=== PATIENT | male | born 1945 | race Caucasian/White ===

== ENCOUNTER 2024-06-14 09:14 | Emergency (ER) | payer MEDICARE, OTHER, SELFPAY ==
--- NOTE | ~2024-06-14 | XR_ITS ---
EXAMINATION: XR knee LT 3V DATE: 06/14/2024 10:04 INDICATION: Left knee pain. Fall. TECHNIQUE: 3 views of left knee were obtained. COMPARISON: None. FINDINGS: Alignment is normal. No fracture. There is moderate osteoarthritis of patellofemoral compar tment and mild osteoarthritis of medial and lateral compartments. There is a moderate-sized knee join t effusion. There are dystrophic calcifications in the area of the joint capsule. There are surgical clips in the medial thigh and lower leg. IMPRESSION: 1. Moderate left knee osteoarthritis. 2. Moderate-sized left knee joint effusion. Reviewed, dictated and finalized at location A. TATISTICS DIRECTOR
--- NOTE | ~2024-06-14 | CT_ITS ---
EXAMINATION: CT BRAIN W/O DATE: 06/14/2024 11:19 INDICATION: Head injury TECHNIQUE: Computed tomography (CT) of the head was performed without intravenous contrast. The dose- length product was 605.33 mGy-cm. Automated exposure control and iterative reconstruction technique w ere employed. COMPARISON: No prior studies for comparison. FINDINGS: Normal brain parenchymal volume for age. Normal campbell-white differentiation. No acute intrac ranial hemorrhage, infarction, mass or mass effect. There are scattered mild periventricular and subc ortical white matter changes, most likely related to small vessel ischemic disease (microangiopathy). No ventriculomegaly or midline shift. Midline sagittal images demonstrate a normal corpus callosum, c raniovertebral junction and sella turcica. Basilar cisterns are pa there is mild mucosal thickening o f the maxillary sinuses. Mastoids are pneumatized. No depressed skull fractures. Tent. Paranasal sinuses and mastoids are pneumatized. No depressed skull fractures. IMPRESSION: 1. No acute intracranial abnormality. Reviewed, dictated and finalized at location B. T EDUCATOR
[2024-06-14 09:21] VITALS: BP 156/105; PULSE 71; RESP 20; TEMP 36.9; O2SAT 97
[2024-06-14 10:52] VITALS: BP 179/71; PULSE 80; RESP 22; O2SAT 96
[2024-06-14] MEDS: ONDANSETRON HCL ODT 4 MG TABLET PO (11:04)
[2024-06-14] MEDS: HYDROcodone/acetaminophen (*CRX) 5-325 MG TABLET 1 TAB PO (11:04)
[2024-06-14 12:47] VITALS: BP 169/69; PULSE 64; RESP 17; TEMP 36.6; O2SAT 98
--- NOTE | 2024-06-14 12:51 | ED_ITS ---
HPI - Extremity Injury (Lower) General Chief Complaint: Extremity Injury, Lower Stated Complaint: fall, L knee pain Time Seen by Provider: 06/14/24 10:51 History of Present Illness HPI Narrative: Patient is a 78-year-old male who presents to the ER with left-sided knee pain. He tripped and fell in his shed yesterday. He hit his head with no LOC. Abrasions to the upper lip. Knee is swollen. Has pain laterally. Has discomfort with bearing weight but can stand. Related Data Allergies Allergy/AdvReac Type Severity Reaction Status Date / Time Horse Serum Proteins Allergy Mild Unknown Uncoded 06/14/24 10:54 Review of Systems Constitutional: Constitutional: Reports no additional constitutional complaints Cardiovascular: Cardiovascular: Reports no additional cardiovascular complaints Respiratory: Respiratory: Reports no additional respiratory complaints Musculoskeletal: Musculoskeletal: Reports arthralgias and Reports joint swelling PMFSH Past Medical History Medical History (Updated 06/14/24 @ 20:12 by Sachin Umana MD) Insulin dependent diabetes mellitus Social History Social History Smoking status: Former smoker Smoking end date: 06/05/10 Alcohol intake: never Exam Narrative: GENERAL: Well-appearing, well-nourished, and in no acute distress. HEAD: Normocephalic, atraumatic. ENT: Abrasions to the right upper lip. Mild swelling of the right upper lip. CHEST: Clear to auscultation. No respiratory distress. HEART: Regular rate and rhythm. Normal peripheral pulses.. EXTREMITIES: Left knee effusion with lateral joint line tenderness. Mild bruising. 1+ edema bilateral lower extremities. Limited range of motion due to pain in left knee. SKIN: Warm, dry, no rash. NEURO: Alert and oriented x3. PSYCH: Normal mood and affect. Course Course Emergency Course: No fracture on imaging. Head imaging without bleeding. Discharge home with supportive care. Vital Signs Vital signs: Vital Signs Temperature 98.4 F 06/14/24 09:21 Pulse Rate 71 06/14/24 09:21 Respiratory Rate 20 06/14/24 09:21 Blood Pressure 156/105 H 06/14/24 09:21 Pulse Oximetry 97 06/14/24 09:21 Oxygen Delivery Room Air 06/14/24 09:21 Temperature 97.8 F 06/14/24 12:47 Pulse Rate 64 06/14/24 12:47 Respiratory Rate 17 06/14/24 12:47 Blood Pressure 169/69 H 06/14/24 12:47 Pulse Oximetry 98 06/14/24 12:47 Oxygen Delivery Room Air 06/14/24 09:21 Discharge Plan Discharge Clinical Impression: Effusion of knee joint, left Patient Disposition: Home, Self-Care Condition: Stable Instructions: Swollen Knee Joint (ED), P.R.I.C.E. Treatment (ED) Additional Instructions: You may have irritated the arthritis in her knee or injury your meniscus. Wear the Joey wrap or supportive knee sleeve. Follow up with Orthopedic surgery or your primary care doctor for further treatment and evaluation. Take Tylenol with hydrocodone as needed for pain. Patient Language: Tamazight Prescriptions: New hydrocodone-acetaminophen 5-325 mg tablet 1 tablet PO Q6H PRN (Reason: pain) Qty: 12 0RF docusate sodium [Colace] 100 mg capsule 100 mg PO BID Qty: 14 0RF Follow-up/Referrals: Gerard Mo MD [Primary Care Provider] - 1 Week
== END 2024-06-14 13:55 | disposition home or self-care (01) ==
PROVIDERS: Emergency Provider Emergency Medicine; PCP Emergency Medicine
DX: S80.02XA Contusion of left knee, initial encounter (principal); M25.462 Effusion, left knee; S00.511A Abrasion of lip, initial encounter; E11.9 Type 2 diabetes mellitus without complications; M17.12 Unilateral primary osteoarthritis, left knee; Z87.891 Personal history of nicotine dependence; W01.0XXA Fall on same level from slipping, tripping and stumbling without subsequent striking against object, initial encounter
CPT/HCPCS: 70450; 73562; 99284; A9270

== ENCOUNTER 2024-09-05 13:32 | Emergency (ER) | payer MEDICARE, OTHER, SELFPAY ==
--- NOTE | ~2024-09-05 | XR_ITS ---
CHEST RADIOGRAPH, PA AND LATERAL CLINICAL HISTORY: chest pain, weakness . COMPARISON: 06/29/2016 TECHNIQUE: PA and lateral views of the chest. FINDINGS Sternal wires and mediastinal clips are identified, the wires are midline and intact. Tunneled right internal jugular central venous hemodialysis catheter identified with its tip projecti ng over the cavoatrial junction. The remainder of the cardiomediastinal silhouette is otherwise unremarkable. The lungs are clear. IMPRESSION: No focal infiltrate or effusion. Reviewed, dictated and finalized at location A.
--- NOTE | 2024-09-05 13:41 | ECG_ITS ---
Test Date: 2024-09-05 13:51:57 Measurements Intervals [place] Rate: 61 P: 58 WV: 165 QRS: 33 QRSD: 105 T: 56 QT: 476 QTc: 481 Interpretive Statements SINUS RHYTHM INCOMPLETE RIGHT BUNDLE BRANCH BLOCK BASELINE ARTIFACT- I, II, III, AVR, V3-V5 BORDERLINE ECG No previous ECG available for comparison Electronically Signed On 09-05-2024 16:00:58 CDT by Home Preciado D.O.
[2024-09-05 13:42] VITALS: BP 158/90; PULSE 63; RESP 19; TEMP 36.7; O2SAT 100
[2024-09-05 13:44] VITALS: O2SAT 100
[2024-09-05 13:55] VITALS: PULSE 63
[2024-09-05 14:03] LABS: Basophils Absolute Auto 0.1 K/mm3 (0.0-0.1); Basophils Percent Auto 0.7 % (0.2-1.2); Eosinophils Absolute Auto 0.3 K/mm3 (0-0.3); Eosinophils Percent Auto 3.3 % (0-4.4); Hematocrit 32.9 % (42.0-52.0); Hemoglobin 10.5 g/dL (14.0-18.0); Immature Granulocyte Absolute 0.02 K/mm3 (0.00-0.031); Immature Granulocyte Percent A 0.2 % (0-0.5); Lymphocytes Absolute Auto 1.44 K/mm3 (0.9-3.2); Lymphocytes Percent Auto 17.1 % (18.3-44.2); Mean Corpuscular HGB Conc 31.9 g/dl (32-36); Mean Corpuscular Hemoglobin 27.8 pg (26-34); Mean Platelet Volume 9.7 fl (7.4-10.4); Monocytes Absolute Auto 0.9 K/mm3 (0.1-0.6); Monocytes Percent Auto 11.2 % (2.6-8.5); Neutrophils Absolute Auto 5.7 K/mm3 (1.3-6.7); Neutrophils Percent Auto 67.5 % (45.5-73.1); Platelet Count Result 179 k/mm3 (150-375); Red Blood Count 3.78 M/mm3 (4.6-6.20); Red Cell Distribution Width 17.7 % (11.5-14.5); White Blood Count 8.4 K/mm3 (4.5-10.0)
[2024-09-05 14:16] LABS: Alanine Aminotransferase 16 U/L (6-50); Albumin Level 3.5 g/dL (3.5-5.1); Alkaline Phosphatase 91 U/L (38-126); Anion Gap 9 mmol/L (4-12); Aspartate Amino Transferase 21 U/L (17-59); Bilirubin,Total 0.6 mg/dL (0.2-1.3); Blood Urea Nitrogen 27 mg/dL (9-20); Calcium 7.5 mg/dL (8.4-10.2); Carbon Dioxide 26 mmol/L (22-30); Chloride 101 mmol/L (98-107); Estimated CRCL calculation 17 ml/min; Estimated Glomerular Filt Rate 17; Glucose 172 mg/dL (65-110); Lipase 65 U/L (23-300); Potassium 3.3 mmol/L (3.4-5.0); Prothrombin Time 13.4 Seconds (11.1-14.7); Sodium 136 mmol/L (137-145)
[2024-09-05 14:17] LABS: Partial Thromboplastin Time 30.6 Seconds (22.3-36.8)
[2024-09-05 14:28] LABS: Troponin I 0.013 ng/mL (0.000-0.034)
--- OUTSIDE RECORDS SUMMARY | 2024-09-05 14:40 | XMS_ITS ---
Author Organization [facility] al Address [address] [place] [address] Care Team Providers Care Digital Sales Executive Name Role Phone Marcella Taylor MD Unavailable Anselmo Sampson MD Primary Care Provider [phone] Active Problems Problem Noted Date Diagnosed Date ESRD (end stage renal disease) on dialysis 08/27 ESRD (end stage renal disease) 07/11/2024 Assessment & Plan (07/14/2024 9:38 AM POWER ORIGINATOR): Patient has had progression of CKD to now ESRD needing dialysis initiation given c/f uremia symptoms. Directly admitted per renal. Underwent tunneled dialysis catheter by IR on 07/12 and received HD on 07/12 and 07/13 -Hemodialysis as per Nephrology -Continue home bicarb URI (upper respiratory infection) 07/11/2024 Assessment & Plan (07/12/2024 12:59 PM POWER ORIGINATOR): Suspected viral. COVID/flu/RSV neg 07/09. CXR neg 07/10. Was prescribed azithromycin on 07/09 which he took for 3 days. Will not continued further -Supportive care Hypomagnesemia 01/02/2024 CKD (chronic kidney disease) stage 4, GFR 15-29 ml/min 04/16/2023 Assessment & Plan (07/25/2023 10:06 AM POWER ORIGINATOR): Chronic problem. Managed by Dr Flores. Has f/u appt at end of the month. Assessment & Plan (04/16/2023 8:48 PM POWER ORIGINATOR): Chronic, stable Following with Online Advertising Analyst Acute kidney injury 02/24/2023 (HFpEF) heart failure with preserved ejection fr action 02/24/2023 Assessment & Plan (02/24/2023 3:38 PM CDT): TTE with EF 77% and at least grade 1 diastolic dysfunction (indeterminate on last TTE). Not in exacerbation -Cont home lasix 40mg -strict I&Os, daily weights -F/u with OSH Orchid Grower Dr. Payton CAD (coronary artery disease) 02/24/2023 Assessment & Plan (02/24/2023 3:38 PM CDT): S/p prior 5v CABG in 2012 -Cont statin and coreg -Intolerant of PATI-I/ARB due to worsening renal function -ASA held due to procedure -F/u with Cardiology outpatient Hyperlipidemia associated with type 2 diabetes aimee ulloa 02/24/2023 Assessment & Plan (07/11/2024 9:32 PM POWER ORIGINATOR): -Continue home welchol -Atorvastatin for home pitavastatin (non-formulary) Assessment & Plan (05/13/2024 9:10 AM POWER ORIGINATOR): Continue statin therapy Assessment & Plan (11/16/2023 11:18 AM CDT): Chronic problem. Currently taking Pitavatatin 4mg daily. Last lipid panel: 02/24/23 LDL=76, DX=646. Assessment & Plan (07/25/2023 10:22 AM POWER ORIGINATOR): Chronic problem. Currently taking Pitavatatin 4mg daily. Last lipid panel: 02/24/23 LDL=76, HF=290. Assessment & Plan (04/16/2023 8:46 PM POWER ORIGINATOR): On Pitavastatin therapy Tolerating well Assessment & Plan (02/24/2023 3:39 PM CDT): Cont statin and colesevelam Type 2 diabetes mellitus wit h stage 4 chronic kidney disease, with long-term current use of insulin 02/24/2023 Assessment & Plan (07/11/2024 9:31 PM POWER ORIGINATOR): F/b endo. Home regimen: tresiba 5U QHS, aspart 6-8U TID with meals Pt/ report issues with hypoglycemia lately at home. -Will start with SSI for now; titrate/add scheduled insulin pending glucose trends Assessment & Plan (05/13/2024 9:10 AM POWER ORIGINATOR): Chronic, uncontrolled, worsening Hemoglobin A1c 6.8 A1c is at goal but blood sugars are worsening in the last 2 weeks due to holidays Reviewed Dexcom G6 download Average blood sugar 195 Target blood sugar range 47% High 36% Very high 17% Low 0% Significant postprandial hyperglycemia noted Counseled on diet Advised patient to cut back his diet once the holidays are done Decrease Tresiba to 4-6 units daily at bedtime Advise to have a small bedtime snack every day Work on diet back after holidays Make your eye exam appointment soon Daily foot care Advise to call [employer] and get the dexcom G 6 sensor to switch to G7 Check labs today Follow-up in 6 months Assessment & Plan (11/16/2023 11:17 AM CDT): Chronic problem. A1c stable at 6.1% but having overnight lows & occasionally lows after LN. Call your [employer] to switch from Dexcom G6 to Dexcom G7. Lower tresiba to 6 units nightly. If you notice that your over night readings are too high--start to increase by 1 unit weekly until they return to normal. If you're eating a phlebotomist associate lunch--drop the Fiasp to 6 units. Current medications: Tresiba 6 units at bedtime Fiasp 4 units with breakfast & dinner, 8 units with lunch (6 units if phlebotomist associate lunch) If blood sugar is between 151-200, add 1 units. If blood sugar is between 201-250, add 2 units. If blood sugar is between 251-300, add 3 units. If blood sugar is between 301-350, add 4 units. UTD on DM eye exam (06/15/23 at [facility] UTD on labs. Discussed with Navdeep Payton: Strive for regular exercise (30min most days) and diet (get at least 4-5 servings of fruit and veggies daily, avoid processed foods, increase lean protein intake and decrease carb portions as well as fruit juices, regular soda & desserts). Watch carbs and simple sugars. Check the blood sugar: dexcom G6. Check the feet daily for skin breakdown and infection. Assessment & Plan (07/25/2023 10:02 AM POWER ORIGINATOR): Chronic problem. A1c stable at 6.1% but having overnight lows & occasionally lows after LN. Call your supply company to switch from Dexcom G6 to Dexcom G7. Lower tresiba to 6 units nightly. If you notice that your over night readings are too high--start to increase by 1 unit weekly until they return to normal. If you're eating a phlebotomist associate lunch--drop the Fiasp to 6 units. Current medications: Tresiba 6 units at bedtime Fiasp 4 units with breakfast & dinner, 8 units with lunch (6 units if phlebotomist associate lunch) If blood sugar is between 151-200, add 1 units. If blood sugar is between 201-250, add 2 units. If blood sugar is between 251-300, add 3 units. If blood sugar is between 301-350, add 4 units. DM eye exam 06/2023 at [facility]. Letter sent to get copy of report. UTD on labs. Discussed with Navdeep Payton: Strive for regular exercise (30min most days) and diet (get at least 4-5 servings of fruit and veggies daily, avoid processed foods, increase lean protein intake and decrease carb portions as well as fruit juices, regular soda & desserts). Watch carbs and simple sugars. Check the blood sugar: dexcom G6. Check the feet daily for skin breakdown and infection. Assessment & Plan (04/16/2023 8:47 PM POWER ORIGINATOR): Chronic , improving overall hyperglycemia but now complicated by hypoglycemia A1c - 6.1 % Reviewed Dexcom download Keep taking tresiba 8-10 units Sq daily at bedtime Fiasp insulin 4 units with breakfast and dinner and 8 units with lunch + below correctional scale 151 - 200 + 1 units 201 - 250 + 2 units 251 - 300 + 3 units Over 301 + 4 units Assessment & Plan (02/24/2023 3:40 PM CDT): A1C 6.5%, on Tresiba 6U QHS, lispro 5-6U TID with meals -Dose reduce to lantus 6U QHS and lispro 4U TID +SSI; adjust PRN -F/u with OSH spark plug assembler Proteinuria 02/24/2023 Assessment & Plan (02/25/2023 7:46 AM CDT): P/w notably worsened renal function over the past year (Cr 2s at the beginning of the year to now 4.82 on 02/08). Protein:Cr ratio was 2,632 mg/g on 01/05/2023 (previously 3,473). Initially presumed 2/2 to Sutent, but renal function has continued to worsen despite holding this for over 2 months. Unclear etiology of worsening as this seems rapid for hypertensive/diabetic nephropathy. Now s/p renal biopsy 02/24 -F/u with Nephrology Dr. Flores outpatient next week 03/02 Antineoplastic chemotherapy induced anemia 02/03 Proteinuria 02/03/2022 Renal osteodystrophy 02/03/2022 CKD stage G3b/A1, GFR 30-44 and albumin creatinine ratio <30 mg/g 11/04/2021 Anemia 11/04/2021 Assessment & Plan (07/12/2024 12:57 PM POWER ORIGINATOR): Getting aranesp outpatient -Trend CBC -Transfuse PRN HGB<7 Assessment & Plan (02/25/2023 7:45 AM CDT): Baseline Hgb 9-10s, related to AOCD and prior B12 deficiency s/p B12 injections; he has also received Aranesp in the past. No signs of bleeding currently -Admission CBC timed for 6 hours post procedure was stable Renal insufficiency 11/04/2021 Hypertension associated with diabetes 11/04/2021 Assessment & Plan (07/11/2024 9:30 PM POWER ORIGINATOR): -Continue home amlodipine, hydralazine, coreg Assessment & Plan (05/13/2024 9:11 AM POWER ORIGINATOR): Chronic, fairly controlled for pt age Continue amlodipine Managed by nephrology Assessment & Plan (11/16/2023 11:18 AM CDT): Chronic problem. Controlled on current Carvedilol 25mg bid, amlodipine 10mg daily, lasix 20mg daily. not taking hydralazine currently Assessment & Plan (07/25/2023 10:05 AM POWER ORIGINATOR): Chronic problem. Controlled on current Carvedilol 25mg bid, amlodipine 10mg daily, lasix 20mg daily. 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 Resume on discharge. Nephrology made aware that it is vascular endothelial growth factor inhibitor and will need to be held 2 weeks before graft/fistula formation so they will need to coordinate with Oncology. Assessment & Plan (02/24/2023 3:35 PM CDT): F/b Dr. Taylor, with peritoneal mets. Ernst has been on hold since 12/08/2022 for possible contribution to worsening renal function -F/u with Oncology outpatient Dehydration 01/24/2019 Current Treatment and Therapy Plans Electrolyte Replacement* Plan Start Date:01/05/2024 Plan Provider:Marcella Taylor MD Linked Problems GIST (gastrointestinal aracely a tumor), malignant, colon (HCC)Hypomagnesemia Treatment Medications No medications scheduled. Hydration Therapy Plan* Plan Start Date:10/13/2023 Plan Provider:Marcella Taylor MD Linked Problems GIST (gastrointestinal aracely a tumor), malignant, colon (HCC)Dehydration Treatment Medications No medications scheduled. ONC Adult Blood Administration for Inpatient* Plan Start Date:07/11/2024 Plan Provider:Marcella Taylor MD Linked Problems GIST (gastrointestinal aracely a tumor), malignant, colon (HCC)Anemia due to chronic kidney disease, on chronic dialysis (HCC) Treatment Medications No medications scheduled. 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 Past Treatment and Therapy Plans Oncology Chemotherapy Treatment Plan Name Start Date Discontinue Date Treatment Medications Discontinue Reason Plan Provider Cycles Sunitinib 50 mg PO 42 Day Cycles 12/09/2020 09/21/2023 SUNItinib malate (SUTENT) Provider Discretion Marcella Taylor MD 9 of 12 cycles started Imatinib PO Daily 28 Days 09/10/2020 12/08/2020 No medications scheduled. Progressive Disease Marcella Taylor MD Treatment not started Imatinib Daily Started 08/06/16 prior to [place] [employer] 8 07/31/2020 imatinib (GLEEVEC) Therapy Complete Marcella Taylor MD Treatment not started Oncology Treatment (2) Plan Name Start Date Discontinue Date Treatment Medications Discontinue Reason Plan Provider Cycles Regorafenib 80 mg Titrated to 160 mg PO 28 Day Cycles - GI 4 10/26/2023 regorafenib (STIVARGA) Provider Discretion Marcella Taylor MD 1 of 6 cycles started Lifetime Dose Tracking * Chemical Lifetime Dose Automatic Entry Manual Entr y Fluoro Time 0.4 minutes 0.4 minutes 0 minutes Air kerma at the reference point (Ka,r) 3 mGy 3 mGy 0 mGy DLP 7,305 mGycm 7,305 mGycm 0 mGycm Resolved Problems Problem Noted Date Diagnosed Date Resolved Date LÓPEZ (acute kidney injury) 02/24/2023 Viral infection 01/24/2019 11/15/2023
--- OUTSIDE RECORDS SUMMARY | 2024-09-05 14:40 | XMS_ITS | Clinical Summary ---
Author Organization [facility] Address [address], [facility] [address] [place] [address] Phone Care Team Providers Care Motion Picture Set Up Worker Name Role Phone Gerard Mo Primary Care Provider [phone] Allergies No known active allergies Medications citalopram (CELEXA) 20 MG Tablet 07/04/2016 Active WELCHOL 625 MG Tablet 04/21/2016 Active glimepiride (AMARYL) 4 MG Tablet 06/09/2016 Active ONE TOUCH ULTRA TEST Strip USE TO TEST BLOOD SUGAR 3 TIMES A DAY 10 05/05/2016 Active hydrALAZINE 50 MG Tablet 06/08/2016 Active LANTUS SOLOSTAR 100 UNIT/ML Solution Pen-injector 07/06/2016 Active metFORMIN (GLUCOPHAGE) 500 MG Tablet 04/21/2016 Active metoprolol tartrate (LOPRESSOR) 50 MG Tablet 04/20/2016 Active LIVALO 4 MG Tablet 04/21/2016 Active JANUVIA 100 MG Tablet 06/08/2016 Active ALPRAZolam (XANAX) 0.5 MG Tablet Take 0.5 mg by mouth 3 times daily as needed. Active [place]-3 Fatty Acids (FISH OIL PO) Take by mouth. Active codeine 30 MG Tablet Take 30 mg by mouth every 4 hours as needed. Active Aspirin 81 MG Tablet Take 81 mg by mouth daily. 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, malignant 07/07/2016 Family History Medical History Relation Name Comments Cancer Father Relation Name Status Comments Father Mother Social History Tobacco Use Types Packs/Day Years Used Date Smoking Tobacco: Former Alcohol Use Standard Drinks/Week Comments No 0 (1 standard drink = 0.6 oz pur e alcohol) Sex and Gender Information Value Date Recorded Sex Assigned at Not on file Legal Sex Male 2:48 PM CLIN NURSE Gender Identity Not on file Sexual Orientation Not on file Last Filed Vital Signs Vital Sign Reading Time Taken Comments Blood Pressure 132/82 07/07/2016 2:43 PM CLIN NURSE Pulse 73 07/07/2016 2:43 PM CLIN NURSE Temperature 37 C (98.6 F) 07/07/2016 2:43 PM CLIN NURSE Respiratory Rate - - Oxygen Saturation 97% 07/07/2016 2:43 PM CLIN NURSE Inhaled Oxygen Concentration - - Weight 101.6 kg (224 lb) 07/07/2016 2:43 PM CLIN NURSE Height 175.3 cm (5' 9 ) 07/07/2016 2:43 PM CLIN NURSE Body Mass Index 33.08 07/07/2016 2:43 PM CLIN NURSE Plan of Treatment Health Maintenance Due Date Last Done Comments Hepatitis C Virus (HCV) Screening 1945 TdaP Immunization 1945 SARS-COV-2 Immunization (#1) 1950 Pneumococcal Immunization (5 0+ years) (1 of 2 - PCV) 1964 Zoster Immunization (1 of 2) 1964 Respiratory Syncytial Virus (RSV) Immunization (Adult) (1 - 1-dose 75+ series) 2020 Influenza Immunization (#1) 2024 Hepatitis B Immunization Aged Out No longer eligible based on patient's age to complete this topic Meningococcal Immunization (ACWY) Aged Out No longer eligible based on patient's age to complete this topic Rotavirus Immunization Aged Out No lo nger eligible based on patient's age to complete this topic Insurance MEDICARE COMMERCIAL GENERIC Care Teams Motion Picture Set Up Worker Relationship Specialty Start Date End Date Gerard Mo [address] [place] [address] PCP - General Family Medicine 07/04/16
--- OUTSIDE RECORDS SUMMARY | 2024-09-05 14:40 | XMS_ITS | Encounter Summary ---
Author Organization [facility] Address [address] [facility] [address] [place] [address] Phone Care Team Providers Care Assembly Line Supervisor Name Role Phone Gerard Mo MD Primary Care Provider [phone] Marcella Taylro MD Unavailable Anselmo Sampson MD Primary Care Provider [phone] Encounter Details Date Type Department Care Team (Latest Contact Info) Description 07/20/2021 Orders Only [facility] Scanning, Provider Social History Tobacco Use Types Packs/Day Years Used Date Smoking Tobacco: Former Cigarettes 1.5 14 1 967 - 1981 Smokeless Tobacco: Never AUDIT-C Answer Date Recorded Q1: How often do you have a drink containing alc ohol? Never 05/19/2021 Average Number of Drinks Not on file 021 Frequency of Binge Drinking Not on file 05/05 Sex and Gender Information Value Date Recorded Sex Assigned at Not on file Legal Sex Male 6:14 AM GEOLOGICAL SCOUT Gender Identity Not on file Sexual Orientation Not on file documented as of this encounter Plan of Treatment Upcoming Encounters Date Type Department Care Team (Latest Contact Info) Description 09/20/2024 7:30 AM CDT Hospital Encounter [facility] Operating [address] [place] [address] Godfrey Villarreal MD [address] [facility] [id number] [place] [address] 09/20/2024 7:30 AM CDT - 09/20/2024 10:40 AM CDT Surgery [facility] Operating [address] [place] [address] Godfrey Villarreal MD [address] [facility] [id number] [place] [address] CREATION ARTERIOVENOUS FISTULA - ARM Scheduled Procedures Name Priority Associated Diagnoses Date/Ti me CREATION ARTERIOVENOUS FISTULA - ARM ESRD (end stage renal disease) on dialysis (HCC) 09/20/2024 7:30 AM CDT documented as of this encounter Procedures Procedure Name Priority Date/Time Associated Diagnosis Comments SCAN - LABS 07/20/2021 documented in this encounter Results * SCAN - LABS (07/20/2021) us Provider Scanning Final Result documented in this encounter Visit Diagnoses Not on filedocumented in this encounter Additional Health Concerns Infection Onset Date Last Indicated Resolved Time COVID: Suspected 10/09/2023 10/09/2023 10/09/2023 2:41 PM CDT COVID: Suspected 07/09/2024 07/09/2024 07/09/2024 11:36 AM GEOLOGICAL SCOUT COVID: Suspected 07/09/2024 07/09/2024 07/09/2024 4:05 PM GEOLOGICAL SCOUT documented as of this encounter Care Teams Assembly Line Supervisor Relationship Specialty Start Date End Date Gerard Mo MD PCP - General 11/01/17 04/25/22 [place] [address] [address] PCP - General Family Practice 04/26/22 Marcella Taylor MD [address] [place] [address] [address] [place] [address] Medical Oncologist/Medical Geneticist Medical Oncology 08/08/20 documented as of this encounter
--- OUTSIDE RECORDS SUMMARY | 2024-09-05 14:40 | XMS_ITS | Referral Summary ---
Author Organization [facility] al Address [address] [place] [address] Care Team Providers Care Baker Apprentice Name Role Phone Marcella Taylor MD Unavailable Anselmo Sampson MD Primary Care Provider [phone] Encounters Date Type Department Care Team Description 08/27/2024 Telephone [facility] Surgery [address] [facility] Floor 1 [place] [address] Godfrey Villarreal MD 08/26/2024 Telephone [facility] Surgery [address] [facility] Floor 1 [place] [address] Godfrey Villarreal MD 08/14/2024 11:30 AM CDT Lab [facility] [address] [place] [id number] GIST (gastrointestinal stroma tumor), malignant, colon (HCC); 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 08/12/2024 9:45 AM CDT Office Visit [facility] Vascular Surgery [address] [facility] Medical Office Building 3 [address] [place] [address] Godfrey Villarreal MD ESRD (end stage renal disease) (HCC) (Primary Dx) 08/12/2024 8:45 AM CDT Ancillary Procedure [facility] Vascular Lab Vascular Surgery [address] [place] [address] [address], [place] [place] [address] ESRD (end stage renal disease) (HCC) 07/31/2024 Orders Only [facility] Oncology [address] [place] [phone] Gamble Thera A. 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 07/15/2024 Orders Only [facility] Surgery [address] [facility] Advanced Medicine 8th [place] [address] [place] [address] Godfrey Villarreal MD ESRD (end stage renal disease) (HCC) (Primary Dx) 07/14/2024 Orders Only Nephrology Do Flores MD ESRD (end stage renal disease) (HCC) (Primary Dx) 07/11/2024 6:19 PM INSIDE SALES REPRESENTATIVE - 07/14/2024 1:13 PM INSIDE SALES REPRESENTATIVE Hospital Encounter [address] [address] Marcella Taylor MD Kumar, Amrat, MD Type 2 diabetes mellitus with hypoglycemia without coma, with long-term current use of insulin (HCC) Discharge Disposition: Discharge to home or self care 07/11/2024 Orders Only [facility] Scanning, Provider 07/11/2024 Documentation Nephrology Do Flores MD 07/10/2024 Documentation [facility] Division of Nephrology [address] [facility] [address] [place] [address] Sachin Rousseau RN 07/09/2024 11:52 AM INSIDE SALES REPRESENTATIVE - 07/09/2024 11:59 PM INSIDE SALES REPRESENTATIVE Hospital Encounter [address] [address] Acute viral syndrome Discharge Disposition: Discharge to home or self care 07/09/2024 10:45 AM INSIDE SALES REPRESENTATIVE Office Visit [facility] at [address] [address] Manjula Gonzalez NP Acute viral syndrome (Primary Dx) 07/05/2024 Telephone [facility] Nephrology [address] [place] [address] for Advanced Medicine 5th [place] [address] Do Flores MD cortisone shot 07/04/2024 Telephone [facility] Nephrology [facility] Dialysis [address] [place] [address] Do Flores MD Dialysis Planning 07/03/2024 Orders Only [facility] Nephrology [address] [place] [address] Advanced Medicine 5th [place] [address] Do Flores MD CKD stage 5 due to type 2 diabetes mellitus (HCC) (Primary Dx) 07/03/2024 1:30 PM INSIDE SALES REPRESENTATIVE Infusion [address] [address] Anemia due to stage 3 chronic kidney disease, unspecified whether stage 3a or 3b CKD (HCC) (Primary Dx); GIST (gastrointestinal stroma tumor), malignant, colon (HCC); 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) 07/03/2024 12:15 PM INSIDE SALES REPRESENTATIVE Lab [address] [address] GIST (gastrointestinal stroma tumor), malignant, colon (HCC); 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) 07/03/2024 12:45 PM INSIDE SALES REPRESENTATIVE Office Visit [facility] Oncology [address] [place] [phone] Marcella Taylor MD 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) (Primary Dx); GIST (gastrointestinal stroma tumor), malignant, colon (HCC) 07/01/2024 Orders Only [address] [address] Renetta Mccall RPh 06/27/2024 7:32 AM INSIDE SALES REPRESENTATIVE - 06/27/2024 11:59 PM INSIDE SALES REPRESENTATIVE Hospital Encounter [facility] Imaging [address] [facility] Medical Office Building [address] [place] [address] GIST (gastrointestinal stroma tumor), malignant, colon (HCC); 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) Discharge Disposition: Discharge to home or self care 06/18/2024 Orders Only [facility] Oncology [address] [place] [phone] Jose Antonio Gamble GIST (gastrointestinal stroma tumor), malignant, colon (HCC) (Primary Dx); 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) 06/17/2024 Telephone [facility] Oncology [address] [place] [phone] Adali Haji RN from Last 3 Months Allergies No known active allergies Medications cholecalciferol (VITAMIN D-3) 2,000 unit tabletIndications:Vi tamin D Deficiency Take 1 tablet (2,000 Units total) by mouth every morning Active coenzyme Q10 200 mg capsuleIndications:H elps cholesterol med work better Take 1 capsule (200 mg total) by mouth every morning Active carvediloL (COREG) 25 mg tabletIndications:hy pertension Take 1 tablet (25 mg total) by mouth 2 (two) times a day 020 Active cetirizine (ZyrTEC) 10 mg tabletIndications:Pe rennial Allergic Rhinitis Take 1 tablet (10 mg total) by mouth daily as needed for allergies Active colesevelam (WELCHOL) 625 mg tablet Take 1 tablet (625 mg total) by mouth 2 (two) times a day with meals Active uxrukrh-tdisvtxhi-re nc 333-133-5 mg tabletIndications:Vi tamin Deficiency Prevention Take 1 tablet by mouth every morning Active amLODIPine (NORVASC) 10 mg tablet Take 1 tablet (10 mg total) by mouth daily 90 tablet 2 Active Additional Information Patient taking differently:10 mg oralEvery morning, Indications: hypertension, Informant: Self, Reported on 09/02/2024 blood-glucose meter kitIndications:Type 2 diabetes mellitus with hypoglycemia without coma, with long-term current use of insulin ([facility]) Use daily or as directed for monitoring of diabetes 1 kit Active Additional Information Patient taking differently: 1 each miscellaneous 5 times daily PRN, Use daily or as directed for monitoring of diabetes / Back up to Dexcom 7 , Indications: type 2 diabetes mellitus, Informant: Self, Reported on 09/02/2024 onetouch ultrasoft lancetsIndications:T ype 2 diabetes mellitus with hypoglycemia without coma, with long-term current use of insulin ([facility]) Check blood sugar 3 times daily 200 each 3 Active Additional Information Patient taking differently: 1 each other As needed, Only used as backup to Dexcom 7, Check blood sugar 4-5 times daily- only uses as backup to Dexcom 7, Indications: type 2 diabetes mellitus, Informant: Self, Reported on 09/02/2024 TRESIBA 100 unit/mL (3 mL) pen for injectionIndications :Type 2 diabetes mellitus with hypoglycemia without coma, with long-term current use of insulin ([facility]) Inject 0.06 mL (6 Units total) under the skin nightly 15 mL 2 024 Active Additional Information Patient taking differently:6 Units subcutaneous Nightly,Indications: type 2 diabetes mellitus, Informant: Self, Reported on 09/02/2024 BD Ultra-Fine Mini Pen Needle 31 gauge x 3/16 needle 1 each 4 (four) times a day before meals and nightly 400 each 3 024 Active hydrALAZINE (APRESOLINE) 25 mg tabletIndications:hy pertension Take 1 tablet (25 mg total) by mouth nightly Active ergocalciferol (VITAMIN D) 50,000 unit capsuleIndications:V itamin D deficiency Take 1 capsule (50,000 Units total) by mouth every 2 (two) weeks 8 capsule 3 Active Additional Information Patient taking differently:50,000 Units oral Every 2 weeks,Every other week on a Monday - is next due 09/04/2024 , Indications: Vitamin D Deficiency, Informant: Self, Reported on 09/02/2024 FIASP 100 unit/mL (3 mL) pen for injection Inject 4-12 Units under the skin 3 (three) times a day before meals Dx e11.65 max daily dose 24 units 15 mL 3 024 Active Additional Information Patient taking differently:4-12 Units subcutaneous 3 times daily before meals,Dx e11.65 max daily dose 24 units / Depends on how many carbs he's going to eat and what blood sugar is at the time, Indications: type 2 diabetes mellitus, Informant: Self, Reported on 09/02/2024 tamsulosin (FLOMAX) 0.4 mg extended release capsuleIndications:B PH associated with nocturia Take 1 capsule (0.4 mg total) by mouth daily 30 capsule 3 024 Active Additional Information Patient taking differently:0.4 mg oralEvery morning, Indications: benign prostatic hyperplasia with lower urinary tract sx, Informant: Self, Reported on 09/02/2024 pitavastatin calcium (LIVALO) 4 mg tablet 024 Active cyanocobalamin (Vitamin B-12) 1,000 mcg/mL injectionIndications :Vitamin B12 deficiency INJECT 1 ML (1,000 MCG TOTAL) INTO THE MUSCLE INSTRUCTED EVERY 30 DAYS 3 mL 3 025 Active Additional Information Patient taking differently: 1,000 mcg intramuscular Every 30 days, About 20th of every month , Indications: Prevention of Vitamin B12 Deficiency, Informant: Self, Reported on 09/02/2024 ripretinib (QINLOCK) 50 mg tabletIndications:GI ST (gastrointestinal stroma tumor), malignant, colon (HCC),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 Swallow tablets whole, not crush or chew. Pharmacy to dispense in original container. 30 tablet 2 025 Active Additional Information Patient taking differently:50 mg oralNightly, Take at approximately the same time each day, with or without food. Swallow tablets whole, not crush or chew. Pharmacy to dispense in original container.,Indications: Gastrointestinal Stromal Tumor, Informant: Self, Reported on 09/02/2024 furosemide (LASIX) 20 mg tabletIndications:hy pertension Take 2 tablets (40 mg total) by mouth every morning 025 Active docusate sodium (COLACE) 100 mg capsuleIndications:c onstipation Take 1 capsule (100 mg total) by mouth 2 (two) times a day 025 Active blood-glucose sensor (Dexcom G7 Sensor) deviceIndications:ty pe 2 diabetes mellitus every 10 days Right arm as of 09/02/2024 Active acetaminophen (TYLENOL) 500 mg tabletIndications:Pa in Take 1 tablet (500 mg total) by mouth every 6 (six) hours as needed for pain or headaches Active sevelamer (RENVELA) 800 mg tabletIndications:Re nal Osteodystrophy with Hyperphosphatemia Take 2 tablets (1,600 mg total) by mouth 3 (three) times a day with meals Hasn't started yet/ just got it in the mail today Active HYDROcodone-acetamin ophen (NORCO) 5-325 mg per tablet Take by mouth every 6 (six) hours as needed 025 2024 Disconti nued(Err or) Active Problems Problem Noted Date Diagnosed Date ESRD (end stage renal disease) on dialysis 08/27 ESRD (end stage renal disease) 07/11/2024 Assessment & Plan (07/14/2024 9:38 AM INSIDE SALES REPRESENTATIVE): Patient has had progression of CKD to now ESRD needing dialysis initiation given c/f uremia symptoms. Directly admitted per renal. Underwent tunneled dialysis catheter by IR on 07/12 and received HD on 07/12 and 07/13 -Hemodialysis as per Nephrology -Continue home bicarb URI (upper respiratory infection) 07/11/2024 Assessment & Plan (07/12/2024 12:59 PM INSIDE SALES REPRESENTATIVE): Suspected viral. COVID/flu/RSV neg 07/09. CXR neg 07/10. Was prescribed azithromycin on 07/09 which he took for 3 days. Will not continued further -Supportive care Hypomagnesemia 01/02/2024 CKD (chronic kidney disease) stage 4, GFR 15-29 ml/min 04/16/2023 Assessment & Plan (07/25/2023 10:06 AM INSIDE SALES REPRESENTATIVE): Chronic problem. Managed by Dr Flores. Has f/u appt at end of the month. Assessment & Plan (04/16/2023 8:48 PM INSIDE SALES REPRESENTATIVE): Chronic, stable Following with [employer] Acute kidney injury 02/24/2023 (HFpEF) heart failure with preserved ejection fr action 02/24/2023 Assessment & Plan (02/24/2023 3:38 PM CDT): TTE with EF 77% and at least grade 1 diastolic dysfunction (indeterminate on last TTE). Not in exacerbation -Cont home lasix 40mg -strict I&Os, daily weights -F/u with OSH Chemical Maker Dr. Payton CAD (coronary artery disease) 02/24/2023 Assessment & Plan (02/24/2023 3:38 PM CDT): S/p prior 5v CABG in 2012 -Cont statin and coreg -Intolerant of PATI-I/ARB due to worsening renal function -ASA held due to procedure -F/u with Cardiology outpatient Hyperlipidemia associated with type 2 diabetes aimee ulloa 02/24/2023 Assessment & Plan (07/11/2024 9:32 PM INSIDE SALES REPRESENTATIVE): -Continue home welchol -Atorvastatin for home pitavastatin (non-formulary) Assessment & Plan (05/13/2024 9:10 AM INSIDE SALES REPRESENTATIVE): Continue statin therapy Assessment & Plan (11/16/2023 11:18 AM CDT): Chronic problem. Currently taking Pitavatatin 4mg daily. Last lipid panel: 02/24/23 LDL=76, NN=173. Assessment & Plan (07/25/2023 10:22 AM INSIDE SALES REPRESENTATIVE): Chronic problem. Currently taking Pitavatatin 4mg daily. Last lipid panel: 02/24/23 LDL=76, RI=973. Assessment & Plan (04/16/2023 8:46 PM INSIDE SALES REPRESENTATIVE): On Pitavastatin therapy Tolerating well Assessment & Plan (02/24/2023 3:39 PM CDT): Cont statin and colesevelam Type 2 diabetes mellitus wit h stage 4 chronic kidney disease, with long-term current use of insulin 02/24/2023 Assessment & Plan (07/11/2024 9:31 PM INSIDE SALES REPRESENTATIVE): F/b endo. Home regimen: tresiba 5U QHS, aspart 6-8U TID with meals Pt/ report issues with hypoglycemia lately at home. -Will start with SSI for now; titrate/add scheduled insulin pending glucose trends Assessment & Plan (05/13/2024 9:10 AM INSIDE SALES REPRESENTATIVE): Chronic, uncontrolled, worsening Hemoglobin A1c 6.8 A1c [...] soon Daily foot care Advise to call [employer] and get the dexcom G 6 sensor to switch to G7 Check labs today Follow-up in 6 months Assessment & Plan (11/16/2023 11:17 AM CDT): Chronic problem. A1c stable at 6.1% but having overnight lows & occasionally lows after LN. Call your [employer] to switch from Dexcom G6 to Dexcom G7. Lower tresiba to 6 units nightly. If you notice that your over night readings are too high--start to increase by 1 unit weekly until they return to normal. If you're eating a coremaker bench lunch--drop the Fiasp to 6 units. Current medications: Tresiba 6 units at bedtime Fiasp 4 units with breakfast & dinner, 8 units with lunch (6 units if coremaker bench lunch) If blood sugar is between 151-200, add 1 units. If blood sugar is between 201-250, add 2 units. If blood sugar is between 251-300, add 3 units. If blood sugar is between 301-350, add 4 units. UTD on DM eye exam (06/15/23 at [facility]). UTD on labs. Discussed with José Luis Gamble: Strive for regular exercise (30min most days) [...] infection. Assessment & Plan (07/25/2023 10:02 AM INSIDE SALES REPRESENTATIVE): Chronic problem. A1c stable at 6.1% but having overnight lows & occasionally lows after LN. Call your supply company to switch from Dexcom G6 to Dexcom G7. Lower tresiba to 6 units nightly. If you notice that your over night readings are too high--start to increase by 1 unit weekly until they return to normal. If you're eating a coremaker bench lunch--drop the Fiasp to 6 units. Current medications: Tresiba 6 units at bedtime Fiasp 4 units with breakfast & dinner, 8 units with lunch (6 units if coremaker bench lunch) If blood sugar is between 151-200, add 1 units. If blood sugar is between 201-250, add 2 units. If blood sugar is between 251-300, add 3 units. If blood sugar is between 301-350, add 4 units. DM eye exam 06/2023 at [facility]. Letter sent to get copy of report. UTD on labs. Discussed with José Luis Gamble: Strive for regular exercise (30min most days) [...] infection. Assessment & Plan (04/16/2023 8:47 PM INSIDE SALES REPRESENTATIVE): Chronic , improving overall hyperglycemia but now [...] TID +SSI; adjust PRN -F/u with OSH customer service operator Proteinuria 02/24/2023 Assessment & Plan (02/25/2023 7:46 [...] 11/04/2021 Assessment & Plan (07/12/2024 12:57 PM INSIDE SALES REPRESENTATIVE): Getting aranesp outpatient -Trend CBC -Transfuse PRN [...] 11/04/2021 Assessment & Plan (07/11/2024 9:30 PM INSIDE SALES REPRESENTATIVE): -Continue home amlodipine, hydralazine, coreg Assessment & Plan (05/13/2024 9:11 AM INSIDE SALES REPRESENTATIVE): Chronic, fairly controlled for pt age Continue amlodipine Managed by nephrology Assessment & Plan (11/16/2023 11:18 AM CDT): Chronic problem. Controlled on current Carvedilol 25mg bid, amlodipine 10mg daily, lasix 20mg daily. not taking hydralazine currently Assessment & Plan (07/25/2023 10:05 AM INSIDE SALES REPRESENTATIVE): Chronic problem. Controlled on current Carvedilol 25mg bid, amlodipine 10mg daily, lasix 20mg daily. 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 Resume on discharge. Nephrology made aware that it is vascular endothelial growth factor inhibitor and will need to be held 2 weeks before graft/fistula formation so they will need to coordinate with Oncology. Assessment & Plan (02/24/2023 3:35 PM CDT): F/b Dr. Taylor, with peritoneal mets. Sutent has been on hold since 12/08/2022 for possible contribution to worsening renal function -F/u with Oncology outpatient Dehydration 01/24/2019 Resolved Problems Problem Noted Date Diagnosed Date Resolved Date LÓPEZ (acute kidney injury) 02/24/2023 Viral infection 01/24/2019 11/15/2023 Immunizations Immunization Administration Dates Next Due Influenza, Trivalent, High D ose, Split, Preservative Free, Intramuscular 03/03/2022,03/09/2020,03/01/2019 Pfizer SARS-CoV-2 Monovalent Vaccination (12+ Yrs) PURPLE 07/15/2020,06/24/2020 Pfizer Sars-Cov-2 Bivalent V accination (12+ YRS) 02/17/2022 Pneumococcal Conjugate PCV 13 08/09/2018 Pneumococcal Polysaccharide PPV23 03/09/2020 Social History Tobacco Use Types Packs/Day Years Used Date Smoking Tobacco: Former Cigarettes 1.5 14 1 967 - 1980 Passive Smoke Exposure: Never Smokeless Tobacco: Never Tobacco Cessation:Counseling Given: Not Answered AUDIT-C Answer Date Recorded Q1: How often do you have a drink containing alcohol? Never 09/02/2024 Q2: How many drinks containi ng alcohol do you have on a typical day when you are drinking? Patient does not drink Q3: How often do you have si x or more drinks on one occasion? Never 09/02/2024 Personal Safety Answer Date Recorded Have you ever been in or are you currently in a harmful physical or emotional relationship or is someone making you feel afraid or unsafe? Denies 07/12/2024 Sex and Gender Information Value Date Recorded Sex Assigned at Not on file Legal Sex Male 6:14 AM INSIDE SALES REPRESENTATIVE Gender Identity Not on file Sexual Orientation Not on file Last Filed Vital Signs Vital Sign Reading Time Taken Comments Blood Pressure 159/71 08/14/2024 11:53 AM CDT Pulse 62 08/14/2024 11:53 AM CDT Temperature 36.8 C (98.2 F) 08/14/2024 11:53 AM CDT Respiratory Rate 16 08/14/2024 11:53 AM CDT Oxygen Saturation 96% 08/14/2024 11:53 AM CDT Inhaled Oxygen Concentration - - Weight 90.7 kg (200 lb) 09/02/2024 4:45 PM CDT Height 177.8 cm (5' 10 ) 09/02/2024 4:45 PM CDT Body Mass Index 28.7 09/02/2024 4:45 PM CDT Plan of Treatment Upcoming Encounters Date Type Department Care Team (Latest Contact Info) Description 09/20/2024 7:30 AM CDT Hospital Encounter [facility] Operating Room 1 [place] [address] Godfrey Villarreal MD [address] [facility] [address] [place] [address] 09/20/2024 7:30 AM CDT - 09/20/2024 10:40 AM CDT Surgery [facility] Operating Room [address] [place] [address] Godfrey Villarreal MD [address] [facility] [address] [place] [address] CREATION ARTERIOVENOUS FISTULA - ARM Scheduled Procedures Name Priority Associated Diagnoses Date/Ti me CREATION ARTERIOVENOUS FISTULA - ARM ESRD (end stage renal disease) on dialysis (HCC) 09/20/2024 7:30 AM CDT Medical Devices Implanted Type Area Sign Erector Device Identifier Shelf Expiration Date Model / Serial / Lot Stent- 8 Implanted:04/19 by [facility], Carol Esquivel MD (Quantity not on file) Stent Heart Description:1.5 or 3 Nazia N ormal Mode Scan 15 rest 5 In[employer] Duraflow Embosafe 15.5fr 28cm Basic 2 Lumen Kit Catheter [id number] - [id number] Implanted:Qty: 1 on 07/12/2024 at [facility] 08/02/2026 [id number] / / [id number] Procedures Procedure Name Priority Date/Time Associated Diagnosis Comments EGFR STAT 08/14/2024 11:18 AM CDT GIST (gastrointestinal stroma tumor), malignant, 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) DIFFERENTIAL AUTO STAT 08/14/2024 11: 18 AM CDT GIST (gastrointestinal stroma tumor), malignant, 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) CBC WITH AUTO DIFFERENTIAL STAT 08/14/2024 11:18 AM CDT GIST (gastrointestinal stroma tumor), malignant, 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) COMPREHENSIVE METABOLIC PANEL STAT 08/14/2024 11:18 AM CDT GIST (gastrointestinal stroma tumor), malignant, 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) LACTATE DEHYDROGENASE STAT 08/14/2024 11:18 AM CDT GIST (gastrointestinal stroma tumor), malignant, 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) US VEIN MAPPING FISTULA ACCESS, BILATERAL Schedule Routine, Read Routine (OP Routine) 08/12/2024 9:16 AM CDT ESRD (end stage renal disease) (HCC) SCAN - LABS 08/08/2024 POCT GLUCOSE DEVICE Routine 07/14/2024 1 1:06 AM INSIDE SALES REPRESENTATIVE POCT GLUCOSE DEVICE Routine 07/14/2024 7 :08 AM INSIDE SALES REPRESENTATIVE EGFR Routine 07/14/2024 2:11 AM INSIDE SALES REPRESENTATIVE DIFFERENTIAL AUTO Routine 07/14/2024 2:1 1 AM INSIDE SALES REPRESENTATIVE CBC WITH AUTO DIFFERENTIAL Routine 07/14/2024 2:11 AM INSIDE SALES REPRESENTATIVE COMPREHENSIVE METABOLIC PANEL Routine 07/14/2024 2:11 AM INSIDE SALES REPRESENTATIVE POCT GLUCOSE DEVICE Routine 07/13/2024 9 :08 PM INSIDE SALES REPRESENTATIVE POCT GLUCOSE DEVICE Routine 07/13/2024 5 :34 PM INSIDE SALES REPRESENTATIVE POCT GLUCOSE DEVICE Routine 07/13/2024 1 1:53 AM INSIDE SALES REPRESENTATIVE POCT GLUCOSE DEVICE Routine 07/13/2024 7 :10 AM INSIDE SALES REPRESENTATIVE EGFR Routine 07/13/2024 1:56 AM INSIDE SALES REPRESENTATIVE DIFFERENTIAL AUTO Routine 07/13/2024 1:5 6 AM INSIDE SALES REPRESENTATIVE CBC WITH AUTO DIFFERENTIAL Routine 07/13/2024 1:56 AM INSIDE SALES REPRESENTATIVE COMPREHENSIVE METABOLIC PANEL Routine 07/13/2024 1:56 AM INSIDE SALES REPRESENTATIVE HEMODIALYSIS Routine 07/12/2024 9:17 PM INSIDE SALES REPRESENTATIVE POCT GLUCOSE DEVICE Routine 07/12/2024 7 :26 PM INSIDE SALES REPRESENTATIVE POCT GLUCOSE DEVICE Routine 07/12/2024 5 :11 PM INSIDE SALES REPRESENTATIVE HEPATITIS B SURFACE ANTIGEN STAT 07/12/2024 4:33 PM INSIDE SALES REPRESENTATIVE POCT GLUCOSE DEVICE Routine 07/12/2024 1 2:23 PM INSIDE SALES REPRESENTATIVE TUNNELED LINE PLACEMENT > 5 YEARS IP Routine 07/12/2024 9:17 AM INSIDE SALES REPRESENTATIVE POCT GLUCOSE DEVICE Routine 07/12/2024 7 :15 AM INSIDE SALES REPRESENTATIVE POCT GLUCOSE DEVICE Routine 07/12/2024 4 :37 AM INSIDE SALES REPRESENTATIVE HEMODIALYSIS Routine 07/11/2024 9:26 PM INSIDE SALES REPRESENTATIVE HEMOGLOBIN A1C Timed 07/11/2024 9:14 PM INSIDE SALES REPRESENTATIVE IRON PROFILE W/ IBC Timed 07/11/2024 9 :14 PM INSIDE SALES REPRESENTATIVE EGFR Timed 07/11/2024 9:14 PM INSIDE SALES REPRESENTATIVE FERRITIN Timed 07/11/2024 9:14 PM INSIDE SALES REPRESENTATIVE DIFFERENTIAL AUTO Timed 07/11/2024 9:1 4 PM INSIDE SALES REPRESENTATIVE TYPE AND SCREEN STAT 07/11/2024 9:14 PM INSIDE SALES REPRESENTATIVE PHOSPHORUS Timed 07/11/2024 9:14 PM INSIDE SALES REPRESENTATIVE MAGNESIUM Timed 07/11/2024 9:14 PM INSIDE SALES REPRESENTATIVE COMPREHENSIVE METABOLIC PANEL Timed 07/11/2024 9:14 PM INSIDE SALES REPRESENTATIVE CBC WITH AUTO DIFFERENTIAL Timed 07/11/2024 9:14 PM INSIDE SALES REPRESENTATIVE POCT GLUCOSE DEVICE Routine 07/11/2024 7 :32 PM INSIDE SALES REPRESENTATIVE SCAN - LABS 07/11/2024 INFLUENZA A/B, RSV, AND COVID-19 PCR Routine 07/09/2024 11:52 AM INSIDE SALES REPRESENTATIVE Acute viral syndrome POC INFLUENZA A/B, COVID-19 ANTIGEN Routine 07/09/2024 11:34 AM INSIDE SALES REPRESENTATIVE Acute viral syndrome EGFR STAT 07/03/2024 12:19 PM INSIDE SALES REPRESENTATIVE GIST (gastrointestinal stroma tumor), malignant, 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) DIFFERENTIAL AUTO STAT 07/03/2024 12: 19 PM INSIDE SALES REPRESENTATIVE GIST (gastrointestinal stroma tumor), malignant, 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) CBC WITH AUTO DIFFERENTIAL STAT 07/03/2024 12:19 PM INSIDE SALES REPRESENTATIVE GIST (gastrointestinal stroma tumor), malignant, 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) COMPREHENSIVE METABOLIC PANEL STAT 07/03/2024 12:19 PM INSIDE SALES REPRESENTATIVE GIST (gastrointestinal stroma tumor), malignant, 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) LACTATE DEHYDROGENASE STAT 07/03/2024 12:19 PM INSIDE SALES REPRESENTATIVE GIST (gastrointestinal stroma tumor), malignant, 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) PET/CT FDG SKULL TO THIGH Schedule Routine, Read Routine (OP Routine) 06/27/2024 9:08 AM INSIDE SALES REPRESENTATIVE GIST (gastrointestinal stroma tumor), malignant, 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) LIPID PANEL Routine 05/13/2024 9:16 AM INSIDE SALES REPRESENTATIVE Type 2 diabetes mellitus with stage 4 chronic kidney disease, with long-term current use of insulin (HCC) Hyperlipidemia associated with type 2 diabetes mellitus (HCC) ALBUMIN CREATININE RATIO, URINE Routine 05/13/2024 9:16 AM INSIDE SALES REPRESENTATIVE Type 2 diabetes mellitus with stage 4 chronic kidney disease, with long-term current use of insulin (HCC) Hypertension associated with diabetes (HCC) CT ABDOMEN PELVIS WO CONTRAST Schedule CAROLYN, Read CAROLYN (Appt Today, Awaiting Results) 12/14/2023 12:26 PM CDT GIST (gastrointestinal stroma tumor), malignant, 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 73 m2 Comment: Interpretive Data Reference Interval Normal >/= 90 mL/min/1.73m2 Mildly decreased* 60 - 89 mL/min/1.73m2 Mildly to moderately decreased 45 - 59 mL/min/1.73m2 Moderately to severely decreased 30 - 44 mL/min/1.73m2 Severely decreased 15 - 29 mL/min/1.73m2 Kidney Failure < 15 mL/min/1.73m2 *Relative to young adult level Estimated glomerular filtration rate is determined by the 2020 CKD-EPI equation recommended by the National Kidney Foundation (A Unifying Approach to GFR Estimation: Recommendations of the NKF-ASK Task Force on Reassessing the Inclusion of Race in Diagnosing Kidney Disease, JASN 2020). The CKD-EPI equation should not be used for patients with unstable renal function and has not been validated in children and those over 70. Current interpretive data was last reviewed 2021. Blood 08/14/2024 11:1 8 AM CDT 08/14/2024 11:18 AM CDT us Marcella Taylor MD LAB BLOOD ORDERABLES Final Resul t [facility] [place] [address] * (ABNORMAL) Differential, auto (08/14/2024 11:18 AM CDT) Neutrophil abs 7.7(H) 1.5 - 6.5 K/cumm Comment:Testing performed by : [facility], [address] [place] [id number] Imm gran abs 0.1 0.0 - 0.1 K/cumm [facility] Lymphocyte abs 2.0 0.8 - 3.3 K/cumm [facility] Monocyte abs 0.8 0.2 - 0.8 K/cumm [facility] Eosinophil abs 0.4 0.0 - 0.5 K/cumm [facility] Basophil abs 0.1 0.0 - 0.1 K/cumm [facility] Neutrophil pct 69.7 % [facility] Comment: Interpretive Data Percent cell count reference ranges are not reported, since discordance with absolute values may lead to misinterpretation of CBC data. Current Interpretive Data was last revised on 2017. Imm gran pct 0.5 % [facility] Comment: Interpretive Data Percent cell count reference ranges are not reported, since discordance with absolute values may lead to misinterpretation of CBC data. Current Interpretive Data was last revised on 2017. Lymphocyte pct 17.9 % [facility] Comment: Interpretive Data Percent cell count reference ranges are not reported, since discordance with absolute values may lead to misinterpretation of CBC data. Current Interpretive Data was last revised on 2017. Monocyte pct 7.6 % [facility] Comment: Interpretive Data Percent cell count reference ranges are not reported, since discordance with absolute values may lead to misinterpretation of CBC data. Current Interpretive Data was last revised on 2017. Eosinophil pct 3.6 % [facility] Comment: Interpretive Data Percent cell count reference ranges are not reported, since discordance with absolute values may lead to misinterpretation of CBC data. Current Interpretive Data was last revised on 2017. Basophil pct 0.7 % [facility] Comment: Interpretive Data Percent cell count reference ranges are not reported, since discordance with absolute values may lead to misinterpretation of CBC data. Current Interpretive Data was last revised on 2017. Blood 08/14/2024 11:1 8 AM CDT 08/14/2024 11:18 AM CDT us Marcella Taylor MD LAB BLOOD ORDERABLES Final Resul t [facility] [place] [address] * (ABNORMAL) CBC with auto differential (08/14/2024 11:18 AM CDT) WBC 11.0(H) 3.8 - 9.9 K/cumm Comment:Testing performed by : [address] [address] Hgb 10.3(L) 13.0 - 17.5 g/dL [facility] Comment:Testing performed by : [address] [address] Hct 32.1(L) 38.9 - 50.3 % [facility] Comment:Testing performed by : [address] [address] Plt 187 150 - 400 K/cumm [facility] Comment:Testing performed by : [facility], [address] [place] [id number] MPV 9.6 9.1 - 12.3 fL [facility] RBC 3.88(L) 4.30 - 5.80 M/cumm [facility] MCV 82.7 81.3 - 96.4 fL [facility] MCH 26.5(L) 27.1 - 33.3 pg [facility] MCHC 32.1(L) 32.3 - 35.7 g/dL [facility] RDW CV 17.1(H) 11.1 - 14.9 % [facility] RDW SD 51.6(H) 35.7 - 48.1 fL [facility] NRBC abs 0.00 0.00 - 0.01 K/cumm [facility] Blood 08/14/2024 11:1 8 AM CDT 08/14/2024 11:18 AM CDT Marcella Taylor MD LAB BLOOD ORDERABLES Final Resul t Performing Organization Address City/[facility] Co de Phone Number [facility] [place] [address] * (ABNORMAL) Lactate dehydrogenase (LD) (08/14/2024 11:18 AM CDT) Pathologist [facility] Lactate dehydrogenase (LDH) 343(H) 100 - 250 Units/L Comment:Testing performed by : [facility], [address] [place] [id number] Blood 08/14/2024 11:1 8 AM CDT 08/14/2024 11:18 AM CDT us Marcella Taylor MD LAB BLOOD ORDERABLES Final Resul t Performing Organization Address City/State/[facility] Co de Phone Number [facility] Department [place] [address] * (ABNORMAL) Comprehensive metabolic panel (08/14/2024 11:18 AM CDT) Sodium 142 135 - 145 mmol/L Comment:Testing performed by : [facility], [address] [facility] [address] Potassium, pl 4.7 3.3 - 4.9 mmol/L [facility] Chloride 107 97 - 110 mmol/L [facility] CO2 27 22 - 32 mmol/L [facility] Anion gap 8 2 - 15 mmol/L [facility] BUN 41(H) 6 - 25 mg/dL [facility] Creatinine 5.63(H) 0.80 - 1.30 mg/dL [facility] Glucose 170 70 - 199 mg/dL [facility] Comment: Interpretive Data Fasting glucose >/= 126 mg/dl is diagnostic for diabetes. Fasting is defined as no caloric intake for at least 8 hours. Fasting glucose between 100 mg/dl to 125 mg/dl is diagnostic of prediabetes. In a patient with classic symptoms of hyperglycemia or hyperglycemic crisis, a random glucose >/= 200 mg/dl is diagnostic for diabetes. In the absence of unequivocal hyperglycemia, results should be confirmed by repeat testing. The classification and Diagnosis of Diabetes Diabetes Care 202; 46: S19-S40. Current interpretive data was last revised 2022. Calcium 8.0(L) 8.5 - 10.3 mg/dL [facility] Bilirubin, total 0.5 0.1 - 1.2 mg/dL [facility] Protein, pl 6.5 6.5 - 8.5 g/dL [facility] Albumin 3.6 3.5 - 5.0 g/dL [facility] Alk phos 83 40 - 130 Units/L [facility] ALT 11 7 - 55 Units/L [facility] AST 22 10 - 50 Units/L [facility] Blood 08/14/2024 11:1 8 AM CDT 08/14/2024 11:18 AM CDT us Marcella Taylor MD LAB BLOOD ORDERABLES Final Resul t [facility] [place] [address] * US Vein Mapping Fistula Access, Bilateral (08/12/2024 9:16 AM CDT) Anatomical Region Laterality Modality Vascular Bilateral Ultrasound 08/12/2024 7:00 AM CDT Narrative 08/12/2024 12:47 PM CDT [facility] - Department of Vascular Surgery, Vascular Laboratory [address] [place] [id number] Upper Extremity Vein Mapping Report Patient Name: JOSÉ LUIS GAMBLE : 1945 (78y 10m) Study Date: 08/12/2024 7:00:58 AM Gender: M Staffing Executive: GONZALO Location: [facility] Provider: GODFREY VILLARREAL Quality: Adequate Order Provider: GODFREY VILLARREAL PROCEDURES: Mapping Report: Bilateral Upper Extremity Vein Mapping. INDICATIONS: N18.6 End stage renal disease. MEASUREMENTS: Right Value Units Left Value Units Rt Axillary Vein Diameter 0.90 cm Lt Axillary Vein Diameter 1.07 cm Rt Prox Brachial Vein D. 1 0.65/0.17 cm Lt Prox Brachial Vein D. 1 0.58/0.37 cm Rt Prox Brachial Vein D. 2 0.40/0.10 cm Lt Prox Brachial Vein D. 2 0.47/0.20 cm Rt Mid Brachial Vein D. 1 0.28/0.21 cm Lt Mid Brachial Vein D. 1 0.33/0.23 cm Rt Mid Brachial Vein D. 2 0.18/0.12 cm Lt Mid Brachial Vein D. 2 0.27/0.13 cm Rt Dist Brachial Vein D. 1 0.22/0.23 cm Lt Dist Brachial Vein D. 1 00.19/0.30 cm Rt Dist Brachial Vein D. 2 0.10/0.14 cm Lt Dist Brachial Vein D. 2 0.12/0.41 cm Rt Cephalic Vein Zone 1 0.31 cm Lt Cephalic Vein Zone 1 0.31 cm Rt Cephalic Vein Zone 2 0.27 cm Lt Cephalic Vein Zone 2 0.32 cm Rt Cephalic Vein Zone 3 0.26 cm Lt Cephalic Vein Zone 3 0.23 cm Rt Cephalic Vein Zone 4 0.29 cm Lt Cephalic Vein Zone 4 0.42 cm Rt Cephalic Vein Zone 5 0.24 cm Lt Cephalic Vein Zone 5 0.27 cm Rt Cephalic Vein Zone 6 0.25 cm Lt Cephalic Vein Zone 6 0.21 cm Rt Cephalic Vein Zone 7 0.26 cm Lt Cephalic Vein Zone 7 0.29 cm Rt Basilic Vein Zone 1 0.37 cm Lt Basilic Vein Zone 1 low cm Rt Basilic Vein Zone 2 0.37 cm Lt Basilic Vein Zone 2 bifurcation cm Rt Basilic Vein Zone 3 0.41 cm Lt Basilic Vein Zone 3 0.17 cm Rt Basilic Vein Zone 4 0.37 cm Lt Basilic Vein Zone 4 0.23 cm Rt Basilic Vein Zone 5 0.15 cm Lt Basilic Vein Zone 5 0.20 cm Rt Basilic Vein Zone 6 0.15 cm Lt Basilic Vein Zone 6 0.17 cm Rt Basilic Vein Zone 7 0.15 cm Lt Basilic Vein Zone 7 0.15 cm Right Value Units Left Value Units FINDINGS: Performing Staffing Executive: Jayda Dunn RVT. Bilateral: Venous Doppler signals in the bilateral upper extremities are within normal limits for spontaneity and phasicity; normal response to compression maneuvers. Duplex imaging of bilateral cephalic and basilic veins reveals the cross-sectional measurements noted above. No evidence of superficial vein thrombus. CONCLUSIONS: 1. Duplex imaging of bilateral cephalic and basilic veins reveals the cross- sectional measurements noted above. No evidence of superficial vein thrombus. 2. No evidence of acute deep vein thrombosis bilaterally in the upper extremities. HISTORY: Chronic kidney disease. PREVIOUS STUDIES: No previous studies for comparison. DISCLAIMER: Zone 1 = proximal arm; Zone 2 = mid arm; Zone 3 = distal arm; Zone 4 = ante- cubital; Zone 5 = proximal forearm; Zone 6 = mid forearm; Zone 7 = distal forearm. All measurements are obtained with a tourniquet placed on the upper arm unless it is contraindicated and noted in the report. The study images and the final report will be retained in the patient chart by the Vascular Laboratory for the legally required time period. This chart constitutes the legal record of any testing performed. ATTESTATION: I have reviewed and interpreted the pertinent images and measurements of this study. I attest to the conclusions in the final report that is provided above. Electronically Signed By: Josias Cox MD [facility] [phone] 08/12/2024 12:46:53 PM CDT Procedure Note Josias Cox MD - 08/12/2024 [facility] - Department of Vascular Surgery,Vascular Laboratory [address] [place] [address] Upper Extremity Vein Mapping Report Patient Name: JOSÉ LUIS GAMBLE : 1945 (78y 10m) Study Date: 08/12/2024 7:00:58 AM Gender: M Staffing Executive: GONZALO Location: [facility] Provider: GODFREY VILLARREAL Quality: Adequate Order Provider: GODFREY VILLARREAL PROCEDURES: Mapping Report: Bilateral Upper Extremity Vein Mapping. INDICATIONS: N18.6 End stage renal disease. MEASUREMENTS: Right Value Units Left Value Units Rt Axillary Vein Diameter 0.90 cm Lt Axillary Vein Diameter 1.07 cm Rt Prox Brachial Vein D. 1 0.65/0.17 cm Lt Prox Brachial Vein D. 10.58/0.37 cm Rt Prox Brachial Vein D. 2 0.40/0.10 cm Lt Prox Brachial Vein D. 20.47/0.20 cm Rt Mid Brachial Vein D. 1 0.28/0.21 cm Lt Mid Brachial Vein D. 1 0.33/0.23cm Rt Mid Brachial Vein D. 2 0.18/0.12 cm Lt Mid Brachial Vein D. 2 0.27/0.13cm Rt Dist Brachial Vein D. 1 0.22/0.23 cm Lt Dist Brachial Vein D. 100.19/0.30 cm Rt Dist Brachial Vein D. 2 0.10/0.14 cm Lt Dist Brachial Vein D. 20.12/0.41 cm Rt Cephalic Vein Zone 1 0.31 cm Lt Cephalic Vein Zone 1 0.31 cm Rt Cephalic Vein Zone 2 0.27 cm Lt Cephalic Vein Zone 2 0.32 cm Rt Cephalic Vein Zone 3 0.26 cm Lt Cephalic Vein Zone 3 0.23 cm Rt Cephalic Vein Zone 4 0.29 cm Lt Cephalic Vein Zone 4 0.42 cm Rt Cephalic Vein Zone 5 0.24 cm Lt Cephalic Vein Zone 5 0.27 cm Rt Cephalic Vein Zone 6 0.25 cm Lt Cephalic Vein Zone 6 0.21 cm Rt Cephalic Vein Zone 7 0.26 cm Lt Cephalic Vein Zone 7 0.29 cm Rt Basilic Vein Zone 1 0.37 cm Lt Basilic Vein Zone 1 low cm Rt Basilic Vein Zone 2 0.37 cm Lt Basilic Vein Zone 2 bifurcation cm Rt Basilic Vein Zone 3 0.41 cm Lt Basilic Vein Zone 3 0.17 cm Rt Basilic Vein Zone 4 0.37 cm Lt Basilic Vein Zone 4 0.23 cm Rt Basilic Vein Zone 5 0.15 cm Lt Basilic Vein Zone 5 0.20 cm Rt Basilic Vein Zone 6 0.15 cm Lt Basilic Vein Zone 6 0.17 cm Rt Basilic Vein Zone 7 0.15 cm Lt Basilic Vein Zone 7 0.15 cm Right Value Units Left Value Units FINDINGS: Performing Staffing Executive: Jayda Dunn, RVT. Bilateral: Venous Doppler signals in the bilateral upper extremities arewithin normal limits for spontaneity and phasicity; normal response to compressionmaneuvers. Duplex imaging of bilateral cephalic and basilic veins reveals thecross-sectional measurements noted above. No evidence of superficial vein thrombus. CONCLUSIONS: 1. Duplex imaging of bilateral cephalic and basilic veins reveals thecross- sectional measurements noted above. No evidence of superficial vein thrombus. 2. No evidence of acute deep vein thrombosis bilaterally in the upperextremities. HISTORY: Chronic kidney disease. PREVIOUS STUDIES: No previous studies for comparison. DISCLAIMER: Zone 1 = proximal arm; Zone 2 = mid arm; Zone 3 = distal arm; Zone 4 =ante- cubital; Zone 5 = proximal forearm; Zone 6 = mid forearm; Zone 7 = distal forearm. All measurements are obtained with a tourniquet placed on the upper armunless it is contraindicated and noted in the report. The study images and the final report will be retained in the patientchart by the Vascular Laboratory for the legally required time period. This chartconstitutes the legal record of any testing performed. ATTESTATION: I have reviewed and interpreted the pertinent images and measurements ofthis study. I attest to the conclusions in the final report that is provided above. Electronically Signed By: Josias Cox MD [facility] [phone] 08/12/2024 12:46:53 PM CDT us Godfrey Villarreal MD IMG US PROCEDURES Final R esult * SCAN - LABS (08/08/2024) us Provider Scanning Final Result * (ABNORMAL) POCT glucose (07/14/2024 11:06 AM INSIDE SALES REPRESENTATIVE) Glucose, POC 215(H) 70 - 199 mg/dL Blood 07/14/2024 11:0 6 AM INSIDE SALES REPRESENTATIVE 07/14/2024 11:06 AM INSIDE SALES REPRESENTATIVE us Rex Reid MD LAB POCT ORDERABLES - DEVICE Fin al Result Performing Organization Address City/[facility] Co de Phone Number [facility] [place] [address] * POCT glucose (07/14/2024 7:08 AM INSIDE SALES REPRESENTATIVE) Glucose, POC 151 70 - 199 mg/dL Blood 07/14/2024 7:08 AM INSIDE SALES REPRESENTATIVE 07/14/2024 7:08 AM INSIDE SALES REPRESENTATIVE us Rex Reid MD LAB POCT ORDERABLES - DEVICE Fin al Result Performing Organization Address [facility] de Phone Number [facility] [place] [address] * (ABNORMAL) eGFR (07/14/2024 2:11 AM INSIDE SALES REPRESENTATIVE) [facility] eGFR 11(L) >=60 mL/min/1. 73 m2 Comment: Interpretive Data Reference Interval Normal >/= 90 mL/min/1.73m2 Mildly decreased* 60 - 89 mL/min/1.73m2 Mildly to moderately decreased 45 - 59 mL/min/1.73m2 Moderately to severely decreased 30 - 44 mL/min/1.73m2 Severely decreased 15 - 29 mL/min/1.73m2 Kidney Failure < 15 mL/min/1.73m2 *Relative to young adult level Estimated glomerular filtration rate is determined by the 2020 CKD-EPI equation recommended by the National Kidney Foundation (A Unifying Approach to GFR Estimation: Recommendations of the NKF-ASK Task Force on Reassessing the Inclusion of Race in Diagnosing Kidney Disease, JASN 2020). The CKD-EPI equation should not be used for patients with unstable renal function and has not been validated in children and those over 70. Current interpretive data was last reviewed 2021. Blood 07/14/2024 2:11 AM INSIDE SALES REPRESENTATIVE 07/14/2024 4:35 AM INSIDE SALES REPRESENTATIVE us Coco Batres MD LAB BLOOD ORDERABLES Final Re sult [facility] [place] [address] * Differential, auto (07/14/2024 2:11 AM INSIDE SALES REPRESENTATIVE) Neutrophil abs 5.3 1.5 - 6.5 K/cumm Imm gran abs 0.1 0.0 - 0.1 K/cumm [facility] Lymphocyte abs 2.0 0.8 - 3.3 K/cumm [facility] Monocyte abs 0.8 0.2 - 0.8 K/cumm [facility] Eosinophil abs 0.4 0.0 - 0.5 K/cumm [facility] Basophil abs 0.1 0.0 - 0.1 K/cumm [facility] Neutrophil pct 61.0 % [facility] Comment: Interpretive Data Percent cell count reference ranges are not reported, since discordance with absolute values may lead to misinterpretation of CBC data. Current Interpretive Data was last revised on 2017. Imm gran pct 0.9 % [facility] Comment: Interpretive Data Percent cell count reference ranges are not reported, since discordance with absolute values may lead to misinterpretation of CBC data. Current Interpretive Data was last revised on 2017. Lymphocyte pct 22.8 % [facility] Comment: Interpretive Data Percent cell count reference ranges are not reported, since discordance with absolute values may lead to misinterpretation of CBC data. Current Interpretive Data was last revised on 2017. Monocyte pct 9.6 % [facility] Comment: Interpretive Data Percent cell count reference ranges are not reported, since discordance with absolute values may lead to misinterpretation of CBC data. Current Interpretive Data was last revised on 2017. Eosinophil pct 5.0 % [facility] Comment: Interpretive Data Percent cell count reference ranges are not reported, since discordance with absolute values may lead to misinterpretation of CBC data. Current Interpretive Data was last revised on 2017. Basophil pct 0.7 % [facility] Comment: Interpretive Data Percent cell count reference ranges are not reported, since discordance with absolute values may lead to misinterpretation of CBC data. Current Interpretive Data was last revised on 2017. Blood 07/14/2024 2:11 AM INSIDE SALES REPRESENTATIVE 07/14/2024 4:35 AM INSIDE SALES REPRESENTATIVE Coco Batres MD LAB BLOOD ORDERABLES Final Re sult [facility] [place] [address] * (ABNORMAL) CBC with auto differential (07/14/2024 2:11 AM INSIDE SALES REPRESENTATIVE) WBC 8.7 3.8 - 9.9 K/cumm Hgb 9.3(L) 13.0 - 17.5 g/dL [facility] Hct 30.1(L) 38.9 - 50.3 % [facility] Plt 184 150 - 400 K/cumm [facility] MPV 10.6 9.1 - 12.3 fL [facility] RBC 3.66(L) 4.30 - 5.80 M/cumm [facility] MCV 82.2 81.3 - 96.4 fL [facility] MCH 25.4(L) 27.1 - 33.3 pg [facility] MCHC 30.9(L) 32.3 - 35.7 g/dL [facility] RDW CV 16.7(H) 11.1 - 14.9 % [facility] RDW SD 49.9(H) 35.7 - 48.1 fL [facility] NRBC abs 0.00 0.00 - 0.01 K/cumm [facility] Blood 07/14/2024 2:11 AM INSIDE SALES REPRESENTATIVE 07/14/2024 4:35 AM INSIDE SALES REPRESENTATIVE Coco Batres MD LAB BLOOD ORDERABLES Final Re sult [facility] [place] [address] * (ABNORMAL) Comprehensive metabolic panel (07/14/2024 2:11 AM INSIDE SALES REPRESENTATIVE) Sodium 139 135 - 145 mmol/L Potassium, pl 3.9 3.3 - 4.9 mmol/L [facility] Chloride 104 97 - 110 mmol/L [facility] CO2 24 22 - 32 mmol/L [facility] Anion gap 11 2 - 15 mmol/L [facility] BUN 36(H) 6 - 25 mg/dL [facility] Creatinine 4.95(H) 0.80 - 1.30 mg/dL [facility] Glucose 150 70 - 199 mg/dL [facility] Comment: Interpretive Data Fasting glucose >/= 126 mg/dl is diagnostic for diabetes. Fasting is defined as no caloric intake for at least 8 hours. Fasting glucose between 100 mg/dl to 125 mg/dl is diagnostic of prediabetes. In a patient with classic symptoms of hyperglycemia or hyperglycemic crisis, a random glucose >/= 200 mg/dl is diagnostic for diabetes. In the absence of unequivocal hyperglycemia, results should be confirmed by repeat testing. The classification and Diagnosis of Diabetes Diabetes Care 202; 46: S19-S40. Current interpretive data was last revised 2022. Calcium 7.3(L) 8.5 - 10.3 mg/dL [facility] Bilirubin, total 0.7 0.1 - 1.2 mg/dL [facility] Protein, pl 5.6(L) 6.5 - 8.5 g/dL [facility] Albumin 2.9(L) 3.5 - 5.0 g/dL [facility] Alk phos 76 40 - 130 Units/L [facility] ALT 9 7 - 55 Units/L [facility] AST 24 10 - 50 Units/L [facility] Blood 07/14/2024 2:11 AM INSIDE SALES REPRESENTATIVE 07/14/2024 4:35 AM INSIDE SALES REPRESENTATIVE Coco Batres MD LAB BLOOD ORDERABLES Final Re sult Performing Organization Address [facility] Co de Phone Number [facility] [place] [address] * (ABNORMAL) POCT glucose (07/13/2024 9:08 PM INSIDE SALES REPRESENTATIVE) Glucose, POC 256(H) 70 - 199 mg/dL Blood 07/13/2024 9:08 PM INSIDE SALES REPRESENTATIVE 07/13/2024 9:08 PM INSIDE SALES REPRESENTATIVE us Rex Reid MD LAB POCT ORDERABLES - DEVICE Fin al Result Performing Organization Address [facility] Co de Phone Number [facility] [place] [address] * POCT glucose (07/13/2024 5:34 PM INSIDE SALES REPRESENTATIVE) Glucose, POC 119 70 - 199 mg/dL Blood 07/13/2024 5:34 PM INSIDE SALES REPRESENTATIVE 07/13/2024 5:34 PM INSIDE SALES REPRESENTATIVE us Rex Reid MD LAB POCT ORDERABLES - DEVICE Fin al Result Performing Organization Address [facility] Co de Phone Number [facility] [place] [address] * (ABNORMAL) POCT glucose (07/13/2024 11:53 AM INSIDE SALES REPRESENTATIVE) Glucose, POC 242(H) 70 - 199 mg/dL Blood 07/13/2024 11:5 3 AM INSIDE SALES REPRESENTATIVE 07/13/2024 11:53 AM INSIDE SALES REPRESENTATIVE us Rex Reid MD LAB POCT ORDERABLES - DEVICE Fin al Result Performing Organization Address [facility] Co de Phone Number [facility] [place] [address] * POCT glucose (07/13/2024 7:10 AM INSIDE SALES REPRESENTATIVE) [facility] Glucose, POC 163 70 - 199 mg/dL Blood 07/13/2024 7:10 AM INSIDE SALES REPRESENTATIVE 07/13/2024 7:10 AM INSIDE SALES REPRESENTATIVE us Rex Reid MD LAB POCT ORDERABLES - DEVICE Fin al Result Performing Organization Address [facility]/ZIP Co de Phone Number [facility] [place] [address] * (ABNORMAL) eGFR (07/13/2024 1:56 AM INSIDE SALES REPRESENTATIVE) [facility] eGFR 8(L) >=60 mL/min/1. 73 m2 Comment: Interpretive Data Reference Interval Normal >/= 90 mL/min/1.73m2 Mildly decreased* 60 - 89 mL/min/1.73m2 Mildly to moderately decreased 45 - 59 mL/min/1.73m2 Moderately to severely decreased 30 - 44 mL/min/1.73m2 Severely decreased 15 - 29 mL/min/1.73m2 Kidney Failure < 15 mL/min/1.73m2 *Relative to young adult level Estimated glomerular filtration rate is determined by the 2020 CKD-EPI equation recommended by the National Kidney Foundation (A Unifying Approach to GFR Estimation: Recommendations of the NKF-ASK Task Force on Reassessing the Inclusion of Race in Diagnosing Kidney Disease, JASN 2020). The CKD-EPI equation should not be used for patients with unstable renal function and has not been validated in children and those over 70. Current interpretive data was last reviewed 2021. Blood 07/13/2024 1:56 AM INSIDE SALES REPRESENTATIVE 07/13/2024 2:12 AM INSIDE SALES REPRESENTATIVE us Coco Batres MD LAB BLOOD ORDERABLES Final Re sult Performing Organization Address [facility]/ZIP Co de Phone Number [facility] [place] [address] * Differential, auto (07/13/2024 1:56 AM INSIDE SALES REPRESENTATIVE) Neutrophil abs 6.2 1.5 - 6.5 K/cumm Imm gran abs 0.1 0.0 - 0.1 K/cumm [facility] Lymphocyte abs 2.0 0.8 - 3.3 K/cumm [facility] Monocyte abs 0.8 0.2 - 0.8 K/cumm [facility] Eosinophil abs 0.4 0.0 - 0.5 K/[facility]umm [facility] Basophil abs 0.1 0.0 - 0.1 K/cumm [facility] Neutrophil pct 65.9 % [facility] Comment: Interpretive Data Percent cell count reference ranges are not reported, since discordance with absolute values may lead to misinterpretation of CBC data. Current Interpretive Data was last revised on 2017. Imm gran pct 0.5 % [facility] Comment: Interpretive Data Percent cell count reference ranges are not reported, since discordance with absolute values may lead to misinterpretation of CBC data. Current Interpretive Data was last revised on 2017. Lymphocyte pct 20.6 % [facility] Comment: Interpretive Data Percent cell count reference ranges are not reported, since discordance with absolute values may lead to misinterpretation of CBC data. Current Interpretive Data was last revised on 2017. Monocyte pct 8.4 % [facility] Comment: Interpretive Data Percent cell count reference ranges are not reported, since discordance with absolute values may lead to misinterpretation of CBC data. Current Interpretive Data was last revised on 2017. Eosinophil pct 4.0 % [facility] Comment: Interpretive Data Percent cell count reference ranges are not reported, since discordance with absolute values may lead to misinterpretation of CBC data. Current Interpretive Data was last revised on 2017. Basophil pct 0.6 % [facility] Comment: Interpretive Data Percent cell count reference ranges are not reported, since discordance with absolute values may lead to misinterpretation of CBC data. Current Interpretive Data was last revised on 2017. Blood 07/13/2024 1:56 AM INSIDE SALES REPRESENTATIVE 07/13/2024 2:12 AM INSIDE SALES REPRESENTATIVE Coco Batres MD LAB BLOOD ORDERABLES Final Re sult [facility] [place] [address] * (ABNORMAL) CBC with auto differential (07/13/2024 1:56 AM INSIDE SALES REPRESENTATIVE) [facility] WBC 9.5 3.8 - 9.9 K/cumm Hgb 9.1(L) 13.0 - 17.5 g/dL [facility] Hct 28.6(L) 38.9 - 50.3 % [facility] Plt 197 150 - 400 K/cumm [facility] MPV 9.9 9.1 - 12.3 fL [facility] RBC 3.48(L) 4.30 - 5.80 M/cumm [facility] MCV 82.2 81.3 - 96.4 fL [facility] MCH 26.1(L) 27.1 - 33.3 pg [facility] MCHC 31.8(L) 32.3 - 35.7 g/dL [facility] RDW CV 16.8(H) 11.1 - 14.9 % [facility] RDW SD 49.9(H) 35.7 - 48.1 fL [facility] NRBC abs 0.00 0.00 - 0.01 K/cumm [facility] Blood 07/13/2024 1:56 AM INSIDE SALES REPRESENTATIVE 07/13/2024 2:12 AM INSIDE SALES REPRESENTATIVE Coco Batres MD LAB BLOOD ORDERABLES Final Re sult Performing Organization Address [facility] Co de Phone Number [facility] [place] [address] * (ABNORMAL) Comprehensive metabolic panel (07/13/2024 1:56 AM INSIDE SALES REPRESENTATIVE) [facility] Sodium 141 135 - 145 mmol/L Potassium, pl 4.2 3.3 - 4.9 mmol/L [facility] Chloride 105 97 - 110 mmol/L [facility] CO2 25 22 - 32 mmol/L [facility] Anion gap 11 2 - 15 mmol/L [facility] BUN 54(H) 6 - 25 mg/dL [facility] Creatinine 6.35(H) 0.80 - 1.30 mg/dL [facility] Glucose 128 70 - 199 mg/dL [facility] Comment: Interpretive Data Fasting glucose >/= 126 mg/dl is diagnostic for diabetes. Fasting is defined as no caloric intake for at least 8 hours. Fasting glucose between 100 mg/dl to 125 mg/dl is diagnostic of prediabetes. In a patient with classic symptoms of hyperglycemia or hyperglycemic crisis, a random glucose >/= 200 mg/dl is diagnostic for diabetes. In the absence of unequivocal hyperglycemia, results should be confirmed by repeat testing. The classification and Diagnosis of Diabetes Diabetes Care 2021; 46: S19-S40. Current interpretive data was last revised 2022. Calcium 7.2(L) 8.5 - 10.3 mg/dL [facility] Bilirubin, total 0.7 0.1 - 1.2 mg/dL [facility] Protein, pl 5.7(L) 6.5 - 8.5 g/dL [facility] Albumin 3.0(L) 3.5 - 5.0 g/dL [facility] Alk phos 72 40 - 130 Units/L [facility] ALT 11 7 - 55 Units/L [facility] AST 37 10 - 50 Units/L [facility] Blood 07/13/2024 1:56 AM INSIDE SALES REPRESENTATIVE 07/13/2024 2:12 AM INSIDE SALES REPRESENTATIVE us Coco Batres MD LAB BLOOD ORDERABLES Final Re sult [facility] [place] [address] * (ABNORMAL) POCT glucose (07/12/2024 7:26 PM INSIDE SALES REPRESENTATIVE) [facility] Glucose, POC 203(H) 70 - 199 mg/dL Blood 07/12/2024 7:26 PM INSIDE SALES REPRESENTATIVE 07/12/2024 7:26 PM INSIDE SALES REPRESENTATIVE us Rex Reid MD LAB POCT ORDERABLES - DEVICE Fin al Result Performing Organization Address [facility] Co de Phone Number [facility] [place] [address] * POCT glucose (07/12/2024 5:11 PM INSIDE SALES REPRESENTATIVE) Glucose, POC 163 70 - 199 mg/dL Blood 07/12/2024 5:11 PM INSIDE SALES REPRESENTATIVE 07/12/2024 5:11 PM INSIDE SALES REPRESENTATIVE us Rex Reid MD LAB POCT ORDERABLES - DEVICE Fin al Result Performing Organization Address [facility] Co de Phone Number [facility] [place] [address] * Hepatitis B Surface Antigen Blood (07/12/2024 4:33 PM INSIDE SALES REPRESENTATIVE) [facility] HepBsAg Nonreactive Nonreactive Blood 07/12/2024 4:33 PM INSIDE SALES REPRESENTATIVE 07/12/2024 5:34 PM INSIDE SALES REPRESENTATIVE us Kavitha Logan MD LAB MICROBIOLOGY - GENERAL ORDERABLES Final Result Performing Organization Address [facility] Co de Phone Number [facility] [place] [address] * (ABNORMAL) POCT glucose (07/12/2024 12:23 PM INSIDE SALES REPRESENTATIVE) Glucose, POC 286(H) 70 - 199 mg/dL Blood 07/12/2024 12:2 3 PM INSIDE SALES REPRESENTATIVE 07/12/2024 12:23 PM INSIDE SALES REPRESENTATIVE us Rex Reid MD LAB POCT ORDERABLES - DEVICE Fin al Result Performing Organization Address [facility] Co de Phone Number [facility] [place] [address] * IR Tunneled Line Placement > 5 Years (07/12/2024 9:17 AM INSIDE SALES REPRESENTATIVE) Anatomical Region Laterality Modality Body N/A Radio Fluoroscop y 07/12/2024 9:45 AM INSIDE SALES REPRESENTATIVE Impressions 07/12/2024 9:45 AM INSIDE SALES REPRESENTATIVE Successful tunneled 19 cm tip to cuff Duraflow catheter catheter placement via the right internal jugular vein. PLAN: The catheter is ready for immediate use. When treatment is completed, removal can be scheduled by calling [facility] - [phone] [facility] - [phone] Electronically signed by: Shamika Chambers PA-C Narrative 07/12/2024 9:45 AM INSIDE SALES REPRESENTATIVE EXAMINATION: TUNNELED CENTRAL VENOUS CATHETER PLACEMENT USING ULTRASOUND GUIDANCE HISTORY/INDICATION: 78-year-old male with history of chronic kidney disease stage V who was directly admitted by nephrology for initiation of dialysis. Interventional radiology has been consulted for placement of a tunneled hemodialysis catheter placement. 07/11 creatinine was 8.69; Potassium was 4.6; Hemoglobin was 8.6. He is on DVT prophylactic heparin subcutaneous. PROVIDER PRESENCE: Shamika Chambers PA-C was present from the beginning to the end of the procedure. SEDATION: Conscious sedation was used for the procedure. TECHNIQUE: The risks, benefits and alternatives were discussed and informed consent was obtained. Prior to beginning the procedure, [place] Protocol was used to confirm the patient's identity and planned procedure. Fluoroscopy time has been recorded in the electronic medical record. Prior to the procedure, the central veins were evaluated by ultrasound, an image recorded and placed in the patient's chart. Maximum sterile barriers including cap, mask, hand hygiene, sterile gloves, sterile gown, large sterile drape and 2% chlorhexidine for cutaneous antisepsis were used. The skin over the right internal jugular vein was sterilely prepped, draped and infiltrated with 1% lidocaine. The vein was accessed with a 21 gauge needle using realtime ultrasound guidance. A guidewire and catheter were then passed centrally using fluoroscopic guidance. The intravascular length from the access site to the right atrium was then measured. After infiltrating the skin in the subclavicular region with 1% buffered lidocaine, a short transverse incision was made and the 19 cm tip to cuff Duraflow catheter was tunneled to the internal jugular access site, and inserted through a peel-away sheath. The dialysis catheter was flushed with 1000 U/ml heparin. The incision in the lower neck was closed using 4-0 Monocryl. A sterile dressing was applied. ESTIMATED BLOOD LOSS: Minimal. CONDITION: Stable DISCHARGED TO: Recovery and then to inpatient unit. FINDINGS: Ultrasound image shows a patent vein in the lower neck. The final fluoroscopic image demonstrates the catheter with its tip at the cavoatrial junction . No complications are seen. Procedure Note Shamika Chambers PA - 07/12/2024 EXAMINATION: TUNNELED CENTRAL VENOUS CATHETER PLACEMENT USING ULTRASOUND GUIDANCE HISTORY/INDICATION: 78-year-old male with history of chronic kidney disease stage V who was directly admitted by nephrology for initiation of dialysis. Interventional radiology has been consulted for placement of a tunneled hemodialysis catheter placement. 07/11 creatinine was 8.69; Potassium was 4.6; Hemoglobin was 8.6. He is on DVT prophylactic heparin subcutaneous. PROVIDER PRESENCE: Shamika Chambers PA-C was present from the beginning to the end of the procedure. SEDATION: Conscious sedation was used for the procedure. TECHNIQUE: The risks, benefits and alternatives were discussed and informed consent was obtained. Prior to beginning the procedure, [place] Protocol was used to confirm the patient's identity and planned procedure. Fluoroscopy time has been recorded in the electronic medical record. Prior to the procedure, the central veins were evaluated by ultrasound, an image recorded and placed in the patient's chart. Maximum sterile barriers including cap, mask, hand hygiene, sterile gloves, sterile gown, large sterile drape and 2% chlorhexidine for cutaneous antisepsis were used. The skin over the right internal jugular vein was sterilely prepped, draped and infiltrated with 1% lidocaine. The vein was accessed with a 21 gauge needle using realtime ultrasound guidance. A guidewire and catheter were then passed centrally using fluoroscopic guidance. The intravascular length from the access site to the right atrium was then measured. After infiltrating the skin in the subclavicular region with 1% buffered lidocaine, a short transverse incision was made and the 19 cm tip to cuff Duraflow catheter was tunneled to the internal jugular access site, and inserted through a peel-away sheath. The dialysis catheter was flushed with 1000 U/ml heparin. The incision in the lower neck was closed using 4-0 Monocryl. A sterile dressing was applied. ESTIMATED BLOOD LOSS: Minimal. CONDITION: Stable DISCHARGED TO: Recovery and then to inpatient unit. FINDINGS: Ultrasound image shows a patent vein in the lower neck. The final fluoroscopic image demonstrates the catheter with its tip at the cavoatrial junction . No complications are seen. IMPRESSION: Successful tunneled 19 cm tip to cuff Duraflow catheter catheter placement via the right internal jugular vein. PLAN: The catheter is ready for immediate use. When treatment is completed, removal can be scheduled by calling [facility] - [phone] [facility] - [phone] Electronically signed by: Shamika Chambers PA-C us Coco Batres MD IMG IR PROCEDURES Final Resul t * POCT glucose (07/12/2024 7:15 AM INSIDE SALES REPRESENTATIVE) Glucose, POC 158 70 - 199 mg/dL Blood 07/12/2024 7:15 AM INSIDE SALES REPRESENTATIVE 07/12/2024 7:15 AM INSIDE SALES REPRESENTATIVE us Rex Reid MD LAB POCT ORDERABLES - DEVICE Fin al Result Performing Organization Address [facility] de Phone Number [facility] Department [place] [address] * POCT glucose (07/12/2024 4:37 AM INSIDE SALES REPRESENTATIVE) Glucose, POC 175 70 - 199 mg/dL Blood 07/12/2024 4:37 AM INSIDE SALES REPRESENTATIVE 07/12/2024 4:37 AM INSIDE SALES REPRESENTATIVE us Rex Reid MD LAB POCT ORDERABLES - DEVICE Fin al Result Performing Organization Address [facility] de Phone Number [facility] [place] [address] * (ABNORMAL) eGFR (07/11/2024 9:14 PM INSIDE SALES REPRESENTATIVE) eGFR 6(L) >=60 mL/min/1. 73 m2 Comment: Interpretive Data Reference Interval Normal >/= 90 mL/min/1.73m2 Mildly decreased* 60 - 89 mL/min/1.73m2 Mildly to moderately decreased 45 - 59 mL/min/1.73m2 Moderately to severely decreased 30 - 44 mL/min/1.73m2 Severely decreased 15 - 29 mL/min/1.73m2 Kidney Failure < 15 mL/min/1.73m2 *Relative to young adult level Estimated glomerular filtration rate is determined by the 2020 CKD-EPI equation recommended by the National Kidney Foundation (A Unifying Approach to GFR Estimation: Recommendations of the NKF-ASK Task Force on Reassessing the Inclusion of Race in Diagnosing Kidney Disease, JASN 2020). The CKD-EPI equation should not be used for patients with unstable renal function and has not been validated in children and those over 70. Current interpretive data was last reviewed 2021. Blood 07/11/2024 9:14 PM INSIDE SALES REPRESENTATIVE 07/11/2024 9:25 PM INSIDE SALES REPRESENTATIVE us Coco Batres MD LAB BLOOD ORDERABLES Final Re sult [facility] [place] [address] * Differential, auto (07/11/2024 9:14 PM INSIDE SALES REPRESENTATIVE) Pathologist [facility] Neutrophil abs 4.3 1.5 - 6.5 K/cumm Imm gran abs 0.0 0.0 - 0.1 K/cumm [facility] Lymphocyte abs 1.4 0.8 - 3.3 K/cumm [facility] Monocyte abs 0.8 0.2 - 0.8 K/cumm [facility] Eosinophil abs 0.3 0.0 - 0.5 K/cumm [facility] Basophil abs 0.1 0.0 - 0.1 K/cumm [facility] Neutrophil pct 62.2 % [facility] Comment: Interpretive Data Percent cell count reference ranges are not reported, since discordance with absolute values may lead to misinterpretation of CBC data. Current Interpretive Data was last revised on 2017. Imm gran pct 0.6 % [facility] Comment: Interpretive Data Percent cell count reference ranges are not reported, since discordance with absolute values may lead to misinterpretation of CBC data. Current Interpretive Data was last revised on 2017. Lymphocyte pct 20.4 % [facility] Comment: Interpretive Data Percent cell count reference ranges are not reported, since discordance with absolute values may lead to misinterpretation of CBC data. Current Interpretive Data was last revised on 2017. Monocyte pct 11.1 % [facility] Comment: Interpretive Data Percent cell count reference ranges are not reported, since discordance with absolute values may lead to misinterpretation of CBC data. Current Interpretive Data was last revised on 2017. Eosinophil pct 5.0 % [facility] Comment: Interpretive Data Percent cell count reference ranges are not reported, since discordance with absolute values may lead to misinterpretation of CBC data. Current Interpretive Data was last revised on 2017. Basophil pct 0.7 % [facility] Comment: Interpretive Data Percent cell count reference ranges are not reported, since discordance with absolute values may lead to misinterpretation of CBC data. Current Interpretive Data was last revised on 2017. Blood 07/11/2024 9:14 PM INSIDE SALES REPRESENTATIVE 07/11/2024 9:26 PM INSIDE SALES REPRESENTATIVE Coco Batres MD LAB BLOOD ORDERABLES Final Re sult [facility] [place] [address] * (ABNORMAL) Iron profile w/ IBC (07/11/2024 9:14 PM INSIDE SALES REPRESENTATIVE) Iron 28(L) 50 - 150 mcg/dL TIBC 133(L) 250 - 400 mcg/dL [facility] Transferrin saturation 21 20 - 50 % [facility] Blood 07/11/2024 9:14 PM INSIDE SALES REPRESENTATIVE 07/11/2024 9:25 PM INSIDE SALES REPRESENTATIVE us Marcella Taylor MD LAB BLOOD ORDERABLES Final Resul t Performing Organization Address [facility] Co de Phone Number [facility] [place] [address] * (ABNORMAL) CBC with auto differential (07/11/2024 9:14 PM INSIDE SALES REPRESENTATIVE) WBC 6.9 3.8 - 9.9 K/cumm Hgb 8.6(L) 13.0 - 17.5 g/dL [facility] Hct 28.3(L) 38.9 - 50.3 % [facility] Plt 199 150 - 400 K/cumm [facility] MPV 10.5 9.1 - 12.3 fL [facility] RBC 3.39(L) 4.30 - 5.80 M/cumm [facility] MCV 83.5 81.3 - 96.4 fL [facility] MCH 25.4(L) 27.1 - 33.3 pg [facility] MCHC 30.4(L) 32.3 - 35.7 g/dL [facility] RDW CV 17.1(H) 11.1 - 14.9 % [facility] RDW SD 51.2(H) 35.7 - 48.1 fL [facility] NRBC abs 0.00 0.00 - 0.01 K/cumm [facility] Blood 07/11/2024 9:14 PM INSIDE SALES REPRESENTATIVE 07/11/2024 9:26 PM INSIDE SALES REPRESENTATIVE us Coco Batres MD LAB BLOOD ORDERABLES Final Re sult [facility] [place] [address] * Type and screen (07/11/2024 9:14 PM INSIDE SALES REPRESENTATIVE) Aide, indirect Negative ABO Rh O Positive [facility] Blood 07/11/2024 9:14 PM INSIDE SALES REPRESENTATIVE 07/11/2024 9:51 PM INSIDE SALES REPRESENTATIVE Narrative [facility] - 07/11/2024 10:40 PM INSIDE SALES REPRESENTATIVE Has the patient had Daratumumab or Isatuximab in the past 6 months?->Unknown Coco Batres MD LAB BLOOD BANK TEST ORDERABLE S Final Result Performing Organization Address [facility] de Phone Number [facility] [place] [address] * (ABNORMAL) Phosphorus (07/11/2024 9:14 PM INSIDE SALES REPRESENTATIVE) Phosphorus, pl 7.0(H) 2.3 - 4.5 mg/dL Blood 07/11/2024 9:14 PM INSIDE SALES REPRESENTATIVE 07/11/2024 9:25 PM INSIDE SALES REPRESENTATIVE Coco Batres MD LAB BLOOD ORDERABLES Final Re sult Performing Organization Address [facility] de Phone Number [facility] [place] [address] * Magnesium (07/11/2024 9:14 PM INSIDE SALES REPRESENTATIVE) [facility] Magnesium 2.5 1.4 - 2.5 mg/dL Blood 07/11/2024 9:14 PM INSIDE SALES REPRESENTATIVE 07/11/2024 9:25 PM INSIDE SALES REPRESENTATIVE Result [facility] Coco Batres MD LAB BLOOD ORDERABLES Final Re sult Performing Organization Address [facility] [place] [address] * (ABNORMAL) Hemoglobin A1c (07/11/2024 9:14 PM INSIDE SALES REPRESENTATIVE) Hgb A1C 6.3(H) 4.0 - 5.6 % Estimated Average Glucose 134 mg/dL [facility] Comment: The ADA recommends reporting an estimated Average Glucose (eAG) with all Hemoglobin A1c results using the equation derived from a study of 507 normal and diabetic adults. Minority populations were underrepresented and children were not included. (Diabetes Care 2020; 43(S1): S66-S76). The eAG is not equivalent to a fasting glucose. Blood 07/11/2024 9:14 PM INSIDE SALES REPRESENTATIVE 07/11/2024 9:39 PM INSIDE SALES REPRESENTATIVE Narrative [facility] - 07/12/2024 8:23 AM INSIDE SALES REPRESENTATIVE Reflex Rex Reid MD LAB BLOOD ORDERABLES Final Resul t Performing Organization Address [facility] de Phone Number [facility] [place] [address] * Ferritin (07/11/2024 9:14 PM INSIDE SALES REPRESENTATIVE) [facility] Ferritin 77 30 - 400 ng/mL Blood 07/11/2024 9:14 PM INSIDE SALES REPRESENTATIVE 07/11/2024 9:25 PM INSIDE SALES REPRESENTATIVE us Marcella Taylor MD LAB BLOOD ORDERABLES Final Resul t Performing Organization Address [facility] de Phone Number [facility] [place] [address] * (ABNORMAL) Comprehensive metabolic panel (07/11/2024 9:14 PM INSIDE SALES REPRESENTATIVE) [facility] Sodium 137 135 - 145 mmol/L Potassium, pl 4.6 3.3 - 4.9 mmol/L [facility] Chloride 104 97 - 110 mmol/L [facility] CO2 21(L) 22 - 32 mmol/L [facility] Anion gap 12 2 - 15 mmol/L [facility] BUN 72(H) 6 - 25 mg/dL [facility] Creatinine 8.69(H) 0.80 - 1.30 mg/dL [facility] Glucose 214(H) 70 - 199 mg/dL [facility] Comment: Interpretive Data Fasting glucose >/= 126 mg/dl is diagnostic for diabetes. Fasting is defined as no caloric intake for at least 8 hours. Fasting glucose between 100 mg/dl to 125 mg/dl is diagnostic of prediabetes. In a patient with classic symptoms of hyperglycemia or hyperglycemic crisis, a random glucose >/= 200 mg/dl is diagnostic for diabetes. In the absence of unequivocal hyperglycemia, results should be confirmed by repeat testing. The classification and Diagnosis of Diabetes Diabetes Care 2021; 46: S19-S40. Current interpretive data was last revised 2022. Calcium 7.6(L) 8.5 - 10.3 mg/dL [facility] Bilirubin, total 0.7 0.1 - 1.2 mg/dL [facility] Protein, pl 6.0(L) 6.5 - 8.5 g/dL [facility] Albumin 3.1(L) 3.5 - 5.0 g/dL [facility] Alk phos 68 40 - 130 Units/L [facility] ALT 11 7 - 55 Units/L [facility] AST 22 10 - 50 Units/L [facility] Blood 07/11/2024 9:14 PM INSIDE SALES REPRESENTATIVE 07/11/2024 9:25 PM INSIDE SALES REPRESENTATIVE Coco Batres MD LAB BLOOD ORDERABLES Final Re sult Performing Organization Address City/[facility]/ZIP Co de Phone Number [facility] [place] [address] * POCT glucose (07/11/2024 7:32 PM INSIDE SALES REPRESENTATIVE) [facility] Glucose, POC 180 70 - 199 mg/dL Blood 07/11/2024 7:32 PM INSIDE SALES REPRESENTATIVE 07/11/2024 7:32 PM INSIDE SALES REPRESENTATIVE Marcella Taylor MD LAB POCT ORDERABLES - DEVICE Fin al Result [facility] Department [place] [address] * SCAN - LABS (07/11/2024) us Provider Scanning Edited Result - Final * Influenza A/B, RSV, and COVID-19 PCR Nasopharyngeal (07/09/2024 11:52 AM INSIDE SALES REPRESENTATIVE) [facility] COVID-19 RNA Negative Negative Influenza A RNA Negative Negative [facility] Influenza B RNA Negative Negative [facility] RSV RNA Negative Negative [facility] Comment: Interpretive data: Testing performed by [facility]. This test is performed using the Bio[employer] Xpert Xpress CoV-2/Flu/RSV plus assay. This is a multiplex, real-time reverse transcriptase PCR assay intended for the qualitative detection of nucleic acid from SARS-CoV-2, influenza A, influenza B, and respiratory syncytial virus. This assay has been cleared by the [place] Food and Drug administration. The performance characteristics have been verified by the [facility]. Results must be considered in the clinical context, and a negative result does not rule out infection. Interpretive Data last revised 2023 Nasopharyngeal 07/09/2024 11 :52 AM INSIDE SALES REPRESENTATIVE 07/09/2024 2:52 PM INSIDE SALES REPRESENTATIVE Narrative [facility] - 07/09/2024 4:04 PM INSIDE SALES REPRESENTATIVE Is the Patient experiencing symptoms consistent with COVID?->Yes Manjula Gonzalez NP LAB MICROBIOLOGY - GENERAL ORD ERABLES Final Result [facility] [address] [place] [address] * POC Influenza A/B, COVID-19 antigen (07/09/2024 11:34 AM INSIDE SALES REPRESENTATIVE) [facility] Influenza A Ag, POC Negative Negative [facility] Influenza B Ag, POC Negative Negative [facility] COVID-19 Ag POC Presumptive Negative Presumptive Negative, Invalid [facility] Nasal 07/09/2024 11:3 4 AM INSIDE SALES REPRESENTATIVE us Manjula Gonzalez [employer]ITY SPECIALIST POINT OF CARE TEST ORDERABLES Final Result [facility] [address] * (ABNORMAL) eGFR (07/03/2024 12:19 PM INSIDE SALES REPRESENTATIVE) [facility] eGFR 6(L) >=60 mL/min/1. 73 m2 Comment: Interpretive Data Reference Interval Normal >/= 90 mL/min/1.73m2 Mildly decreased* 60 - 89 mL/min/1.73m2 Mildly to moderately decreased 45 - 59 mL/min/1.73m2 Moderately to severely decreased 30 - 44 mL/min/1.73m2 Severely decreased 15 - 29 mL/min/1.73m2 Kidney Failure < 15 mL/min/1.73m2 *Relative to young adult level Estimated glomerular filtration rate is determined by the 2020 CKD-EPI equation recommended by the National Kidney Foundation (A Unifying Approach to GFR Estimation: Recommendations of the NKF-ASK Task Force on Reassessing the Inclusion of Race in Diagnosing Kidney Disease, JASN 2020). The CKD-EPI equation should not be used for patients with unstable renal function and has not been validated in children and those over 70. Current interpretive data was last reviewed 2021. Blood 07/03/2024 12:1 9 PM INSIDE SALES REPRESENTATIVE 07/03/2024 12:19 PM INSIDE SALES REPRESENTATIVE us Marcella Taylor MD LAB BLOOD ORDERABLES Final Resul t [facility] [place] [address] * (ABNORMAL) Differential, auto (07/03/2024 12:19 PM INSIDE SALES REPRESENTATIVE) Pathologist [facility] Neutrophil abs 9.6(H) 1.5 - 6.5 K/cumm Comment:Testing performed by : [facility], [address] [place] [id number] Imm gran abs 0.1 0.0 - 0.1 K/cumm [facility] Lymphocyte abs 1.1 0.8 - 3.3 K/cumm [facility] Monocyte abs 0.7 0.2 - 0.8 K/cumm [facility] Eosinophil abs 0.4 0.0 - 0.5 K/cumm [facility] Basophil abs 0.1 0.0 - 0.1 K/cumm [facility] Neutrophil pct 79.8 % [facility] Comment: Interpretive Data Percent cell count reference ranges are not reported, since discordance with absolute values may lead to misinterpretation of CBC data. Current Interpretive Data was last revised on 2017. Imm gran pct 0.5 % [facility] Comment: Interpretive Data Percent cell count reference ranges are not reported, since discordance with absolute values may lead to misinterpretation of CBC data. Current Interpretive Data was last revised on 2017. Lymphocyte pct 9.4 % [facility] Comment: Interpretive Data Percent cell count reference ranges are not reported, since discordance with absolute values may lead to misinterpretation of CBC data. Current Interpretive Data was last revised on 2017. Monocyte pct 5.9 % [facility] Comment: Interpretive Data Percent cell count reference ranges are not reported, since discordance with absolute values may lead to misinterpretation of CBC data. Current Interpretive Data was last revised on 2017. Eosinophil pct 3.7 % [facility] Comment: Interpretive Data Percent cell count reference ranges are not reported, since discordance with absolute values may lead to misinterpretation of CBC data. Current Interpretive Data was last revised on 2017. Basophil pct 0.7 % [facility] Comment: Interpretive Data Percent cell count reference ranges are not reported, since discordance with absolute values may lead to misinterpretation of CBC data. Current Interpretive Data was last revised on 2017. Blood 07/03/2024 12:1 9 PM INSIDE SALES REPRESENTATIVE 07/03/2024 12:19 PM INSIDE SALES REPRESENTATIVE us Marcella Taylor MD LAB BLOOD ORDERABLES Final Resul t [facility] Department of Laboratories [place], [place] [id number] * (ABNORMAL) CBC with auto differential (07/03/2024 12:19 PM INSIDE SALES REPRESENTATIVE) WBC 12.0(H) 3.8 - 9.9 K/cumm Comment:Testing performed by : [facility], [address] [place] [phone] Hgb 9.1(L) 13.0 - 17.5 g/dL [facility] Comment:Testing performed by : [facility], [address] [place] [phone] Hct 28.8(L) 38.9 - 50.3 % [facility] Comment:Testing performed by : [facility], [address] [place] [id number] Plt 230 150 - 400 K/cumm [facility] Comment:Testing performed by : [address] [id number] MPV 10.0 9.1 - 12.3 fL [facility] RBC 3.49(L) 4.30 - 5.80 M/cumm [facility] MCV 82.5 81.3 - 96.4 fL [facility] MCH 26.1(L) 27.1 - 33.3 pg [facility] MCHC 31.6(L) 32.3 - 35.7 g/dL [facility] RDW CV 16.6(H) 11.1 - 14.9 % [facility] RDW SD 50.1(H) 35.7 - 48.1 fL [facility] NRBC abs 0.00 0.00 - 0.01 K/cumm [facility] Blood 07/03/2024 12:1 9 PM INSIDE SALES REPRESENTATIVE 07/03/2024 12:19 PM INSIDE SALES REPRESENTATIVE us Marcella Taylor MD LAB BLOOD ORDERABLES Final Resul t [facility] [place] [address] * Lactate dehydrogenase (LD) (07/03/2024 12:19 PM INSIDE SALES REPRESENTATIVE) Lactate dehydrogenase (LDH) 239 100 - 250 Units/L Comment:Testing performed by : [address] [id number] Blood 07/03/2024 12:1 9 PM INSIDE SALES REPRESENTATIVE 07/03/2024 12:19 PM INSIDE SALES REPRESENTATIVE us Marcella Taylor MD LAB BLOOD ORDERABLES Final Resul t [facility] [place] [address] * (ABNORMAL) Comprehensive metabolic panel (07/03/2024 12:19 PM INSIDE SALES REPRESENTATIVE) Sodium 144 135 - 145 mmol/L Comment:Testing performed by : [facility], [address] [place] [id number] Potassium, pl 4.4 3.3 - 4.9 mmol/L [facility] Chloride 109 97 - 110 mmol/L [facility] CO2 22 22 - 32 mmol/L [facility] Anion gap 13 2 - 15 mmol/L [facility] BUN 75(H) 6 - 25 mg/dL [facility] Creatinine 7.93(H) 0.80 - 1.30 mg/dL [facility] Glucose 145 70 - 199 mg/dL [facility] Comment: Interpretive Data Fasting glucose >/= 126 mg/dl is diagnostic for diabetes. Fasting is defined as no caloric intake for at least 8 hours. Fasting glucose between 100 mg/dl to 125 mg/dl is diagnostic of prediabetes. In a patient with classic symptoms of hyperglycemia or hyperglycemic crisis, a random glucose >/= 200 mg/dl is diagnostic for diabetes. In the absence of unequivocal hyperglycemia, results should be confirmed by repeat testing. The classification and Diagnosis of Diabetes Diabetes Care 202; 46: S19-S40. Current interpretive data was last revised 2022. Calcium 7.9(L) 8.5 - 10.3 mg/dL [facility] Bilirubin, total 0.6 0.1 - 1.2 mg/dL [facility] Protein, pl 6.3(L) 6.5 - 8.5 g/dL [facility] Albumin 3.4(L) 3.5 - 5.0 g/dL [facility] Alk phos 74 40 - 130 Units/L [facility] ALT 9 7 - 55 Units/L [facility] AST 15 10 - 50 Units/L [facility] Blood 07/03/2024 12:1 9 PM INSIDE SALES REPRESENTATIVE 07/03/2024 12:19 PM INSIDE SALES REPRESENTATIVE us Marcella Taylor MD LAB BLOOD ORDERABLES Final Resul t [facility] [place] [address] * PET/CT FDG Skull to Thigh (06/27/2024 9:08 AM INSIDE SALES REPRESENTATIVE) Anatomical Region Laterality Modality N/A Positron Emissio n Tomography (PET) 06/27/2024 9:48 AM INSIDE SALES REPRESENTATIVE Impressions 06/27/2024 1:52 PM INSIDE SALES REPRESENTATIVE 1. Continued treatment response with decrease in FDG avidity and side of several peritoneal and mesenteric deposits. 2. Multiple mediastinal and bilateral level 5 lymph nodes none of activity similar to blood pool and likely reactive. 3. Volume overload with bilateral right greater than left pleural effusions, trace ascites and body wall edema. Dictated by: Mildred Liang MD The radiology attending physician has personally reviewed this study, and had reviewed and/or edited this written report and agrees with it. Electronically signed by: Daniel Herr MD Narrative 06/27/2024 1:52 PM INSIDE SALES REPRESENTATIVE EXAMINATION: TUMOR FDG-PET/CT IMAGING DATE OF STUDY: 06/27/2024 SCANNER: RADIOPHARMACEUTICAL: 15.42 mCi F-18 Fluorodeoxyglucose (FDG) i.v. 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 Status post recurrence in 2020 informative peritoneal carcinomatosis, status post repeat resection. Started on Ripretinib. The study is requested for treatment monitoring during therapy. Subsequent treatment strategy. TECHNIQUE: The patient's fasting blood glucose level, measured by glucometer before injection of FDG, was 108 mg/dL. After intravenous administration of FDG, noncontrast CT images were obtained for attenuation correction and for fusion with emission PET images to allow for anatomical localization of PET findings. Emission PET images were then obtained. The study was interpreted on the [employer] workstation. The mean liver SUV (reported for quality assurance calibrator purposes) is 1.9. The total scanned area was skull base to proximal thighs. Images of the body were obtained starting 61 minutes after injection of tracer. All reported SUVs are maximum SUVs, unless otherwise specified. COMPARISON: Prior FDG PET on 03/13/2024 and 09/20/2023 DESCRIPTORS OF LESION FDG AVIDITY: Minimal: <= blood pool Mild: > blood pool and <= liver Moderate: > liver and <= 2x SUVmax liver Moderate to marked: >2x SUVmax liver and <= 3x SUVmax liver Marked: > 3x SUVmax liver FINDINGS: Several previously moderately FDG avid mediastinal lymph nodes currently have mild activity, for reference a partially calcified right paratracheal lymph node (87/323, currently has activity similar to blood pool). Previously seen prevascular lymph node in table position 94/323 also has activity similar to blood pool. Decrease in size and FDG avidity of multiple peritoneal and mesenteric deposits. For reference a 1.4 cm deposit in the left paracolic gutter deposited in 171/323 has activity similar to blood pool. A partially calcified moderately FDG avid focus adjacent to the small bowel in the left anterior abdomen (200/323) also has decreased uptake, now with SUV 4.7, whereas previously it was 5.7 on 03/13/2024. There is a 1.8 x 1.6 cm lesion in the right abdomen (image 160) without any significant FDG uptake. This lesion has decreased in size, measured 2.5 x 2.2 cm on prior PET/CT. Additional CT findings: New moderate right and small left pleural effusions. Calcified gallstones. Dense atherosclerotic calcifications of the infrarenal abdominal aorta. Severe coronary calcifications. A right extrarenal pelvis. Trace volume ascites. Mild body wall anasarca. Procedure Note Daniel Herr MD - 06/27/2024 EXAMINATION: TUMOR FDG-PET/CT IMAGING DATE OF STUDY: 06/27/2024 SCANNER: RADIOPHARMACEUTICAL: 15.42 mCi F-18 Fluorodeoxyglucose (FDG) i.v. 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 Status post recurrence in 2020 informative peritoneal carcinomatosis, status post repeat resection. Started on Ripretinib. The study is requested for treatment monitoring during therapy. Subsequent treatment strategy. TECHNIQUE: The patient's fasting blood glucose level, measured by glucometer before injection of FDG, was 108 mg/dL. After intravenous administration of FDG, noncontrast CT images were obtained for attenuation correction and for fusion with emission PET images to allow for anatomical localization of PET findings. Emission PET images were then obtained. The study was interpreted on the [employer] workstation. The mean liver SUV (reported for quality assurance calibrator purposes) is 1.9. The total scanned area was skull base to proximal thighs. Images of the body were obtained starting 61 minutes after injection of tracer. All reported SUVs are maximum SUVs, unless otherwise specified. COMPARISON: Prior FDG PET on 03/13/2024 and 09/20/2023 DESCRIPTORS OF LESION FDG AVIDITY: Minimal: <= blood pool Mild: > blood pool and <= liver Moderate: > liver and <= 2x SUVmax liver Moderate to marked: >2x SUVmax liver and <= 3x SUVmax liver Marked: > 3x SUVmax liver FINDINGS: Several previously moderately FDG avid mediastinal lymph nodes currently have mild activity, for reference a partially calcified right paratracheal lymph node (87/323, currently has activity similar to blood pool). Previously seen prevascular lymph node in table position 94/323 also has activity similar to blood pool. Decrease in size and FDG avidity of multiple peritoneal and mesenteric deposits. For reference a 1.4 cm deposit in the left paracolic gutter deposited in 171/323 has activity similar to blood pool. A partially calcified moderately FDG avid focus adjacent to the small bowel in the left anterior abdomen (200/323) also has decreased uptake, now with SUV 4.7, whereas previously it was 5.7 on 03/13/2024. There is a 1.8 x 1.6 cm lesion in the right abdomen (image 160) without any significant FDG uptake. This lesion has decreased in size, measured 2.5 x 2.2 cm on prior PET/CT. Additional CT findings: New moderate right and small left pleural effusions. Calcified gallstones. Dense atherosclerotic calcifications of the infrarenal abdominal aorta. Severe coronary calcifications. A right extrarenal pelvis. Trace volume ascites. Mild body wall anasarca. IMPRESSION: 1. Continued treatment response with decrease in FDG avidity and side of several peritoneal and mesenteric deposits. 2. Multiple mediastinal and bilateral level 5 lymph nodes none of activity similar to blood pool and likely reactive. 3. Volume overload with bilateral right greater than left pleural effusions, trace ascites and body wall edema. Dictated by: Mildred Liang MD The radiology attending physician has personally reviewed this study, and had reviewed and/or edited this written report and agrees with it. Electronically signed by: Daniel Herr MD us Marcella Taylor MD IMG PET PROCEDURES Final Result * (ABNORMAL) Albumin Creatinine Ratio, Urine (05/13/2024 9:16 AM INSIDE SALES REPRESENTATIVE) Albumin Ur 3,688.8 mg/L Comment: Interpretive Data No reference range established. Current interpretive data was last revised 2018. Creatinine Ur 59.2 mg/dL [facility] Comment: Interpretive Data No reference range established. Current interpretive data was last revised 2018. Albumin Creatinine Ratio, Ur 6,231(H) 1 - 29 mg/g [facility] Urine 05/13/2024 9:16 AM INSIDE SALES REPRESENTATIVE 05/13/2024 2:55 PM INSIDE SALES REPRESENTATIVE us Matt Kendrick MD LAB URINE ORDERABLE S Final Result [facility] [address] [place] [address] * (ABNORMAL) Lipid panel (05/13/2024 9:16 AM INSIDE SALES REPRESENTATIVE) Cholesterol 128 30 - 199 mg/dL Comment: Interpretive Data Ages < or = 19 years Acceptable: <170 mg/dL Borderline high: 170-199 mg/dL High: >or= 200 mg/dL Ages > or = 20 years Desirable: <200 mg/dL Borderline high: 200-239 mg/dL High: >or= 240 mg/dL Literature References: 1. Expert Panel on Integrated Guidelines for Cardiovascular Health and Risk Reduction in Children and Adolescents. Pediatrics 2011;128:S213 2. NCEP Expert Panel. Circulation 2004;110:227 Current Interpretive Data was last revised on 2018. Triglycerides 67 <=149 mg/dL [facility] Comment: Interpretive Data Ages < or = 9 years Acceptable: <75 mg/dL Borderline high: 75-99 mg/dL High: >or= 100 mg/dL Ages 10 to 20 years Acceptable: <90 mg/dL Borderline high: 90-129 mg/dL High: >or= 130 mg/dL Ages > or = 20 years Desirable: <150 mg/dL Borderline high: 150-199 mg/dL High: 200-499 mg/dL Very high: >or= 499 mg/dL Literature References: 1. Expert Panel on Integrated Guidelines for Cardiovascular Health and Risk Reduction in Children and Adolescents. Pediatrics 2011;128:S213 2. NCEP Expert Panel. Circulation 2004;110:227 Current Interpretive Data was last revised on 2018. HDL 37(L) >=40 mg/dL [facility] Comment: Interpretive Data Ages < or = 19 years Acceptable: >45 mg/dL Borderline low: 40-45 mg/dL Low: <40 mg/dL Ages > or = 20 years Desirable: >or= 60 mg/dL Low: <40 mg/dL Literature References: 1. Expert Panel on Integrated Guidelines for Cardiovascular Health and Risk Reduction in Children and Adolescents. Pediatrics 2011;128:S213 2. NCEP Expert Panel. Circulation 2004;110:227 Current Interpretive Data was last revised on 2018. LDL, calculated 77 <=129 mg/dL [facility] Comment: Interpretive Data Ages < or = 19 years Acceptable: <110 mg/dL Borderline high: 110-129 mg/dL High: >or= 130 mg/dL Ages > or = 20 years Optimal: <100 mg/dL Near optimal: 100-129 mg/dL Borderline high: 130-159 mg/dL High: >160 mg/dL Calculated using the Ovidio LDL-C estimating equation. This equation was implemented on 2024. Prior to this date LDL-C was estimated using the Friedewald equation. Literature References: 1. Expert Panel on Integrated Guidelines for Cardiovascular Health and Risk Reduction in Children and Adolescents. Pediatrics 2011;128:S213 2. NCEP Expert Panel. Circulation 2004;110:227 3. Ovidio Kerns. JOVI Cardiol. 2020 October 03;5(5):540-548. doi: 10.1001/jamacardio.2020.0013 Current Interpretive Data was last revised on 2024. Non-HDL Cholesterol 91 mg/dL [facility] Comment: Interpretive Data Ages < or = 19 years Acceptable: <120 mg/dL Borderline high: 120-144 mg/dL High: >145 mg/dL Ages > or = 20 years When triglycerides are >200 mg/dL, Non-HDL cholesterol is a secondary target of therapy with treatment goals that are 30 mg/dL greater than the LDL cholesterol target. Literature References: 1. Expert Panel on Integrated Guidelines for Cardiovascular Health and Risk Reduction in Children and Adolescents. Pediatrics 2011;128:S213 2. NCEP Expert Panel. Circulation 2004;110:227 Current Interpretive Data was last revised on 2018. Chol/HDL ratio 3 PITA Blood 05/13/2024 9:16 AM INSIDE SALES REPRESENTATIVE 05/13/2024 2:55 PM INSIDE SALES REPRESENTATIVE us Allieja Aroldo Kendrick MD LAB BLOOD ORDERABLE S Final Result PITA [address] [place] [address] * CT abdomen pelvis without contrast (12/14/2023 12:26 PM CDT) Anatomical Region Laterality Modality Body N/A Computed Tomogra phy 12/14/2023 12:5 0 PM CDT Impressions 12/14/2023 12:50 PM CDT 1. Nonspecific perinephric stranding bilaterally which is similar to the prior examination. Consider correlation with urinalysis. Otherwise, no acute findings. No definite explanation for the patient's reported pain. 2. Stable metastatic omental and peritoneal nodules. Electronically signed by: Lenny Redd M.D., Ph.D Narrative 12/14/2023 12:50 PM CDT EXAMINATION: Computed tomography of the abdomen and pelvis without intravenous contrast HISTORY: Gastrointestinal stromal tumor. New onset of abdominal pain. TECHNIQUE: Transaxial computed tomographic images of the abdomen and pelvis were obtained without intravenous contrast according to the standard protocol. COMPARISON: PET/CT dated 11/08/2023. FINDINGS: Limited views of the thorax are provided. There is atelectasis seen in the dependent portions of the lungs. No suspicious pulmonary nodules or masses. No pneumonic consolidation. No pulmonary edema. No pneumothorax or pleural effusion. Heart size is within normal limits. There is trace pericardial fluid. Scattered vascular calcifications are seen. There is widening of the periportal space which can be seen in the setting of fibrosis. Hypoattenuating lesion within hepatic segment 7 at series 2, image 54 which is favored represent a cyst. Cholelithiasis without cholecystitis. Pancreas normal. Splenic calcifications are seen. No suspicious splenic or pancreatic lesion. There is nonspecific stranding seen adjacent the kidneys which is unchanged. The adrenal glands appear normal without suspicious lesion. No hydronephrosis. No obstructing renal stones. There are prominent extrarenal pelvis sees seen bilaterally. The urinary bladder is decompressed. There is colonic diverticulosis without diverticulitis. No appendiceal inflammation. No suspicious bowel wall thickening. No evidence of bowel obstruction. Limited evaluation of the vasculature given noncontrast technique. Scattered vascular calcifications are present. The aorta is normal in caliber. Redemonstrated is extensive omental and peritoneal nodularity which appears similar when compared to the prior PET/CT on 11/08/2023 there is an example nodule seen to the right of midline at series 2, image 157 that measures approximately 1.3 cm, unchanged. There is an unchanged right inguinal canal nodule that measures approximately 1.5 cm. No definite evidence of further progression of disease. No free intraperitoneal fluid or gas. No suspicious abdominal wall lesions. Degenerative changes are seen in the spine. No suspicious lytic or blastic osseous lesions are present. Procedure Note Lenny Redd MD PhD - 12/14/2023 EXAMINATION: Computed tomography of the abdomen and pelvis without intravenous contrast HISTORY: Gastrointestinal stromal tumor. New onset of abdominal pain. TECHNIQUE: Transaxial computed tomographic images of the abdomen and pelvis were obtained without intravenous contrast according to the standard protocol. COMPARISON: PET/CT dated 11/08/2023. FINDINGS: Limited views of the thorax are provided. There is atelectasis seen in the dependent portions of the lungs. No suspicious pulmonary nodules or masses. No pneumonic consolidation. No pulmonary edema. No pneumothorax or pleural effusion. Heart size is within normal limits. There is trace pericardial fluid. Scattered vascular calcifications are seen. There is widening of the periportal space which can be seen in the setting of fibrosis. Hypoattenuating lesion within hepatic segment 7 at series 2, image 54 which is favored represent a cyst. Cholelithiasis without cholecystitis. Pancreas normal. Splenic calcifications are seen. No suspicious splenic or pancreatic lesion. There is nonspecific stranding seen adjacent the kidneys which is unchanged. The adrenal glands appear normal without suspicious lesion. No hydronephrosis. No obstructing renal stones. There are prominent extrarenal pelvis sees seen bilaterally. The urinary bladder is decompressed. There is colonic diverticulosis without diverticulitis. No appendiceal inflammation. No suspicious bowel wall thickening. No evidence of bowel obstruction. Limited evaluation of the vasculature given noncontrast technique. Scattered vascular calcifications are present. The aorta is normal in caliber. Redemonstrated is extensive omental and peritoneal nodularity which appears similar when compared to the prior PET/CT on 11/08/2023 there is an example nodule seen to the right of midline at series 2, image 157 that measures approximately 1.3 cm, unchanged. There is an unchanged right inguinal canal nodule that measures approximately 1.5 cm. No definite evidence of further progression of disease. No free intraperitoneal fluid or gas. No suspicious abdominal wall lesions. Degenerative changes are seen in the spine. No suspicious lytic or blastic osseous lesions are present. IMPRESSION: 1. Nonspecific perinephric stranding bilaterally which is similar to the prior examination. Consider correlation with urinalysis. Otherwise, no acute findings. No definite explanation for the patient's reported pain. 2. Stable metastatic omental and peritoneal nodules. Electronically signed by: Lenny Redd M.D., Ph.D Marcella Taylor MD IM CT PROCEDURES Final Result * DIABETES EYE EXAM (06/15/2023) 06/15/2023 Historical Provider HEALTH MAINTENANCE Edited Result - Final from Last 3 Months or Most Recently Relevant to Health Maintenance Insurance [place]IC[place] [id number] [employer] SUPPLEMENT MEDIC[place] [id number] H [employer] W [employer] SUPPLEMENT MEDICARE COMMERCIAL GENERIC Formerly [facility] [employer] [address] [place] [id number] Advance Directives For more information, please contact: [phone] * Full Code (Latest Code Status on File) Date Activated Date Inactivated Comments 07/11/2024 7:07 PM 07/14/2024 6:15 PM * Full Code Date Activated Date Inactivated Comments 02/24/2023 3:22 PM 02/25/2023 3:19 PM * Full Code Date Activated Date Inactivated Comments 02/24/2023 11:59 AM 02/24/2023 2:06 PM * Full Code Date Activated Date Inactivated Comments 08/18/2020 1:40 PM 08/20/2020 6:08 PM * Full Code Date Activated Date Inactivated Comments 07/29/2020 1:19 PM 07/30/2020 4:54 AM Care Teams Baker Apprentice Relationship Specialty [place] [id number] [address] PCP - General Family Practice 04/26/22 Marcella Taylor MD [address] [place] [address] Medical Oncologist/Straddle Truck Driver Medical Oncology 08/08/20
--- OUTSIDE RECORDS SUMMARY | 2024-09-05 14:40 | XMS_ITS | Continuity of Care Document ---
Author Organization [facility] Address [address] [place] [address] Phone Care Team Providers Care Delivery Clerk Name Role Phone Gerard Mo MD Unavailable Unavailable Allergies, Adverse Reactions, Alerts Substance Reaction Status Criticality No Known Allergies Active No Inform ation Medications Medication Instructions Dosage Effective Dates (start - stop) Status Comments losartan 50 mg tablet take 1 tablet by o ral route every day 50 MG - Active Flomax 0.4 mg capsule take 1 capsule by oral route every day 1/2 hour following the same meal each day 0.4 MG - Active metformin 500 mg tablet take 1 tablet by oral route 2 times every day with morning and evening meals 500 MG - Active metoprolol tartrate 50 mg tablet take 1 tablet by oral route 2 times every day with meals 50 MG - Active Livalo 4 mg tablet take 1 tablet by ora l route every day 4 MG - Active Amaryl 4 mg tablet take 1 tablet by ora l route every day 4 MG - Active hydralazine 50 mg tablet take 1 tablet by oral route 2 times every day with food 50 MG - Active Procedures Procedure Date OFFICE/OUTPATIENT VISIT, EST PPPS, initial visit OFFICE/OUTPATIENT VISIT, EST OFFICE/OUTPATIENT VISIT, EST OFFICE/OUTPATIENT VISIT, NEW Advance Directives Directive Yes / No Effective Date File Name No Information Encounters Encounter Description Practice Location Reason(s) For Visit Diagnoses Date Provider Providers Copied on Encounter [facility] [place], [address], [place], [place], [id number], [place] tel:[phone] [facility] [place] No Information [address], [place], [place], [id number] , [place]. tel:[phone] OFFICE/OUTPA TIENT VISIT, EST [facility] [place], [address], [place], [place], [id number], [place] tel:[phone] [facility] [place] suture1 (chief complaint) Pain in left hand [address], [place], [place], [id number] , [place]. tel:[phone] Referring Provider: Jada [address] [facility] [address], [place], [place], [id number]. tel:[phone] OFFICE/OUTPA TIENT VISIT, [facility], [address], [place], [place], [id number], [place] tel:[phone] [facility] [place] diarrhea (chief complaint) diarrhea1 (chief complaint) DiarrheaEssential (primary) hypertensionBPH w/ lower urinary tract symptomsEncounter for general adult medical exam w abnormal findingsAnemiaMalig nant neoplasm of small intestine, unspecifiedType 2 diabetes mellitus without complications [address], [place], [place], [address] , [place]. [phone] Referring Provider: J[address], [place], [place], [address]. tel:[phone] OFFICE/OUTPA TIENT VISIT, [facility], [address], [place], [place], [address], [place] tel:[phone] [facility] [place] Anemia1 (chief complaint) DM (chief complaint) anxiety1 (chief complaint) insomnia1 (chief complaint) AnemiaType 2 diabetes mellitus without complicationsSleep disorder [address], [place], [place], [address] , [place]. tel:[phone] Referring Provider: Gerard Mo, [address], [place], [place], [address]. tel:[phone] OFFICE/OUTPA TIENT VISIT, [facility], [address], [place], [place], [address], [place] tel:[phone] [facility] Medicine colon CA (chief complaint) HTN (chief complaint) DM (chief complaint) Malignant neoplasm of ascending colonType 2 diabetes mellitus without complicationsEssent ial (primary) hypertensionAnemia 0-201 [address], [place], [place], [address] , [place]. tel:[phone] Referring Provider: Gerard Mo, [address] [facility] [address], [place], [place], [id number]. tel:[phone] Family History Family Member Type Diagnosis Age At Onset Father Problem (finding) Brother Problem (finding) Alive and well Father Problem (finding) of unknown age 93 Mother Problem (finding) of 93 natural cuas e Mother Problem (finding) Payers Payer name Insurance type Covered green party ID Authoriza tion(s) No Information Social History Type Description Quantity Date Captured Comments Sex Male Smoking Status No Information Chief Complaint And Reason For Visit No Information Plan Of Treatment Date Type Action Status Goal Special diet education compl eted Goal Special diet education compl eted Referral Ordered: COLONOSCOPY AND BIOPSY ordered History Of Present Illness Encounter Date Complaint History Of Prese nt Illness suture1 Pt accidently cu t volar surface left thumb with wet pour supervisor blade 10 days ago requiring suture placement x 5. Pt did have x ray which did not show any bony injury. Pt denies any wound dehiscence, pus drainage, redness or warmth, pain or any paresthesia. diarrhea1 Pt has intermitt ent diarrhea daily for the past 2 weeks Pt has 3 diarrhea per day pt denies any blood. Pt denies any recent travel or any sick contact. pt denies any abdominal pain Pt denies any nausea, vomiting. Pt is able to tolerating oral intake ok as well as liquid,. Pt denies eating any new type of food or new medication. Pt is on gleevec for small intestine stroma tumor. Pt is seeing oncologist and he is getting regular CT and MRI scan to ensure remission of GI tumor. Pt also has HTN and CAD s/p CABG. 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 Pt is on metformin and amaryl. He states that his BG is around 120s. Pt denies any hypoglycemia. Pt denies any polyuria, polyuria. Pt also has urinary dribbling and some urinary difficulty but he never tried flomax. his prostate appeared ok on exam. Pt denies any dysuria. UTI symptoms diarrhea insomnia1 Pt has insomnia. Pt states that he wakes up frequently at night. Pt wakes up to go to bathroom to urinate. Pt states that he has some slow stream sometimes. Pt denies any urinary difficulty. Pt denies any difficulty falling asleep. Pt denies any urinary symptoms during the day. Pt does not snore but he breath heavily. He gets up at least twice at night to urinate anxiety1 Pt has not been taking celexa and xanax since his anxiety attack resolved Pt denies any depression or any suicidal thought. Pt denies any crying spells DM Pt has DM Pt brittany e lantus, januvia. metofrmin and amaryl. His A1c is 8.5. Pt sees endo Anemia1 Pt is mildly ane yaz. Pt hs low iron. Pt denies any GI blood loss. 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 Pt decides to go to see oncologist at [facility] Pt will start chemo soon. Pt already seen the physician at [facility] DM Pt has DM. Pt ta kes amaryl and also metfomrin and januvia. Pt takes lantus 40 units at night. Pt states that he sees endrinology 4 months ago. Pt denies any polyuria, polydipsia HTN Pt has HTN. 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 Pt takes livalo, metoprolol and hydralazine. Pt sees cardiology. Pt denies any chest pain colon CA Pt recently suff ered acute bowel perforation due to colon tumor. Pt just had colectomy two weeks ago at [facility]. Pt is seeing surgeon now. Pt has been feel very anxious and panic attacks since the diagnosis of colon CA. Pt states that he feels sometimes anxouis and unable to breath due to his anxiety Pt denies any chest pain. Pt deneis any leg pain. Pt feels slighlty depressed also. Pt denies any suicidal or homicdial thought. Instructions Date Instruction Additional Infor mation Increase physical activity Relat ed to Pain in left hand Special diet education Related t o Body mass index (BMI) 33.0-33.9, adult Special diet education Related t o Body mass index (BMI) 33.0-33.9, adult Increase physical activity Relat ed to Encounter for general adult medical exam w abnormal findings Prescribed Diet Educ ation/Lifestyle Education Regarding Diet Related to Dietary Surveillance and Counseling Prescribed Activity and Exercise Education Related to Dietary Surveillance and Counseling Assessments Type Assessment Date No Information
--- OUTSIDE RECORDS SUMMARY | 2024-09-05 14:40 | XMS_ITS | Encounter Summary ---
Author Organization [facility] Address [address] [place] [address] Phone Care Team Providers Care Molasses And Caramel Operator Name Role Phone Marcella Taylor MD Unavailable Anselmo Sampson MD Primary Care Provider [phone] Encounter Details Date Type Department Care Team (Latest Contact Info) Description 04/03/2024 Orders Only [facility] Scanning, Provider Social History Tobacco Use Types Packs/Day Years Used Date Smoking Tobacco: Former Cigarettes 1.5 14 1 967 - 1980 Smokeless Tobacco: Never AUDIT-C Answer Date Recorded Q1: How often do you have a drink containing alcohol? Never 03/02/2023 Q2: How many drinks containi ng alcohol do you have on a typical day when you are drinking? Patient does not drink Frequency of Binge Drinking Not on file 02/04 Personal Safety Answer Date Recorded Have you ever been in or are you currently in a harmful physical or emotional relationship or is someone making you feel afraid or unsafe? 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 Operating Room [address] [place] [address] Godfrey Villarreal MD [address] [facility] [address] [place] [address] 09/20/2024 7:30 AM CDT - 09/20/2024 10:40 AM CDT Surgery [facility] Operating Room [address] [place] [address] Godfrey Villarreal MD [address] [facility] [address] [place] [address] CREATION ARTERIOVENOUS FISTULA - ARM Scheduled Procedures Name Priority Associated Diagnoses Date/Ti me CREATION ARTERIOVENOUS FISTULA - ARM ESRD (end stage renal disease) on dialysis (HCC) 09/20/2024 7:30 AM CDT documented as of this encounter Procedures Procedure Name Priority Date/Time Associated Diagnosis Comments SCAN - LABS 04/03/2024 documented in this encounter Results * SCAN - LABS (04/03/2024) us Provider Scanning Final Result documented in this encounter Visit Diagnoses Not on filedocumented in this encounter Additional Health Concerns Infection Onset Date Last Indicated Resolved Time COVID: Suspected 07/09/2024 07/09/2024 07/09/2024 11:36 AM TANNERY WORKER COVID: Suspected 07/09/2024 07/09/2024 07/09/2024 4:05 PM TANNERY WORKER documented as of this encounter Care Teams Molasses And Caramel Operator Relationship Specialty [place] [address] [address] PCP - General Family Practice 04/26/22 Marcella Taylor MD [address] [place] [address] [address] [place] [address] Medical Oncologist/Layer Up Medical Oncology 08/08/20 documented as of this encounter
--- OUTSIDE RECORDS SUMMARY | 2024-09-05 14:40 | XMS_ITS | Encounter Summary ---
Author Organization [facility] Address [address] [facility] [address] [place] [address] Phone Care Team Providers Care Senior Education Specialist Name Role Phone Gerard Mo MD Primary Care Provider [phone] Marcella Taylor MD Unavailable Anselmo Sampson MD Primary Care Provider [phone] Encounter Details Date Type Department Care Team (Latest Contact Info) Description 08/09/2018 Orders Only [facility] Scanning, Provider Social History Tobacco Use Types Packs/Day Years Used Date Smoking Tobacco: Former Smokeless Tobacco: Never Sex and Gender Information Value Date Recorded Sex Assigned at Not on file 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 Gender Identity Not on file Sexual Orientation Not on file documented as of this encounter Plan of Treatment Upcoming Encounters Date Type Department Care Team (Latest Contact Info) Description 09/20/2024 7:30 AM CDT Hospital Encounter [facility] Operating Room [address] [place] [id number] Godfrey Villarreal MD [address] [facility] [address] [place] [address] 09/20/2024 7:30 AM CDT - 09/20/2024 10:40 AM CDT Surgery [facility] Operating Room [address] [place] [address] Godfrey Villarreal MD [address] [facility] [address] [place] [address] CREATION ARTERIOVENOUS FISTULA - ARM Scheduled Procedures Name Priority Associated Diagnoses Date/Ti me CREATION ARTERIOVENOUS FISTULA - ARM ESRD (end stage renal disease) on dialysis (HCC) 09/20/2024 7:30 AM CDT documented as of this encounter Procedures Procedure Name Priority Date/Time Associated Diagnosis Comments SCAN - LABS 08/09/2018 documented in this encounter Results * SCAN - LABS (08/09/2018) us Provider Scanning Final Result documented in this encounter Visit Diagnoses Not on filedocumented in this encounter Additional Health Concerns Infection Onset Date Last Indicated Resolved Time COVID: Suspected 10/09/2023 10/09/2023 10/09/2023 2:41 PM CDT COVID: Suspected 07/09/2024 07/09/2024 07/09/2024 11:36 AM FERRYBOAT OPERATOR COVID: Suspected 07/09/2024 07/09/2024 07/09/2024 4:05 PM FERRYBOAT OPERATOR documented as of this encounter Care Teams Senior Education Specialist Relationship Specialty Start Date End Date Gerard Mo MD PCP - General 11/01/17 04/25/22 [place] [address] [address] PCP - General Family Practice 04/26/22 Marcella Taylor MD [address] [place] [address] [address] [place] [address] Medical Oncologist/Executive Coordinator Medical Oncology 08/08/20 documented as of this encounter
--- OUTSIDE RECORDS SUMMARY | 2024-09-05 14:40 | XMS_ITS | Clinical Summary ---
Author Organization [facility] Address [address] [place] [address] Care Team Providers Care Director Home Health Name Role Phone Leonidas Banks MD, Robert Unavailable [phone] Justa Bueno [facility]- Unavailable Anselmo Sampson MD Primary Care Provider [phone] Allergies No known active allergies Medications aspirin 81 MG tablet Take 1 tablet (81 mg total) by mouth daily. Active Coenzyme Q-10 100 MG Cap Take 2 capsules (200 mg total) by mouth daily. Active Cholecalciferol (VITAMIN D3) 2000 units Tab Take 3 tablets (150 mcg total) by mouth daily. Active calcium-magnesi um-zinc 333-133-5 MG Tab Take by mouth 2 (two) times daily. 2 by mouth in morning and 1 by mouth in the evening Active ONE TOUCH ULTRA TEST STRIPS test strip 3 (three) times daily. 0 Active B-D ULTRAFINE III SHORT PEN 31G X 8 MM Misc 9 Active Lancets (ONETOUCH ULTRASOFT) lancets 2 (two) times daily. 9 Active cyanocobalamin (B-12) 1000 MCG/ML injection every 30 (thirty) days. 2 Active furosemide (LASIX) 40 MG tablet Take 1 tablet (40 mg total) by mouth daily. 3 Active cetirizine (ZYRTEC) 10 MG tablet Take 1 tablet (10 mg total) by mouth daily as needed. Active FIASP FLEXTOUCH 100 UNIT/ML injection (PEN) INJECT 4 UNITS 3 TIMES A DAY BY SUBCUTANEOUS ROUTE BEFORE MEALS FOR 90 DAYS. Active TRESIBA FLEXTOUCH 100 UNIT/ML Solution Pen-injector injection Inject 8 Units into the skin nightly at bedtime. Active Pitavastatin Calcium (LIVALO) 4 MG Tab Take 1 tablet by mouth daily. 90 tablet 3 4 Active losartan (COZAAR) 50 MG tablet Take 1 tablet (50 mg total) by mouth daily. Active carvedilol (COREG) 25 MG tablet TAKE 1 TABLET TWICE DAILY 180 tablet 2 4 Active vitamin D2, ergocalciferol, (DRISDOL) 1.25 mg capsule Take 1 capsule (1.25 mg total) by mouth every 7 days. 4 Active Ripretinib 50 MG Tab Take 50 mg by mouth daily. 4 Active colesevelam (WELCHOL) 625 MG tablet Take 1 tablet (625 mg total) by mouth 2 (two) times daily with meals. 180 tablet 1 4 Active Active Problems Problem Noted Date Diagnosed Date Chronic heart failure with p reserved ejection fraction (HFpEF) ([facility]) 01/16/2023 Assessment & Plan (01/16/2023 9:55 AM CDT): Likely require some daily dosing of the loop diuretic. Due to his low GFR he will not likely tolerate an aldosterone antagonist or an SGLT2 inhibitor. Contact his lumber bearer for the dosing schedule as this has been somewhat tenuous lately but I would suspect a dose of furosemide of around 40 mg daily would be suspected. 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), malignant, 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 Overview (03/10/2022): Added automatically from request for surgery [id number] Dehydration 01/24/2019 Viral infection 01/24/2019 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, malignant ([facility]) 07/07/2016 Acute upper respiratory infection 06/23/2015 Overview (03/10/2022): Date Onset: 06/23/2015 Chronic obstructive pulmonary disease ([facility]) 07/15/2011 Diabetes mellitus, type II ([facility]) 03/2012 Hyperlipidemia 07/15/2011 CAD (coronary artery disease) Assessment & Plan (01/16/2023 9:55 AM CDT): The patient remains asymptomatic from any symptoms of angina or heart failure. He will continue with aggressive secondary risk factor modification. HTN (hypertension) CRI (chronic renal insufficiency) Dyslipidemia PVD (peripheral vascular disease) Encounters Date Type Department Care Team Description 07/24/2024 Telephone [facility] [address] [place] [address] Justa Bueno, ANP-BC Called To Cancel Office Appt. 07/14/2024 Scan Skulpt INFO SRVCS Scanned, Doc [facility] 07/11/2024 11:21 AM DISH MAKER - 07/11/2024 11:59 PM DISH MAKER Hospital Encounter [facility] [address] [place] [address] Laura Orozco MD Discharge Disposition: Home or Self Care (Routine Discharge) 07/11/2024 11:20 AM DISH MAKER Hospital Encounter [facility] Diagnostic Imaging [address] [facility] [place] [address] Laura Orozco MD Discharge Disposition: Home or Self Care (Routine Discharge) 07/11/2024 Orders Only [facility] [address] [place] [address] Laura Orozco MD 07/11/2024 Travel from Last 3 Months Immunizations Name Administration Dates Next Due Fluzone High Dose - >Age 65 (Prefilled Syringe) 03/01/2019 Influenza Adult (Generic) 03/03/2022,03/09/2020, 03/01/2019 PFIZER COVID-19 (ORIGINAL FO RMULATION, PURPLE CAP) mRNA, LNP-S, PF, 30 MCG/0.3 ML DOSE 07/17/2020,07/15/2020,06/24/2020 Pneumococcal (Pneumovax 23) 03/09/2020 Pneumococcal (Prevnar 13) 08/09/2018 Family History Relation Status Comments Father Mother Social History Tobacco Use Types Packs/Day Years Used Date Smoking Tobacco: Former Cigarettes Q uit: 1970 Passive Smoke Exposure: Past Smokeless Tobacco: Never Tobacco Cessation:Counseling Given: No Alcohol Use Standard Drinks/Week Comments No 0 (1 standard drink = 0.6 oz pur e alcohol) PHQ-2 Answer Date Recorded Patient Health Questionnaire-2 Score 0 10/17/2022 Sex and Gender Information Value Date Recorded Sex Assigned at Male 07/11/2024 11:20 AM DISH MAKER Legal Sex Male 5:54 PM CDT Gender Identity Male 04/25/2022 6:03 AM DISH MAKER Sexual Orientation Not on file Occupation Industry Job Start Date Job End Date Retired Not on file Not on file Not on file Last Filed Vital Signs Vital Sign Reading Time Taken Comments Blood Pressure 162/71 04/05/2024 10:07 AM CDT Pulse 51 04/05/2024 10:07 AM CDT Temperature 36.2 C (97.2 F) 04/05/2024 10:07 AM CDT Respiratory Rate 18 04/05/2024 10:07 AM CDT Oxygen Saturation 98% 04/05/2024 10:07 AM CDT Inhaled Oxygen Concentration - - Weight 90.8 kg (200 lb 3.2 oz) 04/05/2024 10:07 AM CDT Height 174.6 cm (5' 8.75 ) 04/05/2024 10:07 AM C DT Body Mass Index 29.78 04/05/2024 10:07 AM CDT Plan of Treatment Upcoming Encounters Date Type Department Care Team (Late st Contact Info) Description 09/30/2024 2:15 PM CDT Office Visit [facility] [place] [address] Andrea Palomares MD [facility] [address] [place] [address] Health Maintenance Due Date Last Done Comments DTaP, Tdap and Td Vaccines (1 - Tdap) 1964 Zoster Vaccines (1 of 2) 10/03/1995 Annual Medicare Wellness Visit 2010 PHQ-2 (Physician Downey) 06/05/2024 10/17/2022 COVID-19 Vaccine ( season) 2024 04/03/2024, 02/23/2023, 02/17/2022, Additional history exists Hemoglobin A1C 01/08/2025 07/11/2024, 10/2023, 03/18/2023, Additional history exists Lipid Panel 03/09/2025 03/09/2024, 03/05, 11/16/2022, Additional history exists Diabetes: Retinopathy Eye Exam 06/14/2025 06/14/2023 Pneumococcal Vaccine: 65+ Years Completed 03/09/2020, 08/09/2018 RSV Immunization or 60+ Years Completed 03/16/2023 Hepatitis C Completed 07/12/2024 Meningococcal B Vaccine Aged Out No l onger eligible based on patient's age to complete this topic Meningococcal Vaccine Aged Out No mindy carol eligible based on patient's age to complete this topic RSV Immunizations Under 20 Months Aged Out No longer eligible based on patient's age to complete this topic Procedures Procedure Name Priority Date/Time Associated Diagnosis Comments XR CHEST PA+LAT Routine 07/11/2024 11:50 AM DISH MAKER Chronic kidney disease, stage 5 (CMS/HCC HHS/HCC) PROTHROMBIN TIME, VENOUS Routine 07/11/2024 11:28 AM DISH MAKER CKD stage 5 secondary to hypertension (CMS/HCC HHS/HCC) HEPATITIS B SURFACE AG, EIA Routine 07/11/2024 11:28 AM DISH MAKER CKD stage 5 secondary to hypertension (CMS/HCC HHS/HCC) HEPATITIS B SURFACE ANTIBODY Routine 07/11/2024 11:28 AM DISH MAKER CKD stage 5 secondary to hypertension (CMS/HCC HHS/HCC) HEPATITIS B CORE ANTIBODY Routine 07/11/2024 11:28 AM DISH MAKER CKD stage 5 secondary to hypertension (CMS/HCC HHS/HCC) HEALTH FAIR WITH LIPID Routine 03/09/2024 12:30 AM CDT HEMOGLOBIN, GLYCOSYLATED Routine 03/09/2024 12:30 AM CDT DIABETIC RETINOPATHY EXAM (NEGATIVE)(SCAN ORDER) Routine 06/14/2023 from Last 3 Months or Most Recently Relevant to Health Maintenance Results * XR CHEST PA+LAT (07/11/2024 11:50 AM DISH MAKER) Anatomical Region Laterality Modality Chest Computed Tomogra phy 07/11/2024 11:5 5 AM DISH MAKER Impressions 07/11/2024 11:56 AM DISH MAKER IMPRESSION: No acute findings Ordered By: LAURA OROZCO Interpreted By: Toni Forbes MD, 07/11/2024 11:55 AM Narrative 07/11/2024 11:56 AM DISH MAKER [address] [place] [address] 2 VIEWS OF THE CHEST Clinical history: Chronic kidney disease Comparison: March 12, 2016 2 views of the chest demonstrate borderline cardiomegaly which is stable. Sternotomy changes are again noted. The pulmonary vessels appear normal. The Lungs are clear. No consolidations or effusions are seen. Procedure Note Toni Forbes MD - 07/11/[address] [place] [address] 2 VIEWS OF THE CHEST Clinical history: Chronic kidney disease Comparison: March 12, 2016 2 views of the chest demonstrate borderline cardiomegaly which is stable.Sternotomy changes are again noted. The pulmonary vessels appear normal.The Lungs are clear. No consolidations or effusions are seen. IMPRESSION: No acute findings Ordered By: LAURA OROZCO Interpreted By: Toni Forbes MD, 07/11/2024 11:55 AM Laura Orozco MD GENERAL IMAGING Final Result * PROTIME/INR, VENOUS (07/11/2024 11:28 AM DISH MAKER) Pathologist [facility] PROTIME 12.5 9.4 - 12.5 SEC 07/11/2024 11:48 AM DISH MAKER [facility] INR 1.1 0.9 - 1.1 07/11/2024 11:48 AM DISH MAKER [facility] Comment: Recommended INR Therapeutic Goals: 2.0-3.0 Routine Therapy 2.5-3.5 Mechanical Prosthetic Valves (High Risk) 07/11/2024 11:2 8 AM DISH MAKER Laura Orozco MD LABORATORY Final Result [facility] [address] [place] [address], [place] * HEPATITIS B SURFACE AG, EIA (07/11/2024 11:28 AM DISH MAKER) Pathologist [facility] HEPATITIS B SURFACE AG NON-REACTI VE NON-REACTI VE 07/11/2024 7:45 PM DISH MAKER [facility] 07/11/2024 11:2 8 AM DISH MAKER Laura Orozco MD LABORATORY Final Result [facility] [address] [place] [address], * HEPATITIS B SURFACE ANTIBODY (07/11/2024 11:28 AM DISH MAKER) Pathologist [facility] HEP B SURFACE AB NON-REACTI VE 07/11/2024 10:27 PM DISH MAKER [facility] 07/11/2024 11:2 8 AM DISH MAKER us Laura Orozco MD LABORATORY Final Result [facility] [address] [place] [address], [place] [phone] * HEPATITIS B CORE ANTIBODY (07/11/2024 11:28 AM DISH MAKER) Pathologist [facility] HEP B CORE TOTAL AB NON-REACTI VE NON-REACTI VE 07/11/2024 8:13 PM DISH MAKER [facility] 07/11/2024 11:2 8 AM DISH MAKER us Laura Orozco MD LABORATORY Final Result Performing Organization Address [facility] Co de Phone Number [facility] [address] [place] [address], [place] [phone] * (ABNORMAL) HEALTH FAIR WITH LIPID (03/09/2024 12:30 AM CDT) Pathologist [facility] WBC 9.48 4.4 - 11.0 x10'3/uL 03/09/2024 11:07 AM CDT [facility] RBC 4.28(L) 4.50 - 5.90 x10'6/uL 03/09/2024 11:07 AM CDT [facility] HGB 11.1(L) 14.0 - 17.5 G/DL 03/09/2024 11:07 AM CDT [facility] HCT 37.1(L) 41.5 - 50.4 % 03/09/2024 11:07 AM CDT [facility] MCV 86.7 80.0 - 96.0 FL 03/09/2024 11:07 AM [facility] MCH 25.9(L) 26.5 - 31.4 PG 03/09/2024 11:07 AM T [facility] MCHC 29.9(L) 31.9 - 34.8 G/DL 03/09/2024 11:07 AM T [facility] RDW 16.5(H) 12.3 - 14.3 % 03/09/2024 11:07 AM T [facility] PLT 218 151 - 353 x10'3/uL 03/09/2024 11:07 AM [facility] MPV 12.5(H) 9.7 - 11.9 FL 03/09/2024 11:07 AM [facility] RBC MORPHOLOGY NORMAL 03/09/2024 11:07 AM [facility] PLT MORPH. NORMAL 03/09/2024 11:07 AM [facility] WBC MORPHOLOGY NORMAL 03/09/2024 11:07 AM [facility] LYMPHOCYTES % 10.1(L) 15.8 - 45.0 % 03/09/2024 11:07 AM [facility] NEUTROPHILS % 77.4(H) 42.1 - 71.9 % 03/09/2024 11:07 AM [facility] MONOCYTES % 6.6 5.7 - 12.5 % 03/09/2024 11:07 AM [facility] EOSINOPHILS 4.4 0.0 - 5.6 % 03/09/2024 11:07 AM [facility] BASOPHILS 1.1 0.0 - 1.3 % 03/09/2024 11:07 AM [facility] ABS. NEUTROPHILS 7.33(H) 1.40 - 6.00 x10'3/uL 03/09/2024 11:07 AM [facility] IMMATURE GRANS % 0.4 0.0 - 0.5 % 03/09/2024 11:07 AM [facility] ABS. LYMPHOCYTES 0.96 0.80 - 4.70 x10'3/uL 03/09/2024 11:07 AM [facility] GLUCOSE 170(H) 70 - 99 MG/DL 03/09/2024 1:29 PM [facility] BUN 64(H) 7 - 18 MG/DL 03/09/2024 1:29 PM [facility] CREATININE S/P/B 4.92(H) 0.7 - 1.3 MG/DL 03/09/2024 1:29 PM [facility] SODIUM S/P/B 140 136 - 145 MMOL/L 03/09/2024 1:29 PM [facility] POTASSIUM S/P/B 5.3(H) 3.5 - 5.1 MMOL/L 03/09/2024 1:29 PM [facility] CHLORIDE S/P/B 108 100 - 108 MMOL/L 03/09/2024 1:29 PM [facility] CO2 20.4(L) 21 - 32 MMOL/L 03/09/2024 1:29 PM [facility] CALCIUM S/P/B 8.1(L) 8.5 - 10.1 MG/DL 03/09/2024 1:29 PM [facility] BILIRUBIN TOTAL S/P/B 1.1 0.2 - 1.2 MG/DL 03/09/2024 1:29 PM [facility] TOTAL PROTEIN S/P/B 6.0(L) 6.4 - 8.2 G/DL 03/09/2024 1:29 PM [facility] ALBUMIN S/P/B 2.8(L) 3.4 - 5.0 G/DL 03/09/2024 1:29 PM [facility] AST 21 15 - 37 U/L 03/09/2024 1:29 PM [facility] ALT 16 16 - 60 U/L 03/09/2024 1:29 PM [facility] ALKALINE PHOSPHATASE S/P/B 84 50 - 136 U/L 03/09/2024 1:29 PM [facility] ANION GAP 11.6 5 - 15 MMOL/L 03/09/2024 1:29 PM [facility] BUN CREATININE RATIO 13.0 6 - 26 03/09/2024 1:29 PM [facility] A/G RATIO 0.9(L) 1.0 - 2.0 RATIO 03/09/2024 1:29 PM [facility] GFR ESTIMATE 11(L) >90 ML/MIN/1. 73 M2 03/09/2024 1:29 PM [facility] Comment: NOTE: eGFR is not calculated for patients <18 years of age. This is an estimated GFR calculation using the new CKD EPI creatinine equation without race and so does not require a correction factor for race. This estimated GFR should not be used for calculating drug doses. TSH 2.951 0.358 - 3.74 uIU/ML 03/09/2024 1:29 PM [facility] Comment: HIGH DOSES OF BIOTIN MAY INTERFERE WITH THIS TEST RESULT. CORRELATION TO CLINICAL HISTORY AND PRESENTATION RECOMMENDED. CHOLESTEROL 105 <200.0 MG/DL 03/09/2024 1:29 PM [facility] TRIGLYCERIDES 67 <150 MG/DL 03/09/2024 1:29 PM [facility] HDL 37(L) >40.0 MG/DL 03/09/2024 1:29 PM CDT [facility] LDL (CALCULATED) 55 <100 MG/DL 03/09/2024 1:29 PM CDT [facility] NON HDL CHOLESTEROL 68 <130 MG/DL 03/09/2024 1:29 PM T [facility] CHOL/HDL RATIO 2.8 0.0 - 4.5 03/09/2024 1:29 PM T [facility] VLDL CALCULATION 13 5 - 55 MG/DL 03/09/2024 1:29 PM T [facility] LIPID INTERPRETATION 03/09/2024 1:29 PM T [facility] Comment: [facility] REPORT RECOMMENDATIONS: ADULT CHILD LOW RISK: CHOLESTEROL <200 <170 TRIGLYCERIDE <150 --- HDL >=60 --- LDL <100 <110 BORDERLINE: CHOLESTEROL 200-239 170-199 TRIGLYCERIDE 150-199 --- HDL 40-59 --- LDL 100-159 110-129 HIGH RISK: CHOLESTEROL >=240 >=200 TRIGLYCERIDE >=200 --- HDL <40 --- LDL >=160 >=130 03/09/2024 12:3 0 AM CDT Douglas Rosario MD LABORATORY Final Result Performing Organization Address [facility] [[email or web address]] de Phone Number [facility] [address] [place] [address], * DIABETIC RETINOPATHY EXAM (NEGATIVE) (06/14/2023) us [facility] Scanned SCANNING Final Resu lt Performing Organization Address City/[facility] Co de Phone Number [facility] from Last 3 Months or Most Recently Relevant to Health Maintenance Insurance MEDICARE MEDICARE Advance Directives Documents on File Type Date Recorded Patient Director Of Sports Performance Expl anation Advance Directives and Living Will 04/17/2017 10:06 AM [facility] - Justa Payton - 09/27/2006 Care Teams Director Home Health Relationship Specialty Start [place] [address] [place] [address] PCP - General FAMILY PRACTICE 03/08/22 Anselmo Lauren MD CARDIOVASCULAR DISEASE 01/18/17 Justa Bueno, [facility]- [address] [facility] [address] [address] NURSE PRACTITIONER 01/18/17
--- OUTSIDE RECORDS SUMMARY | 2024-09-05 14:40 | XMS_ITS | Clinical Summary ---
Author Organization [facility] Address [address] [place] [address] Care Team Providers Care Javascript Application Developer Name Role Phone Marcella Taylor MD Unavailable Anselmo Sampson MD Primary Care Provider [phone] Allergies No known active allergies Medications cholecalciferol [...] (two) times a day with meals Active fekoceo-guwxjmpnf-ag nc 333-133-5 mg tabletIndications:Vi tamin Deficiency Prevention Take 1 tablet by mouth every morning Active amLODIPine (NORVASC) 10 mg tablet Take 1 tablet (10 mg total) by mouth daily 90 tablet 2 023 Active Additional Information Patient taking differently:10 mg oralEvery morning, Indications: hypertension, Informant: Self, Reported on 09/02/2024 blood-glucose meter kitIndications:Type 2 diabetes mellitus with hypoglycemia without coma, with long-term current use of insulin (HCC) Use daily or as directed for monitoring [...] with long-term current use of insulin (HCC) Check blood sugar 3 times daily 200 [...] with long-term current use of insulin (HCC) Inject 0.06 mL (6 Units total) under the skin nightly 15 mL 2 Active Additional Information Patient taking differently:6 Units subcutaneous Nightly,Indications: type 2 diabetes mellitus, Informant: Self, Reported on 09/02/2024 BD Ultra-Fine Mini Pen Needle 31 gauge x 3/16 needle 1 each 4 (four) times a day before meals and nightly 400 each 3 Active hydrALAZINE (APRESOLINE) 25 mg tabletIndications:hy pertension [...] 07/11/2024 Assessment & Plan (07/14/2024 9:38 AM MACHINE GRAINER): Patient has had progression of CKD to now ESRD needing dialysis initiation given c/f uremia symptoms. Directly admitted per renal. Underwent tunneled dialysis catheter by IR on 07/12 and received HD on 07/12 and 07/13 -Hemodialysis as per Nephrology -Continue home bicarb URI (upper respiratory infection) 07/11/2024 Assessment & Plan (07/12/2024 12:59 PM MACHINE GRAINER): Suspected viral. COVID/flu/RSV neg 07/09. CXR neg 07/10. Was prescribed azithromycin on 07/09 which he took for 3 days. Will not continued further -Supportive care Hypomagnesemia 01/02/2024 CKD (chronic kidney disease) stage 4, GFR 15-29 ml/min 04/16/2023 Assessment & Plan (07/25/2023 10:06 AM MACHINE GRAINER): Chronic problem. Managed by Dr Flores. Has f/u appt at end of the month. Assessment & Plan (04/16/2023 8:48 PM MACHINE GRAINER): Chronic, stable Following with Biology Faculty Member Acute kidney injury 02/24/2023 (HFpEF) heart failure with preserved ejection fr action 02/24/2023 Assessment & Plan (02/24/2023 3:38 PM CDT): TTE with EF 77% and at least grade 1 diastolic dysfunction (indeterminate on last TTE). Not in exacerbation -Cont home lasix 40mg -strict I&Os, daily weights -F/u with [facility] [employer] Department Chair Dr. Payton CAD (coronary artery disease) 02/24/2023 Assessment & Plan (02/24/2023 3:38 PM CDT): S/p prior 5v CABG in 2012 -Cont statin and coreg -Intolerant of PATI-I/ARB due to worsening renal function -ASA held due to procedure -F/u with Cardiology outpatient Hyperlipidemia associated with type 2 diabetes aimee ulloa 02/24/2023 Assessment & Plan (07/11/2024 9:32 PM MACHINE GRAINER): -Continue home welchol -Atorvastatin for home pitavastatin (non-formulary) Assessment & Plan (05/13/2024 9:10 AM MACHINE GRAINER): Continue statin therapy Assessment & Plan (11/16/2023 11:18 AM CDT): Chronic problem. Currently taking Pitavatatin 4mg daily. Last lipid panel: 02/24/23 LDL=76, AN=663. Assessment & Plan (07/25/2023 10:22 AM MACHINE GRAINER): Chronic problem. Currently taking Pitavatatin 4mg daily. Last lipid panel: 02/24/23 LDL=76, VU=305. Assessment & Plan (04/16/2023 8:46 PM MACHINE GRAINER): On Pitavastatin therapy Tolerating well Assessment & Plan (02/24/2023 3:39 PM CDT): Cont statin and colesevelam Type 2 diabetes mellitus wit h stage 4 chronic kidney disease, with long-term current use of insulin 02/24/2023 Assessment & Plan (07/11/2024 9:31 PM MACHINE GRAINER): F/b endo. Home regimen: tresiba 5U QHS, aspart 6-8U TID with meals Pt/ report issues with hypoglycemia lately at home. -Will start with SSI for now; titrate/add scheduled insulin pending glucose trends Assessment & Plan (05/13/2024 9:10 AM MACHINE GRAINER): Chronic, uncontrolled, worsening Hemoglobin A1c 6.8 A1c [...] soon Daily foot care Advise to call [employer] and get the dexcom G 6 sensor to switch to G7 Check labs today Follow-up in 6 months Assessment & Plan (11/16/2023 11:17 AM CDT): Chronic problem. A1c stable at 6.1% but having overnight lows & occasionally lows after LN. Call your supply [employer] to switch from Dexcom G6 to Dexcom G7. Lower tresiba to 6 units nightly. If you notice that your over night readings are too high--start to increase by 1 unit weekly until they return to normal. If you're eating a enamel dipper lunch--drop the Fiasp to 6 units. Current medications: Tresiba 6 units at bedtime Fiasp 4 units with breakfast & dinner, 8 units with lunch (6 units if enamel dipper lunch) If blood sugar is between 151-200, add 1 units. If blood sugar is between 201-250, add 2 units. If blood sugar is between 251-300, add 3 units. If blood sugar is between 301-350, add 4 units. UTD on DM eye exam (06/15/23 at [facility]). UTD on labs. Discussed with José Luis [...] infection. Assessment & Plan (07/25/2023 10:02 AM MACHINE GRAINER): Chronic problem. A1c stable at 6.1% but having overnight lows & occasionally lows after LN. Call your supply company to switch from Dexcom G6 to Dexcom G7. Lower tresiba to 6 units nightly. If you notice that your over night readings are too high--start to increase by 1 unit weekly until they return to normal. If you're eating a enamel dipper lunch--drop the Fiasp to 6 units. Current medications: Tresiba 6 units at bedtime Fiasp 4 units with breakfast & dinner, 8 units with lunch (6 units if enamel dipper lunch) If blood sugar is between 151-200, add 1 units. If blood sugar is between 201-250, add 2 units. If blood sugar is between 251-300, add 3 units. If blood sugar is between 301-350, add 4 units. DM eye exam 06/2023 at [facility]. Letter sent to get copy of report. [...] infection. 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 Controlled on current Carvedilol 25mg bid, amlodipine 10mg daily, lasix 20mg daily. not taking hydralazine currently Assessment & Plan (07/25/2023 10:05 AM MACHINE GRAINER): Chronic problem. Controlled on current Carvedilol 25mg bid, amlodipine 10mg daily, lasix 20mg daily. 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 Overview (08/14/2020): Added automatically from request for surgery [id number] Assessment & Plan (07/14/2024 9:38 AM MACHINE GRAINER): Pt of Dr Taylor -Holding home ripretinib [...] kidney injury) 02/24/2023 Viral infection 01/24/2019 11/15/2023 Encounters Date Type Department Care Team Description 08/27/2024 Telephone [facility] Surgery [address] Floor [address] [place] [address] Godfrey Villarreal MD 08/26/2024 Telephone [facility] Surgery [address] [place] [address] Godfrey Villarreal MD 08/14/2024 12:00 PM CDT Office Visit [facility] Oncology [address] [place] [phone] Marcella Taylor MD GIST (gastrointestinal stroma tumor), malignant, colon (HCC) (Primary Dx); 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) 08/14/2024 11:30 AM CDT Lab [address] [address] GIST (gastrointestinal stroma tumor), malignant, colon (HCC); 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) 08/12/2024 9:45 AM CDT Office Visit [facility] Vascular Surgery [address] [place] [address] Medical Office Building [address] [place] [phone] Godfrey Villarreal MD ESRD (end stage renal disease) (HCC) (Primary Dx) 08/12/2024 8:45 AM CDT Ancillary Procedure [facility]ascular Lab Vascular Surgery [address] [place] [address] [address], [address] [place] [address] ESRD (end stage renal disease) (HCC) 08/12/2024 Orders Only [facility] Oncology [address] [place] [phone] Gamble, Thera A. 08/12/2024 Telephone [facility] Oncology [address] [place] [phone] Gamble, Thera A. 07/31/2024 Orders Only [facility] Oncology [address] [place] [address] Jose Antonio Gamble. 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 07/15/2024 Orders Only [facility] Surgery [address] [facility] 8th [place] [address] [place] [address] Godfrey Villarreal MD ESRD (end stage renal disease) (HCC) (Primary Dx) 07/14/2024 Orders Only Nephrology Do Flores MD ESRD (end stage renal disease) (HCC) (Primary Dx) 07/11/2024 6:19 PM MACHINE GRAINER - 07/14/2024 1:13 PM MACHINE GRAINER Hospital Encounter [address] [address] Marcella Taylor MD Kumar, Amrat, MD Type 2 diabetes mellitus with hypoglycemia without coma, with long-term current use of insulin (HCC) Discharge Disposition: Discharge to home or self care 07/11/2024 Orders Only [facility] Scanning, Provider 07/11/2024 Documentation Nephrology Do Flores MD 07/10/2024 Documentation [facility] Division of Nephrology [address] [place] [address] [address] [place] [address] Sachin Rousseau RN 07/09/2024 11:52 AM MACHINE GRAINER - 07/09/2024 11:59 PM MACHINE GRAINER Hospital Encounter [address] [address] Acute viral syndrome Discharge Disposition: Discharge to home or self care 07/09/2024 10:45 AM MACHINE GRAINER Office Visit [facility] Medical Group [facility] Care at [address] [address] Manjula Gonzalez NP Acute viral syndrome (Primary Dx) 07/05/2024 Telephone [facility] Nephrology [address] [facility] 5th [place] [address] [place] [phone] Do Flores MD cortisone shot 07/04/2024 Telephone [facility] Nephrology [facility] [address] [facility] [address] [place] [phone] Do Flores MD Dialysis Planning 07/03/2024 1:30 PM MACHINE GRAINER Infusion [address] [phone] Anemia due to stage 3 chronic kidney disease, unspecified whether stage 3a or 3b CKD (HCC) (Primary Dx); GIST (gastrointestinal stroma tumor), malignant, colon (HCC); 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) 07/03/2024 12:45 PM MACHINE GRAINER Office Visit [facility] Oncology [address] [place] [phone] Marcella Taylor MD 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) (Primary Dx); GIST (gastrointestinal stroma tumor), malignant, colon (HCC) 07/03/2024 12:15 PM MACHINE GRAINER Lab [address] [address] GIST (gastrointestinal stroma tumor), malignant, colon (HCC); 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) 06/17/2024 Telephone [facility] Oncology [address] [place] [address] Adali Haji RN from Last 3 Months Immunizations Immunization Administration Dates Next Due Influenza, Trivalent, High D ose, Split, Preservative Free, Intramuscular 03/03/2022,03/09/2020,03/01/2019 Pfizer SARS-CoV-2 Monovalent Vaccination (12+ Yrs) PURPLE 07/15/2020,06/24/2020 Pfizer Sars-Cov-2 Bivalent V accination (12+ YRS) 02/17/2022 Pneumococcal Conjugate PCV 13 08/09/2018 Pneumococcal Polysaccharide PPV23 03/09/2020 Surgical History Surgery Date Site/Laterality Comments US GUIDED BIOPSY ABDOMEN RETROPERITONEAL 07/29/2020 N/A SMALL BOWEL RESECTION 08/18/2020 Ruptured stromal tumor CORONARY ARTERY BYPASS GRAFT 10/09/2012 5 vessel US GUIDED BIOPSY RENAL 02/24/2023 N/A TUNNELED LINE PLACEMENT > 5 YEARS 07/12/2024 N/A CARDIAC STENT PLACEMENT Sometime before bypass surgery CARDIAC CATHETERIZATION 10/08/2012 Medical History Medical History Date Comments Type 2 diabetes mellitus (HCC) Hypertension Hyperlipidemia Coronary artery disease Peripheral vascular disease Renal insufficiency Dialysis Tue / Thur/ Sat in [place], [place] [facility] (HCC) Anemia Heart failure (HCC) Family History Medical History Relation Name Comments Colon cancer Father Colon cancer - (Added by TW Conv) Coronary artery disease Father Diabetes Father Hypertension Father Stroke Father Coronary artery disease Mother CAD (coronary artery disease) - (Added by TW Conv) Relation Name Status Comments Father Mother Social [...] on file Legal Sex Male 6:14 AM MACHINE GRAINER Gender Identity Not on file Sexual Orientation Not on file Obstetrics History Last Filed Vital Signs Vital Sign Reading [...] 09/20/2024 7:30 AM CDT Hospital Encounter [facility] Operating Room 1 [place] [phone] Godfrey Villarreal MD [address] [place] [address] 09/20/2024 7:30 AM CDT - 09/20/2024 10:40 AM CDT Surgery [facility] Operating Room [address] [place] [phone] Godfrey Villarreal MD [address] [place] [address] CREATION ARTERIOVENOUS FISTULA - ARM Scheduled Procedures Name Priority Associated Diagnoses Date/Ti me CREATION ARTERIOVENOUS FISTULA - ARM ESRD (end stage renal disease) on dialysis (HCC) 09/20/2024 7:30 AM CDT Health Maintenance Due Date Last Done Comments Depression Screening 1945 Hepatitis C Screening 1945 DTaP/Tdap/Td Vaccine (1 - Tdap) 1956 Hepatitis B Screening 10/03/1963 Zoster Vaccine (1 of 2) 1964 Well Visit 65+ 2010 Dilated Eye Exam 06/15/2024 06/15/2023, 06/2018, 09/03/2018 Covid-19 Vaccine (8 - Pfizer risk season) 2024 04/03/2024, 02/23/2023, 02/17/2022, Additional history exists Hemoglobin A1C 01/08/2025 07/11/2024, 02/2024, 11/16/2023, Additional history exists Albumin Creatinine Ratio, Urine 05/13/2025 Foot Exam 05/13/2025 05/13/2024, 04/12/2023 Lipid Panel 05/13/2025 05/13/2024, 02/04, 11/16/2022, Additional history exists Fall Risk Assessment 07/14/2025 07/14/2024 eGFR 08/14/2025 08/14/2024, 02/2025, 07/13/2024, Additional history exists Pneumococcal vaccine 65+ Completed 03/09/2020, 12/2018 Abdominal Aortic Aneurysm (A AA) Screen Completed 12/14/2023, 01/18/2017, 01/18/2017, Additional history exists Influenza Vaccine Completed 04/03/2024, , 03/03/2022, Additional history exists Medical Devices Implanted Type Area [employer] Device Identifier Shelf Expiration Date Model / Serial / Lot Stent- 8 [facility]:04[facility] (Quantity not on file) Stent Heart Description:1.5 or 3 Nazia N ormal Mode Scan 15 rest 5 [employer] Duraflow Embosafe 15.5fr 28cm Basic 2 Lumen Kit Catheter [id number] - [id number] Implanted:Qty: 1 on 07/12/2024 at [facility] [employer] 08/02/2026 [id number] / / [id number] Procedures Procedure Name Priority Date/Time Associated Diagnosis [...] GLUCOSE DEVICE Routine 07/14/2024 1 1:06 AM MACHINE GRAINER POCT GLUCOSE DEVICE Routine 07/14/2024 7 :08 AM MACHINE GRAINER EGFR Routine 07/14/2024 2:11 AM MACHINE GRAINER DIFFERENTIAL AUTO Routine 07/14/2024 2:1 1 AM MACHINE GRAINER CBC WITH AUTO DIFFERENTIAL Routine 07/14/2024 2:11 AM MACHINE GRAINER COMPREHENSIVE METABOLIC PANEL Routine 07/14/2024 2:11 AM MACHINE GRAINER POCT GLUCOSE DEVICE Routine 07/13/2024 9 :08 PM MACHINE GRAINER POCT GLUCOSE DEVICE Routine 07/13/2024 5 :34 PM MACHINE GRAINER POCT GLUCOSE DEVICE Routine 07/13/2024 1 1:53 AM MACHINE GRAINER POCT GLUCOSE DEVICE Routine 07/13/2024 7 :10 AM MACHINE GRAINER EGFR Routine 07/13/2024 1:56 AM MACHINE GRAINER DIFFERENTIAL AUTO Routine 07/13/2024 1:5 6 AM MACHINE GRAINER CBC WITH AUTO DIFFERENTIAL Routine 07/13/2024 1:56 AM MACHINE GRAINER COMPREHENSIVE METABOLIC PANEL Routine 07/13/2024 1:56 AM MACHINE GRAINER HEMODIALYSIS Routine 07/12/2024 9:17 PM MACHINE GRAINER POCT GLUCOSE DEVICE Routine 07/12/2024 7 :26 PM MACHINE GRAINER POCT GLUCOSE DEVICE Routine 07/12/2024 5 :11 PM MACHINE GRAINER HEPATITIS B SURFACE ANTIGEN STAT 07/12/2024 4:33 PM MACHINE GRAINER POCT GLUCOSE DEVICE Routine 07/12/2024 1 2:23 PM MACHINE GRAINER TUNNELED LINE PLACEMENT > 5 YEARS IP Routine 07/12/2024 9:17 AM MACHINE GRAINER POCT GLUCOSE DEVICE Routine 07/12/2024 7 :15 AM MACHINE GRAINER POCT GLUCOSE DEVICE Routine 07/12/2024 4 :37 AM MACHINE GRAINER HEMODIALYSIS Routine 07/11/2024 9:26 PM MACHINE GRAINER HEMOGLOBIN A1C Timed 07/11/2024 9:14 PM MACHINE GRAINER IRON PROFILE W/ IBC Timed 07/11/2024 9 :14 PM MACHINE GRAINER EGFR Timed 07/11/2024 9:14 PM MACHINE GRAINER FERRITIN Timed 07/11/2024 9:14 PM MACHINE GRAINER DIFFERENTIAL AUTO Timed 07/11/2024 9:1 4 PM MACHINE GRAINER TYPE AND SCREEN STAT 07/11/2024 9:14 PM MACHINE GRAINER PHOSPHORUS Timed 07/11/2024 9:14 PM MACHINE GRAINER MAGNESIUM Timed 07/11/2024 9:14 PM MACHINE GRAINER COMPREHENSIVE METABOLIC PANEL Timed 07/11/2024 9:14 PM MACHINE GRAINER CBC WITH AUTO DIFFERENTIAL Timed 07/11/2024 9:14 PM MACHINE GRAINER POCT GLUCOSE DEVICE Routine 07/11/2024 7 :32 PM MACHINE GRAINER SCAN - LABS 07/11/2024 INFLUENZA A/B, RSV, AND COVID-19 PCR Routine 07/09/2024 11:52 AM MACHINE GRAINER Acute viral syndrome POC INFLUENZA A/B, COVID-19 ANTIGEN Routine 07/09/2024 11:34 AM MACHINE GRAINER Acute viral syndrome EGFR STAT 07/03/2024 12:19 PM MACHINE GRAINER GIST (gastrointestinal stroma tumor), malignant, 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) DIFFERENTIAL AUTO STAT 07/03/2024 12: 19 PM MACHINE GRAINER GIST (gastrointestinal stroma tumor), malignant, 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) CBC WITH AUTO DIFFERENTIAL STAT 07/03/2024 12:19 PM MACHINE GRAINER GIST (gastrointestinal stroma tumor), malignant, 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) COMPREHENSIVE METABOLIC PANEL STAT 07/03/2024 12:19 PM MACHINE GRAINER GIST (gastrointestinal stroma tumor), malignant, 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) LACTATE DEHYDROGENASE STAT 07/03/2024 12:19 PM MACHINE GRAINER GIST (gastrointestinal stroma tumor), malignant, 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) PET/CT FDG SKULL TO THIGH Schedule Routine, Read Routine (OP Routine) 06/27/2024 9:08 AM MACHINE GRAINER GIST (gastrointestinal stroma tumor), malignant, 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) LIPID PANEL Routine 05/13/2024 9:16 AM MACHINE GRAINER Type 2 diabetes mellitus with stage 4 chronic kidney disease, with long-term current use of insulin (HCC) Hyperlipidemia associated with type 2 diabetes mellitus (HCC) ALBUMIN CREATININE RATIO, URINE Routine 05/13/2024 9:16 AM MACHINE GRAINER Type 2 diabetes mellitus with stage 4 [...] CDT 08/14/2024 11:18 AM CDT us Marcella Tayolr MD LAB BLOOD ORDERABLES Final Resul t [facility] Department [place] [address] * (ABNORMAL) Differential, auto (08/14/2024 11:18 AM CDT) Pathologist [facility] Neutrophil abs 7.7(H) 1.5 - 6.5 K/cumm Comment:Testing performed by : [facility], [address] [place] [id number] Imm gran abs 0.1 0.0 - 0.1 K/cumm [facility] Lymphocyte abs 2.0 0.8 - 3.3 K/cumm [facility] Monocyte abs 0.8 0.2 - 0.8 K/cumm [facility] Eosinophil abs 0.4 0.0 - 0.5 K/cumm [facility] Basophil abs 0.1 0.0 - 0.1 K/cumm [facility] Neutrophil pct 69.7 % [facility] Comment: Interpretive Data Percent cell count reference ranges are not reported, since discordance with absolute values may lead to misinterpretation of CBC data. Current Interpretive Data was last revised on 2017. Imm gran pct 0.5 % [facility] Comment: Interpretive Data Percent cell count reference [...] on 2017. Monocyte pct 7.6 % [facility] Comment: Interpretive Data Percent cell count reference ranges are not reported, since discordance with absolute values may lead to misinterpretation of CBC data. Current Interpretive Data was last revised on 2017. Eosinophil pct 3.6 % [facility] Comment: Interpretive Data Percent cell count reference ranges are not reported, since discordance with absolute values may lead to misinterpretation of CBC data. Current Interpretive Data was last revised on 2017. Basophil pct 0.7 % [facility] Comment: Interpretive Data Percent cell count reference ranges are not reported, since discordance with absolute values may lead to misinterpretation of CBC data. Current Interpretive Data was last revised on 2017. Blood 08/14/2024 11:1 8 AM CDT 08/14/2024 11:18 AM CDT us Marcella Taylor MD LAB BLOOD ORDERABLES Final Resul t [facility] [address] [facility] Department [place] [address] * (ABNORMAL) CBC with auto differential (08/14/2024 11:18 AM CDT) WBC 11.0(H) 3.8 - 9.9 K/cumm Comment:Testing performed by : [facility], [address] [place] [id number] Hgb 10.3(L) 13.0 - 17.5 g/dL PITA BARGER Comment:Testing performed by : [facility], [address] [place] [id number] Hct 32.1(L) 38.9 - 50.3 % [facility] Comment:Testing performed by : [facility], [address] [place] [id number] Plt 187 150 - 400 K/cumm [facility] Comment:Testing performed by : [facility], [address] [place] [id number] MPV 9.6 9.1 - 12.3 fL [facility] RBC 3.88(L) 4.30 - 5.80 M/cumm [facility] MCV 82.7 81.3 - 96.4 fL [facility] MCH 26.5(L) 27.1 - 33.3 pg [facility] MCHC 32.1(L) 32.3 - 35.7 g/dL [facility] RDW CV 17.1(H) 11.1 - 14.9 % [facility] RDW SD 51.6(H) 35.7 - 48.1 fL [facility] NRBC abs 0.00 0.00 - 0.01 K/cumm [facility] Blood 08/14/2024 11:1 8 AM CDT 08/14/2024 11:18 AM CDT Marcella Taylor MD LAB BLOOD ORDERABLES Final Resul t Performing Organization Address [facility] de Phone Number [facility] Department [place] [address] * (ABNORMAL) Lactate dehydrogenase (LD) (08/14/2024 11:18 AM CDT) Lactate dehydrogenase (LDH) 343(H) 100 - 250 Units/L Comment:Testing performed by : [facility], [address] [place] [id number] Blood 08/14/2024 11:1 8 AM CDT 08/14/2024 11:18 AM CDT us Marcella Taylor MD LAB BLOOD ORDERABLES Final Resul t Performing Organization Address City/[facility] Co de Phone Number [facility] Department [place] [address] * (ABNORMAL) Comprehensive metabolic panel (08/14/2024 11:18 AM CDT) Sodium 142 135 - 145 mmol/L Comment:Testing performed by : [facility], [address] [place] [id number] Potassium, pl 4.7 3.3 - 4.9 mmol/L [facility] Chloride 107 97 - 110 mmol/L [facility] CO2 27 22 - 32 mmol/L [facility] Anion gap 8 2 - 15 mmol/L [facility] BUN 41(H) 6 - 25 mg/dL [facility] Creatinine 5.63(H) 0.80 - 1.30 mg/dL [facility] Glucose 170 70 - 199 mg/dL [facility] Comment: Interpretive Data Fasting glucose >/= 126 [...] 2022. Calcium 8.0(L) 8.5 - 10.3 mg/dL [facility] Bilirubin, total 0.5 0.1 - 1.2 mg/dL [facility] Protein, pl 6.5 6.5 - 8.5 g/dL [facility] Albumin 3.6 3.5 - 5.0 g/dL [facility] Alk phos 83 40 - 130 Units/L [facility] ALT 11 7 - 55 Units/L [facility] AST 22 10 - 50 Units/L [facility] Blood 08/14/2024 11:1 8 AM CDT 08/14/2024 11:18 AM CDT us Marcella Taylor MD LAB BLOOD ORDERABLES Final Resul t PITA [facility] Department [place] [address] * US Vein Mapping Fistula Access, Bilateral (08/12/2024 9:16 AM CDT) Anatomical Region Laterality Modality Vascular Bilateral Ultrasound 08/12/2024 7:00 AM CDT Narrative 08/12/2024 12:47 PM CDT [facility] - Department of Vascular Surgery, Vascular Laboratory [address] [place] [id number] Upper Extremity Vein Mapping Report Patient Name: JOSÉ LUIS GAMBLE : 1945 (78y 10m) Study Date: 08/12/2024 7:00:58 AM Gender: M Industrial Education Teacher: GONZALO Location: [facility] Provider: GODFREY VILLARREAL Quality: Adequate Order Provider: [...] Value Units Left Value Units FINDINGS: Performing Industrial Education Teacher: Jayda Dunn RVT. Bilateral: Venous Doppler signals [...] above. Electronically Signed By: Josias Cox MD [facility] [phone] 08/12/2024 12:46:53 PM CDT Procedure Note Josias Cox MD - 08/12/2024 [facility] - Department of Vascular Surgery,Vascular Laboratory [address] [place] [address] Upper Extremity Vein Mapping Report Patient Name: JOSÉ LUIS GAMBLE : 1945 (78y 10m) Study Date: 08/12/2024 7:00:58 AM Gender: M Industrial Education Teacher: GONZALO Location: [facility] Provider: GODFREY VILLARREAL Quality: Adequate Order Provider: [...] Value Units Left Value Units FINDINGS: Performing Industrial Education Teacher: Jayda Dunn RVT. Bilateral: Venous Doppler signals [...] above. Electronically Signed By: Josias Cox MD [facility] [phone] 08/12/2024 12:46:53 PM CDT us Godfrey Villarreal MD IMG US PROCEDURES Final R esult * SCAN - LABS (08/08/2024) us Provider Scanning Final Result * (ABNORMAL) POCT glucose (07/14/2024 11:06 AM MACHINE GRAINER) Glucose, POC 215(H) 70 - 199 mg/dL Blood 07/14/2024 11:0 6 AM MACHINE GRAINER 07/14/2024 11:06 AM MACHINE GRAINER us Rex Reid MD LAB POCT ORDERABLES - DEVICE Fin al Result Performing Organization Address City/[facility]/ZIP Co de Phone Number [facility] Department [place] [address] * POCT glucose (07/14/2024 7:08 AM MACHINE GRAINER) Pathologist [facility] Glucose, POC 151 70 - 199 mg/dL Blood 07/14/2024 7:08 AM MACHINE GRAINER 07/14/2024 7:08 AM MACHINE GRAINER us Rex Reid MD LAB POCT ORDERABLES - DEVICE Fin al Result Performing Organization Address City/[facility]/ZIP Co de Phone Number [facility] Department [place] [address] * (ABNORMAL) eGFR (07/14/2024 2:11 AM MACHINE GRAINER) Pathologist [facility] eGFR 11(L) >=60 mL/min/1. 73 m2 Comment: [...] of Race in Diagnosing Kidney Disease, JASN 202). The CKD-EPI equation should not be used for patients with unstable renal function and has not been validated in children and those over 70. Current interpretive data was last reviewed 2021. Blood 07/14/2024 2:11 AM MACHINE GRAINER 07/14/2024 4:35 AM MACHINE GRAINER us Coco Batres MD LAB BLOOD ORDERABLES Final Re sult [facility] Department [place] [address] * Differential, auto (07/14/2024 2:11 AM MACHINE GRAINER) Neutrophil abs 5.3 1.5 - 6.5 K/cumm Imm gran abs 0.1 0.0 - 0.1 K/cumm [facility] Lymphocyte abs 2.0 0.8 - 3.3 K/cumm [facility] Monocyte abs 0.8 0.2 - 0.8 K/cumm [facility] Eosinophil abs 0.4 0.0 - 0.5 K/cumm [facility] Basophil abs 0.1 0.0 - 0.1 K/cumm [facility] Neutrophil pct 61.0 % [facility] Comment: Interpretive Data Percent cell count reference ranges are not reported, since discordance with absolute values may lead to misinterpretation of CBC data. Current Interpretive Data was last revised on 2017. Imm gran pct 0.9 % [facility] Comment: Interpretive Data Percent cell count reference ranges are not reported, since discordance with absolute values may lead to misinterpretation of CBC data. Current Interpretive Data was last revised on 2017. Lymphocyte pct 22.8 % [facility] Comment: Interpretive Data Percent cell count reference ranges are not reported, since discordance with absolute values may lead to misinterpretation of CBC data. Current Interpretive Data was last revised on 2017. Monocyte pct 9.6 % [facility] Comment: Interpretive Data Percent cell count reference ranges are not reported, since discordance with absolute values may lead to misinterpretation of CBC data. Current Interpretive Data was last revised on 2017. Eosinophil pct 5.0 % [facility] Comment: Interpretive Data Percent cell count reference ranges are not reported, since discordance with absolute values may lead to misinterpretation of CBC data. Current Interpretive Data was last revised on 2017. Basophil pct 0.7 % [facility] Comment: Interpretive Data Percent cell count reference ranges are not reported, since discordance with absolute values may lead to misinterpretation of CBC data. Current Interpretive Data was last revised on 2017. Blood 07/14/2024 2:11 AM MACHINE GRAINER 07/14/2024 4:35 AM MACHINE GRAINER us Coco Batres MD LAB BLOOD ORDERABLES Final Re sult [facility] Department [place] [address] * (ABNORMAL) CBC with auto differential (07/14/2024 2:11 AM MACHINE GRAINER) WBC 8.7 3.8 - 9.9 K/cumm Hgb 9.3(L) 13.0 - 17.5 g/dL [facility] Hct 30.1(L) 38.9 - 50.3 % [facility] Plt 184 150 - 400 K/cumm [facility] MPV 10.6 9.1 - 12.3 fL [facility] RBC 3.66(L) 4.30 - 5.80 M/cumm [facility] MCV 82.2 81.3 - 96.4 fL [facility] MCH 25.4(L) 27.1 - 33.3 pg [facility] MCHC 30.9(L) 32.3 - 35.7 g/dL [facility] RDW CV 16.7(H) 11.1 - 14.9 % [facility] RDW SD 49.9(H) 35.7 - 48.1 fL [facility] NRBC abs 0.00 0.00 - 0.01 K/cumm [facility] Blood 07/14/2024 2:11 AM MACHINE GRAINER 07/14/2024 4:35 AM MACHINE GRAINER us Coco Batres MD LAB BLOOD ORDERABLES Final Re sult [facility] Department [place] [address] * (ABNORMAL) Comprehensive metabolic panel (07/14/2024 2:11 AM MACHINE GRAINER) Sodium 139 135 - 145 mmol/L Potassium, pl 3.9 3.3 - 4.9 mmol/L [facility] Chloride 104 97 - 110 mmol/L [facility] CO2 24 22 - 32 mmol/L [facility] Anion gap 11 2 - 15 mmol/L [facility] BUN 36(H) 6 - 25 mg/dL [facility] Creatinine 4.95(H) 0.80 - 1.30 mg/dL [facility] Glucose 150 70 - 199 mg/dL [facility] Comment: Interpretive Data Fasting glucose >/= 126 [...] 2022. Calcium 7.3(L) 8.5 - 10.3 mg/dL [facility] Bilirubin, total 0.7 0.1 - 1.2 mg/dL [facility] Protein, pl 5.6(L) 6.5 - 8.5 g/dL [facility] Albumin 2.9(L) 3.5 - 5.0 g/dL [facility] Alk phos 76 40 - 130 Units/L [facility] ALT 9 7 - 55 Units/L [facility] AST 24 10 - 50 Units/L [facility] Blood 07/14/2024 2:11 AM MACHINE GRAINER 07/14/2024 4:35 AM MACHINE GRAINER us Coco Batres MD LAB BLOOD ORDERABLES Final Re sult Performing Organization Address [facility] de Phone Number [facility] [place] [address] * (ABNORMAL) POCT glucose (07/13/2024 9:08 PM MACHINE GRAINER) Glucose, POC 256(H) 70 - 199 mg/dL Blood 07/13/2024 9:08 PM MACHINE GRAINER 07/13/2024 9:08 PM MACHINE GRAINER us Rex Reid MD LAB POCT ORDERABLES - DEVICE Fin al Result Performing Organization Address [facility] de Phone Number [facility] Department [place] [address] * POCT glucose (07/13/2024 5:34 PM MACHINE GRAINER) Glucose, POC 119 70 - 199 mg/dL Blood 07/13/2024 5:34 PM MACHINE GRAINER 07/13/2024 5:34 PM MACHINE GRAINER us Rex Reid MD LAB POCT ORDERABLES - DEVICE Fin al Result Performing Organization Address [facility] de Phone Number [facility] [place] [address] * (ABNORMAL) POCT glucose (07/13/2024 11:53 AM MACHINE GRAINER) Glucose, POC 242(H) 70 - 199 mg/dL Blood 07/13/2024 11:5 3 AM MACHINE GRAINER 07/13/2024 11:53 AM MACHINE GRAINER us Rex Reid MD LAB POCT ORDERABLES - DEVICE Fin al Result Performing Organization Address [facility] de Phone Number [facility] [place] [address] * POCT glucose (07/13/2024 7:10 AM MACHINE GRAINER) Glucose, POC 163 70 - 199 mg/dL Blood 07/13/2024 7:10 AM MACHINE GRAINER 07/13/2024 7:10 AM MACHINE GRAINER us Rex Reid MD LAB POCT ORDERABLES - DEVICE Fin al Result Performing Organization Address [facility] de Phone Number PITA [facility] [place] [address] * (ABNORMAL) eGFR (07/13/2024 1:56 AM MACHINE GRAINER) eGFR 8(L) >=60 mL/min/1. 73 m2 Comment: [...] last reviewed 2021. Blood 07/13/2024 1:56 AM MACHINE GRAINER 07/13/2024 2:12 AM MACHINE GRAINER us Coco Batres MD LAB BLOOD ORDERABLES Final Re sult Performing Organization Address [facility] Co de Phone Number PITA [facility] Department [place] [address] * Differential, auto (07/13/2024 1:56 AM MACHINE GRAINER) Neutrophil abs 6.2 1.5 - 6.5 K/cumm Imm gran abs 0.1 0.0 - 0.1 K/cumm [facility] Lymphocyte abs 2.0 0.8 - 3.3 K/cumm [facility] Monocyte abs 0.8 0.2 - 0.8 K/cumm [facility] Eosinophil abs 0.4 0.0 - 0.5 K/cumm [facility] Basophil abs 0.1 0.0 - 0.1 K/cumm [facility] Neutrophil pct 65.9 % [facility] Comment: Interpretive Data Percent cell count reference ranges are not reported, since discordance with absolute values may lead to misinterpretation of CBC data. Current Interpretive Data was last revised on 2017. Imm gran pct 0.5 % [facility] Comment: Interpretive Data Percent cell count reference ranges are not reported, since discordance with absolute values may lead to misinterpretation of CBC data. Current Interpretive Data was last revised on 2017. Lymphocyte pct 20.6 % [facility] Comment: Interpretive Data Percent cell count reference ranges are not reported, since discordance with absolute values may lead to misinterpretation of CBC data. Current Interpretive Data was last revised on 2017. Monocyte pct 8.4 % [facility] Comment: Interpretive Data Percent cell count reference ranges are not reported, since discordance with absolute values may lead to misinterpretation of CBC data. Current Interpretive Data was last revised on 2017. Eosinophil pct 4.0 % [facility] Comment: Interpretive Data Percent cell count reference ranges are not reported, since discordance with absolute values may lead to misinterpretation of CBC data. Current Interpretive Data was last revised on 2017. Basophil pct 0.6 % [facility] Comment: Interpretive Data Percent cell count reference ranges are not reported, since discordance with absolute values may lead to misinterpretation of CBC data. Current Interpretive Data was last revised on 2017. Blood 07/13/2024 1:56 AM MACHINE GRAINER 07/13/2024 2:12 AM MACHINE GRAINER Coco Batres MD LAB BLOOD ORDERABLES Final Re sult Performing Organization Address [facility] Co de Phone Number [facility] Department [place] [address] * (ABNORMAL) CBC with auto differential (07/13/2024 1:56 AM MACHINE GRAINER) [facility] WBC 9.5 3.8 - 9.9 K/cumm Hgb 9.1(L) 13.0 - 17.5 g/dL [facility] Hct 28.6(L) 38.9 - 50.3 % [facility] Plt 197 150 - 400 K/cumm [facility] MPV 9.9 9.1 - 12.3 fL [facility] RBC 3.48(L) 4.30 - 5.80 M/cumm [facility] MCV 82.2 81.3 - 96.4 fL [facility] MCH 26.1(L) 27.1 - 33.3 pg [facility] MCHC 31.8(L) 32.3 - 35.7 g/dL [facility] RDW CV 16.8(H) 11.1 - 14.9 % [facility] RDW SD 49.9(H) 35.7 - 48.1 fL [facility] NRBC abs 0.00 0.00 - 0.01 K/cumm [facility] Blood 07/13/2024 1:56 AM MACHINE GRAINER 07/13/2024 2:12 AM MACHINE GRAINER Coco Batres MD LAB BLOOD ORDERABLES Final Re sult Performing Organization Address City/[facility]/ZIP Co de Phone Number [facility] [place] [address] * (ABNORMAL) Comprehensive metabolic panel (07/13/2024 1:56 AM MACHINE GRAINER) [facility] Sodium 141 135 - 145 mmol/L Potassium, pl 4.2 3.3 - 4.9 mmol/L [facility] Chloride 105 97 - 110 mmol/L [facility] CO2 25 22 - 32 mmol/L [facility] Anion gap 11 2 - 15 mmol/L [facility] BUN 54(H) 6 - 25 mg/dL [facility] Creatinine 6.35(H) 0.80 - 1.30 mg/dL [facility] Glucose 128 70 - 199 mg/dL [facility] Comment: Interpretive Data Fasting glucose >/= 126 [...] 2022. Calcium 7.2(L) 8.5 - 10.3 mg/dL [facility] Bilirubin, total 0.7 0.1 - 1.2 mg/dL [facility] Protein, pl 5.7(L) 6.5 - 8.5 g/dL [facility] Albumin 3.0(L) 3.5 - 5.0 g/dL [facility] Alk phos 72 40 - 130 Units/L [facility] ALT 11 7 - 55 Units/L [facility] AST 37 10 - 50 Units/L [facility] Blood 07/13/2024 1:56 AM MACHINE GRAINER 07/13/2024 2:12 AM MACHINE GRAINER us Coco Batres MD LAB BLOOD ORDERABLES Final Re sult [facility] [place] [address] * (ABNORMAL) POCT glucose (07/12/2024 7:26 PM MACHINE GRAINER) Glucose, POC 203(H) 70 - 199 mg/dL Blood 07/12/2024 7:26 PM MACHINE GRAINER 07/12/2024 7:26 PM MACHINE GRAINER us Rex Reid MD LAB POCT ORDERABLES - DEVICE Fin al Result Performing Organization Address [facility] Phone Number [facility] [place] [address] * POCT glucose (07/12/2024 5:11 PM MACHINE GRAINER) Pathologist [facility] Glucose, POC 163 70 - 199 mg/dL Blood 07/12/2024 5:11 PM MACHINE GRAINER 07/12/2024 5:11 PM MACHINE GRAINER us Rex Reid MD LAB POCT ORDERABLES - DEVICE Fin al Result Performing Organization Address [facility] Phone Number [facility] Department [place] [address] * Hepatitis B Surface Antigen Blood (07/12/2024 4:33 PM MACHINE GRAINER) [facility] HepBsAg Nonreactive Nonreactive Blood 07/12/2024 4:33 PM MACHINE GRAINER 07/12/2024 5:34 PM MACHINE GRAINER us Kavitha Logan MD LAB MICROBIOLOGY - GENERAL ORDERABLES Final Result Performing Organization Address [facility] de Phone Number [facility] [place] [address] * (ABNORMAL) POCT glucose (07/12/2024 12:23 PM MACHINE GRAINER) Glucose, POC 286(H) 70 - 199 mg/dL Blood 07/12/2024 12:2 3 PM MACHINE GRAINER 07/12/2024 12:23 PM MACHINE GRAINER us Rex Reid MD LAB POCT ORDERABLES - DEVICE Fin al Result [facility] Department [place] [address] * IR Tunneled Line Placement > 5 Years (07/12/2024 9:17 AM MACHINE GRAINER) Anatomical Region Laterality Modality Body N/A Radio Fluoroscop y 07/12/2024 9:45 AM MACHINE GRAINER Impressions 07/12/2024 9:45 AM MACHINE GRAINER Successful tunneled 19 cm tip to cuff Duraflow catheter catheter placement via the right internal jugular vein. PLAN: The catheter is ready for immediate use. When treatment is completed, removal can be scheduled by calling [facility] - [phone] [facility] - [phone] Electronically signed by: Shamika Chambers PA-C Narrative 07/12/2024 9:45 AM MACHINE GRAINER EXAMINATION: TUNNELED CENTRAL VENOUS CATHETER PLACEMENT USING ULTRASOUND GUIDANCE HISTORY/INDICATION: 78-year-old male with history of chronic kidney disease stage V who was directly admitted by nephrology for initiation of dialysis. Interventional radiology has been consulted for placement of a tunneled hemodialysis catheter placement. 2/6 creatinine was 8.69; Potassium was 4.6; Hemoglobin was 8.6. He is on DVT prophylactic heparin subcutaneous. PROVIDER PRESENCE: Shamika Chambers PA-C was present from the beginning to the end of the procedure. SEDATION: Conscious sedation was used for the procedure. TECHNIQUE: The risks, benefits and alternatives were discussed and informed consent was obtained. Prior to beginning the procedure, [place] Protocol was used to confirm the patient's [...] placement of a tunneled hemodialysis catheter placement. 2/6 creatinine was 8.69; Potassium was 4.6; Hemoglobin was 8.6. He is on DVT prophylactic heparin subcutaneous. PROVIDER PRESENCE: Shamika Chambers PA-C was present from the beginning to the end of the procedure. SEDATION: Conscious sedation was used for the procedure. TECHNIQUE: The risks, benefits and alternatives were discussed and informed consent was obtained. Prior to beginning the procedure, [place] Protocol was used to confirm the patient's [...] completed, removal can be scheduled by calling [facility] - [phone] [facility] - [phone] Electronically signed by: Shamika Chambers PA-C us Coco Batres MD IMG IR PROCEDURES Final Resul t * POCT glucose (07/12/2024 7:15 AM MACHINE GRAINER) Glucose, POC 158 70 - 199 mg/dL Blood 07/12/2024 7:15 AM MACHINE GRAINER 07/12/2024 7:15 AM MACHINE GRAINER us Rex Reid MD LAB POCT ORDERABLES - DEVICE Fin al Result Performing Organization Address [facility] Co de Phone Number PITA [facility] [place] [address] * POCT glucose (07/12/2024 4:37 AM MACHINE GRAINER) Glucose, POC 175 70 - 199 mg/dL Blood 07/12/2024 4:37 AM MACHINE GRAINER 07/12/2024 4:37 AM MACHINE GRAINER us Rex Reid MD LAB POCT ORDERABLES - DEVICE Fin al Result Performing Organization Address City/[facility]/ZIP Co de Phone Number [facility] [place] [address] * (ABNORMAL) eGFR (07/11/2024 9:14 PM MACHINE GRAINER) Pathologist [facility] eGFR 6(L) >=60 mL/min/1. 73 m2 Comment: [...] last reviewed 2021. Blood 07/11/2024 9:14 PM MACHINE GRAINER 07/11/2024 9:25 PM MACHINE GRAINER us Coco Batres MD LAB BLOOD ORDERABLES Final Re sult Performing Organization Address [facility] de Phone Number [facility] [place] [address] * Differential, auto (07/11/2024 9:14 PM MACHINE GRAINER) Pathologist [facility] Neutrophil abs 4.3 1.5 - 6.5 K/cumm Imm gran abs 0.0 0.0 - 0.1 K/cumm [facility] Lymphocyte abs 1.4 0.8 - 3.3 K/cumm [facility] Monocyte abs 0.8 0.2 - 0.8 K/cumm [facility] Eosinophil abs 0.3 0.0 - 0.5 K/cumm [facility] Basophil abs 0.1 0.0 - 0.1 K/cumm [facility] Neutrophil pct 62.2 % [facility] Comment: Interpretive Data Percent cell count reference ranges are not reported, since discordance with absolute values may lead to misinterpretation of CBC data. Current Interpretive Data was last revised on 2017. Imm gran pct 0.6 % [facility] Comment: Interpretive Data Percent cell count reference ranges are not reported, since discordance with absolute values may lead to misinterpretation of CBC data. Current Interpretive Data was last revised on 2017. Lymphocyte pct 20.4 % [facility] Comment: Interpretive Data Percent cell count reference ranges are not reported, since discordance with absolute values may lead to misinterpretation of CBC data. Current Interpretive Data was last revised on 2017. Monocyte pct 11.1 % [facility] Comment: Interpretive Data Percent cell count reference ranges are not reported, since discordance with absolute values may lead to misinterpretation of CBC data. Current Interpretive Data was last revised on 2017. Eosinophil pct 5.0 % [facility] Comment: Interpretive Data Percent cell count reference ranges are not reported, since discordance with absolute values may lead to misinterpretation of CBC data. Current Interpretive Data was last revised on 2017. Basophil pct 0.7 % [facility] Comment: Interpretive Data Percent cell count reference ranges are not reported, since discordance with absolute values may lead to misinterpretation of CBC data. Current Interpretive Data was last revised on 2017. Blood 07/11/2024 9:14 PM MACHINE GRAINER 07/11/2024 9:26 PM MACHINE GRAINER us Coco Batres MD LAB BLOOD ORDERABLES Final Re sult PITA [facility]GER [facility] [place] [address] * (ABNORMAL) Iron profile w/ IBC (07/11/2024 9:14 PM MACHINE GRAINER) Iron 28(L) 50 - 150 mcg/dL TIBC 133(L) 250 - 400 mcg/dL [facility] Transferrin saturation 21 20 - 50 % [facility] Blood 07/11/2024 9:14 PM MACHINE GRAINER 07/11/2024 9:25 PM MACHINE GRAINER us Marcella Taylor MD LAB BLOOD ORDERABLES Final Resul t Performing Organization Address [facility]/ZIP Co de Phone Number [facility] [place] [place] [address] * (ABNORMAL) CBC with auto differential (07/11/2024 9:14 PM MACHINE GRAINER) [facility] WBC 6.9 3.8 - 9.9 K/cumm Hgb 8.6(L) 13.0 - 17.5 g/dL [facility] Hct 28.3(L) 38.9 - 50.3 % [facility] Plt 199 150 - 400 K/cumm [facility] MPV 10.5 9.1 - 12.3 fL [facility] RBC 3.39(L) 4.30 - 5.80 M/cumm [facility] MCV 83.5 81.3 - 96.4 fL [facility] MCH 25.4(L) 27.1 - 33.3 pg [facility] MCHC 30.4(L) 32.3 - 35.7 g/dL [facility] RDW CV 17.1(H) 11.1 - 14.9 % [facility] RDW SD 51.2(H) 35.7 - 48.1 fL [facility] NRBC abs 0.00 0.00 - 0.01 K/cumm [facility] Blood 07/11/2024 9:14 PM MACHINE GRAINER 07/11/2024 9:26 PM MACHINE GRAINER us Coco Batres MD LAB BLOOD ORDERABLES Final Re sult Performing Organization Address City/[facility]/ZIP Co de Phone Number [facility] [place] [address] * Type and screen (07/11/2024 9:14 PM MACHINE GRAINER) [facility] Aide, indirect Negative ABO Rh O Positive [facility] Blood 07/11/2024 9:14 PM MACHINE GRAINER 07/11/2024 9:51 PM MACHINE GRAINER Narrative [facility] - 07/11/2024 10:40 PM MACHINE GRAINER Has the patient had Daratumumab or Isatuximab in the past 6 months?->Unknown Coco Batres MD LAB BLOOD BANK TEST ORDERABLE S Final Result Performing Organization Address [facility] Co de Phone Number [facility] Department [place] [address] * (ABNORMAL) Phosphorus (07/11/2024 9:14 PM MACHINE GRAINER) [facility] Phosphorus, pl 7.0(H) 2.3 - 4.5 mg/dL Blood 07/11/2024 9:14 PM MACHINE GRAINER 07/11/2024 9:25 PM MACHINE GRAINER Coco Batres MD LAB BLOOD ORDERABLES Final Re sult Performing Organization Address [facility] Co de Phone Number [facility] Department [place] [address] * Magnesium (07/11/2024 9:14 PM MACHINE GRAINER) [facility] Magnesium 2.5 1.4 - 2.5 mg/dL Blood 07/11/2024 9:14 PM MACHINE GRAINER 07/11/2024 9:25 PM MACHINE GRAINER Coco Batres MD LAB BLOOD ORDERABLES Final Re sult Performing Organization Address [facility] Co de Phone Number [facility] Department [place] [address] * (ABNORMAL) Hemoglobin A1c (07/11/2024 9:14 PM MACHINE GRAINER) [facility] Hgb A1C 6.3(H) 4.0 - 5.6 % Estimated Average Glucose 134 mg/dL [facility] Comment: The ADA recommends reporting an estimated Average Glucose (eAG) with all Hemoglobin A1c results using the equation derived from a study of 507 normal and diabetic adults. Minority populations were underrepresented and children were not included. (Diabetes Care 2020; 43(S1): S66-S76). The eAG is not equivalent to a fasting glucose. Blood 07/11/2024 9:14 PM MACHINE GRAINER 07/11/2024 9:39 PM MACHINE GRAINER Narrative [facility] - 07/12/2024 8:23 AM MACHINE GRAINER Reflex Rex Reid MD LAB BLOOD ORDERABLES Final Resul t Performing Organization Address [facility] Co de Phone Number [facility] Department [place] [address] * Ferritin (07/11/2024 9:14 PM MACHINE GRAINER) [facility] Ferritin 77 30 - 400 ng/mL Blood 07/11/2024 9:14 PM MACHINE GRAINER 07/11/2024 9:25 PM MACHINE GRAINER us Marcella Taylor MD LAB BLOOD ORDERABLES Final Resul t Performing Organization Address [facility] de Phone Number [facility] Department [place] [address] * (ABNORMAL) Comprehensive metabolic panel (07/11/2024 9:14 PM MACHINE GRAINER) [facility] Sodium 137 135 - 145 mmol/L Potassium, pl 4.6 3.3 - 4.9 mmol/L [facility] Chloride 104 97 - 110 mmol/L [facility] CO2 21(L) 22 - 32 mmol/L [facility] Anion gap 12 2 - 15 mmol/L [facility] BUN 72(H) 6 - 25 mg/dL [facility] Creatinine 8.69(H) 0.80 - 1.30 mg/dL [facility] Glucose 214(H) 70 - 199 mg/dL [facility] Comment: Interpretive Data Fasting glucose >/= 126 [...] 2022. Calcium 7.6(L) 8.5 - 10.3 mg/dL [facility] Bilirubin, total 0.7 0.1 - 1.2 mg/dL [facility] Protein, pl 6.0(L) 6.5 - 8.5 g/dL [facility] Albumin 3.1(L) 3.5 - 5.0 g/dL [facility] Alk phos 68 40 - 130 Units/L [facility] ALT 11 7 - 55 Units/L [facility] AST 22 10 - 50 Units/L [facility] Blood 07/11/2024 9:14 PM MACHINE GRAINER 07/11/2024 9:25 PM MACHINE GRAINER us Coco Batres MD LAB BLOOD ORDERABLES Final Re sult Performing Organization Address City/[facility]/ZIP Co de Phone Number [facility] Department [place] [address] * POCT glucose (07/11/2024 7:32 PM MACHINE GRAINER) [facility] Signature Glucose, POC 180 70 - 199 mg/dL Blood 07/11/2024 7:32 PM MACHINE GRAINER 07/11/2024 7:32 PM MACHINE GRAINER Marcella Taylor MD LAB POCT ORDERABLES - DEVICE Fin al Result Performing Organization Address [facility]/ZIP Co de Phone Number [facility] Department [place] [address] * SCAN - LABS (07/11/2024) Provider Scanning Edited Result - Final * Influenza A/B, RSV, and COVID-19 PCR Nasopharyngeal (07/09/2024 11:52 AM MACHINE GRAINER) COVID-19 RNA Negative Negative Influenza A RNA Negative Negative [facility] Influenza B RNA Negative Negative [facility] RSV RNA Negative Negative [facility] Comment: Interpretive data: Testing performed by [facility]. This test is performed using the The [employer] Xpert Xpress CoV-2/Flu/RSV plus assay. This is a multiplex, real-time reverse transcriptase PCR assay intended for the qualitative detection of nucleic acid from SARS-CoV-2, influenza A, influenza B, and respiratory syncytial virus. This assay has been cleared by the [place] Food and Drug administration. The performance characteristics have been verified by the [facility]. Results must be considered in the clinical context, and a negative result does not rule out infection. Interpretive Data last revised 2023 Nasopharyngeal 07/09/2024 11 :52 AM MACHINE GRAINER 07/09/2024 2:52 PM MACHINE GRAINER Narrative [facility] - 07/09/2024 4:04 PM MACHINE GRAINER Is the Patient experiencing symptoms consistent with COVID?->Yes Manjula Gonzalez NP LAB MICROBIOLOGY - GENERAL ORD ERABLES Final Result [facility] [address] Department [place] [address] * POC Influenza A/B, COVID-19 antigen (07/09/2024 11:34 AM MACHINE GRAINER) Influenza A Ag, POC Negative Negative [facility] Influenza B Ag, POC Negative Negative [facility] COVID-19 Ag POC Presumptive Negative Presumptive Negative, Invalid [facility] Nasal 07/09/2024 11:3 4 AM MACHINE GRAINER Manjula M. Trower TRAFFIC CONTROL SUPERVISOR POINT OF CARE TEST ORDERABLES Final Result [facility] [place] [address], [facility] * (ABNORMAL) eGFR (07/03/2024 12:19 PM MACHINE GRAINER) eGFR 6(L) >=60 mL/min/1. 73 m2 Comment: [...] reviewed 2021. Blood 07/03/2024 12:1 9 PM MACHINE GRAINER 07/03/2024 12:19 PM MACHINE GRAINER us Marcella Taylor MD LAB BLOOD ORDERABLES Final Resul t Performing Organization Address City/[facility]/ZIP Co de Phone Number PITA BARGER [facility] Department [place] [address] * (ABNORMAL) Differential, auto (07/03/2024 12:19 PM MACHINE GRAINER) Neutrophil abs 9.6(H) 1.5 - 6.5 K/cumm Comment:Testing performed by : [facility], [address] [place] [id number] Imm gran abs 0.1 0.0 - 0.1 K/cumm [facility] Lymphocyte abs 1.1 0.8 - 3.3 K/cumm [facility] Monocyte abs 0.7 0.2 - 0.8 K/cumm [facility] Eosinophil abs 0.4 0.0 - 0.5 K/cumm [facility] Basophil abs 0.1 0.0 - 0.1 K/cumm [facility] Neutrophil pct 79.8 % [facility] Comment: Interpretive Data Percent cell count reference ranges are not reported, since discordance with absolute values may lead to misinterpretation of CBC data. Current Interpretive Data was last revised on 2017. Imm gran pct 0.5 % [facility] Comment: Interpretive Data Percent cell count reference ranges are not reported, since discordance with absolute values may lead to misinterpretation of CBC data. Current Interpretive Data was last revised on 2017. Lymphocyte pct 9.4 % [facility] Comment: Interpretive Data Percent cell count reference ranges are not reported, since discordance with absolute values may lead to misinterpretation of CBC data. Current Interpretive Data was last revised on 2017. Monocyte pct 5.9 % [facility] Comment: Interpretive Data Percent cell count reference ranges are not reported, since discordance with absolute values may lead to misinterpretation of CBC data. Current Interpretive Data was last revised on 2017. Eosinophil pct 3.7 % [facility] Comment: Interpretive Data Percent cell count reference ranges are not reported, since discordance with absolute values may lead to misinterpretation of CBC data. Current Interpretive Data was last revised on 2017. Basophil pct 0.7 % [facility] Comment: Interpretive Data Percent cell count reference ranges are not reported, since discordance with absolute values may lead to misinterpretation of CBC data. Current Interpretive Data was last revised on 2017. Blood 07/03/2024 12:1 9 PM MACHINE GRAINER 07/03/2024 12:19 PM MACHINE GRAINER us Marcella Taylor MD LAB BLOOD ORDERABLES Final Resul t [facility] Department [place] [address] * (ABNORMAL) CBC with auto differential (07/03/2024 12:19 PM MACHINE GRAINER) [facility] WBC 12.0(H) 3.8 - 9.9 K/cumm Comment:Testing performed by : [address] [address] Hgb 9.1(L) 13.0 - 17.5 g/dL [facility] Comment:Testing performed by : [address] [address] Hct 28.8(L) 38.9 - 50.3 % [facility] Comment:Testing performed by : [address] [address] Plt 230 150 - 400 K/cumm [facility] Comment:Testing performed by : [address] [address] MPV 10.0 9.1 - 12.3 fL [facility] RBC 3.49(L) 4.30 - 5.80 M/cumm [facility] MCV 82.5 81.3 - 96.4 fL [facility] MCH 26.1(L) 27.1 - 33.3 pg [facility] MCHC 31.6(L) 32.3 - 35.7 g/dL [facility] RDW CV 16.6(H) 11.1 - 14.9 % [facility] RDW SD 50.1(H) 35.7 - 48.1 fL [facility] NRBC abs 0.00 0.00 - 0.01 K/cumm [facility] Blood 07/03/2024 12:1 9 PM MACHINE GRAINER 07/03/2024 12:19 PM MACHINE GRAINER us Marcella Taylor MD LAB BLOOD ORDERABLES Final Resul t [facility] Department [place] [address] * Lactate dehydrogenase (LD) (07/03/2024 12:19 PM MACHINE GRAINER) [facility] Lactate dehydrogenase (LDH) 239 100 - 250 Units/L Comment:Testing performed by : [address] [place] [address] Blood 07/03/2024 12:1 9 PM MACHINE GRAINER 07/03/2024 12:19 PM MACHINE GRAINER us Marcella Taylor MD LAB BLOOD ORDERABLES Final Resul t [facility] Department [place] [address] * (ABNORMAL) Comprehensive metabolic panel (07/03/2024 12:19 PM MACHINE GRAINER) Sodium 144 135 - 145 mmol/L Comment:Testing performed by : [facility], [address] [place] [address] Potassium, pl 4.4 3.3 - 4.9 mmol/L [facility] Chloride 109 97 - 110 mmol/L [facility] CO2 22 22 - 32 mmol/L [facility] Anion gap 13 2 - 15 mmol/L [facility] BUN 75(H) 6 - 25 mg/dL [facility] Creatinine 7.93(H) 0.80 - 1.30 mg/dL [facility] Glucose 145 70 - 199 mg/dL [facility] Comment: Interpretive Data Fasting glucose >/= 126 [...] 2022. Calcium 7.9(L) 8.5 - 10.3 mg/dL [facility] Bilirubin, total 0.6 0.1 - 1.2 mg/dL [facility] Protein, pl 6.3(L) 6.5 - 8.5 g/dL [facility] Albumin 3.4(L) 3.5 - 5.0 g/dL [facility] Alk phos 74 40 - 130 Units/L [facility] ALT 9 7 - 55 Units/L [facility] AST 15 10 - 50 Units/L [facility] Blood 07/03/2024 12:1 9 PM MACHINE GRAINER 07/03/2024 12:19 PM MACHINE GRAINER us Marcella Taylor MD LAB BLOOD ORDERABLES Final Resul t [facility] Department [place] [address] * PET/CT FDG Skull to Thigh (06/27/2024 9:08 AM MACHINE GRAINER) Anatomical Region Laterality Modality N/A Positron Emissio n Tomography (PET) 06/27/2024 9:48 AM MACHINE GRAINER Impressions 06/27/2024 1:52 PM MACHINE GRAINER 1. Continued treatment response with decrease in [...] Daniel Herr MD Narrative 06/27/2024 1:52 PM MACHINE GRAINER EXAMINATION: TUMOR FDG-PET/CT IMAGING DATE OF STUDY: [...] obtained. The study was interpreted on the [employer] workstation. The mean liver SUV (reported for quality management coordinator purposes) is 1.9. The total scanned area [...] obtained. The study was interpreted on the [employer] workstation. The mean liver SUV (reported for quality management coordinator purposes) is 1.9. The total scanned area [...] Albumin Creatinine Ratio, Urine (05/13/2024 9:16 AM MACHINE GRAINER) Albumin Ur 3,688.8 mg/L Comment: Interpretive Data No reference range established. Current interpretive data was last revised 2018. Creatinine Ur 59.2 mg/dL [facility] Comment: Interpretive Data No reference range established. Current interpretive data was last revised 2018. Albumin Creatinine Ratio, Ur 6,231(H) 1 - 29 mg/g [facility] Urine 05/13/2024 9:16 AM MACHINE GRAINER 05/13/2024 2:55 PM MACHINE GRAINER Matt Kendrick MD LAB URINE ORDERABLE S Final Result [facility] [address] Department [place] [address] * (ABNORMAL) Lipid panel (05/13/2024 9:16 AM MACHINE GRAINER) Cholesterol 128 30 - 199 mg/dL Comment: [...] on 2018. Triglycerides 67 <=149 mg/dL [facility] Comment: Interpretive Data Ages [...] 2. NCEP Expert Panel. Circulation 2004;110:227 3. Nolan M et al. JOVI Cardiol. 2020 October 03;5(5):540-548. doi: 10.1001/jamacardio.2020.0013 [...] ratio 3 [facility] Blood 05/13/2024 9:16 AM MACHINE GRAINER 05/13/2024 2:55 PM MACHINE GRAINER us Matt Kendrick MD LAB BLOOD ORDERABLE S Final Result [facility] [address] Department [place] [address] * CT abdomen pelvis without contrast (12/14/2023 [...] Electronically signed by: Lenny Redd M.D., Ph.D us Marcella Taylor MD IM CT PROCEDURES Final Result * DIABETES EYE EXAM (06/15/2023) 06/15/2023 Historical Provider [facility] MAINTENANCE Edited Result - Final from Last 3 Months or Most Recently Relevant to Health Maintenance Insurance [place]IC[place] [id number] [facility] SUPPLEMENT MEDICARE [place] [address] [facility] SUPPLEMENT MEDICARE COMMERCIAL GENERIC Advance Directives For more information, please contact: [phone] * Full Code (Latest Code Status on [...] 1:19 PM 07/30/2020 4:54 AM Care Teams Javascript Application Developer Relationship Specialty Start [place] [address] [place] [place] [id number] PCP - General Family Practice 04/26/22 Marcella Taylor MD [address] [place] [address] Medical Oncologist/Care Technician Medical Oncology 08/08/20
--- OUTSIDE RECORDS SUMMARY | 2024-09-05 14:40 | XMS_ITS | Encounter Summary ---
Author Name [facility] [facility] [place] Organization [facility] [place] [facility] [place] Address [address] [place] [address] Support Name Relationship Address Phone TYECARMEN Next of Kin [address] [place] [address] CARMEN GAMBLE Emergency Contact [address] [place] [address] Insurance Providers: All historical and current Section Date Range: From patient's date of to the date document was created. This section includes the names of all active insurance providers for the patient. Insurance Provider Type of Coverage Plan Name Start of Policy Coverage End of Policy Coverage Group Number Member ID Insurance Provider's Telephone Number Policy Menezes's Name Patient's Relationship to Policy Menezes MEDICARE (WNR) MEDICARE (M) PART A Sep 03, 2010 PART A [id number] TYEALEX LAWS PATIENT MEDICARE (WNR) MEDICARE (M) PART B Sep 03, 2010 PART B [id number] ALEX GAMBLE PATIENT Selected Encounter This section includes the information on record at [place] for the Encounter. Date/Time Encounter Type Encounter Description Reason Provider Source Dec 04, 2023 02:24 PM HEARING AID REPAIR/MODIFYIN G AUDIOLOGY ICD-10-CM H90.3 Sensorineural hearing loss, bilateral KATE DAVIS Encounter Template Text not used by [place] Assessments - Encounter Diagnoses This section includes the primary and secondary diagnoses documented for the Encounter. Date/Time Primary/Secondary Diagnosis Diagnosis Name Provider Source Dec 04, 2023 02:44 PM PRIMARY Sensorineural hearing loss, bilateral CARLOS ZAMUDIO [facility] Encounter Notes: All associated encounter notes This section contains the clinical notes associated to the Encounter. Date/Time Encounter Note(s) Provider Source Dec 04, 2023 02:24 PM AUDIOLOGY CAN WASHER NOTE: LOCAL TITLE: HEARING AIDS STL STANDARD TITLE: AUDIOLOGY CAN WASHER NOTE DATE OF NOTE: DEC 04, 2023@14:24 ENTRY DATE: DEC 04, 2023@14:24:12 AUTHOR: CARLOS ZAMUDIO COSIGNER: KATE DAVIS URGENCY: STATUS: COMPLETED SUBJECT: audio HEARING AIDS STL Has ADDENDA HAC: Pt dropped off both 2019 Phonak Audeo M90-RT RICs with c/o Right won't charge. Placed aids in clinic supervisor in circuit testing; both charged to full battery without issue. Listening check revealed weak sound quality in left and WNL sound quality in right. Cleaned and checked aids; brushed yaz ports, changed wax guards, and replaced 3ML volcanologist. Listening check revealed WNL sound quality AU. Called pt at [phone] and spoke with female family member. Notified her of repair actions. Advised the supervisor in circuit testing be unplugged and replugged as a hard reset. Will mail aids back to pt address. If charging issue persists, pt will call to have new supervisor in circuit testing ordered through [facility] and mailed to pt address. Verified address: [address] [place], [place] [id number] Ordered 3ML volcanologist to replenish clinic stock. /es/ CARLOS ZAMUDIO Supervisor Transcribing Operators Signed: 12/04/2023 14:46 /jeff/ KATE Tripathi Discharging Machine Operator, Surgery Service Cosigned: 12/05/2023 15:43 12/05/2023 ADDENDUM STATUS: COMPLETED The information above has been reviewed by this provider. I am in agreement with the action plan as outlined. /jeff/ KATE Tripathi Discharging Machine Operator, Surgery Service Signed: 12/05/2023 15:43 12/08/2023 ADDENDUM STATUS: COMPLETED [id number] /jeff/ KATE DAVIS Staff Discharging Machine Operator, Surgery Service Signed: 12/08/2023 15:32 12/12/2023 ADDENDUM STATUS: COMPLETED Received volcanologist and placed in clinic stock, 3M-left. /es/ Balwinder CASTILLO Staff Discharging Machine OperatorShady, Surgery Service Signed: 12/12/2023 11:03 CARLOS ZAMUDIO [facility]
--- OUTSIDE RECORDS SUMMARY | 2024-09-05 14:40 | XMS_ITS ---
Author Organization [facility] Address [address] [place] [address] Care Team Providers Care Camera Technician Name Role Phone Leonidas Banks MD, Robert Unavailable Justa Bueno- Unavailable [phone] Anselmo Sampson MD Primary Care Provider [phone] Active Problems Problem Noted Date Diagnosed Date Chronic heart failure with p reserved ejection fraction (HFpEF) ([facility]) 01/16/2023 Assessment & Plan (01/16/2023 9:55 AM CDT): Likely require some daily dosing of the loop diuretic. Due to his low GFR he will not likely tolerate an aldosterone antagonist or an SGLT2 inhibitor. Contact his education professional for the dosing schedule as this has been somewhat tenuous lately but I would suspect a dose of furosemide of around 40 mg daily would be suspected. 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 Overview (03/10/2022): Added automatically from request for surgery [id number] Dehydration 01/24/2019 Viral infection 01/24/2019 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 He will continue with aggressive secondary risk factor modification. 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 Past Plans No past plan information found. Radiation Treatments * No radiation treatments are documented for this patient in [facility]. Treatments may have been administered in another system.
--- OUTSIDE RECORDS SUMMARY | 2024-09-05 14:41 | XMS_ITS | Encounter Summary ---
Author Organization [facility] Address [address] [facility] [address] [place] [address] Phone Care Team Providers Care Stabber Name Role Phone Marcella Taylor MD Unavailable Anselmo Sampson MD Primary Care Provider [phone] Encounter Details Date Type Department Care Team (Latest Contact Info) Description 02/10/2023 Orders Only [facility] Scanning, Provider Social History Tobacco Use Types Packs/Day Years Used Date Smoking Tobacco: Former Cigarettes 1.5 14 1 967 - 1980 Smokeless Tobacco: Never AUDIT-C Answer Date Recorded Q1: How often do you have a drink containing alc ohol? Never 12/29/2022 Average Number of Drinks Not on file 023 Frequency of Binge Drinking Not on file 12/04 Sex and Gender Information Value Date Recorded Sex Assigned at Not on file Legal Sex Male 6:14 AM PARIMUTUEL CASHIER Gender Identity Not on file Sexual Orientation Not on file documented as of this encounter Plan of Treatment Upcoming Encounters Date Type Department Care Team (Latest Contact Info) Description 09/20/2024 7:30 AM CDT Hospital Encounter [facility] Operating [address] [place] [address] Godfrey Villarreal MD [address] [facility] [id number] [place] [address] 09/20/2024 7:30 AM CDT - 09/20/2024 10:40 AM CDT Surgery [facility] [address] [place] [address] Godfrey Villarreal MD [address] [facility] [id number] [place] [address] CREATION ARTERIOVENOUS FISTULA - ARM Scheduled Procedures Name Priority Associated Diagnoses Date/Ti me CREATION ARTERIOVENOUS FISTULA - ARM ESRD (end stage renal disease) on dialysis (HCC) 09/20/2024 7:30 AM CDT documented as of this encounter Procedures Procedure Name Priority Date/Time Associated Diagnosis Comments SCAN - LABS 02/10/2023 documented in this encounter Results * SCAN - LABS (02/10/2023) us Provider Scanning Final Result documented in this encounter Visit Diagnoses Not on filedocumented in this encounter Additional Health Concerns Infection Onset Date Last Indicated Resolved Time COVID: Suspected 10/09/2023 10/09/2023 10/09/2023 2:41 PM CDT COVID: Suspected 07/09/2024 07/09/2024 07/09/2024 11:36 AM PARIMUTUEL CASHIER COVID: Suspected 07/09/2024 07/09/2024 07/09/2024 4:05 PM PARIMUTUEL CASHIER documented as of this encounter Care Teams Stabber Relationship Specialty [place] [address] [address] PCP - General Family Practice 04/26/22 Marcella Taylor MD [address] [place] [address] [address] [place] [address] Medical Oncologist/Engraving Supervisor Medical Oncology 08/08/20 documented as of this encounter
--- OUTSIDE RECORDS SUMMARY | 2024-09-05 14:41 | XMS_ITS | Encounter Summary ---
Author Organization [facility] Address [address] [facility] [address] [place] [address] Phone Care Team Providers Care Laminator Hand Name Role Phone Marcella Taylor MD Unavailable Anselmo Sampson MD Primary Care Provider [phone] Encounter Details Date Type Department Care Team (Latest Contact Info) Description 11/28/2022 Orders Only [facility] Scanning, Provider Social History Tobacco Use Types Packs/Day Years Used Date Smoking Tobacco: Former Cigarettes 1.5 14 1 967 - 1980 Smokeless Tobacco: Never AUDIT-C Answer Date Recorded Q1: How often do you have a drink containing alc ohol? Never 05/05/2022 Average Number of Drinks Not on file 022 Frequency of Binge Drinking Not on file 06/2021 Sex and Gender Information Value Date Recorded Sex Assigned at Not on file Legal Sex Male 6:14 AM DEVELOPMENT COORDINATOR Gender Identity Not on file Sexual Orientation Not on file documented as of this encounter Plan of Treatment Upcoming Encounters Date Type Department Care Team (Latest Contact Info) Description 09/20/2024 7:30 AM CDT Hospital Encounter [facility] Operating Room [address] [place] [address] Godfrey Villarreal MD [address] [facility] [id number] [place] [address] 09/20/2024 7:30 AM CDT - 09/20/2024 10:40 AM CDT Surgery [facility] Operating Room [address] [place] [address] Godfrey Villarreal MD [address] [facility] [id number] [place] [address] CREATION ARTERIOVENOUS FISTULA - ARM Scheduled Procedures Name Priority Associated Diagnoses Date/Ti me CREATION ARTERIOVENOUS FISTULA - ARM ESRD (end stage renal disease) on dialysis (HCC) 09/20/2024 7:30 AM CDT documented as of this encounter Procedures Procedure Name Priority Date/Time Associated Diagnosis Comments SCAN - LABS 11/28/2022 documented in this encounter Results * SCAN - LABS (11/28/2022) us Provider Scanning Final Result documented in this encounter Visit Diagnoses Not on filedocumented in this encounter Additional Health Concerns Infection Onset Date Last Indicated Resolved Time COVID: Suspected 10/09/2023 10/09/2023 10/09/2023 2:41 PM CDT COVID: Suspected 07/09/2024 07/09/2024 07/09/2024 11:36 AM DEVELOPMENT COORDINATOR COVID: Suspected 07/09/2024 07/09/2024 07/09/2024 4:05 PM DEVELOPMENT COORDINATOR documented as of this encounter Care Teams Laminator Hand Relationship Specialty Start [place] [address] [address] PCP - General Family Practice 04/26/22 Marcella Taylor MD [address] [place] [address] [address] [place] [address] Medical Oncologist/Bush And Vine Farmer [employer] Medical Oncology 08/08/20 documented as of this encounter
--- OUTSIDE RECORDS SUMMARY | 2024-09-05 14:41 | XMS_ITS | Encounter Summary ---
Author Organization [facility] Address [address] [facility] [address] [place] [address] Phone Care Team Providers Care Residency Director Name Role Phone Marcella Taylor MD Primary Care Provider [phone] Gerard Mo MD Primary Care Provider [phone] Marcella Taylor MD Unavailable Anselmo Sampson MD Primary Care Provider [phone] Encounter Details Date Type Department Care Team (Late st Contact Info) Description 10/26/2017 Orders Only [facility] ProviderQuinten MD [address] [place] [address] Social History Tobacco Use Types Packs/Day Years Used Date Smoking Tobacco: Former Sex and Gender Information Value Date Recorded Sex Assigned at Not on file Legal Sex Male 6:14 AM ICE CREAM DISPENSER Gender Identity Not on file Sexual Orientation Not on file documented as of this encounter Plan of Treatment Upcoming Encounters Date Type Department Care Team (Latest Contact Info) Description 09/20/2024 7:30 AM CDT Hospital Encounter [facility] Operating Room [address] [place] [id number] Godfrey Villarreal MD [address] [facility] [id number] [place] [address] 09/20/2024 7:30 AM CDT - 09/20/2024 10:40 AM CDT Surgery [facility] Operating [address] [place] [address] Godfrey Villarreal MD [address] [facility] [id number] [place] [address] CREATION ARTERIOVENOUS FISTULA - ARM Scheduled Procedures Name Priority Associated Diagnoses Date/Ti me CREATION ARTERIOVENOUS FISTULA - ARM ESRD (end stage renal disease) on dialysis (HCC) 09/20/2024 7:30 AM CDT documented as of this encounter Procedures Procedure Name Priority Date/Time Associated Diagnosis Comments DISCHARGE LABORATORY CUMULATIVE REPORT 10/26/2017 12:00 AM CDT documented in this encounter Results * DISCHARGE LABORATORY CUMULATIVE REPORT (10/26/2017 12:00 AM CDT) Narrative 10/26/2017 12:00 AM CDT Ordered by an unspecified provider. us Historical Provider LAB BLOOD ORDERABLES Jocelyn l Result documented in this encounter Visit Diagnoses Not on filedocumented in this encounter Additional Health Concerns Infection Onset Date Last Indicated Resolved Time COVID: Suspected 10/09/2023 10/09/2023 10/09/2023 2:41 PM CDT COVID: Suspected 07/09/2024 07/09/2024 07/09/2024 11:36 AM ICE CREAM DISPENSER COVID: Suspected 07/09/2024 07/09/2024 07/09/2024 4:05 PM ICE CREAM DISPENSER documented as of this encounter Care Teams Residency Director Relationship Specialty Start Date End Date Marcella Taylor MD [address] [facility] [address] [place] [address] PCP - General 10/26/17 10/31/17 Gerard Mo MD [address] [facility] [place] [address] PCP - General 11/01/17 04/25/22 [place] [address] [address] PCP - General Family Practice 04/26/22 Marcella Taylor MD [address] [facility] [address] [place] [address] Medical Oncologist/Brass Chaser Medical Oncology 08/08/20 documented as of this encounter
--- OUTSIDE RECORDS SUMMARY | 2024-09-05 14:41 | XMS_ITS ---
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 Ordering Clinician Indication Dosage Frequency Signature (SIG) Comments Components Venofer 08-30 05:00: 00 Yes [id number] Number of Repeats Allowed: Frequency: One time a weekDosesO rdered: Maintenanc e Dose 50 Milligram Route: Intravenou s Calcium Magnesium Zinc 08-24 15:36: 32 Yes Number of Repeats Allowed: Frequency: Three times a day Co Q 10 08-24 15:35: 44 Yes Number of Repeats Allowed: Frequency: One time a day amLODIPine Benzoate 08-24 15:28: 37 Yes Number of Repeats Allowed: Frequency: One time a day hydrALAZINE HCl 08-24 15:27: 35 Yes Number of Repeats Allowed: Frequency: One time a day Mircera 08-17 20:18: 16 Yes [id number] Number of Repeats Allowed: Frequency: LINNEA dosing, every two weeks ONS [facility] 07-29 16:11: 59 Yes [id number] Number of Repeats Allowed: Frequency: Every Dialysis Treatment Venofer 07-28 16:03: 06 Yes [id number] Number of Repeats Allowed: 10Frequenc y: Every Dialysis TreatmentD osesOrdere d: Loading Dose 100 Milligram Route: Intravenou s heparin sodium, porcine 07-27 19:41: 31 Yes [id number] Number of Repeats Allowed: Frequency: Every Dialysis TreatmentD osesOrdere d: Hourly Dose 1000 Units/Hr 1:1000 Units/mLRo [place]: Intravenou s heparin sodium, porcine 07-27 19:40: 54 Yes [id number] Number of Repeats Allowed: Frequency: Every Dialysis TreatmentD osesOrdere d: Loading Dose 2000 Units 1:1000 Units/mLRo [place]: Intravenou s Tamsulosin HCl 07-25 18:23: 38 Yes Number of Repeats Allowed: Frequency: One time a day Cyanocobala min 07-25 17:32: 17 Yes Number of Repeats Allowed: Frequency: Every month Qinlock 07-20 17:52: 21 Yes Number of Repeats Allowed: Frequency: One time a day Carvedilol 07-20 17:51: 24 Yes Number of Repeats Allowed: Frequency: Two times a day Colesevelam HCl 07-20 17:49: 48 Yes Number of Repeats Allowed: Frequency: Two times a day Livalo 07-20 17:49: 03 Yes Number of Repeats Allowed: Frequency: One time a day hydrALAZINE HCl 07-20 17:48: 26 Yes Number of Repeats Allowed: Frequency: Two times a day Aspirin 81 07-20 17:47: 38 Yes Number of Repeats Allowed: Frequency: One time a day Cetirizine HCl 07-20 17:47: 06 Yes Number of Repeats Allowed: Frequency: One time a day Oxygen 07-15 16:05: 16 Yes [id number] Number of Repeats Allowed: Frequency: As needed ondansetron hydrochlori de 07-15 16:05: 08 Yes [id number] Number of Repeats Allowed: Frequency: Every 4 hours as needed diphenhydra mine hydrochlori de 07-15 16:04: 53 Yes [id number] Number of Repeats Allowed: Frequency: Every 4 hours as needed diphenhydra mine hydrochlori de 07-15 16:04: 26 Yes [id number] Number of Repeats Allowed: Frequency: Every 4 hours as needed clonidine 07-15 16:03: 00 Yes [id number] Number of Repeats Allowed: Frequency: Every 4 hours as needed acetaminoph en 07-15 16:02: 53 Yes [id number] Number of Repeats Allowed: Frequency: Every 4 hours as needed Problems This patient has no known problems. Procedures Procedure Date / Time Performed Performing Clinician Christiana rey Details Central Venous Catheter (CVC) 2024-07-11 06:00:00 Access Site Chest (Right) Access Use Start Date 2024-07-16 00:00:0 0 DIALYSIS TREATMENT INFORMATION Conventional Hemodialysis Date Type Treatment Start Date Treatment End Date Pre-Treatment Vitals Post-Treatment Vitals Weight Gain BFR DFR Actual UF Dialysis Access September 05, 2024 In-Ce nter Hemod ialys is Treat ment 2024-09-05 T15:19:52. 000Z 2024-09-05 T18:11:07. 000Z BP Sitting (Pre-Dialysis) 176/78 mmHg BP Sitting (Post-D ialysis ) 126/ 60 mmHg BP Standing (Pre-Dialysis) 155/63 mmHg Sitti ng Heart Rate Post-Dialysis 58 BPM Sitting Heart Rate Pre-Dialysis 61 BPM Temperatu re Post-Dialysis 97.7 degF Standing Heart Rate Pre-Dialysis 66 BPM Temperature Pre-Dialysis 98.3 degF September 03, 2024 In-Center Hemodialysis Treatment [id number]:50:32.000Z 3658-58-57W73:21:47.000Z BP Sitting (Pre-Dialysis) 190/76 mmHg BP Sitting (Post-Dialysis) 163/72 mmHg Concurrent Access: falseCentral Venous Catheter (CVC) Chest (Right) Arterial BP Standing (Pre-Dialysis) 162/72 mmHg BP Standing (P ost-Dialysis) 143/70 mmHg Sitting Heart Rate Pre-Dialysis 54 BPM Sitting Heart Rate Post-Dialysis 56 BPM Standing Heart Rate Pre-Dialysis 55 BPM Standing Heart Rate Post-Dialysis 57 BPM Temperature Pre-Dialysis 98.1 degF Temperature Post -Dialysis 98.2 degF August 31, 2024 In-Center Hemodialysis Treatment [id number]:29:55.000Z 5794-28-11O87:58:40.000Z BP Sitting (Pre-Dialysis) 198/93 mmHg BP Sitting (Post-Dialysis) 180/86 mmHg Concurrent Access: falseCentral Venous Catheter (CVC) Chest (Right) Arterial BP Standing (Pre-Dialysis) 168/77 mmHg BP Standing (P ost-Dialysis) 154/81 mmHg Sitting Heart Rate Pre-Dialysis 82 BPM Sitting Heart Rate Post-Dialysis 92 BPM Standing Heart Rate Pre-Dialysis 87 BPM Standing Heart Rate Post-Dialysis 97 BPM Temperature Pre-Dialysis 98.3 degF Temperature Post -Dialysis 97.7 degF August 29, 2024 In-Center Hemodialysis Treatment [id number]:37:00.000Z 5283-73-74L71:10:32.000Z BP Sitting (Pre-Dialysis) 178/83 mmHg BP Sitting (Post-Dialysis) 158/98 mmHg Concurrent Access: falseCentral Venous Catheter (CVC) Chest (Right) Arterial BP Standing (Pre-Dialysis) 178/82 mmHg BP Standing (P ost-Dialysis) 142/75 mmHg Sitting Heart Rate Pre-Dialysis 77 BPM Sitting Heart Rate Post-Dialysis 84 BPM Standing Heart Rate Pre-Dialysis 84 BPM Standing Heart Rate Post-Dialysis 82 BPM Temperature Pre-Dialysis 98.3 degF Temperature Post -Dialysis 98.1 degF August 27, 2024 In-Center Hemodialysis Treatment [id number]:28:00.000Z 6255-42-85Q66:54:06.000Z BP Sitting (Pre-Dialysis) 188/79 mmHg BP Sitting (Post-Dialysis) 155/74 mmHg Concurrent Access: falseCentral Venous Catheter (CVC) Chest (Right) Arterial BP Standing (Pre-Dialysis) 189/71 mmHg BP Standing (P ost-Dialysis) 122/67 mmHg Sitting Heart Rate Pre-Dialysis 72 BPM Sitting Heart Rate Post-Dialysis 69 BPM Standing Heart Rate Pre-Dialysis 76 BPM Standing Heart Rate Post-Dialysis 77 BPM Temperature Pre-Dialysis 98 degF Temperature Post -Dialysis 98 degF August 24, 2024 In-Center Hemodialysis Treatment [id number]:51:08.000Z 7861-64-45B81:21:33.000Z BP Sitting (Pre-Dialysis) 197/80 mmHg BP Sitting (Post-Dialysis) 164/64 mmHg Concurrent Access: falseCentral Venous Catheter (CVC) Chest (Right) Arterial BP Standing (Pre-Dialysis) 185/76 mmHg BP Standing (P ost-Dialysis) 150/69 mmHg Sitting Heart Rate Pre-Dialysis 61 BPM Sitting Heart Rate Post-Dialysis 65 BPM Standing Heart Rate Pre-Dialysis 65 BPM Standing Heart Rate Post-Dialysis 70 BPM Temperature Pre-Dialysis 98.2 degF Temperature Post -Dialysis 98.1 degF August 22, 2024 In-Center Hemodialysis Treatment [id number]:20:04.000Z [id number]:50:04.000Z BP Sitting (Pre-Dialysis) 191/86 mmHg BP Sitting (Post-Dialysis) 146/61 mmHg Concurrent Access: falseCentral Venous Catheter (CVC) Chest (Right) Arterial Sitting Heart Rate Pre-Dialysis 67 BPM BP Standing (Post-Dialysis) 154/62 mmHg Temperature Pre-Dialysis 98.4 degF Sitting Heart Ra te Post-Dialysis 64 BPM Standing Heart Rate Post-Eva lysis 67 BPM Temperature Post-Dialysis 98 degF August 20, 2024 In-Center Hemodialysis Treatment [id number]:40:00.000Z [id number]:41:15.000Z BP Sitting (Pre-Dialysis) 184/73 mmHg BP Sitting (Post-Dialysis) 143/65 mmHg Concurrent Access: falseCentral Venous Catheter (CVC) Chest (Right) Arterial BP Standing (Pre-Dialysis) 149/65 mmHg BP Standing (P ost-Dialysis) 124/57 mmHg Sitting Heart Rate Pre-Dialysis 59 BPM Sitting Heart Rate Post-Dialysis 59 BPM Standing Heart Rate Pre-Dialysis 65 BPM Standing Heart Rate Post-Dialysis 64 BPM Temperature Pre-Dialysis 98.3 degF August 17, 2024 In-Center Hemodialysis Treatment [id number]:15:00.000Z 8222-99-12W86:46:53.000Z BP Sitting (Pre-Dialysis) 155/64 mmHg BP Sitting (Post-Dialysis) 167/68 mmHg Concurrent Access: falseCentral Venous Catheter (CVC) Chest (Right) Arterial Sitting Heart Rate Pre-Dialysis 53 BPM BP Standing (Post-Dialysis) 155/73 mmHg Temperature Pre-Dialysis 98.1 degF Sitting Heart Ra te Post-Dialysis 62 BPM Standing Heart Rate Post-Eva lysis 63 BPM August 15, 2024 In-Center Hemodialysis Treatment [id number]:47:00.000Z 3007-17-80Z08:17:48.000Z BP Sitting (Pre-Dialysis) 127/58 mmHg BP Sitting (Post-Dialysis) 142/67 mmHg Concurrent Access: falseCentral Venous Catheter (CVC) Chest (Right) Arterial BP Standing (Pre-Dialysis) 112/51 mmHg BP Standing (P ost-Dialysis) 104/55 mmHg Sitting Heart Rate Pre-Dialysis 63 BPM Sitting Heart Rate Post-Dialysis 66 BPM Standing Heart Rate Pre-Dialysis 67 BPM Standing Heart Rate Post-Dialysis 70 BPM Temperature Pre-Dialysis 98.4 degF Temperature Post -Dialysis 97.9 degF August 13, 2024 In-Center Hemodialysis Treatment [id number]:43:34.000Z [id number]:13:34.000Z BP Sitting (Pre-Dialysis) 157/66 mmHg BP Sitting (Post-Dialysis) 154/65 mmHg Concurrent Access: falseCentral Venous Catheter (CVC) Chest (Right) Arterial BP Standing (Pre-Dialysis) 138/59 mmHg BP Standing (P ost-Dialysis) 103/47 mmHg Sitting Heart Rate Pre-Dialysis 60 BPM Sitting Heart Rate Post-Dialysis 63 BPM Standing Heart Rate Pre-Dialysis 65 BPM Standing Heart Rate Post-Dialysis 68 BPM Temperature Pre-Dialysis 97.8 degF Temperature Post -Dialysis 98.4 degF August 10, 2024 In-Center Hemodialysis Treatment [id number]:46:00.000Z 7999-94-30T69:18:51.000Z BP Sitting (Pre-Dialysis) 181/92 mmHg BP Sitting (Post-Dialysis) 138/75 mmHg Concurrent Access: falseCentral Venous Catheter (CVC) Chest (Right) Arterial BP Standing (Pre-Dialysis) 160/68 mmHg BP Standing (P ost-Dialysis) 132/61 mmHg Sitting Heart Rate Pre-Dialysis 66 BPM Sitting Heart Rate Post-Dialysis 59 BPM Standing Heart Rate Pre-Dialysis 71 BPM Standing Heart Rate Post-Dialysis 66 BPM Temperature Pre-Dialysis 97.9 degF Temperature Post -Dialysis 97.6 degF August 08, 2024 In-Center Hemodialysis Treatment [id number]:31:00.000Z 8937-20-14J51:07:36.000Z BP Sitting (Pre-Dialysis) 141/56 mmHg BP Sitting (Post-Dialysis) 123/63 mmHg Concurrent Access: falseCentral Venous Catheter (CVC) Chest (Right) Arterial BP Standing (Pre-Dialysis) 118/50 mmHg BP Standing (P ost-Dialysis) 119/52 mmHg Sitting Heart Rate Pre-Dialysis 57 BPM Sitting Heart Rate Post-Dialysis 60 BPM Standing Heart Rate Pre-Dialysis 60 BPM Standing Heart Rate Post-Dialysis 62 BPM Temperature Pre-Dialysis 98.3 degF Temperature Post -Dialysis 98.7 degF August 06, 2024 In-Center Hemodialysis Treatment [id number]:24:00.000Z 2042-83-46P05:58:13.000Z BP Sitting (Pre-Dialysis) 154/66 mmHg BP Sitting (Post-Dialysis) 150/71 mmHg Concurrent Access: falseCentral Venous Catheter (CVC) Chest (Right) Arterial BP Standing (Pre-Dialysis) 138/61 mmHg BP Standing (P ost-Dialysis) 133/58 mmHg Sitting Heart Rate Pre-Dialysis 54 BPM Sitting Heart Rate Post-Dialysis 63 BPM Standing Heart Rate Pre-Dialysis 54 BPM Standing Heart Rate Post-Dialysis 66 BPM Temperature Pre-Dialysis 98.1 degF Temperature Post -Dialysis 98.7 degF August 03, 2024 In-Center Hemodialysis Treatment [id number]:08:00.000Z [id number]:59:18.000Z BP Sitting (Pre-Dialysis) 165/75 mmHg BP Sitting (Post-Dialysis) 139/70 mmHg Concurrent Access: falseCentral Venous Catheter (CVC) Chest (Right) Arterial BP Standing (Pre-Dialysis) 163/70 mmHg BP Standing (P ost-Dialysis) 124/56 mmHg Sitting Heart Rate Pre-Dialysis 58 BPM Sitting Heart Rate Post-Dialysis 60 BPM Standing Heart Rate Pre-Dialysis 61 BPM Standing Heart Rate Post-Dialysis 65 BPM Temperature Pre-Dialysis 97.7 degF Temperature Post -Dialysis 98.8 degF August 01, 2024 In-Center Hemodialysis Treatment [id number]:58:00.000Z [id number]:36:11.000Z BP Sitting (Pre-Dialysis) 155/72 mmHg BP Sitting (Post-Dialysis) 156/76 mmHg Concurrent Access: falseCentral Venous Catheter (CVC) Chest (Right) Arterial BP Standing (Pre-Dialysis) 145/58 mmHg BP Standing (P ost-Dialysis) 133/67 mmHg Sitting Heart Rate Pre-Dialysis 60 BPM Sitting Heart Rate Post-Dialysis 72 BPM Standing Heart Rate Pre-Dialysis 58 BPM Standing Heart Rate Post-Dialysis 74 BPM Temperature Pre-Dialysis 98.4 degF Temperature Post -Dialysis 98.7 degF July 30, 2024 In-Center Hemodialysis Treatment [id number]:20:37.000Z [id number]:50:37.000Z BP Sitting (Pre-Dialysis) 157/66 mmHg BP Sitting (Post-Dialysis) 167/76 mmHg Concurrent Access: falseCentral Venous Catheter (CVC) Chest (Right) Arterial BP Standing (Pre-Dialysis) 125/56 mmHg BP Standing (P ost-Dialysis) 131/64 mmHg Sitting Heart Rate Pre-Dialysis 53 BPM Sitting Heart Rate Post-Dialysis 62 BPM Standing Heart Rate Pre-Dialysis 56 BPM Standing Heart Rate Post-Dialysis 64 BPM Temperature Pre-Dialysis 98.2 degF Temperature Post -Dialysis 98 degF July 27, 2024 In-Center Hemodialysis Treatment [id number]:11:55.000Z [id number]:22:20.000Z BP Sitting (Pre-Dialysis) 172/80 mmHg BP Sitting (Post-Dialysis) 168/67 mmHg Concurrent Access: falseCentral Venous Catheter (CVC) Chest (Right) Arterial BP Standing (Pre-Dialysis) 161/80 mmHg BP Standing (P ost-Dialysis) 151/65 mmHg Sitting Heart Rate Pre-Dialysis 58 BPM Sitting Heart Rate Post-Dialysis 64 BPM Standing Heart Rate Pre-Dialysis 62 BPM Standing Heart Rate Post-Dialysis 64 BPM Temperature Pre-Dialysis 97.5 degF Temperature Post -Dialysis 98 degF July 25, 2024 In-Center Hemodialysis Treatment [id number]:35:00.000Z [id number]:05:54.000Z BP Sitting (Pre-Dialysis) 165/79 mmHg BP Sitting (Post-Dialysis) 163/69 mmHg Concurrent Access: falseCentral Venous Catheter (CVC) Chest (Right) Arterial BP Standing (Pre-Dialysis) 140/70 mmHg BP Standing (P ost-Dialysis) 141/62 mmHg Sitting Heart Rate Pre-Dialysis 65 BPM Sitting Heart Rate Post-Dialysis 61 BPM Standing Heart Rate Pre-Dialysis 70 BPM Standing Heart Rate Post-Dialysis 63 BPM Temperature Pre-Dialysis 98 degF Temperature Post -Dialysis 98.2 degF July 23, 2024 In-Center Hemodialysis Treatment [id number]:32:00.000Z [id number]:02:56.000Z BP Sitting (Pre-Dialysis) 160/60 mmHg BP Sitting (Post-Dialysis) 168/79 mmHg Concurrent Access: falseCentral Venous Catheter (CVC) Chest (Right) Arterial BP Standing (Pre-Dialysis) 133/62 mmHg Sitti ng Heart Rate Post-Dialysis 62 BPM Sitting Heart Rate Pre-Dialysis 55 BPM Temperatu re Post-Dialysis 98.4 degF Standing Heart Rate Pre-Dialysis 57 BPM Temperature Pre-Dialysis 97.9 degF July 20, 2024 In-Center Hemodialysis Treatment [id number]:34:59.000Z [id number]:02:29.000Z BP Sitting (Pre-Dialysis) 169/74 mmHg BP Sitting (Post-Dialysis) 169/78 mmHg Concurrent Access: falseCentral Venous Catheter (CVC) Chest (Right) Arterial BP Standing (Pre-Dialysis) 142/65 mmHg Sitti ng Heart Rate Post-Dialysis 66 BPM Sitting Heart Rate Pre-Dialysis 58 BPM Temperatu re Post-Dialysis 98.3 degF Standing Heart Rate Pre-Dialysis 60 BPM Temperature Pre-Dialysis 97.8 degF July 18, 2024 In-Center Hemodialysis Treatment [id number]:05:11.000Z [id number]:36:26.000Z BP Sitting (Pre-Dialysis) 174/81 mmHg BP Sitting (Post-Dialysis) 160/76 mmHg Concurrent Access: falseCentral Venous Catheter (CVC) Chest (Right) Arterial Sitting Heart Rate Pre-Dialysis 60 BPM BP Standi ng (Post-Dialysis) 174/78 mmHg Temperature Pre-Dialysis 98 degF Sitting Heart Ra te Post-Dialysis 66 BPM Standing Heart Rate Post-Eva lysis 69 BPM Temperature Post-Dialysis 98 .4 degF July 16, 2024 In-Center Hemodialysis Treatment [id number]:06:57.000Z [id number]:06:57.000Z BP Sitting (Pre-Dialysis) 167/73 mmHg BP Sitting (Post-Dialysis) 184/80 mmHg Concurrent Access: falseCentral Venous Catheter (CVC) Chest (Right) Arterial BP Standing (Pre-Dialysis) 152/77 mmHg BP Standing (P ost-Dialysis) 150/82 mmHg Sitting Heart Rate Pre-Dialysis 77 BPM Sitting Heart Rate Post-Dialysis 70 BPM Standing Heart Rate Pre-Dialysis 80 BPM Standing Heart Rate Post-Dialysis 78 BPM Temperature Pre-Dialysis 98.4 degF Temperature Post -Dialysis 98.7 degF DIALYSIS ORDER Dialysis Procedure Orders Type of Dialysis Procedure Order Order Date/Time Observations In-Center Hemodialysis Treatment August 032024 Target Weight 93 kg Dialysate Flow Rate 800 mL/min Blood Flow Rate 400 mL/min Treatment Time 210 min(total) Max UF Rate 13 mL/kg/hr Base Sodium Dialysate Base Sodium 138 mE q/L dialysate_temp 37 C BiCarb Dialysate BiCarbonate 38 meq/L Access Concurrent No Arterial Access Central Venous [facility] (CVC) (Chest (Right)) Venous Access Central Venous [facility] (CVC) (Chest (Right)) Dialyzer Nipro Elisio 15H 126 4 [email or web address] Dialysate Bath Potassium Potassium 2 mEq /L Dialysate Bath Calcium Calcium 2.5 mEq/L In-Center Hemodialysis TreatmentAugust 13, 2024 Observation Value Target Weight 92 kg Dialysate Flow Rate 800 mL/min Blood Flow Rate 400 mL/min Treatment Time 210 min(total) Max UF Rate 13 mL/kg/hr Base Sodium Dialysate Base Sodium 138 mE q/L dialysate_temp 37 C BiCarb Dialysate BiCarbonate 38 meq/L Access Concurrent No Arterial Access Central Venous [facility] (CVC) (Chest (Right)) Venous Access Central Venous [facility] ter (CVC) (Chest (Right)) Dialyzer Nipro Elisio 15H 126 4 [email or web address] Dialysate Bath Potassium Potassium 2 mEq /L Dialysate Bath Calcium Calcium 2.5 mEq/L Results Adequacy Description Draw Date Result/Unit Status Ref Range Result Comments Creatinine [Mass/volume] in Serum or Plasma 2024-08-23 14:29:23 6 mg/dL F 0.7-1.3 Total Kt/V 2024-08-09 15:47:17 1.46 F TOTAL HOURS/WEEK DIALYSIS 2024-08-09 15:47:17 10 hrs F VM (KT/V MEAN VOL) 2024-08-09 15:47:17 42.6 F Std Renal KT/V 2024-08-09 15:47:17 N/A F PRESCRIBED DAYS/WEEK 2024-08-09 15:47:17 3 Day/Wk F TBW ([place]) 2024-08-09 15:47:17 44.71 Liters F nPCR 2024-08-09 15:47:17 1.01 G/KG/D F VT (KT/V TX VOL) 2024-08-09 15:47:17 41.2 L F PATIENT AGE 2024-08-09 15:47:17 78 Years F Residual kt/v 2024-08-09 15:47:17 F DIALYZER FLOW-QD 2024-08-09 15:47:17 800 mL/min F HEIGHT IN INCHES 2024-08-09 15:47:17 69 Inches F BLOOD FLOW-QWB 2024-08-09 15:47:17 377 F CURRENT KRU 2024-08-09 15:47:17 F LENGTH OF DIALYSIS 2024-08-09 15:47:17 211 min F spKt/V 2024-08-09 15:47:17 1.46 F WEIGHT - POST DAY 1 2024-08-09 15:47:17 91.8 kg F stdKT/V Total 2024-08-09 15:47:17 N/A F AMPUTATE FACTOR 2024-08-09 15:47:17 0 F URR% 2024-08-09 15:47:17 74 % F WEIGHT - PRE DAY 1 2024-08-09 15:47:17 91.9 kg F BSA ALLEN 2024-08-09 15:47:17 2.07 sq m F KT/V PRESCRIBED 2024-08-09 15:47:17 1.67 F eKt/V 2024-08-09 15:47:17 1.24 F WEIGHT (KG) 2024-08-09 15:47:17 91 kg F stdKt/V (DIAL) 2024-08-09 15:47:17 N/A F Dialyzer JUVENTINO 2024-08-09 15:47:17 1264 Calc F Urea nitrogen [Mass/volume] in Serum or Plasma --post dialysis 2024-08-09 15:45:29 14 mg/dL F 9.0-23.0 Urea nitrogen [Mass/volume] in Serum or Plasma 2024-08-09 15:17:21 53 mg/dL F 9.0-23.0 KT/V PRESCRIBED 2024-07-19 16:44:44 1.61 F eKt/V 2024-07-19 16:44:44 1.09 F TBW ([place]) 2024-07-19 16:44:44 45.01 Liters F Dialyzer JUVENTINO 2024-07-19 16:44:44 1264 Calc F WEIGHT - POST DAY 1 2024-07-19 16:44:44 92.7 kg F TOTAL HOURS/WEEK DIALYSIS 2024-07-19 16:44:44 6 hrs F Total Kt/V 2024-07-19 16:44:44 1.27 F WEIGHT (KG) 2024-07-19 16:44:44 93 kg F AMPUTATE FACTOR 2024-07-19 16:44:44 0 F spKt/V 2024-07-19 16:44:44 1.27 F PRESCRIBED DAYS/WEEK 2024-07-19 16:44:44 3 Day/Wk F PATIENT AGE 2024-07-19 16:44:44 78 Years F stdKT/V Total 2024-07-19 16:44:44 N/A F nPCR 2024-07-19 16:44:44 0.48 G/KG/D F stdKt/V (DIAL) 2024-07-19 16:44:44 N/A F URR% 2024-07-19 16:44:44 70 % F Std Renal KT/V 2024-07-19 16:44:44 N/A F BSA ALLEN 2024-07-19 16:44:44 2.09 sq m F WEIGHT - PRE DAY 1 2024-07-19 16:44:44 92.8 kg F VM (KT/V MEAN VOL) 2024-07-19 16:44:44 43 F LENGTH OF DIALYSIS 2024-07-19 16:44:44 207 min F DIALYZER FLOW-QD 2024-07-19 16:44:44 800 mL/min F CURRENT KRU 2024-07-19 16:44:44 F Residual kt/v 2024-07-19 16:44:44 F BLOOD FLOW-QWB 2024-07-19 16:44:44 380 F HEIGHT IN INCHES 2024-07-19 16:44:44 69 Inches F VT (KT/V TX VOL) 2024-07-19 16:44:44 46.5 L F Urea nitrogen [Mass/volume] in Serum or Plasma --post dialysis 2024-07-19 16:43:15 13 mg/dL F 9.0-23.0 Urea nitrogen [Mass/volume] in Serum or Plasma 2024-07-19 16:16:18 44 mg/dL F 9.0-23.0 nPCR 2024-07-17 15:25:22 0.35 G/KG/D F KT/V PRESCRIBED 2024-07-17 15:25:22 1.19 F PRESCRIBED DAYS/WEEK 2024-07-17 15:25:22 3 Day/Wk F LENGTH OF DIALYSIS 2024-07-17 15:25:22 170 min F URR% 2024-07-17 15:25:22 63 % F DIALYZER FLOW-QD 2024-07-17 15:25:22 500 mL/min F AMPUTATE FACTOR 2024-07-17 15:25:22 0 F TOTAL HOURS/WEEK DIALYSIS 2024-07-17 15:25:22 2 hrs F VT (KT/V TX VOL) 2024-07-17 15:25:22 41.8 L F Residual kt/v 2024-07-17 15:25:22 F Total Kt/V 2024-07-17 15:25:22 1.04 F Std Renal KT/V 2024-07-17 15:25:22 N/A F HEIGHT IN INCHES 2024-07-17 15:25:22 69 Inches F WEIGHT (KG) 2024-07-17 15:25:22 96 kg F Dialyzer JUVENTINO 2024-07-17 15:25:22 1264 Calc F BSA ALLEN 2024-07-17 15:25:22 2.12 sq m F eKt/V 2024-07-17 15:25:22 0.87 F spKt/V 2024-07-17 15:25:22 1.04 F WEIGHT - PRE DAY 1 2024-07-17 15:25:22 93.5 kg F CURRENT KRU 2024-07-17 15:25:22 F BLOOD FLOW-QWB 2024-07-17 15:25:22 354 F stdKt/V (DIAL) 2024-07-17 15:25:22 N/A F WEIGHT - POST DAY 1 2024-07-17 15:25:22 92.9 kg F PATIENT AGE 2024-07-17 15:25:22 78 Years F TBW ([place]) 2024-07-17 15:25:22 45.08 Liters F stdKT/V Total 2024-07-17 15:25:22 N/A F VM (KT/V MEAN VOL) 2024-07-17 15:25:22 41.8 F Urea nitrogen [Mass/volume] in Serum or Plasma 2024-07-17 15:23:29 46 mg/dL F 9.0-23.0 Creatinine [Mass/volume] in Serum or Plasma 2024-07-17 15:23:29 6.57 mg/dL F 0.7-1.3 Urea nitrogen [Mass/volume] in Serum or Plasma --post dialysis 2024-07-17 14:25:17 17 mg/dL F 9.0-23.0 Anemia Description Draw Date Result/Unit Status Ref Range Result Comments IRON SATURATION 2024-08-28 23:35:26 27 % F 21.0-49.0 TIBC 2024-08-28 23:35:26 219 ug/dL F 250.0-425.0 Iron [Mass/volume] in Serum or Plasma 2024-08-28 23:26:11 60 ug/dL F 65.0-175.0 Iron binding capacity.unsaturated [Mass/volume] in Serum or Plasma 2024-08-28 23:26:11 159 ug/dL F 75.0-360.0 Ferritin [Mass/volume] in Serum or Plasma 2024-08-28 19:24:50 311 ng/mL F 22.0-322.0 HCT CALC HGBX3 2024-08-23 15:00:22 30.9 % F 42.0-52.0 Hemoglobin [Mass/volume] in Blood 2024-08-23 14:59:20 10.3 g/dL F 14.0-18.0 MCH [Entitic mass] by Automated count 2024-08-23 14:59:20 27.8 pg F 25.9-34.2 MCHC [Mass/volume] by Automated count 2024-08-23 14:59:20 31.8 g/dL F 29.6-35.3 Erythrocytes [#/volume] in Blood by Automated count 2024-08-23 14:59:20 3.72 x 10^6 cells/uL F 4.6-6.2 Hematocrit [Volume Fraction] of Blood by Automated count 2024-08-23 14:59:20 32.5 % F 41.0-53.0 Erythrocyte distribution width [Ratio] by Automated count 2024-08-23 14:59:18 17.5 % F 11.0-15.0 Platelets [#/volume] in Blood by Automated count 2024-08-23 14:59:18 180 x 10^3 cells/uL F 140.0-450.0 MCV [Entitic volume] by Automated count 2024-08-23 14:59:18 87.3 fL F 80.0-100.0 HCT CALC HGBX3 2024-08-16 14:37:20 29.7 % F 42.0-52.0 Hemoglobin [Mass/volume] in Blood 2024-08-16 14:36:11 9.9 g/dL F 14.0-18.0 HCT CALC HGBX3 2024-08-09 15:35:49 31.2 % F 42.0-52.0 Hemoglobin [Mass/volume] in Blood 2024-08-09 15:35:16 10.4 g/dL F 14.0-18.0 HCT CALC HGBX3 2024-08-02 14:42:49 31.8 % F 42.0-52.0 Hemoglobin [Mass/volume] in Blood 2024-08-02 14:42:11 10.6 g/dL F 14.0-18.0 IRON SATURATION 2024-07-27 08:06:24 15 % F 21.0-49.0 TIBC 2024-07-27 08:06:24 236 ug/dL F 250.0-425.0 Iron [Mass/volume] in Serum or Plasma 2024-07-27 07:10:03 35 ug/dL F 65.0-175.0 Iron binding capacity.unsaturated [Mass/volume] in Serum or Plasma 2024-07-27 07:10:03 201 ug/dL F 75.0-360.0 Ferritin [Mass/volume] in Serum or Plasma 2024-07-27 06:35:36 62 ng/mL F 22.0-322.0 HCT CALC HGBX3 2024-07-26 20:05:11 31.2 % F 42.0-52.0 Hemoglobin [Mass/volume] in Blood 2024-07-26 20:04:16 10.4 g/dL F 14.0-18.0 IRON SATURATION 2024-07-25 00:14:08 26 % F 21.0-49.0 TIBC 2024-07-25 00:14:08 262 ug/dL F 250.0-425.0 Iron [Mass/volume] in Serum or Plasma 2024-07-24 22:39:17 67 ug/dL F 65.0-175.0 Iron binding capacity.unsaturated [Mass/volume] in Serum or Plasma 2024-07-24 22:39:17 195 ug/dL F 75.0-360.0 Ferritin [Mass/volume] in Serum or Plasma 2024-07-24 22:18:20 67 ng/mL F 22.0-322.0 HCT CALC HGBX3 2024-07-24 08:33:22 see comments F 42.0-52.0 Unable to Calculate. Hemoglobin [Mass/volume] in Blood 2024-07-24 08:24:25 F Canceled - Specimen not received 5 days past draw date HCT CALC HGBX3 2024-07-17 16:51:10 32.1 % F 42.0-52.0 MCH [Entitic mass] by Automated count 2024-07-17 16:50:15 26 pg F 25.9-34.2 MCHC [Mass/volume] by Automated count 2024-07-17 16:50:15 30.1 g/dL F 29.6-35.3 Erythrocytes [#/volume] in Blood by Automated count 2024-07-17 16:50:15 4.12 x 10^6 cells/uL F 4.6-6.2 Hematocrit [Volume Fraction] of Blood by Automated count 2024-07-17 16:50:15 35.5 % F 41.0-53.0 MCV [Entitic volume] by Automated count 2024-07-17 16:50:15 86.3 fL F 80.0-100.0 Reticulocytes/100 erythrocytes in Blood by Automated count 2024-07-17 16:50:15 4.79 % F 0.7-2.5 Erythrocyte distribution width [Ratio] by Automated count 2024-07-17 16:50:15 17.8 % F 11.0-15.0 Hemoglobin [Mass/volume] in Blood 2024-07-17 16:50:15 10.7 g/dL F 14.0-18.0 Platelets [#/volume] in Blood by Automated count 2024-07-17 16:50:15 211 x 10^3 cells/uL F 140.0-450.0 IRON SATURATION Iron binding capacity.unsaturated [Mass/volume] in Serum or Plasma TIBC Iron [Mass/volume] in Serum or Plasma FluidBP Description Draw Date Result/Unit Status Ref Range Result Comments Sodium [Moles/volume] in Serum or Plasma 2024-08-24 00:03:06 142 mEq/L F 132.0-146.0 Sodium [Moles/volume] in Serum or Plasma 2024-07-18 07:02:30 142 mEq/L F 132.0-146.0 General Description Draw Date Result/Unit Status Ref Range Result Comments Chloride [Moles/volume] in Serum or Plasma 2024-08-24 00:03:06 108 mEq/L F 99.0-109.0 Aspartate aminotransferase [Enzymatic activity/volume] in Serum or Plasma 2024-08-23 14:29:23 22 U/L F 0.0-33.0 Alanine aminotransferase [Enzymatic activity/volume] in Serum or Plasma 2024-08-23 14:29:23 15 U/L F 10.0-49.0 Alanine aminotransferase [Enzymatic activity/volume] in Serum or Plasma 2024-07-26 18:25:30 15 U/L F 10.0-49.0 Chloride [Moles/volume] in Serum or Plasma 2024-07-18 07:02:30 109 mEq/L F 99.0-109.0 Aluminum [Mass/volume] in Serum or Plasma 2024-07-17 17:37:32 10 ug/L F 0.0-9.0 Aspartate aminotransferase [Enzymatic activity/volume] in Serum or Plasma 2024-07-17 15:23:29 23 U/L F 0.0-33.0 Alanine aminotransferase [Enzymatic activity/volume] in Serum or Plasma InfectionVaccination Description Draw Date Result/Unit Status Ref Range Result Comments Lymphocytes/100 leukocytes in Blood by Automated count 2024-08-23 14:59:20 19.3 % F Eosinophils/100 leukocytes in Blood by Automated count 2024-08-23 14:59:20 6.4 % F Neutrophils/100 leukocytes in Blood by Automated count 2024-08-23 14:59:20 68.4 % F Basophils/100 leukocytes in Blood by Automated count 2024-08-23 14:59:20 0.6 % F Monocytes/100 leukocytes in Blood by Automated count 2024-08-23 14:59:20 5.3 % F Basophils [#/volume] in Blood by Automated count 2024-08-23 14:59:20 45 Cells/uL F 0.0-400.0 Eosinophils [#/volume] in Blood by Automated count 2024-08-23 14:59:20 479 Cells/uL F 0.0-700.0 Leukocytes [#/volume] in Blood by Automated count 2024-08-23 14:59:20 7.5 x 10^3 cells/uL F 4.0-11.0 Lymphocytes [#/volume] in Blood by Automated count 2024-08-23 14:59:20 1444 Cells/uL F 620.0-3660.0 Monocytes [#/volume] in Blood by Automated count 2024-08-23 14:59:18 396 Cells/uL F 0.0-1100.0 Neutrophils [#/volume] in Blood by Automated count 2024-08-23 14:59:18 5116 Cells/uL F 2000.0-8800.0 Leukocytes [#/volume] in Blood by Automated count 2024-07-17 16:50:15 9.4 x 10^3 cells/uL F 4.0-11.0 Lymphocytes [#/volume] in Blood by Automated count 2024-07-17 16:50:15 1716 Cells/uL F 620.0-3660.0 Monocytes/100 leukocytes in Blood by Automated count 2024-07-17 16:50:15 6 % F Neutrophils/100 leukocytes in Blood by Automated count 2024-07-17 16:50:15 69.5 % F Eosinophils/100 leukocytes in Blood by Automated count 2024-07-17 16:50:15 5.8 % F Basophils/100 leukocytes in Blood by Automated count 2024-07-17 16:50:15 0.5 % F Lymphocytes/100 leukocytes in Blood by Automated count 2024-07-17 16:50:15 18.2 % F Monocytes [#/volume] in Blood by Automated count 2024-07-17 16:50:15 566 Cells/uL F 0.0-1100.0 Basophils [#/volume] in Blood by Automated count 2024-07-17 16:50:15 47 Cells/uL F 0.0-400.0 Eosinophils [#/volume] in Blood by Automated count 2024-07-17 16:50:15 547 Cells/uL F 0.0-700.0 Neutrophils [#/volume] in Blood by Automated count 2024-07-17 16:50:15 6554 Cells/uL F 2000.0-8800.0 MineralBone Disorder Description Draw Date Result/Unit Status Ref Range Result Comments Alkaline phosphatase [Enzymatic activity/volume] in Serum or Plasma 2024-08-23 14:29:23 121 U/L F 46.0-116.0 CA CORRECTED 2024-08-09 21:00:02 8.6 mg/dL F CA/PHOS PRODUCT 2024-08-09 20:58:15 51 Calc F 21.0-53.0 CA*PO4 CORRCTD 2024-08-09 20:58:15 54.1 Calc F 21.0-53.0 Calcium [Mass/volume] in Serum or Plasma 2024-08-09 19:41:50 8.1 mg/dL F 8.7-10.4 Phosphate [Mass/volume] in Serum or Plasma 2024-08-09 19:41:50 6.3 mg/dL F 2.4-5.1 Parathyrin.intact [Mass/volume] in Serum or Plasma 2024-08-09 16:43:30 308 pg/mL F 18.0-80.0 CA CORRECTED 2024-07-27 08:09:14 8 mg/dL F Calcium [Mass/volume] in Serum or Plasma 2024-07-27 07:10:03 7.5 mg/dL F 8.7-10.4 CA CORRECTED 2024-07-19 21:14:51 8.3 mg/dL F CA*PO4 CORRCTD 2024-07-19 21:13:02 48.9 Calc F 21.0-53.0 CA/PHOS PRODUCT 2024-07-19 21:13:02 46 Calc F 21.0-53.0 Phosphate [Mass/volume] in Serum or Plasma 2024-07-19 19:51:38 5.9 mg/dL F 2.4-5.1 Calcium [Mass/volume] in Serum or Plasma 2024-07-19 19:51:38 7.8 mg/dL F 8.7-10.4 Parathyrin.intact [Mass/volume] in Serum or Plasma 2024-07-19 16:51:19 525 pg/mL F 18.0-80.0 CA CORRECTED 2024-07-18 09:32:06 7.7 mg/dL F CA*PO4 CORRCTD 2024-07-18 09:29:53 61.4 Calc F 21.0-53.0 CA/PHOS PRODUCT 2024-07-18 09:29:53 57.6 Calc F 21.0-53.0 Calcium [Mass/volume] in Serum or Plasma 2024-07-18 07:02:30 7.2 mg/dL F 8.7-10.4 Phosphate [Mass/volume] in Serum or Plasma 2024-07-18 07:02:30 8 mg/dL F 2.4-5.1 Parathyrin.intact [Mass/volume] in Serum or Plasma 2024-07-17 23:40:26 525 pg/mL F 18.0-80.0 Alkaline phosphatase [Enzymatic activity/volume] in Serum or Plasma 2024-07-17 15:23:29 79 U/L F 46.0-116.0 Nutrition Description Draw Date Result/Unit Status Ref Range Result Comments Potassium [Moles/volume] in Serum or Plasma 2024-08-24 00:03:06 4.8 mEq/L F 3.5-5.5 GLOBULIN 2024-08-23 14:30:09 2 g/dL F 0.9-5.0 A/G RATIO 2024-08-23 14:30:09 1.8 Calc F 1.0-2.5 Lactate dehydrogenase [Enzymatic activity/volume] in Serum or Plasma 2024-08-23 14:29:23 217 U/L F 120.0-246.0 Bicarbonate [Moles/volume] in Serum or Plasma 2024-08-23 14:29:23 24 mEq/L F 20.0-31.0 Albumin [Mass/volume] in Serum or Plasma by Bromocresol green (BCG) dye binding method 2024-08-23 14:29:23 3.5 g/dL F 3.4-4.8 Protein [Mass/volume] in Serum or Plasma 2024-08-23 14:29:23 5.5 g/dL F 5.7-8.2 Glucose [Mass/volume] in Serum or Plasma 2024-08-23 14:29:23 334 mg/dL F 70.0-99.0 Potassium [Moles/volume] in Serum or Plasma 2024-07-18 07:02:30 4.1 mEq/L F 3.5-5.5 GLOBULIN 2024-07-17 15:24:32 2.2 g/dL F 0.9-5.0 A/G RATIO 2024-07-17 15:24:32 1.5 Calc F 1.0-2.5 Albumin [Mass/volume] in Serum or Plasma by Bromocresol green (BCG) dye binding method 2024-07-17 15:23:29 3.4 g/dL F 3.4-4.8 Protein [Mass/volume] in Serum or Plasma 2024-07-17 15:23:29 5.6 g/dL F 5.7-8.2 Glucose [Mass/volume] in Serum or Plasma 2024-07-17 15:23:29 243 mg/dL F 70.0-99.0 Lactate dehydrogenase [Enzymatic activity/volume] in Serum or Plasma 2024-07-17 15:23:29 281 U/L F 120.0-246.0 Bicarbonate [Moles/volume] in Serum or Plasma 2024-07-17 15:23:29 25 mEq/L F 20.0-31.0 Encounters No encounter information to report Immunizations Ordered Immunization Name Filled Immunization Name Date Status Comments Refusal Reason Influenza Vaccination 2024-07-31 06:00:00 TST-PPD intradermal 2024-07-30 17:00:00 TST-PPD intradermal 2024-07-16 19:38:38 Hepatitis B Vaccination 2024-07-16 06:00:00 pneumococcal polysaccharide PPV23 2020-03-09 05:00:00 Pneumococcal conjugate PCV 13 2018-08-09 06:00:00 Plan of Treatment Planned Activity Provider Planned Date Details Commen ts Future Scheduled Test Onofre Aguilar 2024-10-03 05:00:00 Ferritin [Mass/volume] in Serum or Plasma [code = 2276-4] Diagnostic Test Pending Onofre Aguilar 2024-07-18 07:34:24 Hemoglobin [Mass/volume] in Blood [code = 718-7] Diagnostic Test Pending Onofre Aguilar 2024-07-16 07:29:47 Parathyrin.intact [Mass/volume] in Serum or Plasma [code = 2731-8] Diagnostic Test Pending Onofre Aguilar 2024-07-16 07:28:53 Alanine aminotransferase [Enzymatic activity/volume] in Serum or Plasma [code = 1742-6] Diagnostic Test Pending Onofre Aguilar 2024-07-15 16:08:37 Sodium [Moles/volume] in Serum or Plasma [code = 2951-2] Diagnostic Test Pending Onofre Aguilar 2024-07-15 16:06:12 Glucose [Mass/volume] in Serum or Plasma [code = 2345-7] Diagnostic Test Pending Onofre Aguilar 2024-07-15 16:05:35 Aluminum [Mass/volume] in Serum or Plasma [code = 5574-9] Diagnostic Test Pending Onofre Aguilar 2024-07-15 16:05:27 Albumin [Mass/volume] in Serum or Plasma by Bromocresol green (BCG) dye binding method [code = 26174-5] Diagnostic Test Pending Onofre Aguilar 2024-07-15 16:05:51 Creatinine [Mass/volume] in Serum or Plasma [code = 2160-0] Diagnostic Test Pending Onofre Aguilar 2024-08-19 06:16:22 Hemoglobin [Mass/volume] in Blood [code = 718-7] Future Scheduled Test Onofre Aguilar 2024-10-03 05:00:00 Ferritin [Mass/volume] in Serum or Plasma [code = 2276-4] Diagnostic Test Pending Onofre Aguilar [facility] 2024-08-18 05:00:00 In-Center Hemodialysis Treatment [code = IWG353] Diagnostic Test Pending Onofre Byrne [facility] 2024-08-13 19:50:24 In-Center Hemodialysis Treatment [code = AIM217] Diet Order [facility] July 25, 2024 Diet Calorie 25 kcal/kg Fluid Value 2000 mL/d Phosphorus Value 950 mg/d Potassium Value 2000 mg/d Protein Value 1.2 gm/kg Sodium Value 2000 mg/d Calculated Weight 78 kg
--- OUTSIDE RECORDS SUMMARY | 2024-09-05 14:41 | XMS_ITS | Encounter Summary ---
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 [id number] [place] [address] 09/20/2024 7:30 AM CDT - 09/20/2024 10:40 AM CDT Surgery [facility] [address] [place] [address] Godfrey Villarreal MD [address] [facility] [id number] [place] [address] CREATION ARTERIOVENOUS FISTULA - ARM Scheduled Procedures Name Priority Associated Diagnoses Date/Ti me CREATION ARTERIOVENOUS FISTULA - ARM ESRD (end stage renal disease) on dialysis (HCC) 09/20/2024 7:30 AM CDT documented as of this encounter Procedures Procedure Name Priority Date/Time Associated Diagnosis Comments SCAN - LABS 11/08/2022 documented in this encounter Results * SCAN - LABS (11/08/2022) us Provider Scanning Final Result documented in this encounter Visit Diagnoses Not on filedocumented in this encounter Additional Health Concerns Infection Onset Date Last Indicated Resolved Time COVID: Suspected 10/09/2023 10/09/2023 10/09/2023 2:41 PM CDT COVID: Suspected 07/09/2024 07/09/2024 07/09/2024 11:36 AM DONATION SPECIALIST COVID: Suspected 07/09/2024 07/09/2024 07/09/2024 4:05 PM DONATION SPECIALIST documented as of this encounter Care Teams Day Care Provider Relationship Specialty Start [place] [address] [address] PCP - General Family Practice 04/26/22 Marcella Taylor MD [address] [place] [address] [address] [place] [address] Medical Oncologist/Equine Vet Medical Oncology 08/08/20 documented as of this encounter
--- OUTSIDE RECORDS SUMMARY | 2024-09-05 14:41 | XMS_ITS | Encounter Summary ---
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 Gender Identity Not on file Sexual Orientation Not on file documented as of this encounter Plan of Treatment Upcoming Encounters Date Type Department Care Team (Latest Contact Info) Description 09/20/2024 7:30 AM CDT Hospital Encounter [facility] Operating Room [address] [place] [address] Godfrey Villarreal MD [address] [facility] [id number] [place] [address] 09/20/2024 7:30 AM CDT - 09/20/2024 10:40 AM CDT Surgery [facility] Operating Room [address] [place] [address] Godfrey Villarreal MD [address] [facility] [address] [place] [address] CREATION ARTERIOVENOUS FISTULA - ARM Scheduled Procedures Name Priority Associated Diagnoses Date/Ti me CREATION ARTERIOVENOUS FISTULA - ARM ESRD (end stage renal disease) on dialysis (HCC) 09/20/2024 7:30 AM CDT documented as of this encounter Procedures Procedure Name Priority Date/Time Associated Diagnosis Comments SCAN - LABS 02/14/2023 documented in this encounter Results * SCAN - LABS (02/14/2023) us Provider Scanning Final Result documented in this encounter Visit Diagnoses Not on filedocumented in this encounter Additional Health Concerns Infection Onset Date Last Indicated Resolved Time COVID: Suspected 10/09/2023 10/09/2023 10/09/2023 2:41 PM CDT COVID: Suspected 07/09/2024 07/09/2024 07/09/2024 11:36 AM COSMETOLOGY PROFESSOR COVID: Suspected 07/09/2024 07/09/2024 07/09/2024 4:05 PM COSMETOLOGY PROFESSOR documented as of this encounter Care Teams Ranch Cook Relationship Specialty [place] [address] [address] PCP - General Family Practice 04/26/22 Marcella Taylor MD [address] [place] [address] [address] [place] [address] Medical Oncologist/Fraud Manager Medical Oncology 08/08/20 documented as of this encounter
--- OUTSIDE RECORDS SUMMARY | 2024-09-05 14:41 | XMS_ITS | Encounter Summary ---
Author Organization [facility] Address [facility]ly [facility] [place] [address] Care Team Providers Care Doorkeeper Name Role Phone Leonidas Banks MD, Anselmo Unavailable [phone] Justa Bueno- Unavailable [phone] Anselmo Sampson MD Primary Care Provider [phone] Encounter Details Date Type Department Care Team (Late Contact Info) Description 02/16/2023 [employer] Message Enc [facility] [address] [place] [id number] [facility] Provider diuretic med/water pill Social History Tobacco Use Types Packs/Day Years Used Date Smoking Tobacco: Former Cigarettes Q uit: 1970 Passive Smoke Exposure: Past Smokeless Tobacco: Never Alcohol Use Standard Drinks/Week Comments No 0 (1 standard drink = 0.6 oz pur e alcohol) PHQ-2 Answer Date Recorded Patient Health Questionnaire-2 Score 0 10/17/2022 Sex and Gender Information Value Date Recorded Sex Assigned at Male 07/11/2024 11:20 AM GARMENT 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 SUPERVISOR Legal Sex Male 5:54 PM CDT Gender Identity Male 04/25/2022 6:03 AM GARMENT 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 SUPERVISOR Sexual Orientation Not on file Occupation Industry Job Start Date Job End Date Retired Not on file Not on file Not on file documented as of this encounter Plan of Treatment Upcoming Encounters Date Type Department Care Team (Late Contact Info) Description 09/30/2024 2:15 PM CDT Office Visit [facility] [place] [address] [facility] [address] [place] [address] Andrea Palomares MD [facility], [address] [place] [address] documented as of this encounter Visit Diagnoses Not on filedocumented in this encounter Care Teams Doorkeeper Relationship Specialty Start [place] [address] [place] [address] PCP - General FAMILY PRACTICE 03/08/22 Anselmo Lauren MD CARDIOVASCULAR DISEASE 01/18/17 Justa Bueno, [facility]- [address] [facility] [address] [place] [address] NURSE PRACTITIONER 01/18/17 documented as of this encounter
--- OUTSIDE RECORDS SUMMARY | 2024-09-05 14:41 | XMS_ITS | Continuity of Care Document ---
Author Name [facility] Organization [facility] Care Team Providers Care Production Counter Name Role Phone [facility] Unavailable Unavailable Problems Combined list of problems from Department of [facility] and [facility] facilities. It does not include entries that were removed or entered in error. Problem Status Onset Date Problem Type Date of Resolution Comments Source Diagnosis: ICD-10-CM H90.3 Sensorineural hearing loss, bilateral Active Diagnosis [facility] Immunizations Combined list of available immunizations from the Department of [facility] and [facility] facilities. Immunization Series Date Given Administered By Site Reaction Lot Number CVX Code Drug Thin Film Technician Status Comments Source COVID-19 (PFIZER), MRNA, LNP-S, PF, 30 MCG/0.3 ML DOSE 2 2020 208 complet ed PFR; [id number]; 1 [facility] COVID-19 (PFIZER), MRNA, LNP-S, PF, 30 MCG/0.3 ML DOSE 1 2020 208 complet ed PFR; [id number]; 1 [facility] Encounters Combined list of: 1) Encounters from Department of Veterans Affairs facilities going backup to the last 18 months, not all VA inpatient encounters are included; 2) Encounters from the Department of [facility] facilities going backup to 280 months. Location Location Details Encounter Type Encounter Number Reason For Visit Attending Provider ADM Date DC Date Status Disposition Source [facility] HEARING AID REPAIR/MOD IFYING [id number] Diagnos is: ICD-10- CM H90.3 Sensori neural hearing loss, MICAELA Saba 12/03 [facility] Outpatient Encounter [id number] 06/20 [facility]
--- OUTSIDE RECORDS SUMMARY | 2024-09-05 14:41 | XMS_ITS | Encounter Summary ---
Author Organization [facility] Address [address] [place] [address] Care Team Providers Care Oil Change Technician Name Role Phone Leonidas Banks MD, Anselmo Unavailable [phone] [facility] [phone] Anselmo Sampson MD Primary Care Provider [phone] Encounter Details Date Type Department Care Team (Late st Contact Info) Description 11/30/2022 MyChart Message Enc [facility] [address] [place] [address] [employer], [facility] Provider Air Quality Message Social History Tobacco Use Types Packs/Day Years Used Date Smoking Tobacco: Former Cigarettes Q uit: 1970 Passive Smoke Exposure: Past Smokeless Tobacco: Never Alcohol Use Standard Drinks/Week Comments No 0 (1 standard drink = 0.6 oz pur e alcohol) PHQ-2 Answer Date Recorded Patient Health Questionnaire-2 Score 0 10/17/2022 Sex and Gender Information Value Date Recorded Sex Assigned at Male 07/11/2024 11:20 AM VOCATIONAL COUNSELOR Legal Sex Male 5:54 PM CDT Gender Identity Male 04/25/2022 6:03 AM VOCATIONAL COUNSELOR Sexual Orientation Not on file Occupation Industry Job Start Date Job End Date Retired Not on file Not on file Not on file COVID-19 Exposure Response Date Recorded In the last 10 days, have yo u been in contact with someone who was confirmed or suspected to have Coronavirus/COVID-19? No / Unsure 11/16/2022 7:32 AM CDT documented as of this encounter Plan of Treatment Upcoming Encounters Date Type Department Care Team (Late st Contact Info) Description 09/30/2024 2:15 PM CDT Office Visit [facility] [address] [place] [address] Andrea Palomares MD [facility], [address] [place] [address] documented as of this encounter Visit Diagnoses Not on filedocumented in this encounter Care Teams Oil Change Technician Relationship Specialty Start [place] [address] [place] [address] PCP - General FAMILY PRACTICE 03/08/22 Anslemo Lauren MD CARDIOVASCULAR DISEASE 01/18/17 Justa Bueno, ANP- [address] [facility] [address] [place] [address] NURSE PRACTITIONER 01/18/17 documented as of this encounter
--- OUTSIDE RECORDS SUMMARY | 2024-09-05 14:41 | XMS_ITS | Data Portability ---
Author Organization [facility], Main Office Address [address] [place] [address] Care Team Providers Care Scheduling Analyst Name Role Phone AIMEE VILLAVICENCIO Primary Care Provider Assessment No assessment recorded. Plan of Treatment Reminders Order Date Submit Date Provider Last Modified By Organization Details Last Modified Time Details Appointments None recorded. Lab CMP, serum or plasma 2022 023 [facility] (Lab), [address] [place], [address], 3 11:24:43 HbA1c (hemoglobin A1c), blood 2022 023 [facility] (Lab), [address] [facility] [place], [address], 3 10:08:31 microalbumi n/creatinin e, mass ratio, urine 2022 023 [facility] (Lab), [address] [facility] [place], [address], 3 10:07:27 TSH + free T4, serum 2022 023 [facility] (Lab), [address] [facility] [place], [address], 3 11:32:36 Referral None recorded. Procedures None recorded. Surgeries None recorded. Imaging None recorded. Medication Orders Tresiba FlexTouch U-100 insulin 100 unit/mL (3 mL) subcutaneou s pen [address] [facility]/Pharmacy #[id number], [address] [place], [address], 3 11:22:41 Fiasp FlexTouch U-100 Insulin 100 unit/mL (3 mL) subcutaneou s pen [address] [facility]/Pharmacy #[id number], [address] [place], [address], 3 11:38:50 Patient TargetsNo targets recorded. Patient InstructionsNo instructions recorded. Reason for Referral None Reported. Results Created Date Observation Date Name Description Value Unit Range Abnormal Flag Note LastModifiedBy Organization Detail LastModifiedTime Result Notes None recorded. Problems Name Problem SNOMED Code Status Onset Date Resolution Date Notes Provider Name and Address Organization Details Recorded Time Uncontrolled type 2 diabetes mellitus 081338024 Active 2022 Not Available [facility] 3 17:39:17 Well controlled type 2 diabetes mellitus 965610209 Active 2022 Not Available [facility] 3 17:39:18 Problem Notes None recorded. Medical Equipment None Reported. Allergies No known drug allergies Medications Name Sig Start Date Stop Date Status Note LastModified by Organization Details LastModified Time losartan 50 mg tablet Take 1 tablet every day by oral route. 01/09 completed Not Available Not Available Not Available furosemide 40 mg tablet TAKE 1 TABLET BY MOUTH EVERY DAY active Not Available Not Available No t Available carvedilol 25 mg tablet Take 2 tablets every day by oral route for 90 days. active Not Available Not Available No t Available doxycycline hyclate 100 mg capsule TAKE 1 CAPSULE BY MOUTH TWICE A DAY FOR 10 DAYS active Not Available Not Available No t Available clobetasol 0.05 % topical cream APPLY TOPICALLY TWICE A DAY active Not Available Not Available No t Available amlodipine 5 mg tablet active Not Available Not Available Not Available OneTouch Ultra Test strips USE 3 TIMES A DAY 01/09 completed Not Available Not Available Not Available colesevelam 625 mg tablet active Not Available Not Available Not Available cyanocobala min (vit B-12) 1,000 mcg/mL injection solution active Not Available Not Available Not Available glimepiride 4 mg tablet 01/09 completed Not Available Not Available Not Available hydralazine 50 mg tablet active Not Available Not Available Not Available sodium polystyrene sulfonate oral powder TAKE BY MOUTH ONCE FOR 1 DOSE active Not Available Not Available No t Available Asprin Ec Low Dose 81 mg tablet,jose carlos yed release Take 1 tablet every day by oral route. active Not Available Not Available No t Available OneTouch UltraSoft Lancets USE DIRECTED 3 TIMES A DAY active Not Available Not Available No t Available BD Ultra-Fine Mini Pen Needle 31 gauge x 3/16 INJECT INSULIN UP TO 4 TIMES DAILY BEFORE MEALS AND BEDTIME X 90 DAYS active Not Available Not Available No t Available sunitinib malate 25 mg capsule active Not Available Not Available N ot Available BD Ultra-Fine Short Pen Needle 31 gauge x 5/16 USE ONCE DAILY active Not Available Not Available No t Available Januvia 100 mg tablet 11/25 completed Not Available Not Available Not Available Lantus Solostar U-100 Insulin 100 unit/mL (3 mL) subcutaneou s pen SUBCUTANE OUS INJECT 45-50 UNITS EVERY DAY 01/09 completed Not Available Not Available Not Available Livalo 4 mg tablet active Not Available Not Available Not Available Tresiba FlexTouch U-100 insulin 100 unit/mL (3 mL) subcutaneou s pen INJECT 10 UNITS EVERY DAY BY SUBCUTANE OUS ROUTE AT BEDTIME FOR 90 DAYS. active Not Available Not Available No t Available Fiasp FlexTouch U-100 Insulin 100 unit/mL (3 mL) subcutaneou s pen INJECT 4 UNITS 3 TIMES A DAY BY SUBCUTANE OUS ROUTE BEFORE MEALS FOR 90 DAYS. active Not Available Not Available No t Available Vitals Date Recorded Body weight Body temperature Heart rate Systolic blood pressure Diastolic blood pressure Provider Name and Address Organization Details Last Updated DateTime 11/25/2022 17141.4 6 g 97.5 [degF] 59 /min 167 mm[Hg] 72 mm[Hg] MATTHIAS Graves [place] [facility] [place] [employer] [facility] 3 10:49:15 Date Recorded Body weight Body mass index (BMI) Body height Respiratory rate Body temperature Heart rate Systolic blood pressure Diastolic blood pressure Provider Name and Address Organization Details Last Updated DateTime 3 96085.6 1 g 30.6 kg/m2 177.8 cm 14 /min 97.8 [degF] 55 /min 145 mm[Hg] 71 mm[Hg] Joann Servin RN [employer] 12:43:00 Social History Question Answer Notes LastModified by [email or web address] Details LastModified Time Tobacco Smoking Status Former Smoker Letha Ramsey, RMA null, [employer] 11/25/2022 10:51:36 What Is Your Level Of Alcohol Consumption? None Information not available 11/25/2022 Are You Blind Or Do You Have Difficulty Seeing? No Information not available 11/25/2022 In The 14 Days Before Symptom Onset, Have You Had Close Contact With A Laboratory-confir med COVID-19 While That Case Was Ill? No Information not available 11/25/2022 In The 14 Days Before Symptom Onset, Have You Had Close Contact With A Person Who Is Under Investigation For COVID-19 While That Person Was Ill? No Information not available 11/25/2022 Are You Deaf Or Do You Have Serious Difficulty Hearing? Yes Information not available 11/25/2022 What Type Of Diet Are You Following? REGULAR Try To Limit Salt And Sugar Information not available 11/25/2022 When Did You Quit Smoking? 16+yearssin celastcigar ette Information not available 11/25/2022 Do You Use Any Illicit Or Recreational Drugs? No Information not available 11/25/2022 Have You Recently Traveled Abroad? No Information not available 11/25/2022 Do You Have Any Dietary Restrictions? No Information not available 11/25/2022 Sex: Unknown Functional Status Question Answer Note LastModified by [email or web address] Details LastModified Time Do you have difficulty walking or climbing stairs? No Information not available 11/25/2022 Do you have transportation difficulties? No Information not available 11/25/2022 Are you able to walk? YESWOREST Information not available 11/25/2022 Do you have difficulty doing errands alone? No Information not available 11/25/2022 Are you able to care for yourself? Yes Information n ot available 11/25/2022 Do you have difficulty dressing or bathing? No Information not available 11/25/2022 What is your exercise level? Occasional Information not available 11/25/2022 Mental Status Question Answer Note LastModified by Organization D etails LastModified Time Do you have difficulty concentrating, remembering or making decisions? No Information no t available 11/25/2022 Family History Relationship Description Onset Age of this Age Resolved Age Notes LastModified by Organization Details LastModified Time Maternal Uncle Diabetes mellitus 3 uncles had diabet ies Not available 11/25/2022 10:51:14 Medical History Condition Response RADIATION / CHEMOTHERAPY Y HIGH CHOLESTEROL / HYPERLIPIDEMIA Y SURGERY Y DIABETES, TYPE Y HEART DISEASE/HEART PROBLEMS Y KIDNEY DISEASE Y HYPERTENSION Y CANCER: SPECIFY Y BLOOD TRANSFUSION ANEMIA/BLOOD DISORDER Y Past Encounters Encounter ID Performer Location Encounter Start Date Encounter Closed Date Diagnosis/Indication Diagnosis SNOMED-CT Code Diagnosis ICD10 Code Diagnosis Note [id number] Montse Navarro MD [facility] [address] [place] [address] 11/25/2022 10:38:03 11/25/2022 11:47:40 Uncontrolled type 2 diabetes mellitus 841575463 E11.65 A1C of 6.3%- Will transition off lantus to tresiba due to long acting duration of effect and decreased frequency of hypoglycem ia associated with it. Start at 10 units once daily at bedtime and patient advised to titrate up by 2 units every 4 days until fasting glucose is running 90-120 mg/dL consistent ly. Will stop glimepirid e due to high risk of hypoglycem ia due to CKD stage 3. Will transition to fiasp insulin for rapid postprandi al control-he was advised to follow a 1: 20 carb ratio for his meals if he is eating a starchy carb diet in addition to correction of 2U:50>150 mg/dl on premeal FS prior to meals. She may be able to avoid humalog depending on residual insulin function if eating more nonstarchy carbohydra elijah such as vegetables and low glycemic index fruits. Will reach out to dexcom to request CGM therapy as patient compliant and wishing to start on therapy. He would benefit from minute to minute knowledge of control in order to moderate and titrate insulin to goal range. Continue statin therapy. Spent up to 45 minutes preparing to see the patient (eg, review of tests), obtaining and/or reviewing separately obtained history, performing a medically appropriat e examinatio n and evaluation , counseling and educating the patient, ordering medication s, tests, along with documentin g clinical informatio n in the electronic health record, independen tly interpreti ng results and communicat ing results to the patient. RTC in 2-3 months. Patient was provided a handwritte n lab order which contains our fax number. If he chooses to go outside of the [facility] system to obtain labwork he was advised to provide our fax number and my informatio n to the lab he will be obtaining labwork from in order to have his labs properly forwarded over for me to review so there is no loss of follow up due to use of outside network. He was also advised to contact our clinic informing us that he has completed his labwork so we are aware we will need to reach out to the appropriat e laboratory to request his results be forwarded to us so I might have the ability to review and make further medical decision making in his case. He voiced understand ing. Thank you for this consultati on. [id number] Montse Navarro MD [facility] [place] [place] [facility] [address] [place] [address] 12/08/2022 10:07:08 12/08/2022 11:11:16 Uncontrolled type 2 diabetes mellitus [id number] E11.65 Patient tolerated placement of dexcom sensor without pain or site reaction; patient is aware to change sensor every 10 days. [id number] Montse Navarro MD [facility] [place] [place] [facility] [address] [place] [address] 01/09/2023 12:17:38 01/09/2023 13:54:08 Well controlled type 2 diabetes mellitus 092065545 E11.9 A1C of 6.5% in range- continue on tresiba 8 units once daily at bedtime and patient advised to titrate up by 2 units every 4 days until fasting glucose is running 90-120 mg/dL consistent ly. He is no longer on glimepirid e and significan t hypoglycem i resolved. Continue on fiasp insulin for rapid postprandi al control-he was advised to follow a 1: 20 carb ratio for his meals if he is eating a starchy carb diet in addition to correction of 1U:50>150 mg/dl on premeal FS prior to meals. refill dexcom sensor and transmitte r as he is compliant with use and a1c in goal range due to use. Spent up to 25 minutes preparing to see the patient (eg, review of tests), obtaining and/or reviewing separately obtained history, performing a medically appropriat e examinatio n and evaluation , counseling and educating the patient, ordering medication s, tests, along with documentin g clinical informatio n in the electronic health record, independen tly interpreti ng results and communicat ing results to the patient. Patient can be followed by PCP - she/he is aware of my resignatio n and last day of March 17. If needed his/her PCP can refer patient to another endocrinol ogist in the area. All questions /concerns answered and refills necessary at visit today. Health Concerns Section Related Observation LastModified by Organization Detai ls LastModified Time None Recorded Concern Status LastModified by Organization Details LastModified Time None Recorded Advance Directives Directive None Recorded Payers Encounter Date Sequence Insurance Name Policy Number Policy Menezes Covered Member ID Menezes Member ID Guarantor Name 11/25/2022 2 [employer] - LOCAL 520 Navdeep Ganzer [id number] Navdeep Ganzer 11/25/2022 1 [place] Navdeep M Ganzer [id number] Navdeep Ganzer 12/08/2022 2 [employer] - LOCAL 520 Navdeep Ganzer [id number] Navdeep Ganzer 12/08/2022 1 [place] Navdeep M Ganzer [id number] Navdeep Ganzer 01/09/2023 2 [employer] - LOCAL 520 Navdeep Ganzer [id number] Navdeep Ganzer 01/09/2023 1 [place] Navdeep M Ganzer [id number] Navdeep Ganzer Notes Date Note Type Note Provider Name and Address Organization Details Recorded Time 11/25/2022 text/html 77 yo male comes in as referral by courtesy of Dr. 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 He is now taking insulin due to his renal disease. He does test sugars three times daily before mealsAM fasting over 200 mg/dLpremeals over 150 mg/dL. He is only taking lantus 10-12 units at bedtime. labs from 07/28:Cr 2.65 mg/dlGFR 24 [id number] 6.3%H/H low Montse Navarro MD [address], [place], [address], [facility] 11/25/2022 22:30:36 12/08/2022 text/html 77 yo male comes in for dexcom sensor placement in management of type 2 DM. Montse Navarro MD [address], [place], [address], [facility] 12/23/2022 21:45:41 01/09/2023 text/html 77 yo male comes in for follow up in management of well controlled type 2 DM (A1C of 6.5%) with CKD and dyslipidemia. last seen /initial visit in November at that time we transitioned off lantus to tresiba 10 units once daily at bedtime and patient advised to titrate up by 2 units every 4 days until fasting glucose is running 90-120 mg/dL consistently. We stopped glimepiride due to high risk of hypoglycemia due to CKD stage 3. We did transition to fiasp insulin for rapid postprandial control-he was advised to follow a 1: 20 carb ratio for his meals if he is eating a starchy carb diet in addition to correction of 2U:50>150 mg/dl on premeal FS prior to meals. we provided dexcom. Had training on 12/08/22 He is off lantus to tresiba 8 units at bedtime along with fiasp 4-6 units before meals. sugars ranging over 140 mg/dL fastingover 150 mg/dL up to 203 mg/dL on occasion drops down to 93 mg/dl around midnight if taking too much fiasp with meals. using his dexcom regularly labs from 12/28/22:TSH of 3.701 uIU/mlA1C of 6.5%glucose 162 mg/dLCr 3.99 mg/dL with GFR of 15 ml/min Montse Navarro MD [address], [facility] [address], [place], [address], [place] [facility] [place] [facility] 01/09/2023 13:46:23
--- OUTSIDE RECORDS SUMMARY | 2024-09-05 14:41 | XMS_ITS | Continuity of Care Document ---
Author Organization [facility] Address [address] [place] [address] [address] [place] [address] Phone Care Team Providers Care Area Field Person Name Role Phone Bianca Moran Unavailable Advance Directives Directive Yes / No Effective Date File Name No Information Encounters Encounter Description Practice Location Reason(s) For Visit Diagnoses Date Provider Providers Copied on Encounter [facility], [address], [place], [place], [id number], [place] tel:[phone] [facility] No Information Jul-0 [address]. [address] , [address], [place], [address], [place]. tel:[phone] Family History Family Member Type Diagnosis Age At Onset No Information Payers Payer name Insurance type Covered republican ID Authoriza tion(s) [employer] CI [id number] Social History Type Description Quantity Date Captured Comments Sex Male Smoking Status No Information Chief Complaint And Reason For Visit No Information Reason For Referral Reason For Referral No Information History Of Present Illness Encounter Date Complaint History Of Prese nt Illness No Information Functional Status Date Functional Assessmen t No Information Instructions Date Instruction Additional Infor mation No Information Assessments Type Assessment Date No Information Patient Care Teams Name Effective Dates (start - stop) Status Members No Information
--- OUTSIDE RECORDS SUMMARY | 2024-09-05 14:41 | XMS_ITS ---
Author Organization [facility] al Address [address] [place] [address] Care Team Providers Care Psychology Tech Name Role Phone Marcella Taylor MD Unavailable Anselmo Sampson MD Primary Care Provider [phone] Dialysis Access Sites Type Status Location Placement Date Removal Da te Hemodialysis Cath Double 07/12/24 Tunneled catheter Right Internal Jugular Active Right Neck (side) - Anterior 07/12/2024 Procedures Procedure Name Priority Date/Time Associated Diagnosis [...] GLUCOSE DEVICE Routine 07/14/2024 1 1:06 AM HELPDESK ADMINISTRATOR POCT GLUCOSE DEVICE Routine 07/14/2024 7 :08 AM HELPDESK ADMINISTRATOR EGFR Routine 07/14/2024 2:11 AM HELPDESK ADMINISTRATOR DIFFERENTIAL AUTO Routine 07/14/2024 2:1 1 AM HELPDESK ADMINISTRATOR CBC WITH AUTO DIFFERENTIAL Routine 07/14/2024 2:11 AM HELPDESK ADMINISTRATOR COMPREHENSIVE METABOLIC PANEL Routine 07/14/2024 2:11 AM HELPDESK ADMINISTRATOR POCT GLUCOSE DEVICE Routine 07/13/2024 9 :08 PM HELPDESK ADMINISTRATOR POCT GLUCOSE DEVICE Routine 07/13/2024 5 :34 PM HELPDESK ADMINISTRATOR POCT GLUCOSE DEVICE Routine 07/13/2024 1 1:53 AM HELPDESK ADMINISTRATOR POCT GLUCOSE DEVICE Routine 07/13/2024 7 :10 AM HELPDESK ADMINISTRATOR EGFR Routine 07/13/2024 1:56 AM HELPDESK ADMINISTRATOR DIFFERENTIAL AUTO Routine 07/13/2024 1:5 6 AM HELPDESK ADMINISTRATOR CBC WITH AUTO DIFFERENTIAL Routine 07/13/2024 1:56 AM HELPDESK ADMINISTRATOR COMPREHENSIVE METABOLIC PANEL Routine 07/13/2024 1:56 AM HELPDESK ADMINISTRATOR HEMODIALYSIS Routine 07/12/2024 9:17 PM HELPDESK ADMINISTRATOR POCT GLUCOSE DEVICE Routine 07/12/2024 7 :26 PM HELPDESK ADMINISTRATOR POCT GLUCOSE DEVICE Routine 07/12/2024 5 :11 PM HELPDESK ADMINISTRATOR HEPATITIS B SURFACE ANTIGEN STAT 07/12/2024 4:33 PM HELPDESK ADMINISTRATOR POCT GLUCOSE DEVICE Routine 07/12/2024 1 2:23 PM HELPDESK ADMINISTRATOR TUNNELED LINE PLACEMENT > 5 YEARS IP Routine 07/12/2024 9:17 AM HELPDESK ADMINISTRATOR POCT GLUCOSE DEVICE Routine 07/12/2024 7 :15 AM HELPDESK ADMINISTRATOR POCT GLUCOSE DEVICE Routine 07/12/2024 4 :37 AM HELPDESK ADMINISTRATOR HEMODIALYSIS Routine 07/11/2024 9:26 PM HELPDESK ADMINISTRATOR HEMOGLOBIN A1C Timed 07/11/2024 9:14 PM HELPDESK ADMINISTRATOR IRON PROFILE W/ IBC Timed 07/11/2024 9 :14 PM HELPDESK ADMINISTRATOR EGFR Timed 07/11/2024 9:14 PM HELPDESK ADMINISTRATOR FERRITIN Timed 07/11/2024 9:14 PM HELPDESK ADMINISTRATOR DIFFERENTIAL AUTO Timed 07/11/2024 9:1 4 PM HELPDESK ADMINISTRATOR TYPE AND SCREEN STAT 07/11/2024 9:14 PM HELPDESK ADMINISTRATOR PHOSPHORUS Timed 07/11/2024 9:14 PM HELPDESK ADMINISTRATOR MAGNESIUM Timed 07/11/2024 9:14 PM HELPDESK ADMINISTRATOR COMPREHENSIVE METABOLIC PANEL Timed 07/11/2024 9:14 PM HELPDESK ADMINISTRATOR CBC WITH AUTO DIFFERENTIAL Timed 07/11/2024 9:14 PM HELPDESK ADMINISTRATOR POCT GLUCOSE DEVICE Routine 07/11/2024 7 :32 PM HELPDESK ADMINISTRATOR SCAN - LABS 07/11/2024 INFLUENZA A/B, RSV, AND COVID-19 PCR Routine 07/09/2024 11:52 AM HELPDESK ADMINISTRATOR Acute viral syndrome POC INFLUENZA A/B, COVID-19 ANTIGEN Routine 07/09/2024 11:34 AM HELPDESK ADMINISTRATOR Acute viral syndrome EGFR STAT 07/03/2024 12:19 PM HELPDESK ADMINISTRATOR GIST (gastrointestinal stroma tumor), malignant, 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) DIFFERENTIAL AUTO STAT 07/03/2024 12: 19 PM HELPDESK ADMINISTRATOR GIST (gastrointestinal stroma tumor), malignant, 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) CBC WITH AUTO DIFFERENTIAL STAT 07/03/2024 12:19 PM HELPDESK ADMINISTRATOR GIST (gastrointestinal stroma tumor), malignant, 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) COMPREHENSIVE METABOLIC PANEL STAT 07/03/2024 12:19 PM HELPDESK ADMINISTRATOR GIST (gastrointestinal stroma tumor), malignant, 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) LACTATE DEHYDROGENASE STAT 07/03/2024 12:19 PM HELPDESK ADMINISTRATOR GIST (gastrointestinal stroma tumor), malignant, 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) PET/CT FDG SKULL TO THIGH Schedule Routine, Read Routine (OP Routine) 06/27/2024 9:08 AM HELPDESK ADMINISTRATOR GIST (gastrointestinal stroma tumor), malignant, 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..] directed for monitoring of diabetes 1 kit 024 Active Additional Information Patient taking differently: 1 [...] sugar 3 times daily 200 each 3 024 Active Additional Information Patient taking differently: 1 each other As needed, Only used as backup to Dexcom 7, Check blood sugar 4-5 times daily- only uses as backup to Dexcom 7, Indications: type 2 diabetes mellitus, Informant: Self, Reported on 09/02/2024 TRESIBA 100 unit/mL (3 mL) pen for injectionIndications :Type 2 diabetes mellitus with hypoglycemia without coma, with long-term current use of insulin ([facility]) Inject 0.06 mL (6 Units total) under [...] every 2 (two) weeks 8 capsule 3 024 Active Additional Information Patient taking differently:50,000 Units [...] total) by mouth daily 30 capsule 3 Active Additional Information Patient taking differently:0.4 mg [...] (40 mg total) by mouth every morning Active docusate sodium (COLACE) 100 mg capsuleIndications:c onstipation Take 1 capsule (100 mg total) by mouth 2 (two) times a day 025 Active blood-glucose sensor ([employer]naPais[employer] G7 Sensor) deviceIndications:ty pe 2 diabetes mellitus [...] 07/11/2024 Assessment & Plan (07/14/2024 9:38 AM HELPDESK ADMINISTRATOR): Patient has had progression of CKD to now ESRD needing dialysis initiation given c/f uremia symptoms. Directly admitted per renal. Underwent tunneled dialysis catheter by IR on 07/12 and received HD on 07/12 and 07/13 -Hemodialysis as per Nephrology -Continue home bicarb URI (upper respiratory infection) 07/11/2024 Assessment & Plan (07/12/2024 12:59 PM HELPDESK ADMINISTRATOR): Suspected viral. COVID/flu/RSV neg 07/09. CXR neg 07/10. Was prescribed azithromycin on 07/09 which he took for 3 days. Will not continued further -Supportive care Hypomagnesemia 01/02/2024 CKD (chronic kidney disease) stage 4, GFR 15-29 ml/min 04/16/2023 Assessment & Plan (07/25/2023 10:06 AM HELPDESK ADMINISTRATOR): Chronic problem. Managed by Dr Flores. Has f/u appt at end of the month. 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 Payton CAD (coronary artery disease) 02/24/2023 Assessment & Plan (02/24/2023 3:38 PM CDT): S/p prior 5v CABG in 2012 -Cont statin and coreg -Intolerant of PATI-I/ARB due to worsening renal function -ASA held due to procedure -F/u with Cardiology outpatient Hyperlipidemia associated with type 2 diabetes m laila 02/24/2023 Assessment & Plan (07/11/2024 9:32 PM HELPDESK ADMINISTRATOR): -Continue home welchol -Atorvastatin for home pitavastatin (non-formulary) Assessment & Plan (05/13/2024 9:10 AM HELPDESK ADMINISTRATOR): Continue statin therapy Assessment & Plan (11/16/2023 11:18 AM CDT): Chronic problem. Currently taking Pitavatatin 4mg daily. Last lipid panel: 02/24/23 LDL=76, IX=922. Assessment & Plan (07/25/2023 10:22 AM HELPDESK ADMINISTRATOR): Chronic problem. Currently taking Pitavatatin 4mg daily. Last lipid panel: 02/24/23 LDL=76, FB=333. Assessment & Plan (04/16/2023 8:46 PM HELPDESK ADMINISTRATOR): On Pitavastatin therapy Tolerating well Assessment & Plan (02/24/2023 3:39 PM CDT): Cont statin and colesevelam Type 2 diabetes mellitus wit h stage 4 chronic kidney disease, with long-term current use of insulin 02/24/2023 Assessment & Plan (07/11/2024 9:31 PM HELPDESK ADMINISTRATOR): F/b endo. Home regimen: tresiba 5U QHS, aspart 6-8U TID with meals Pt/ report issues with hypoglycemia lately at home. -Will start with SSI for now; titrate/add scheduled insulin pending glucose trends Assessment & Plan (05/13/2024 9:10 AM HELPDESK ADMINISTRATOR): Chronic, uncontrolled, worsening Hemoglobin A1c 6.8 A1c [...] soon Daily foot care Advise to call [employer] and get the dexcom G 6 sensor to switch to G7 Check labs today Follow-up in 6 months Assessment & Plan (11/16/2023 11:17 AM CDT): Chronic problem. A1c stable at 6.1% but having overnight lows & occasionally lows after LN. Call your supply [employer] to switch from Dexcom G6 to Dexcom G7. Lower tresiba to 6 units nightly. If you notice that your over night readings are too high--start to increase by 1 unit weekly until they return to normal. If you're eating a dynamic balancer lunch--drop the Fiasp to 6 units. Current medications: Tresiba 6 units at bedtime Fiasp 4 units with breakfast & dinner, 8 units with lunch (6 units if dynamic balancer lunch) If blood sugar is between 151-200, add 1 units. If blood sugar is between 201-250, add 2 units. If blood sugar is between 251-300, add 3 units. If blood sugar is between 301-350, add 4 units. UTD on DM eye exam (06/15/23 at [facility]). UTD on labs. Discussed with José Luis [...] infection. Assessment & Plan (07/25/2023 10:02 AM HELPDESK ADMINISTRATOR): Chronic problem. A1c stable at 6.1% but having overnight lows & occasionally lows after LN. Call your supply company to switch from Dexcom G6 to Dexcom G7. Lower tresiba to 6 units nightly. If you notice that your over night readings are too high--start to increase by 1 unit weekly until they return to normal. If you're eating a dynamic balancer lunch--drop the Fiasp to 6 units. Current medications: Tresiba 6 units at bedtime Fiasp 4 units with breakfast & dinner, 8 units with lunch (6 units if dynamic balancer lunch) If blood sugar is between 151-200, add 1 units. If blood sugar is between 201-250, add 2 units. If blood sugar is between 251-300, add 3 units. If blood sugar is between 301-350, add 4 units. DM eye exam 06/2023 at [facility]. Letter sent to get copy of [...] infection. 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 Controlled on current Carvedilol 25mg bid, amlodipine 10mg daily, lasix 20mg daily. not taking hydralazine currently Assessment & Plan (07/25/2023 10:05 AM HELPDESK ADMINISTRATOR): Chronic problem. Controlled on current Carvedilol 25mg bid, amlodipine 10mg daily, lasix 20mg daily. 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 73 m2 Comment: [...] MD LAB BLOOD ORDERABLES Final Resul t [facility] [place] [address] * (ABNORMAL) Differential, auto (08/14/2024 11:18 AM CDT) Neutrophil abs 7.7(H) 1.5 - 6.5 K/cumm Comment:Testing performed by : [facility], [address] [place] [id number] Imm gran abs 0.1 0.0 - 0.1 K/cumm [facility] Lymphocyte abs 2.0 0.8 - 3.3 K/cumm [facility] Monocyte abs 0.8 0.2 - 0.8 K/cumm [facility] Eosinophil abs 0.4 0.0 - 0.5 K/cumm [facility] Basophil abs 0.1 0.0 - 0.1 K/cumm [facility] Neutrophil pct 69.7 % [facility] Comment: Interpretive Data Percent cell count reference ranges are not reported, since discordance with absolute values may lead to misinterpretation of CBC data. Current Interpretive Data was last revised on 2017. Imm gran pct 0.5 % [facility] Comment: Interpretive Data Percent cell count reference ranges are not reported, since discordance with absolute values may lead to misinterpretation of CBC data. Current Interpretive Data was last revised on 2017. Lymphocyte pct 17.9 % [facility] Comment: Interpretive Data Percent cell count reference ranges are not reported, since discordance with absolute values may lead to misinterpretation of CBC data. Current Interpretive Data was last revised on 2017. Monocyte pct 7.6 % [facility] Comment: Interpretive Data Percent cell count reference ranges are not reported, since discordance with absolute values may lead to misinterpretation of CBC data. Current Interpretive Data was last revised on 2017. Eosinophil pct 3.6 % [facility] Comment: Interpretive Data Percent cell count reference ranges are not reported, since discordance with absolute values may lead to misinterpretation of CBC data. Current Interpretive Data was last revised on 2017. Basophil pct 0.7 % [facility] Comment: Interpretive Data Percent cell count reference ranges are not reported, since discordance with absolute values may lead to misinterpretation of CBC data. Current Interpretive Data was last revised on 2017. Blood 08/14/2024 11:1 8 AM CDT 08/14/2024 11:18 AM CDT us Marcella Taylor MD LAB BLOOD ORDERABLES Final Resul t [facility] [place] [address] * (ABNORMAL) CBC with auto differential (08/14/2024 11:18 AM CDT) WBC 11.0(H) 3.8 - 9.9 K/cumm Comment:Testing performed by : [address] [address] Hgb 10.3(L) 13.0 - 17.5 g/dL [facility] Comment:Testing performed by : [address] [address] Hct 32.1(L) 38.9 - 50.3 % [facility] Comment:Testing performed by : [address] [address] Plt 187 150 - 400 K/cumm [facility] Comment:Testing performed by : [address] [address] MPV 9.6 9.1 - 12.3 fL [facility] RBC 3.88(L) 4.30 - 5.80 M/cumm [facility] MCV 82.7 81.3 - 96.4 fL [facility] MCH 26.5(L) 27.1 - 33.3 pg [facility] MCHC 32.1(L) 32.3 - 35.7 g/dL [facility] RDW CV 17.1(H) 11.1 - 14.9 % [facility] RDW SD 51.6(H) 35.7 - 48.1 fL [facility] NRBC abs 0.00 0.00 - 0.01 K/cumm [facility] Blood 08/14/2024 11:1 8 AM CDT 08/14/2024 11:18 AM CDT Marcella Taylor MD LAB BLOOD ORDERABLES Final Resul t Performing Organization Address City/[facility] Co de Phone Number [facility] Department [place] [address] * (ABNORMAL) Lactate dehydrogenase (LD) (08/14/2024 11:18 AM CDT) Pathologist [facility] Lactate dehydrogenase (LDH) 343(H) 100 - 250 Units/L Comment:Testing performed by : [address] [address] Blood 08/14/2024 11:1 8 AM CDT 08/14/2024 11:18 AM CDT us Marcella Taylor MD LAB BLOOD ORDERABLES Final Resul t Performing Organization Address City/[facility]/ZIP Co de Phone Number [facility] [place] [address] * (ABNORMAL) Comprehensive metabolic panel (08/14/2024 11:18 AM CDT) Pathologist [facility] Sodium 142 135 - 145 mmol/L Comment:Testing performed by : [address] [place] [address] Potassium, pl 4.7 3.3 - 4.9 mmol/L [facility] Chloride 107 97 - 110 mmol/L [facility] CO2 27 22 - 32 mmol/L [facility] Anion gap 8 2 - 15 mmol/L [facility] BUN 41(H) 6 - 25 mg/dL [facility] Creatinine 5.63(H) 0.80 - 1.30 mg/dL [facility] Glucose 170 70 - 199 mg/dL [facility] Comment: Interpretive Data Fasting glucose >/= [...] 2022. Calcium 8.0(L) 8.5 - 10.3 mg/dL [facility] Bilirubin, total 0.5 0.1 - 1.2 mg/dL [facility] Protein, pl 6.5 6.5 - 8.5 g/dL [facility] Albumin 3.6 3.5 - 5.0 g/dL [facility] Alk phos 83 40 - 130 Units/L [facility] ALT 11 7 - 55 Units/L [facility] AST 22 10 - 50 Units/L [facility] Blood 08/14/2024 11:1 8 AM CDT 08/14/2024 11:18 AM CDT us Marcella Taylor MD LAB BLOOD ORDERABLES Final Resul t [facility] [place] [address] * US Vein Mapping Fistula Access, Bilateral (08/12/2024 9:16 AM CDT) Anatomical Region Laterality Modality Vascular Bilateral Ultrasound 08/12/2024 7:00 AM CDT Narrative 08/12/2024 12:47 PM CDT [facility] - Department of Vascular Surgery, Vascular Laboratory [address] [place] [id number] Upper Extremity Vein Mapping Report Patient Name: JOSÉ LUIS GAMBLE : 1945 (78y 10m) Study Date: 08/12/2024 7:00:58 AM Gender: M Shot Bagger: GONZALO Location: [facility] Provider: GODFREY VILLARREAL Quality: Adequate Order [...] Value Units Left Value Units FINDINGS: Performing Shot Bagger: Jayda Dunn RVT. Bilateral: Venous Doppler signals [...] above. Electronically Signed By: Josias Cox MD [facility] [phone] 08/12/2024 12:46:53 PM CDT Procedure Note Josias Cox MD - 08/12/2024 [facility] - Department of Vascular Surgery,Vascular Laboratory [address] [place] [address] Upper Extremity Vein Mapping Report Patient Name: JOSÉ LUIS GAMBLE : 1945 (78y 10m) Study Date: 08/12/2024 7:00:58 AM Gender: M Shot Bagger: GONZALO Location: [facility] Provider: GODFREY VILLARREAL Quality: Adequate Order [...] Value Units Left Value Units FINDINGS: Performing Shot Bagger: Jayda Dunn RVT. Bilateral: Venous Doppler signals [...] above. Electronically Signed By: Josias Cox MD [facility] [phone] 08/12/2024 12:46:53 PM CDT Godfrey Villarreal MD IMG US PROCEDURES Final R esult * SCAN - LABS (08/08/2024) us Provider Scanning Final Result * (ABNORMAL) POCT glucose (07/14/2024 11:06 AM HELPDESK ADMINISTRATOR) Glucose, POC 215(H) 70 - 199 mg/dL Blood 07/14/2024 11:0 6 AM HELPDESK ADMINISTRATOR 07/14/2024 11:06 AM HELPDESK ADMINISTRATOR Rex Reid MD LAB POCT ORDERABLES - DEVICE Fin al Result Performing Organization Address City/[facility] Co de Phone Number [facility] [place] [address] * POCT glucose (07/14/2024 7:08 AM HELPDESK ADMINISTRATOR) Glucose, POC 151 70 - 199 mg/dL Blood 07/14/2024 7:08 AM HELPDESK ADMINISTRATOR 07/14/2024 7:08 AM HELPDESK ADMINISTRATOR Rex Reid MD LAB POCT ORDERABLES - DEVICE Fin al Result Performing Organization Address [facility] Phone Number [facility] [place] [address] * (ABNORMAL) eGFR (07/14/2024 2:11 AM HELPDESK ADMINISTRATOR) eGFR 11(L) >=60 mL/min/1. 73 m2 Comment: [...] last reviewed 2021. Blood 07/14/2024 2:11 AM HELPDESK ADMINISTRATOR 07/14/2024 4:35 AM HELPDESK ADMINISTRATOR us Coco Batres MD LAB BLOOD ORDERABLES Final Re sult [facility] [place] [address] * Differential, auto (07/14/2024 2:11 AM HELPDESK ADMINISTRATOR) Neutrophil abs 5.3 1.5 - 6.5 K/cumm Imm gran abs 0.1 0.0 - 0.1 K/cumm [facility] Lymphocyte abs 2.0 0.8 - 3.3 K/cumm [facility] Monocyte abs 0.8 0.2 - 0.8 K/cumm [facility] Eosinophil abs 0.4 0.0 - 0.5 K/cumm [facility] Basophil abs 0.1 0.0 - 0.1 K/cumm [facility] Neutrophil pct 61.0 % [facility] Comment: Interpretive Data Percent cell count reference ranges are not reported, since discordance with absolute values may lead to misinterpretation of CBC data. Current Interpretive Data was last revised on 2017. Imm gran pct 0.9 % [facility] Comment: Interpretive Data Percent cell count reference ranges are not reported, since discordance with absolute values may lead to misinterpretation of CBC data. Current Interpretive Data was last revised on 2017. Lymphocyte pct 22.8 % [facility] Comment: Interpretive Data Percent cell count reference ranges are not reported, since discordance with absolute values may lead to misinterpretation of CBC data. Current Interpretive Data was last revised on 2017. Monocyte pct 9.6 % [facility] Comment: Interpretive Data Percent cell count reference ranges are not reported, since discordance with absolute values may lead to misinterpretation of CBC data. Current Interpretive Data was last revised on 2017. Eosinophil pct 5.0 % [facility] Comment: Interpretive Data Percent cell count reference ranges are not reported, since discordance with absolute values may lead to misinterpretation of CBC data. Current Interpretive Data was last revised on 2017. Basophil pct 0.7 % [facility] Comment: Interpretive Data Percent cell count reference ranges are not reported, since discordance with absolute values may lead to misinterpretation of CBC data. Current Interpretive Data was last revised on 2017. Blood 07/14/2024 2:11 AM HELPDESK ADMINISTRATOR 07/14/2024 4:35 AM HELPDESK ADMINISTRATOR Coco Batres MD LAB BLOOD ORDERABLES Final Re sult Performing Organization Address [facility] Co de Phone Number [facility] [place] [address] * (ABNORMAL) CBC with auto differential (07/14/2024 2:11 AM HELPDESK ADMINISTRATOR) WBC 8.7 3.8 - 9.9 K/cumm Hgb 9.3(L) 13.0 - 17.5 g/dL [facility] Hct 30.1(L) 38.9 - 50.3 % [facility] Plt 184 150 - 400 K/cumm [facility] MPV 10.6 9.1 - 12.3 fL [facility] RBC 3.66(L) 4.30 - 5.80 M/cumm [facility] MCV 82.2 81.3 - 96.4 fL [facility] MCH 25.4(L) 27.1 - 33.3 pg [facility] MCHC 30.9(L) 32.3 - 35.7 g/dL [facility] RDW CV 16.7(H) 11.1 - 14.9 % [facility] RDW SD 49.9(H) 35.7 - 48.1 fL [facility] NRBC abs 0.00 0.00 - 0.01 K/cumm [facility] Blood 07/14/2024 2:11 AM HELPDESK ADMINISTRATOR 07/14/2024 4:35 AM HELPDESK ADMINISTRATOR Coco Batres MD LAB BLOOD ORDERABLES Final Re sult Performing Organization Address [facility] Co de Phone Number [facility] [place] [address] * (ABNORMAL) Comprehensive metabolic panel (07/14/2024 2:11 AM HELPDESK ADMINISTRATOR) Sodium 139 135 - 145 mmol/L Potassium, pl 3.9 3.3 - 4.9 mmol/L [facility] Chloride 104 97 - 110 mmol/L [facility] CO2 24 22 - 32 mmol/L [facility] Anion gap 11 2 - 15 mmol/L [facility] BUN 36(H) 6 - 25 mg/dL [facility] Creatinine 4.95(H) 0.80 - 1.30 mg/dL [facility] Glucose 150 70 - 199 mg/dL [facility] Comment: Interpretive Data Fasting glucose >/= [...] 2022. Calcium 7.3(L) 8.5 - 10.3 mg/dL [facility] Bilirubin, total 0.7 0.1 - 1.2 mg/dL [facility] Protein, pl 5.6(L) 6.5 - 8.5 g/dL [facility] Albumin 2.9(L) 3.5 - 5.0 g/dL [facility] Alk phos 76 40 - 130 Units/L [facility] ALT 9 7 - 55 Units/L [facility] AST 24 10 - 50 Units/L [facility] Blood 07/14/2024 2:11 AM HELPDESK ADMINISTRATOR 07/14/2024 4:35 AM HELPDESK ADMINISTRATOR us Coco Batres MD LAB BLOOD ORDERABLES Final [place] [address] * (ABNORMAL) POCT glucose (07/13/2024 9:08 PM HELPDESK ADMINISTRATOR) Glucose, POC 256(H) 70 - 199 mg/dL Blood 07/13/2024 9:08 PM HELPDESK ADMINISTRATOR 07/13/2024 9:08 PM HELPDESK ADMINISTRATOR us Rex Reid MD LAB POCT ORDERABLES - DEVICE Fin al Result Performing Organization Address [facility]/[place] [address] * POCT glucose (07/13/2024 5:34 PM HELPDESK ADMINISTRATOR) Glucose, POC 119 70 - 199 mg/dL Blood 07/13/2024 5:34 PM HELPDESK ADMINISTRATOR 07/13/2024 5:34 PM HELPDESK ADMINISTRATOR us Rex Reid MD LAB POCT ORDERABLES - DEVICE Fin al Result Performing Organization Address [facility]/[place] [address] * (ABNORMAL) POCT glucose (07/13/2024 11:53 AM HELPDESK ADMINISTRATOR) Glucose, POC 242(H) 70 - 199 mg/dL Blood 07/13/2024 11:5 3 AM HELPDESK ADMINISTRATOR 07/13/2024 11:53 AM HELPDESK ADMINISTRATOR us Rex Reid MD LAB POCT ORDERABLES - DEVICE Fin al Result Performing Organization Address City/[facility] [place] [address] * POCT glucose (07/13/2024 7:10 AM HELPDESK ADMINISTRATOR) Glucose, POC 163 70 - 199 mg/dL Blood 07/13/2024 7:10 AM HELPDESK ADMINISTRATOR 07/13/2024 7:10 AM HELPDESK ADMINISTRATOR us Rex Reid MD LAB POCT ORDERABLES - DEVICE Fin al Result Performing Organization Address [facility] Co de Phone Number [facility] [place] [address] * (ABNORMAL) eGFR (07/13/2024 1:56 AM HELPDESK ADMINISTRATOR) eGFR 8(L) >=60 mL/min/1. 73 m2 Comment: [...] last reviewed 2021. Blood 07/13/2024 1:56 AM HELPDESK ADMINISTRATOR 07/13/2024 2:12 AM HELPDESK ADMINISTRATOR us Coco Batres MD LAB BLOOD ORDERABLES Final Re sult Performing Organization Address [facility]/ZIP Co de Phone Number [facility] [place] [address] * Differential, auto (07/13/2024 1:56 AM HELPDESK ADMINISTRATOR) Neutrophil abs 6.2 1.5 - 6.5 K/cumm Imm gran abs 0.1 0.0 - 0.1 K/cumm [facility] Lymphocyte abs 2.0 0.8 - 3.3 K/cumm [facility] Monocyte abs 0.8 0.2 - 0.8 K/cumm [facility] Eosinophil abs 0.4 0.0 - 0.5 K/cumm [facility] Basophil abs 0.1 0.0 - 0.1 K/cumm [facility] Neutrophil pct 65.9 % [facility] Comment: Interpretive Data Percent cell count reference ranges are not reported, since discordance with absolute values may lead to misinterpretation of CBC data. Current Interpretive Data was last revised on 2017. Imm gran pct 0.5 % [facility] Comment: Interpretive Data Percent cell count reference ranges are not reported, since discordance with absolute values may lead to misinterpretation of CBC data. Current Interpretive Data was last revised on 2017. Lymphocyte pct 20.6 % [facility] Comment: Interpretive Data Percent cell count reference ranges are not reported, since discordance with absolute values may lead to misinterpretation of CBC data. Current Interpretive Data was last revised on 2017. Monocyte pct 8.4 % [facility] Comment: Interpretive Data Percent cell count reference ranges are not reported, since discordance with absolute values may lead to misinterpretation of CBC data. Current Interpretive Data was last revised on 2017. Eosinophil pct 4.0 % [facility] Comment: Interpretive Data Percent cell count reference ranges are not reported, since discordance with absolute values may lead to misinterpretation of CBC data. Current Interpretive Data was last revised on 2017. Basophil pct 0.6 % [facility] Comment: Interpretive Data Percent cell count reference ranges are not reported, since discordance with absolute values may lead to misinterpretation of CBC data. Current Interpretive Data was last revised on 2017. Blood 07/13/2024 1:56 AM HELPDESK ADMINISTRATOR 07/13/2024 2:12 AM HELPDESK ADMINISTRATOR us Coco Batres MD LAB BLOOD ORDERABLES Final Re sult [facility] [place] [address] * (ABNORMAL) CBC with auto differential (07/13/2024 1:56 AM HELPDESK ADMINISTRATOR) [facility] WBC 9.5 3.8 - 9.9 K/cumm Hgb 9.1(L) 13.0 - 17.5 g/dL [facility] Hct 28.6(L) 38.9 - 50.3 % [facility] Plt 197 150 - 400 K/cumm [facility] MPV 9.9 9.1 - 12.3 fL [facility] RBC 3.48(L) 4.30 - 5.80 M/cumm [facility] MCV 82.2 81.3 - 96.4 fL [facility] MCH 26.1(L) 27.1 - 33.3 pg [facility] MCHC 31.8(L) 32.3 - 35.7 g/dL [facility] RDW CV 16.8(H) 11.1 - 14.9 % [facility] RDW SD 49.9(H) 35.7 - 48.1 fL [facility] NRBC abs 0.00 0.00 - 0.01 K/cumm [facility] Blood 07/13/2024 1:56 AM HELPDESK ADMINISTRATOR 07/13/2024 2:12 AM HELPDESK ADMINISTRATOR us Coco Batres MD LAB BLOOD ORDERABLES Final Re sult [facility] [place] [address] * (ABNORMAL) Comprehensive metabolic panel (07/13/2024 1:56 AM HELPDESK ADMINISTRATOR) [facility] Sodium 141 135 - 145 mmol/L Potassium, pl 4.2 3.3 - 4.9 mmol/L [facility] Chloride 105 97 - 110 mmol/L [facility] CO2 25 22 - 32 mmol/L [facility] Anion gap 11 2 - 15 mmol/L [facility] BUN 54(H) 6 - 25 mg/dL [facility] Creatinine 6.35(H) 0.80 - 1.30 mg/dL [facility] Glucose 128 70 - 199 mg/dL [facility] Comment: Interpretive Data Fasting glucose >/= [...] 2022. Calcium 7.2(L) 8.5 - 10.3 mg/dL [facility] Bilirubin, total 0.7 0.1 - 1.2 mg/dL [facility] Protein, pl 5.7(L) 6.5 - 8.5 g/dL [facility] Albumin 3.0(L) 3.5 - 5.0 g/dL [facility] Alk phos 72 40 - 130 Units/L [facility] ALT 11 7 - 55 Units/L [facility] AST 37 10 - 50 Units/L [facility] Blood 07/13/2024 1:56 AM HELPDESK ADMINISTRATOR 07/13/2024 2:12 AM HELPDESK ADMINISTRATOR us Coco Batres MD LAB BLOOD ORDERABLES Final Re sult Performing Organization Address [facility]/ZIP Co de Phone Number [facility] [place] [address] * (ABNORMAL) POCT glucose (07/12/2024 7:26 PM HELPDESK ADMINISTRATOR) [facility] Glucose, POC 203(H) 70 - 199 mg/dL Blood 07/12/2024 7:26 PM HELPDESK ADMINISTRATOR 07/12/2024 7:26 PM HELPDESK ADMINISTRATOR us Rex Reid MD LAB POCT ORDERABLES - DEVICE Fin al Result Performing Organization Address [facility] Co de Phone Number [facility] [place] [address] * POCT glucose (07/12/2024 5:11 PM HELPDESK ADMINISTRATOR) Glucose, POC 163 70 - 199 mg/dL Blood 07/12/2024 5:11 PM HELPDESK ADMINISTRATOR 07/12/2024 5:11 PM HELPDESK ADMINISTRATOR us Rex Reid MD LAB POCT ORDERABLES - DEVICE Fin al Result Performing Organization Address [facility] [place] [address] * Hepatitis B Surface Antigen Blood (07/12/2024 4:33 PM HELPDESK ADMINISTRATOR) [facility] HepBsAg Nonreactive Nonreactive Blood 07/12/2024 4:33 PM HELPDESK ADMINISTRATOR 07/12/2024 5:34 PM HELPDESK ADMINISTRATOR us Kavitha Logan MD LAB MICROBIOLOGY - GENERAL ORDERABLES Final Result Performing Organization Address [facility] [place] [address] * (ABNORMAL) POCT glucose (07/12/2024 12:23 PM HELPDESK ADMINISTRATOR) Glucose, POC 286(H) 70 - 199 mg/dL Blood 07/12/2024 12:2 3 PM HELPDESK ADMINISTRATOR 07/12/2024 12:23 PM HELPDESK ADMINISTRATOR us Rex Reid MD LAB POCT ORDERABLES - DEVICE Fin al Result Performing Organization Address [facility] [place] [address] * IR Tunneled Line Placement > 5 Years (07/12/2024 9:17 AM HELPDESK ADMINISTRATOR) Anatomical Region Laterality Modality Body N/A Radio Fluoroscop y 07/12/2024 9:45 AM HELPDESK ADMINISTRATOR Impressions 07/12/2024 9:45 AM HELPDESK ADMINISTRATOR Successful tunneled 19 cm tip to cuff Duraflow catheter catheter placement via the right internal jugular vein. PLAN: The catheter is ready for immediate use. When treatment is completed, removal can be scheduled by calling [facility] - [phone] [facility] - [phone] Electronically signed by: Shamika Chambers PA-C Narrative 07/12/2024 9:45 AM HELPDESK ADMINISTRATOR EXAMINATION: TUNNELED CENTRAL VENOUS CATHETER PLACEMENT USING [...] was obtained. Prior to beginning the procedure, [place] Protocol was used to confirm the patient's [...] was obtained. Prior to beginning the procedure, [place] Protocol was used to confirm the patient's [...] completed, removal can be scheduled by calling [facility] - [phone] [facility] - [phone] Electronically signed by: Shamika Chambers PA-C us Coco Batres MD IMG IR PROCEDURES Final Resul t * POCT glucose (07/12/2024 7:15 AM HELPDESK ADMINISTRATOR) Glucose, POC 158 70 - 199 mg/dL Blood 07/12/2024 7:15 AM HELPDESK ADMINISTRATOR 07/12/2024 7:15 AM HELPDESK ADMINISTRATOR us Rex Reid MD LAB POCT ORDERABLES - DEVICE Fin al Result Performing Organization Address [facility] Co de Phone Number [facility] [place] [employer] [place] [address] * POCT glucose (07/12/2024 4:37 AM HELPDESK ADMINISTRATOR) Glucose, POC 175 70 - 199 mg/dL Blood 07/12/2024 4:37 AM HELPDESK ADMINISTRATOR 07/12/2024 4:37 AM HELPDESK ADMINISTRATOR us Rex Reid MD LAB POCT ORDERABLES - DEVICE Fin al Result Performing Organization Address [facility] Co de Phone Number [facility] [place] [place] [address] * (ABNORMAL) eGFR (07/11/2024 9:14 PM HELPDESK ADMINISTRATOR) [facility] eGFR 6(L) >=60 mL/min/1. 73 m2 [...] last reviewed 2021. Blood 07/11/2024 9:14 PM HELPDESK ADMINISTRATOR 07/11/2024 9:25 PM HELPDESK ADMINISTRATOR us Coco Batres MD LAB BLOOD ORDERABLES Final Re sult [facility] [place] [address] * Differential, auto (07/11/2024 9:14 PM HELPDESK ADMINISTRATOR) Pathologist [facility] Neutrophil abs 4.3 1.5 - 6.5 K/cumm Imm gran abs 0.0 0.0 - 0.1 K/cumm [facility] Lymphocyte abs 1.4 0.8 - 3.3 K/cumm [facility] Monocyte abs 0.8 0.2 - 0.8 K/cumm [facility] Eosinophil abs 0.3 0.0 - 0.5 K/cumm [facility] Basophil abs 0.1 0.0 - 0.1 K/cumm [facility] Neutrophil pct 62.2 % [facility] Comment: Interpretive Data Percent cell count reference ranges are not reported, since discordance with absolute values may lead to misinterpretation of CBC data. Current Interpretive Data was last revised on 2017. Imm gran pct 0.6 % [facility] Comment: Interpretive Data Percent cell count reference ranges are not reported, since discordance with absolute values may lead to misinterpretation of CBC data. Current Interpretive Data was last revised on 2017. Lymphocyte pct 20.4 % [facility] Comment: Interpretive Data Percent cell count reference ranges are not reported, since discordance with absolute values may lead to misinterpretation of CBC data. Current Interpretive Data was last revised on 2017. Monocyte pct 11.1 % [facility] Comment: Interpretive Data Percent cell count reference ranges are not reported, since discordance with absolute values may lead to misinterpretation of CBC data. Current Interpretive Data was last revised on 2017. Eosinophil pct 5.0 % [facility] Comment: Interpretive Data Percent cell count reference ranges are not reported, since discordance with absolute values may lead to misinterpretation of CBC data. Current Interpretive Data was last revised on 2017. Basophil pct 0.7 % [facility] Comment: Interpretive Data Percent cell count reference ranges are not reported, since discordance with absolute values may lead to misinterpretation of CBC data. Current Interpretive Data was last revised on 2017. Blood 07/11/2024 9:14 PM HELPDESK ADMINISTRATOR 07/11/2024 9:26 PM HELPDESK ADMINISTRATOR us Coco Batres MD LAB BLOOD ORDERABLES Final Re sult [facility] [place] [address] * (ABNORMAL) Iron profile w/ IBC (07/11/2024 9:14 PM HELPDESK ADMINISTRATOR) Iron 28(L) 50 - 150 mcg/dL TIBC 133(L) 250 - 400 mcg/dL [facility] Transferrin saturation 21 20 - 50 % [facility] Blood 07/11/2024 9:14 PM HELPDESK ADMINISTRATOR 07/11/2024 9:25 PM HELPDESK ADMINISTRATOR us Marcella Taylor MD LAB BLOOD ORDERABLES Final Resul t [facility] [place] [address] * (ABNORMAL) CBC with auto differential (07/11/2024 9:14 PM HELPDESK ADMINISTRATOR) Pathologist [facility] WBC 6.9 3.8 - 9.9 K/cumm Hgb 8.6(L) 13.0 - 17.5 g/dL [facility] Hct 28.3(L) 38.9 - 50.3 % [facility] Plt 199 150 - 400 K/cumm [facility] MPV 10.5 9.1 - 12.3 fL [facility] RBC 3.39(L) 4.30 - 5.80 M/cumm [facility] MCV 83.5 81.3 - 96.4 fL [facility] MCH 25.4(L) 27.1 - 33.3 pg [facility] MCHC 30.4(L) 32.3 - 35.7 g/dL [facility] RDW CV 17.1(H) 11.1 - 14.9 % [facility] RDW SD 51.2(H) 35.7 - 48.1 fL [facility] NRBC abs 0.00 0.00 - 0.01 K/cumm [facility] Blood 07/11/2024 9:14 PM HELPDESK ADMINISTRATOR 07/11/2024 9:26 PM HELPDESK ADMINISTRATOR Coco Batres MD LAB BLOOD ORDERABLES Final Re sult Performing Organization Address City/[facility]/ZIP Co de Phone Number [facility] [place] [address] * Type and screen (07/11/2024 9:14 PM HELPDESK ADMINISTRATOR) Pathologist [facility] Aide, indirect Negative ABO Rh O Positive [facility] Blood 07/11/2024 9:14 PM HELPDESK ADMINISTRATOR 07/11/2024 9:51 PM HELPDESK ADMINISTRATOR Narrative [facility] - 07/11/2024 10:40 PM HELPDESK ADMINISTRATOR Has the patient had Daratumumab or Isatuximab in the past 6 months?->Unknown Coco Batres MD LAB BLOOD BANK TEST ORDERABLE S Final Result Performing Organization Address [facility] de Phone Number [facility] [place] [employer] [place] [address] * (ABNORMAL) Phosphorus (07/11/2024 9:14 PM HELPDESK ADMINISTRATOR) Phosphorus, pl 7.0(H) 2.3 - 4.5 mg/dL Blood 07/11/2024 9:14 PM HELPDESK ADMINISTRATOR 07/11/2024 9:25 PM HELPDESK ADMINISTRATOR Coco Batres MD LAB BLOOD ORDERABLES Final Re sult Performing Organization Address [facility] [place] [place] [address] * Magnesium (07/11/2024 9:14 PM HELPDESK ADMINISTRATOR) Magnesium 2.5 1.4 - 2.5 mg/dL Blood 07/11/2024 9:14 PM HELPDESK ADMINISTRATOR 07/11/2024 9:25 PM HELPDESK ADMINISTRATOR Coco Batres MD LAB BLOOD ORDERABLES Final Re sult Performing Organization Address [facility] Phone Number [facility] [place] [place] [address] * (ABNORMAL) Hemoglobin A1c (07/11/2024 9:14 PM HELPDESK ADMINISTRATOR) Hgb A1C 6.3(H) 4.0 - 5.6 % Estimated Average Glucose 134 mg/dL [facility] Comment: The ADA recommends reporting an estimated Average Glucose (eAG) with all Hemoglobin A1c results using the equation derived from a study of 507 normal and diabetic adults. Minority populations were underrepresented and children were not included. (Diabetes Care 2020; 43(S1): S66-S76). The eAG is not equivalent to a fasting glucose. Blood 07/11/2024 9:14 PM HELPDESK ADMINISTRATOR 07/11/2024 9:39 PM HELPDESK ADMINISTRATOR Narrative [facility] - 07/12/2024 8:23 AM HELPDESK ADMINISTRATOR Reflex us Rex Reid MD LAB BLOOD ORDERABLES Final Resul t Performing Organization Address [facility] Co de Phone Number [facility] [place] [address] * Ferritin (07/11/2024 9:14 PM HELPDESK ADMINISTRATOR) Pathologist [facility] Ferritin 77 30 - 400 ng/mL Blood 07/11/2024 9:14 PM HELPDESK ADMINISTRATOR 07/11/2024 9:25 PM HELPDESK ADMINISTRATOR us Marcella Taylor MD LAB BLOOD ORDERABLES Final Resul t Performing Organization Address [facility] de Phone Number [facility] [place] [address] * (ABNORMAL) Comprehensive metabolic panel (07/11/2024 9:14 PM HELPDESK ADMINISTRATOR) [facility] Sodium 137 135 - 145 mmol/L Potassium, pl 4.6 3.3 - 4.9 mmol/L [facility] Chloride 104 97 - 110 mmol/L [facility] CO2 21(L) 22 - 32 mmol/L [facility] Anion gap 12 2 - 15 mmol/L [facility] BUN 72(H) 6 - 25 mg/dL [facility] Creatinine 8.69(H) 0.80 - 1.30 mg/dL [facility] Glucose 214(H) 70 - 199 mg/dL [facility] Comment: Interpretive Data Fasting glucose >/= [...] 2022. Calcium 7.6(L) 8.5 - 10.3 mg/dL [facility] Bilirubin, total 0.7 0.1 - 1.2 mg/dL [facility] Protein, pl 6.0(L) 6.5 - 8.5 g/dL [facility] Albumin 3.1(L) 3.5 - 5.0 g/dL [facility] Alk phos 68 40 - 130 Units/L [facility] ALT 11 7 - 55 Units/L [facility] AST 22 10 - 50 Units/L [facility] Blood 07/11/2024 9:14 PM HELPDESK ADMINISTRATOR 07/11/2024 9:25 PM HELPDESK ADMINISTRATOR Result [facility] Coco Batres MD LAB BLOOD ORDERABLES Final Re sult Performing Organization Address [facility]/ZIP Co de Phone Number [facility] [place] [address] * POCT glucose (07/11/2024 7:32 PM HELPDESK ADMINISTRATOR) [facility] Glucose, POC 180 70 - 199 mg/dL Blood 07/11/2024 7:32 PM HELPDESK ADMINISTRATOR 07/11/2024 7:32 PM HELPDESK ADMINISTRATOR Result [facility] Marcella Taylor MD LAB POCT ORDERABLES - DEVICE Fin al Result Performing Organization Address [facility]/ZIP Co de Phone Number [facility] [place] [address] * SCAN - LABS (07/11/2024) Provider Scanning Edited Result - Final * Influenza A/B, RSV, and COVID-19 PCR Nasopharyngeal (07/09/2024 11:52 AM HELPDESK ADMINISTRATOR) [facility] COVID-19 RNA Negative Negative [facility] Influenza A RNA Negative Negative [facility] Influenza B RNA Negative Negative [facility] RSV RNA Negative Negative [facility] Comment: Interpretive data: Testing performed by [facility]. This test is performed using the [employer] Xpert Xpress CoV-2/Flu/RSV plus assay. This is a multiplex, real-time reverse transcriptase PCR assay intended for the qualitative detection of nucleic acid from SARS-CoV-2, influenza A, influenza B, and respiratory syncytial virus. This assay has been cleared by the [place] Food and Drug administration. The performance characteristics have been verified by the [facility]. Results must be considered in the clinical context, and a negative result does not rule out infection. Interpretive Data last revised 2023 Nasopharyngeal 07/09/2024 11 :52 AM HELPDESK ADMINISTRATOR 07/09/2024 2:52 PM HELPDESK ADMINISTRATOR Narrative [facility] - 07/09/2024 4:04 PM HELPDESK ADMINISTRATOR Is the Patient experiencing symptoms consistent with COVID?->Yes us Manjula Gonzalez NP LAB MICROBIOLOGY - GENERAL ORD ERABLES Final Result [facility] [address] [place] [address] * POC Influenza A/B, COVID-19 antigen (07/09/2024 11:34 AM HELPDESK ADMINISTRATOR) Pathologist [facility] Influenza A Ag, POC Negative Negative [facility] Influenza B Ag, POC Negative Negative [facility] COVID-19 Ag POC Presumptive Negative Presumptive Negative, Invalid [facility] Nasal 07/09/2024 11:3 4 AM HELPDESK ADMINISTRATOR us Manjula Gonzalez NP POINT OF CARE TEST ORDERABLES Final Result [facility] [address] [place] [address] * (ABNORMAL) eGFR (07/03/2024 12:19 PM HELPDESK ADMINISTRATOR) Pathologist [facility] eGFR 6(L) >=60 mL/min/1. 73 m2 Comment: [...] reviewed 2021. Blood 07/03/2024 12:1 9 PM HELPDESK ADMINISTRATOR 07/03/2024 12:19 PM HELPDESK ADMINISTRATOR us Marcella Taylor MD LAB BLOOD ORDERABLES Final Resul t [facility] Department of Laboratories [place], [place] [id number] * (ABNORMAL) Differential, auto (07/03/2024 12:19 PM HELPDESK ADMINISTRATOR) Pathologist [facility] Neutrophil abs 9.6(H) 1.5 - 6.5 K/cumm Comment:Testing performed by : [facility], [address] [place] [id number] Imm gran abs 0.1 0.0 - 0.1 K/cumm [facility] Lymphocyte abs 1.1 0.8 - 3.3 K/cumm [facility] Monocyte abs 0.7 0.2 - 0.8 K/cumm [facility] Eosinophil abs 0.4 0.0 - 0.5 K/cumm [facility] Basophil abs 0.1 0.0 - 0.1 K/cumm [facility] Neutrophil pct 79.8 % [facility] Comment: Interpretive Data Percent cell count reference ranges are not reported, since discordance with absolute values may lead to misinterpretation of CBC data. Current Interpretive Data was last revised on 2017. Imm gran pct 0.5 % [facility] Comment: Interpretive Data Percent cell count reference ranges are not reported, since discordance with absolute values may lead to misinterpretation of CBC data. Current Interpretive Data was last revised on 2017. Lymphocyte pct 9.4 % PITA [facility] Comment: Interpretive Data Percent cell count reference ranges are not reported, since discordance with absolute values may lead to misinterpretation of CBC data. Current Interpretive Data was last revised on 2017. Monocyte pct 5.9 % PITA [facility] Comment: Interpretive Data Percent cell count reference ranges are not reported, since discordance with absolute values may lead to misinterpretation of CBC data. Current Interpretive Data was last revised on 2017. Eosinophil pct 3.7 % PITA [facility] Comment: Interpretive Data Percent cell count reference ranges are not reported, since discordance with absolute values may lead to misinterpretation of CBC data. Current Interpretive Data was last revised on 2017. Basophil pct 0.7 % PITA [facility] Comment: Interpretive Data Percent cell count reference ranges are not reported, since discordance with absolute values may lead to misinterpretation of CBC data. Current Interpretive Data was last revised on 2017. Blood 07/03/2024 12:1 9 PM HELPDESK ADMINISTRATOR 07/03/2024 12:19 PM HELPDESK ADMINISTRATOR us Marcella Taylor MD LAB BLOOD ORDERABLES Final Resul t PITA [facility] [place] [address] * (ABNORMAL) CBC with auto differential (07/03/2024 12:19 PM HELPDESK ADMINISTRATOR) WBC 12.0(H) 3.8 - 9.9 K/cumm Comment:Testing performed by : [facility], [address] [place] [address] Hgb 9.1(L) 13.0 - 17.5 g/dL PITA [facility]GER Comment:Testing performed by : [facility] [address] [address] Hct 28.8(L) 38.9 - 50.3 % [facility] Comment:Testing performed by : [address] [address] Plt 230 150 - 400 K/cumm [facility] Comment:Testing performed by : [address] [address] MPV 10.0 9.1 - 12.3 fL [facility] RBC 3.49(L) 4.30 - 5.80 M/cumm [facility] MCV 82.5 81.3 - 96.4 fL [facility] MCH 26.1(L) 27.1 - 33.3 pg [facility] MCHC 31.6(L) 32.3 - 35.7 g/dL [facility] RDW CV 16.6(H) 11.1 - 14.9 % [facility] RDW SD 50.1(H) 35.7 - 48.1 fL [facility] NRBC abs 0.00 0.00 - 0.01 K/cumm [facility] Blood 07/03/2024 12:1 9 PM HELPDESK ADMINISTRATOR 07/03/2024 12:19 PM HELPDESK ADMINISTRATOR us Marcella Taylor MD LAB BLOOD ORDERABLES Final Resul t Performing Organization Address City/[facility] Co de Phone Number [facility] [place] [address] * Lactate dehydrogenase (LD) (07/03/2024 12:19 PM HELPDESK ADMINISTRATOR) Lactate dehydrogenase (LDH) 239 100 - 250 Units/L Comment:Testing performed by : [address] [address] Blood 07/03/2024 12:1 9 PM HELPDESK ADMINISTRATOR 07/03/2024 12:19 PM HELPDESK ADMINISTRATOR us Marcella Taylor MD LAB BLOOD ORDERABLES Final Resul t Performing Organization Address City/State/[facility] Co de Phone Number [facility] Department [place] [address] * (ABNORMAL) Comprehensive metabolic panel (07/03/2024 12:19 PM HELPDESK ADMINISTRATOR) Sodium 144 135 - 145 mmol/L Comment:Testing performed by : [facility], [address] [facility] [address] Potassium, pl 4.4 3.3 - 4.9 mmol/L [facility] Chloride 109 97 - 110 mmol/L [facility] CO2 22 22 - 32 mmol/L [facility] Anion gap 13 2 - 15 mmol/L [facility] BUN 75(H) 6 - 25 mg/dL [facility] Creatinine 7.93(H) 0.80 - 1.30 mg/dL [facility] Glucose 145 70 - 199 mg/dL [facility] Comment: Interpretive Data Fasting glucose >/= [...] 2022. Calcium 7.9(L) 8.5 - 10.3 mg/dL [facility] Bilirubin, total 0.6 0.1 - 1.2 mg/dL [facility] Protein, pl 6.3(L) 6.5 - 8.5 g/dL [facility] Albumin 3.4(L) 3.5 - 5.0 g/dL [facility] Alk phos 74 40 - 130 Units/L [facility] ALT 9 7 - 55 Units/L [facility] AST 15 10 - 50 Units/L [facility] Blood 07/03/2024 12:1 9 PM HELPDESK ADMINISTRATOR 07/03/2024 12:19 PM HELPDESK ADMINISTRATOR us Marcella Taylor MD LAB BLOOD ORDERABLES Final Resul t [facility] [place] [address] * PET/CT FDG Skull to Thigh (06/27/2024 9:08 AM HELPDESK ADMINISTRATOR) Anatomical Region Laterality Modality N/A Positron Emissio n Tomography (PET) 06/27/2024 9:48 AM HELPDESK ADMINISTRATOR Impressions 06/27/2024 1:52 PM HELPDESK ADMINISTRATOR 1. Continued treatment response with decrease in [...] and agrees with it. Electronically signed by: MD Francisco Javier Weiss 06/27/2024 1:52 PM HELPDESK ADMINISTRATOR EXAMINATION: TUMOR FDG-PET/CT IMAGING DATE OF STUDY: [...] obtained. The study was interpreted on the [employer] Arc workstation. The mean liver SUV (reported for quality control assessor purposes) is 1.9. The total scanned area [...] obtained. The study was interpreted on the [employer] Arc workstation. The mean liver SUV (reported for quality control assessor purposes) is 1.9. The total scanned area [...] Albumin Creatinine Ratio, Urine (05/13/2024 9:16 AM HELPDESK ADMINISTRATOR) Albumin Ur 3,688.8 mg/L Comment: Interpretive Data No reference range established. Current interpretive data was last revised 2018. Creatinine Ur 59.2 mg/dL [facility] Comment: Interpretive Data No reference range established. Current interpretive data was last revised 2018. Albumin Creatinine Ratio, Ur 6,231(H) 1 - 29 mg/g [facility] Urine 05/13/2024 9:16 AM HELPDESK ADMINISTRATOR 05/13/2024 2:55 PM HELPDESK ADMINISTRATOR Matt Kendrick MD LAB URINE ORDERABLE S Final Result [facility] [address] Department [place] [address] * (ABNORMAL) Lipid panel (05/13/2024 9:16 AM HELPDESK ADMINISTRATOR) Cholesterol 128 30 - 199 mg/dL Comment: [...] revised on 2018. Triglycerides 67 <=149 mg/dL [facility] Comment: Interpretive Data Ages < or = [...] on 2018. HDL 37(L) >=40 mg/dL [facility] Comment: Interpretive Data Ages < [...] 2018. LDL, calculated 77 <=129 mg/dL [facility] Comment: Interpretive Data Ages < [...] NCEP Expert Panel. Circulation 2004;110:227 3. Ovidio Khoruy al. JOVI Cardiol. 2020 October 03;5(5):540-548. doi: 10.1001/jamacardio.2020.0013 Current Interpretive Data was last revised on 2024. Non-HDL Cholesterol 91 mg/dL [facility] Comment: Interpretive Data Ages < [...] revised on 2018. Chol/HDL ratio 3 [facility] Blood 05/13/2024 9:16 AM HELPDESK ADMINISTRATOR 05/13/2024 2:55 PM HELPDESK ADMINISTRATOR us Matt Kendrick MD LAB BLOOD ORDERABLE S Final Result [facility] [address] Department [place] [address] * CT abdomen pelvis without contrast (12/14/2023 [...]
[2024-09-05 14:57] VITALS: BP 158/65; PULSE 65; RESP 20; O2SAT 98
--- NOTE | 2024-09-05 15:22 | ED_ITS ---
HPI - General Adult General Chief complaint: Chest Pain Stated complaint: CP Time Seen by Provider: 09/05/24 14:13 History of Present Illness HPI narrative: 78-year-old male presents to the emergency department for evaluation after having near syncopal episode at dialysis. Patient reports he has been on severlamer carbonate and has been causing him to have some increased nausea. While at dialysis patient had 800 mL of fluid drained and did have some associated lightheadedness. Patient was also complaining of some left shoulder pain that he attributes to a chronic bursitis. At time of evaluation patient states he feels improved is requesting to be discharged to home Related Data Allergies Allergy/AdvReac Type Severity Reaction Status Date / Time No Known Allergies Allergy Verified 09/05/24 13:45 Review of Systems 2 Review of Systems: All systems reviewed & are unremarkable except as noted in HPI and below PMFSH Past Medical History Medical History Insulin dependent diabetes mellitus Social History Social History Smoking status: Former smoker Smoking end date: 06/05/10 Alcohol intake: never Do You Feel Safe in your Home?: Yes Lack of Transportation: No Lack of Food: Never True Current Housing: I Have Housing Concerned About Future Housing: No Difficulty Paying Gas/Electric Bills: No Difficulty Paying for Meds: No Currently Unemployed: No Education: High School Diploma/GED Exam 2 Narrative: APPEARANCE: No distress HEAD: normocephalic, atraumatic. EYES: PERRLA/EOMI, conjunctivae clear. NOSE: Normal no drainage EARS:TMS clear with good light reflex. THROAT: Pharynx clear, no exudate. NECK: Supple. No adenopathy, no masses. RESPIRATORY: Airway patent, respirations nonlabored. Clear to auscultation bilaterally, no rales, rhonchi, wheezing. CARDIOVASCULAR: Regular rate and rhythm without murmurs rubs or gallops. ABDOMINAL: Soft, nontender, nondistended, normal bowel sounds MUSCULOSKELETAL: Moves all extremities. Strength/ROM intact, No edema, No calf tenderness. NEURO: Alert. Cranial nerves II through XII intact. Grossly intact SKIN: Warm, dry. Normal Color Course Vital Signs Vital signs: Vital Signs Temperature 98.1 F 09/05/24 13:42 Pulse Rate 63 09/05/24 13:42 Respiratory Rate 19 09/05/24 13:42 Blood Pressure 158/90 H 09/05/24 13:42 Pulse Oximetry 100 09/05/24 13:42 Oxygen Delivery Room Air 09/05/24 13:42 Temperature 98.1 F 09/05/24 13:42 Pulse Rate 67 09/05/24 15:41 Respiratory Rate 18 09/05/24 15:41 Blood Pressure 163/77 H 09/05/24 15:41 Pulse Oximetry 97 09/05/24 15:41 Oxygen Delivery Room Air 09/05/24 13:44 Medical Decision Making MDM Narrative Medical decision making narrative: 70-year-old male present to the emergency department for evaluation for an episode of near syncope during dialysis. Patient is currently afebrile with no leukocytosis and hemoglobin of 10.5. Patient has a potassium of 3.3 a creatinine of 3.49 and a BUN of 27. Patient's troponin was negative. Chest x- ray shows no focal infiltrate or effusion. Patient family are updated on the results of the workup they are comfortable the plan for discharge home. All questions concerns were addressed. Differential Diagnosis Differential Diagnosis: Dehydration, syncope, cardiac arrhythmia, COVID, RSV, influenza, UTI Vital Signs Vital Signs: Vital Signs Temperature 98.1 F 09/05/24 13:42 Pulse Rate 63 09/05/24 13:42 Respiratory Rate 19 09/05/24 13:42 Blood Pressure 158/90 H 09/05/24 13:42 Pulse Oximetry 100 09/05/24 13:42 Oxygen Delivery Room Air 09/05/24 13:42 Temperature 98.1 F 09/05/24 13:42 Pulse Rate 67 09/05/24 15:41 Respiratory Rate 18 09/05/24 15:41 Blood Pressure 163/77 H 09/05/24 15:41 Pulse Oximetry 97 09/05/24 15:41 Oxygen Delivery Room Air 09/05/24 13:44 Lab Data Lab results reviewed: Yes I reviewed the patient's lab results. 09/05/24 13:56 09/05/24 13:56 Labs: Lab Results 09/05/24 Range/Units 13:56 WBC 8.4 (4.5-10.0) K/mm3 RBC 3.78 L (4.6-6.20) M/mm3 Hgb 10.5 L (14.0-18.0) g/dL Hct 32.9 L (42.0-52.0) % MCV 87.0 (80-100) fl MCH 27.8 (26-34) pg MCHC 31.9 L (32-36) g/dl RDW 17.7 H (11.5-14.5) % Plt Count 179 (150-375) k/mm3 MPV 9.7 (7.4-10.4) fl Immature Gran % (Auto) 0.2 (0-0.5) % Neut % (Auto) 67.5 (45.5-73.1) % Lymph % (Auto) 17.1 L (18.3-44.2) % [place] % (Auto) 11.2 H (2.6-8.5) % Eos % (Auto) 3.3 (0-4.4) % Baso % (Auto) 0.7 (0.2-1.2) % Lymph # (Auto) 1.44 (0.9-3.2) K/mm3 [place] # (Auto) 0.9 H (0.1-0.6) K/mm3 Eos # (Auto) 0.3 (0-0.3) K/mm3 Baso # (Auto) 0.1 (0.0-0.1) K/mm3 Abs Immat Gran (auto) 0.02 (0.00-0.031) K/mm3 Absolute Neuts (auto) 5.7 (1.3-6.7) K/mm3 Absolute Nucleated RBC 0.000 (0.0-0.012) K/mm3 Nucleated RBC % 0.0 (0.0-0.2) % PT 13.4 (11.1-14.7) Seconds INR 1.0 APTT 30.6 (22.3-36.8) Seconds Sodium 136 L (137-145) mmol/L Potassium 3.3 L (3.4-5.0) mmol/L Chloride 101 (98-107) mmol/L Carbon Dioxide 26 (22-30) mmol/L Anion Gap 9 (4-12) mmol/L BUN 27 H (9-20) mg/dL Creatinine 3.49 H (0.7-1.3) mg/dL Estim Creat Clear Calc 17 ml/min Estimated GFR 17 L (59 - ) Glucose 172 H (65-110) mg/dL Calcium 7.5 L (8.4-10.2) mg/dL Total Bilirubin 0.6 (0.2-1.3) mg/dL AST 21 (17-59) U/L ALT 16 (6-50) U/L Alkaline Phosphatase 91 (38-126) U/L Troponin I 0.013 (0.000-0.034) ng/mL Total Protein 6.0 L (6.3-8.2) g/dL Albumin 3.5 (3.5-5.1) g/dL Lipase 65 (23-300) U/L Discharge Plan Discharge Clinical Impression: Near syncope, Acute chest wall pain Patient Disposition: Home, Self-Care Condition: Stable Instructions: Antibiotic Form Additional Instructions: Have close follow-up with your physicians. If you have any worsening symptoms and please call or return to the emergency department. Patient Language: Portuguese Prescriptions: No Action hydrocodone-acetaminophen 5-325 mg tablet 1 tablet PO Q6H PRN (Reason: pain) Qty: 12 0RF docusate sodium [Colace] 100 mg capsule 100 mg PO BID Qty: 14 0RF Follow-up/Referrals: Gerard Mo MD [Primary Care Provider] -
[2024-09-05 15:41] VITALS: BP 163/77; PULSE 67; RESP 18; O2SAT 97
== END 2024-09-05 15:35 | disposition home or self-care (01) ==
PROVIDERS: Emergency Provider Emergency Medicine; PCP Emergency Medicine
DX: R55 Syncope and collapse (principal); R07.89 Other chest pain; E11.9 Type 2 diabetes mellitus without complications; Z87.891 Personal history of nicotine dependence
CPT/HCPCS: 36415; 71046; 80053; 83690; 84484; 85025; 85610; 85730; 93005; 99284

== ENCOUNTER 2024-10-29 15:56 | Emergency (ER) | payer MEDICARE, OTHER, SELFPAY ==
[2024-10-29] VITALS (17 sets, daily range): BP systolic 161–173; BP diastolic 37–82; PULSE 63–78; RESP 12–23; TEMP 36.8–36.9; O2SAT 96–100
--- NOTE | ~2024-10-29 | XR_ITS ---
CHEST RADIOGRAPH, PA AND LATERAL CLINICAL HISTORY: CP/tightness MIDSTERNAL X SEVERAL DAYS . COMPARISON: 09/05/2024 TECHNIQUE: PA and lateral views of the chest. FINDINGS Sternal wires and mediastinal clips are identified, the wires are midline and intact. Right internal jugular tunneled central venous hemodialysis catheter identified with its tip projecti ng over the cavoatrial junction. The remainder of the cardiomediastinal silhouette is otherwise unremarkable. The lungs are clear. IMPRESSION: No focal infiltrate or effusion. Reviewed, dictated and finalized at location A.
--- NOTE | ~2024-10-29 | CT_ITS ---
CT Scan of the Chest without Contrast: Clinical Indication: Shortness of breath Technique: Contiguous sections were acquired throughout the chest without intravenous contrast. Dose reduction technique was used on this scan by utilizing automated exposure control and iterative recon struction technique. The dose-length product (DLP) was 332.32 mGy-cm. Findings: Mildly enlarged lymph nodes are present along the right paratracheal stripe in the precarinal and sub carinal regions. There are extensive atherosclerotic calcifications of the aorta and coronary arterie s. No aortic aneurysm. No pericardial effusion. Minimal right pleural fluid present. No left pleural effusion. The lungs are clear. No pulmonary nodules or infiltrates are noted. Images through the upper abdomen reveal multiple calcified gallstones and probable mild bilateral hyd ronephrosis. Impression: Minimal right pleural fluid, otherwise clear lungs. Mild mediastinal lymphadenopathy, nonspecific. Correlate for reactive/inflammatory lymph nodes versus any possibility of lymphoma or other metastatic disease. Cholelithiasis. Probable mild bilateral hydronephrosis. Reviewed, dictated and finalized at [facility]. Impression: Minimal right pleural fluid, otherwise clear lungs. Mild mediastinal lymphadenopathy, nonspecific. Correlate for reactive/inflammat ory lymph nodes versus any possibility of lymphoma or other metastatic disease. Cholelithiasis. Probable mild bilateral hydronephrosis.
--- NOTE | 2024-10-29 15:58 | ECG_ITS ---
Test Date: 2024-10-29 20:06:26 Measurements Intervals Nash Rate: 68 P: 50 ND: 169 QRS: 52 QRSD: 94 T: 40 QT: 422 QTc: 450 Interpretive Statements SINUS RHYTHM WITH FREQUENT VENTRICULAR PREMATURE COMPLEXES POSSIBLE LEFT ATRIAL ENLARGEMENT [-0.1mV P WAVE IN V1/V2] MODERATE T-WAVE ABNORMALITY, CONSIDER LATERAL ISCHEMIA [-0.1+ mV T WAVE IN I/aVL/V5/V6] Compared to ECG 10/29/2024 16:05:15 No significant changes Electronically Signed On 10-30-2024 16:35:18 CDT by Horacio Schumacher M.D.
--- OUTSIDE RECORDS SUMMARY | 2024-10-29 15:59 | XMS_ITS ---
Author Name [facility] Organization [facility] Address [address] [place] [address] Support Name Relationship Address Phone TYECARMEN Next of Kin [address] [place] [address] CARMEN GAMBLE Emergency Contact [address] [place] [address] Insurance Providers: All historical and [...] PART A Sep 03, 2010 PART A [id number] JULEEJUSTYNALEX LAWS PATIENT MEDICARE (WNR) MEDICARE (M) PART B Sep 03, 2010 PART B [id number] [phone] ALEX GAMBLE PATIENT Selected Encounter This section includes the information on record at [place] for the Encounter. Date/Time Encounter Type Encounter Description Reason Provider Source Dec 04, 2023 02:24 PM HEARING AID REPAIR/MODIFYIN G AUDIOLOGY ICD-10-CM H90.3 Sensorineural hearing loss, bilateral KATE DAVIS Encounter Template Text not used by [place] Assessments - Encounter Diagnoses This section includes the primary and secondary diagnoses documented for the Encounter. Date/Time Primary/Secondary Diagnosis Diagnosis Name Provider Source Dec 04, 2023 02:44 PM PRIMARY Sensorineural hearing loss, bilateral CARLOS ZAMUDIO [facility] Encounter Notes: All associated encounter notes This section contains the clinical notes associated to the Encounter. Date/Time Encounter Note(s) Provider Source Dec 04, 2023 02:24 PM AUDIOLOGY DEHYDRATOR OPERATOR NOTE: LOCAL TITLE: HEARING AIDS STL STANDARD TITLE: AUDIOLOGY DEHYDRATOR OPERATOR NOTE DATE OF NOTE: DEC 04, 2023@14:24 ENTRY DATE: DEC 04, 2023@14:24:12 AUTHOR: CARLOS ZAMUDIO COSIGNER: KATE DAVIS URGENCY: STATUS: COMPLETED SUBJECT: audio HEARING AIDS STL Has ADDENDA HAC: Pt dropped off both 2019 Phonak Audeo M90-RT RICs with c/o Right won't charge. Placed aids in clinic fire extinguisher charger; both charged to full battery without issue. Listening check revealed weak sound quality in left and WNL sound quality in right. Cleaned and checked aids; brushed yaz ports, changed wax guards, and replaced 3ML esl tutor. Listening check revealed WNL sound quality AU. Called pt at [phone] and spoke with female family member. Notified her of repair actions. Advised the fire extinguisher charger be unplugged and replugged as a hard reset. Will mail aids back to pt address. If charging issue persists, pt will call to have new fire extinguisher charger ordered through [facility] and mailed to pt address. Verified address: [address] [place], [place] [id number] Ordered 3ML esl tutor to replenish clinic stock. /es/ CARLOS ZAMUDIO Dinkey Press Operator Signed: 12/04/2023 14:46 /jeff/ KATE Tripathi Storage Wharfage Clerk, Surgery Service Cosigned: 12/05/2023 15:43 12/05/2023 ADDENDUM STATUS: COMPLETED The information above has been reviewed by this provider. I am in agreement with the action plan as outlined. /jeff/ KATE Tripathi Storage Wharfage Clerk, Surgery Service Signed: 12/05/2023 15:43 12/08/2023 ADDENDUM STATUS: COMPLETED [id number] /jeff/ KATE DAVIS Staff Storage Wharfage Clerk, Surgery Service Signed: 12/08/2023 15:32 12/12/2023 ADDENDUM STATUS: COMPLETED Received esl tutor and placed in clinic stock, 3M-left. /es/ Balwinder CASTILLO Staff Storage Wharfage ClerkShady, Surgery Service Signed: 12/12/2023 11:03 CARLOS ZAMUDIO [facility]
--- OUTSIDE RECORDS SUMMARY | 2024-10-29 15:59 | XMS_ITS | Continuity of Care Document ---
Author Organization [facility] Address [address] [place] [address] [address] [place] [address] Phone Care Team Providers Care Creasing Machine Operator Name Role Phone Bianca Moran Unavailable Advance Directives Directive Yes / No Effective Date File Name No Information Encounters Encounter Description Practice Location Reason(s) For Visit Diagnoses Date Provider Providers Copied on Encounter [facility], [address], [place], [place], [id number], [place] tel:[phone] [facility] No Information Jul-0 [address]a. [address] , [address], [place], [address], [place]. tel:[phone] Family History Family Member Type Diagnosis Age At Onset No Information Payers Payer name Insurance type Covered democrat ID Authoriza tion(s) [employer] SOI CI [id number] Social History Type Description Quantity Date Captured [...]
--- OUTSIDE RECORDS SUMMARY | 2024-10-29 15:59 | XMS_ITS ---
Author Organization [facility] Address [address] [place] [address] Care Team Providers Care Furniture Repairer Name Role Phone Marcella Taylor MD Unavailable Anselmo Sampson MD Primary Care Provider [phone] Godfrey Villarreal MD Unavailable Active Problems Problem Noted Date Diagnosed Date End stage renal disease on dialysis 10/14/2024 ESRD (end stage renal disease) on dialysis 08/27 ESRD (end stage renal disease) 07/11/2024 Assessment & Plan (07/14/2024 9:38 AM GAME ROOM ATTENDANT): Patient has had progression of CKD to now ESRD needing dialysis initiation given c/f uremia symptoms. Directly admitted per renal. Underwent tunneled dialysis catheter by IR on 07/12 and received HD on 07/12 and 07/13 -Hemodialysis as per Nephrology -Continue home bicarb URI (upper respiratory infection) 07/11/2024 Assessment & Plan (07/12/2024 12:59 PM GAME ROOM ATTENDANT): Suspected viral. COVID/flu/RSV neg 07/09. CXR neg 07/10. Was prescribed azithromycin on 07/09 which he took for 3 days. Will not continued further -Supportive care Hypomagnesemia 01/02/2024 CKD (chronic kidney disease) stage 4, GFR 15-29 ml/min 04/16/2023 Assessment & Plan (07/25/2023 10:06 AM GAME ROOM ATTENDANT): Chronic problem. Managed by Dr Flores. Has f/u appt at end of the month. Assessment & Plan (04/16/2023 8:48 PM GAME ROOM ATTENDANT): Chronic, stable Following with [facility] Associate Acute kidney injury 02/24/2023 (HFpEF) heart failure with preserved ejection fr action 02/24/2023 Assessment & Plan (02/24/2023 3:38 PM CDT): TTE with EF 77% and at least grade 1 diastolic dysfunction (indeterminate on last TTE). Not in exacerbation -Cont home lasix 40mg -strict I&Os, daily weights -F/u with OSH Sales Review Clerk Dr. Payton CAD (coronary artery disease) 02/24/2023 Assessment & Plan (02/24/2023 3:38 PM CDT): S/p prior 5v CABG in 2012 -Cont statin and coreg -Intolerant of PATI-I/ARB due to worsening renal function -ASA held due to procedure -F/u with Cardiology outpatient Hyperlipidemia associated with type 2 diabetes aimee ulloa 02/24/2023 Assessment & Plan (07/11/2024 9:32 PM GAME ROOM ATTENDANT): -Continue home welchol -Atorvastatin for home pitavastatin (non-formulary) Assessment & Plan (05/13/2024 9:10 AM GAME ROOM ATTENDANT): Continue statin therapy Assessment & Plan (11/16/2023 11:18 AM CDT): Chronic problem. Currently taking Pitavatatin 4mg daily. Last lipid panel: 02/24/23 LDL=76, BP=052. Assessment & Plan (07/25/2023 10:22 AM GAME ROOM ATTENDANT): Chronic problem. Currently taking Pitavatatin 4mg daily. Last lipid panel: 02/24/23 LDL=76, DB=478. Assessment & Plan (04/16/2023 8:46 PM GAME ROOM ATTENDANT): On Pitavastatin therapy Tolerating well Assessment & Plan (02/24/2023 3:39 PM CDT): Cont statin and colesevelam Type 2 diabetes mellitus wit h stage 4 chronic kidney disease, with long-term current use of insulin 02/24/2023 Assessment & Plan (07/11/2024 9:31 PM GAME ROOM ATTENDANT): F/b endo. Home regimen: tresiba 5U QHS, aspart 6-8U TID with meals Pt/ report issues with hypoglycemia lately at home. -Will start with SSI for now; titrate/add scheduled insulin pending glucose trends Assessment & Plan (05/13/2024 9:10 AM GAME ROOM ATTENDANT): Chronic, uncontrolled, worsening Hemoglobin A1c 6.8 A1c [...] soon Daily foot care Advise to call [employer] and get the dexcom G 6 sensor to switch to G7 Check labs today Follow-up in 6 months Assessment & Plan (11/16/2023 11:17 AM CDT): Chronic problem. A1c stable at 6.1% but having overnight lows & occasionally lows after LN. Call your supply [employer] to switch from Dexcom G6 to Dexcom G7. Lower tresiba to 6 units nightly. If you notice that your over night readings are too high--start to increase by 1 unit weekly until they return to normal. If you're eating a linter saw sharpener lunch--drop the Fiasp to 6 units. Current medications: Tresiba 6 units at bedtime Fiasp 4 units with breakfast & dinner, 8 units with lunch (6 units if linter saw sharpener lunch) If blood sugar is between 151-200, add 1 units. If blood sugar is between 201-250, add 2 units. If blood sugar is between 251-300, add 3 units. If blood sugar is between 301-350, add 4 units. UTD on DM eye exam (06/15/23 at [facility]). UTD on labs. Discussed with Navdeep Payton: [...] infection. Assessment & Plan (07/25/2023 10:02 AM GAME ROOM ATTENDANT): Chronic problem. A1c stable at 6.1% but having overnight lows & occasionally lows after LN. Call your supply company to switch from Dexcom G6 to Dexcom G7. Lower tresiba to 6 units nightly. If you notice that your over night readings are too high--start to increase by 1 unit weekly until they return to normal. If you're eating a linter saw sharpener lunch--drop the Fiasp to 6 units. Current medications: Tresiba 6 units at bedtime Fiasp 4 units with breakfast & dinner, 8 units with lunch (6 units if linter saw sharpener lunch) If blood sugar is between 151-200, add 1 units. If blood sugar is between 201-250, add 2 units. If blood sugar is between 251-300, add 3 units. If blood sugar is between 301-350, add 4 units. DM eye exam 06/2023 at [facility]. Letter sent to get copy of [...] infection. Assessment & Plan (04/16/2023 8:47 PM GAME ROOM ATTENDANT): Chronic , improving overall hyperglycemia but now [...] TID +SSI; adjust PRN -F/u with OSH vrt mechanic Proteinuria 02/24/2023 Assessment & Plan (02/25/2023 7:46 [...] 11/04/2021 Assessment & Plan (07/12/2024 12:57 PM GAME ROOM ATTENDANT): Getting aranesp outpatient -Trend CBC -Transfuse PRN [...] 11/04/2021 Assessment & Plan (07/11/2024 9:30 PM GAME ROOM ATTENDANT): -Continue home amlodipine, hydralazine, coreg Assessment & Plan (05/13/2024 9:11 AM GAME ROOM ATTENDANT): Chronic, fairly controlled for pt age Continue amlodipine Managed by nephrology Assessment & Plan (11/16/2023 11:18 AM CDT): Chronic problem. Controlled on current Carvedilol 25mg bid, amlodipine 10mg daily, lasix 20mg daily. not taking hydralazine currently Assessment & Plan (07/25/2023 10:05 AM GAME ROOM ATTENDANT): Chronic problem. Controlled on current Carvedilol 25mg bid, amlodipine 10mg daily, lasix 20mg daily. 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
--- OUTSIDE RECORDS SUMMARY | 2024-10-29 15:59 | XMS_ITS | Encounter Summary ---
Author Organization [facility] Address [address] [facility] [address] [place] [address] Phone Care Team Providers Care Curriculum Advisory Teacher Name Role Phone Marcella Taylor MD Unavailable Anselmo Sampson MD Primary Care Provider [phone] Godfrey Villarreal MD Unavailable [phone] Encounter Details Date Type Department Care Team [...] on file Legal Sex Male 6:14 AM RIVET TESTER Gender Identity Not on file Sexual Orientation Not on file documented as of this encounter Plan of Treatment Upcoming Encounters Date Type Department Care Team (Latest Contact Info) Description 11/04/2024 12:00 PM CDT Hospital Encounter [facility] Operating Room [address] [place] [address] Godfrey Villarreal MD [address] [facility] [address] [place] [address] 11/04/2024 12:00 PM CDT Anesthesia Event [facility] Operating Room [address] [place] [address] Maryjo Galicia, INVESTMENT ASSOCIATE [address] [place] [address] 11/04/2024 12:00 PM CDT - 11/04/2024 3:05 PM CDT Surgery [facility] Operating [address] [place] [address] Godfrey Villarreal MD [address] [facility] [address] [place] [address] CREATION ARTERIOVENOUS FISTULA - ARM-brachialcephalic Scheduled Procedures Name Priority Associated Diagnoses Date/Ti me CREATION ARTERIOVENOUS FISTULA - ARM 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) 11/04/2024 12:00 PM CDT REVISION ARTERIOVENOUS FISTULA - ARM End stage renal disease on dialysis ([facility]) 11/04/2024 12:00 PM CDT documented as of this encounter Procedures Procedure Name Priority Date/Time Associated Diagnosis Comments SCAN - LABS 02/14/2023 documented in this encounter Results * SCAN - LABS (02/14/2023) Provider Scanning Final Result documented in this encounter Visit Diagnoses Not on filedocumented in this encounter Additional Health Concerns Infection Onset Date Last Indicated Resolved Time COVID: Suspected 10/09/2023 10/09/2023 10/09/2023 2:41 PM CDT COVID: Suspected 07/09/2024 07/09/2024 07/09/2024 11:36 AM RIVET TESTER COVID: Suspected 07/09/2024 07/09/2024 07/09/2024 4:05 PM RIVET TESTER documented as of this encounter Care Teams Curriculum Advisory Teacher Relationship Specialty [place] [address] [place] [id number] PCP - General Family Practice 04/26/22 Marcella Taylor MD [address] [place] [address] [address] [place] [address] Medical Oncologist/Clay Products Machine Operator Medical Oncology 08/08/20 Godfrey Villarreal MD [address] [facility] [address] [place] [address] Surgeon Vascular Surgery 09/20/24 documented as of this encounter
--- OUTSIDE RECORDS SUMMARY | 2024-10-29 15:59 | XMS_ITS | Encounter Summary ---
Author Organization [facility] Address [address] [facility] [address] [place] [address] Phone Care Team Providers Care Title One Kindergarten Teacher Name Role Phone Marcella Taylor MD Unavailable Anselmo Sampson MD Primary Care Provider [phone] Godfrey Villarreal MD Unavailable [phone] Encounter Details Date Type Department Care Team [...] on file Legal Sex Male 6:14 AM STUD DRIVER Gender Identity Not on file Sexual Orientation Not on file documented as of this encounter Plan of Treatment Upcoming Encounters Date Type Department Care Team (Latest Contact Info) Description 11/04/2024 12:00 PM CDT Hospital Encounter [facility] Operating [address] [place] [address] Godfrey Villarreal MD [address] [facility] [address] [place] [address] 11/04/2024 12:00 PM CDT Anesthesia Event [facility] Operating [address] [place] [address] Maryjo Galicia, BIOMEDICAL SERVICE ENGINEER [address] [place] [address] 11/04/2024 12:00 PM CDT - 11/04/2024 3:05 PM CDT Surgery [facility] Operating [address] [place] [phone] Godfrey Villarreal MD [address] [facility] [address] [place] [address] CREATION ARTERIOVENOUS FISTULA - ARM-brachialcephalic Scheduled Procedures Name Priority Associated Diagnoses Date/Ti me CREATION ARTERIOVENOUS FISTULA - ARM 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) 11/04/2024 12:00 PM CDT REVISION ARTERIOVENOUS FISTULA - ARM End stage renal disease on dialysis ([facility]) 11/04/2024 12:00 PM CDT documented as of this encounter Procedures Procedure Name Priority Date/Time Associated Diagnosis Comments SCAN - LABS 02/10/2023 documented in this encounter Results * SCAN - LABS (02/10/2023) Provider Scanning Final Result documented in this encounter Visit Diagnoses Not on filedocumented in this encounter Additional Health Concerns Infection Onset Date Last Indicated Resolved Time COVID: Suspected 10/09/2023 10/09/2023 10/09/2023 2:41 PM CDT COVID: Suspected 07/09/2024 07/09/2024 07/09/2024 11:36 AM STUD DRIVER COVID: Suspected 07/09/2024 07/09/2024 07/09/2024 4:05 PM STUD DRIVER documented as of this encounter Care Teams Title One Kindergarten Teacher Relationship Specialty Start [place] [address] [place] [id number] PCP - General Family Practice 04/26/22 Marcella Taylor MD [address] [place] [address] [address] [place] [address] Medical Oncologist/Lead Generation Specialist Medical Oncology 08/08/20 Godfrey Villarreal MD [address] [facility] [address] [place] [address] Surgeon Vascular Surgery 09/20/24 documented as of this encounter
--- OUTSIDE RECORDS SUMMARY | 2024-10-29 15:59 | XMS_ITS | Encounter Summary ---
Author Organization [facility] Address [address] [place] [address] Phone Care Team Providers Care Horse Race Timer Name Role Phone Marcella Taylor MD Unavailable Anselmo Sampson MD Primary Care Provider [phone] Godfrey Villarreal MD Unavailable [phone] Encounter Details Date Type Department Care Team (Latest Contact Info) Description 10/16/2024 Results Follow-Up [facility] Oncology [address] [place] [address] Jose Antonio Gamble Lactate dehydrogenase (LD), Comprehensive metabolic panel, CBC with auto differential, Additional followed-up results: 3 Social History Tobacco Use Types Packs/Day Years Used Date Smoking Tobacco: Former Cigarettes 1.5 14 1 967 - 1980 Passive Smoke Exposure: Never Smokeless Tobacco: Never AUDIT-C Answer Date Recorded Q1: How often do you have a drink containing alcohol? Never 10/18/2024 Q2: How many drinks containi ng alcohol do you have on a typical day when you are drinking? Patient does not drink Q3: How often do you have si x or more drinks on one occasion? Never 10/18/2024 Personal Safety Answer Date Recorded Have you ever been in or are you currently in a harmful physical or emotional relationship or is someone making you feel afraid or unsafe? 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 Never 10/18/2024 8:25 AM CDT Nola Gambino RN Q2: How many drinks containing alcohol do you have on a typical day when you are drinking? Patient does not drink 10/18/2024 8:25 AM CDT Nola Gambino RN Q3: How often do you have six or more drinks on one occasion? Never 10/18/2024 8:25 AM CDT Nola Gambino RN documented as of this encounter Miscellaneous Notes * Result Encounter Note - Jose Antonio Gamble - 10/16/2024 2:46 PM CDT Please review and advise documented in this encounter Plan of Treatment Upcoming Encounters Date Type Department Care Team (Latest Contact Info) Description 11/04/2024 12:00 PM CDT Hospital Encounter [facility] Operating Room [address] [place] [address] Godfrey Villarreal MD [address] [facility] [address] [place] [address] 11/04/2024 12:00 PM CDT Anesthesia Event [facility] Operating Room [address] [place] [address] Maryoj Galicia NP [address] [place] [address] 11/04/2024 12:00 PM CDT - 11/04/2024 3:05 PM CDT Surgery [facility] Operating Room 1 [facility] [place] [address] Godfrey Villarreal MD [address] [facility] [address] [place] [address] CREATION ARTERIOVENOUS FISTULA - ARM-brachialcephalic Scheduled Procedures Name Priority Associated Diagnoses Date/Ti me CREATION ARTERIOVENOUS FISTULA - ARM 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) 11/04/2024 12:00 PM CDT REVISION ARTERIOVENOUS FISTULA - ARM 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) 11/04/2024 12:00 PM CDT documented as of this encounter Visit Diagnoses Not on filedocumented in this encounter Care Teams Horse Race Timer Relationship Specialty [place] [address] [address] PCP - General Family Practice 04/26/22 Marcella Taylor MD [address] [place] [address] [address] [place] [address] Medical Oncologist/Sales Counselor Medical Oncology 08/08/20 Godfrey Villarreal MD [address] [facility] [address] [place] [address] Surgeon Vascular Surgery 09/20/24 documented as of this encounter
--- OUTSIDE RECORDS SUMMARY | 2024-10-29 16:00 | XMS_ITS | Encounter Summary ---
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 Gender Identity Not on file Sexual Orientation Not on file documented as of this encounter Plan of Treatment Upcoming Encounters Date Type Department Care Team (Latest Contact Info) Description 11/04/2024 12:00 PM CDT Hospital Encounter [facility] Operating Room [address] [place] [address] Godfrey Villarreal MD [address] [facility] [address] [place] [address] 11/04/2024 12:00 PM CDT Anesthesia Event [facility] Operating [address] [place] [address] Maryjo Galicia, PICKER TENDER HELPER [address] [place] [address] 11/04/2024 12:00 PM CDT - 11/04/2024 3:05 PM CDT Surgery [facility] Operating [address] [place] [address] Godfrey Villarreal MD [address] [facility] [address] [place] [address] CREATION ARTERIOVENOUS FISTULA - ARM-brachialcephalic Scheduled Procedures [...] COVID: Suspected 07/09/2024 07/09/2024 07/09/2024 11:36 AM COOK CHIEF COVID: Suspected 07/09/2024 07/09/2024 07/09/2024 4:05 PM COOK CHIEF documented as of this encounter Care Teams Pediatric Physical Therapist Relationship Specialty Start Date End Date Sampson, [place] [address] [address] PCP - General Family Practice 04/26/22 Marcella Taylor MD [address] [facility] [address] [place] [address] Medical Oncologist/Beverage Manager Medical Oncology 08/08/20 Godfrey Villarreal MD [address] [facility] [address] [place] [address] Surgeon Vascular Surgery 09/20/24 documented as of this encounter
--- OUTSIDE RECORDS SUMMARY | 2024-10-29 16:00 | XMS_ITS | Encounter Summary ---
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 Gender Identity Not on file Sexual Orientation Not on file documented as of this encounter Plan of Treatment Upcoming Encounters Date Type Department Care Team (Latest Contact Info) Description 11/04/2024 12:00 PM CDT Hospital Encounter [facility] Operating Room [address] [place] [address] Godfrey Villarreal MD [address] [facility] [address] [place] [address] 11/04/2024 12:00 PM CDT Anesthesia Event [facility] Operating [address] [place] [address] Maryjo Galicia, MARY [address] [place] [address] 11/04/2024 12:00 PM CDT - 11/04/2024 3:05 PM CDT Surgery [facility] Operating [address] [place] [address] Godfrey Villarreal MD [address] [facility] [address] [place] [address] CREATION ARTERIOVENOUS FISTULA - ARM-brachialcephalic Scheduled Procedures [...] COVID: Suspected 07/09/2024 07/09/2024 07/09/2024 11:36 AM SENIOR PATROL AGENT COVID: Suspected 07/09/2024 07/09/2024 07/09/2024 4:05 PM SENIOR PATROL AGENT documented as of this encounter Care Teams Delinquent Tax Collection Assistant Relationship Specialty Start Date End Date Gerard Mo MD PCP - General 11/01/17 04/25/22 [place] [address] [address] PCP - General Family Practice 04/26/22 Marcella Taylor MD [address] [place] [address] [address] [place] [address] Medical Oncologist/Vocational Teacher Medical Oncology 08/08/20 Godfrey Villarreal MD [address] [facility] [address] [place] [address] Surgeon Vascular Surgery 09/20/24 documented as of this encounter
--- OUTSIDE RECORDS SUMMARY | 2024-10-29 16:00 | XMS_ITS | Clinical Summary ---
Author Organization [facility] Address [address] [place] [address] Care Team Providers Care Page Designer Name Role Phone Marcella Taylor MD Unavailable Anselmo Sampson MD Primary Care Provider [phone] Godfrey Villarreal MD Unavailable Allergies No known active allergies Medications cholecalciferol (VITAMIN D-3) 2,000 unit tabletIndications:V itamin D Deficiency Take 1 tablet (2,000 Units total) by mouth every morning Active coenzyme Q10 200 mg capsuleIndications: Helps cholesterol med work better Take 1 capsule (200 mg total) by mouth every morning Active carvediloL (COREG) 25 mg tabletIndications:h ypertension Take 1 tablet (25 mg total) by mouth 2 (two) times a day 2019 Active cetirizine (ZyrTEC) 10 mg tabletIndications:P erennial Allergic Rhinitis Take 1 tablet (10 mg total) by mouth daily as needed for allergies Pt currently taking every other day Active colesevelam (WELCHOL) 625 mg tabletIndications:T ype 2 Diabetes Mellitus Treatment Adjunct,hyperlipide chino Take 1 tablet (625 mg total) by mouth 2 (two) times a day with meals Active rzmmuae-dpiydkymp-l inc 333-133-5 mg tabletIndications:V itamin Deficiency Prevention Take 1 tablet by mouth every morning Active amLODIPine (NORVASC) 10 mg tablet Take 1 tablet (10 mg total) by mouth daily 90 tablet 2 2022 Active Additional Information Patient taking differently:10 mg oralDaily (early AM), Indications: hypertension, Informant: Self, Reported on 10/18/2024 blood-glucose meter kitIndications:Type 2 diabetes mellitus with hypoglycemia without coma, with long-term current use of insulin (HCC) Use daily or as directed for monitoring of diabetes 1 kit 2023 Active Additional Information Patient taking differently: 1 each miscellaneous 5 times daily PRN, Use daily or as directed for monitoring of diabetes / Back up to Dexcom 7 , Indications: type 2 diabetes mellitus, Informant: Self, Reported on 10/16/2024 onetouch ultrasoft lancetsIndications: Type 2 diabetes mellitus with hypoglycemia without coma, with long-term current use of insulin ([facility]) Check blood sugar 3 times daily 200 each 3 2023 Active Additional Information Patient taking differently: 1 each other As needed, Only used as backup to Dexcom 7, Check blood sugar 4-5 times daily- only uses as backup to Dexcom 7, Indications: type 2 diabetes mellitus, Informant: Self, Reported on 10/16/2024 TRESIBA 100 unit/mL (3 mL) pen for injectionIndication s:Type 2 diabetes mellitus with hypoglycemia without coma, with long-term current use of insulin ([facility]) Inject 0.06 mL (6 Units total) under the skin nightly 15 mL 2 2023 Active Additional Information Patient taking differently:6 Units subcutaneous Nightly,Indications: type 2 diabetes mellitus, Informant: Self, Reported on 10/18/2024 hydrALAZINE (APRESOLINE) 25 mg tabletIndications:h ypertension Take 1 tablet (25 mg total) by mouth 2 (two) times a day 2023 Active ergocalciferol (VITAMIN D) 50,000 unit capsuleIndications: Vitamin D deficiency Take 1 capsule (50,000 Units total) by mouth every 2 (two) weeks 8 capsule 3 2023 Active Additional Information Patient taking differently:50,000 Units oral Every 2 weeks,Indications: Vitamin D Deficiency, Informant: Self, Reported on 10/18/2024 tamsulosin (FLOMAX) 0.4 mg extended release capsuleIndications: BPH associated with nocturia Take 1 capsule (0.4 mg total) by mouth daily 30 capsule 3 2023 Active Additional Information Patient taking differently:0.4 mg oralNightly, Indications: benign prostatic hyperplasia with lower urinary tract sx, Informant: Self, Reported on 10/18/2024 pitavastatin calcium (LIVALO) 4 mg tabletIndications:h yperlipidemia Take 1 tablet (4 mg total) by mouth bariatric surgeon before breakfast 2023 Active cyanocobalamin (Vitamin B-12) 1,000 mcg/mL injectionIndication s:Vitamin B12 deficiency INJECT 1 ML (1,000 MCG TOTAL) INTO THE MUSCLE INSTRUCTED EVERY 30 DAYS 3 mL 3 2024 Active Additional Information Patient taking differently: 1 mL subcutaneous Every 30 days, Pt did not need injection october , Indications: Vitamin B12 Deficiency, Informant: Self, Reported on 10/18/2024 ripretinib (QINLOCK) 50 mg tabletIndications:G IST (gastrointestinal stroma tumor), malignant, colon (HCC),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 Swallow tablets whole, not crush or chew. Pharmacy to dispense in original container. 30 tablet 2 2024 Active Additional Information Patient taking differently:50 mg oralDaily (early AM), Take at approximately the same time each day, with or without food. Swallow tablets whole, not crush or chew. Pharmacy to dispense in original conPer pt will stop taking Monday prior to surgery and hold for 2 weeks after 11/04 surgery, Indications: Gastrointestinal Stromal Tumor, Informant: Self, Reported on 10/18/2024 furosemide (LASIX) 20 mg tabletIndications:h ypertension Take 2 tablets (40 mg total) by mouth every morning 2024 Active docusate sodium (COLACE) 100 mg capsuleIndications: constipation Take 1 capsule (100 mg total) by mouth 2 (two) times a day 2024 Active blood-glucose sensor (Touch of Classiccom G7 Sensor) deviceIndications:t ype 2 diabetes mellitus every 10 days Right arm as of 09/02/2024 Active acetaminophen (TYLENOL) 500 mg tabletIndications:P ain Take 1 tablet (500 mg total) by mouth every 6 (six) hours as needed for pain or headaches Active sevelamer (RENVELA) 800 mg tabletIndications:R enal Osteodystrophy with Hyperphosphatemia Take 2 tablets (1,600 mg total) by mouth 3 (three) times a day with meals Active BD Ultra-Fine Mini Pen Needle 31 gauge x 3/16 needle USE 1 EACH 4 (FOUR) TIMES A DAY BEFORE MEALS AND NIGHTLY 100 each 1 2024 Active sodium bicarbonate 650 mg tabletIndications:m etabolic acidosis Take 1 tablet (650 mg total) by mouth 2 (two) times a day 2024 Active FIASP 100 unit/mL (3 mL) pen for injection Inject 4-12 Units under the skin 3 (three) times a day before meals Dx: E11.65 Max Daily Dose 24 units 15 mL 3 2024 Active Additional Information Patient taking differently:4-12 Units subcutaneous 3 times daily before meals, Dx: E11.65 Max Daily Dose 24 units,Indications: type 2 diabetes mellitus, Informant: Self, Reported on 10/18/2024 BD Ultra-Fine Mini Pen Needle 31 gauge x 3/16 needle 1 each 4 (four) times a day before meals and nightly 400 each 3 10/10 Discontinued FIASP 100 unit/mL (3 mL) pen for injection Inject 4-12 Units under the skin 3 (three) times a day before meals Dx e11.65 max daily dose 24 units 15 mL 3 10/16 Discontinued oxyCODONE (ROXICODONE) 5 mg immediate release tabletIndications:P ain Take 0.5 tablets (2.5 mg total) by mouth every 6 (six) hours as needed for pain 10 tablet 10/18 Discontinued( Therapy completed) Active Problems Problem Noted Date Diagnosed Date End stage renal disease on dialysis 10/14/2024 ESRD (end stage renal disease) on dialysis 08/27 ESRD (end stage renal disease) 07/11/2024 Assessment & Plan (07/14/2024 9:38 AM PIT INSPECTOR): Patient has had progression of CKD to now ESRD needing dialysis initiation given c/f uremia symptoms. Directly admitted per renal. Underwent tunneled dialysis catheter by IR on 07/12 and received HD on 07/12 and 07/13 -Hemodialysis as per Nephrology -Continue home bicarb URI (upper respiratory infection) 07/11/2024 Assessment & Plan (07/12/2024 12:59 PM PIT INSPECTOR): Suspected viral. COVID/flu/RSV neg 07/09. CXR neg 07/10. Was prescribed azithromycin on 07/09 which he took for 3 days. Will not continued further -Supportive care Hypomagnesemia 01/02/2024 CKD (chronic kidney disease) stage 4, GFR 15-29 ml/min 04/16/2023 Assessment & Plan (07/25/2023 10:06 AM PIT INSPECTOR): Chronic problem. Managed by Dr Flores. Has f/u appt at end of the month. Assessment & Plan (04/16/2023 8:48 PM PIT INSPECTOR): Chronic, stable Following with [facility] Acute kidney injury 02/24/2023 (HFpEF) heart failure with preserved ejection fr action 02/24/2023 Assessment & Plan (02/24/2023 3:38 PM CDT): TTE with EF 77% and at least grade 1 diastolic dysfunction (indeterminate on last TTE). Not in exacerbation -Cont home lasix 40mg -strict I&Os, daily weights -F/u with OSH Electromechanical Equipment Assembler Dr. Payotn CAD (coronary artery disease) 02/24/2023 Assessment & Plan (02/24/2023 3:38 PM CDT): S/p prior 5v CABG in 2012 -Cont statin and coreg -Intolerant of PATI-I/ARB due to worsening renal function -ASA held due to procedure -F/u with Cardiology outpatient Hyperlipidemia associated with type 2 diabetes aimee ulloa 02/24/2023 Assessment & Plan (07/11/2024 9:32 PM PIT INSPECTOR): -Continue home welchol -Atorvastatin for home pitavastatin (non-formulary) Assessment & Plan (05/13/2024 9:10 AM PIT INSPECTOR): Continue statin therapy Assessment & Plan (11/16/2023 11:18 AM CDT): Chronic problem. Currently taking Pitavatatin 4mg daily. Last lipid panel: 02/24/23 LDL=76, XI=809. Assessment & Plan (07/25/2023 10:22 AM PIT INSPECTOR): Chronic problem. Currently taking Pitavatatin 4mg daily. Last lipid panel: 02/24/23 LDL=76, NH=230. Assessment & Plan (04/16/2023 8:46 PM PIT INSPECTOR): On Pitavastatin therapy Tolerating well Assessment & Plan (02/24/2023 3:39 PM CDT): Cont statin and colesevelam Type 2 diabetes mellitus wit h stage 4 chronic kidney disease, with long-term current use of insulin 02/24/2023 Assessment & Plan (07/11/2024 9:31 PM PIT INSPECTOR): F/b endo. Home regimen: tresiba 5U QHS, aspart 6-8U TID with meals Pt/ report issues with hypoglycemia lately at home. -Will start with SSI for now; titrate/add scheduled insulin pending glucose trends Assessment & Plan (05/13/2024 9:10 AM PIT INSPECTOR): Chronic, uncontrolled, worsening Hemoglobin A1c 6.8 A1c [...] soon Daily foot care Advise to call [employer] and get the dexcom G 6 sensor [...] return to normal. If you're eating a rabbit fancier lunch--drop the Fiasp to 6 units. Current medications: Tresiba 6 units at bedtime Fiasp 4 units with breakfast & dinner, 8 units with lunch (6 units if rabbit fancier lunch) If blood sugar is between 151-200, add 1 units. If blood sugar is between 201-250, add 2 units. If blood sugar is between 251-300, add 3 units. If blood sugar is between 301-350, add 4 units. UTD on DM eye exam (06/15/23 at [facility]). UTD on labs. Discussed with José Luis [...] infection. Assessment & Plan (07/25/2023 10:02 AM PIT INSPECTOR): Chronic problem. A1c stable at 6.1% but having overnight lows & occasionally lows after LN. Call your supply company to switch from Dexcom G6 to Dexcom G7. Lower tresiba to 6 units nightly. If you notice that your over night readings are too high--start to increase by 1 unit weekly until they return to normal. If you're eating a rabbit fancier lunch--drop the Fiasp to 6 units. Current medications: Tresiba 6 units at bedtime Fiasp 4 units with breakfast & dinner, 8 units with lunch (6 units if rabbit fancier lunch) If blood sugar is between 151-200, add 1 units. If blood sugar is between 201-250, add 2 units. If blood sugar is between 251-300, add 3 units. If blood sugar is between 301-350, add 4 units. DM eye exam 06/2023 at [facility]. Letter sent to get copy of report. [...] infection. Assessment & Plan (04/16/2023 8:47 PM PIT INSPECTOR): Chronic , improving overall hyperglycemia but now [...] 4U TID +SSI; adjust PRN -F/u with OS cae engineer Proteinuria 02/24/2023 Assessment & Plan (02/25/2023 7:46 [...] 11/04/2021 Assessment & Plan (07/12/2024 12:57 PM PIT INSPECTOR): Getting aranesp outpatient -Trend CBC -Transfuse PRN [...] 11/04/2021 Assessment & Plan (07/11/2024 9:30 PM PIT INSPECTOR): -Continue home amlodipine, hydralazine, coreg Assessment & Plan (05/13/2024 9:11 AM PIT INSPECTOR): Chronic, fairly controlled for pt age Continue amlodipine Managed by nephrology Assessment & Plan (11/16/2023 11:18 AM CDT): Chronic problem. Controlled on current Carvedilol 25mg bid, amlodipine 10mg daily, lasix 20mg daily. not taking hydralazine currently Assessment & Plan (07/25/2023 10:05 AM PIT INSPECTOR): Chronic problem. Controlled on current Carvedilol 25mg bid, amlodipine 10mg daily, lasix 20mg daily. 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 Overview (08/14/2020): Added automatically from request for surgery [id number] Assessment & Plan (07/14/2024 9:38 AM PIT INSPECTOR): Pt of Dr Taylor -Holding home ripretinib [...] Encounters Date Type Department Care Team Description 10/16/2024 11:00 AM CDT Office Visit [facility] Oncology [address] [place] [address] Ekaterina Chanel NP Low vitamin B12 level (Primary Dx); GIST (gastrointestinal stroma tumor), malignant, colon (HCC); 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) 10/16/2024 10:30 AM CDT Lab [facility] Cancer [facility] [address] [place] [address] GIST (gastrointestinal stroma tumor), malignant, colon (HCC); 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); Low vitamin B12 level 10/16/2024 8:39 AM CDT - 10/16/2024 11:59 PM CDT Hospital Encounter [facility] [address] [place] [address] Discharge Disposition: Discharge to home or self care 10/16/2024 7:18 AM CDT - 10/16/2024 11:59 PM CDT Hospital Encounter [facility] [address] [place] [address] GIST (gastrointestinal stroma tumor), malignant, colon (HCC); 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) Discharge Disposition: Discharge to home or self care 10/16/2024 Results Follow-Up [facility] [address] [place] [address] Jose Antonio Gamble Lactate dehydrogenase (LD), Comprehensive metabolic panel, CBC with auto differential, Additional followed-up results: 3 10/14/2024 10:30 AM CDT Office Visit [facility] Vascular Surgery [facility] Medical Office Building [address] [place] [phone] Godfrey Villarreal MD ESRD (end stage renal disease) (HCC) (Primary Dx); Encounter for surgical aftercare following surgery on the circulatory system 10/11/2024 11:00 AM CDT Ancillary Procedure [facility] Vascular Lab Vascular Surgery [address] [place] [address] [address] [place], [place] [id number] End stage renal disease (HCC) 10/09/2024 Orders Only [facility] [address] [place] [phone] Jose Antonio Gamble 10/09/2024 Telephone [facility] [address] [place] [address] Matt Nicholson MD 09/20/2024 7:30 AM CDT - 09/20/2024 10:40 AM CDT Surgery [facility] Operating Room [address] [place] [phone] Godfrey Villarreal MD CREATION 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 09/20/2024 7:24 AM CDT Anesthesia Event [facility] Operating Room [address] [place] [phone] Joshua Rodgers MD Gangloff, Kerry Marie, NP 09/20/2024 5:44 AM CDT - 09/20/2024 11:38 AM CDT Hospital Encounter [facility] Operating Room [address] [place] [address] Godfrey Villarreal MD ESRD (end stage renal disease) on dialysis (HCC) (Primary Dx) Discharge Disposition: Discharge to home or self care 09/20/2024 Orders Only [facility] Vascular Surgery [address] [place] [address] Office [address] [place] [address] Godfrey Villarreal MD End stage renal disease (HCC) (Primary Dx) 09/19/2024 Telephone [facility] Vascular Surgery [address] [place] [address] Office [facility] [address] [place] [phone] Godfrey Villarreal MD 08/27/2024 Telephone [facility] Surgery [address] [facility] Floor 1 [place] [address] Godfrey Villarreal MD 08/26/2024 Telephone [facility] Surgery [address] [facility] Floor 1 [place] [address] Godfrey Villarreal MD 08/14/2024 12:00 PM CDT Office Visit [facility] Oncology [address] [place] [phone] Marcella Taylor MD GIST (gastrointestinal stroma tumor), malignant, colon (HCC) (Primary Dx); 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) 08/14/2024 11:30 AM CDT Lab [address] [address] GIST (gastrointestinal stroma tumor), malignant, colon (HCC); 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) 08/12/2024 9:45 AM CDT Office Visit [facility] Vascular Surgery [address] [place] [address] Office [facility] [address] [place] [phone] Godfrey Villarreal MD ESRD (end stage renal disease) (HCC) (Primary Dx) 08/12/2024 8:45 AM CDT Ancillary Procedure [facility] Vascular Lab Vascular Surgery [address] [place] [address] ESRD (end stage renal disease) (HCC) 08/12/2024 Orders Only [facility] Oncology [address] [place] [phone] Jose Antonio Gamble 08/12/2024 Telephone [facility] Oncology [address] [place] [phone] Jose Antonio Gamble from Last 3 Months Immunizations Immunization Administration [...] Sometime before bypass surgery CARDIAC CATHETERIZATION 10/08/2012 AV FISTULA PLACEMENT 09/20/2024 Right Medical History Medical History Date Comments Type 2 diabetes mellitus (HCC) Hypertension Hyperlipidemia Coronary artery disease Peripheral vascular disease Renal insufficiency Dialysis Tue / Thur/ Sat in [place], [place] [facility] (HCC) Anemia Heart failure (HCC) Delayed emergence from general anesthesia slow to wake with most recent AV fistula surgery Family History Medical History Relation Name Comments Colon cancer Father Colon cancer - (Added by TW Conv) Coronary artery disease Father Diabetes Father Hypertension Father Stroke Father Coronary artery disease Mother CAD (coronary artery disease) - (Added by TW Conv) Anesthesia problems Neg Hx Relation Name Status Comments Father Mother Social [...] on file Legal Sex Male 6:14 AM PIT INSPECTOR Gender Identity Not on file Sexual Orientation Not on file Obstetrics History Last Filed Vital Signs Vital Sign Reading Time Taken Comments Blood Pressure 143/60 10/16/2024 10:58 AM CDT Pulse 58 10/16/2024 10:58 AM CDT Temperature 36.5 C (97.7 F) 10/16/2024 10:58 AM CDT Respiratory Rate 16 10/16/2024 10:58 AM CDT Oxygen Saturation 95% 10/16/2024 10:58 AM CDT Inhaled Oxygen Concentration - - Weight 90.7 kg (200 lb) 10/18/2024 8:25 AM CDT Height 177.8 cm (5' 10) 10/18/2024 8:25 AM CDT Body Mass Index 28.7 10/18/2024 8:25 AM CDT Plan of Treatment Upcoming Encounters Date Type Department Care Team (Latest Contact Info) Description 11/04/2024 12:00 PM CDT Hospital Encounter [facility] Operating Room [address] [place] [address] Godfrey Villarreal MD [phone] [place] [address] 11/04/2024 12:00 PM CDT Anesthesia Event [facility] Operating Room [address] [place] [phone] Maryjo Galicia, MARY [address] [place] [address] 11/04/2024 12:00 PM CDT - 11/04/2024 3:05 PM CDT Surgery [facility] Operating Room [address] [place] [address] Godfrey Villarreal MD [id number] [place] [address] CREATION ARTERIOVENOUS FISTULA - ARM-brachialcephalic Scheduled Procedures Name Priority Associated Diagnoses Date/Ti me CREATION ARTERIOVENOUS FISTULA - ARM 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) 11/04/2024 12:00 PM CDT REVISION ARTERIOVENOUS FISTULA - ARM 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) 11/04/2024 12:00 PM CDT Health Maintenance Due Date Last Done Comments Depression Screening 1945 Hepatitis C Screening 1945 DTaP/Tdap/Td Vaccine (1 - Tdap) 1956 Hepatitis B Screening 10/03/1963 Zoster Vaccine (1 of 2) 1964 Well Visit 65+ 2010 Dilated Eye Exam 06/15/2024 06/15/2023, 06/2018, 09/03/2018 Covid-19 Vaccine (8 - Pfizer risk season) 2024 04/03/2024, 02/23/2023, 02/17/2022, Additional history exists Hemoglobin A1C 01/08/2025 07/11/2024, 12/0 02/2024, 11/16/2023, Additional history exists Albumin Creatinine Ratio, Urine 05/13/2025 Foot Exam 05/13/2025 05/13/2024, 04/12/2023 Lipid Panel 05/13/2025 05/13/2024, 02/04, 11/16/2022, Additional history exists Fall Risk Assessment 09/20/2025 09/20/2024 eGFR 10/16/2025 10/16/2024, 08/03, 07/14/2024, Additional history exists Pneumococcal vaccine 65+ Completed 03/09/2020, 0312/2018 Abdominal Aortic Aneurysm (A AA) Screen Completed 12/14/2023, 01/18/2017, 01/18/2017, Additional history exists Influenza Vaccine Completed 04/03/2024, , 03/03/2022, Additional history exists Goals Goal Patient Goal Type Associated Problems Recent Progress Patient-Stated? Author Autogenerat ed Goal Care Plan Autogenerated Problem Keisha Pulliam NP Medical Devices Implanted Type Area Car Unloader Device Identifier Shelf Expiration Date Model / Serial / Lot Stent- 8 Implanted:04/19 by On License Of [facility] (Quantity not on file) Stent Heart Description:1.5 or 3 Nazia N ormal Mode Scan 15 rest 5 [employer] Duraflow Embosafe 15.5fr 28cm Basic 2 Lumen Kit Catheter [id number] - [id number] Implanted:Qty: 1 on 07/12/2024 at [facility] [employer] 08/02/2026 [id number] / / [id number] Procedures Procedure Name Priority Date/Time Associated Diagnosis Comments EGFR Routine 10/16/2024 10:22 AM CDT GIST (gastrointestinal stroma tumor), malignant, 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) DIFFERENTIAL AUTO Routine 10/16/2024 10: 22 AM CDT GIST (gastrointestinal stroma tumor), malignant, 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) CBC WITH AUTO DIFFERENTIAL Routine 10/16/2024 10:22 AM CDT GIST (gastrointestinal stroma tumor), malignant, 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) COMPREHENSIVE METABOLIC PANEL Routine 10/16/2024 10:22 AM CDT GIST (gastrointestinal stroma tumor), malignant, 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) LACTATE DEHYDROGENASE Routine 10/16/2024 10:22 AM CDT GIST (gastrointestinal stroma tumor), malignant, 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) VITAMIN B12 STAT 10/16/2024 10:20 AM CDT GIST (gastrointestinal stroma tumor), malignant, 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) Low vitamin B12 level PET/CT FDG SKULL TO THIGH Schedule Routine, Read Routine (OP Routine) 10/16/2024 9:06 AM CDT GIST (gastrointestinal stroma tumor), malignant, 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) US HEMODIALYSIS ACCESS Schedule Routine, Read Routine (OP Routine) 10/11/2024 11:22 AM CDT End stage renal disease (HCC) POCT GLUCOSE DEVICE Routine 09/20/2024 9 :25 AM CDT POCT GLUCOSE DEVICE Routine 09/20/2024 9 :00 AM CDT FL AN PROCEDURE PLACEHOLDER Routine 09/20/2024 7:59 AM CDT FL AN ELECTIVE ENDOTRACHEAL AIRWAY Routine 09/20/2024 7:59 AM CDT CREATION ARTERIOVENOUS FISTULA - ARM 09/20/2024 7:28 AM CDT ESRD (end stage renal disease) on dialysis (HCC) POC BLOOD GAS AND CHEMISTRIES, ARTERIAL Routine 09/20/2024 7:05 AM CDT EGFR STAT 08/14/2024 11:18 AM CDT GIST [...] renal disease) (HCC) SCAN - LABS 08/08/2024 HEMOGLOBIN A1C Timed 07/11/2024 9:14 PM PIT INSPECTOR LIPID PANEL Routine 05/13/2024 9:16 AM PIT INSPECTOR Type 2 diabetes mellitus with stage 4 chronic kidney disease, with long-term current use of insulin (HCC) Hyperlipidemia associated with type 2 diabetes mellitus (HCC) ALBUMIN CREATININE RATIO, URINE Routine 05/13/2024 9:16 AM PIT INSPECTOR Type 2 diabetes mellitus with stage 4 [...] to Health Maintenance Results * (ABNORMAL) eGFR (10/16/2024 10:22 AM CDT) Pathologist [facility] eGFR 10(L) >=60 mL/min/1. 73 m2 Comment: [...] interpretive data was last reviewed 2021. Blood 10/16/2024 10:2 2 AM CDT 10/16/2024 10:22 AM CDT us Marcella Taylor MD LAB BLOOD ORDERABLES Final Resul t [facility] Department [place] [address] * Differential, auto (10/16/2024 10:22 AM CDT) Pathologist [facility] Neutrophil abs 5.36 1.50 - 6.50 K/cumm Comment:Testing performed by : [facility], [address] [place] [id number] Imm gran abs 0.08 0.00 - 0.10 K/cumm [facility] Lymphocyte abs 1.50 0.80 - 3.30 K/cumm [facility] Monocyte abs 0.64 0.20 - 0.80 K/cumm [facility] Eosinophil abs 0.37 0.00 - 0.50 K/cumm [facility] Basophil abs 0.06 0.00 - 0.10 K/cumm [facility] Neutrophil pct 67.0 % [facility] Comment: Interpretive Data Percent cell count reference ranges are not reported, since discordance with absolute values may lead to misinterpretation of CBC data. Current Interpretive Data was last revised on 2017. Imm gran pct 1.0 % [facility] Comment: Interpretive Data Percent cell count reference ranges are not reported, since discordance with absolute values may lead to misinterpretation of CBC data. Current Interpretive Data was last revised on 2017. Lymphocyte pct 18.7 % [facility] Comment: Interpretive Data Percent cell count reference ranges are not reported, since discordance with absolute values may lead to misinterpretation of CBC data. Current Interpretive Data was last revised on 2017. Monocyte pct 8.0 % [facility] Comment: Interpretive Data Percent cell count reference ranges are not reported, since discordance with absolute values may lead to misinterpretation of CBC data. Current Interpretive Data was last revised on 2017. Eosinophil pct 4.6 % [facility] Comment: Interpretive Data Percent cell count reference ranges are not reported, since discordance with absolute values may lead to misinterpretation of CBC data. Current Interpretive Data was last revised on 2017. Basophil pct 0.7 % [facility] Comment: Interpretive Data Percent cell count reference ranges are not reported, since discordance with absolute values may lead to misinterpretation of CBC data. Current Interpretive Data was last revised on 2017. Blood 10/16/2024 10:2 2 AM CDT 10/16/2024 10:22 AM CDT us Marcella Taylor MD LAB BLOOD ORDERABLES Final Resul t [facility] Department [place] [address] * (ABNORMAL) CBC with auto differential (10/16/2024 10:22 AM CDT) WBC 8.01 3.80 - 9.90 K/cumm Comment:Testing performed by : [address] [address] Hgb 11.2(L) 13.0 - 17.5 g/dL [facility] Comment:Testing performed by : [address] [address] Hct 34.4(L) 38.9 - 50.3 % [facility] Comment:Testing performed by : [facility], [address] [place] [id number] Plt 165 150 - 400 K/cumm [facility] Comment:Testing performed by : [facility], [address] [place] [id number] MPV 10.7 9.1 - 12.3 fL [facility] RBC 3.94(L) 4.30 - 5.80 M/cumm [facility] MCV 87.3 81.3 - 96.4 fL [facility] MCH 28.4 27.1 - 33.3 pg [facility] MCHC 32.6 32.3 - 35.7 g/dL [facility] RDW CV 14.6 11.1 - 14.9 % [facility] RDW SD 46.6 35.7 - 48.1 fL [facility] NRBC abs 0.00 0.00 - 0.01 K/cumm [facility] ANC Prelim 5.36 1.50 - 6.50 K/cumm [facility] Comment: Interpretive Data The rapid ANC is a preliminary automated count and may vary from the final ANC (Neut Abs) reported in the WBC differential that follows. Current interpretive data was last revised 2024. Blood 10/16/2024 10:2 2 AM CDT 10/16/2024 10:22 AM CDT us Marcella Taylor MD LAB BLOOD ORDERABLES Final Resul t [facility] Department [place] [address] * Lactate dehydrogenase (LD) (10/16/2024 10:22 AM CDT) Lactate dehydrogenase (LDH) 245 100 - 250 Units/L Comment:Testing performed by : [facility], [address] [place] [id number] Blood 10/16/2024 10:2 2 AM CDT 10/16/2024 10:22 AM CDT us Marcella Taylor MD LAB BLOOD ORDERABLES Final Resul t [facility] Department [place] [address] * (ABNORMAL) Comprehensive metabolic panel (10/16/2024 10:22 AM CDT) Sodium 138 135 - 145 mmol/L Comment:Testing performed by : [facility], [address] [place] [id number] Potassium, pl 4.6 3.3 - 4.9 mmol/L [facility] Chloride 104 97 - 110 mmol/L [facility] CO2 26 22 - 32 mmol/L [facility] Anion gap 8 2 - 15 mmol/L [facility] BUN 41(H) 6 - 25 mg/dL [facility] Creatinine 5.47(H) 0.80 - 1.30 mg/dL [facility] Glucose 230(H) 70 - 199 mg/dL [facility] Comment: Interpretive Data Fasting glucose >/= 126 [...] interpretive data was last revised 2022. Calcium 8.4(L) 8.5 - 10.3 mg/dL [facility] Bilirubin, total 0.8 0.1 - 1.2 mg/dL [facility] Protein, pl 6.5 6.5 - 8.5 g/dL [facility] Albumin 3.7 3.5 - 5.0 g/dL [facility] Alk phos 84 40 - 130 Units/L [facility] ALT 12 7 - 55 Units/L [facility] AST 19 10 - 50 Units/L [facility] Blood 10/16/2024 10:2 2 AM CDT 10/16/2024 10:22 AM CDT us Marcella Taylor MD LAB BLOOD ORDERABLES Final Resul t Performing Organization Address City/[facility] Co de Phone Number [facility] [place] [address] * Vitamin B12 (10/16/2024 10:20 AM CDT) Vitamin B12 795 230 - 1,250 pg/mL Blood 10/16/2024 10:2 0 AM CDT 10/16/2024 1:49 PM CDT Marcella Taylor MD LAB BLOOD ORDERABLES Final Resul t Performing Organization Address [facility] de Phone Number [facility] Department [place] [address] * PET/CT FDG Skull to Thigh (10/16/2024 9:06 AM CDT) Anatomical Region Laterality Modality N/A Positron Emissio n Tomography (PET) 10/16/2024 11:2 1 AM CDT Impressions 10/16/2024 11:35 AM CDT Interval increase in size/extent and FDG avidity of a few peritoneal/omental soft tissue deposits, concerning for progressive metastatic disease. Dictated by: Ernst Amaral MD The radiology attending physician has personally reviewed this study, and had reviewed and/or edited this written report and agrees with it. Electronically signed by: Juan Pablo Graham M.D. Narrative 10/16/2024 11:35 AM CDT EXAMINATION: TUMOR FDG-PET/CT IMAGING DATE OF STUDY: 10/16/2024 SCANNER: [facility] RADIOPHARMACEUTICAL: 16.31 mCi F-18 Fluorodeoxyglucose (FDG) i.v. 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 Status post recurrence in 2020 informative peritoneal carcinomatosis, status post repeat resection. Currently on Ripretinib. The study is requested for follow-up. Subsequent treatment strategy. TECHNIQUE: The patient's fasting blood glucose level, measured by glucometer before injection of FDG, was 166 mg/dL. After intravenous administration of FDG, noncontrast CT images were obtained for attenuation correction and for fusion with emission PET images to allow for anatomical localization of PET findings. Emission PET images were then obtained. The study was interpreted on the [employer] workstation. The mean liver SUV (reported for vendor quality supervisor purposes) is 2.4. The total scanned area was skull base to proximal thighs. Images of the body were obtained starting 63 minutes after injection of tracer. All reported SUVs are maximum SUVs, unless otherwise specified. COMPARISON: 06/27/2024 DESCRIPTORS OF LESION FDG AVIDITY: Minimal: <= blood pool Mild: > blood pool and <= liver Moderate: > liver and <= 2x SUVmax liver Moderate to marked: >2x SUVmax liver and <= 3x SUVmax liver Marked: > 3x SUVmax liver FINDINGS: Interval increase in size/extent and FDG avidity of a few peritoneal and omental deposits, for example, within the left midline anteriorly, SUV 7.5 (image 212/323). Another right lower quadrant mesenteric deposit measures 2.2 x 2 cm, previously 2.0 x 1.6 with minimal to mild uptake. Mild FDG uptake within the stomach, likely reactive. Additional CT findings: Right port catheter seen with tip in the right atrium. Median sternotomy. Similar-appearing reactive mediastinal lymphadenopathy. Mild bilateral gynecomastia. 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 Cholelithiasis. Left parapelvic renal cyst. Diverticulosis. Degenerative changes within the left sternal clavicular joint. Procedure Note Juan Pablo Graham MD - 10/16/2024 EXAMINATION: TUMOR FDG-PET/CT IMAGING DATE OF STUDY: 10/16/2024 SCANNER: [facility] RADIOPHARMACEUTICAL: 16.31 mCi F-18 Fluorodeoxyglucose (FDG) i.v. 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 Status post recurrence in 2020 informative peritoneal carcinomatosis, status post repeat resection. Currently on Ripretinib. The study is requested for follow-up. Subsequent treatment strategy. TECHNIQUE: The patient's fasting blood glucose level, measured by glucometer before injection of FDG, was 166 mg/dL. After intravenous administration of FDG, noncontrast CT images were obtained for attenuation correction and for fusion with emission PET images to allow for anatomical localization of PET findings. Emission PET images were then obtained. The study was interpreted on the [employer] workstation. The mean liver SUV (reported for vendor quality supervisor purposes) is 2.4. The total scanned area was skull base to proximal thighs. Images of the body were obtained starting 63 minutes after injection of tracer. All reported SUVs are maximum SUVs, unless otherwise specified. COMPARISON: 06/27/2024 DESCRIPTORS OF LESION FDG AVIDITY: Minimal: <= blood pool Mild: > blood pool and <= liver Moderate: > liver and <= 2x SUVmax liver Moderate to marked: >2x SUVmax liver and <= 3x SUVmax liver Marked: > 3x SUVmax liver FINDINGS: Interval increase in size/extent and FDG avidity of a few peritoneal and omental deposits, for example, within the left midline anteriorly, SUV 7.5 (image 212/323). Another right lower quadrant mesenteric deposit measures 2.2 x 2 cm, previously 2.0 x 1.6 with minimal to mild uptake. Mild FDG uptake within the stomach, likely reactive. Additional CT findings: Right port catheter seen with tip in the right atrium. Median sternotomy. Similar-appearing reactive mediastinal lymphadenopathy. Mild bilateral gynecomastia. 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 Cholelithiasis. Left parapelvic renal cyst. Diverticulosis. Degenerative changes within the left sternal clavicular joint. IMPRESSION: Interval increase in size/extent and FDG avidity of a few peritoneal/omental soft tissue deposits, concerning for progressive metastatic disease. Dictated by: Ernst Amaral MD The radiology attending physician has personally reviewed this study, and had reviewed and/or edited this written report and agrees with it. Electronically signed by: Juan Pablo Graham M.D. Marcella Taylor MD IMG PET PROCEDURES Final Result * US Hemodialysis Access (10/11/2024 11:22 AM CDT) Anatomical Region Laterality Modality Vascular N/A Ultrasound 10/11/2024 10:4 9 AM CDT Narrative 10/11/2024 1:44 PM CDT [facility] - Department of Vascular Surgery, Vascular Laboratory [address] [place] [id number] Dialysis Access Fistula/Graft Duplex Report Patient Name: JOSÉ LUIS GAMBLE : 1945 (79y ) Gender: M Study Date: 10/11/2024 10:49:25 AM Nursing Executive: GONZALO Location: [facility] Order Provider: GODFREY VILLARREAL Quality: Adequate Ref Provider: GODFREY VILLARREAL PROCEDURES: Vascular Report: Right Upper Extremity Arterial-Venous Fistula Duplex Exam. Radial artery to Cephalic vein. INDICATIONS: N18.6 End stage renal disease. MEASUREMENTS: Diameter/Depth Value Units Velocities Value Units Rt Anastomosis Diameter 0.17 cm Rt Inflow Artery 98.80 cm/s Rt Anastomosis Depth 0.96 cm Inflow Artery Volume Flow 313 cc/min Rt Outflow Distal Forearm Diameter 0.44 cm Rt Anastomosis PSV 599.00 cm/s Rt Outflow Distal Forearm Depth 0.68 cm Rt Vein Dist Forearm PSV 229.00 cm/s Rt Outflow Mid Forearm Diameter 0.49 cm Rt Vein Mid Forearm PSV 149.00 cm/s Rt Outflow Mid Forearm Depth 0.42 cm Rt Vein Prox Forearm PSV 157.00 cm/s Rt Outflow Proximal Forearm Diameter 0.45 cm Rt Antecubital PSV 63.70 cm/s Rt Outflow Proximal Forearm Depth 0.41 cm Rt Vein Dist Arm PSV 74.60 cm/s Rt Outflow A/C Diameter 0.52 cm Rt Vein Mid Arm PSV 92.70 cm/s Rt Outflow A/C Depth 0.33 cm Rt Vein Prox Arm PSV 88.90 cm/s Rt Outflow Distal Arm Diameter 0.46 cm Rt Deep Vein [place] 58.40 cm/s Rt Outflow Distal Arm Depth 0.27 cm Rt Axillary Vein PSV 58.20 cm/s Rt Outflow Mid Arm Diameter 0.38 cm Rt Subclavian Vein 26.60 cm/s Rt Outflow Mid Arm Depth 0.56 cm Rt Outflow Vein (Graft) Volume Flow Average 310 cc/min Rt Outflow Proximal Arm Diameter 0.43 cm Rt Outflow Proximal Arm Depth 0.71 cm Rt Deep Vein [place] Diameter 0.43 cm Rt Deep Vein [place] Depth 2.10 cm Rt Inflow Artery Diameter 0.53 cm Diameter/Depth Value Units Velocities Value Units FINDINGS: Performing Nursing Executive: Jayda Dunn RVT. [place] Arterial Inflow Normal: No evidence of arterial stenosis in the inflow vessel. Anastomosis: The fistula anastomosis is patent. Venous Outflow: No evidence of stenosis noted in the venous outflow vessel. The subclavian vein is patent. The axillary vein is patent. Fistula/Graft Findings: branches noted at the distal forearm level. Volume Flow: Three volume flow measurements are performed at the outflow vein (graft); an averaged volume flow is 310 cc/min. Inflow artery volume flow is also obtained, measuring 313cc/min. CONCLUSIONS: 1. Patent hemodialysis fistula with no evidence of significant narrowing. 2. Three volume flow measurements are performed at the outflow vein (graft); an averaged volume flow is 310 cc/min. Inflow artery volume flow is also obtained, measuring 313cc/min. HISTORY: s/p on 09/20/2024 Creation of right radiocephalic fistula. End-stage renal disease. PREVIOUS STUDIES: [facility] study on 08/12/2024. DISCLAIMER: The study images and the final report [...] above. Electronically Signed By: Josias Cox MD [facility] [phone] 10/11/2024 1:30:12 PM CDT Procedure Note Josias Cox MD - 10/11/2024 [facility] - Department of Vascular Surgery,Vascular Laboratory [address] [place] [address] Dialysis Access Fistula/Graft Duplex Report Patient Name: JOSÉ LUIS GAMBLE : 1945 (79y ) Gender: M Study Date: 10/11/2024 10:49:25 AM Nursing Executive: GONZALO Location: [facility] Order Provider: GODFREY VILLARREAL Quality: Adequate Ref Provider: GODFREY VILLARREAL PROCEDURES: Vascular Report: Right Upper Extremity Arterial-Venous Fistula DuplexExam. Radial artery to Cephalic vein. INDICATIONS: N18.6 End stage renal disease. MEASUREMENTS: Diameter/Depth Value Units Velocities Value Units Rt Anastomosis Diameter 0.17 cm Rt Inflow Artery 98.80 cm/s Rt Anastomosis Depth 0.96 cm Inflow Artery Volume Flow 313 cc/min Rt Outflow Distal Forearm Diameter 0.44 cm Rt Anastomosis PSV 599.00cm/s Rt Outflow Distal Forearm Depth 0.68 cm Rt Vein Dist Forearm PSV 229.00cm/s Rt Outflow Mid Forearm Diameter 0.49 cm Rt Vein Mid Forearm PSV 149.00cm/s Rt Outflow Mid Forearm Depth 0.42 cm Rt Vein Prox Forearm PSV 157.00cm/s Rt Outflow Proximal Forearm Diameter 0.45 cm Rt Antecubital PSV 63.70cm/s Rt Outflow Proximal Forearm Depth 0.41 cm Rt Vein Dist Arm PSV 74.60cm/s Rt Outflow A/C Diameter 0.52 cm Rt Vein Mid Arm PSV 92.70 cm/s Rt Outflow A/C Depth 0.33 cm Rt Vein Prox Arm PSV 88.90 cm/s Rt Outflow Distal Arm Diameter 0.46 cm Rt Deep Vein [place] 58.40cm/s Rt Outflow Distal Arm Depth 0.27 cm Rt Axillary Vein PSV 58.20 cm/s Rt Outflow Mid Arm Diameter 0.38 cm Rt Subclavian Vein 26.60 cm/s Rt Outflow Mid Arm Depth 0.56 cm Rt Outflow Vein (Graft) Volume FlowAverage 310 cc/min Rt Outflow Proximal Arm Diameter 0.43 cm Rt Outflow Proximal Arm Depth 0.71 cm Rt Deep Vein [place] Diameter 0.43 cm Rt Deep Vein [place] Depth 2.10 cm Rt Inflow Artery Diameter 0.53 cm Diameter/Depth Value Units Velocities Value Units FINDINGS: Performing Nursing Executive: Jayda Dunn RVT. [place] Arterial Inflow Normal: No evidence of arterial stenosis in theinflow vessel. Anastomosis: The fistula anastomosis is patent. Venous Outflow: No evidence of stenosis noted in the venous outflowvessel. The subclavian vein is patent. The axillary vein is patent. Fistula/Graft Findings: branches noted at the distal forearm level. Volume Flow: Three volume flow measurements are performed at the outflowvein (graft); an averaged volume flow is 310 cc/min. Inflow artery volume flow is also obtained, measuring 313cc/min. CONCLUSIONS: 1. Patent hemodialysis fistula with no evidence of significantnarrowing. 2. Three volume flow measurements are performed at the outflow vein(graft); an averaged volume flow is 310 cc/min. Inflow artery volume flow is also obtained, measuring 313cc/min. HISTORY: s/p on 09/20/2024 Creation of right radiocephalic fistula. End-stage renaldisease. PREVIOUS STUDIES: [facility] study on 08/12/2024. DISCLAIMER: The study images and the final report [...] above. Electronically Signed By: Josias Cox MD [facility] [phone] 10/11/2024 1:30:12 PM CDT Godfrey Villarreal MD IMG US PROCEDURES Final R esult * POCT glucose (09/20/2024 9:25 AM CDT) Glucose, POC 145 70 - 199 mg/dL Blood 09/20/2024 9:25 AM CDT 09/20/2024 9:25 AM CDT Godfrey Villarreal MD LAB POCT ORDERABLES - DEV ICE Final Result Performing Organization Address City/[facility] Co de Phone Number [facility] [place] [place] [address] * POCT glucose (09/20/2024 9:00 AM CDT) Glucose, POC 133 70 - 199 mg/dL Blood 09/20/2024 9:00 AM CDT 09/20/2024 9:00 AM CDT Godfrey Villarreal MD LAB POCT ORDERABLES - DEV ICE Final Result Performing Organization Address [facility] Co de Phone Number PITA [facility] [place] [address] * FL AN ELECTIVE ENDOTRACHEAL AIRWAY, FL AN PROCEDURE PLACEHOLDER (09/20/2024 7:59 AM CDT) Narrative Caridad Hernandez CRNA - 09/20/2024 7:59 AM CDT Caridad Hernandez CRNA 09/20/2024 8:00 AM Airway Patient location: OR Urgency: elective Date/time: 09/20/2024 7:36 AM Indications for airway management: anesthesia Difficult airway: no Staff: Supervising provider: Joshua Rodgers MD Placed by: TWISTER FRAME TENDER: Caridad Hernandez CRNA Emergent airway documentation: Risks and benefits discussed: yes Consent obtained: yes Consent given by: patient Airway prep: Preoxygenated: yes Patient position: sniffing Mask difficulty assessment: 0 - not attempted Spontaneous ventilation during airway: absent Sedation level during airway: GA Final airway details: Final airway type: endotracheal airway Tube type: ETT ETT size: 7.5 mm Cuffed: yes Technique used for successful ETT placement: video laryngoscopy Devices/Methods used in placement: stylet Insertion site: oral Blade type: Jewell Video blade type: Amor Blade size: 4 Cormack-Lehane (video): grade I - full view of glottis Cuff volume: 8 mL Cuff inflated with: air ETT to lips: 23 cm Placement verified by: auscultation and CO2 detection Airway secured with: silk tape Number of attempts: 1 Joshua Rodgers MD ANESTHESIA ORDERABLES Final Resu lt * (ABNORMAL) POC Blood Gas and Chemistries, Arterial - (09/20/2024 7:05 AM CDT) Na, POC 140 135 - 145 mmol/L K POC 3.2(L) 3.3 - 4.9 mmol/L [facility] Comment: Interpretive Data Not all point of care methods assess for hemolysis. Confirm with instrument and retest K+ if not consistent with clinical signs and symptoms. Current Interpretive Data was last revised on 2023. Glucose, POC 165 70 - 199 mg/dL [facility] Hct, POC 33.0(L) 41.4 - 51.6 % [facility] Total Hb, POC 11.0(L) 13.8 - 17.2 g/dL [facility] Blood 09/20/2024 7:05 AM CDT 09/20/2024 7:05 AM CDT us Godfrey Villarreal MD LAB POCT ORDERABLES - DEV ICE Final Result Performing Organization Address City/[facility]/ZIP Co de Phone Number [facility] [place] [address] * (ABNORMAL) eGFR (08/14/2024 11:18 AM CDT) [...] AM CDT 08/14/2024 11:18 AM CDT us Marcelal Taylor MD LAB BLOOD ORDERABLES Final Resul t [facility] Department [place] [address] * (ABNORMAL) Differential, auto (08/14/2024 11:18 AM CDT) Neutrophil abs 7.7(H) 1.5 - 6.5 K/cumm Comment:Testing performed by : [facility], [address] [facility] [address] Imm gran abs 0.1 0.0 - 0.1 K/cumm [facility] Lymphocyte abs 2.0 0.8 - 3.3 K/cumm [facility] Monocyte abs 0.8 0.2 - 0.8 K/cumm [facility] Eosinophil abs 0.4 0.0 - 0.5 K/cumm [facility] Basophil abs 0.1 0.0 - 0.1 K/cumm [facility] Neutrophil pct 69.7 % [facility] Comment: Interpretive Data Percent cell count reference ranges are not reported, since discordance with absolute values may lead to misinterpretation of CBC data. Current Interpretive Data was last revised on 2017. Imm gran pct 0.5 % [facility] Comment: Interpretive Data Percent cell count reference ranges are not reported, since discordance with absolute values may lead to misinterpretation of CBC data. Current Interpretive Data was last revised on 2017. Lymphocyte pct 17.9 % [facility] Comment: Interpretive Data Percent cell count reference ranges are not reported, since discordance with absolute values may lead to misinterpretation of CBC data. Current Interpretive Data was last revised on 2017. Monocyte pct 7.6 % [facility] Comment: Interpretive Data Percent cell count reference ranges are not reported, since discordance with absolute values may lead to misinterpretation of CBC data. Current Interpretive Data was last revised on 2017. Eosinophil pct 3.6 % [facility] Comment: Interpretive Data Percent cell count reference ranges are not reported, since discordance with absolute values may lead to misinterpretation of CBC data. Current Interpretive Data was last revised on 2017. Basophil pct 0.7 % [facility] Comment: Interpretive Data Percent cell count reference ranges are not reported, since discordance with absolute values may lead to misinterpretation of CBC data. Current Interpretive Data was last revised on 2017. Blood 08/14/2024 11:1 8 AM CDT 08/14/2024 11:18 AM CDT us Marcella Taylor MD LAB BLOOD ORDERABLES Final Resul t [facility] Department [place] [address] * (ABNORMAL) CBC with auto differential (08/14/2024 11:18 AM CDT) [facility] Signature WBC 11.0(H) 3.8 - 9.9 K/cumm Comment:Testing performed by : [address] [address] Hgb 10.3(L) 13.0 - 17.5 g/dL [facility] Comment:Testing performed by : [address] [address] Hct 32.1(L) 38.9 - 50.3 % [facility] Comment:Testing performed by : [address] [address] Plt 187 150 - 400 K/cumm [facility] Comment:Testing performed by : [address] [address] MPV 9.6 9.1 - 12.3 fL [facility] RBC 3.88(L) 4.30 - 5.80 M/cumm [facility] MCV 82.7 81.3 - 96.4 fL [facility] MCH 26.5(L) 27.1 - 33.3 pg [facility] MCHC 32.1(L) 32.3 - 35.7 g/dL [facility] RDW CV 17.1(H) 11.1 - 14.9 % [facility] RDW SD 51.6(H) 35.7 - 48.1 fL [facility] NRBC abs 0.00 0.00 - 0.01 K/cumm [facility] Blood 08/14/2024 11:1 8 AM CDT 08/14/2024 11:18 AM CDT us Marcella Taylor MD LAB BLOOD ORDERABLES Final Resul t Performing Organization Address City/[facility]/ZIP Co de Phone Number [facility] Department [place] [address] * (ABNORMAL) Lactate dehydrogenase (LD) (08/14/2024 11:18 AM CDT) Lactate dehydrogenase (LDH) 343(H) 100 - 250 Units/L Comment:Testing performed by : [facility], [address] [place] [address] Blood 08/14/2024 11:1 8 AM CDT 08/14/2024 11:18 AM CDT us Marcella Taylor MD LAB BLOOD ORDERABLES Final Resul t [facility] Department [place] [address] * (ABNORMAL) Comprehensive metabolic panel (08/14/2024 11:18 AM CDT) Pathologist [facility] Sodium 142 135 - 145 mmol/L Comment:Testing performed by : [facility], [address] [place] [address] Potassium, pl 4.7 3.3 - 4.9 mmol/L [facility] Chloride 107 97 - 110 mmol/L [facility] CO2 27 22 - 32 mmol/L [facility] Anion gap 8 2 - 15 mmol/L [facility] BUN 41(H) 6 - 25 mg/dL [facility] Creatinine 5.63(H) 0.80 - 1.30 mg/dL [facility] Glucose 170 70 - 199 mg/dL [facility] Comment: Interpretive Data Fasting glucose >/= 126 [...] 2022. Calcium 8.0(L) 8.5 - 10.3 mg/dL [facility] Bilirubin, total 0.5 0.1 - 1.2 mg/dL [facility] Protein, pl 6.5 6.5 - 8.5 g/dL [facility] Albumin 3.6 3.5 - 5.0 g/dL [facility] Alk phos 83 40 - 130 Units/L [facility] ALT 11 7 - 55 Units/L [facility] AST 22 10 - 50 Units/L [facility] Blood 08/14/2024 11:1 8 AM CDT 08/14/2024 11:18 AM CDT us Marcella Taylor MD LAB BLOOD ORDERABLES Final Resul t [facility] Department of Laboratories [place] [phone] * US Vein Mapping Fistula Access, Bilateral (08/12/2024 9:16 AM CDT) Anatomical Region Laterality Modality Vascular Bilateral Ultrasound 08/12/2024 7:00 AM CDT Narrative 08/12/2024 12:47 PM CDT [facility] - Department of Vascular Surgery, Vascular Laboratory [address] [place] [address] Upper Extremity Vein Mapping Report Patient Name: JOSÉ LUIS GAMBLE : 1945 (78y 10m) Study Date: 08/12/2024 7:00:58 AM Gender: M Nursing Executive: GONZALO Location: [facility] Provider: GODFREY VILLARREAL Quality: Adequate Order Provider: [...] Value Units Left Value Units FINDINGS: Performing Nursing Executive: Jayda Dunn RVT. Bilateral: Venous Doppler [...] above. Electronically Signed By: Josias Cox MD [facility] [phone] 08/12/2024 12:46:53 PM CDT Procedure Note Josias Cox MD - 08/12/2024 [facility] - Department of Vascular Surgery,Vascular Laboratory [address] [place] [address] Upper Extremity Vein Mapping Report Patient Name: JOSÉ LUIS GAMBLE : 1945 (78y 10m) Study Date: 08/12/2024 7:00:58 AM Gender: M Nursing Executive: GONZALO Location: [facility] Provider: GODFREY VILLARREAL Quality: Adequate Order Provider: [...] Value Units Left Value Units FINDINGS: Performing Nursing Executive: Jayda Dunn RVT. Bilateral: Venous Doppler [...] above. Electronically Signed By: Josias Cox MD [facility] [phone] 08/12/2024 12:46:53 PM CDT us Gdofrey Villarreal MD IMG US PROCEDURES Final R esult * SCAN - LABS (08/08/2024) us Provider Scanning Final Result * (ABNORMAL) Hemoglobin A1c (07/11/2024 9:14 PM PIT INSPECTOR) Hgb A1C 6.3(H) 4.0 - 5.6 % Estimated Average Glucose 134 mg/dL [facility] Comment: The ADA recommends reporting an estimated Average Glucose (eAG) with all Hemoglobin A1c results using the equation derived from a study of 507 normal and diabetic adults. Minority populations were underrepresented and children were not included. (Diabetes Care 2020; 43(S1): S66-S76). The eAG is not equivalent to a fasting glucose. Blood 07/11/2024 9:14 PM PIT INSPECTOR 07/11/2024 9:39 PM PIT INSPECTOR Narrative [facility] - 07/12/2024 8:23 AM PIT INSPECTOR Reflex us Rex Reid MD LAB BLOOD ORDERABLES Final Resul t [facility] Department [place] [address] * (ABNORMAL) Albumin Creatinine Ratio, Urine (05/13/2024 9:16 AM PIT INSPECTOR) Albumin Ur 3,688.8 mg/L Comment: Interpretive Data No reference range established. Current interpretive data was last revised 2018. Creatinine Ur 59.2 mg/dL [facility] Comment: Interpretive Data No reference range established. Current interpretive data was last revised 2018. Albumin Creatinine Ratio, Ur 6,231(H) 1 - 29 mg/g [facility] Urine 05/13/2024 9:16 AM PIT INSPECTOR 05/13/2024 2:55 PM PIT INSPECTOR Matt Kendrick MD LAB URINE ORDERABLE S Final Result [facility] [address] Department [place] [address] * (ABNORMAL) Lipid panel (05/13/2024 9:16 AM PIT INSPECTOR) Cholesterol 128 30 - 199 mg/dL Comment: [...] NCEP Expert Panel. Circulation 2004;110:227 3. Ovidio Yang et al. JOVI Cardiol. 2020 October 03;5(5):540-548. [...] ratio 3 [facility] Blood 05/13/2024 9:16 AM PIT INSPECTOR 05/13/2024 2:55 PM PIT INSPECTOR Matt Kendrick MD LAB BLOOD ORDERABLE S Final Result [facility] [address] [address] [place] [address] * CT abdomen pelvis without contrast (12/14/2023 [...] Lenny Redd M.D., Ph.D Marcella Taylor MD IMG CT PROCEDURES Final Result * DIABETES EYE EXAM (06/15/2023) 06/15/2023 Historical Provider HEALTH MAINTENANCE Edited Result - Final from Last 3 Months or Most Recently Relevant to Health Maintenance Additional Health Concerns Active Problems Noted Date Diagnosed Date Autogenerated Problem 10/29/2024 Insurance MEDICARE [place] [address] [employer] SUPPLEMENT MEDICARE [place] [address] [facility] SUPPLEMENT MEDICARE [facility] GENERIC Advance Directives For more information, please contact: [phone] * Full Code (Latest Code Status on [...] 1:19 PM 07/30/2020 4:54 AM Care Teams Page Designer Relationship Specialty [place] [address] [address] PCP - General Family Practice 04/26/22 Marcella Taylor MD [address] [place] [address] Medical Oncologist/Stock Hanger Medical Oncology 08/08/20 Godfrey Villarreal MD [address] [facility] [address] [place] [address] (work) Surgeon Vascular Surgery 09/20/24
--- OUTSIDE RECORDS SUMMARY | 2024-10-29 16:00 | XMS_ITS | Encounter Summary ---
Author Organization [facility] Address [address] [facility] [address] [place] [address] Phone Care Team Providers Care Delivery Specialist Name Role Phone Marcella Taylor MD Unavailable Anselmo Sampson MD Primary Care Provider [phone] Godfrey Villarreal MD Unavailable [phone] Encounter Details Date Type Department Care Team [...] on file Legal Sex Male 6:14 AM ANESTHESIOLOGY FELLOW Gender Identity Not on file Sexual Orientation Not on file documented as of this encounter Plan of Treatment Upcoming Encounters Date Type Department Care Team (Latest Contact Info) Description 11/04/2024 12:00 PM CDT Hospital Encounter [facility] Operating Room [address] [place] [address] Godfrey Villarreal MD [address] [facility] [address]06 [place] [address] 11/04/2024 12:00 PM CDT Anesthesia Event [facility] Operating [address] [place] [address] Maryjo Galicia, MANAGER UTILITY [address] [place] [address] 11/04/2024 12:00 PM CDT - 11/04/2024 3:05 PM CDT Surgery [facility] Operating [address] [place] [phone] Godfrey Villarreal MD [address] [facility] [address] [place] [address] CREATION ARTERIOVENOUS FISTULA - ARM-brachialcephalic Scheduled Procedures Name Priority Associated Diagnoses Date/Ti me CREATION ARTERIOVENOUS FISTULA - ARM 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) 11/04/2024 12:00 PM CDT REVISION ARTERIOVENOUS FISTULA - ARM End stage renal disease on dialysis ([facility]) 11/04/2024 12:00 PM CDT documented as of this encounter Procedures Procedure Name Priority Date/Time Associated Diagnosis Comments SCAN - LABS 11/28/2022 documented in this encounter Results * SCAN - LABS (11/28/2022) Provider Scanning Final Result documented in this encounter Visit Diagnoses Not on filedocumented in this encounter Additional Health Concerns Infection Onset Date Last Indicated Resolved Time COVID: Suspected 10/09/2023 10/09/2023 10/09/2023 2:41 PM CDT COVID: Suspected 07/09/2024 07/09/2024 07/09/2024 11:36 AM ANESTHESIOLOGY FELLOW COVID: Suspected 07/09/2024 07/09/2024 07/09/2024 4:05 PM ANESTHESIOLOGY FELLOW documented as of this encounter Care Teams Delivery Specialist Relationship Specialty Start [place] [address] [address] [place] [phone] PCP - General Family Practice 04/26/22 Marcella Taylor MD [address] [place] [address] [address] [place] [address] Medical Oncologist/Landscape Horticulture Instructor Medical Oncology 08/08/20 Godfrey Villarreal MD [address] [facility] [address] [place] [address] Surgeon Vascular Surgery 09/20/24 documented as of this encounter
--- OUTSIDE RECORDS SUMMARY | 2024-10-29 16:00 | XMS_ITS | Encounter Summary ---
Author Organization [facility] Address [address] [facility] [address] [place] [address] Phone Care Team Providers Care Nuclear Medical Tech Name Role Phone Marcella Taylor MD Unavailable Anselmo Sampson MD Primary Care Provider [phone] Godfrey Villarreal MD Unavailable [phone] Encounter Details Date Type Department Care Team [...] on file Legal Sex Male 6:14 AM ALUMINUM POOL INSTALLER Gender Identity Not on file Sexual Orientation Not on file documented as of this encounter Plan of Treatment Upcoming Encounters Date Type Department Care Team (Latest Contact Info) Description 11/04/2024 12:00 PM CDT Hospital Encounter [facility] Operating Room [address] [place] [address] Godfrey Villarreal MD [address] [facility] [address] [place] [address] 11/04/2024 12:00 PM CDT Anesthesia Event [facility] Operating Room [address] [place] [address] Maryjo Galicia, DIMMER BOARD OPERATOR [address] [place] [address] 11/04/2024 12:00 PM CDT - 11/04/2024 3:05 PM CDT Surgery [facility] Operating Room [address] [place] [phone] Godfrey Villarreal MD [address] [facility] [address] [place] [address] CREATION ARTERIOVENOUS FISTULA - ARM-brachialcephalic Scheduled Procedures Name Priority Associated Diagnoses Date/Ti me CREATION ARTERIOVENOUS FISTULA - ARM 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) 11/04/2024 12:00 PM CDT REVISION ARTERIOVENOUS FISTULA - ARM End stage renal disease on dialysis ([facility]) 11/04/2024 12:00 PM CDT documented as of this encounter Procedures Procedure Name Priority Date/Time Associated Diagnosis Comments SCAN - LABS 11/08/2022 documented in this encounter Results * SCAN - LABS (11/08/2022) Provider Scanning Final Result documented in this encounter Visit Diagnoses Not on filedocumented in this encounter Additional Health Concerns Infection Onset Date Last Indicated Resolved Time COVID: Suspected 10/09/2023 10/09/2023 10/09/2023 2:41 PM CDT COVID: Suspected 07/09/2024 07/09/2024 07/09/2024 11:36 AM ALUMINUM POOL INSTALLER COVID: Suspected 07/09/2024 07/09/2024 07/09/2024 4:05 PM ALUMINUM POOL INSTALLER documented as of this encounter Care Teams Nuclear Medical Tech Relationship Specialty Start [place] [address] [address] [place] [phone] PCP - General Family Practice 04/26/22 Marcella Taylor MD [address] [place] [address] [address] [place] [address] Medical Oncologist/Sugar Mixer Medical Oncology 08/08/20 Godfrey Villarreal MD [address] [facility] [address] [place] [address] Surgeon Vascular Surgery 09/20/24 documented as of this encounter
--- OUTSIDE RECORDS SUMMARY | 2024-10-29 16:00 | XMS_ITS | Referral Summary ---
Author Organization [facility] Address [address] [place] [address] Care Team Providers Care Tailing Hand Name Role Phone Marcella Taylor MD Unavailable Anselmo Sampson MD Primary Care Provider [phone] Godfrey Villarreal MD Unavailable [phone] Encounters Date Type Department Care Team Description 10/16/2024 Results Follow-Up [facility] Oncology [address] [place] [phone] Jose Antonio Gamble Lactate dehydrogenase (LD), Comprehensive metabolic panel, CBC with auto differential, Additional followed-up results: 3 10/16/2024 11:00 AM CDT Office Visit [facility] Oncology [address] [place] [phone] Ekaterina Chanel NP Low vitamin B12 level (Primary Dx); GIST (gastrointestinal stroma tumor), malignant, colon (HCC); 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) 10/16/2024 10:30 AM CDT Lab [address] [address] GIST (gastrointestinal stroma tumor), malignant, colon (HCC); 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); Low vitamin B12 level 10/16/2024 8:39 AM CDT - 10/16/2024 11:59 PM CDT Hospital Encounter [facility] Imaging [address] [place] [address] Discharge Disposition: Discharge to home or self care 10/16/2024 7:18 AM CDT - 10/16/2024 11:59 PM CDT Hospital Encounter [facility] Imaging [address] [place] [address] GIST (gastrointestinal stroma tumor), malignant, colon (HCC); 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) Discharge Disposition: Discharge to home or self care 10/14/2024 10:30 AM CDT Office Visit [facility] Vascular Surgery [facility] Building [address] [place] [phone] Godfrey Villarreal MD ESRD (end stage renal disease) (HCC) (Primary Dx); Encounter for surgical aftercare following surgery on the circulatory system 10/11/2024 11:00 AM CDT Ancillary Procedure [facility] Vascular Lab Vascular Surgery [address] [place] [address] [address] [facility] [place] [address] End stage renal disease (HCC) 10/09/2024 Orders Only [facility] Oncology [address] [place] [address] Jose Antonio Gamble 10/09/2024 Telephone [facility] [address] [place] [phone] Matt Nicholson MD 09/20/2024 Orders Only [facility] Vascular Surgery [address] [place] [address] [address] [place] [phone] Godfrey Villarreal MD End stage renal disease (HCC) (Primary Dx) 09/20/2024 7:30 AM CDT - 09/20/2024 10:40 AM CDT Surgery [facility] Operating Room [address] [place] [address] Godfrey Villarreal MD CREATION 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 09/20/2024 7:24 AM CDT Anesthesia Event [facility] Operating Room [address] [place] [address] Joshua Rodgers MD Gangloff, Kerry Marie, NP 09/20/2024 5:44 AM CDT - 09/20/2024 11:38 AM CDT Hospital Encounter [facility] Operating Room [address] [place] [address] Godfrey Villarreal MD ESRD (end stage renal disease) on dialysis (HCC) (Primary Dx) Discharge Disposition: Discharge to home or self care 09/19/2024 Telephone [facility] Vascular Surgery [address] [place] [address] Medical Office Building 3 [address] [place] [address] Godfrey Villarreal MD 08/27/2024 Telephone [facility] Surgery [address] [facility] Floor 1 [place] [address] Godfrey Villarreal MD 08/26/2024 Telephone [facility] Surgery [address] [place] [address] Floor 1 [place] [address] Godfrey Villarreal MD 08/14/2024 11:30 AM CDT Lab [address] [address] GIST (gastrointestinal stroma tumor), malignant, colon (HCC); 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 08/12/2024 9:45 AM CDT Office Visit [facility] Vascular Surgery [address] [facility] Medical Office Building 3 [address] [place] [phone] Godfrey Villarreal MD ESRD (end stage renal disease) (HCC) (Primary Dx) 08/12/2024 8:45 AM CDT Ancillary Procedure [facility] Vascular Lab Vascular Surgery [facility] [address] [place] [address] ESRD (end stage renal disease) (HCC) from Last 3 Months Allergies No known [...] (two) times a day with meals Active whxlydj-fvnqbaxrp-q inc 333-133-5 mg tabletIndications:V itamin Deficiency Prevention [...] coma, with long-term current use of insulin ([facility]) Use daily or as directed [...] 1 tablet (4 mg total) by 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 Directly admitted per renal. Underwent tunneled dialysis catheter by IR on 07/12 and received HD on 07/12 and 07/13 -Hemodialysis as per Nephrology -Continue home bicarb URI (upper respiratory infection) 07/11/2024 Assessment & Plan (07/12/2024 12:59 PM THREAD WINDER): Suspected viral. COVID/flu/RSV neg 07/09. CXR neg 07/10. Was prescribed azithromycin on 07/09 which he took for 3 days. Will not continued further -Supportive care Hypomagnesemia 01/02/2024 CKD (chronic kidney disease) stage 4, GFR 15-29 ml/min 04/16/2023 Assessment & Plan (07/25/2023 10:06 AM THREAD WINDER): Chronic problem. Managed by Dr Flores. Has f/u appt at end of the month. Assessment & Plan (04/16/2023 8:48 PM THREAD WINDER): Chronic, stable Following with Cia Agent Acute kidney injury 02/24/2023 (HFpEF) heart failure with preserved ejection fr action 02/24/2023 Assessment & Plan (02/24/2023 3:38 PM CDT): TTE with EF 77% and at least grade 1 diastolic dysfunction (indeterminate on last TTE). Not in exacerbation -Cont home lasix 40mg -strict I&Os, daily weights -F/u with OSH Intermodal Dispatcher Dr. Payton CAD (coronary artery disease) 02/24/2023 Assessment & Plan (02/24/2023 3:38 PM CDT): S/p prior 5v CABG in 2012 -Cont statin and coreg -Intolerant of PATI-I/ARB due to worsening renal function -ASA held due to procedure -F/u with Cardiology outpatient Hyperlipidemia associated with type 2 diabetes aimee ulloa 02/24/2023 Assessment & Plan (07/11/2024 9:32 PM THREAD WINDER): -Continue home welchol -Atorvastatin for home pitavastatin (non-formulary) Assessment & Plan (05/13/2024 9:10 AM THREAD WINDER): Continue statin therapy Assessment & Plan (11/16/2023 11:18 AM CDT): Chronic problem. Currently taking Pitavatatin 4mg daily. Last lipid panel: 02/24/23 LDL=76, UH=037. Assessment & Plan (07/25/2023 10:22 AM THREAD WINDER): Chronic problem. Currently taking Pitavatatin 4mg daily. Last lipid panel: 02/24/23 LDL=76, TT=672. Assessment & Plan (04/16/2023 8:46 PM THREAD WINDER): On Pitavastatin therapy Tolerating well Assessment & Plan (02/24/2023 3:39 PM CDT): Cont statin and colesevelam Type 2 diabetes mellitus wit h stage 4 chronic kidney disease, with long-term current use of insulin 02/24/2023 Assessment & Plan (07/11/2024 9:31 PM THREAD WINDER): F/b endo. Home regimen: tresiba 5U QHS, aspart 6-8U TID with meals Pt/ report issues with hypoglycemia lately at home. -Will start with SSI for now; titrate/add scheduled insulin pending glucose trends Assessment & Plan (05/13/2024 9:10 AM THREAD WINDER): Chronic, uncontrolled, worsening Hemoglobin A1c 6.8 A1c [...] soon Daily foot care Advise to call farm[employer] and get the dexcom G 6 sensor to switch to G7 Check labs today Follow-up in 6 months Assessment & Plan (11/16/2023 11:17 AM CDT): Chronic problem. A1c stable at 6.1% but having overnight lows & occasionally lows after LN. Call your [email or web address] to switch from Dexcom G6 to Dexcom G7. Lower tresiba to 6 units nightly. If you notice that your over night readings are too high--start to increase by 1 unit weekly until they return to normal. If you're eating a acupressurist lunch--drop the Fiasp to 6 units. Current medications: Tresiba 6 units at bedtime Fiasp 4 units with breakfast & dinner, 8 units with lunch (6 units if acupressurist lunch) If blood sugar is between 151-200, add 1 units. If blood sugar is between 201-250, add 2 units. If blood sugar is between 251-300, add 3 units. If blood sugar is between 301-350, add 4 units. UTD on DM eye exam (06/15/23 at [facility]). UTD on labs. Discussed with [...] infection. Assessment & Plan (07/25/2023 10:02 AM THREAD WINDER): Chronic problem. A1c stable at 6.1% but having overnight lows & occasionally lows after LN. Call your supply company to switch from Dexcom G6 to Dexcom G7. Lower tresiba to 6 units nightly. If you notice that your over night readings are too high--start to increase by 1 unit weekly until they return to normal. If you're eating a acupressurist lunch--drop the Fiasp to 6 units. Current medications: Tresiba 6 units at bedtime Fiasp 4 units with breakfast & dinner, 8 units with lunch (6 units if acupressurist lunch) If blood sugar is between 151-200, add 1 units. If blood sugar is between 201-250, add 2 units. If blood sugar is between 251-300, add 3 units. If blood sugar is between 301-350, add 4 units. DM eye exam 06/2023 at [facility]. Letter sent to get copy [...] infection. Assessment & Plan (04/16/2023 8:47 PM THREAD WINDER): Chronic , improving overall hyperglycemia but now [...] TID +SSI; adjust PRN -F/u with OSH systems security consultant Proteinuria 02/24/2023 Assessment & Plan (02/25/2023 7:46 [...] 11/04/2021 Assessment & Plan (07/12/2024 12:57 PM THREAD WINDER): Getting aranesp outpatient -Trend CBC -Transfuse PRN [...] 11/04/2021 Assessment & Plan (07/11/2024 9:30 PM THREAD WINDER): -Continue home amlodipine, hydralazine, coreg Assessment & Plan (05/13/2024 9:11 AM THREAD WINDER): Chronic, fairly controlled for pt age Continue amlodipine Managed by nephrology Assessment & Plan (11/16/2023 11:18 AM CDT): Chronic problem. Controlled on current Carvedilol 25mg bid, amlodipine 10mg daily, lasix 20mg daily. not taking hydralazine currently Assessment & Plan (07/25/2023 10:05 AM THREAD WINDER): Chronic problem. Controlled on current Carvedilol 25mg bid, amlodipine 10mg daily, lasix 20mg daily. 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 021 GIST (gastrointestinal stroma tumor), malignant, colon 08/14/2020 Overview (08/14/2020): Added automatically from request for surgery [id number] Assessment & Plan (07/14/2024 9:38 AM THREAD WINDER): Pt of Dr Taylor -Holding home ripretinib [...] on file Legal Sex Male 6:14 AM THREAD WINDER Gender Identity Not on file Sexual Orientation [...] Description 11/04/2024 12:00 PM CDT Hospital Encounter [facility] Operating Room [address] [place] [address] Godfrey Villarreal MD [address] [facility] [address]06 [place] [address] 11/04/2024 12:00 PM CDT Anesthesia Event [facility] Operating Room [address] [place] [address] Maryjo Galicia, MANAGER ASSET MANAGEMENT [address] [place] [address] 11/04/2024 12:00 PM CDT - 11/04/2024 3:05 PM CDT Surgery [facility] Operating Room [address] [place] [address] Godfrey Villarreal MD [address] [facility] 8108[address]10-06 [place] [address] CREATION ARTERIOVENOUS FISTULA - ARM-brachialcephalic Scheduled Procedures Name Priority Associated Diagnoses Date/Ti me CREATION ARTERIOVENOUS FISTULA - ARM 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) 11/04/2024 12:00 PM CDT REVISION ARTERIOVENOUS FISTULA - ARM 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) 11/04/2024 12:00 PM CDT Goals Goal Patient Goal Type Associated Problems Recent Progress Patient-Stated? Author Autogenerat ed Goal Care Plan Autogenerated Problem No Keisha Chamberlain, MARY Medical Devices Implanted Type Area Wind Up Operator Device Identifier Shelf Expiration Date Model / Serial / Lot Stent- 8 Implanted:04/19 by [facility] - Carol jacob MD (Quantity not on file) Stent Heart Description:1.5 or 3 Nazia N ormal Mode Scan 15 rest 5 [employer] Duraflow Embosafe 15.5fr 28cm Basic 2 Lumen Kit Catheter [id number] - [id number] Implanted:Qty: 1 on 07/12/2024 at [facility] [employer] Database 08/02/2026 [id number] 25 / / [id number] Procedures Procedure Name Priority Date/Time Associated Diagnosis [...] DEVICE Routine 09/20/2024 9 :00 AM CDT DE AN PROCEDURE PLACEHOLDER Routine 09/20/2024 7:59 AM CDT DE AN ELECTIVE ENDOTRACHEAL AIRWAY Routine 09/20/2024 7:59 [...] 08/08/2024 HEMOGLOBIN A1C Timed 07/11/2024 9:14 PM THREAD WINDER LIPID PANEL Routine 05/13/2024 9:16 AM THREAD WINDER Type 2 diabetes mellitus with stage 4 chronic kidney disease, with long-term current use of insulin (HCC) Hyperlipidemia associated with type 2 diabetes mellitus (HCC) ALBUMIN CREATININE RATIO, URINE Routine 05/13/2024 9:16 AM THREAD WINDER Type 2 diabetes mellitus with stage 4 [...] * (ABNORMAL) eGFR (10/16/2024 10:22 AM CDT) eGFR 10(L) >=60 mL/min/1. 73 [...] MD LAB BLOOD ORDERABLES Final Resul t [facility] Department [place] [address] * Differential, auto (10/16/2024 10:22 AM CDT) Neutrophil abs 5.36 1.50 - 6.50 K/cumm Comment:Testing performed by : [facility], [address] [place] [address] Imm gran abs 0.08 0.00 - 0.10 K/cumm [facility] Lymphocyte abs 1.50 0.80 - 3.30 K/cumm [facility] Monocyte abs 0.64 0.20 - 0.80 K/cumm [facility] Eosinophil abs 0.37 0.00 - 0.50 K/cumm [facility] Basophil abs 0.06 0.00 - 0.10 K/cumm [facility] Neutrophil pct 67.0 % [facility] Comment: Interpretive Data Percent cell count reference ranges are not reported, since discordance with absolute values may lead to misinterpretation of CBC data. Current Interpretive Data was last revised on 2017. Imm gran pct 1.0 % [facility] Comment: Interpretive Data Percent cell count reference ranges are not reported, since discordance with absolute values may lead to misinterpretation of CBC data. Current Interpretive Data was last revised on 2017. Lymphocyte pct 18.7 % [facility] Comment: Interpretive Data Percent cell count reference ranges are not reported, since discordance with absolute values may lead to misinterpretation of CBC data. Current Interpretive Data was last revised on 2017. Monocyte pct 8.0 % [facility] Comment: Interpretive Data Percent cell count reference ranges are not reported, since discordance with absolute values may lead to misinterpretation of CBC data. Current Interpretive Data was last revised on 2017. Eosinophil pct 4.6 % [facility] Comment: Interpretive Data Percent cell count reference ranges are not reported, since discordance with absolute values may lead to misinterpretation of CBC data. Current Interpretive Data was last revised on 2017. Basophil pct 0.7 % [facility] Comment: Interpretive Data Percent cell count reference ranges are not reported, since discordance with absolute values may lead to misinterpretation of CBC data. Current Interpretive Data was last revised on 2017. Blood 10/16/2024 10:2 2 AM CDT 10/16/2024 10:22 AM CDT us Marcella Taylor MD LAB BLOOD ORDERABLES Final Resul t [facility] Department [place] [address] * (ABNORMAL) CBC with auto differential (10/16/2024 10:22 AM CDT) WBC 8.01 3.80 - 9.90 K/cumm Comment:Testing performed by : [address] [address] Hgb 11.2(L) 13.0 - 17.5 g/dL [facility] Comment:Testing performed by : [address] [address] Hct 34.4(L) 38.9 - 50.3 % [facility] Comment:Testing performed by : [address] [address] Plt 165 150 - 400 K/cumm [facility] Comment:Testing performed by : [address] [address] MPV 10.7 9.1 - 12.3 fL [facility] RBC 3.94(L) 4.30 - 5.80 M/cumm [facility] MCV 87.3 81.3 - 96.[address] [facility] MCH 28.4 27.1 - 33.[address] [facility] MCHC 32.6 32.3 - 35.7 g/dL [facility] RDW CV 14.6 11.1 - 14.9 % [facility] RDW SD 46.6 35.7 - 48.[address] [facility] NRBC abs 0.00 0.00 - 0.01 K/cumm [facility] ANC Prelim 5.36 1.50 - 6.50 K/cumm [facility] Comment: Interpretive Data The rapid ANC is a preliminary automated count and may vary from the final ANC (Neut Abs) reported in the WBC differential that follows. Current interpretive data was last revised 2024. Blood 10/16/2024 10:2 2 AM CDT 10/16/2024 10:22 AM CDT Marcella Taylor MD LAB BLOOD ORDERABLES Final Resul t Performing Organization Address [facility] Co de Phone Number [facility] [place] [address] * Lactate dehydrogenase (LD) (10/16/2024 10:22 AM CDT) Lactate dehydrogenase (LDH) 245 100 - 250 Units/L Comment:Testing performed by : [facility], [address] [place] [address] Blood 10/16/2024 10:2 2 AM CDT 10/16/2024 10:22 AM CDT Marcella Taylor MD LAB BLOOD ORDERAB[place] [address] * (ABNORMAL) Comprehensive metabolic panel (10/16/2024 10:22 AM CDT) Sodium 138 135 - 145 mmol/L Comment:Testing performed by : [facility], [address] [facility] [address] Potassium, pl 4.6 3.3 - 4.9 mmol/L [facility] Chloride 104 97 - 110 mmol/L [facility] CO2 26 22 - 32 mmol/L [facility] Anion gap 8 2 - 15 mmol/L [facility] BUN 41(H) 6 - 25 mg/dL [facility] Creatinine 5.47(H) 0.80 - 1.30 mg/dL [facility] Glucose 230(H) 70 - 199 mg/dL [facility] Comment: Interpretive Data Fasting glucose >/= [...] 2022. Calcium 8.4(L) 8.5 - 10.3 mg/dL [facility] Bilirubin, total 0.8 0.1 - 1.2 mg/dL [facility] Protein, pl 6.5 6.5 - 8.5 g/dL [facility] Albumin 3.7 3.5 - 5.0 g/dL [facility] Alk phos 84 40 - 130 Units/L [facility] ALT 12 7 - 55 Units/L [facility] AST 19 10 - 50 Units/L [facility] Blood 10/16/2024 10:2 2 AM CDT 10/16/2024 10:22 AM CDT us Marcella Taylor MD LAB BLOOD ORDERABLES Final Resul t [facility] Department [place] [address] * Vitamin B12 (10/16/2024 10:20 AM CDT) Vitamin B12 795 230 - 1,250 pg/mL Blood 10/16/2024 10:2 0 AM CDT 10/16/2024 1:49 PM CDT us Marcella Taylor MD LAB BLOOD ORDERABLES Final Resul t [facility] Department [place] [address] * PET/CT FDG Skull to Thigh (10/16/2024 [...] obtained. The study was interpreted on the [employer] workstation. The mean liver SUV (reported for quality improvement specialist purposes) is 2.4. The total scanned area [...] obtained. The study was interpreted on the [employer] workstation. The mean liver SUV (reported for quality improvement specialist purposes) is 2.4. The total scanned area [...] AM CDT Narrative 10/11/2024 1:44 PM CDT [facility] - Department of Vascular Surgery, Vascular Laboratory [address] [place] [address] Dialysis Access Fistula/Graft Duplex Report Patient Name: JOSÉ LUIS GAMBLE : 1945 (79y ) Gender: M Study Date: 10/11/2024 10:49:25 AM Merchandise Presentation Associate: GONZALO Location: [facility] Provider: GODFREY VILLARREAL Quality: Adequate Ref Provider: [...] Arm Diameter 0.46 cm Rt Deep Vein [place] 58.40 cm/s Rt Outflow Distal Arm Depth 0.27 cm Rt Axillary Vein PSV 58.20 cm/s Rt Outflow Mid Arm Diameter 0.38 cm Rt Subclavian Vein 26.60 cm/s Rt Outflow Mid Arm Depth 0.56 cm Rt Outflow Vein (Graft) Volume Flow Average 310 cc/min Rt Outflow Proximal Arm Diameter 0.43 cm Rt Outflow Proximal Arm Depth 0.71 cm Rt Deep Vein [place] Diameter 0.43 cm Rt Deep Vein [place] Depth 2.10 cm Rt Inflow Artery Diameter 0.53 cm Diameter/Depth Value Units Velocities Value Units FINDINGS: Performing Merchandise Presentation Associate: Jayda Dunn RVT. [place] Arterial Inflow Normal: No evidence of arterial [...] above. Electronically Signed By: Josias Cox MD [facility] [phone] 10/11/2024 1:30:12 PM CDT Procedure Note Josias Cox MD - 10/11/2024 [facility] - Department of Vascular Surgery,Vascular Laboratory [address] [place] [id number] Dialysis Access Fistula/Graft Duplex Report Patient Name: JOSÉ LUIS GAMBLE : 1945 (79y ) Gender: M Study Date: 10/11/2024 10:49:25 AM Merchandise Presentation Associate: GONZALO Location: [facility] Order Provider: GODFREY VILLARREAL Quality: Adequate Ref [...] Arm Diameter 0.46 cm Rt Deep Vein [place] 58.40cm/s Rt Outflow Distal Arm Depth 0.27 cm Rt Axillary Vein PSV 58.20 cm/s Rt Outflow Mid Arm Diameter 0.38 cm Rt Subclavian Vein 26.60 cm/s Rt Outflow Mid Arm Depth 0.56 cm Rt Outflow Vein (Graft) Volume FlowAverage 310 cc/min Rt Outflow Proximal Arm Diameter 0.43 cm Rt Outflow Proximal Arm Depth 0.71 cm Rt Deep Vein [place] Diameter 0.43 cm Rt Deep Vein [place] Depth 2.10 cm Rt Inflow Artery Diameter 0.53 cm Diameter/Depth Value Units Velocities Value Units FINDINGS: Performing Merchandise Presentation Associate: Jayda Dunn RVT. [place] Arterial Inflow Normal: No evidence of arterial [...] above. Electronically Signed By: Josias Cox MD [facility] [phone] 10/11/2024 1:30:12 PM CDT Godfrey Villarreal MD IMG US PROCEDURES Final R esult * POCT glucose (09/20/2024 9:25 AM CDT) Glucose, POC 145 70 - 199 mg/dL Blood 09/20/2024 9:25 AM CDT 09/20/2024 9:25 AM CDT Godfrey Villarreal MD LAB POCT ORDERABLES - DEV ICE Final Result Performing Organization Address [facility] [facility] Co de Phone Number [facility] Department [place] [address] * POCT glucose (09/20/2024 9:00 AM CDT) Glucose, POC 133 70 - 199 mg/dL Blood 09/20/2024 9:00 AM CDT 09/20/2024 9:00 AM CDT Godfrey Villarreal MD LAB POCT ORDERABLES - DEV ICE Final Result Performing Organization Address [facility] de Phone Number [facility] Department [place] [address] * DE AN ELECTIVE ENDOTRACHEAL AIRWAY, DE AN PROCEDURE PLACEHOLDER (09/20/2024 7:59 AM CDT) Narrative Caridad Hernandez CRNA - 09/20/2024 7:59 AM CDT Caridad Hernandez CRNA 09/20/2024 8:00 AM Airway Patient location: OR Urgency: elective Date/time: 09/20/2024 7:36 AM Indications for airway management: anesthesia Difficult airway: no Staff: Supervising provider: Joshua Rodgers MD Placed by: CUSTOMER SUPPORT REPRESENTATIVE: Caridad Hernandez CRNA Emergent airway documentation: Risks [...] with: silk tape Number of attempts: 1 us Joshua Rodgers MD ANESTHESIA ORDERABLES Final Resu lt * (ABNORMAL) POC Blood Gas and Chemistries, Arterial - (09/20/2024 7:05 AM CDT) Na, POC 140 135 - 145 mmol/L K POC 3.2(L) 3.3 - 4.9 mmol/L [facility] Comment: Interpretive Data Not all point of care methods assess for hemolysis. Confirm with instrument and retest K+ if not consistent with clinical signs and symptoms. Current Interpretive Data was last revised on 2023. Glucose, POC 165 70 - 199 mg/dL [facility] Hct, POC 33.0(L) 41.4 - 51.6 % [facility] Total Hb, POC 11.0(L) 13.8 - 17.2 g/dL [facility] Blood 09/20/2024 7:05 AM CDT 09/20/2024 7:05 AM CDT us Godfrey Villarreal MD LAB POCT ORDERABLES - DEV ICE Final Result [facility] Department [place] [address] * (ABNORMAL) eGFR (08/14/2024 11:18 AM CDT) [...] MD LAB BLOOD ORDERABLES Final Resul t [facility] Department [place] [address] * (ABNORMAL) Differential, auto (08/14/2024 11:18 AM CDT) Pathologist [facility] Neutrophil abs 7.7(H) 1.5 - 6.5 K/cumm Comment:Testing performed by : [facility], [address] [place] [address] Imm gran abs 0.1 0.0 - 0.1 K/cumm [facility] Lymphocyte abs 2.0 0.8 - 3.3 K/cumm [facility] Monocyte abs 0.8 0.2 - 0.8 K/cumm [facility] Eosinophil abs 0.4 0.0 - 0.5 K/cumm [facility] Basophil abs 0.1 0.0 - 0.1 K/cumm [facility] Neutrophil pct 69.7 % [facility] Comment: Interpretive Data Percent cell count reference ranges are not reported, since discordance with absolute values may lead to misinterpretation of CBC data. Current Interpretive Data was last revised on 2017. Imm gran pct 0.5 % [facility] Comment: Interpretive Data Percent cell count reference ranges are not reported, since discordance with absolute values may lead to misinterpretation of CBC data. Current Interpretive Data was last revised on 2017. Lymphocyte pct 17.9 % [facility] Comment: Interpretive Data Percent cell count reference ranges are not reported, since discordance with absolute values may lead to misinterpretation of CBC data. Current Interpretive Data was last revised on 2017. Monocyte pct 7.6 % [facility] Comment: Interpretive Data Percent cell count reference ranges are not reported, since discordance with absolute values may lead to misinterpretation of CBC data. Current Interpretive Data was last revised on 2017. Eosinophil pct 3.6 % [facility] Comment: Interpretive Data Percent cell count reference ranges are not reported, since discordance with absolute values may lead to misinterpretation of CBC data. Current Interpretive Data was last revised on 2017. Basophil pct 0.7 % [facility] Comment: Interpretive Data Percent cell count reference ranges are not reported, since discordance with absolute values may lead to misinterpretation of CBC data. Current Interpretive Data was last revised on 2017. Blood 08/14/2024 11:1 8 AM CDT 08/14/2024 11:18 AM CDT us Marcella Taylor MD LAB BLOOD ORDERABLES Final Resul t [facility] Department [place] [address] * (ABNORMAL) CBC with auto differential (08/14/2024 11:18 AM CDT) WBC 11.0(H) 3.8 - 9.9 K/cumm Comment:Testing performed by : [address] [address] Hgb 10.3(L) 13.0 - 17.5 g/dL [facility] Comment:Testing performed by : [address] [address] Hct 32.1(L) 38.9 - 50.3 % [facility] Comment:Testing performed by : [address] [address] Plt 187 150 - 400 K/cumm [facility] Comment:Testing performed by : [address] [address] MPV 9.6 9.1 - 12.[address] [facility] RBC 3.88(L) 4.30 - 5.80 M/cumm [facility] MCV 82.7 81.3 - 96.[address] [facility] MCH 26.5(L) 27.1 - 33.[address] [facility] MCHC 32.1(L) 32.3 - 35.7 g/dL [facility] RDW CV 17.1(H) 11.1 - 14.9 % [facility] RDW SD 51.6(H) 35.7 - 48.[address] [facility] NRBC abs 0.00 0.00 - 0.01 K/cumm [facility] Blood 08/14/2024 11:1 8 AM CDT 08/14/2024 11:18 AM CDT us Marcella Taylor MD LAB BLOOD ORDERABLES Final Resul t [facility] Department [place] [address] * (ABNORMAL) Lactate dehydrogenase (LD) (08/14/2024 11:18 AM CDT) Lactate dehydrogenase (LDH) 343(H) 100 - 250 Units/L Comment:Testing performed by : [address] [address] Blood 08/14/2024 11:1 8 AM CDT 08/14/2024 11:18 AM CDT us Marcella Taylor MD LAB BLOOD ORDERABLES Final Resul t [facility] Department [place] [address] * (ABNORMAL) Comprehensive metabolic panel (08/14/2024 11:18 AM CDT) Sodium 142 135 - 145 mmol/L Comment:Testing performed by : [facility], [address] [place] [address] Potassium, pl 4.7 3.3 - 4.9 mmol/L [facility] Chloride 107 97 - 110 mmol/L [facility] CO2 27 22 - 32 mmol/L [facility] Anion gap 8 2 - 15 mmol/L [facility] BUN 41(H) 6 - 25 mg/dL [facility] Creatinine 5.63(H) 0.80 - 1.30 mg/dL [facility] Glucose 170 70 - 199 mg/dL [facility] Comment: Interpretive Data Fasting glucose >/= [...] 2022. Calcium 8.0(L) 8.5 - 10.3 mg/dL [facility] Bilirubin, total 0.5 0.1 - 1.2 mg/dL [facility] Protein, pl 6.5 6.5 - 8.5 g/dL [facility] Albumin 3.6 3.5 - 5.0 g/dL [facility] Alk phos 83 40 - 130 Units/L [facility] ALT 11 7 - 55 Units/L [facility] AST 22 10 - 50 Units/L [facility] Blood 08/14/2024 11:1 8 AM CDT 08/14/2024 11:18 AM CDT us Marcella Taylor MD LAB BLOOD ORDERABLES Final Resul t [facility] Department of Laboratories [place] [id number] * US Vein Mapping Fistula Access, Bilateral (08/12/2024 9:16 AM CDT) Anatomical Region Laterality Modality Vascular Bilateral Ultrasound 08/12/2024 7:00 AM CDT Narrative 08/12/2024 12:47 PM CDT [facility] - Department of Vascular Surgery, Vascular Laboratory [address] [place] [address] Upper Extremity Vein Mapping Report Patient Name: JOSÉ LUIS GAMBLE : 1945 (78y 10m) Study Date: 08/12/2024 7:00:58 AM Gender: M Merchandise Presentation Associate: GONZALO Location: [facility] Provider: GODFREY VILLARREAL Quality: Adequate [...] Value Units Left Value Units FINDINGS: Performing Merchandise Presentation Associate: Jayda Dunn RVT. Bilateral: Venous Doppler signals [...] above. Electronically Signed By: Josias Cox MD [facility] [phone] 08/12/2024 12:46:53 PM CDT Procedure Note Josias Cox MD - 08/12/2024 [facility] - Department of Vascular Surgery,Vascular Laboratory [address] [place] [address] Upper Extremity Vein Mapping Report Patient Name: JOSÉ LUIS GAMBLE : 1945 (78y 10m) Study Date: 08/12/2024 7:00:58 AM Gender: M Merchandise Presentation Associate: GONZALO Location: [facility] Provider: GODFREY VILLARREAL Quality: Adequate [...] Value Units Left Value Units FINDINGS: Performing Merchandise Presentation Associate: Jayda Dunn RVT. Bilateral: Venous Doppler signals [...] above. Electronically Signed By: Josias Cox MD [facility] [phone] 08/12/2024 12:46:53 PM CDT us Godfrey Villarreal MD IMG US PROCEDURES Final R esult * SCAN - LABS (08/08/2024) us Provider Scanning Final Result * (ABNORMAL) Hemoglobin A1c (07/11/2024 9:14 PM THREAD WINDER) Hgb A1C 6.3(H) 4.0 - 5.6 % Estimated Average Glucose 134 mg/dL [facility] Comment: The ADA recommends reporting an estimated Average Glucose (eAG) with all Hemoglobin A1c results using the equation derived from a study of 507 normal and diabetic adults. Minority populations were underrepresented and children were not included. (Diabetes Care 2020; 43(S1): S66-S76). The eAG is not equivalent to a fasting glucose. Blood 07/11/2024 9:14 PM THREAD WINDER 07/11/2024 9:39 PM THREAD WINDER Narrative [facility] - 07/12/2024 8:23 AM THREAD WINDER Reflex us Rex Reid MD LAB BLOOD ORDERABLES Final Resul t [facility] Department [place] [address] * (ABNORMAL) Albumin Creatinine Ratio, Urine (05/13/2024 9:16 AM THREAD WINDER) Albumin Ur 3,688.8 mg/L Comment: Interpretive Data No reference range established. Current interpretive data was last revised 2018. Creatinine Ur 59.2 mg/dL [facility] Comment: Interpretive Data No reference range established. Current interpretive data was last revised 2018. Albumin Creatinine Ratio, Ur 6,231(H) 1 - 29 mg/g [facility] Urine 05/13/2024 9:16 AM THREAD WINDER 05/13/2024 2:55 PM THREAD WINDER us Matt Kendrick MD LAB URINE ORDERABLE S Final Result [facility] [address] Department [place] [address] * (ABNORMAL) Lipid panel (05/13/2024 9:16 AM THREAD WINDER) Cholesterol 128 30 - 199 mg/dL Comment: [...] 3. Ovidio Yang et al. JOVI Cardiol. 2019October 03;5(5):540-548. doi: 10.1001/[email or web address].2020.0013 Current Interpretive Data was [...] revised on 2018. Chol/HDL ratio 3 [facility] Blood 05/13/2024 9:16 AM THREAD WINDER 05/13/2024 2:55 PM THREAD WINDER us Matt Kendrick MD LAB BLOOD ORDERABLE S Final Result [facility] [address] Department [place] [address] * CT abdomen pelvis without contrast (12/14/2023 [...] Diagnosed Date Autogenerated Problem 10/29/2024 [place] [address] [place] [address] [address] [facility] [address] [id number] MEDICARE [place] [id number] [address] [facility] SUPPLEMENT MEDICARE COMMERCIAL GENERIC Advance Directives For more information, please contact: [phone] * Full Code (Latest Code Status on [...] 1:19 PM 07/30/2020 4:54 AM Care Teams Tailing Hand Relationship Specialty [place] [address] [address] PCP - General Family Practice 04/26/22 Marcella Taylor MD [address] [facility] [address] [place] [address] Medical Oncologist/Art Tracer Medical Oncology 08/08/20 Godfrey Villarreal MD [address] [facility] [id number] [place] [address] Surgeon Vascular Surgery 09/20/24
--- OUTSIDE RECORDS SUMMARY | 2024-10-29 16:00 | XMS_ITS | Continuity of Care Document ---
Author Organization [facility] Address [address] [place] [address] [place] [address] Phone Care Team Providers Care Wrapper Stripper Name Role Phone Gerard Mo MD Unavailable Unavailable Allergies, Adverse Reactions, Alerts Substance Reaction Status Criticality No Known Allergies Active No Inform ation Medications Medication Instructions Dosage Effective Dates (start - stop) Status Comments Flomax 0.4 mg capsule take 1 capsule by oral route every day 1/2 hour following the same meal each day 0.4 MG - Active losartan 50 mg tablet take 1 tablet by o ral route every day 50 MG - Active metformin 500 mg tablet [...] Diagnoses Date Provider Providers Copied on Encounter [facility], [address], [place], [place], [id number], [place] tel:[phone] [facility] No Information [address], [place], [place], [address] , [place]. tel:[phone] OFFICE/OUTPA TIENT VISIT, EST [facility], [address], [place], [place], [address], [place] tel:[phone] [facility] suture1 (chief complaint) Pain in left hand [address], [place], [place], [address] , [place]. tel:[phone] Referring Provider: Jada [address] [facility] [address], [place], [place], [address]. tel:[phone] OFFICE/OUTPA TIENT VISIT, [facility], [address], [place], [place], [address], [place] tel:[phone] [facility] diarrhea (chief complaint) diarrhea1 (chief complaint) DiarrheaEssential (primary) hypertensionBPH w/ lower urinary tract symptomsEncounter for general adult medical exam w abnormal findingsAnemiaMalig nant neoplasm of small intestine, unspecifiedType 2 diabetes mellitus without complications [address], [place], [place], [address] , [place]. tel: [phone] Referring Provider: J[address], [place], [place], [address]. tel:[phone] OFFICE/OUTPA TIENT VISIT, [facility], [address], [place], [place], [address], [place] tel:[phone] [facility] Anemia1 (chief complaint) DM (chief complaint) anxiety1 (chief complaint) insomnia1 (chief complaint) AnemiaType 2 diabetes mellitus without complicationsSleep disorder [address], [place], [place], [address] , [place]. tel:[phone] Referring Provider: Gerard Mo, [address], [place], [place], [address]. tel:[phone] OFFICE/OUTPA TIENT VISIT, [facility], [address] [place], [place], [address], [place] tel:[phone] [facility] colon CA (chief complaint) HTN (chief complaint) DM (chief complaint) Malignant neoplasm of ascending colonType 2 diabetes mellitus without complicationsEssent ial (primary) hypertensionAnemia 0-201 [address], [place], [place], [address] , [place]. tel:[phone] Referring Provider: Gerard Mo, [address] [facility] [address], [place], [place], [address]. 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 Pt is on metformin and [...] decides to go to see oncologist at [facility] Pt will start chemo soon. Pt already seen the physician at [facility] DM Pt has DM. Pt ta kes [...] just had colectomy two weeks ago at [facility]. Pt is seeing surgeon now. Pt [...] general adult medical exam w abnormal findings Special diet education Related t o Body mass index (BMI) 33.0-33.9, adult Prescribed Diet Educ ation/Lifestyle Education Regarding Diet Related to Dietary Surveillance and Counseling Prescribed Activity and Exercise Education Related to Dietary Surveillance and Counseling Assessments Type Assessment Date No Information
--- OUTSIDE RECORDS SUMMARY | 2024-10-29 16:00 | XMS_ITS | Continuity of Care Document ---
Author Name [facility] Organization [facility] Care Team Providers Care Senior Linux Systems Administrator Name Role Phone [facility] Unavailable Unavailable Problems Combined list of problems from Department of [facility] and [facility] Affairs facilities. It does not include entries that were removed or entered in error. Problem Status Onset Date Problem Type Date of Resolution Comments Source Diagnosis: ICD-10-CM H90.3 Sensorineural hearing loss, bilateral Active Diagnosis [facility] Immunizations Combined list of available immunizations from the Department of [facility] and [facility] facilities. Immunization Series Date Given Administered By Site Reaction Lot Number CVX Code Drug Supervisor Intelligence Analyst Status Comments Source COVID-19 (PFIZER), MRNA, LNP-S, PF, 30 MCG/0.3 ML DOSE 2 2020 208 complet ed PFR; [id number]; 1 [facility] COVID-19 (PFIZER), MRNA, LNP-S, PF, 30 MCG/0.3 ML DOSE 1 2020 208 complet ed PFR; [id number]; 1 [facility] Encounters Combined list of: 1) Encounters from Department of Veterans Affairs facilities going backup to the last 18 months, not all VA inpatient encounters are included; 2) Encounters from the Department of [facility] facilities going backup to 280 months. Location Location Details Encounter Type Encounter Number Reason For Visit Attending Provider ADM Date DC Date Status Disposition Source [facility] HEARING AID REPAIR/MOD IFYING [id number] Diagnos is: ICD-10- CM H90.3 Sensori neural hearing loss, MICAELA Saba 12/03 [facility] Outpatient Encounter [id number] 06/20 [facility]
--- OUTSIDE RECORDS SUMMARY | 2024-10-29 16:00 | XMS_ITS | Clinical Summary ---
Author Organization [facility] Address [address], [facility] [place] [address] Phone Care Team Providers Care Engineering Drawings Checker Name Role Phone Gerard Mo Primary Care Provider Allergies No known active allergies Medications citalopram [...] mouth 3 times daily as needed. Active Dumont-3 Fatty Acids (FISH OIL PO) Take by [...] on file Legal Sex Male 2:48 PM GROUP MANAGING DIRECTOR Gender Identity Not on file Sexual Orientation Not on file Last Filed Vital Signs Vital Sign Reading Time Taken Comments Blood Pressure 132/82 07/07/2016 2:43 PM GROUP MANAGING DIRECTOR Pulse 73 07/07/2016 2:43 PM GROUP MANAGING DIRECTOR Temperature 37 C (98.6 F) 07/07/2016 2:43 PM GROUP MANAGING DIRECTOR Respiratory Rate - - Oxygen Saturation 97% 07/07/2016 2:43 PM GROUP MANAGING DIRECTOR Inhaled Oxygen Concentration - - Weight 101.6 kg (224 lb) 07/07/2016 2:43 PM GROUP MANAGING DIRECTOR Height 175.3 cm (5' 9) 07/07/2016 2:43 PM GROUP MANAGING DIRECTOR Body Mass Index 33.08 07/07/2016 2:43 PM GROUP MANAGING DIRECTOR Plan of Treatment Health Maintenance Due Date [...] topic Insurance MEDICARE COMMERCIAL GENERIC Care Teams Engineering Drawings Checker Relationship Specialty Start Date End Date Gerard Mo [address] [place] [address] PCP - General Family Medicine 07/04/16
--- OUTSIDE RECORDS SUMMARY | 2024-10-29 16:00 | XMS_ITS ---
Author Organization [facility] Address [address] [place] [address] Care Team Providers Care Xerox Machine Operator Name Role Phone Marcella Taylor MD Unavailable Anselmo Sampson MD Primary Care Provider [phone] Godfrey Villarreal MD Unavailable Dialysis Access Sites Type Status Location Placement [...] DEVICE Routine 09/20/2024 9 :00 AM CDT UT AN PROCEDURE PLACEHOLDER Routine 09/20/2024 7:59 AM CDT UT AN ELECTIVE ENDOTRACHEAL AIRWAY Routine 09/20/2024 7:59 [...] 08/08/2024 HEMOGLOBIN A1C Timed 07/11/2024 9:14 PM COMPANION CAREGIVER LIPID PANEL Routine 05/13/2024 9:16 AM COMPANION CAREGIVER Type 2 diabetes mellitus with stage 4 chronic kidney disease, with long-term current use of insulin (HCC) Hyperlipidemia associated with type 2 diabetes mellitus (HCC) ALBUMIN CREATININE RATIO, URINE Routine 05/13/2024 9:16 AM COMPANION CAREGIVER Type 2 diabetes mellitus with stage 4 chronic kidney disease, with long-term current use of insulin (HCC) Hypertension associated with diabetes (HCC) CT ABDOMEN PELVIS WO CONTRAST Schedule CAROLYN, Read CAROLYN (Appt Today, Awaiting Results) 12/14/2023 12:26 PM CDT GIST (gastrointestinal stroma tumor), malignant, 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) Abdominal pain HM DIABETES EYE EXAM Routine 06/15/2023 from Last [...] (two) times a day with meals Active xaamwek-hphmqkqxl-r inc 333-133-5 mg tabletIndications:V itamin Deficiency Prevention [...] coma, with long-term current use of insulin ([facility]) Check blood sugar 3 times daily 200 [...] coma, with long-term current use of insulin ([facility]) Inject 0.06 mL (6 Units total) under [...] 1 tablet (4 mg total) by mouth candle molder machine before breakfast 2023 Active cyanocobalamin (Vitamin B-12) [...] 07/11/2024 Assessment & Plan (07/14/2024 9:38 AM COMPANION CAREGIVER): Patient has had progression of CKD to now ESRD needing dialysis initiation given c/f uremia symptoms. Directly admitted per renal. Underwent tunneled dialysis catheter by IR on 07/12 and received HD on 07/12 and 07/13 -Hemodialysis as per Nephrology -Continue home bicarb URI (upper respiratory infection) 07/11/2024 Assessment & Plan (07/12/2024 12:59 PM COMPANION CAREGIVER): Suspected viral. COVID/flu/RSV neg 07/09. CXR neg 07/10. Was prescribed azithromycin on 07/09 which he took for 3 days. Will not continued further -Supportive care Hypomagnesemia 01/02/2024 CKD (chronic kidney disease) stage 4, GFR 15-29 ml/min 04/16/2023 Assessment & Plan (07/25/2023 10:06 AM COMPANION CAREGIVER): Chronic problem. Managed by Dr Flores. Has f/u appt at end of the month. Assessment & Plan (04/16/2023 8:48 PM COMPANION CAREGIVER): Chronic, stable Following with Store Cashier Acute kidney injury 02/24/2023 (HFpEF) heart failure with preserved ejection fr action 02/24/2023 Assessment & Plan (02/24/2023 3:38 PM CDT): TTE with EF 77% and at least grade 1 diastolic dysfunction (indeterminate on last TTE). Not in exacerbation -Cont home lasix 40mg -strict I&Os, daily weights -F/u with [employer] Representative Dr. Payton CAD (coronary artery disease) 02/24/2023 Assessment & Plan (02/24/2023 3:38 PM CDT): S/p prior 5v CABG in 2013 -Cont statin and coreg -Intolerant of PATI-I/ARB due to worsening renal function -ASA held due to procedure -F/u with Cardiology outpatient Hyperlipidemia associated with type 2 diabetes aimee ulloa 02/24/2023 Assessment & Plan (07/11/2024 9:32 PM COMPANION CAREGIVER): -Continue home welchol -Atorvastatin for home pitavastatin (non-formulary) Assessment & Plan (05/13/2024 9:10 AM COMPANION CAREGIVER): Continue statin therapy Assessment & Plan (11/16/2023 11:18 AM CDT): Chronic problem. Currently taking Pitavatatin 4mg daily. Last lipid panel: 02/24/23 LDL=76, XT=650. Assessment & Plan (07/25/2023 10:22 AM COMPANION CAREGIVER): Chronic problem. Currently taking Pitavatatin 4mg daily. Last lipid panel: 02/24/23 LDL=76, US=421. Assessment & Plan (04/16/2023 8:46 PM COMPANION CAREGIVER): On Pitavastatin therapy Tolerating well Assessment & Plan (02/24/2023 3:39 PM CDT): Cont statin and colesevelam Type 2 diabetes mellitus wit h stage 4 chronic kidney disease, with long-term current use of insulin 02/24/2023 Assessment & Plan (07/11/2024 9:31 PM COMPANION CAREGIVER): F/b endo. Home regimen: tresiba 5U QHS, aspart 6-8U TID with meals Pt/ report issues with hypoglycemia lately at home. -Will start with SSI for now; titrate/add scheduled insulin pending glucose trends Assessment & Plan (05/13/2024 9:10 AM COMPANION CAREGIVER): Chronic, uncontrolled, worsening Hemoglobin A1c 6.8 A1c [...] soon Daily foot care Advise to call [employer] and get the dexcom G 6 sensor to switch to G7 Check labs today Follow-up in 6 months Assessment & Plan (11/16/2023 11:17 AM CDT): Chronic problem. A1c stable at 6.1% but having overnight lows & occasionally lows after LN. Call your [employer] to switch from Dexcom G6 to Dexcom G7. Lower tresiba to 6 units nightly. If you notice that your over night readings are too high--start to increase by 1 unit weekly until they return to normal. If you're eating a tea tree farmer lunch--drop the Fiasp to 6 units. Current medications: Tresiba 6 units at bedtime Fiasp 4 units with breakfast & dinner, 8 units with lunch (6 units if tea tree farmer lunch) If blood sugar is between 151-200, add 1 units. If blood sugar is between 201-250, add 2 units. If blood sugar is between 251-300, add 3 units. If blood sugar is between 301-350, add 4 units. UTD on DM eye exam (06/15/23 at [facility]). UTD on labs. Discussed with [...] infection. Assessment & Plan (07/25/2023 10:02 AM COMPANION CAREGIVER): Chronic problem. A1c stable at 6.1% but having overnight lows & occasionally lows after LN. Call your supply company to switch from Dexcom G6 to Dexcom G7. Lower tresiba to 6 units nightly. If you notice that your over night readings are too high--start to increase by 1 unit weekly until they return to normal. If you're eating a tea tree farmer lunch--drop the Fiasp to 6 units. Current medications: Tresiba 6 units at bedtime Fiasp 4 units with breakfast & dinner, 8 units with lunch (6 units if tea tree farmer lunch) If blood sugar is between 151-200, add 1 units. If blood sugar is between 201-250, add 2 units. If blood sugar is between 251-300, add 3 units. If blood sugar is between 301-350, add 4 units. DM eye exam 06/2023 at [facility]. Letter sent to get copy of [...] infection. Assessment & Plan (04/16/2023 8:47 PM COMPANION CAREGIVER): Chronic , improving overall hyperglycemia but now [...] TID +SSI; adjust PRN -F/u with OSH bead preparer Proteinuria 02/24/2023 Assessment & Plan (02/25/2023 7:46 [...] 11/04/2021 Assessment & Plan (07/12/2024 12:57 PM COMPANION CAREGIVER): Getting aranesp outpatient -Trend CBC -Transfuse PRN [...] 11/04/2021 Assessment & Plan (07/11/2024 9:30 PM COMPANION CAREGIVER): -Continue home amlodipine, hydralazine, coreg Assessment & Plan (05/13/2024 9:11 AM COMPANION CAREGIVER): Chronic, fairly controlled for pt age Continue amlodipine Managed by nephrology Assessment & Plan (11/16/2023 11:18 AM CDT): Chronic problem. Controlled on current Carvedilol 25mg bid, amlodipine 10mg daily, lasix 20mg daily. not taking hydralazine currently Assessment & Plan (07/25/2023 10:05 AM COMPANION CAREGIVER): Chronic problem. Controlled on current Carvedilol 25mg bid, amlodipine 10mg daily, lasix 20mg daily. 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 021 GIST (gastrointestinal stroma tumor), malignant, colon 08/14/2020 Overview (08/14/2020): Added automatically from request for surgery [id number] Assessment & Plan (07/14/2024 9:38 AM COMPANION CAREGIVER): Pt of Dr Taylor -Holding home ripretinib [...] Cigarettes 1.5 14 1 967 - 1981 Passive Smoke Exposure: Never Smokeless Tobacco: Never [...] on file Legal Sex Male 6:14 AM COMPANION CAREGIVER Gender Identity Not on file Sexual Orientation [...] Mass Index 28.7 10/18/2024 8:25 AM CDT Results * (ABNORMAL) eGFR (10/16/2024 10:22 AM [...] MD LAB BLOOD ORDERABLES Final Resul t [facility] [place] [address] * Differential, auto (10/16/2024 10:22 AM CDT) Pathologist [facility] Neutrophil abs 5.36 1.50 - 6.50 K/cumm Comment:Testing performed by : [facility], [address] [place] [id number] Imm gran abs 0.08 0.00 - 0.10 K/cumm [facility] Lymphocyte abs 1.50 0.80 - 3.30 K/cumm [facility] Monocyte abs 0.64 0.20 - 0.80 K/cumm [facility] Eosinophil abs 0.37 0.00 - 0.50 K/cumm [facility] Basophil abs 0.06 0.00 - 0.10 K/cumm [facility] Neutrophil pct 67.0 % [facility] Comment: Interpretive Data Percent cell count reference ranges are not reported, since discordance with absolute values may lead to misinterpretation of CBC data. Current Interpretive Data was last revised on 2017. Imm gran pct 1.0 % [facility] Comment: Interpretive Data Percent cell count reference ranges are not reported, since discordance with absolute values may lead to misinterpretation of CBC data. Current Interpretive Data was last revised on 2017. Lymphocyte pct 18.7 % [facility] Comment: Interpretive Data Percent cell count reference ranges are not reported, since discordance with absolute values may lead to misinterpretation of CBC data. Current Interpretive Data was last revised on 2017. Monocyte pct 8.0 % [facility] Comment: Interpretive Data Percent cell count reference ranges are not reported, since discordance with absolute values may lead to misinterpretation of CBC data. Current Interpretive Data was last revised on 2017. Eosinophil pct 4.6 % [facility] Comment: Interpretive Data Percent [...] MD LAB BLOOD ORDERABLES Final Resul t [facility] [place] [address] * (ABNORMAL) CBC with auto differential (10/16/2024 10:22 AM CDT) WBC 8.01 3.80 - 9.90 K/cumm Comment:Testing performed by : [address] [address] Hgb 11.2(L) 13.0 - 17.5 g/dL [facility] Comment:Testing performed by : [address] [address] Hct 34.4(L) 38.9 - 50.3 % [facility] Comment:Testing performed by : [address] [id number] Plt 165 150 - 400 K/cumm [facility] Comment:Testing performed by : [facility], [address] [place] [id number] MPV 10.7 9.1 - 12.3 fL [facility] RBC 3.94(L) 4.30 - 5.80 M/cumm [facility] MCV 87.3 81.3 - 96.4 fL [facility] MCH 28.4 27.1 - 33.3 pg [facility] MCHC 32.6 32.3 - 35.7 g/dL [facility] RDW CV 14.6 11.1 - 14.9 % [facility] RDW SD 46.6 35.7 - 48.1 fL [facility] NRBC abs 0.00 0.00 - 0.01 K/cumm [facility] ANC Prelim 5.36 1.50 - 6.50 K/cumm [facility] Comment: Interpretive Data The rapid ANC is a preliminary automated count and may vary from the final ANC (Neut Abs) reported in the WBC differential that follows. Current interpretive data was last revised 2024. Blood 10/16/2024 10:2 2 AM CDT 10/16/2024 10:22 AM CDT Marcella Taylor MD LAB BLOOD ORDERABLES Final Resul t Performing Organization Address City/[facility] Co de Phone Number [facility] [place] [place] [address] * Lactate dehydrogenase (LD) (10/16/2024 10:22 AM CDT) Lactate dehydrogenase (LDH) 245 100 - 250 Units/L Comment:Testing performed by : [facility], [address] [place] [id number] Blood 10/16/2024 10:2 2 AM CDT 10/16/2024 10:22 AM CDT us Marcella Taylor MD LAB BLOOD ORDERABLES Final Resul t [facility] [place] [address] * (ABNORMAL) Comprehensive metabolic panel (10/16/2024 10:22 AM CDT) Sodium 138 135 - 145 mmol/L Comment:Testing performed by : [facility], [address] [place] [id number] Potassium, pl 4.6 3.3 - 4.9 mmol/L [facility] Chloride 104 97 - 110 mmol/L [facility] CO2 26 22 - 32 mmol/L [facility] Anion gap 8 2 - 15 mmol/L [facility] BUN 41(H) 6 - 25 mg/dL [facility] Creatinine 5.47(H) 0.80 - 1.30 mg/dL [facility] Glucose 230(H) 70 - 199 mg/dL [facility] Comment: Interpretive Data Fasting glucose >/= 126 [...] 2022. Calcium 8.4(L) 8.5 - 10.3 mg/dL [facility] Bilirubin, total 0.8 0.1 - 1.2 mg/dL [facility] Protein, pl 6.5 6.5 - 8.5 g/dL [facility] Albumin 3.7 3.5 - 5.0 g/dL [facility] Alk phos 84 40 - 130 Units/L [facility] ALT 12 7 - 55 Units/L [facility] AST 19 10 - 50 Units/L [facility] Blood 10/16/2024 10:2 2 AM CDT 10/16/2024 10:22 AM CDT us Marcella Taylor MD LAB BLOOD ORDERABLES Final Resul t [facility] [place] [address] * Vitamin B12 (10/16/2024 10:20 AM CDT) Vitamin B12 795 230 - 1,250 pg/mL Blood 10/16/2024 10:2 0 AM CDT 10/16/2024 1:49 PM CDT us Marcella Taylor MD LAB BLOOD ORDERABLES Final Resul t [facility] [place] [address] * PET/CT FDG Skull to Thigh (10/16/2024 [...] FDG-PET/CT IMAGING DATE OF STUDY: 10/16/2024 SCANNER: [facility] RADIOPHARMACEUTICAL: 16.31 mCi F-18 Fluorodeoxyglucose (FDG) i.v. [...] obtained. The study was interpreted on the GeoTr[employer] workstation. The mean liver SUV (reported for senior manager quality assurance purposes) is 2.4. The total scanned area [...] FDG-PET/CT IMAGING DATE OF STUDY: 10/16/2024 SCANNER: [facility] RADIOPHARMACEUTICAL: 16.31 mCi F-18 Fluorodeoxyglucose (FDG) i.v. [...] obtained. The study was interpreted on the [employer] workstation. The mean liver SUV (reported for senior manager quality assurance purposes) is 2.4. The total scanned area [...] AM CDT Narrative 10/11/2024 1:44 PM CDT [facility] - Department of Vascular Surgery, Vascular Laboratory [address] [place] [address] Dialysis Access Fistula/Graft Duplex Report Patient Name: JOSÉ LUIS GAMBLE : 1945 (79y ) Gender: M Study Date: 10/11/2024 10:49:25 AM Costumed Character Entertainer: GONZALO Location: [facility] Order Provider: GODFREY VILLARREAL Quality: [...] Arm Diameter 0.46 cm Rt Deep Vein [place] 58.40 cm/s Rt Outflow Distal Arm Depth 0.27 cm Rt Axillary Vein PSV 58.20 cm/s Rt Outflow Mid Arm Diameter 0.38 cm Rt Subclavian Vein 26.60 cm/s Rt Outflow Mid Arm Depth 0.56 cm Rt Outflow Vein (Graft) Volume Flow Average 310 cc/min Rt Outflow Proximal Arm Diameter 0.43 cm Rt Outflow Proximal Arm Depth 0.71 cm Rt Deep Vein [place] Diameter 0.43 cm Rt Deep Vein [place] Depth 2.10 cm Rt Inflow Artery Diameter 0.53 cm Diameter/Depth Value Units Velocities Value Units FINDINGS: Performing Costumed Character Entertainer: Jayda Dunn RVT. [place] Arterial Inflow Normal: No evidence of arterial [...] above. Electronically Signed By: Josias Cox MD FACS [phone] 10/11/2024 1:30:12 PM CDT Procedure Note Josias Cox MD - 10/11/2024 [facility] - Department of Vascular Surgery,Vascular Laboratory [address] [place] [id number] Dialysis Access Fistula/Graft Duplex Report Patient Name: JOSÉ LUIS GAMBLE : 1945 (79y ) Gender: M Study Date: 10/11/2024 10:49:25 AM Costumed Character Entertainer: GONZALO Location: [facility] Order Provider: GODFREY VILLARREAL Quality: [...] Arm Diameter 0.46 cm Rt Deep Vein [place] 58.40cm/s Rt Outflow Distal Arm Depth 0.27 cm Rt Axillary Vein PSV 58.20 cm/s Rt Outflow Mid Arm Diameter 0.38 cm Rt Subclavian Vein 26.60 cm/s Rt Outflow Mid Arm Depth 0.56 cm Rt Outflow Vein (Graft) Volume FlowAverage 310 cc/min Rt Outflow Proximal Arm Diameter 0.43 cm Rt Outflow Proximal Arm Depth 0.71 cm Rt Deep Vein [place] Diameter 0.43 cm Rt Deep Vein [place] Depth 2.10 cm Rt Inflow Artery Diameter 0.53 cm Diameter/Depth Value Units Velocities Value Units FINDINGS: Performing Costumed Character Entertainer: Jayda Dunn RVT. [place] Arterial Inflow Normal: No evidence of arterial [...] above. Electronically Signed By: Josias Cox MD [facility] [phone] 10/11/2024 1:30:12 PM CDT Godfrey Villarreal MD IMG US PROCEDURES Final R esult * POCT glucose (09/20/2024 9:25 AM CDT) Glucose, POC 145 70 - 199 mg/dL Blood 09/20/2024 9:25 AM CDT 09/20/2024 9:25 AM CDT Godfrey Villarreal MD LAB POCT ORDERABLES - DEV ICE Final Result Performing Organization Address City/[facility]/ZIP Co de Phone Number [facility] [place] [address] * POCT glucose (09/20/2024 9:00 AM CDT) Glucose, POC 133 70 - 199 mg/dL Blood 09/20/2024 9:00 AM CDT 09/20/2024 9:00 AM CDT Godfrey Villarreal MD LAB POCT ORDERABLES - DEV ICE Final Result Performing Organization Address City/[facility]/ZIP Co de Phone Number [facility] [place] [address] * UT AN ELECTIVE ENDOTRACHEAL AIRWAY, UT AN PROCEDURE PLACEHOLDER (09/20/2024 7:59 AM CDT) Narrative Caridad Hernandez CRNA - 09/20/2024 7:59 AM CDT Caridad Hernandez CRNA 09/20/2024 8:00 AM Airway Patient location: OR Urgency: elective Date/time: 09/20/2024 7:36 AM Indications for airway management: anesthesia Difficult airway: no Staff: Supervising provider: Joshua Rodgers MD Placed by: ADULT EDUCATOR: Caridad Hernandez CRNA Emergent airway documentation: Risks [...] K POC 3.2(L) 3.3 - 4.9 mmol/L [facility] Comment: Interpretive Data Not all point of care methods assess for hemolysis. Confirm with instrument and retest K+ if not consistent with clinical signs and symptoms. Current Interpretive Data was last revised on 2023. Glucose, POC 165 70 - 199 mg/dL [facility] Hct, POC 33.0(L) 41.4 - 51.6 % [facility] Total Hb, POC 11.0(L) 13.8 - 17.2 g/dL [facility] Blood 09/20/2024 7:05 AM CDT 09/20/2024 7:05 AM CDT Godfrey Villarreal MD LAB POCT ORDERABLES - DEV ICE Final Result Performing Organization Address [facility] Co de Phone Number [facility] Department [place] [address] * (ABNORMAL) eGFR (08/14/2024 11:18 AM CDT) Pathologist [facility], [...] ORDERABLES Final Resul t Performing Organization Address City/[facility]/ZIP Co de Phone Number [facility] Department [place] [address] * (ABNORMAL) Differential, auto (08/14/2024 11:18 AM CDT) Neutrophil abs 7.7(H) 1.5 - 6.5 K/cumm Comment:Testing performed by : [facility], [address] [place] [id number] Imm gran abs 0.1 0.0 - 0.1 K/cumm [facility] Lymphocyte abs 2.0 0.8 - 3.3 K/cumm [facility] Monocyte abs 0.8 0.2 - 0.8 K/cumm [facility] Eosinophil abs 0.4 0.0 - 0.5 K/cumm [facility] Basophil abs 0.1 0.0 - 0.1 K/cumm [facility] Neutrophil pct 69.7 % [facility] Comment: Interpretive Data Percent cell count reference ranges are not reported, since discordance with absolute values may lead to misinterpretation of CBC data. Current Interpretive Data was last revised on 2017. Imm gran pct 0.5 % [facility] Comment: Interpretive Data Percent cell count reference ranges are not reported, since discordance with absolute values may lead to misinterpretation of CBC data. Current Interpretive Data was last revised on 2017. Lymphocyte pct 17.9 % [facility] Comment: Interpretive Data Percent cell count reference ranges are not reported, since discordance with absolute values may lead to misinterpretation of CBC data. Current Interpretive Data was last revised on 2017. Monocyte pct 7.6 % [facility] Comment: Interpretive Data Percent cell count reference ranges are not reported, since discordance with absolute values may lead to misinterpretation of CBC data. Current Interpretive Data was last revised on 2017. Eosinophil pct 3.6 % [facility] Comment: Interpretive Data Percent cell count reference ranges are not reported, since discordance with absolute values may lead to misinterpretation of CBC data. Current Interpretive Data was last revised on 2017. Basophil pct 0.7 % [facility] Comment: Interpretive Data Percent cell count reference ranges are not reported, since discordance with absolute values may lead to misinterpretation of CBC data. Current Interpretive Data was last revised on 2017. Blood 08/14/2024 11:1 8 AM CDT 08/14/2024 11:18 AM CDT us Marcella Taylor MD LAB BLOOD ORDERABLES Final Resul t [facility] [place] [address] * (ABNORMAL) CBC with auto differential (08/14/2024 11:18 AM CDT) [facility] WBC 11.0(H) 3.8 - 9.9 K/cumm Comment:Testing performed by : [facility], [address] [place] [id number] Hgb 10.3(L) 13.0 - 17.5 g/dL [facility] Comment:Testing performed by : [address] [address] Hct 32.1(L) 38.9 - 50.3 % [facility] Comment:Testing performed by : [address] [address] Plt 187 150 - 400 K/cumm [facility] Comment:Testing performed by : [address] [address] MPV 9.6 9.1 - 12.3 fL [facility] RBC 3.88(L) 4.30 - 5.80 M/cumm [facility] MCV 82.7 81.3 - 96.4 fL [facility] MCH 26.5(L) 27.1 - 33.3 pg [facility] MCHC 32.1(L) 32.3 - 35.7 g/dL [facility] RDW CV 17.1(H) 11.1 - 14.9 % [facility] RDW SD 51.6(H) 35.7 - 48.1 fL [facility] NRBC abs 0.00 0.00 - 0.01 K/cumm [facility] Blood 08/14/2024 11:1 8 AM CDT 08/14/2024 11:18 AM CDT us Marcella Taylor MD LAB BLOOD ORDERABLES Final Resul t [facility] [place] [address] * (ABNORMAL) Lactate dehydrogenase (LD) (08/14/2024 11:18 AM CDT) [facility] Lactate dehydrogenase (LDH) 343(H) 100 - 250 Units/L Comment:Testing performed by : [facility], [address] [place] [id number] Blood 08/14/2024 11:1 8 AM CDT 08/14/2024 11:18 AM CDT Marcella Taylor MD LAB BLOOD ORDERABLES Final Resul t [facility] [place] [address] * (ABNORMAL) Comprehensive metabolic panel (08/14/2024 11:18 AM CDT) Sodium 142 135 - 145 mmol/L Comment:Testing performed by : [facility], [address] [place] [id number] Potassium, pl 4.7 3.3 - 4.9 mmol/L [facility] Chloride 107 97 - 110 mmol/L [facility] CO2 27 22 - 32 mmol/L [facility] Anion gap 8 2 - 15 mmol/L [facility] BUN 41(H) 6 - 25 mg/dL [facility] Creatinine 5.63(H) 0.80 - 1.30 mg/dL [facility] Glucose 170 70 - 199 mg/dL [facility] Comment: Interpretive Data Fasting glucose >/= 126 [...] 2022. Calcium 8.0(L) 8.5 - 10.3 mg/dL [facility] Bilirubin, total 0.5 0.1 - 1.2 mg/dL [facility] Protein, pl 6.5 6.5 - 8.5 g/dL [facility] Albumin 3.6 3.5 - 5.0 g/dL [facility] Alk phos 83 40 - 130 Units/L [facility] ALT 11 7 - 55 Units/L [facility] AST 22 10 - 50 Units/L [facility] Blood 08/14/2024 11:1 8 AM CDT 08/14/2024 11:18 AM CDT us Marcella Taylor MD LAB BLOOD ORDERABLES Final Resul t [facility] Department [place] [address] * US Vein Mapping Fistula Access, Bilateral (08/12/2024 9:16 AM CDT) Anatomical Region Laterality Modality Vascular Bilateral Ultrasound 08/12/2024 7:00 AM CDT Narrative 08/12/2024 12:47 PM CDT [facility] - Department of Vascular Surgery, Vascular Laboratory [address] [place] [address] Upper Extremity Vein Mapping Report Patient Name: JOSÉ LUIS GAMBLE : 1945 (78y 10m) Study Date: 08/12/2024 7:00:58 AM Gender: M Costumed Character Entertainer: GONZALO Location: [facility] Provider: GODFREY VILLARREAL Quality: Adequate Order Provider: [...] Value Units Left Value Units FINDINGS: Performing Costumed Character Entertainer: Jayda Dunn RVT. Bilateral: Venous Doppler signals [...] above. Electronically Signed By: Josias Cox MD [facility] [phone] 08/12/2024 12:46:53 PM CDT Procedure Note Josias Cox MD - 08/12/2024 [facility] - Department of Vascular Surgery,Vascular Laboratory [address] [place] [address] Upper Extremity Vein Mapping Report Patient Name: JOSÉ LUIS GAMBLE : 1945 (78y 10m) Study Date: 08/12/2024 7:00:58 AM Gender: M Costumed Character Entertainer: GONZALO Location: [facility] Provider: GODFREY VILLARREAL Quality: Adequate Order Provider: [...] Value Units Left Value Units FINDINGS: Performing Costumed Character Entertainer: Jayda Dunn RVT. Bilateral: Venous Doppler signals [...] above. Electronically Signed By: Josias Cox MD [facility] [phone] 08/12/2024 12:46:53 PM CDT us Godfrey Villarreal MD IMG US PROCEDURES Final R esult * SCAN - LABS (08/08/2024) us Provider Scanning Final Result * (ABNORMAL) Hemoglobin A1c (07/11/2024 9:14 PM COMPANION CAREGIVER) Hgb A1C 6.3(H) 4.0 - 5.6 % Estimated Average Glucose 134 mg/dL [facility] Comment: The ADA recommends reporting an estimated Average Glucose (eAG) with all Hemoglobin A1c results using the equation derived from a study of 507 normal and diabetic adults. Minority populations were underrepresented and children were not included. (Diabetes Care 2020; 43(S1): S66-S76). The eAG is not equivalent to a fasting glucose. Blood 07/11/2024 9:14 PM COMPANION CAREGIVER 07/11/2024 9:39 PM COMPANION CAREGIVER Narrative [facility] - 07/12/2024 8:23 AM COMPANION CAREGIVER Reflex us Rex Reid MD LAB BLOOD ORDERABLES Final Resul t [facility] [place] [address] * (ABNORMAL) Albumin Creatinine Ratio, Urine (05/13/2024 9:16 AM COMPANION CAREGIVER) Albumin Ur 3,688.8 mg/L Comment: Interpretive Data No reference range established. Current interpretive data was last revised 2018. Creatinine Ur 59.2 mg/dL [facility] Comment: Interpretive Data No reference range established. Current interpretive data was last revised 2018. Albumin Creatinine Ratio, Ur 6,231(H) 1 - 29 mg/g [facility] Urine 05/13/2024 9:16 AM COMPANION CAREGIVER 05/13/2024 2:55 PM COMPANION CAREGIVER Matt Kendrick MD LAB URINE ORDERABLE S Final Result [facility] [address] Department [place] [address] * (ABNORMAL) Lipid panel (05/13/2024 9:16 AM COMPANION CAREGIVER) Cholesterol 128 30 - 199 mg/dL Comment: [...] ratio 3 [facility] Blood 05/13/2024 9:16 AM COMPANION CAREGIVER 05/13/2024 2:55 PM COMPANION CAREGIVER Matt Kendrick MD LAB BLOOD ORDERABLE S Final Result [facility] [address] [place] [address] * CT abdomen pelvis without contrast (12/14/2023 [...]
--- OUTSIDE RECORDS SUMMARY | 2024-10-29 16:00 | XMS_ITS | Encounter Summary ---
Author Organization [facility] Address [address] [facility] [address] [place] [address] Phone Care Team Providers Care Hackler Doll Wigs Name Role Phone Marcella Taylor MD Primary Care Provider [phone] Gerard Mo MD Primary Care Provider [phone] Marcella Taylor MD Unavailable Anselmo Sampson MD Primary Care Provider [phone] Godfrey Villarreal MD Unavailable [phone] Encounter Details Date Type Department Care Team (Late st Contact Info) Description 10/26/2017 Orders Only [facility] ProviderQuinten MD [address] [place] [address] Social History Tobacco Use Types Packs/Day Years Used Date Smoking Tobacco: Former Sex and Gender Information Value Date Recorded Sex Assigned at Not on file Legal 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 Gender Identity Not on file Sexual Orientation Not on file documented as of this encounter Plan of Treatment Upcoming Encounters Date Type Department Care Team (Latest Contact Info) Description 11/04/2024 12:00 PM CDT Hospital Encounter [facility] Operating Room [address] [place] [address] Godfrey Villarreal MD [address] [facility] [address] [place] [address] 11/04/2024 12:00 PM CDT Anesthesia Event [facility] Operating Room [address] [place] [address] Maryjo Galicia NP [address] [place] [address] 11/04/2024 12:00 PM CDT - 11/04/2024 3:05 PM CDT Surgery [facility] Operating [address] [place] [address] Godfrey Villarreal MD [address] [facility] [address] [place] [address] CREATION ARTERIOVENOUS FISTULA - ARM-brachialcephalic Scheduled Procedures Name Priority Associated Diagnoses Date/Ti me CREATION ARTERIOVENOUS FISTULA - ARM End stage renal disease on dialysis ([facility]) 11/04/2024 12:00 PM CDT REVISION ARTERIOVENOUS FISTULA - ARM End stage renal disease on dialysis ([facility]) 11/04/2024 12:00 PM CDT documented as [...] COVID: Suspected 07/09/2024 07/09/2024 07/09/2024 11:36 AM MIDDLE SCHOOL TEACHER COVID: Suspected 07/09/2024 07/09/2024 07/09/2024 4:05 PM MIDDLE SCHOOL TEACHER documented as of this encounter Care Teams Hackler Doll Wigs Relationship Specialty Start Date End Date Marcella Taylor MD [address] [place] [address] PCP - General 10/26/17 10/31/17 Gerard Mo MD [address] [place] [address] PCP - General 11/01/17 04/25/22 [place] [address] [place] [address] PCP - General Family Practice 04/26/22 Marcella Taylor MD [address] [place] [address] Medical Oncologist/Slitting Machine Operator Helper Medical Oncology 08/08/20 Godfrey Villarreal MD [address] [facility] [address] [place] [address] Surgeon Vascular Surgery 09/20/24 documented as of this encounter
--- OUTSIDE RECORDS SUMMARY | 2024-10-29 16:00 | XMS_ITS | Data Portability ---
Author Organization [facility], Main Office Address [address] [place] [address] Care Team Providers Care Element Winding Machine Tender Name Role Phone AIMEE VILLAVICENCIO Primary Care Provider Assessment No assessment recorded. Plan of Treatment Reminders Order Date Submit Date Provider Last Modified By Organization Details Last Modified Time Details Appointments None recorded. Lab CMP, serum or plasma 2022 023 [facility] (Lab), [address] [place], [address], 3 11:24:43 HbA1c (hemoglobin A1c), blood 2022 023 [facility] (Lab), [address] [place], [address], 3 10:08:31 microalbumi n/creatinin e, mass ratio, urine 2022 023 [facility] (Lab), [address] [place], [address], 3 10:07:27 TSH + free T4, serum 2022 023 [facility] (Lab), [address] [place], [address], 3 11:32:36 Referral None recorded. Procedures None recorded. Surgeries None recorded. Imaging None recorded. Medication Orders Tresiba FlexTouch U-100 insulin 100 unit/mL (3 mL) subcutaneou s pen 2022 023 [id number], [address] [place], [address], 3 11:22:41 Fiasp FlexTouch U-100 Insulin 100 unit/mL (3 mL) subcutaneou s pen 2022 023 [facility] [place][id number], [address] [place], [address], 3 11:38:50 Patient TargetsNo targets recorded. Patient InstructionsNo instructions recorded. Reason for Referral None Reported. Results Created Date Observation Date Name Description Value Unit Range Abnormal Flag Note LastModifiedBy Organization Detail LastModifiedTime Result Notes None recorded. Problems Name Problem SNOMED Code Status Onset Date Resolution Date Notes Provider Name and Address Organization Details Recorded Time Uncontrolled type 2 diabetes mellitus 002471107 Active 2022 Not Available [facility] 3 17:39:17 Well controlled type 2 diabetes mellitus 640998485 Active 2022 Not Available [facility] 3 17:39:18 Problem Notes None recorded. Medical [...] Body weight Body temperature Heart rate Systolic And Diastolic Provider Name and Address Organization Details Last Updated DateTime 11/25/2022 51725.46 g 97.5 [degF] 59 /min 167/72 mm[Hg] MATTHIAS Graves [place] [employer] [facility] 11/25/2022 10:49:15 Date Recorded Body weight Body mass index (BMI) Body height Respiratory rate Body temperature Heart rate Systolic And Diastolic Provider Name and Address Organization Details Last Updated DateTime 89772.6 1 g 30.6 kg/m2 177.8 cm 14 /min 97.8 [degF] 55 /min 145/71 mm[Hg] Joann Servin RN [facility] 12:43:00 Social History Question Answer Notes LastModified by Work[employer] Details LastModified Time Tobacco Smoking Status Former Smoker Letha Ramsey, MATTHIAS null, [place] [facility] 11/25/2022 10:51:36 Are You Blind Or Do You Have [...] 11/25/2022 When Did You Quit Smoking? 16+yearssin linda [place] Information not available 11/25/2022 Have You Recently Traveled Abroad? No Information not available 11/25/2022 Do You Have Difficulty Walking Or Climbing Stairs? No Information not available 11/25/2022 Do You Have Any Dietary Restrictions? No Information not available 11/25/2022 Sex: Unknown Functional Status Question Answer Note LastModified by Organizat [employer] Details LastModified Time Do you use any illicit or recreational drugs? No Information not available 11/25/2022 What is your level of alcohol consumption? None Information not available 11/25/2022 Do you have [...] available 11/25/2022 10:51:14 Medical History Condition Response DIABETES, TYPE Y RADIATION / CHEMOTHERAPY Y HIGH CHOLESTEROL / HYPERLIPIDEMIA Y SURGERY Y HEART DISEASE/HEART PROBLEMS Y KIDNEY DISEASE Y HYPERTENSION Y CANCER: SPECIFY Y BLOOD TRANSFUSION ANEMIA/BLOOD DISORDER Y Past Encounters Encounter ID Performer Location Encounter Start Date Encounter Closed Date Diagnosis/Indication Diagnosis SNOMED-CT Code Diagnosis ICD10 Code Diagnosis Note [id number] Montse Navarro MD [facility] [address] [place] [address] 11/25/2022 10:38:03 11/25/2022 11:47:40 Uncontrolled type 2 diabetes mellitus 254945982 E11.65 A1C of 6.3%- Will transition off [...] informatio n in the electronic health record, lorraine bauer interpreti ng results and communicat ing results to the patient. RTC in 2-3 months. Patient was provided a handwritte n lab order which contains our fax number. If he chooses to go outside of the [facility] system to obtain labwork he was [...] ing. Thank you for this consultati on. [id number] Montse Navarro MD [facility] [address] [place] [address] 12/08/2022 10:07:08 12/08/2022 11:11:16 Uncontrolled type 2 diabetes mellitus 204311450 E11.65 Patient tolerated placement of dexcom sensor without pain or site reaction; patient is aware to change sensor every 10 days. [id number] Montse Navarro MD [facility] [address] [place] [address] 01/09/2023 12:17:38 01/09/2023 13:54:08 Well controlled type 2 diabetes mellitus 387522506 E11.9 A1C of 6.5% in range- continue [...] OPERATING ENGINEERS - LOCAL [address] [id number] Navdeep Ganzer 11/25/2022 1 [place] Navdeep M Ganzer [id number] Navdeep Ganzer 12/08/2022 2 EMPLOYERS AND OPERATING ENGINEERS - LOCAL [address] [id number] Navdeep Ganzer 12/08/2022 1 [place] Navdeep Trey Ganzer [id number] Navdeep Ganzer 01/09/2023 2 EMPLOYERS AND OPERATING ENGINEERS - LOCAL [address] [id number] Navdeep Ganzer 01/09/2023 1 [place] Navdeep M Ganzer [id number] Navdeep Ganzer Notes Date Note Type [...] bedtime. labs from 07/28:Cr 2.65 mg/dlGFR 24 dmaymq0c 6.3%H/H low Montse Navarro MD [address] [facility] [address], [place], [address], [employer] 11/25/2022 22:30:36 12/08/2022 text/html 77 yo male comes in for dexcom sensor placement in management of type 2 DM. Montse Navarro MD [address], [place], [address], [employer] 12/23/2022 21:45:41 01/09/2023 text/html 77 yo male [...] 15 ml/min Montse Navarro MD [address] [facility] [address], [place], [address], [place] [facility] 01/09/2023 13:46:23
--- OUTSIDE RECORDS SUMMARY | 2024-10-29 16:00 | XMS_ITS | Encounter Summary ---
Author Organization [facility] Address [address] [facility] [address] [place] [address] Phone Care Team Providers Care Missileman Name Role Phone Gerard Mo MD Primary Care Provider [phone] Marcella Taylor MD Unavailable Anselmo Sampson MD Primary Care Provider [phone] Godfrey Villarreal MD Unavailable [phone] Encounter Details Date Type Department Care Team (Latest Contact Info) Description 08/09/2018 Orders Only [facility] Scanning, Provider Social History Tobacco Use Types Packs/Day Years Used Date Smoking Tobacco: Former Smokeless Tobacco: Never Sex and Gender Information Value Date Recorded Sex Assigned at Not on file 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 Gender Identity Not on file Sexual Orientation Not on file documented as of this encounter Plan of Treatment Upcoming Encounters Date Type Department Care Team (Latest Contact Info) Description 11/04/2024 12:00 PM CDT Hospital Encounter [facility] Operating [address] [place] [address] Godfrey Villarreal MD [address] [facility] [address] [place] [address] 11/04/2024 12:00 PM CDT Anesthesia Event [facility] [address] [place] [address] Maryjo Galicia, FAMILY DAY CARE WORKER [address] [place] [address] 11/04/2024 12:00 PM CDT - 11/04/2024 3:05 PM CDT Surgery [facility] [address] [place] [address] Godfrey Villarreal MD [address] [facility] [address] [place] [address] CREATION ARTERIOVENOUS FISTULA - ARM-brachialcephalic Scheduled Procedures Name Priority Associated Diagnoses Date/Ti me CREATION ARTERIOVENOUS FISTULA - ARM 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) 11/04/2024 12:00 PM CDT REVISION ARTERIOVENOUS FISTULA - ARM End stage renal disease on dialysis ([facility]) 11/04/2024 12:00 PM CDT documented [...] COVID: Suspected 07/09/2024 07/09/2024 07/09/2024 11:36 AM POLICE SPECIALIST COVID: Suspected 07/09/2024 07/09/2024 07/09/2024 4:05 PM POLICE SPECIALIST documented as of this encounter Care Teams Missileman Relationship Specialty Start Date End Date Gerard Mo MD PCP - General 11/01/17 04/25/22 [place] [address] [address] PCP - General Family Practice 04/26/22 Marcella Taylor MD [address] [place] [address] [address] [place] [address] Medical Oncologist/Child Welfare Specialist Medical Oncology 08/08/20 Godfrey Villarreal MD [address] [facility] [address] [place] [address] Surgeon Vascular Surgery 09/20/24 documented as of this encounter
--- NOTE | 2024-10-29 16:02 | ED_ITS ---
HPI - Chest Pain General Chief Complaint: Chest Pain <BIJU Chiang Last Filed: 10/29/24 16:10> Stated Complaint: Chest pain/tightness since yesterday <BIJU Chiang Last Filed: 10/29/24 16:10> Time Seen by Provider: 10/29/24 16:02 <BIJU Chiang Last Filed: 10/29/24 16:10> Focused HPI: Patient is a 79 y/o male, with PMH of 5-vessel CABG, CAD w/ stent, DM, ESRD on HD T//Mon, who presents to the ED with c/o CP. Patient reports he developed pain and tightness across his midsternal chest yesterday. States pain has been intermittent since then. Was present during dialysis appointment today. He did receive a full treatment. States pain is worse with laying flat. Denies aggravation with exertion. He does also report SOB with the CP and with exertion. Denies cough, congestion. Reports chronic swelling in L leg. Patient sees a Dr. Teresa Palomares with Cardiology at [facility]. Steel Spar Operator = Jeff GENERAL: Well-appearing, well-nourished, and in no acute distress. HEAD: Normocephalic, atraumatic. CHEST: Clear to auscultation. ?No respiratory distress. HEART: Regular rate and rhythm.?Dialysis catheter in R upper chest. NEURO: ?Alert and oriented x3. Patient screened in triage and initial orders placed.? ?Additional care and disposition to be based upon?diagnostic testing and treatment. <BIJU Chiang Last Filed: 10/29/24 16:10> Focused HPI: Patient is a 79 y/o male, with PMH of 5-vessel CABG, CAD w/ stent, DM, ESRD on HD //Mon, who presents to the ED with c/o CP. Patient reports he developed pain and tightness across his midsternal chest yesterday. States pain has been intermittent since then. Was present during dialysis appointment today. He did receive a full treatment. States pain is worse with laying flat. Denies aggravation with exertion. He does also report SOB with the CP and with exertion. Denies cough, congestion. Reports chronic swelling in L leg. Patient sees a Dr. Teresa Palomarse with Cardiology at [facility]. Steel Spar Operator = Jeff GENERAL: Well-appearing, well-nourished, and in no acute distress. HEAD: Normocephalic, atraumatic. CHEST: Clear to auscultation. ?No respiratory distress. HEART: Regular rate and rhythm.?Dialysis catheter in R upper chest. NEURO: ?Alert and oriented x3. Patient screened in triage and initial orders placed.? ?Additional care and disposition to be based upon?diagnostic testing and treatment. <Dasia Walsh APRN - Last Filed: 10/30/24 03:03> Source: patient <Joann Morrow PA-C - Last Filed: 10/29/24 16:10> Mode of arrival: ambulatory <Joann Morrow PA-C - Last Filed: 10/29/24 16:10> Limitations: no limitations <BIJU Chiang Last Filed: 10/29/24 16:10> Related Data Allergies/Adverse Reactions: Allergies Allergy/AdvReac Type Severity Reaction Status Date / Time No Known Allergies Allergy Verified 10/29/24 15:58 <BIJU Chiang Last Filed: 10/29/24 16:10> Review of Systems 2 Review of Systems: All systems reviewed & are unremarkable except as noted in HPI and below <Dasia Walsh APRN - Last Filed: 10/30/24 03:03> PMFSH Past Medical History Medical History: Medical History Insulin dependent diabetes mellitus <BIJU Chiang Last Filed: 10/29/24 16:10> Social History Social History: Social History Smoking status: Former smoker Smoking end date: 06/05/10 Alcohol intake: never Do You Feel Safe in your Home?: Yes Lack of Transportation: No Lack of Food: Never True Current Housing: I Have Housing Concerned About Future Housing: No Difficulty Paying Gas/Electric Bills: No Difficulty Paying for Meds: No Currently Unemployed: No Education: High School Diploma/GED <Joann Morrow PA-C - Last Filed: 10/29/24 16:10> Exam 2 Narrative: GENERAL: Well appearing, well-nourished, non-toxic, in no acute distress. HEAD: Normocephalic, atraumatic. NECK: Supple. No adenopathy, no masses. RESPIRATORY: Airway patent, respirations nonlabored. Clear to auscultation bilaterally, no rales, rhonchi, wheezing. CARDIOVASCULAR: Regular rate and rhythm without murmurs, rubs, or gallops. Peripheral pulses 2+ and equal bilaterally. ABDOMINAL: Soft, nontender, nondistended, no hepatosplenomegaly. Normoactive BS. MUSCULOSKELETAL: Moves all extremities. Strength/ROM intact without gross deformities. SKIN: Warm, dry, normal color. No rashes. Dialysis catheter in R upper chest. NEURO: A&O X3. Speech clear. Cranial nerves II-XII intact. No ataxic movements. PSYCHIATRIC: Appropriate mood and affect. Normal interaction. <Dasia Walsh APRN - Last Filed: 10/30/24 03:03> Course Vital Signs Vital signs: Vital Signs Temperature 36.8 C 10/29/24 16:11 Pulse Rate 70 10/29/24 16:11 Respiratory Rate 16 10/29/24 16:11 Blood Pressure 161/82 H 10/29/24 16:11 Pulse Oximetry 96 10/29/24 16:11 Oxygen Delivery Room Air 10/29/24 16:11 Temperature 36.9 C 10/29/24 22:04 Pulse Rate 69 10/29/24 23:58 Respiratory Rate 17 10/30/24 02:42 Blood Pressure 166/70 H 10/30/24 02:42 Pulse Oximetry 97 10/29/24 22:54 Oxygen Delivery Room Air 10/29/24 22:04 <Joann Morrow PA-C - Last Filed: 10/29/24 16:10> Vital Signs Temperature 36.8 C 10/29/24 16:11 Pulse Rate 70 10/29/24 16:11 Respiratory Rate 16 10/29/24 16:11 Blood Pressure 161/82 H 10/29/24 16:11 Pulse Oximetry 96 10/29/24 16:11 Oxygen Delivery Room Air 10/29/24 16:11 Temperature 36.9 C 10/29/24 22:04 Pulse Rate 69 10/29/24 23:58 Respiratory Rate 17 10/30/24 02:42 Blood Pressure 166/70 H 10/30/24 02:42 Pulse Oximetry 97 10/29/24 22:54 Oxygen Delivery Room Air 10/29/24 22:04 <Dasia Walsh, MARLIN - Last Filed: 10/30/24 03:03> MDM - Chest Pain MDM Narrative Medical decision making narrative: MSE by NAVIN in triage. <Joann Morrow PA-C - Last Filed: 10/29/24 16:10> MSE by NAVIN in triage. Patient is a 79 y/o male, with PMH of 5-vessel CABG, CAD w/ stent, DM, ESRD on HD T//Mon, who presents to the ED with c/o CP. Patient reports he developed pain and tightness across his midsternal chest yesterday. States pain has been intermittent since then. Was present during dialysis appointment today. He did receive a full treatment. States pain is worse with laying flat. Denies aggravation with exertion. He does also report SOB with the CP and with exertion. Denies cough, congestion. Reports chronic swelling in L leg. Labs Ordered: CBC, CMP, troponin, PTT, INR, proBNP, lipase Imaging Ordered: CT chest diagnostic, chest x-ray Medications Ordered: None necessary Results: Patient's chest x-ray indicates Sternal wires and mediastinal clips are identified, the wires are midline and intact. Right internal jugular tunneled central venous hemodialysis catheter identified with its tip projecting over the cavoatrial junction. The remainder of the cardiomediastinal silhouette is otherwise unremarkable. The lungs are clear. Patient's CT scan indicates no focal consolidation pleural effusion or pneumothorax in lungs. Atelectasis at lung bases. Cardiomegaly. Sternotomy wires. Atherosclerotic changes. Dialysis catheter terminates in SVC. Hepatic steatosis. Cholelithiasis. Calcified splenic granulomas. Mild splenomegaly. Diagnosis: atypical chest pain Risks: HEART score: high risk HEART Pathway for Early Discharge in Acute Chest Pain from [facility] on 10/29/2024 All calculations should be rechecked by clinician prior to use RESULT SUMMARY: 5 points HEART Pathway Score High risk 12-65% 30-day MACE Admit to hospital or observation. Further testing indicated. INPUTS: History ?> 1 = Moderately suspicious EKG ?> 1 = Non-specific repolarization disturbance Age ?> 2 = >=5 Risk factors ?> 1 = 1-2 risk factors Initial troponin ?> 0 = <=Normal limit Patient Education/Shared MDM: Results of lab work and imaging shared with patient. He endorses improvement of symptoms and would like to be discharged home. Pt reports he hasn't had an episode of the chest pain since he got back to his ER room and I've been laying pretty flat the whole time! Risks of leaving discussed with pt and his , including the risk of cardiac . He and his verbalize understanding. EXTENSIVE discussion between ER REGISTRAR, pt and about the importance of following up with his copy manager as soon as possible. Pt verbalizes understanding and is in agreement with plan for discharge. He was offered a dose of Lasix here in the ER prior to leaving but he reports he will take it at home. Vital signs stable at time of discharge. All questions answered. STRICT return precautions provided. <Dasia Walsh APRN - Last Filed: 10/30/24 03:03> Differential Diagnosis Differential diagnosis: Likely atypical chest pain and st elevation myocardial infarction <Dasia Walsh APRN - Last Filed: 10/30/24 03:03> Lab Data Attestation: I reviewed the patient's lab results. <Dasia Walsh APRN - Last Filed: 10/30/24 03:03> Result diagrams: 10/29/24 16:12 10/29/24 16:12 <Joann Morrow PA-C - Last Filed: 10/29/24 16:10> Labs: Lab Results 10/29/24 10/29/24 10/29/24 Range/Units 16:12 16:13 20:07 WBC 10.3 H (4.5-10.0) K/mm3 RBC 4.02 L (4.6-6.20) M/mm3 Hgb 11.5 L (14.0-18.0) g/dL Hct 36.8 L (42.0-52.0) % MCV 91.5 (80-100) fl MCH 28.6 (26-34) pg MCHC 31.3 L (32-36) g/dl RDW 16.0 H (11.5-14.5) % Plt Count 195 (150-375) k/mm3 MPV 10.1 (7.4-10.4) fl Immature Gran % (Auto) 0.2 (0-0.5) % Neut % (Auto) 66.9 (45.5-73.1) % Lymph % (Auto) 17.8 L (18.3-44.2) % Callahan % (Auto) 11.1 H (2.6-8.5) % Eos % (Auto) 3.4 (0-4.4) % Baso % (Auto) 0.6 (0.2-1.2) % Lymph # (Auto) 1.82 (0.9-3.2) K/mm3 Callahan # (Auto) 1.1 H (0.1-0.6) K/mm3 Eos # (Auto) 0.4 H (0-0.3) K/mm3 Baso # (Auto) 0.1 (0.0-0.1) K/mm3 Abs Immat Gran (auto) 0.02 (0.00-0.031) K/mm3 Absolute Neuts (auto) 6.9 H (1.3-6.7) K/mm3 Absolute Nucleated RBC 0.000 (0.0-0.012) K/mm3 Nucleated RBC % 0.0 (0.0-0.2) % PT 14.0 (11.1-14.7) Seconds INR 1.1 APTT 33.3 (22.3-36.8) Seconds Sodium 138 (137-145) mmol/L Potassium 3.8 (3.4-5.0) mmol/L Chloride 104 (98-107) mmol/L Carbon Dioxide 26 (22-30) mmol/L Anion Gap 8 (4-12) mmol/L BUN 30 H (9-20) mg/dL Creatinine 4.42 H (0.7-1.3) mg/dL Estim Creat Clear Calc 15 ml/min Estimated GFR 13 L (59 - ) Glucose 138 H (65-110) mg/dL Calcium 7.6 L (8.4-10.2) mg/dL Total Bilirubin 0.7 (0.2-1.3) mg/dL AST 24 (17-59) U/L ALT 12 (6-50) U/L Alkaline Phosphatase 77 (38-126) U/L Troponin I 0.015 0.018 (0.000-0.034) ng/mL NT-Pro-B Natriuret Pep 76448 H (19.9-100) pg/mL Total Protein 7.0 (6.3-8.2) g/dL Albumin 3.8 (3.5-5.1) g/dL Lipase 37 (23-300) U/L / Range/Units 22:12 WBC (4.5-10.0) K/mm3 RBC (4.6-6.20) M/mm3 Hgb (14.0-18.0) g/dL Hct (42.0-52.0) % MCV (80-100) fl MCH (26-34) pg MCHC (32-36) g/dl RDW (11.5-14.5) % Plt Count (150-375) k/mm3 MPV (7.4-10.4) fl Immature Gran % (Auto) (0-0.5) % Neut % (Auto) (45.5-73.1) % Lymph % (Auto) (18.3-44.2) % Callahan % (Auto) (2.6-8.5) % Eos % (Auto) (0-4.4) % Baso % (Auto) (0.2-1.2) % Lymph # (Auto) (0.9-3.2) K/mm3 Callahan # (Auto) (0.1-0.6) K/mm3 Eos # (Auto) (0-0.3) K/mm3 Baso # (Auto) (0.0-0.1) K/mm3 Abs Immat Gran (auto) (0.00-0.031) K/mm3 Absolute Neuts (auto) (1.3-6.7) K/mm3 Absolute Nucleated RBC (0.0-0.012) K/mm3 Nucleated RBC % (0.0-0.2) % PT (11.1-14.7) Seconds INR APTT (22.3-36.8) Seconds Sodium (137-145) mmol/L Potassium (3.4-5.0) mmol/L Chloride (98-107) mmol/L Carbon Dioxide (22-30) mmol/L Anion Gap (4-12) mmol/L BUN (9-20) mg/dL Creatinine (0.7-1.3) mg/dL Estim Creat Clear Calc ml/min Estimated GFR (59 - ) Glucose (65-110) mg/dL Calcium (8.4-10.2) mg/dL Total Bilirubin (0.2-1.3) mg/dL AST (17-59) U/L ALT (6-50) U/L Alkaline Phosphatase (38-126) U/L Troponin I 0.020 (0.000-0.034) ng/mL NT-Pro-B Natriuret Pep (19.9-100) pg/mL Total Protein (6.3-8.2) g/dL Albumin (3.5-5.1) g/dL Lipase (23-300) U/L <Joann Morrow PA-C - Last Filed: 10/29/24 16:10> Lab Results 10/29/24 10/29/24 10/29/24 Range/Units 16:12 16:13 20:07 WBC 10.3 H (4.5-10.0) K/mm3 RBC 4.02 L (4.6-6.20) M/mm3 Hgb 11.5 L (14.0-18.0) g/dL Hct 36.8 L (42.0-52.0) % MCV 91.5 (80-100) fl MCH 28.6 (26-34) pg MCHC 31.3 L (32-36) g/dl RDW 16.0 H (11.5-14.5) % Plt Count 195 (150-375) k/mm3 MPV 10.1 (7.4-10.4) fl Immature Gran % (Auto) 0.2 (0-0.5) % Neut % (Auto) 66.9 (45.5-73.1) % Lymph % (Auto) 17.8 L (18.3-44.2) % Callahan % (Auto) 11.1 H (2.6-8.5) % Eos % (Auto) 3.4 (0-4.4) % Baso % (Auto) 0.6 (0.2-1.2) % Lymph # (Auto) 1.82 (0.9-3.2) K/mm3 Callahan # (Auto) 1.1 H (0.1-0.6) K/mm3 Eos # (Auto) 0.4 H (0-0.3) K/mm3 Baso # (Auto) 0.1 (0.0-0.1) K/mm3 Abs Immat Gran (auto) 0.02 (0.00-0.031) K/mm3 Absolute Neuts (auto) 6.9 H (1.3-6.7) K/mm3 Absolute Nucleated RBC 0.000 (0.0-0.012) K/mm3 Nucleated RBC % 0.0 (0.0-0.2) % PT 14.0 (11.1-14.7) Seconds INR 1.1 APTT 33.3 (22.3-36.8) Seconds Sodium 138 (137-145) mmol/L Potassium 3.8 (3.4-5.0) mmol/L Chloride 104 (98-107) mmol/L Carbon Dioxide 26 (22-30) mmol/L Anion Gap 8 (4-12) mmol/L BUN 30 H (9-20) mg/dL Creatinine 4.42 H (0.7-1.3) mg/dL Estim Creat Clear Calc 15 ml/min Estimated GFR 13 L (59 - ) Glucose 138 H (65-110) mg/dL Calcium 7.6 L (8.4-10.2) mg/dL Total Bilirubin 0.7 (0.2-1.3) mg/dL AST 24 (17-59) U/L ALT 12 (6-50) U/L Alkaline Phosphatase 77 (38-126) U/L Troponin I 0.015 0.018 (0.000-0.034) ng/mL NT-Pro-B Natriuret Pep 23063 H (19.9-100) pg/mL Total Protein 7.0 (6.3-8.2) g/dL Albumin 3.8 (3.5-5.1) g/dL Lipase 37 (23-300) U/L 05/27/25 Range/Units 22:12 WBC (4.5-10.0) K/mm3 RBC (4.6-6.20) M/mm3 Hgb (14.0-18.0) g/dL Hct (42.0-52.0) % MCV (80-100) fl MCH (26-34) pg MCHC (32-36) g/dl RDW (11.5-14.5) % Plt Count (150-375) k/mm3 MPV (7.4-10.4) fl Immature Gran % (Auto) (0-0.5) % Neut % (Auto) (45.5-73.1) % Lymph % (Auto) (18.3-44.2) % Callahan % (Auto) (2.6-8.5) % Eos % (Auto) (0-4.4) % Baso % (Auto) (0.2-1.2) % Lymph # (Auto) (0.9-3.2) K/mm3 Callahan # (Auto) (0.1-0.6) K/mm3 Eos # (Auto) (0-0.3) K/mm3 Baso # (Auto) (0.0-0.1) K/mm3 Abs Immat Gran (auto) (0.00-0.031) K/mm3 Absolute Neuts (auto) (1.3-6.7) K/mm3 Absolute Nucleated RBC (0.0-0.012) K/mm3 Nucleated RBC % (0.0-0.2) % PT (11.1-14.7) Seconds INR APTT (22.3-36.8) Seconds Sodium (137-145) mmol/L Potassium (3.4-5.0) mmol/L Chloride (98-107) mmol/L Carbon Dioxide (22-30) mmol/L Anion Gap (4-12) mmol/L BUN (9-20) mg/dL Creatinine (0.7-1.3) mg/dL Estim Creat Clear Calc ml/min Estimated GFR (59 - ) Glucose (65-110) mg/dL Calcium (8.4-10.2) mg/dL Total Bilirubin (0.2-1.3) mg/dL AST (17-59) U/L ALT (6-50) U/L Alkaline Phosphatase (38-126) U/L Troponin I 0.020 (0.000-0.034) ng/mL NT-Pro-B Natriuret Pep (19.9-100) pg/mL Total Protein (6.3-8.2) g/dL Albumin (3.5-5.1) g/dL Lipase (23-300) U/L <Dasia Walsh APRN - Last Filed: 10/30/24 03:03> Imaging Data Attestation: I personally reviewed and interpreted this imaging study as follows: < Dasia Walsh APRN - Last Filed: 10/30/24 03:03> Radiologist's impression: CT scan indicates no focal consolidation pleural effusion or pneumothorax in lungs. Atelectasis at lung bases. Cardiomegaly. Sternotomy wires. Atherosclerotic changes. Dialysis catheter terminates in SVC. Hepatic steatosis. Cholelithiasis. Calcified splenic granulomas. Mild splenomegaly. < Dasia Walsh APRN - Last Filed: 10/30/24 03:03> Discharge Plan Discharge Clinical Impression: Atypical chest pain <BIJU Chiang Last Filed: 10/29/24 16:10> Patient Disposition: Home <BIJU Chiang Last Filed: 10/29/24 16:10> Condition: Guarded Prognosis <BIJU Chiang Last Filed: 10/29/24 16:10> Instructions: Antibiotic Form, Chest Pain (ED) <BIJU Chiang Last Filed: 10/29/24 16:10> Additional Instructions: Please return to the ER with any worsening symptoms. Follow-up with primary care provider and your copy manager as soon as possible. Take all medications as prescribed, including regularly scheduled medications. <BIJU Chiang Last Filed: 10/29/24 16:10> Patient Language: Occitan <BIJU Chiang Last Filed: 10/29/24 16:10> Prescriptions: No Action hydrocodone-acetaminophen 5-325 mg tablet 1 tablet PO Q6H PRN (Reason: pain) Qty: 12 0RF docusate sodium [Colace] 100 mg capsule 100 mg PO BID Qty: 14 0RF hydralazine 100 mg tablet 100 mg PO BID Qty: 180 3RF <Joann Morrow PA-C - Last Filed: 10/29/24 16:10> Follow-up/Referrals: Gerard Mo MD [Physician] - <Joann Morrow PA-C - Last Filed: 10/29/24 16:10> Time of Disposition: 03:03 <Joann Morrow PA-C - Last Filed: 10/29/24 16:10> 03:03 <Dasia Walsh APRN - Last Filed: 10/30/24 03:03>
[2024-10-29 16:20] LABS: Basophils Absolute Auto 0.1 K/mm3 (0.0-0.1); Basophils Percent Auto 0.6 % (0.2-1.2); Eosinophils Absolute Auto 0.4 K/mm3 (0-0.3); Eosinophils Percent Auto 3.4 % (0-4.4); Hematocrit 36.8 % (42.0-52.0); Hemoglobin 11.5 g/dL (14.0-18.0); Immature Granulocyte Absolute 0.02 K/mm3 (0.00-0.031); Immature Granulocyte Percent A 0.2 % (0-0.5); Lymphocytes Absolute Auto 1.82 K/mm3 (0.9-3.2); Lymphocytes Percent Auto 17.8 % (18.3-44.2); Mean Corpuscular HGB Conc 31.3 g/dl (32-36); Mean Corpuscular Hemoglobin 28.6 pg (26-34); Mean Corpuscular Volume 91.5 fl (80-100); Mean Platelet Volume 10.1 fl (7.4-10.4); Monocytes Absolute Auto 1.1 K/mm3 (0.1-0.6); Monocytes Percent Auto 11.1 % (2.6-8.5); Neutrophils Absolute Auto 6.9 K/mm3 (1.3-6.7); Neutrophils Percent Auto 66.9 % (45.5-73.1); Platelet Count Result 195 k/mm3 (150-375); Red Blood Count 4.02 M/mm3 (4.6-6.20); White Blood Count 10.3 K/mm3 (4.5-10.0)
[2024-10-29 16:31] LABS: INR 1.1
[2024-10-29 16:31] LABS: Alanine Aminotransferase 12 U/L (6-50); Albumin Level 3.8 g/dL (3.5-5.1); Alkaline Phosphatase 77 U/L (38-126); Anion Gap 8 mmol/L (4-12); Aspartate Amino Transferase 24 U/L (17-59); Bilirubin,Total 0.7 mg/dL (0.2-1.3); Blood Urea Nitrogen 30 mg/dL (9-20); Calcium 7.6 mg/dL (8.4-10.2); Carbon Dioxide 26 mmol/L (22-30); Chloride 104 mmol/L (98-107); Estimated CRCL calculation 15 ml/min; Estimated Glomerular Filt Rate 13; Glucose 138 mg/dL (65-110); Lipase 37 U/L (23-300); Potassium 3.8 mmol/L (3.4-5.0); Sodium 138 mmol/L (137-145)
[2024-10-29 16:32] LABS: Partial Thromboplastin Time 33.3 Seconds (22.3-36.8)
[2024-10-29 16:44] LABS: Troponin I 0.015 ng/mL (0.000-0.034)
[2024-10-29 16:46] LABS: NT Pro B Type Natriuretic Pept 12200 pg/mL (19.9-100)
--- NOTE | 2024-10-29 20:01 | ECG_ITS ---
Test Date: 2024-10-29 16:05:15 Measurements Intervals [place] Rate: 66 P: 46 MA: 175 QRS: 45 QRSD: 95 T: 126 QT: 435 QTc: 459 Interpretive Statements SINUS RHYTHM WITH FREQUENT VENTRICULAR PREMATURE COMPLEXES ST DEVIATION AND MODERATE T-WAVE ABNORMALITY, CONSIDER ANTEROLATERAL ISCHEMIA [-0.1+ mV T WAVE IN V3-V6] Compared to ECG 09/05/2024 13:51:57 Ventricular premature complex(es) now present T-wave abnormality now present Possible ischemia now present Incomplete right bundle-branch block no longer present Electronically Signed On 10-30-2024 16:31:08 CDT by Horacio Schumacher M.D.
[2024-10-29 20:39] LABS: Troponin I 0.018 ng/mL (0.000-0.034)
--- OUTSIDE RECORDS SUMMARY | 2024-10-29 22:08 | XMS_ITS ---
Author Organization [facility] Address [address] [place] [address] Care Team Providers Care Data Specialist Name Role Phone Marcella Taylor MD Unavailable Anselmo Sampson MD Primary Care Provider [phone] Godfrey Villarreal MD Unavailable [phone] Active Problems Problem Noted Date Diagnosed Date End stage renal disease on dialysis 10/14/2024 ESRD (end stage renal disease) on dialysis 08/27 ESRD (end stage renal disease) 07/11/2024 Assessment & Plan (07/14/2024 9:38 AM ROTARY OPERATOR): Patient has had progression of CKD to now ESRD needing dialysis initiation given c/f uremia symptoms. Directly admitted per renal. Underwent tunneled dialysis catheter by IR on 07/12 and received HD on 07/12 and 07/13 -Hemodialysis as per Nephrology -Continue home bicarb URI (upper respiratory infection) 07/11/2024 Assessment & Plan (07/12/2024 12:59 PM ROTARY OPERATOR): Suspected viral. COVID/flu/RSV neg 07/09. CXR neg 07/10. Was prescribed azithromycin on 07/09 which he took for 3 days. Will not continued further -Supportive care Hypomagnesemia 01/02/2024 CKD (chronic kidney disease) stage 4, GFR 15-29 ml/min 04/16/2023 Assessment & Plan (07/25/2023 10:06 AM ROTARY OPERATOR): Chronic problem. Managed by Dr Flores. Has f/u appt at end of the month. Assessment & Plan (04/16/2023 8:48 PM ROTARY OPERATOR): Chronic, stable Following with Operations Planner Acute kidney injury 02/24/2023 (HFpEF) heart failure with preserved ejection fr action 02/24/2023 Assessment & Plan (02/24/2023 3:38 PM CDT): TTE with EF 77% and at least grade 1 diastolic dysfunction (indeterminate on last TTE). Not in exacerbation -Cont home lasix 40mg -strict I&Os, daily weights -F/u with OSH [facility] [employer] Specialist Dr. Payton CAD (coronary artery disease) 02/24/2023 Assessment & Plan (02/24/2023 3:38 PM CDT): S/p prior 5v CABG in 2012 -Cont statin and coreg -Intolerant of PATI-I/ARB due to worsening renal function -ASA held due to procedure -F/u with Cardiology outpatient Hyperlipidemia associated with type 2 diabetes aimee ullao 02/24/2023 Assessment & Plan (07/11/2024 9:32 PM ROTARY OPERATOR): -Continue home welchol -Atorvastatin for home pitavastatin (non-formulary) Assessment & Plan (05/13/2024 9:10 AM ROTARY OPERATOR): Continue statin therapy Assessment & Plan (11/16/2023 11:18 AM CDT): Chronic problem. Currently taking Pitavatatin 4mg daily. Last lipid panel: 02/24/23 LDL=76, UX=135. Assessment & Plan (07/25/2023 10:22 AM ROTARY OPERATOR): Chronic problem. Currently taking Pitavatatin 4mg daily. Last lipid panel: 02/24/23 LDL=76, KR=179. Assessment & Plan (04/16/2023 8:46 PM ROTARY OPERATOR): On Pitavastatin therapy Tolerating well Assessment & Plan (02/24/2023 3:39 PM CDT): Cont statin and colesevelam Type 2 diabetes mellitus wit h stage 4 chronic kidney disease, with long-term current use of insulin 02/24/2023 Assessment & Plan (07/11/2024 9:31 PM ROTARY OPERATOR): F/b endo. Home regimen: tresiba 5U QHS, aspart 6-8U TID with meals Pt/ report issues with hypoglycemia lately at home. -Will start with SSI for now; titrate/add scheduled insulin pending glucose trends Assessment & Plan (05/13/2024 9:10 AM ROTARY OPERATOR): Chronic, uncontrolled, worsening Hemoglobin A1c 6.8 A1c [...] soon Daily foot care Advise to call [employer] and get the dexcom G 6 sensor to switch to G7 Check labs today Follow-up in 6 months Assessment & Plan (11/16/2023 11:17 AM CDT): Chronic problem. A1c stable at 6.1% but having overnight lows & occasionally lows after LN. Call your supply [employer] to switch from Dexcom G6 to Dexcom G7. Lower tresiba to 6 units nightly. If you notice that your over night readings are too high--start to increase by 1 unit weekly until they return to normal. If you're eating a rn ante partum lunch--drop the Fiasp to 6 units. Current medications: Tresiba 6 units at bedtime Fiasp 4 units with breakfast & dinner, 8 units with lunch (6 units if rn ante partum lunch) If blood sugar is between 151-200, add 1 units. If blood sugar is between 201-250, add 2 units. If blood sugar is between 251-300, add 3 units. If blood sugar is between 301-350, add 4 units. UTD on DM eye exam (06/15/23 at [facility]). UTD on labs. Discussed [...] infection. Assessment & Plan (07/25/2023 10:02 AM ROTARY OPERATOR): Chronic problem. A1c stable at 6.1% but having overnight lows & occasionally lows after LN. Call your supply company to switch from Dexcom G6 to Dexcom G7. Lower tresiba to 6 units nightly. If you notice that your over night readings are too high--start to increase by 1 unit weekly until they return to normal. If you're eating a rn ante partum lunch--drop the Fiasp to 6 units. Current medications: Tresiba 6 units at bedtime Fiasp 4 units with breakfast & dinner, 8 units with lunch (6 units if rn ante partum lunch) If blood sugar is between 151-200, add 1 units. If blood sugar is between 201-250, add 2 units. If blood sugar is between 251-300, add 3 units. If blood sugar is between 301-350, add 4 units. DM eye exam 06/2023 at [facility]. Letter sent to get [...] infection. Assessment & Plan (04/16/2023 8:47 PM ROTARY OPERATOR): Chronic , improving overall hyperglycemia but now [...] TID +SSI; adjust PRN -F/u with OSH independent living specialist Proteinuria 02/24/2023 Assessment & Plan (02/25/2023 7:46 [...] 11/04/2021 Assessment & Plan (07/12/2024 12:57 PM ROTARY OPERATOR): Getting aranesp outpatient -Trend CBC -Transfuse PRN [...] 11/04/2021 Assessment & Plan (07/11/2024 9:30 PM ROTARY OPERATOR): -Continue home amlodipine, hydralazine, coreg Assessment & Plan (05/13/2024 9:11 AM ROTARY OPERATOR): Chronic, fairly controlled for pt age Continue amlodipine Managed by nephrology Assessment & Plan (11/16/2023 11:18 AM CDT): Chronic problem. Controlled on current Carvedilol 25mg bid, amlodipine 10mg daily, lasix 20mg daily. not taking hydralazine currently Assessment & Plan (07/25/2023 10:05 AM ROTARY OPERATOR): Chronic problem. Controlled on current Carvedilol 25mg bid, amlodipine 10mg daily, lasix 20mg daily. 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
--- OUTSIDE RECORDS SUMMARY | 2024-10-29 22:08 | XMS_ITS | Encounter Summary ---
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 Gender Identity Not on file Sexual Orientation Not on file documented as of this encounter Plan of Treatment Upcoming Encounters Date Type Department Care Team (Latest Contact Info) Description 11/04/2024 12:00 PM CDT Hospital Encounter [facility] Operating Room [address] [place] [address] Godfrey Villarreal MD [address] [facility] [address] [place] [address] 11/04/2024 12:00 PM CDT Anesthesia Event [facility] Operating Room [address] [place] [address] Maryjo Galicia, TEACHER [employer] [address] [place] [address] 11/04/2024 12:00 PM CDT - 11/04/2024 3:05 PM CDT Surgery [facility] Operating [address] [place] [address] Godfrey Villarreal MD [address] [facility] [address] [place] [address] CREATION ARTERIOVENOUS FISTULA - ARM-brachialcephalic Scheduled Procedures Name Priority Associated Diagnoses Date/Ti me CREATION ARTERIOVENOUS FISTULA - ARM 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) 11/04/2024 12:00 PM CDT REVISION ARTERIOVENOUS FISTULA - ARM End stage renal disease on dialysis ([facility]) 11/04/2024 12:00 PM CDT documented as [...] COVID: Suspected 07/09/2024 07/09/2024 07/09/2024 11:36 AM WINDING DEPARTMENT SUPERVISOR COVID: Suspected 07/09/2024 07/09/2024 07/09/2024 4:05 PM WINDING DEPARTMENT SUPERVISOR documented as of this encounter Care Teams Automobile Accessories Installer Relationship Specialty [place] [address] [place] [phone] PCP - General Family Practice 04/26/22 Marcella Taylor MD [address] [place] [address] [address] [place] [address] Medical Oncologist/Investment Executive Medical Oncology 08/08/20 Godfrey Villarreal MD [address] [facility] [address] [place] [address] Surgeon Vascular Surgery 09/20/24 documented as of this encounter
--- OUTSIDE RECORDS SUMMARY | 2024-10-29 22:08 | XMS_ITS | Encounter Summary ---
Author Organization [facility] Address [address] [place] [address] Phone Care Team Providers Care Welder Tech Name Role Phone Marcella Taylor MD Unavailable Anselmo Sampson MD Primary Care Provider [phone] Godfrey Villarreal MD Unavailable [phone] Encounter Details Date Type Department Care Team (Latest Contact Info) Description 10/16/2024 Results Follow-Up [facility] Oncology [address] [place] [address] Jose Antonio Gamble Lactate dehydrogenase (LD), Comprehensive [...] on file 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 Gender Identity Not on file Sexual Orientation [...] Description 11/04/2024 12:00 PM CDT Hospital Encounter [facility] Operating Room [address] [place] [address] Godfrey Villarreal MD [address] [facility] [address] [place] [address] 11/04/2024 12:00 PM CDT Anesthesia Event [facility] Operating Room [address] [place] [id number] Maryjo Galicia NP [address] [place] [address] 11/04/2024 12:00 PM CDT - 11/04/2024 3:05 PM CDT Surgery [facility] Operating Room 1 [facility] [place] [address] Godfrey Villarreal MD [address] [facility] [address] [place] [address] CREATION ARTERIOVENOUS FISTULA - ARM-brachialcephalic Scheduled Procedures Name Priority Associated Diagnoses Date/Ti me CREATION ARTERIOVENOUS FISTULA - ARM 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) 11/04/2024 12:00 PM CDT REVISION ARTERIOVENOUS FISTULA - ARM 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) 11/04/2024 12:00 PM CDT documented as of this encounter Visit Diagnoses Not on filedocumented in this encounter Care Teams Welder Tech Relationship Specialty [place] [address] [address] PCP - General Family Practice 04/26/22 Marcella Taylor MD [address] [place] [address] [address] [place] [address] Medical Oncologist/Wash Driller Helper Medical Oncology 08/08/20 Godfrey Villarreal MD [address] [facility] [address] [place] [address] Surgeon Vascular Surgery 09/20/24 documented as of this encounter
--- OUTSIDE RECORDS SUMMARY | 2024-10-29 22:08 | XMS_ITS | Encounter Summary ---
Author Organization 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 Operating Room [address] [place] [address] Godfrey Villarreal MD [address] [facility] [id number] [place] [address] 11/04/2024 12:00 PM CDT Anesthesia Event [facility] [address] [place] [address] Maryjo Galicia, MANAGEMENT ARCHITECT [address] [place] [address] 11/04/2024 12:00 PM CDT - 11/04/2024 3:05 PM CDT Surgery [facility] Operating [address] [place] [address] Godfrey Villarreal MD [address] [facility] [address] [place] [address] CREATION ARTERIOVENOUS FISTULA - ARM-brachialcephalic Scheduled Procedures Name Priority Associated Diagnoses Date/Ti me CREATION ARTERIOVENOUS FISTULA - ARM 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) 11/04/2024 12:00 PM CDT REVISION ARTERIOVENOUS FISTULA - ARM End stage renal disease on dialysis ([facility]) 11/04/2024 12:00 PM CDT documented [...] COVID: Suspected 07/09/2024 07/09/2024 07/09/2024 11:36 AM FUSE CUP EXPANDER COVID: Suspected 07/09/2024 07/09/2024 07/09/2024 4:05 PM FUSE CUP EXPANDER documented as of this encounter Care Teams Desktop Publishing Operator Relationship Specialty [place] [address] [place] [phone] PCP - General Family Practice 04/26/22 Marcella Taylor MD [address] [place] [address] [address] [place] [address] Medical Oncologist/Plant And Maintenance Technician Medical Oncology 08/08/20 Godfrey Villarreal MD [address] [facility] [address] [place] [address] Surgeon Vascular Surgery 09/20/24 documented as of this encounter
--- OUTSIDE RECORDS SUMMARY | 2024-10-29 22:09 | XMS_ITS | Referral Summary ---
Author Organization [facility] Address [address] [place] [address] Care Team Providers Care Transportation Economics Teacher Name Role Phone Marcella Taylor MD Unavailable Anselmo Sampson MD Primary Care Provider [phone] Godfrey Villarreal MD Unavailable [phone] Encounters Date Type Department Care Team Description 10/16/2024 Results Follow-Up [facility] [address] [place] [phone] Jose Antonio Gamble Lactate dehydrogenase (LD), Comprehensive metabolic panel, CBC with auto differential, Additional followed-up results: 3 10/16/2024 11:00 AM CDT Office Visit [facility] [address] [place] [phone] Ekaterina Chanel NP Low vitamin B12 level (Primary Dx); GIST (gastrointestinal stroma tumor), malignant, colon (HCC); 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) 10/16/2024 10:30 AM CDT Lab [address] [address] GIST (gastrointestinal stroma tumor), malignant, colon (HCC); 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); Low vitamin B12 level 10/16/2024 8:39 AM CDT - 10/16/2024 11:59 PM CDT Hospital Encounter [facility] [address] [place] [address] Discharge Disposition: Discharge to home or self care 10/16/2024 7:18 AM CDT - 10/16/2024 11:59 PM CDT Hospital Encounter [facility] [address] [place] [address] GIST (gastrointestinal stroma tumor), malignant, colon (HCC); 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) Discharge Disposition: Discharge to home or self care 10/14/2024 10:30 AM CDT Office Visit [facility] Building [address] [place] [phone] Godfrey Villarreal MD ESRD (end stage renal disease) (HCC) (Primary Dx); Encounter for surgical aftercare following surgery on the circulatory system 10/11/2024 11:00 AM CDT Ancillary Procedure [facility] Lab Vascular Surgery [address] [place] [address] [address] [facility] [place] [place] [address] End stage renal disease (HCC) 10/09/2024 Orders Only [facility] [address] [place] [address] Jose Antonio Gamble 10/09/2024 Telephone [facility] [address] [place] [phone] Matt Nicholson MD 09/20/2024 Orders Only [facility] Surgery [address] [place] [address] [address] [place] [phone] Godfrey Villarreal MD End stage renal disease (HCC) (Primary Dx) 09/20/2024 7:30 AM CDT - 09/20/2024 10:40 AM CDT Surgery [facility] Operating Room [address] [place] [address] Godfrey Villarreal MD CREATION 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 09/20/2024 7:24 AM CDT Anesthesia Event [facility] Room [address] [place] [address] Joshua Rodgers MD Gangloff, Kerry Marie, NP 09/20/2024 5:44 AM CDT - 09/20/2024 11:38 AM CDT Hospital Encounter [facility] Operating Room [address] [place] [address] Godfrey Villarreal MD ESRD (end stage renal disease) on dialysis (HCC) (Primary Dx) Discharge Disposition: Discharge to home or self care 09/19/2024 Telephone [facility] Surgery [address] [place] [address] Medical Office Building [address] [place] [address] Godfrey Villarreal MD 08/27/2024 Telephone [facility] [address] [facility] Floor 1 [place] [address] Godfrey Villarreal MD 08/26/2024 Telephone [facility] Surgery [address] [place] [address] Floor 1 [place] [address] Godfrey Villarreal MD 08/14/2024 11:30 AM CDT Lab [address] [address] GIST (gastrointestinal stroma tumor), malignant, colon (HCC); 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 08/12/2024 9:45 AM CDT Office Visit [facility] Surgery [address] [facility] Medical Office Building 3 [address] [place] [phone] Godfrey Villarreal MD ESRD (end stage renal disease) (HCC) (Primary Dx) 08/12/2024 8:45 AM CDT Ancillary Procedure [facility] Vascular Lab Vascular Surgery [facility] [address] [place] [address] ESRD (end stage renal disease) (HCC) from [...] (two) times a day with meals Active dxrutms-qostxgjya-s inc 333-133-5 mg tabletIndications:V itamin Deficiency Prevention [...] coma, with long-term current use of insulin ([facility]) Use daily or as directed for monitoring [...] 1 tablet (4 mg total) by mouth water pipe installer before breakfast 2023 Active cyanocobalamin (Vitamin B-12) [...] 07/11/2024 Assessment & Plan (07/14/2024 9:38 AM GENERAL PRACTITIONER): Patient has had progression of CKD to now ESRD needing dialysis initiation given c/f uremia symptoms. Directly admitted per renal. Underwent tunneled dialysis catheter by IR on 07/12 and received HD on 07/12 and 07/13 -Hemodialysis as per Nephrology -Continue home bicarb URI (upper respiratory infection) 07/11/2024 Assessment & Plan (07/12/2024 12:59 PM GENERAL PRACTITIONER): Suspected viral. COVID/flu/RSV neg 07/09. CXR neg 07/10. Was prescribed azithromycin on 07/09 which he took for 3 days. Will not continued further -Supportive care Hypomagnesemia 01/02/2024 CKD (chronic kidney disease) stage 4, GFR 15-29 ml/min 04/16/2023 Assessment & Plan (07/25/2023 10:06 AM GENERAL PRACTITIONER): Chronic problem. Managed by Dr Flores. Has f/u appt at end of the month. Assessment & Plan (04/16/2023 8:48 PM GENERAL PRACTITIONER): Chronic, stable Following with Rod Piler Acute kidney injury 02/24/2023 (HFpEF) heart failure with preserved ejection fr action 02/24/2023 Assessment & Plan (02/24/2023 3:38 PM CDT): TTE with EF 77% and at least grade 1 diastolic dysfunction (indeterminate on last TTE). Not in exacerbation -Cont home lasix 40mg -strict I&Os, daily weights -F/u with OSH Editor At Large Dr. Payton CAD (coronary artery disease) 02/24/2023 Assessment & Plan (02/24/2023 3:38 PM CDT): S/p prior 5v CABG in 2012 -Cont statin and coreg -Intolerant of PATI-I/ARB due to worsening renal function -ASA held due to procedure -F/u with Cardiology outpatient Hyperlipidemia associated with type 2 diabetes aimee ulloa 02/24/2023 Assessment & Plan (07/11/2024 9:32 PM GENERAL PRACTITIONER): -Continue home welchol -Atorvastatin for home pitavastatin (non-formulary) Assessment & Plan (05/13/2024 9:10 AM GENERAL PRACTITIONER): Continue statin therapy Assessment & Plan (11/16/2023 11:18 AM CDT): Chronic problem. Currently taking Pitavatatin 4mg daily. Last lipid panel: 02/24/23 LDL=76, TB=578. Assessment & Plan (07/25/2023 10:22 AM GENERAL PRACTITIONER): Chronic problem. Currently taking Pitavatatin 4mg daily. Last lipid panel: 02/24/23 LDL=76, OO=863. Assessment & Plan (04/16/2023 8:46 PM GENERAL PRACTITIONER): On Pitavastatin therapy Tolerating well Assessment & Plan (02/24/2023 3:39 PM CDT): Cont statin and colesevelam Type 2 diabetes mellitus wit h stage 4 chronic kidney disease, with long-term current use of insulin 02/24/2023 Assessment & Plan (07/11/2024 9:31 PM GENERAL PRACTITIONER): F/b endo. Home regimen: tresiba 5U QHS, aspart 6-8U TID with meals Pt/ report issues with hypoglycemia lately at home. -Will start with SSI for now; titrate/add scheduled insulin pending glucose trends Assessment & Plan (05/13/2024 9:10 AM GENERAL PRACTITIONER): Chronic, uncontrolled, worsening Hemoglobin A1c 6.8 A1c [...] soon Daily foot care Advise to call [employer] and get the dexcom G 6 sensor to switch to G7 Check labs today Follow-up in 6 months Assessment & Plan (11/16/2023 11:17 AM CDT): Chronic problem. A1c stable at 6.1% but having overnight lows & occasionally lows after LN. Call your [employer] to switch from Dexcom G6 to Dexcom G7. Lower tresiba to 6 units nightly. If you notice that your over night readings are too high--start to increase by 1 unit weekly until they return to normal. If you're eating a mechanical maintenance technician lunch--drop the Fiasp to 6 units. Current medications: Tresiba 6 units at bedtime Fiasp 4 units with breakfast & dinner, 8 units with lunch (6 units if mechanical maintenance technician lunch) If blood sugar is between 151-200, add 1 units. If blood sugar is between 201-250, add 2 units. If blood sugar is between 251-300, add 3 units. If blood sugar is between 301-350, add 4 units. UTD on DM eye exam (06/15/[address] [facility]). UTD on labs. Discussed with José Luis [...] infection. Assessment & Plan (07/25/2023 10:02 AM GENERAL PRACTITIONER): Chronic problem. A1c stable at 6.1% but having overnight lows & occasionally lows after LN. Call your supply company to switch from Dexcom G6 to Dexcom G7. Lower tresiba to 6 units nightly. If you notice that your over night readings are too high--start to increase by 1 unit weekly until they return to normal. If you're eating a mechanical maintenance technician lunch--drop the Fiasp to 6 units. Current medications: Tresiba 6 units at bedtime Fiasp 4 units with breakfast & dinner, 8 units with lunch (6 units if mechanical maintenance technician lunch) If blood sugar is between 151-200, add 1 units. If blood sugar is between 201-250, add 2 units. If blood sugar is between 251-300, add 3 units. If blood sugar is between 301-350, add 4 units. DM eye exam 06/[address] [facility]. Letter sent to get copy of report. [...] infection. Assessment & Plan (04/16/2023 8:47 PM GENERAL PRACTITIONER): Chronic , improving overall hyperglycemia but now [...] TID +SSI; adjust PRN -F/u with OSH turkey roll maker Proteinuria 02/24/2023 Assessment & Plan (02/25/2023 7:46 [...] 11/04/2021 Assessment & Plan (07/12/2024 12:57 PM GENERAL PRACTITIONER): Getting aranesp outpatient -Trend CBC -Transfuse PRN [...] 11/04/2021 Assessment & Plan (07/11/2024 9:30 PM GENERAL PRACTITIONER): -Continue home amlodipine, hydralazine, coreg Assessment & Plan (05/13/2024 9:11 AM GENERAL PRACTITIONER): Chronic, fairly controlled for pt age Continue amlodipine Managed by nephrology Assessment & Plan (11/16/2023 11:18 AM CDT): Chronic problem. Controlled on current Carvedilol 25mg bid, amlodipine 10mg daily, lasix 20mg daily. not taking hydralazine currently Assessment & Plan (07/25/2023 10:05 AM GENERAL PRACTITIONER): Chronic problem. Controlled on current Carvedilol 25mg bid, amlodipine 10mg daily, lasix 20mg daily. 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 021 GIST (gastrointestinal stroma tumor), malignant, colon 08/14/2020 Overview (08/14/2020): Added automatically from request for surgery [id number] Assessment & Plan (07/14/2024 9:38 AM GENERAL PRACTITIONER): Pt of Dr Taylor -Holding home ripretinib [...] on file Legal Sex Male 6:14 AM GENERAL PRACTITIONER Gender Identity Not on file Sexual Orientation [...] Description 11/04/2024 12:00 PM CDT Hospital Encounter [facility] Operating Room [address] [place] [address] Godfrey Villarreal MD [address] [facility] [address] [place] [address] 11/04/2024 12:00 PM CDT Anesthesia Event [facility] Operating Room [address] [place] [address] Maryjo Galicia, IRRIGATING PUMP OPERATOR [address] [place] [address] 11/04/2024 12:00 PM CDT - 11/04/2024 3:05 PM CDT Surgery [facility] Operating Room [address] [place] [address] Godfrey Villarreal MD [address] [facility] [address] [place] [address] CREATION ARTERIOVENOUS FISTULA - ARM-brachialcephalic Scheduled Procedures [...] Chamberlain, MARY Medical Devices Implanted Type Area Biotechnologist Device Identifier Shelf Expiration Date Model / Serial / Lot Stent- 8 Implanted:04/19 by [facility] - Carol jacob MD (Quantity not on file) Stent Heart Description:1.5 or 3 Nazia N ormal Mode Scan 15 rest 5 [employer] Duraflow Embosafe 15.5fr 28cm Basic 2 Lumen Kit Catheter [id number] - [id number] Implanted:Qty: 1 on 07/12/[address] [facility] [employer] 08/02/2026 [id number] / / [id number] Procedures Procedure Name Priority Date/Time Associated Diagnosis [...] DEVICE Routine 09/20/2024 9 :00 AM CDT VT AN PROCEDURE PLACEHOLDER Routine 09/20/2024 7:59 AM CDT VT AN ELECTIVE ENDOTRACHEAL AIRWAY Routine 09/20/2024 7:59 [...] 08/08/2024 HEMOGLOBIN A1C Timed 07/11/2024 9:14 PM GENERAL PRACTITIONER LIPID PANEL Routine 05/13/2024 9:16 AM GENERAL PRACTITIONER Type 2 diabetes mellitus with stage 4 chronic kidney disease, with long-term current use of insulin (HCC) Hyperlipidemia associated with type 2 diabetes mellitus (HCC) ALBUMIN CREATININE RATIO, URINE Routine 05/13/2024 9:16 AM GENERAL PRACTITIONER Type 2 diabetes mellitus with stage 4 [...] Resul t [facility] [place] [address] * Differential, auto (10/16/2024 10:22 AM CDT) Neutrophil abs 5.36 1.50 - 6.50 K/cumm Comment:Testing performed by : [facility], [address] [place] [address] Imm gran abs 0.08 0.00 - 0.10 [...] revised on 2017. Lymphocyte pct 18.7 % [facility] Comment: Interpretive Data Percent cell count reference ranges are not reported, since discordance with absolute values may lead to misinterpretation of CBC data. Current Interpretive Data was last revised on 2017. Monocyte pct 8.0 % [facility] Comment: Interpretive Data Percent cell count reference ranges are not reported, since discordance with absolute values may lead to misinterpretation of CBC data. Current Interpretive Data was last revised on 2017. Eosinophil pct 4.6 % [facility] Comment: Interpretive Data Percent cell count reference ranges are not reported, since discordance with absolute values may lead to misinterpretation of CBC data. Current Interpretive Data was last revised on 2017. Basophil pct 0.7 % [facility] Comment: Interpretive Data Percent cell count reference ranges are not reported, since discordance with absolute values may lead to misinterpretation of CBC data. Current Interpretive Data was last revised on 2017. Blood 10/16/2024 10:2 2 AM CDT 10/16/2024 10:22 AM CDT us Marcella Taylor MD LAB BLOOD ORDERABLES Final Resul t [facility] Department [place] [address] * (ABNORMAL) CBC with auto differential (10/16/2024 10:22 AM CDT) WBC 8.01 3.80 - 9.90 K/cumm Comment:Testing performed by : [address] [address] Hgb 11.2(L) 13.0 - 17.5 g/dL [facility] Comment:Testing performed by : [address] [address] Hct 34.4(L) 38.9 - 50.3 % [facility] Comment:Testing performed by : [address] [address] Plt 165 150 - 400 K/cumm [facility] Comment:Testing performed by : [address] [address] MPV 10.7 9.1 - 12.3 fL [facility] RBC 3.94(L) 4.30 - 5.80 M/cumm HOSPITAL [...] ORDERABLES Final Resul t Performing Organization Address [facility] Co de Phone Number [facility] [place] [address] * Lactate dehydrogenase (LD) (10/16/2024 10:22 AM CDT) Lactate dehydrogenase (LDH) 245 100 - 250 Units/L Comment:Testing performed by : [facility], [address] [place] [address] Blood 10/16/2024 10:2 2 AM CDT 10/16/2024 10:22 AM CDT Marcella Taylor MD LAB BLOOD ORDERABLES [place] [address] * (ABNORMAL) Comprehensive metabolic panel (10/16/2024 10:22 AM CDT) Sodium 138 135 - 145 mmol/L Comment:Testing performed by : [facility], [address] [facility] [address] Potassium, pl 4.6 3.3 - 4.9 mmol/L [...] Resul t [facility] [place] [address] * Vitamin B12 (10/16/2024 10:20 AM CDT) Vitamin B12 795 230 - 1,250 pg/mL Blood 10/16/2024 10:2 0 AM CDT 10/16/2024 1:49 PM CDT us Marcella Taylor MD LAB BLOOD ORDERABLES Final Resul t [facility] Department [place] [address] * PET/CT FDG Skull to Thigh (10/16/2024 [...] obtained. The study was interpreted on the [employer] workstation. The mean liver SUV (reported for quality assurance assistant purposes) is 2.4. The total scanned area [...] obtained. The study was interpreted on the [employer] workstation. The mean liver SUV (reported for quality assurance assistant purposes) is 2.4. The total scanned area [...] AM CDT Narrative 10/11/2024 1:44 PM CDT [facility] - Department of Vascular Surgery, Vascular Laboratory [address] [place] [address] Dialysis Access Fistula/Graft Duplex Report Patient Name: JOSÉ LUIS GAMBLE : 1945 (79y ) Gender: M Study Date: 10/11/2024 10:49:25 AM City Wellness Coordinator: GONZALO Location: [facility] Provider: GODFREY VILLARREAL Quality: Adequate Ref Provider: [...] Arm Diameter 0.46 cm Rt Deep Vein Marion 58.40 cm/s Rt Outflow Distal Arm Depth 0.27 cm Rt Axillary Vein PSV 58.20 cm/s Rt Outflow Mid Arm Diameter 0.38 cm Rt Subclavian Vein 26.60 cm/s Rt Outflow Mid Arm Depth 0.56 cm Rt Outflow Vein (Graft) Volume Flow Average 310 cc/min Rt Outflow Proximal Arm Diameter 0.43 cm Rt Outflow Proximal Arm Depth 0.71 cm Rt Deep Vein Marion Diameter 0.43 cm Rt Deep Vein Marion Depth 2.10 cm Rt Inflow Artery Diameter 0.53 cm Diameter/Depth Value Units Velocities Value Units FINDINGS: Performing City Wellness Coordinator: Jayda Dunn RVT. Minto Arterial Inflow Normal: No evidence of arterial [...] above. Electronically Signed By: Josias Cox MD [facility] [phone] 10/11/2024 1:30:12 PM CDT Procedure Note Josias Cox MD - 10/11/2024 [facility] - Department of Vascular Surgery,Vascular Laboratory [address] [place] [address] Dialysis Access Fistula/Graft Duplex Report Patient Name: JOSÉ LUIS GAMBLE : 1945 (79y ) Gender: M Study Date: 10/11/2024 10:49:25 AM City Wellness Coordinator: GONZALO Location: [facility] Order Provider: GODFREY VILLARREAL Quality: Adequate Ref [...] Arm Diameter 0.46 cm Rt Deep Vein Marion 58.40cm/s Rt Outflow Distal Arm Depth 0.27 cm Rt Axillary Vein PSV 58.20 cm/s Rt Outflow Mid Arm Diameter 0.38 cm Rt Subclavian Vein 26.60 cm/s Rt Outflow Mid Arm Depth 0.56 cm Rt Outflow Vein (Graft) Volume FlowAverage 310 cc/min Rt Outflow Proximal Arm Diameter 0.43 cm Rt Outflow Proximal Arm Depth 0.71 cm Rt Deep Vein Marion Diameter 0.43 cm Rt Deep Vein Marion Depth 2.10 cm Rt Inflow Artery Diameter 0.53 cm Diameter/Depth Value Units Velocities Value Units FINDINGS: Performing City Wellness Coordinator: Jayda Dunn RVT. Minto Arterial Inflow Normal: No evidence of arterial [...] above. Electronically Signed By: Josias Cox MD [facility] [phone] 10/11/2024 1:30:12 PM CDT Godfrey Villarreal MD IMG US PROCEDURES Final R esult * POCT glucose (09/20/2024 9:25 AM CDT) Glucose, POC 145 70 - 199 mg/dL Blood 09/20/2024 9:25 AM CDT 09/20/2024 9:25 AM CDT Godfrey Villarreal MD LAB POCT ORDERABLES - DEV ICE Final Result Performing Organization Address [facility] Co de Phone Number [facility] Department [place] [address] * POCT glucose (09/20/2024 9:00 AM CDT) Glucose, POC 133 70 - 199 mg/dL Blood 09/20/2024 9:00 AM CDT 09/20/2024 9:00 AM CDT Godfrey Villarreal MD LAB POCT ORDERABLES - DEV ICE Final Result Performing Organization Address [facility] de Phone Number [facility] Department [place] [address] * VT AN ELECTIVE ENDOTRACHEAL AIRWAY, VT AN PROCEDURE PLACEHOLDER (09/20/2024 7:59 AM CDT) Narrative Caridad Hernandez CRNA - 09/20/2024 7:59 AM CDT Caridad Hernandez CRNA 09/20/2024 8:00 AM Airway Patient location: OR Urgency: elective Date/time: 09/20/2024 7:36 AM Indications for airway management: anesthesia Difficult airway: no Staff: Supervising provider: Joshua Rodgers MD Placed by: BIOMEDICAL FIELD SERVICE ENGINEER: Caridad Hernandez CRNA Emergent airway documentation: Risks [...] POCT ORDERABLES - DEV ICE Final Result [facility] Department [place] [address] * (ABNORMAL) eGFR (08/14/2024 11:18 AM CDT) [...] Resul t [facility] [place] [address] * (ABNORMAL) Differential, auto (08/14/2024 11:18 AM CDT) Pathologist [facility] Neutrophil abs 7.7(H) 1.5 - 6.5 K/cumm Comment:Testing performed by : [facility], [address] [place] [address] Imm gran abs 0.1 0.0 - 0.1 K/cumm [facility] Lymphocyte abs 2.0 0.8 - 3.3 K/cumm [facility] Monocyte abs 0.8 0.2 - 0.8 K/cumm [facility] Eosinophil abs 0.4 0.0 - 0.5 K/cumm [facility] Basophil abs 0.1 0.0 - 0.1 K/cumm [facility] Neutrophil pct 69.7 % [facility] Comment: Interpretive Data Percent cell count reference ranges are not reported, since discordance with absolute values may lead to misinterpretation of CBC data. Current Interpretive Data was last revised on 2017. Imm gran pct 0.5 % [facility] Comment: Interpretive Data Percent cell count reference ranges are not reported, since discordance with absolute values may lead to misinterpretation of CBC data. Current Interpretive Data was last revised on 2017. Lymphocyte pct 17.9 % [facility] Comment: Interpretive Data Percent cell count reference ranges are not reported, since discordance with absolute values may lead to misinterpretation of CBC data. Current Interpretive Data was last revised on 2017. Monocyte pct 7.6 % [facility] Comment: Interpretive Data Percent cell count reference ranges are not reported, since discordance with absolute values may lead to misinterpretation of CBC data. Current Interpretive Data was last revised on 2017. Eosinophil pct 3.6 % [facility] Comment: Interpretive Data Percent cell count reference ranges are not reported, since discordance with absolute values may lead to misinterpretation of CBC data. Current Interpretive Data was last revised on 2017. Basophil pct 0.7 % [facility] Comment: Interpretive Data Percent cell count reference ranges are not reported, since discordance with absolute values may lead to misinterpretation of CBC data. Current Interpretive Data was last revised on 2017. Blood 08/14/2024 11:1 8 AM CDT 08/14/2024 11:18 AM CDT us Marcella Taylor MD LAB BLOOD ORDERABLES Final Resul t [facility] [place] [address] * (ABNORMAL) CBC with auto differential (08/14/2024 11:18 AM CDT) WBC 11.0(H) 3.8 - 9.9 K/cumm Comment:Testing performed by : [address] [address] Hgb 10.3(L) 13.0 - 17.5 g/dL [facility] Comment:Testing performed by : [address] [address] Hct 32.1(L) 38.9 - 50.3 % [facility] Comment:Testing performed by : [address] [address] Plt 187 150 - 400 K/cumm [facility] Comment:Testing performed by : [address] [address] MPV 9.6 9.1 - 12.3 fL HOSPITAL [...] Resul t [facility] [place] [address] * (ABNORMAL) Lactate dehydrogenase (LD) (08/14/2024 11:18 AM CDT) Lactate dehydrogenase (LDH) 343(H) 100 - 250 Units/L Comment:Testing performed by : [address] [address] Blood 08/14/2024 11:1 8 AM CDT 08/14/2024 11:18 AM CDT us Marcella Taylor MD LAB BLOOD ORDERABLES Final Resul t [facility] [place] [address] * (ABNORMAL) Comprehensive metabolic panel (08/14/2024 11:18 AM CDT) Sodium 142 135 - 145 mmol/L Comment:Testing performed by : [facility], [address] [place] [address] Potassium, pl 4.7 3.3 - 4.9 mmol/L [...] Bilirubin, total 0.5 0.1 - 1.2 mg/dL [facility] Protein, pl 6.5 6.5 - 8.5 g/dL [facility] Albumin 3.6 3.5 - 5.0 g/dL [facility] Alk phos 83 40 - 130 Units/L [facility] ALT 11 7 - 55 Units/L [facility] AST 22 10 - 50 Units/L [facility] Blood 08/14/2024 11:1 8 AM CDT 08/14/2024 11:18 AM CDT us Marcella Taylor MD LAB BLOOD ORDERABLES Final Resul t [facility] Department of Laboratories [place] [id number] * US Vein Mapping Fistula Access, Bilateral (08/12/2024 9:16 AM CDT) Anatomical Region Laterality Modality Vascular Bilateral Ultrasound 08/12/2024 7:00 AM CDT Narrative 08/12/2024 12:47 PM CDT [facility] - Department of Vascular Surgery, Vascular Laboratory [address] [place] [address] Upper Extremity Vein Mapping Report Patient Name: JOSÉ LUIS GAMBLE : 1945 (78y 10m) Study Date: 08/12/2024 7:00:58 AM Gender: M City Wellness Coordinator: GONZALO Location: [facility] Provider: GODFREY VILLARREAL Quality: Adequate Order [...] Value Units Left Value Units FINDINGS: Performing City Wellness Coordinator: Jayda Dunn RVT. Bilateral: Venous Doppler signals [...] above. Electronically Signed By: Josias Cox MD [facility] [phone] 08/12/2024 12:46:53 PM CDT Procedure Note Josias Cox MD - 08/12/2024 [facility] - Department of Vascular Surgery,Vascular Laboratory [address] [place] [address] Upper Extremity Vein Mapping Report Patient Name: JOSÉ LUIS GAMBLE : 1945 (78y 10m) Study Date: 08/12/2024 7:00:58 AM Gender: M City Wellness Coordinator: GONZALO Location: [facility] Provider: GODFREY VILLARREAL Quality: Adequate Order [...] Value Units Left Value Units FINDINGS: Performing City Wellness Coordinator: Jayda Dunn RVT. Bilateral: Venous Doppler signals [...] above. Electronically Signed By: Josias Cox MD [facility] [phone] 08/12/2024 12:46:53 PM CDT us Godfrey Villarreal MD IMG US PROCEDURES Final R esult * SCAN - LABS (08/08/2024) us Provider Scanning Final Result * (ABNORMAL) Hemoglobin A1c (07/11/2024 9:14 PM GENERAL PRACTITIONER) Hgb A1C 6.3(H) 4.0 - 5.6 % Estimated Average Glucose 134 mg/dL [facility] Comment: The ADA recommends reporting an estimated Average Glucose (eAG) with all Hemoglobin A1c results using the equation derived from a study of 507 normal and diabetic adults. Minority populations were underrepresented and children were not included. (Diabetes Care 2020; 43(S1): S66-S76). The eAG is not equivalent to a fasting glucose. Blood 07/11/2024 9:14 PM GENERAL PRACTITIONER 07/11/2024 9:39 PM GENERAL PRACTITIONER Narrative [facility] - 07/12/2024 8:23 AM GENERAL PRACTITIONER Reflex us Rex Reid MD LAB BLOOD ORDERABLES Final Resul t [facility] [place] [address] * (ABNORMAL) Albumin Creatinine Ratio, Urine (05/13/2024 9:16 AM GENERAL PRACTITIONER) Albumin Ur 3,688.8 mg/L Comment: Interpretive Data No reference range established. Current interpretive data was last revised 2018. Creatinine Ur 59.2 mg/dL [facility] Comment: Interpretive Data No reference range established. Current interpretive data was last revised 2018. Albumin Creatinine Ratio, Ur 6,231(H) 1 - 29 mg/g [facility] Urine 05/13/2024 9:16 AM GENERAL PRACTITIONER 05/13/2024 2:55 PM GENERAL PRACTITIONER us Matt Kendrick MD LAB URINE ORDERABLE S Final Result [facility] [address] Department [place] [address] * (ABNORMAL) Lipid panel (05/13/2024 9:16 AM GENERAL PRACTITIONER) Cholesterol 128 30 - 199 mg/dL Comment: [...] 3 [facility] Blood 05/13/2024 9:16 AM GENERAL PRACTITIONER 05/13/2024 2:55 PM GENERAL PRACTITIONER us Matt Kendrick MD LAB BLOOD ORDERABLE S Final Result [facility] [address] Department [place] [address] * CT abdomen pelvis without contrast (12/14/2023 [...] Diagnosed Date Autogenerated Problem 10/29/2024 Insurance MEDICARE [place] [id number] [address] [facility] [place] [id number] MEDICARE [place] [id number] [address] [employer] SUPPLEMENT MEDICARE COMMERCIAL GENERIC Advance Directives For more information, please contact: [phone] * Full Code (Latest Code Status on [...] 1:19 PM 07/30/2020 4:54 AM Care Teams Transportation Economics Teacher Relationship Specialty [place] [address] [address] PCP - General Family Practice 04/26/22 Marcella Taylor MD [address] [place] [address] Medical Oncologist/Test Center Manager Medical Oncology 08/08/20 Godfrey Villarreal MD [address] [facility] [address]06 [place] [address] Surgeon Vascular Surgery 09/20/24
--- OUTSIDE RECORDS SUMMARY | 2024-10-29 22:09 | XMS_ITS | Continuity of Care Document ---
Author Name [facility] Organization [facility] Care Team Providers Care Junior Linux Systems Administrator Name Role Phone [facility] Unavailable Unavailable Problems Combined list of problems from Department of [facility] and Veterans Affairs facilities. It does not include entries that were removed or entered in error. 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 Immunization Series Date Given Administered By Site Reaction Lot Number CVX Code Drug Foam Machine Operator Status Comments Source COVID-19 (PFIZER), MRNA, LNP-S, PF, 30 MCG/0.3 ML DOSE 2 2020 208 complet ed PFR; [id number]; 1 [facility] COVID-19 (PFIZER), MRNA, LNP-S, PF, 30 MCG/0.3 ML DOSE 1 2020 208 complet ed PFR; [id number]; 1 [facility] Encounters Combined list of: 1) Encounters from Department of Veterans Affairs facilities going backup to the last 18 months, not all VA inpatient encounters are included; 2) Encounters from the Department of [facility] facilities going backup to 280 months. Location Location Details Encounter Type Encounter Number Reason For Visit Attending Provider ADM Date DC Date Status Disposition Source [facility] REPAIR/MOD IFYING [id number] Diagnos is: ICD-10- CM H90.3 Sensori neural hearing loss, MICAELA Saba 12/03 [facility] Outpatient Encounter [id number] 06/20 [facility]
--- OUTSIDE RECORDS SUMMARY | 2024-10-29 22:09 | XMS_ITS | Continuity of Care Document ---
Author Organization [facility] Address [id number] [place] [address] [address] [place] [address] Phone Care Team Providers Care Cable Swager Name Role Phone Bianca Moran Unavailable Advance Directives Directive Yes / No Effective Date File Name No Information Encounters Encounter Description Practice Location Reason(s) For Visit Diagnoses Date Provider Providers Copied on Encounter [facility], [address], [place], [place], [id number], [place] tel:[phone] [facility] No Information Jul-0 5200 [address] Lu[address] Valenzuela. [address] , [address], [place], [address], [place]. tel:[phone] Family History Family Member Type Diagnosis Age At Onset No Information Payers Payer name Insurance type Covered democrat ID Authoriza tion(s) [employer] SOI CI [id number] Social History Type Description Quantity Date Captured [...]
--- OUTSIDE RECORDS SUMMARY | 2024-10-29 22:09 | XMS_ITS | Encounter Summary ---
Author Organization [facility] Address [address] [facility] [address] [place] [address] Phone Care Team Providers Care Chimney Construction Supervisor Name Role Phone Marcella Taylor MD Primary Care Provider Gerard Mo MD Primary Care Provider [phone] Marcella Taylor MD Unavailable Anselmo Sampson MD Primary Care Provider [phone] Godfrey Villarreal MD Unavailable [phone] Encounter Details Date Type Department Care Team (Late st Contact Info) Description 10/26/2017 Orders Only 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 Gender Identity Not on file Sexual Orientation Not on file documented as of this encounter Plan of Treatment Upcoming Encounters Date Type Department Care Team (Latest Contact Info) Description 11/04/2024 12:00 PM CDT Hospital Encounter [facility] Operating [address] [place] [address] Godfrey Villarreal MD [address] [facility] [address] [place] [address] 11/04/2024 12:00 PM CDT Anesthesia Event [facility] Operating [address] [place] [address] Maryjo Galicia NP [address] [place] [address] 11/04/2024 12:00 PM CDT - 11/04/2024 3:05 PM CDT Surgery [facility] Operating [address] [place] [address] Godfrey Vilalrreal MD [address] [facility] [address] [place] [address] CREATION ARTERIOVENOUS FISTULA - ARM-brachialcephalic Scheduled Procedures Name Priority Associated Diagnoses Date/Ti me CREATION ARTERIOVENOUS FISTULA - ARM End stage renal disease on dialysis ([facility]) 11/04/2024 12:00 PM CDT REVISION ARTERIOVENOUS FISTULA - ARM End stage renal disease on dialysis ([facility]) 11/04/2024 12:00 PM CDT documented as of [...] COVID: Suspected 07/09/2024 07/09/2024 07/09/2024 11:36 AM ARROW POINT ATTACHER COVID: Suspected 07/09/2024 07/09/2024 07/09/2024 4:05 PM ARROW POINT ATTACHER documented as of this encounter Care Teams Chimney Construction Supervisor Relationship Specialty Start Date End Date Marcella Taylor MD [address] [place] [address] PCP - General 10/26/17 10/31/17 Gerard Mo MD [address] [place] [address] PCP - General 11/01/17 04/25/22 [place] [address] [place] [address] PCP - General Family Practice 04/26/22 Marcella Taylor MD [address] [place] [address] Medical Oncologist/Furrier Apprentice Medical Oncology 08/08/20 Godfrey Villarreal MD [address] [facility] [address] [place] [address] Surgeon Vascular Surgery 09/20/24 documented as of this encounter
--- OUTSIDE RECORDS SUMMARY | 2024-10-29 22:09 | XMS_ITS | Encounter Summary ---
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 Gender Identity Not on file Sexual Orientation Not on file documented as of this encounter Plan of Treatment Upcoming Encounters Date Type Department Care Team (Latest Contact Info) Description 11/04/2024 12:00 PM CDT Hospital Encounter [facility] Operating Room [address] [place] [address] Godfrey Villarreal MD [address] [facility] [address] [place] [address] 11/04/2024 12:00 PM CDT Anesthesia Event [facility] Operating Room [address] [place] [address] Maryjo Galicia, VP INFORMATION TECHNOLOGY [address] [place] [address] 11/04/2024 12:00 PM CDT - 11/04/2024 3:05 PM CDT Surgery [facility] Operating [address] [place] [address] Godfrey Villarreal MD [address] [facility] [address] [place] [address] CREATION ARTERIOVENOUS FISTULA - ARM-brachialcephalic Scheduled Procedures [...] COVID: Suspected 07/09/2024 07/09/2024 07/09/2024 11:36 AM HEALTH SERVICE WORKER COVID: Suspected 07/09/2024 07/09/2024 07/09/2024 4:05 PM HEALTH SERVICE WORKER documented as of this encounter Care Teams Principal Software Engineer Relationship Specialty Start Date End Date Sampson, [place] [address] [address] [address] PCP - General Family Practice 04/26/22 Marcella Taylor MD [address] [facility] [address] [place] [address] Medical Oncologist/Meat Grader Medical Oncology 08/08/20 Godfrey Villarreal MD [address] [facility] [address] [place] [address] Surgeon Vascular Surgery 09/20/24 documented as of this encounter
--- OUTSIDE RECORDS SUMMARY | 2024-10-29 22:09 | XMS_ITS | Clinical Summary ---
Author Organization [facility] Address [address] [place] [address] Care Team Providers Care Title Lawyer Name Role Phone Marcella Taylor MD Unavailable Anselmo Sampson MD Primary Care Provider [phone] Godfrey Villarreal MD Unavailable Allergies No known [...] (two) times a day with meals Active dnsfkdj-fbtrfktrm-a inc 333-133-5 mg tabletIndications:V itamin Deficiency Prevention [...] coma, with long-term current use of insulin ([facility]) Check blood sugar 3 times daily [...] coma, with long-term current use of insulin ([facility]) Inject 0.06 mL (6 Units total) [...] 1 tablet (4 mg total) by mouth alternative medicine practitioner before breakfast 2023 Active cyanocobalamin (Vitamin B-12) [...] times a day 2024 Active blood-glucose sensor ([employer] G7 Sensor) deviceIndications:t ype 2 diabetes mellitus [...] 07/11/2024 Assessment & Plan (07/14/2024 9:38 AM INVESTIGATIVE AGENT): Patient has had progression of CKD to now ESRD needing dialysis initiation given c/f uremia symptoms. Directly admitted per renal. Underwent tunneled dialysis catheter by IR on 07/12 and received HD on 07/12 and 07/13 -Hemodialysis as per Nephrology -Continue home bicarb URI (upper respiratory infection) 07/11/2024 Assessment & Plan (07/12/2024 12:59 PM INVESTIGATIVE AGENT): Suspected viral. COVID/flu/RSV neg 07/09. CXR neg 07/10. Was prescribed azithromycin on 07/09 which he took for 3 days. Will not continued further -Supportive care Hypomagnesemia 01/02/2024 CKD (chronic kidney disease) stage 4, GFR 15-29 ml/min 04/16/2023 Assessment & Plan (07/25/2023 10:06 AM INVESTIGATIVE AGENT): Chronic problem. Managed by Dr Flores. Has f/u appt at end of the month. Assessment & Plan (04/16/2023 8:48 PM INVESTIGATIVE AGENT): Chronic, stable Following with Roof Shingler Acute kidney injury 02/24/2023 (HFpEF) heart failure with preserved ejection fr action 02/24/2023 Assessment & Plan (02/24/2023 3:38 PM CDT): TTE with EF 77% and at least grade 1 diastolic dysfunction (indeterminate on last TTE). Not in exacerbation -Cont home lasix 40mg -strict I&Os, daily weights -F/u with OSH Summer Law Clerk Dr. Payton CAD (coronary artery disease) 02/24/2023 Assessment & Plan (02/24/2023 3:38 PM CDT): S/p prior 5v CABG in 2012 -Cont statin and coreg -Intolerant of PATI-I/ARB due to worsening renal function -ASA held due to procedure -F/u with Cardiology outpatient Hyperlipidemia associated with type 2 diabetes aimee ulloa 02/24/2023 Assessment & Plan (07/11/2024 9:32 PM INVESTIGATIVE AGENT): -Continue home welchol -Atorvastatin for home pitavastatin (non-formulary) Assessment & Plan (05/13/2024 9:10 AM INVESTIGATIVE AGENT): Continue statin therapy Assessment & Plan (11/16/2023 11:18 AM CDT): Chronic problem. Currently taking Pitavatatin 4mg daily. Last lipid panel: 02/24/23 LDL=76, ZP=096. Assessment & Plan (07/25/2023 10:22 AM INVESTIGATIVE AGENT): Chronic problem. Currently taking Pitavatatin 4mg daily. Last lipid panel: 02/24/23 LDL=76, OE=105. Assessment & Plan (04/16/2023 8:46 PM INVESTIGATIVE AGENT): On Pitavastatin therapy Tolerating well Assessment & Plan (02/24/2023 3:39 PM CDT): Cont statin and colesevelam Type 2 diabetes mellitus wit h stage 4 chronic kidney disease, with long-term current use of insulin 02/24/2023 Assessment & Plan (07/11/2024 9:31 PM INVESTIGATIVE AGENT): F/b endo. Home regimen: tresiba 5U QHS, aspart 6-8U TID with meals Pt/ report issues with hypoglycemia lately at home. -Will start with SSI for now; titrate/add scheduled insulin pending glucose trends Assessment & Plan (05/13/2024 9:10 AM INVESTIGATIVE AGENT): Chronic, uncontrolled, worsening Hemoglobin A1c 6.8 A1c [...] soon Daily foot care Advise to call [employer] and get the dexcom G 6 sensor [...] return to normal. If you're eating a start up specialist lunch--drop the Fiasp to 6 units. Current medications: Tresiba 6 units at bedtime Fiasp 4 units with breakfast & dinner, 8 units with lunch (6 units if start up specialist lunch) If blood sugar is between 151-200, add 1 units. If blood sugar is between 201-250, add 2 units. If blood sugar is between 251-300, add 3 units. If blood sugar is between 301-350, add 4 units. UTD on DM eye exam (06/15/[address] [facility]). UTD on labs. Discussed with José [...] infection. Assessment & Plan (07/25/2023 10:02 AM INVESTIGATIVE AGENT): Chronic problem. A1c stable at 6.1% but having overnight lows & occasionally lows after LN. Call your supply company to switch from Dexcom G6 to Dexcom G7. Lower tresiba to 6 units nightly. If you notice that your over night readings are too high--start to increase by 1 unit weekly until they return to normal. If you're eating a start up specialist lunch--drop the Fiasp to 6 units. Current medications: Tresiba 6 units at bedtime Fiasp 4 units with breakfast & dinner, 8 units with lunch (6 units if start up specialist lunch) If blood sugar is between 151-200, add 1 units. If blood sugar is between 201-250, add 2 units. If blood sugar is between 251-300, add 3 units. If blood sugar is between 301-350, add 4 units. DM eye exam 06/2023 at [facility]. Letter sent to get [...] infection. Assessment & Plan (04/16/2023 8:47 PM INVESTIGATIVE AGENT): Chronic , improving overall hyperglycemia but now [...] TID +SSI; adjust PRN -F/u with OS quality compliance manager Proteinuria 02/24/2023 Assessment & Plan (02/25/2023 7:46 [...] 11/04/2021 Assessment & Plan (07/12/2024 12:57 PM INVESTIGATIVE AGENT): Getting aranesp outpatient -Trend CBC -Transfuse PRN [...] 11/04/2021 Assessment & Plan (07/11/2024 9:30 PM INVESTIGATIVE AGENT): -Continue home amlodipine, hydralazine, coreg Assessment & Plan (05/13/2024 9:11 AM INVESTIGATIVE AGENT): Chronic, fairly controlled for pt age Continue amlodipine Managed by nephrology Assessment & Plan (11/16/2023 11:18 AM CDT): Chronic problem. Controlled on current Carvedilol 25mg bid, amlodipine 10mg daily, lasix 20mg daily. not taking hydralazine currently Assessment & Plan (07/25/2023 10:05 AM INVESTIGATIVE AGENT): Chronic problem. Controlled on current Carvedilol 25mg bid, amlodipine 10mg daily, lasix 20mg daily. 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 Overview (08/14/2020): Added automatically from request for surgery [id number] Assessment & Plan (07/14/2024 9:38 AM INVESTIGATIVE AGENT): Pt of Dr Taylor -Holding home ripretinib [...] Description 10/16/2024 11:00 AM CDT Office Visit [facility] [address] [place] [address] Ekaterina Chanel NP Low vitamin B12 level (Primary Dx); GIST (gastrointestinal stroma tumor), malignant, colon (HCC); 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) 10/16/2024 10:30 AM CDT Lab [facility] [address] [place] [address] GIST (gastrointestinal stroma tumor), malignant, colon (HCC); 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); Low vitamin B12 level 10/16/2024 8:39 AM CDT - 10/16/2024 11:59 PM CDT Hospital Encounter [facility] [address] [place] [address] Discharge Disposition: Discharge to home or self care 10/16/2024 7:18 AM CDT - 10/16/2024 11:59 PM CDT Hospital Encounter [facility] [address] [place] [address] GIST (gastrointestinal stroma tumor), malignant, colon (HCC); 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) Discharge Disposition: Discharge to home or self care 10/16/2024 Results Follow-Up [facility] [address] [place] [address] Jose Antonio Gamble Lactate dehydrogenase (LD), Comprehensive metabolic panel, CBC with auto differential, Additional followed-up results: 3 10/14/2024 10:30 AM CDT Office Visit [facility] Medical Office Building [address] [place] [phone] Godfrey Villarreal MD ESRD (end stage renal disease) (HCC) (Primary Dx); Encounter for surgical aftercare following surgery on the circulatory system 10/11/2024 11:00 AM CDT Ancillary Procedure [facility] Vascular Surgery [address] [place] [address] [address] [place], [place] [phone] End stage renal disease (HCC) 10/09/2024 Orders Only [facility] [address] [place] [phone] Jose Antonio Gamble 10/09/2024 Telephone [facility] [address] [place] [address] Matt Nicholson MD 09/20/2024 7:30 AM CDT - 09/20/2024 10:40 AM CDT Surgery [facility] Operating Room [address] [place] [phone] Godfrey Villarreal MD CREATION 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 09/20/2024 7:24 AM CDT Anesthesia Event [facility] Operating Room [address] [place] [phone] Joshua Rodgers MD Gangloff, Kerry Marie, NP 09/20/2024 5:44 AM CDT - 09/20/2024 11:38 AM CDT Hospital Encounter [facility] Operating Room [address] [place] [address] Godfrey Villarreal MD ESRD (end stage renal disease) on dialysis (HCC) (Primary Dx) Discharge Disposition: Discharge to home or self care 09/20/2024 Orders Only [facility] [address] [place] [address] Office [address] [place] [address] Godfrey Villarreal MD End stage renal disease (HCC) (Primary Dx) 09/19/2024 Telephone [facility] [address] [place] [address] Office [facility] [address] [place] [phone] Godfrey Villarreal MD 08/27/2024 Telephone [facility] [address] [facility] Floor 1 [place] [address] Godfrey Villarreal MD 08/26/2024 Telephone [facility] [address] [facility] Floor 1 [place] [address] Godfrey Villarreal MD 08/14/2024 12:00 PM CDT Office Visit [facility] [address] [place] [phone] Marcella Taylor MD GIST (gastrointestinal stroma tumor), malignant, colon (HCC) (Primary Dx); 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) 08/14/2024 11:30 AM CDT Lab [address] [address] GIST (gastrointestinal stroma tumor), malignant, colon (HCC); 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) 08/12/2024 9:45 AM CDT Office Visit [facility] [address] [place] [address] Office [facility] [address] [place] [phone] Godfrey Villarreal MD ESRD (end stage renal disease) (HCC) (Primary Dx) 08/12/2024 8:45 AM CDT Ancillary Procedure [facility] Lab Vascular Surgery [address] [place] [address] ESRD (end stage renal disease) (HCC) 08/12/2024 Orders Only [facility] [address] [place] [phone] Jose Antonio Gamble 08/12/2024 Telephone [facility] [address] [place] [phone] Jose Antonio Gamble from Last 3 Months [...] insufficiency Dialysis Tue / Thur/ Sat in [place], [place] [facility] (HCC) Anemia Heart failure [...] on file Legal Sex Male 6:14 AM INVESTIGATIVE AGENT Gender Identity Not on file Sexual [...] [facility] [address] [place] [address] Godfrey Villarreal MD [id number] [place] [address] 11/04/2024 12:00 PM CDT Anesthesia Event [facility] Operating Room [address] [place] [phone] Maryjo Galicia, MARY [address] [place] [address] 11/04/2024 12:00 PM CDT - 11/04/2024 3:05 PM CDT Surgery [facility] Operating Room [address] [place] [address] Godfrey Villarreal MD [id number] [place] [address] CREATION ARTERIOVENOUS FISTULA - ARM-brachialcephalic Scheduled Procedures [...] Pulliam NP Medical Devices Implanted Type Area Manager [employer] Device Identifier Shelf Expiration Date Model / Serial / Lot Stent- 8 Implanted:04/19 by [facility] MD Sierra (Quantity not on file) Stent Heart Description:1.5 or 3 Nazia N ormal Mode Scan 15 rest 5 [employer] Duraflow Embosafe 15.5fr 28cm Basic 2 Lumen Kit Catheter [id number] - [id number] Implanted:Qty: 1 on 07/12/2024 at [facility] [employer] 08/02/2026 [id number] 25 / / [id number] Procedures Procedure Name Priority Date/Time Associated Diagnosis [...] DEVICE Routine 09/20/2024 9 :00 AM CDT WI AN PROCEDURE PLACEHOLDER Routine 09/20/2024 7:59 AM CDT WI AN ELECTIVE ENDOTRACHEAL AIRWAY Routine 09/20/2024 7:59 [...] 08/08/2024 HEMOGLOBIN A1C Timed 07/11/2024 9:14 PM INVESTIGATIVE AGENT LIPID PANEL Routine 05/13/2024 9:16 AM INVESTIGATIVE AGENT Type 2 diabetes mellitus with stage 4 chronic kidney disease, with long-term current use of insulin (HCC) Hyperlipidemia associated with type 2 diabetes mellitus (HCC) ALBUMIN CREATININE RATIO, URINE Routine 05/13/2024 9:16 AM INVESTIGATIVE AGENT Type 2 diabetes mellitus with stage 4 [...] (ABNORMAL) eGFR (10/16/2024 10:22 AM CDT) Pathologist [facility] eGFR 10(L) >=60 mL/min/1. 73 m2 Comment: [...] LAB BLOOD ORDERABLES Final Resul t [facility] [place] [address] * Differential, auto (10/16/2024 10:22 AM CDT) Pathologist [facility] Neutrophil abs 5.36 1.50 - 6.50 K/cumm Comment:Testing performed by : [facility], [address] [place] [address] Imm gran abs 0.08 0.00 - 0.10 K/cumm [facility] Lymphocyte abs 1.50 0.80 - 3.30 K/cumm [facility] Monocyte abs 0.64 0.20 - 0.80 K/cumm [facility] Eosinophil abs 0.37 0.00 - 0.50 K/cumm [facility] Basophil abs 0.06 0.00 - 0.10 K/cumm [facility] Neutrophil pct 67.0 % [facility] Comment: Interpretive Data Percent cell count reference ranges are not reported, since discordance with absolute values may lead to misinterpretation of CBC data. Current Interpretive Data was last revised on 2017. Imm gran pct 1.0 % [facility] Comment: Interpretive Data Percent cell count reference ranges are not reported, since discordance with absolute values may lead to misinterpretation of CBC data. Current Interpretive Data was last revised on 2017. Lymphocyte pct 18.7 % [facility] Comment: Interpretive Data Percent cell count reference ranges are not reported, since discordance with absolute values may lead to misinterpretation of CBC data. Current Interpretive Data was last revised on 2017. Monocyte pct 8.0 % [facility] Comment: Interpretive Data Percent cell count reference ranges are not reported, since discordance with absolute values may lead to misinterpretation of CBC data. Current Interpretive Data was last revised on 2017. Eosinophil pct 4.6 % [facility] Comment: Interpretive Data Percent cell count reference ranges are not reported, since discordance with absolute values may lead to misinterpretation of CBC data. Current Interpretive Data was last revised on 2017. Basophil pct 0.7 % [facility] Comment: Interpretive Data Percent cell count reference ranges are not reported, since discordance with absolute values may lead to misinterpretation of CBC data. Current Interpretive Data was last revised on 2017. Blood 10/16/2024 10:2 2 AM CDT 10/16/2024 10:22 AM CDT us Marcella Taylor MD LAB BLOOD ORDERABLES Final Resul t [facility] [place] [address] * (ABNORMAL) CBC with auto differential (10/16/2024 10:22 AM CDT) WBC 8.01 3.80 - 9.90 K/cumm Comment:Testing performed by : [address] [address] Hgb 11.2(L) 13.0 - 17.5 g/dL [facility] Comment:Testing performed by : [address] [address] Hct 34.4(L) 38.9 - 50.3 % [facility] Comment:Testing performed by : [facility], [address] [place] [address] Plt 165 150 - 400 K/cumm [facility] Comment:Testing performed by : [facility], [address] [place] [address] MPV 10.7 9.1 - 12.3 fL [facility] RBC 3.94(L) 4.30 - 5.80 M/cumm [facility] MCV 87.3 81.3 - 96.4 fL [facility] MCH 28.4 27.1 - 33.3 pg [facility] MCHC 32.6 32.3 - 35.7 g/dL [facility] RDW CV 14.6 11.1 - 14.9 % [facility] RDW SD 46.6 35.7 - 48.1 fL [facility] NRBC abs 0.00 0.00 - 0.01 K/cumm [facility] ANC Prelim 5.36 1.50 - 6.50 K/cumm [facility] Comment: Interpretive Data The rapid ANC is a preliminary automated count and may vary from the final ANC (Neut Abs) reported in the WBC differential that follows. Current interpretive data was last revised 2024. Blood 10/16/2024 10:2 2 AM CDT 10/16/2024 10:22 AM CDT us Marcella Taylor MD LAB BLOOD ORDERABLES Final Resul t [facility] [place] [address] * Lactate dehydrogenase (LD) (10/16/2024 10:22 AM CDT) Lactate dehydrogenase (LDH) 245 100 - 250 Units/L Comment:Testing performed by : [facility], [address] [place] [address] Blood 10/16/2024 10:2 2 AM CDT 10/16/2024 10:22 AM CDT us Marcella Taylor MD LAB BLOOD ORDERABLES Final Resul t [facility] [place] [address] * (ABNORMAL) Comprehensive metabolic panel (10/16/2024 10:22 AM CDT) Sodium 138 135 - 145 mmol/L Comment:Testing performed by : [facility], [address] [place] [address] Potassium, pl 4.6 3.3 - 4.9 mmol/L [facility] Chloride 104 97 - 110 mmol/L [facility] CO2 26 22 - 32 mmol/L [facility] Anion gap 8 2 - 15 mmol/L [facility] BUN 41(H) 6 - 25 mg/dL [facility] Creatinine 5.47(H) 0.80 - 1.30 mg/dL [facility] Glucose 230(H) 70 - 199 mg/dL [facility] Comment: Interpretive Data Fasting glucose >/= [...] 2022. Calcium 8.4(L) 8.5 - 10.3 mg/dL [facility] Bilirubin, total 0.8 0.1 - 1.2 mg/dL [facility] Protein, pl 6.5 6.5 - 8.5 g/dL [facility] Albumin 3.7 3.5 - 5.0 g/dL [facility] Alk phos 84 40 - 130 Units/L [facility] ALT 12 7 - 55 Units/L [facility] AST 19 10 - 50 Units/L [facility] Blood 10/16/2024 10:2 2 AM CDT 10/16/2024 10:22 AM CDT us Marcella Taylor MD LAB BLOOD ORDERABLES Final Resul t Performing Organization Address City/[facility] Co de Phone Number [facility] [place] [address] * Vitamin B12 (10/16/2024 10:20 AM CDT) Vitamin B12 795 230 - 1,250 pg/mL Blood 10/16/2024 10:2 0 AM CDT 10/16/2024 1:49 PM CDT Marcella Taylor MD LAB BLOOD ORDERABLES Final Resul t Performing Organization Address [facility] de Phone Number PITA [facility] [place] [address] * PET/CT FDG Skull to Thigh (10/16/2024 [...] FDG-PET/CT IMAGING DATE OF STUDY: 10/16/2024 SCANNER: [facility] RADIOPHARMACEUTICAL: 16.31 mCi F-18 Fluorodeoxyglucose (FDG) [...] obtained. The study was interpreted on the [employer] workstation. The mean liver SUV (reported for food quality tester purposes) is 2.4. The total scanned area [...] FDG-PET/CT IMAGING DATE OF STUDY: 10/16/2024 SCANNER: [facility] RADIOPHARMACEUTICAL: 16.31 mCi F-18 Fluorodeoxyglucose (FDG) [...] obtained. The study was interpreted on the [employer] workstation. The mean liver SUV (reported for food quality tester purposes) is 2.4. The total scanned area [...] AM CDT Narrative 10/11/2024 1:44 PM CDT [facility] - Department of Vascular Surgery, Vascular Laboratory [address] [place] [address] Dialysis Access Fistula/Graft Duplex Report Patient Name: JOSÉ LUIS GAMBLE : 1945 (79y ) Gender: M Study Date: 10/11/2024 10:49:25 AM Hospitality Job Titles: [place] Location: [facility] Order Provider: GODFREY VILLARREAL Quality: Adequate Ref [...] Arm Diameter 0.46 cm Rt Deep Vein [place] 58.40 cm/s Rt Outflow Distal Arm Depth 0.27 cm Rt Axillary Vein PSV 58.20 cm/s Rt Outflow Mid Arm Diameter 0.38 cm Rt Subclavian Vein 26.60 cm/s Rt Outflow Mid Arm Depth 0.56 cm Rt Outflow Vein (Graft) Volume Flow Average 310 cc/min Rt Outflow Proximal Arm Diameter 0.43 cm Rt Outflow Proximal Arm Depth 0.71 cm Rt Deep Vein [place] Diameter 0.43 cm Rt Deep Vein [place] Depth 2.10 cm Rt Inflow Artery Diameter 0.53 cm Diameter/Depth Value Units Velocities Value Units FINDINGS: Performing Hospitality Job Titles: Jayda Dunn RVT. [place] Arterial Inflow Normal: No evidence of arterial [...] above. Electronically Signed By: Josias Cox MD [facility] [phone] 10/11/2024 1:30:12 PM CDT Procedure Note Josias Cox MD - 10/11/2024 [facility] - Department of Vascular Surgery,Vascular Laboratory [address] [place] [address] Dialysis Access Fistula/Graft Duplex Report Patient Name: JOSÉ LUIS GAMBLE : 1945 (79y ) Gender: M Study Date: 10/11/2024 10:49:25 AM Hospitality Job Titles: [place] Location: [facility] Order Provider: GODFREY VILLARREAL Quality: Adequate Ref [...] Arm Diameter 0.46 cm Rt Deep Vein [place] 58.40cm/s Rt Outflow Distal Arm Depth 0.27 cm Rt Axillary Vein PSV 58.20 cm/s Rt Outflow Mid Arm Diameter 0.38 cm Rt Subclavian Vein 26.60 cm/s Rt Outflow Mid Arm Depth 0.56 cm Rt Outflow Vein (Graft) Volume FlowAverage 310 cc/min Rt Outflow Proximal Arm Diameter 0.43 cm Rt Outflow Proximal Arm Depth 0.71 cm Rt Deep Vein [place] Diameter 0.43 cm Rt Deep Vein [place] Depth 2.10 cm Rt Inflow Artery Diameter 0.53 cm Diameter/Depth Value Units Velocities Value Units FINDINGS: Performing Hospitality Job Titles: Jayda Dunn RVT. [place] Arterial Inflow Normal: No evidence of arterial [...] above. Electronically Signed By: Josias Cox MD [facility] [phone] 10/11/2024 1:30:12 PM CDT Godfrey Villarreal MD IMG US PROCEDURES Final R esult * POCT glucose (09/20/2024 9:25 AM CDT) Glucose, POC 145 70 - 199 mg/dL Blood 09/20/2024 9:25 AM CDT 09/20/2024 9:25 AM CDT Godfrey Villarreal MD LAB POCT ORDERABLES - DEV ICE Final Result Performing Organization Address City/[facility] Co de Phone Number PITA [facility] [place] [address] * POCT glucose (09/20/2024 9:00 AM CDT) Glucose, POC 133 70 - 199 mg/dL Blood 09/20/2024 9:00 AM CDT 09/20/2024 9:00 AM CDT Godfrey Villarreal MD LAB POCT ORDERABLES - DEV ICE Final Result Performing Organization Address [facility] Co de Phone Number PITA [facility] [place] [address] * WI AN ELECTIVE ENDOTRACHEAL AIRWAY, WI AN PROCEDURE PLACEHOLDER (09/20/2024 7:59 AM CDT) Narrative Caridad Hernandez CRNA - 09/20/2024 7:59 AM CDT Caridad Hernandez CRNA 09/20/2024 8:00 AM Airway Patient location: OR Urgency: elective Date/time: 09/20/2024 7:36 AM Indications for airway management: anesthesia Difficult airway: no Staff: Supervising provider: Joshua Rodgers MD Placed by: TECHNICAL SPECIALIST CYTOGENETICS: Caridad Hernandez CRNA Emergent airway documentation: Risks [...] K POC 3.2(L) 3.3 - 4.9 mmol/L [facility] Comment: Interpretive Data Not all point of care methods assess for hemolysis. Confirm with instrument and retest K+ if not consistent with clinical signs and symptoms. Current Interpretive Data was last revised on 2023. Glucose, POC 165 70 - 199 mg/dL [facility] Hct, POC 33.0(L) 41.4 - 51.6 % [facility] Total Hb, POC 11.0(L) 13.8 - 17.2 g/dL [facility] Blood 09/20/2024 7:05 AM CDT 09/20/2024 7:05 AM CDT us Godfrey Villarreal MD LAB POCT ORDERABLES - DEV ICE Final Result Performing Organization Address City/[facility]/ZIP Co de Phone Number [facility] [place] [address] * (ABNORMAL) eGFR (08/14/2024 11:18 AM CDT) [...] ORDERABLES Final Resul t PITA BARGER [facility] [place] [address] * (ABNORMAL) Differential, auto (08/14/2024 11:18 AM CDT) Neutrophil abs 7.7(H) 1.5 - 6.5 K/cumm Comment:Testing performed by : [facility], [address] [facility] [address] Imm gran abs 0.1 0.0 - 0.1 [...] 2017. Imm gran pct 0.5 % [facility] Comment: Interpretive Data Percent cell count reference ranges are not reported, since discordance with absolute values may lead to misinterpretation of CBC data. Current Interpretive Data was last revised on 2017. Lymphocyte pct 17.9 % [facility] Comment: Interpretive Data Percent cell count reference ranges are not reported, since discordance with absolute values may lead to misinterpretation of CBC data. Current Interpretive Data was last revised on 2017. Monocyte pct 7.6 % [facility] Comment: Interpretive Data Percent cell count reference ranges are not reported, since discordance with absolute values may lead to misinterpretation of CBC data. Current Interpretive Data was last revised on 2017. Eosinophil pct 3.6 % [facility] Comment: Interpretive Data Percent cell count reference ranges are not reported, since discordance with absolute values may lead to misinterpretation of CBC data. Current Interpretive Data was last revised on 2017. Basophil pct 0.7 % [facility] Comment: Interpretive Data Percent cell count reference ranges are not reported, since discordance with absolute values may lead to misinterpretation of CBC data. Current Interpretive Data was last revised on 2017. Blood 08/14/2024 11:1 8 AM CDT 08/14/2024 11:18 AM CDT us Marcella Taylor MD LAB BLOOD ORDERABLES Final Resul t [facility] [place] [address] * (ABNORMAL) CBC with auto differential (08/14/2024 11:18 AM CDT) [facility] Signature WBC 11.0(H) 3.8 - 9.9 K/cumm Comment:Testing performed by : [address] [address] Hgb 10.3(L) 13.0 - 17.5 g/dL [facility] Comment:Testing performed by : [address] [address] Hct 32.1(L) 38.9 - 50.3 % [facility] Comment:Testing performed by : [address] [address] Plt 187 150 - 400 K/cumm [facility] Comment:Testing performed by : [address] [address] MPV 9.6 9.1 - 12.3 fL [facility] RBC 3.88(L) 4.30 - 5.80 M/cumm [facility] MCV 82.7 81.3 - 96.4 fL [facility] MCH 26.5(L) 27.1 - 33.3 pg [facility] MCHC 32.1(L) 32.3 - 35.7 g/dL [facility] RDW CV 17.1(H) 11.1 - 14.9 % [facility] RDW SD 51.6(H) 35.7 - 48.1 fL [facility] NRBC abs 0.00 0.00 - 0.01 K/cumm [facility] Blood 08/14/2024 11:1 8 AM CDT 08/14/2024 11:18 AM CDT us Marcella Taylor MD LAB BLOOD ORDERABLES Final Resul t Performing Organization Address City/[facility]/ZIP Co de Phone Number [facility] [place] [address] * (ABNORMAL) Lactate dehydrogenase (LD) (08/14/2024 11:18 AM CDT) Lactate dehydrogenase (LDH) 343(H) 100 - 250 Units/L Comment:Testing performed by : [facility], [address] [place] [address] Blood 08/14/2024 11:1 8 AM CDT 08/14/2024 11:18 AM CDT us Marcella Taylor MD LAB BLOOD ORDERABLES Final Resul t [facility] [place] [address] * (ABNORMAL) Comprehensive metabolic panel (08/14/2024 11:18 AM CDT) Pathologist [facility] Sodium 142 135 - 145 mmol/L Comment:Testing performed by : [facility], [address] [place] [address] Potassium, pl 4.7 3.3 - 4.9 mmol/L [facility] Chloride 107 97 - 110 mmol/L [facility] CO2 27 22 - 32 mmol/L [facility] Anion gap 8 2 - 15 mmol/L [facility] BUN 41(H) 6 - 25 mg/dL [facility] Creatinine 5.63(H) 0.80 - 1.30 mg/dL [facility] Glucose 170 70 - 199 mg/dL [facility] Comment: Interpretive Data Fasting glucose >/= [...] Calcium 8.0(L) 8.5 - 10.3 mg/dL [facility] Bilirubin, total 0.5 0.1 - 1.2 mg/dL [facility] Protein, pl 6.5 6.5 - 8.5 g/dL [facility] Albumin 3.6 3.5 - 5.0 g/dL [facility] Alk phos 83 40 - 130 Units/L [facility] ALT 11 7 - 55 Units/L [facility] AST 22 10 - 50 Units/L [facility] Blood 08/14/2024 11:1 8 AM CDT 08/14/2024 11:18 AM CDT us Marcella Taylor MD LAB BLOOD ORDERABLES Final Resul t [facility] Department of Laboratories [place] [id number] * US Vein Mapping Fistula Access, Bilateral (08/12/2024 9:16 AM CDT) Anatomical Region Laterality Modality Vascular Bilateral Ultrasound 08/12/2024 7:00 AM CDT Narrative 08/12/2024 12:47 PM CDT [facility] - Department of Vascular Surgery, Vascular Laboratory [address] [place] [address] Upper Extremity Vein Mapping Report Patient Name: JOSÉ LUIS GAMBLE : 1945 (78y 10m) Study Date: 08/12/2024 7:00:58 AM Gender: M Hospitality Job Titles: GONZALO Location: [facility] Provider: [...] Value Units Left Value Units FINDINGS: Performing Hospitality Job Titles: Jayda Dunn RVT. Bilateral: Venous Doppler signals [...] above. Electronically Signed By: Josias Cox MD [facility] [phone] 08/12/2024 12:46:53 PM CDT Procedure Note Josias Cox MD - 08/12/2024 [facility] - Department of Vascular Surgery,Vascular Laboratory [address] [place] [address] Upper Extremity Vein Mapping Report Patient Name: JOSÉ LUIS GAMBLE : 1945 (78y 10m) Study Date: 08/12/2024 7:00:58 AM Gender: M Hospitality Job Titles: GONZALO Location: [facility] Provider: [...] Value Units Left Value Units FINDINGS: Performing Hospitality Job Titles: Jayda Dunn RVT. Bilateral: Venous Doppler signals [...] above. Electronically Signed By: Josias Cox MD [facility] [phone] 08/12/2024 12:46:53 PM CDT us Godfrey Villarreal MD IMG US PROCEDURES Final R esult * SCAN - LABS (08/08/2024) us Provider Scanning Final Result * (ABNORMAL) Hemoglobin A1c (07/11/2024 9:14 PM INVESTIGATIVE AGENT) Hgb A1C 6.3(H) 4.0 - 5.6 % Estimated Average Glucose 134 mg/dL [facility] Comment: The ADA recommends reporting an estimated Average Glucose (eAG) with all Hemoglobin A1c results using the equation derived from a study of 507 normal and diabetic adults. Minority populations were underrepresented and children were not included. (Diabetes Care 2020; 43(S1): S66-S76). The eAG is not equivalent to a fasting glucose. Blood 07/11/2024 9:14 PM INVESTIGATIVE AGENT 07/11/2024 9:39 PM INVESTIGATIVE AGENT Narrative [facility] - 07/12/2024 8:23 AM INVESTIGATIVE AGENT Reflex us Rex Reid MD LAB BLOOD ORDERABLES Final Resul t [facility] [place] [address] * (ABNORMAL) Albumin Creatinine Ratio, Urine (05/13/2024 9:16 AM INVESTIGATIVE AGENT) Albumin Ur 3,688.8 mg/L Comment: Interpretive Data No reference range established. Current interpretive data was last revised 2018. Creatinine Ur 59.2 mg/dL [facility] Comment: Interpretive Data No reference range established. Current interpretive data was last revised 2018. Albumin Creatinine Ratio, Ur 6,231(H) 1 - 29 mg/g [facility] Urine 05/13/2024 9:16 AM INVESTIGATIVE AGENT 05/13/2024 2:55 PM INVESTIGATIVE AGENT Matt Kendrick MD LAB URINE ORDERABLE S Final Result [facility] [address] [place] [address] * (ABNORMAL) Lipid panel (05/13/2024 9:16 AM INVESTIGATIVE AGENT) Cholesterol 128 30 - 199 mg/dL Comment: [...] ratio 3 [facility] Blood 05/13/2024 9:16 AM INVESTIGATIVE AGENT 05/13/2024 2:55 PM INVESTIGATIVE AGENT Matt Kendrick MD LAB BLOOD ORDERABLE S Final Result [facility] [address] [address] [place] [address] * CT abdomen pelvis without contrast (12/14/2023 [...] Diagnosed Date Autogenerated Problem 10/29/2024 Insurance MEDICARE [place] [address] [facility] & [facility] SUPPLEMENT MEDICARE [place] [address] H & [facility] SUPPLEMENT MEDICARE [facility] GENERIC Advance Directives For more information, please contact: [phone] * Full Code (Latest Code Status on [...] 1:19 PM 07/30/2020 4:54 AM Care Teams Title Lawyer Relationship Specialty [place] [address] [address] PCP - General Family Practice 04/26/22 Marcella Taylor MD [address] [place] [address] Medical Oncologist/Helmet Hat Puncher Medical Oncology 08/08/20 Godfrey Villarreal MD [address] [facility] [address]06 [place] [address] (work) Surgeon Vascular Surgery 09/20/24
--- OUTSIDE RECORDS SUMMARY | 2024-10-29 22:10 | XMS_ITS | Encounter Summary ---
Author Organization [facility] Address [address] [facility] [address] [place] [address] Phone Care Team Providers Care Plastics Fabrication Supervisor Name Role Phone Gerard Mo MD Primary Care Provider [phone] Marcella Taylor MD Unavailable Anselmo Sampson MD Primary Care Provider [phone] Godfrey Villarreal MD Unavailable [phone] Encounter Details Date Type Department Care Team (Latest Contact Info) Description 08/09/2018 Orders Only [facility] Scanning, Provider Social History Tobacco Use Types Packs/Day Years Used Date Smoking Tobacco: Former Smokeless Tobacco: Never Sex and Gender Information Value Date Recorded Sex Assigned at Not on file Legal Sex Male 6:14 AM DIESEL LOCOMOTIVE ENGINEER Gender Identity Not on file Sexual Orientation Not on file documented as of this encounter Plan of Treatment Upcoming Encounters Date Type Department Care Team (Latest Contact Info) Description 11/04/2024 12:00 PM CDT Hospital Encounter [facility] Operating Room [address] [place] [address] Godfrey Villarreal MD [address] [facility] [address]06 [place] [address] 11/04/2024 12:00 PM CDT Anesthesia Event [facility] Operating Room [address] [place] [address] Maryjo Galicia, CLINICAL SUPERVISOR [address] [place] [address] 11/04/2024 12:00 PM CDT - 11/04/2024 3:05 PM CDT Surgery [facility] Operating Room [address] [place] [address] Godfrey Villarreal MD [address] [facility] [address]10-06 [place] [address] CREATION ARTERIOVENOUS FISTULA - ARM-brachialcephalic Scheduled Procedures Name Priority Associated Diagnoses Date/Ti me CREATION ARTERIOVENOUS FISTULA - ARM 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) 11/04/2024 12:00 PM CDT REVISION ARTERIOVENOUS FISTULA - ARM End stage renal disease on dialysis ([facility]) 11/04/2024 12:00 PM CDT documented as [...] COVID: Suspected 07/09/2024 07/09/2024 07/09/2024 11:36 AM DIESEL LOCOMOTIVE ENGINEER COVID: Suspected 07/09/2024 07/09/2024 07/09/2024 4:05 PM DIESEL LOCOMOTIVE ENGINEER documented as of this encounter Care Teams Plastics Fabrication Supervisor Relationship Specialty Start Date End Date Gerard Mo MD PCP - General 11/01/17 04/25/22 [place] [address] [address] PCP - General Family Practice 04/26/22 Marcella Taylor MD [address] [place] [address] [address] [place] [address] Medical Oncologist/Chief Enterprise Architect Medical Oncology 08/08/20 Godfrey Villarreal MD [address] [facility] [address]06 [place] [address] Surgeon Vascular Surgery 09/20/24 documented as of this encounter
--- OUTSIDE RECORDS SUMMARY | 2024-10-29 22:10 | XMS_ITS | Continuity of Care Document ---
Author Organization [facility] Address [address] [address] [place] [address] Phone Care Team Providers Care Shift Stacker Name Role Phone Gerard Mo MD Unavailable [...] meal each day 0.4 MG - Active hydralazine 50 mg tablet take 1 tablet by oral route 2 times every day with food 50 MG - Active Amaryl 4 mg tablet take 1 tablet by ora l route every day 4 MG - Active Livalo 4 mg tablet take 1 tablet by ora l route every day 4 MG - Active metoprolol tartrate 50 mg tablet take 1 tablet by oral route 2 times every day with meals 50 MG - Active metformin 500 mg tablet take 1 tablet by oral route 2 times every day with morning and evening meals 500 MG - Active Procedures Procedure Date OFFICE/OUTPATIENT VISIT, EST PPPS, initial visit OFFICE/OUTPATIENT VISIT, EST OFFICE/OUTPATIENT VISIT, EST OFFICE/OUTPATIENT VISIT, NEW Advance Directives Directive Yes / No Effective Date File Name No Information Encounters Encounter Description Practice Location Reason(s) For Visit Diagnoses Date Provider Providers Copied on Encounter [facility], [address], [place], [place], [id number], [place] tel:[phone] [facility] No Information [address], [place], [place], [address] , [place]. tel:[phone] OFFICE/OUTPA TIENT VISIT, EST [facility], [address], [place], [place], [address], [place] tel:[phone] [facility] suture1 (chief complaint) Pain in left hand [address], [place], [place], [address] , [place]. tel:[phone] Referring Provider: J[address] [facility] [address], [place], [place], [address]. tel:[phone] OFFICE/OUTPA TIENT VISIT, [facility], [address], [place], [place], [address], [place] tel:[phone] [facility] diarrhea (chief complaint) diarrhea1 (chief complaint) DiarrheaEssential (primary) hypertensionBPH w/ lower urinary tract symptomsEncounter for general adult medical exam w abnormal findingsAnemiaMalig nant neoplasm of small intestine, unspecifiedType 2 diabetes mellitus without complications [address], [place], [place], [address] , [place]. [phone] Referring Provider: Jada [address], [place], [place], [address]. tel:[phone] OFFICE/OUTPA TIENT VISIT, [facility], [address], [place], [place], [address], [place] tel:[phone] [facility] Anemia1 (chief complaint) DM (chief complaint) anxiety1 (chief complaint) insomnia1 (chief complaint) AnemiaType 2 diabetes mellitus without complicationsSleep disorder [address], [place], [place], [address] , [place]. tel:[phone] Referring Provider: Gerard Mo, [address], [place], [place], [address]. tel:[phone] OFFICE/OUTPA TIENT VISIT, [facility], [address], [place], [place], [address], [place] tel:[phone] [facility] Medicine colon CA (chief complaint) HTN (chief complaint) DM (chief complaint) Malignant neoplasm of ascending colonType 2 diabetes mellitus without complicationsEssent ial (primary) hypertensionAnemia 0-201 [address], [place], [place], [address] , [place]. tel:[phone] Referring Provider: Gerard Mo, [address] [facility] [address], [place], [place], [address]. tel:[phone] Family History Family Member Type Diagnosis Age At Onset Father Problem (finding) Brother Problem (finding) Alive and well Father Problem (finding) of unknown age 93 Mother Problem (finding) of 93 natural cuas e Mother Problem (finding) Payers Payer name Insurance type Covered alliance party ID Authoriza tion(s) No Information Social [...] cu t volar surface left thumb with associate professor of english blade 10 days ago requiring suture placement x 5. Pt did have x ray which did not show any bony injury. Pt denies any wound dehiscence, pus drainage, redness or warmth, pain or any paresthesia. diarrhea diarrhea1 Pt has intermitt ent diarrhea daily [...] losartan, metoprolol, hydralazine and livalo He sees crusher wet ground mica and endo. Pt is on metformin and amaryl. He states that his BG is around 120s. Pt denies any hypoglycemia. Pt denies any polyuria, polyuria. Pt also has urinary dribbling and some urinary difficulty but he never tried flomax. his prostate appeared ok on exam. Pt denies any dysuria. UTI symptoms Anemia1 Pt is mildly ane yaz. Pt hs low iron. Pt denies any GI blood loss. 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 Pt decides to go to see oncologist at [facility] Pt will start chemo soon. Pt already seen the physician at [facility] DM Pt has DM Pt rosendo jauregui. metofrmin and amaryl. His A1c is 8.5. Pt sees endo anxiety1 Pt has not been taking celexa and xanax since his anxiety attack resolved Pt denies any depression or any suicidal thought. Pt denies any crying spells insomnia1 Pt has insomnia. Pt states that [...] at least twice at night to urinate colon CA Pt recently suff ered acute bowel perforation due to colon tumor. Pt just had colectomy two weeks ago at [facility]. Pt is seeing surgeon now. Pt has been feel very anxious and panic attacks since the diagnosis of colon CA. Pt states that he feels sometimes anxouis and unable to breath due to his anxiety Pt denies any chest pain. Pt deneis any leg pain. Pt feels slighlty depressed also. Pt denies any suicidal or homicdial thought. HTN Pt has HTN. 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 Pt takes livalo, metoprolol and hydralazine. Pt sees cardiology. Pt denies any chest pain DM Pt has DM. Pt ta kes amaryl and also metfomrin and januvia. Pt takes lantus 40 units at night. Pt states that he sees endrinology 4 months ago. Pt denies any polyuria, polydipsia Instructions Date Instruction Additional Infor israel Special diet education Related t o Body mass index (BMI) 33.0-33.9, adult Increase physical activity Relat ed to Pain in left hand Special diet education Related t o Body mass index (BMI) 33.0-33.9, adult Increase physical activity Relat ed to Encounter for general adult medical exam w abnormal findings Prescribed Activity and Exercise Education Related to Dietary Surveillance and Counseling Prescribed Diet Educ ation/Lifestyle Education Regarding Diet Related to Dietary Surveillance and Counseling Assessments Type Assessment Date No Information
--- OUTSIDE RECORDS SUMMARY | 2024-10-29 22:10 | XMS_ITS | Encounter Summary ---
Author Organization [facility] Address [address] [facility] [address] [place] [address] Phone Care Team Providers Care Laborer Cheesemaking Name Role Phone Marcella Taylor MD Unavailable Anselmo Sampson MD Primary Care Provider [phone] Godfrey Villarreal MD Unavailable [phone] Encounter Details Date Type Department Care Team [...] on file Legal Sex Male 6:14 AM AIRFIELD OPERATIONS SPECIALIST Gender Identity Not on file Sexual Orientation Not on file documented as of this encounter Plan of Treatment Upcoming Encounters Date Type Department Care Team (Latest Contact Info) Description 11/04/2024 12:00 PM CDT Hospital Encounter [facility] Operating Room [address] [place] [address] Godfrey Villarreal MD [address] [facility] [address] [place] [address] 11/04/2024 12:00 PM CDT Anesthesia Event [facility] Operating Room [address] [place] [address] Maryjo Galicia, HOME MISSION WORKER [address] [place] [address] 11/04/2024 12:00 PM CDT - 11/04/2024 3:05 PM CDT Surgery [facility] Operating Room [address] [place] [address] Godfrey Villarreal MD [address] [facility] 8108[address]10-[address] [place] [address] CREATION ARTERIOVENOUS FISTULA - ARM-brachialcephalic Scheduled Procedures Name Priority Associated Diagnoses Date/Ti me CREATION ARTERIOVENOUS FISTULA - ARM 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) 11/04/2024 12:00 PM CDT REVISION ARTERIOVENOUS FISTULA - ARM End stage renal disease on dialysis ([facility]) 11/04/2024 12:00 PM CDT documented as of [...] COVID: Suspected 07/09/2024 07/09/2024 07/09/2024 11:36 AM AIRFIELD OPERATIONS SPECIALIST COVID: Suspected 07/09/2024 07/09/2024 07/09/2024 4:05 PM AIRFIELD OPERATIONS SPECIALIST documented as of this encounter Care Teams Laborer Cheesemaking Relationship Specialty Start [place] [address] [place] [id number] PCP - General Family Practice 04/26/22 Marcella Taylor MD [address] [place] [address] [address] [place] [address] Medical Oncologist/Panel Wirer Medical Oncology 08/08/20 Godfrey Villarreal MD [address] [facility] [address] [place] [address] Surgeon Vascular Surgery 09/20/24 documented as of this encounter
--- OUTSIDE RECORDS SUMMARY | 2024-10-29 22:10 | XMS_ITS | Encounter Summary ---
Author Organization [facility] Address [address] [facility] [address] [place] [address] Phone Care Team Providers Care Electronic Engraver Name Role Phone Marcella Taylor MD Unavailable Anselmo Sampson MD Primary Care Provider [phone] Godfrey Villarreal MD Unavailable [phone] Encounter Details Date Type Department Care Team [...] on file Legal Sex Male 6:14 AM PRESCHOOL ASSISTANT PRINCIPAL Gender Identity Not on file Sexual Orientation Not on file documented as of this encounter Plan of Treatment Upcoming Encounters Date Type Department Care Team (Latest Contact Info) Description 11/04/2024 12:00 PM CDT Hospital Encounter [facility] Operating [address] [place] [address] Godfrey Villarreal MD [address] [facility] [address] [place] [address] 11/04/2024 12:00 PM CDT Anesthesia Event [facility] [address] [place] [address] Maryjo Galicia, UNEMPLOYMENT INSURANCE DIRECTOR [address] [place] [address] 11/04/2024 12:00 PM CDT - 11/04/2024 3:05 PM CDT Surgery [facility] [address] [place] [phone] Godfrey Villarreal MD [address] [facility] [address] [place] [address] CREATION ARTERIOVENOUS FISTULA - ARM-brachialcephalic Scheduled Procedures Name Priority Associated Diagnoses Date/Ti me CREATION ARTERIOVENOUS FISTULA - ARM 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) 11/04/2024 12:00 PM CDT REVISION ARTERIOVENOUS FISTULA - ARM End stage renal disease on dialysis ([facility]) 11/04/2024 12:00 PM CDT documented as [...] COVID: Suspected 07/09/2024 07/09/2024 07/09/2024 11:36 AM PRESCHOOL ASSISTANT PRINCIPAL COVID: Suspected 07/09/2024 07/09/2024 07/09/2024 4:05 PM PRESCHOOL ASSISTANT PRINCIPAL documented as of this encounter Care Teams Electronic Engraver Relationship Specialty [place] [address] [place] [id number] PCP - General Family Practice 04/26/22 Marcella Taylor MD [address] [place] [address] [address] [place] [address] Medical Oncologist/Emergency Management Director Medical Oncology 08/08/20 Godfrey Villarreal MD [address] [facility] [address] [place] [address] Surgeon Vascular Surgery 09/20/24 documented as of this encounter
--- OUTSIDE RECORDS SUMMARY | 2024-10-29 22:10 | XMS_ITS | Encounter Summary ---
Author Organization [facility] Address [address] [place] [address] Phone Care Team Providers Care Meat Team Member Name Role Phone Gerard Mo MD Primary Care Provider [phone] Marcella Taylor MD Unavailable Anselmo Sampson MD Primary Care Provider + [phone] Godfrey Villarreal MD Unavailable [phone] Encounter Details Date Type Department Care Team [...] on file Legal Sex Male 6:14 AM BACKER UP Gender Identity Not on file Sexual Orientation Not on file documented as of this encounter Plan of Treatment Upcoming Encounters Date Type Department Care Team (Latest Contact Info) Description 11/04/2024 12:00 PM CDT Hospital Encounter [facility] [address] [place] [phone] Godfrey Villarreal MD [address] [facility] [address] [place] [address] 11/04/2024 12:00 PM CDT Anesthesia Event [facility] [address] [place] [address] Maryjo Galicia, MARY [address] [place] [address] 11/04/2024 12:00 PM CDT - 11/04/2024 3:05 PM CDT Surgery [facility] [address] [place] [address] Godfrey Villarreal MD [address] [facility] [address] [place] [address] CREATION ARTERIOVENOUS FISTULA - ARM-brachialcephalic Scheduled Procedures [...] COVID: Suspected 07/09/2024 07/09/2024 07/09/2024 11:36 AM BACKER UP COVID: Suspected 07/09/2024 07/09/2024 07/09/2024 4:05 PM BACKER UP documented as of this encounter Care Teams Meat Team Member Relationship Specialty Start Date End Date Gerard Mo MD PCP - General 11/01/17 04/25/22 [place] [address] [address] PCP - General Family Practice 04/26/22 Marcella Taylor MD [address] [place] [address] [address] [place] [address] Medical Oncologist/Venetian Blind Cleaner And Repairer Medical Oncology 08/08/20 Godfrey Villarreal MD [address] [facility] [address] [place] [address] Surgeon Vascular Surgery 09/20/24 documented as of this encounter
--- OUTSIDE RECORDS SUMMARY | 2024-10-29 22:10 | XMS_ITS ---
Author Organization [facility] Address [address] [place] [address] Care Team Providers Care Lode Miner Name Role Phone Marcella Taylor MD Unavailable Anselmo Sampson MD Primary Care Provider [phone] Godfrey Villarreal MD Unavailable [phone] Dialysis Access Sites Type Status Location Placement [...] DEVICE Routine 09/20/2024 9 :00 AM CDT DC AN PROCEDURE PLACEHOLDER Routine 09/20/2024 7:59 AM CDT DC AN ELECTIVE ENDOTRACHEAL AIRWAY Routine 09/20/2024 7:59 [...] 08/08/2024 HEMOGLOBIN A1C Timed 07/11/2024 9:14 PM NUTRITION TEACHER LIPID PANEL Routine 05/13/2024 9:16 AM NUTRITION TEACHER Type 2 diabetes mellitus with stage 4 chronic kidney disease, with long-term current use of insulin (HCC) Hyperlipidemia associated with type 2 diabetes mellitus (HCC) ALBUMIN CREATININE RATIO, URINE Routine 05/13/2024 9:16 AM NUTRITION TEACHER Type 2 diabetes mellitus with stage 4 [...] (two) times a day with meals Active kuuqbzy-axhqpxgmf-u inc 333-133-5 mg tabletIndications:V itamin Deficiency Prevention [...] long-term current use of insulin ([facility]) Check blood sugar 3 times daily [...] long-term current use of insulin ([facility]) Inject 0.06 mL (6 Units total) [...] 1 tablet (4 mg total) by mouth loader helper sorting yard before breakfast 2023 Active cyanocobalamin (Vitamin B-12) [...] 07/11/2024 Assessment & Plan (07/14/2024 9:38 AM NUTRITION TEACHER): Patient has had progression of CKD to now ESRD needing dialysis initiation given c/f uremia symptoms. Directly admitted per renal. Underwent tunneled dialysis catheter by IR on 07/12 and received HD on 07/12 and 07/13 -Hemodialysis as per Nephrology -Continue home bicarb URI (upper respiratory infection) 07/11/2024 Assessment & Plan (07/12/2024 12:59 PM NUTRITION TEACHER): Suspected viral. COVID/flu/RSV neg 07/09. CXR neg 07/10. Was prescribed azithromycin on 07/09 which he took for 3 days. Will not continued further -Supportive care Hypomagnesemia 01/02/2024 CKD (chronic kidney disease) stage 4, GFR 15-29 ml/min 04/16/2023 Assessment & Plan (07/25/2023 10:06 AM NUTRITION TEACHER): Chronic problem. Managed by Dr Flores. Has f/u appt at end of the month. Assessment & Plan (04/16/2023 8:48 PM NUTRITION TEACHER): Chronic, stable Following with Awning Hanger Helper Acute kidney injury 02/24/2023 (HFpEF) heart failure with preserved ejection fr action 02/24/2023 Assessment & Plan (02/24/2023 3:38 PM CDT): TTE with EF 77% and at least grade 1 diastolic dysfunction (indeterminate on last TTE). Not in exacerbation -Cont home lasix 40mg -strict I&Os, daily weights -F/u with [facility] Dr. Payton CAD (coronary artery disease) 02/24/2023 Assessment & Plan (02/24/2023 3:38 PM CDT): S/p prior 5v CABG in 2013 -Cont statin and coreg -Intolerant of PATI-I/ARB due to worsening renal function -ASA held due to procedure -F/u with Cardiology outpatient Hyperlipidemia associated with type 2 diabetes aimee ulloa 02/24/2023 Assessment & Plan (07/11/2024 9:32 PM NUTRITION TEACHER): -Continue home welchol -Atorvastatin for home pitavastatin (non-formulary) Assessment & Plan (05/13/2024 9:10 AM NUTRITION TEACHER): Continue statin therapy Assessment & Plan (11/16/2023 11:18 AM CDT): Chronic problem. Currently taking Pitavatatin 4mg daily. Last lipid panel: 02/24/23 LDL=76, HB=269. Assessment & Plan (07/25/2023 10:22 AM NUTRITION TEACHER): Chronic problem. Currently taking Pitavatatin 4mg daily. Last lipid panel: 02/24/23 LDL=76, IJ=627. Assessment & Plan (04/16/2023 8:46 PM NUTRITION TEACHER): On Pitavastatin therapy Tolerating well Assessment & Plan (02/24/2023 3:39 PM CDT): Cont statin and colesevelam Type 2 diabetes mellitus wit h stage 4 chronic kidney disease, with long-term current use of insulin 02/24/2023 Assessment & Plan (07/11/2024 9:31 PM NUTRITION TEACHER): F/b endo. Home regimen: tresiba 5U QHS, aspart 6-8U TID with meals Pt/ report issues with hypoglycemia lately at home. -Will start with SSI for now; titrate/add scheduled insulin pending glucose trends Assessment & Plan (05/13/2024 9:10 AM NUTRITION TEACHER): Chronic, uncontrolled, worsening Hemoglobin A1c 6.8 A1c [...] soon Daily foot care Advise to call [employer] and get the dexcom G 6 sensor to switch to G7 Check labs today Follow-up in 6 months Assessment & Plan (11/16/2023 11:17 AM CDT): Chronic problem. A1c stable at 6.1% but having overnight lows & occasionally lows after LN. Call your [employer] to switch from Dexcom G6 to Dexcom G7. Lower tresiba to 6 units nightly. If you notice that your over night readings are too high--start to increase by 1 unit weekly until they return to normal. If you're eating a claims adjuster lunch--drop the Fiasp to 6 units. Current medications: Tresiba 6 units at bedtime Fiasp 4 units with breakfast & dinner, 8 units with lunch (6 units if claims adjuster lunch) If blood sugar is between 151-200, add 1 units. If blood sugar is between 201-250, add 2 units. If blood sugar is between 251-300, add 3 units. If blood sugar is between 301-350, add 4 units. UTD on DM eye exam (06/15/23 at [facility] [place]). UTD on labs. Discussed with José Luis [...] infection. Assessment & Plan (07/25/2023 10:02 AM NUTRITION TEACHER): Chronic problem. A1c stable at 6.1% but having overnight lows & occasionally lows after LN. Call your supply company to switch from Dexcom G6 to Dexcom G7. Lower tresiba to 6 units nightly. If you notice that your over night readings are too high--start to increase by 1 unit weekly until they return to normal. If you're eating a claims adjuster lunch--drop the Fiasp to 6 units. Current medications: Tresiba 6 units at bedtime Fiasp 4 units with breakfast & dinner, 8 units with lunch (6 units if claims adjuster lunch) If blood sugar is between 151-200, [...] infection. Assessment & Plan (04/16/2023 8:47 PM NUTRITION TEACHER): Chronic , improving overall hyperglycemia but now [...] TID +SSI; adjust PRN -F/u with OSH vehicle monitor technician Proteinuria 02/24/2023 Assessment & Plan (02/25/2023 7:46 [...] 11/04/2021 Assessment & Plan (07/12/2024 12:57 PM NUTRITION TEACHER): Getting aranesp outpatient -Trend CBC -Transfuse PRN [...] 11/04/2021 Assessment & Plan (07/11/2024 9:30 PM NUTRITION TEACHER): -Continue home amlodipine, hydralazine, coreg Assessment & Plan (05/13/2024 9:11 AM NUTRITION TEACHER): Chronic, fairly controlled for pt age Continue amlodipine Managed by nephrology Assessment & Plan (11/16/2023 11:18 AM CDT): Chronic problem. Controlled on current Carvedilol 25mg bid, amlodipine 10mg daily, lasix 20mg daily. not taking hydralazine currently Assessment & Plan (07/25/2023 10:05 AM NUTRITION TEACHER): Chronic problem. Controlled on current Carvedilol 25mg bid, amlodipine 10mg daily, lasix 20mg daily. 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), malignant, colon 08/14/2020 Overview (08/14/2020): Added automatically from request for surgery [id number] Assessment & Plan (07/14/2024 9:38 AM NUTRITION TEACHER): Pt of Dr Taylor -Holding home ripretinib [...] on file Legal Sex Male 6:14 AM NUTRITION TEACHER Gender Identity Not on file Sexual [...] MD LAB BLOOD ORDERABLES Final Resul t [facility] Department [place] [address] * Differential, auto (10/16/2024 10:22 AM CDT) Pathologist [facility] Neutrophil abs 5.36 1.50 - 6.50 K/cumm Comment:Testing performed by : [facility], [address] [place] [id number] Imm gran abs 0.08 0.00 - 0.10 K/cumm [facility] Lymphocyte abs 1.50 0.80 - 3.30 K/cumm [facility] Monocyte abs 0.64 0.20 - 0.80 K/cumm [facility] Eosinophil abs 0.37 0.00 - 0.50 K/cumm [facility] Basophil abs 0.06 0.00 - 0.10 K/cumm [facility] Neutrophil pct 67.0 % [facility] Comment: Interpretive Data Percent cell count reference ranges are not reported, since discordance with absolute values may lead to misinterpretation of CBC data. Current Interpretive Data was last revised on 2017. Imm gran pct 1.0 % [facility] Comment: Interpretive Data Percent cell count [...] MD LAB BLOOD ORDERABLES Final Resul t [facility] Department [place] [address] * (ABNORMAL) CBC with auto differential (10/16/2024 10:22 AM CDT) WBC 8.01 3.80 - 9.90 K/cumm Comment:Testing performed by : [address] [address] Hgb 11.2(L) 13.0 - 17.5 g/dL PITA BARGER Comment:Testing performed by : [address] [address] Hct 34.4(L) 38.9 - 50.3 % PITA BARGER Comment:Testing performed by : [address] [address] Plt 165 150 - 400 K/cumm PITA BARGER Comment:Testing performed by : [facility], [address] [place] [address] MPV 10.7 9.1 - 12.3 fL [facility] RBC 3.94(L) 4.30 - 5.80 M/cumm [facility] MCV 87.3 81.3 - 96.4 fL [facility] MCH 28.4 27.1 - 33.3 pg [facility] MCHC 32.6 32.3 - 35.7 g/dL [facility] RDW CV 14.6 11.1 - 14.9 % [facility] RDW SD 46.6 35.7 - 48.1 fL [facility] NRBC abs 0.00 0.00 - 0.01 K/cumm [facility] ANC Prelim 5.36 1.50 - 6.50 K/cumm [facility] Comment: Interpretive Data The rapid ANC is a preliminary automated count and may vary from the final ANC (Neut Abs) reported in the WBC differential that follows. Current interpretive data was last revised 2024. Blood 10/16/2024 10:2 2 AM CDT 10/16/2024 10:22 AM CDT Marcella Taylor MD LAB BLOOD ORDERABLES Final Resul t Performing Organization Address City/[facility] Co de Phone Number [facility] Department [place] [employer] [place] [address] * Lactate dehydrogenase (LD) (10/16/2024 10:22 AM CDT) Lactate dehydrogenase (LDH) 245 100 - 250 Units/L Comment:Testing performed by : [facility], [address] [place] [address] Blood 10/16/2024 10:2 2 AM CDT 10/16/2024 10:22 AM CDT us Marcella Taylor MD LAB BLOOD ORDERABLES Final Resul t [facility] Department [employer] [place] [address] * (ABNORMAL) Comprehensive metabolic panel (10/16/2024 10:22 AM CDT) Sodium 138 135 - 145 mmol/L Comment:Testing performed by : [facility], [address] [place] [address] Potassium, pl 4.6 3.3 - 4.9 mmol/L [facility] Chloride 104 97 - 110 mmol/L [facility] CO2 26 22 - 32 mmol/L [facility] Anion gap 8 2 - 15 mmol/L [facility] BUN 41(H) 6 - 25 mg/dL [facility] Creatinine 5.47(H) 0.80 - 1.30 mg/dL [facility] Glucose 230(H) 70 - 199 mg/dL [facility] Comment: Interpretive Data Fasting glucose >/= [...] 2022. Calcium 8.4(L) 8.5 - 10.3 mg/dL [facility] Bilirubin, total 0.8 0.1 - 1.2 mg/dL [facility] Protein, pl 6.5 6.5 - 8.5 g/dL [facility] Albumin 3.7 3.5 - 5.0 g/dL [facility] Alk phos 84 40 - 130 Units/L [facility] ALT 12 7 - 55 Units/L [facility] AST 19 10 - 50 Units/L [facility] Blood 10/16/2024 10:2 2 AM CDT 10/16/2024 10:22 AM CDT us Marcella Taylor MD LAB BLOOD ORDERABLES Final Resul t [facility] Department [place] [address] * Vitamin B12 (10/16/2024 10:20 AM CDT) Vitamin B12 795 230 - 1,250 pg/mL Blood 10/16/2024 10:2 0 AM CDT 10/16/2024 1:49 PM CDT us Marcella Taylor MD LAB BLOOD ORDERABLES Final Resul t [facility] Department [place] [address] * PET/CT FDG Skull to Thigh (10/16/2024 [...] FDG-PET/CT IMAGING DATE OF STUDY: 10/16/2024 SCANNER: [facility] RADIOPHARMACEUTICAL: 16.31 mCi F-18 Fluorodeoxyglucose (FDG) i.v. [...] obtained. The study was interpreted on the Webl[employer] workstation. The mean liver SUV (reported for design quality engineer purposes) is 2.4. The total scanned area [...] FDG-PET/CT IMAGING DATE OF STUDY: 10/16/2024 SCANNER: [facility] RADIOPHARMACEUTICAL: 16.31 mCi F-18 Fluorodeoxyglucose (FDG) i.v. [...] obtained. The study was interpreted on the [employer] workstation. The mean liver SUV (reported for design quality engineer purposes) is 2.4. The total scanned area [...] AM CDT Narrative 10/11/2024 1:44 PM CDT [facility] - Department of Vascular Surgery, Vascular Laboratory [address] [place] [address] Dialysis Access Fistula/Graft Duplex Report Patient Name: JOSÉ LUIS GAMBLE : 1945 (79y ) Gender: M Study Date: 10/11/2024 10:49:25 AM Laborer Concrete Plant: GONZALO Location: [facility] Order Provider: GODFREY VILLARREAL Quality: Adequate [...] Arm Diameter 0.46 cm Rt Deep Vein [place] 58.40 cm/s Rt Outflow Distal Arm Depth 0.27 cm Rt Axillary Vein PSV 58.20 cm/s Rt Outflow Mid Arm Diameter 0.38 cm Rt Subclavian Vein 26.60 cm/s Rt Outflow Mid Arm Depth 0.56 cm Rt Outflow Vein (Graft) Volume Flow Average 310 cc/min Rt Outflow Proximal Arm Diameter 0.43 cm Rt Outflow Proximal Arm Depth 0.71 cm Rt Deep Vein [place] Diameter 0.43 cm Rt Deep Vein [place] Depth 2.10 cm Rt Inflow Artery Diameter 0.53 cm Diameter/Depth Value Units Velocities Value Units FINDINGS: Performing Laborer Concrete Plant: Jayda Dunn RVT. [place] Arterial Inflow Normal: No evidence of arterial [...] Electronically Signed By: Josias Cox MD FACS [phone] 10/11/2024 1:30:12 PM CDT Procedure Note Josias Cox MD - 10/11/2024 [facility] - Department of Vascular Surgery,Vascular Laboratory [address] [place] [id number] Dialysis Access Fistula/Graft Duplex Report Patient Name: JOSÉ LUIS GAMBLE : 1945 (79y ) Gender: M Study Date: 10/11/2024 10:49:25 AM Laborer Concrete Plant: GONZALO Location: [facility] Order Provider: GODFREY VILLARREAL Quality: Adequate [...] Arm Diameter 0.46 cm Rt Deep Vein [place] 58.40cm/s Rt Outflow Distal Arm Depth 0.27 cm Rt Axillary Vein PSV 58.20 cm/s Rt Outflow Mid Arm Diameter 0.38 cm Rt Subclavian Vein 26.60 cm/s Rt Outflow Mid Arm Depth 0.56 cm Rt Outflow Vein (Graft) Volume FlowAverage 310 cc/min Rt Outflow Proximal Arm Diameter 0.43 cm Rt Outflow Proximal Arm Depth 0.71 cm Rt Deep Vein [place] Diameter 0.43 cm Rt Deep Vein [place] Depth 2.10 cm Rt Inflow Artery Diameter 0.53 cm Diameter/Depth Value Units Velocities Value Units FINDINGS: Performing Laborer Concrete Plant: Jayda Dunn RVT. [place] Arterial Inflow Normal: No evidence of arterial [...] Josias Cox MD [facility] [phone] 10/11/2024 1:30:12 PM CDT Godfrey Villarreal MD IMG US PROCEDURES Final R esult * POCT glucose (09/20/2024 9:25 AM CDT) Glucose, POC 145 70 - 199 mg/dL Blood 09/20/2024 9:25 AM CDT 09/20/2024 9:25 AM CDT Godfrey Villarreal MD LAB POCT ORDERABLES - DEV ICE Final Result Performing Organization Address City/[facility]/ZIP Co de Phone Number [facility] Department [facility] [employer] [place] [address] * POCT glucose (09/20/2024 9:00 AM CDT) Glucose, POC 133 70 - 199 mg/dL Blood 09/20/2024 9:00 AM CDT 09/20/2024 9:00 AM CDT Godfrey Villarreal MD LAB POCT ORDERABLES - DEV ICE Final Result Performing Organization Address City/[facility]/ZIP Co de Phone Number [facility] [employer] [place] [address] * DC AN ELECTIVE ENDOTRACHEAL AIRWAY, DC AN PROCEDURE PLACEHOLDER (09/20/2024 7:59 AM CDT) Narrative Caridad Hernandez CRNA - 09/20/2024 7:59 AM CDT Caridad Hernandez CRNA 09/20/2024 8:00 AM Airway Patient location: OR Urgency: elective Date/time: 09/20/2024 7:36 AM Indications for airway management: anesthesia Difficult airway: no Staff: Supervising provider: Joshua Rodgers MD Placed by: ASSET PROTECTION MANAGER: Caridad Hernandez CRNA Emergent airway documentation: Risks [...] K POC 3.2(L) 3.3 - 4.9 mmol/L [facility] Comment: Interpretive Data Not all point of care methods assess for hemolysis. Confirm with instrument and retest K+ if not consistent with clinical signs and symptoms. Current Interpretive Data was last revised on 2023. Glucose, POC 165 70 - 199 mg/dL [facility] Hct, POC 33.0(L) 41.4 - 51.6 % [facility] Total Hb, POC 11.0(L) 13.8 - 17.2 g/dL [facility] Blood 09/20/2024 7:05 AM CDT 09/20/2024 7:05 AM CDT Godfrey Villarreal MD LAB POCT ORDERABLES - DEV ICE Final Result Performing Organization Address [facility] Co de Phone Number PITA [facility] Department [place] [address] * (ABNORMAL) eGFR (08/14/2024 11:18 AM CDT) Pathologist [facility] eGFR 10(L) >=60 mL/min/1. 73 m2 Comment: [...] ORDERABLES Final Resul t Performing Organization Address City/[facility]/ZIP Co de Phone Number [facility] Department [place] [address] * (ABNORMAL) Differential, auto (08/14/2024 11:18 AM CDT) Neutrophil abs 7.7(H) 1.5 - 6.5 K/cumm Comment:Testing performed by : [facility], [address] [place] [id number] Imm gran abs 0.1 0.0 - 0.1 K/cumm [facility] Lymphocyte abs 2.0 0.8 - 3.3 K/cumm [facility] Monocyte abs 0.8 0.2 - 0.8 K/cumm [facility] Eosinophil abs 0.4 0.0 - 0.5 K/cumm [facility] Basophil abs 0.1 0.0 - 0.1 K/cumm [facility] Neutrophil pct 69.7 % [facility] Comment: Interpretive Data Percent cell count reference ranges are not reported, since discordance with absolute values may lead to misinterpretation of CBC data. Current Interpretive Data was last revised on 2017. Imm gran pct 0.5 % [facility] Comment: Interpretive Data Percent cell count reference ranges are not reported, since discordance with absolute values may lead to misinterpretation of CBC data. Current Interpretive Data was last revised on 2017. Lymphocyte pct 17.9 % [facility] Comment: Interpretive Data Percent cell count reference ranges are not reported, since discordance with absolute values may lead to misinterpretation of CBC data. Current Interpretive Data was last revised on 2017. Monocyte pct 7.6 % [facility] Comment: Interpretive Data Percent cell count reference ranges are not reported, since discordance with absolute values may lead to misinterpretation of CBC data. Current Interpretive Data was last revised on 2017. Eosinophil pct 3.6 % [facility] Comment: Interpretive Data Percent cell count reference ranges are not reported, since discordance with absolute values may lead to misinterpretation of CBC data. Current Interpretive Data was last revised on 2017. Basophil pct 0.7 % [facility] Comment: Interpretive Data Percent cell count reference ranges are not reported, since discordance with absolute values may lead to misinterpretation of CBC data. Current Interpretive Data was last revised on 2017. Blood 08/14/2024 11:1 8 AM CDT 08/14/2024 11:18 AM CDT us Marcella Taylor MD LAB BLOOD ORDERABLES Final Resul t [facility] Department [place] [address] * (ABNORMAL) CBC with auto differential (08/14/2024 11:18 AM CDT) [facility] WBC 11.0(H) 3.8 - 9.9 K/cumm Comment:Testing performed by : [facility], [address] [place] [address] Hgb 10.3(L) 13.0 - 17.5 g/dL [facility] Comment:Testing performed by : [address] [address] Hct 32.1(L) 38.9 - 50.3 % [facility] Comment:Testing performed by : [address] [address] Plt 187 150 - 400 K/cumm [facility] Comment:Testing performed by : [address] [address] MPV 9.6 9.1 - 12.3 fL [facility] RBC 3.88(L) 4.30 - 5.80 M/cumm [facility] MCV 82.7 81.3 - 96.4 fL [facility] MCH 26.5(L) 27.1 - 33.3 pg [facility] MCHC 32.1(L) 32.3 - 35.7 g/dL [facility] RDW CV 17.1(H) 11.1 - 14.9 % [facility] RDW SD 51.6(H) 35.7 - 48.1 fL [facility] NRBC abs 0.00 0.00 - 0.01 K/cumm [facility] Blood 08/14/2024 11:1 8 AM CDT 08/14/2024 11:18 AM CDT us Marcella Taylor MD LAB BLOOD ORDERABLES Final Resul t [facility] Department [place] [address] * (ABNORMAL) Lactate dehydrogenase (LD) (08/14/2024 11:18 AM CDT) [facility] Lactate dehydrogenase (LDH) 343(H) 100 - 250 Units/L Comment:Testing performed by : [facility], [address] [place] [address] Blood 08/14/2024 11:1 8 AM CDT 08/14/2024 11:18 AM CDT Marcella Taylor MD LAB BLOOD ORDERABLES Final Resul t [facility] Department [place] [address] * (ABNORMAL) Comprehensive metabolic panel (08/14/2024 11:18 AM CDT) Sodium 142 135 - 145 mmol/L Comment:Testing performed by : [facility], [address] [place] [address] Potassium, pl 4.7 3.3 - 4.9 mmol/L [facility] Chloride 107 97 - 110 mmol/L [facility] CO2 27 22 - 32 mmol/L [facility] Anion gap 8 2 - 15 mmol/L [facility] BUN 41(H) 6 - 25 mg/dL [facility] Creatinine 5.63(H) 0.80 - 1.30 mg/dL [facility] Glucose 170 70 - 199 mg/dL [facility] Comment: Interpretive Data Fasting glucose >/= [...] 2022. Calcium 8.0(L) 8.5 - 10.3 mg/dL [facility] Bilirubin, total 0.5 0.1 - 1.2 mg/dL [facility] Protein, pl 6.5 6.5 - 8.5 g/dL [facility] Albumin 3.6 3.5 - 5.0 g/dL [facility] Alk phos 83 40 - 130 Units/L [facility] ALT 11 7 - 55 Units/L [facility] AST 22 10 - 50 Units/L [facility] Blood 08/14/2024 11:1 8 AM CDT 08/14/2024 11:18 AM CDT us Marcella Taylor MD LAB BLOOD ORDERABLES Final Resul t [facility] Department [place] [address] * US Vein Mapping Fistula Access, Bilateral (08/12/2024 9:16 AM CDT) Anatomical Region Laterality Modality Vascular Bilateral Ultrasound 08/12/2024 7:00 AM CDT Narrative 08/12/2024 12:47 PM CDT [facility] - Department of Vascular Surgery, Vascular Laboratory [address] [place] [address] Upper Extremity Vein Mapping Report Patient Name: JOSÉ LUIS GAMBLE : 1945 (78y 10m) Study Date: 08/12/2024 7:00:58 AM Gender: M Laborer Concrete Plant: GONZALO Location: [facility] Provider: GODFREY VILLARREAL Quality: Adequate Order [...] Value Units Left Value Units FINDINGS: Performing Laborer Concrete Plant: Jayda Dunn RVT. Bilateral: Venous Doppler signals [...] Josias Cox MD [facility] [phone] 08/12/2024 12:46:53 PM CDT Procedure Note Josias Cox MD - 08/12/2024 [facility] - Department of Vascular Surgery,Vascular Laboratory [address] [place] [address] Upper Extremity Vein Mapping Report Patient Name: JOSÉ LUIS GAMBLE : 1945 (78y 10m) Study Date: 08/12/2024 7:00:58 AM Gender: M Laborer Concrete Plant: GONZALO Location: [facility] Provider: GODFREY VILLARREAL Quality: Adequate Order [...] Value Units Left Value Units FINDINGS: Performing Laborer Concrete Plant: Jayda Dunn RVT. Bilateral: Venous Doppler signals [...] Josias Cox MD [facility] [phone] 08/12/2024 12:46:53 PM CDT us Godfrey Villarreal MD IMG US PROCEDURES Final R esult * SCAN - LABS (08/08/2024) us Provider Scanning Final Result * (ABNORMAL) Hemoglobin A1c (07/11/2024 9:14 PM NUTRITION TEACHER) Hgb A1C 6.3(H) 4.0 - 5.6 % Estimated Average Glucose 134 mg/dL [facility] Comment: The ADA recommends reporting an estimated Average Glucose (eAG) with all Hemoglobin A1c results using the equation derived from a study of 507 normal and diabetic adults. Minority populations were underrepresented and children were not included. (Diabetes Care 2020; 43(S1): S66-S76). The eAG is not equivalent to a fasting glucose. Blood 07/11/2024 9:14 PM NUTRITION TEACHER 07/11/2024 9:39 PM NUTRITION TEACHER Narrative [facility] - 07/12/2024 8:23 AM NUTRITION TEACHER Reflex us Rex Reid MD LAB BLOOD ORDERABLES Final Resul t [facility] Department [place] [address] * (ABNORMAL) Albumin Creatinine Ratio, Urine (05/13/2024 9:16 AM NUTRITION TEACHER) Albumin Ur 3,688.8 mg/L Comment: Interpretive Data No reference range established. Current interpretive data was last revised 2018. Creatinine Ur 59.2 mg/dL [facility] Comment: Interpretive Data No reference range established. Current interpretive data was last revised 2018. Albumin Creatinine Ratio, Ur 6,231(H) 1 - 29 mg/g [facility] Urine 05/13/2024 9:16 AM NUTRITION TEACHER 05/13/2024 2:55 PM NUTRITION TEACHER Matt Kendrick MD LAB URINE ORDERABLE S Final Result [facility] [address] [place] [address] * (ABNORMAL) Lipid panel (05/13/2024 9:16 AM NUTRITION TEACHER) Cholesterol 128 30 - 199 mg/dL Comment: [...] ratio 3 [facility] Blood 05/13/2024 9:16 AM NUTRITION TEACHER 05/13/2024 2:55 PM NUTRITION TEACHER Matt Kendrick MD LAB BLOOD ORDERABLE S Final Result [facility] [address] Department [place] [address] * CT abdomen pelvis without contrast (12/14/2023 [...]
--- OUTSIDE RECORDS SUMMARY | 2024-10-29 22:10 | XMS_ITS | Clinical Summary ---
Author Organization [facility] Address [address], [facility] [address] [place] [address] Phone Care Team Providers Care Bread Baker Name Role Phone Gerard Mo Primary Care Provider [phone] Allergies No known active allergies Medications citalopram [...] mouth 3 times daily as needed. Active [place]-3 Fatty Acids (FISH OIL PO) Take by [...] on file Legal Sex Male 2:48 PM SURVEILLANCE SYSTEMS ANALYST Gender Identity Not on file Sexual Orientation Not on file Last Filed Vital Signs Vital Sign Reading Time Taken Comments Blood Pressure 132/82 07/07/2016 2:43 PM SURVEILLANCE SYSTEMS ANALYST Pulse 73 07/07/2016 2:43 PM SURVEILLANCE SYSTEMS ANALYST Temperature 37 C (98.6 F) 07/07/2016 2:43 PM SURVEILLANCE SYSTEMS ANALYST Respiratory Rate - - Oxygen Saturation 97% 07/07/2016 2:43 PM SURVEILLANCE SYSTEMS ANALYST Inhaled Oxygen Concentration - - Weight 101.6 kg (224 lb) 07/07/2016 2:43 PM SURVEILLANCE SYSTEMS ANALYST Height 175.3 cm (5' 9) 07/07/2016 2:43 PM SURVEILLANCE SYSTEMS ANALYST Body Mass Index 33.08 07/07/2016 2:43 PM SURVEILLANCE SYSTEMS ANALYST Plan of Treatment Health Maintenance Due Date [...] topic Insurance MEDICARE [employer]CIAL GENERIC Care Teams Bread Baker Relationship Specialty Start Date End Date Gerard Mo [address] [place] [address] PCP - General Family Medicine 07/04/16
--- NOTE | 2024-10-29 23:59 | PC.NURSE ---
pt returned from ct. no current distress noted. Pt feels fine and wants to go home. Im hungry also.
[2024-10-30] VITALS (19 sets, daily range): BP systolic 128–166; BP diastolic 41–70; PULSE 62–71; RESP 13–28; O2SAT 95–100
== END 2024-10-30 03:52 | disposition home or self-care (01) ==
PROVIDERS: Emergency Medicine; Physician Assistant; Emergency Provider Registered Nurse; PCP Family Medicine
DX: R07.89 Other chest pain (principal); I25.10 Atherosclerotic heart disease of native coronary artery without angina pectoris; Z95.1 Presence of aortocoronary bypass graft; E11.22 Type 2 diabetes mellitus with diabetic chronic kidney disease; N18.6 End stage renal disease; Z99.2 Dependence on renal dialysis; Z87.891 Personal history of nicotine dependence
CPT/HCPCS: 36415; 71046; 71250; 80053; 83690; 83880; 84484; 85025; 85610; 85730; 93005; 99284; J1938

== ENCOUNTER 2024-11-10 10:26 | Emergency (ER) | payer MEDICARE, OTHER, SELFPAY ==
--- NOTE | ~2024-11-10 | XR_ITS ---
Left ankle Technique: AP, oblique, and lateral views were obtained. Clinical History: Pain Findings: No acute fracture or dislocation is seen. There is a large bony excrescence from the latera l aspect of the distal tibial shaft region, which priors is a large osteochondroma with associated ch ronic remodeling of the distal fibula. Ankle mortise and other visualized joint spaces are preserved. Soft tissues are otherwise unremarkable. 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 Reviewed, dictated and finalized at location M. 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
[2024-11-10 10:27] VITALS: BP 171/51; PULSE 70; RESP 16; TEMP 36.5; O2SAT 98
--- OUTSIDE RECORDS SUMMARY | 2024-11-10 10:29 | XMS_ITS ---
Author Organization [facility] Address [address] [place] [address] Care Team Providers Care Mash Tub Cooker Name Role Phone Marcella Taylor MD Unavailable Anselmo Sampson MD Primary Care Provider [phone] Godfrey Villarreal MD Unavailable Active Problems Problem Noted Date Diagnosed Date End stage renal disease on dialysis 10/14/2024 ESRD (end stage renal disease) on dialysis 08/27 ESRD (end stage renal disease) 07/11/2024 Assessment & Plan (07/14/2024 9:38 AM UNDER CUTTING MACHINE OPERATOR): Patient has had progression of CKD to now ESRD needing dialysis initiation given c/f uremia symptoms. Directly admitted per renal. Underwent tunneled dialysis catheter by IR on 07/12 and received HD on 07/12 and 07/13 -Hemodialysis as per Nephrology -Continue home bicarb URI (upper respiratory infection) 07/11/2024 Assessment & Plan (07/12/2024 12:59 PM UNDER CUTTING MACHINE OPERATOR): Suspected viral. COVID/flu/RSV neg 07/09. CXR neg 07/10. Was prescribed azithromycin on 07/09 which he took for 3 days. Will not continued further -Supportive care Hypomagnesemia 01/02/2024 CKD (chronic kidney disease) stage 4, GFR 15-29 ml/min 04/16/2023 Assessment & Plan (07/25/2023 10:06 AM UNDER CUTTING MACHINE OPERATOR): Chronic problem. Managed by Dr Flores. Has f/u appt at end of the month. Assessment & Plan (04/16/2023 8:48 PM UNDER CUTTING MACHINE OPERATOR): Chronic, stable Following with Gas Station Attendant Acute kidney injury 02/24/2023 (HFpEF) heart failure with preserved ejection fr action 02/24/2023 Assessment & Plan (02/24/2023 3:38 PM CDT): TTE with EF 77% and at least grade 1 diastolic dysfunction (indeterminate on last TTE). Not in exacerbation -Cont home lasix 40mg -strict I&Os, daily weights -F/u with OSH Real Estate Manager Dr. Payton CAD (coronary artery disease) 02/24/2023 Assessment & Plan (02/24/2023 3:38 PM CDT): S/p prior 5v CABG in 2012 -Cont statin and coreg -Intolerant of PATI-I/ARB due to worsening renal function -ASA held due to procedure -F/u with Cardiology outpatient Hyperlipidemia associated with type 2 diabetes aimee ulloa 02/24/2023 Assessment & Plan (07/11/2024 9:32 PM UNDER CUTTING MACHINE OPERATOR): -Continue home welchol -Atorvastatin for home pitavastatin (non-formulary) Assessment & Plan (05/13/2024 9:10 AM UNDER CUTTING MACHINE OPERATOR): Continue statin therapy Assessment & Plan (11/16/2023 11:18 AM CDT): Chronic problem. Currently taking Pitavatatin 4mg daily. Last lipid panel: 02/24/23 LDL=76, SW=077. Assessment & Plan (07/25/2023 10:22 AM UNDER CUTTING MACHINE OPERATOR): Chronic problem. Currently taking Pitavatatin 4mg daily. Last lipid panel: 02/24/23 LDL=76, ZO=405. Assessment & Plan (04/16/2023 8:46 PM UNDER CUTTING MACHINE OPERATOR): On Pitavastatin therapy Tolerating well Assessment & Plan (02/24/2023 3:39 PM CDT): Cont statin and colesevelam Type 2 diabetes mellitus wit h stage 4 chronic kidney disease, with long-term current use of insulin 02/24/2023 Assessment & Plan (07/11/2024 9:31 PM UNDER CUTTING MACHINE OPERATOR): F/b endo. Home regimen: tresiba 5U QHS, aspart 6-8U TID with meals Pt/ report issues with hypoglycemia lately at home. -Will start with SSI for now; titrate/add scheduled insulin pending glucose trends Assessment & Plan (05/13/2024 9:10 AM UNDER CUTTING MACHINE OPERATOR): Chronic, uncontrolled, worsening Hemoglobin A1c 6.8 [...] soon Daily foot care Advise to call [employer] and get the dexcom G 6 sensor to switch to G7 Check labs today Follow-up in 6 months Assessment & Plan (11/16/2023 11:17 AM CDT): Chronic problem. A1c stable at 6.1% but having overnight lows & occasionally lows after LN. Call your supply [employer] to switch from Dexcom G6 to Dexcom G7. Lower tresiba to 6 units nightly. If you notice that your over night readings are too high--start to increase by 1 unit weekly until they return to normal. If you're eating a employment assistant lunch--drop the Fiasp to 6 units. Current medications: Tresiba 6 units at bedtime Fiasp 4 units with breakfast & dinner, 8 units with lunch (6 units if employment assistant lunch) If blood sugar is between 151-200, add 1 units. If blood sugar is between 201-250, add 2 units. If blood sugar is between 251-300, add 3 units. If blood sugar is between 301-350, add 4 units. UTD on DM eye exam (06/15/23 at [facility] UTD on labs. Discussed with Navdeep Payton: [...] infection. Assessment & Plan (07/25/2023 10:02 AM UNDER CUTTING MACHINE OPERATOR): Chronic problem. A1c stable at 6.1% but having overnight lows & occasionally lows after LN. Call your supply company to switch from Dexcom G6 to Dexcom G7. Lower tresiba to 6 units nightly. If you notice that your over night readings are too high--start to increase by 1 unit weekly until they return to normal. If you're eating a employment assistant lunch--drop the Fiasp to 6 units. Current medications: Tresiba 6 units at bedtime Fiasp 4 units with breakfast & dinner, 8 units with lunch (6 units if employment assistant lunch) If blood sugar is between 151-200, add 1 units. If blood sugar is between 201-250, add 2 units. If blood sugar is between 251-300, add 3 units. If blood sugar is between 301-350, add 4 units. DM eye exam 06/2023 at [facility]. Letter sent to get copy of report. [...] infection. Assessment & Plan (04/16/2023 8:47 PM UNDER CUTTING MACHINE OPERATOR): Chronic , improving overall hyperglycemia but [...] TID +SSI; adjust PRN -F/u with OSH as400 analyst Proteinuria 02/24/2023 Assessment & Plan (02/25/2023 7:46 [...] 11/04/2021 Assessment & Plan (07/12/2024 12:57 PM UNDER CUTTING MACHINE OPERATOR): Getting aranesp outpatient -Trend CBC -Transfuse [...] 11/04/2021 Assessment & Plan (07/11/2024 9:30 PM UNDER CUTTING MACHINE OPERATOR): -Continue home amlodipine, hydralazine, coreg Assessment & Plan (05/13/2024 9:11 AM UNDER CUTTING MACHINE OPERATOR): Chronic, fairly controlled for pt age Continue amlodipine Managed by nephrology Assessment & Plan (11/16/2023 11:18 AM CDT): Chronic problem. Controlled on current Carvedilol 25mg bid, amlodipine 10mg daily, lasix 20mg daily. not taking hydralazine currently Assessment & Plan (07/25/2023 10:05 AM UNDER CUTTING MACHINE OPERATOR): Chronic problem. Controlled on current Carvedilol 25mg bid, amlodipine 10mg daily, lasix 20mg daily. 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
--- OUTSIDE RECORDS SUMMARY | 2024-11-10 10:29 | XMS_ITS | Data Portability ---
Author Organization [facility] [place], Main Office Address [address] [place] [address] Care Team Providers Care Arson And Bomb Investigator Name Role Phone AIMEE VILLAVICENCIO Primary Care Provider Assessment No assessment recorded. Plan of Treatment Reminders Order Date Submit Date Provider Last Modified By Organization Details Last Modified Time Details Appointments None recorded. Lab CMP, serum or plasma 2022 023 [facility] [place] (Lab), [address] [place], [address], 3 11:24:43 HbA1c (hemoglobin A1c), blood 2022 023 [facility] [place] (Lab), [address] [place], [address], 3 10:08:31 microalbumi n/creatinin e, mass ratio, urine 2022 023 [facility] [place] (Lab), [address] [place], [address], 3 10:07:27 TSH + free T4, serum 2022 023 [facility] [place] (Lab), [address] [place], [address], 3 11:32:36 Referral None recorded. Procedures None recorded. Surgeries None recorded. Imaging None recorded. Medication Orders Tresiba FlexTouch U-100 insulin 100 unit/mL (3 mL) subcutaneou s pen 2022 023 [facility]/Pharmacy #[id number], [address] [place], [address], 3 11:22:41 Fiasp FlexTouch U-100 Insulin 100 unit/mL (3 mL) subcutaneou s pen 2022 023 [facility]/Pharm[facility] #[id number], [address] [place], [address], 3 11:38:50 Patient TargetsNo targets recorded. Patient InstructionsNo instructions recorded. Reason for Referral None Reported. Results Created Date Observation Date Name Description Value Unit Range Abnormal Flag Note LastModifiedBy Organization Detail LastModifiedTime Result Notes None recorded. Problems Name Problem SNOMED Code Status Onset Date Resolution Date Notes Provider Name and Address Organization Details Recorded Time Uncontrolled type 2 diabetes mellitus 413060089 Active 2022 Not Available [facility] 3 17:39:17 Well controlled type 2 diabetes mellitus 678035372 Active 2022 Not Available [facility] 3 17:39:18 Problem Notes None recorded. Medical [...] Address Organization Details Last Updated DateTime 11/25/2022 40991.4 6 g 97.5 [degF] 59 /min 167 mm[Hg] 72 mm[Hg] MATTHIAS Graves [place] [address] [facility] 3 10:49:15 Date Recorded Body weight Body mass index (BMI) Body height Respiratory rate Body temperature Heart rate Systolic blood pressure Diastolic blood pressure Provider Name and Address Organization Details Last Updated DateTime 3 51510.6 1 g 30.6 kg/m2 177.8 cm 14 /min 97.8 [degF] 55 /min 145 mm[Hg] 71 mm[Hg] Joann Servin RN [employer] 12:43:00 Social History Question Answer Notes LastModified by [employer] Details LastModified Time Tobacco Smoking Status Former Smoker Letha Ramsey, RMA null, [employer] 11/25/2022 10:51:36 Are You Blind Or Do [...] Functional Status Question Answer Note LastModified by [employer] Details LastModified Time Do you use any [...] available 11/25/2022 10:51:14 Medical History Condition Response CANCER: SPECIFY Y BLOOD TRANSFUSION ANEMIA/BLOOD DISORDER Y SURGERY Y DIABETES, TYPE Y KIDNEY DISEASE Y HEART DISEASE/HEART PROBLEMS Y RADIATION / CHEMOTHERAPY Y HYPERTENSION Y HIGH CHOLESTEROL / HYPERLIPIDEMIA Y Past Encounters Encounter ID Performer Location Encounter Start Date Encounter Closed Date Diagnosis/Indication Diagnosis SNOMED-CT Code Diagnosis ICD10 Code Diagnosis Note [id number] Montse Navarro MD [facility] [place] [address] [place] [address] 11/25/2022 10:38:03 11/25/2022 11:47:40 Uncontrolled type 2 diabetes mellitus 354703188 E11.65 A1C of 6.3%- Will transition off [...] he chooses to go outside of the [facility] system to obtain labwork he was [...] ing. Thank you for this consultati on. [id number] Montse Navarro MD [facility] [place] [address] [place] [address] 12/08/2022 10:07:08 12/08/2022 11:11:16 Uncontrolled type 2 diabetes mellitus 965188706 E11.65 Patient tolerated placement of dexcom sensor without pain or site reaction; patient is aware to change sensor every 10 days. [id number] Montse Navarro MD [facility] [place] [address] [place] [address] 01/09/2023 12:17:38 01/09/2023 13:54:08 Well controlled type 2 diabetes mellitus 215573443 E11.9 A1C of 6.5% in range- continue [...] [employer]PERATING [employer] - LOCAL [address] Navdeep Ganzer [id number] Navdeep Ganzer 11/25/2022 1 [place] Navdeep M Ganzer [id number] Navdeep Ganzer 12/08/2022 2 EMPLOYERS AND OPERATING ENGINEERS - LOCAL [address] Navdeep Ganzer [id number] Navdeep Ganzer 12/08/2022 1 [place] Navdeep M Ganzer [id number] Navdeep Ganzer 01/09/2023 2 EMPLOYERS AND OPERATING ENGINEERS - LOCAL [address] Navdeep Ganzer [id number] Navdeep Ganzer 01/09/2023 1 [place] Navdeep M Ganzer [id number] Navdeep Ganzer Notes Date Note Type [...] bedtime. labs from 07/28:Cr 2.65 mg/dlGFR 24 [id number] 6.3%H/H low Montse Navarro MD [address], [place], [address], [facility] 11/25/2022 22:30:36 12/08/2022 text/html 77 yo male comes in for dexcom sensor placement in management of type 2 DM. Montse Navarro MD [address], [address], [place], [address], [facility] 12/23/2022 21:45:41 01/09/2023 text/html 77 yo male [...] ml/min Montse Navarro MD [address], [facility] [address], [place], [address], [place] [facility] [place] [facility] 01/09/2023 13:46:23
--- OUTSIDE RECORDS SUMMARY | 2024-11-10 10:29 | XMS_ITS | Encounter Summary ---
Author Organization [facility] Address [address] [place] [address] Phone Care Team Providers Care Manager Balance Name Role Phone Marcella Taylor MD Unavailable Anselmo Sampson MD Primary Care Provider [phone] Godfrey Villarreal MD Unavailable [phone] Encounter Details Date Type Department Care Team (Latest Contact Info) Description 10/16/2024 Results Follow-Up [facility] Oncology [address] [place] [address] Jose Antonio Gamble Lactate dehydrogenase (LD), Comprehensive [...] on file Legal Sex Male 6:14 AM CONSERVATION COORDINATOR Gender Identity Not on file Sexual [...] documented in this encounter Plan of Treatment Not on file documented as of this encounter Visit Diagnoses Not on filedocumented in this encounter Care Teams Manager Balance Relationship Specialty [place] [address] [address] PCP - General Family Practice 04/26/22 Marcella Taylor MD [address] [place] [address] [address] [place] [address] Medical Oncologist/Screen Examiner Medical Oncology 08/08/20 Godfrey Villarreal MD [address] [facility] [address]108[address]10[address]06 [place] [address] Surgeon Vascular Surgery 09/20/24 documented as of this encounter
--- OUTSIDE RECORDS SUMMARY | 2024-11-10 10:29 | XMS_ITS | Referral Summary ---
Author Organization [facility] al Address [address] [place] [address] Care Team Providers Care Sprinkler Fitter Apprentice Name Role Phone Marcella Taylor MD Unavailable Anselmo Sampson MD Primary Care Provider [phone] Godfrey Villarreal MD Unavailable Encounters Date Type Department Care Team Description 11/08/2024 Telephone [facility] Surgery [address] [facility] 8th [place] [address] [place] [address] Godfrey Villarreal MD 10/18/2024 11:59 PM CDT Anesthesia Event [facility] Operating Room 1 [place] [address] Maryjo Galicia NP 11/01/2024 Documentation [facility] Surgery [address] [facility] Floor 1 [place] [address] Godfrey Villarreal MD 10/31/2024 Telephone [facility] Oncology [address] [place] [address] Valerie Aguirre CMA 10/30/2024 Telephone [facility] Surgery [address] [facility] Floor 1 [place] [address] Godfrey Villarreal MD 10/16/2024 Results Follow-Up [facility] Oncology [address] [place] [phone] Jose Antonio Gamble Lactate dehydrogenase (LD), Comprehensive metabolic panel, CBC with auto differential, Additional followed-up results: 3 10/16/2024 11:00 AM CDT Office Visit [facility] Oncology [address] [place] [phone] Ekaterina Chanel NP Low vitamin B12 level (Primary Dx); GIST (gastrointestinal stroma tumor), malignant, colon (HCC); 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) 10/16/2024 10:30 AM CDT Lab [address] [address] GIST (gastrointestinal stroma tumor), malignant, colon (HCC); 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); Low vitamin B12 level 10/16/2024 8:39 AM CDT - 10/16/2024 11:59 PM CDT Hospital Encounter [facility] [address] [place] [address] Discharge Disposition: Discharge to home or self care 10/16/2024 7:18 AM CDT - 10/16/2024 11:59 PM CDT Hospital Encounter [facility] [address] [place] [address] GIST (gastrointestinal stroma tumor), malignant, colon (HCC); 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) Discharge Disposition: Discharge to home or self care 10/14/2024 10:30 AM CDT Office Visit [facility] Vascular Surgery [address] [place] [address] Medical Office Building [address] [place] [address] Godfrey Villarreal MD ESRD (end stage renal disease) (HCC) (Primary Dx); Encounter for surgical aftercare following surgery on the circulatory system 10/11/2024 11:00 AM CDT Ancillary Procedure [facility] Vascular Lab Vascular Surgery [address] [place] [address] [address], [address] [place] [address] End stage renal disease (HCC) 10/09/2024 Orders Only [facility] Oncology [address] [place] [address] Jose Antonio Gamble 10/09/2024 Telephone [facility] [place] [facility] [address] [facility] [address] [place] [address] Matt Nicholson MD 09/20/2024 Orders Only [facility] Vascular Surgery [facility] Office Building [address] [place] [phone] Godfrey Villarreal MD End stage renal disease (HCC) (Primary Dx) 09/20/2024 7:30 AM CDT - 09/20/2024 10:40 AM CDT Surgery [facility] Operating Room 1 [place] [phone] Godfrey Villarreal MD CREATION 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 09/20/2024 7:24 AM CDT Anesthesia Event [facility] Operating Room 1 [place] [phone] Joshua Rodgers MD Gangloff, Kerry Marie, NP 09/20/2024 5:44 AM CDT - 09/20/2024 11:38 AM CDT Hospital Encounter [facility] Operating Room 1 [place] [phone] Godfrey Villarreal MD ESRD (end stage renal disease) on dialysis (HCC) (Primary Dx) Discharge Disposition: Discharge to home or self care 09/19/2024 Telephone [facility] Vascular Surgery [facility] Office Building [address] [place] [phone] Godfrey Villarreal MD 08/27/2024 Telephone [facility] Surgery [address] [place] [address] Floor 1 [place] [phone] Godfrey Villarreal MD 08/26/2024 Telephone [facility] Surgery [address] [place] [address] Floor 1 [place] [address] Godfrey Villarreal MD 08/14/2024 11:30 AM CDT Lab [address] [address] GIST (gastrointestinal stroma tumor), malignant, colon (HCC); 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 08/12/[address] [address] Gamble, Thera A. 08/12/2024 9:45 AM CDT Office Visit [facility] Vascular Surgery [address] [place] [address] Medical Office Building [address] [place] [address] Godfrey Villarreal MD ESRD (end stage renal disease) (HCC) (Primary Dx) 08/12/2024 8:45 AM CDT Ancillary Procedure [facility] Vascular Lab Vascular Surgery [address] [place] [address] [address] [place] [address] ESRD (end stage renal disease) (HCC) from [...] (two) times a day with meals Active jgozlwu-lalgmbsmw-p inc 333-133-5 mg tabletIndications:V itamin Deficiency Prevention [...] long-term current use of insulin ([facility]) Use daily or as directed for monitoring [...] long-term current use of insulin ([facility]) Check blood sugar 3 times daily [...] long-term current use of insulin ([facility]) Inject 0.06 mL (6 Units total) [...] 1 tablet (4 mg total) by mouth immigration law specialist before breakfast 2023 Active cyanocobalamin (Vitamin B-12) [...] diabetes mellitus, Informant: Self, Reported on 10/18/2024 FIASP 100 unit/mL (3 mL) pen for [...] 07/11/2024 Assessment & Plan (07/14/2024 9:38 AM RN REHABILITATION): Patient has had progression of CKD to now ESRD needing dialysis initiation given c/f uremia symptoms. Directly admitted per renal. Underwent tunneled dialysis catheter by IR on 07/12 and received HD on 07/12 and 07/13 -Hemodialysis as per Nephrology -Continue home bicarb URI (upper respiratory infection) 07/11/2024 Assessment & Plan (07/12/2024 12:59 PM RN REHABILITATION): Suspected viral. COVID/flu/RSV neg 07/09. CXR neg 07/10. Was prescribed azithromycin on 07/09 which he took for 3 days. Will not continued further -Supportive care Hypomagnesemia 01/02/2024 CKD (chronic kidney disease) stage 4, GFR 15-29 ml/min 04/16/2023 Assessment & Plan (07/25/2023 10:06 AM RN REHABILITATION): Chronic problem. Managed by Dr Flores. Has f/u appt at end of the month. Assessment & Plan (04/16/2023 8:48 PM RN REHABILITATION): Chronic, stable Following with Instructor Of Nursing Acute kidney injury 02/24/2023 (HFpEF) heart failure with preserved ejection fr action 02/24/2023 Assessment & Plan (02/24/2023 3:38 PM CDT): TTE with EF 77% and at least grade 1 diastolic dysfunction (indeterminate on last TTE). Not in exacerbation -Cont home lasix 40mg -strict I&Os, daily weights -F/u with OSH City Driver Dr. Payton CAD (coronary artery disease) 02/24/2023 Assessment & Plan (02/24/2023 3:38 PM CDT): S/p prior 5v CABG in 2012 -Cont statin and coreg -Intolerant of PATI-I/ARB due to worsening renal function -ASA held due to procedure -F/u with Cardiology outpatient Hyperlipidemia associated with type 2 diabetes aimee ulloa 02/24/2023 Assessment & Plan (07/11/2024 9:32 PM RN REHABILITATION): -Continue home welchol -Atorvastatin for home pitavastatin (non-formulary) Assessment & Plan (05/13/2024 9:10 AM RN REHABILITATION): Continue statin therapy Assessment & Plan (11/16/2023 11:18 AM CDT): Chronic problem. Currently taking Pitavatatin 4mg daily. Last lipid panel: 02/24/23 LDL=76, OO=829. Assessment & Plan (07/25/2023 10:22 AM RN REHABILITATION): Chronic problem. Currently taking Pitavatatin 4mg daily. Last lipid panel: 02/24/23 LDL=76, RI=253. Assessment & Plan (04/16/2023 8:46 PM RN REHABILITATION): On Pitavastatin therapy Tolerating well Assessment & Plan (02/24/2023 3:39 PM CDT): Cont statin and colesevelam Type 2 diabetes mellitus wit h stage 4 chronic kidney disease, with long-term current use of insulin 02/24/2023 Assessment & Plan (07/11/2024 9:31 PM RN REHABILITATION): F/b endo. Home regimen: tresiba 5U QHS, aspart 6-8U TID with meals Pt/ report issues with hypoglycemia lately at home. -Will start with SSI for now; titrate/add scheduled insulin pending glucose trends Assessment & Plan (05/13/2024 9:10 AM RN REHABILITATION): Chronic, uncontrolled, worsening Hemoglobin A1c 6.8 A1c [...] soon Daily foot care Advise to call [facility] and get the dexcom G 6 sensor to switch to G7 Check labs today Follow-up in 6 months Assessment & Plan (11/16/2023 11:17 AM CDT): Chronic problem. A1c stable at 6.1% but having overnight lows & occasionally lows after LN. Call your [employer] to switch from Dexcom G6 to Dexcom G7. Lower tresiba to 6 units nightly. If you notice that your over night readings are too high--start to increase by 1 unit weekly until they return to normal. If you're eating a medical research assistant lunch--drop the Fiasp to 6 units. Current medications: Tresiba 6 units at bedtime Fiasp 4 units with breakfast & dinner, 8 units with lunch (6 units if medical research assistant lunch) If blood sugar is between 151-200, add 1 units. If blood sugar is between 201-250, add 2 units. If blood sugar is between 251-300, add 3 units. If blood sugar is between 301-350, add 4 units. UTD on DM eye exam (06/15/[address] [facility]). UTD on labs. Discussed with José Luis [...] infection. Assessment & Plan (07/25/2023 10:02 AM RN REHABILITATION): Chronic problem. A1c stable at 6.1% but having overnight lows & occasionally lows after LN. Call your [employer] to switch from Dexcom G6 to Dexcom G7. Lower tresiba to 6 units nightly. If you notice that your over night readings are too high--start to increase by 1 unit weekly until they return to normal. If you're eating a medical research assistant lunch--drop the Fiasp to 6 units. Current medications: Tresiba 6 units at bedtime Fiasp 4 units with breakfast & dinner, 8 units with lunch (6 units if medical research assistant lunch) If blood sugar is between [...] infection. 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 Controlled on current Carvedilol 25mg bid, amlodipine 10mg daily, lasix 20mg daily. not taking hydralazine currently Assessment & Plan (07/25/2023 10:05 AM RN REHABILITATION): Chronic problem. Controlled on current Carvedilol 25mg bid, amlodipine 10mg daily, lasix 20mg daily. 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 Author Autogenerat ed Goal Care Plan Autogenerated Problem No Keisha Chamberlain NP Medical Devices Implanted Type Area Anesthesiology Medical Doctor Device Identifier Shelf Expiration Date Model / Serial / Lot Stent- 8 Implanted:04/19 by [facility], Carol Esquivel MD (Quantity not on file) Stent Heart Description:1.5 or 3 Nazia N ormal Mode Scan 15 rest 5 [employer] Duraflow Embosafe 15.5fr 28cm Basic 2 Lumen Kit Catheter [id number] - [id number] Implanted:Qty: 1 on 07/12/2024 at [facility] [employer] 08/02/2026 [id number] 25 / / [id number] Procedures Procedure Name Priority Date/Time Associated Diagnosis [...] (HCC) 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) HEMODIALYSIS ACCESS Schedule Routine, Read Routine (OP Routine) 10/11/2024 11:22 AM CDT End stage renal disease (HCC) POCT GLUCOSE DEVICE Routine 09/20/2024 9 :25 AM CDT POCT GLUCOSE DEVICE Routine 09/20/2024 9 :00 AM CDT [place] AN PROCEDURE PLACEHOLDER Routine 09/20/2024 7:59 AM CDT [place] AN ELECTIVE ENDOTRACHEAL AIRWAY Routine 09/20/2024 7:59 [...] CDT ESRD (end stage renal disease) (HCC) HEMOGLOBIN A1C Timed 07/11/2024 9:14 PM RN REHABILITATION LIPID PANEL Routine 05/13/2024 9:16 AM RN REHABILITATION Type 2 diabetes mellitus with stage 4 chronic kidney disease, with long-term current use of insulin (HCC) Hyperlipidemia associated with type 2 diabetes mellitus (HCC) ALBUMIN CREATININE RATIO, URINE Routine 05/13/2024 9:16 AM RN REHABILITATION Type 2 diabetes mellitus with stage 4 [...] LAB BLOOD ORDERABLES Final Resul t [facility] Department of Laboratories [place], [place] [id number] * Differential, auto (10/16/2024 10:22 AM CDT) Neutrophil abs 5.36 1.50 - 6.50 K/cumm Comment:Testing performed by : [facility], [address] [place] [id number] Imm gran abs 0.08 0.00 - 0.10 K/cumm [facility] Lymphocyte abs 1.50 0.80 - 3.30 K/cumm [facility] Monocyte abs 0.64 0.20 - 0.80 K/cumm [facility] Eosinophil abs 0.37 0.00 - 0.50 K/cumm [facility] Basophil abs 0.06 0.00 - 0.10 K/cumm [facility] Neutrophil pct 67.0 % [facility] Comment: Interpretive Data Percent cell count reference ranges are not reported, since discordance with absolute values may lead to misinterpretation of CBC data. Current Interpretive Data was last revised on 2017. Imm gran pct 1.0 % [facility] Comment: Interpretive Data Percent cell count reference ranges are not reported, since discordance with absolute values may lead to misinterpretation of CBC data. Current Interpretive Data was last revised on 2017. Lymphocyte pct 18.7 % [facility] Comment: Interpretive Data Percent cell count reference ranges are not reported, since discordance with absolute values may lead to misinterpretation of CBC data. Current Interpretive Data was last revised on 2017. Monocyte pct 8.0 % [facility] Comment: Interpretive Data Percent cell count reference ranges are not reported, since discordance with absolute values may lead to misinterpretation of CBC data. Current Interpretive Data was last revised on 2017. Eosinophil pct 4.6 % [facility] Comment: Interpretive Data Percent cell count reference ranges are not reported, since discordance with absolute values may lead to misinterpretation of CBC data. Current Interpretive Data was last revised on 2017. Basophil pct 0.7 % [facility] Comment: Interpretive Data Percent cell count reference ranges are not reported, since discordance with absolute values may lead to misinterpretation of CBC data. Current Interpretive Data was last revised on 2017. Blood 10/16/2024 10:2 2 AM CDT 10/16/2024 10:22 AM CDT us Marcella Taylor MD LAB BLOOD ORDERABLES Final Resul t [facility] [place] [address] * (ABNORMAL) CBC with auto differential (10/16/2024 10:22 AM CDT) WBC 8.01 3.80 - 9.90 K/cumm Comment:Testing performed by : [address] [address] Hgb 11.2(L) 13.0 - 17.5 g/dL [facility] Comment:Testing performed by : [address] [address] Hct 34.4(L) 38.9 - 50.3 % [facility] Comment:Testing performed by : [address] [address] Plt 165 150 - 400 K/cumm [facility] Comment:Testing performed by : [address] [address] MPV 10.7 9.1 - 12.3 fL [facility] RBC 3.94(L) 4.30 - 5.80 M/cumm [facility] MCV 87.3 81.3 - 96.4 fL [facility] MCH 28.4 27.1 - 33.3 pg [facility] MCHC 32.6 32.3 - 35.7 g/dL [facility] RDW CV 14.6 11.1 - 14.9 % [facility] RDW SD 46.6 35.7 - 48.1 fL [facility] NRBC abs 0.00 0.00 - 0.01 K/cumm [facility] ANC Prelim 5.36 1.50 - 6.50 K/cumm [facility] Comment: Interpretive Data The rapid ANC is a preliminary automated count and may vary from the final ANC (Neut Abs) reported in the WBC differential that follows. Current interpretive data was last revised 2024. Blood 10/16/2024 10:2 2 AM CDT 10/16/2024 10:22 AM CDT Marcella Taylor MD LAB BLOOD ORDERABLES Final Resul t Performing Organization Address City/[facility] Co de Phone Number [facility] [place] [address] * Lactate dehydrogenase (LD) (10/16/2024 10:22 AM CDT) Lactate dehydrogenase (LDH) 245 100 - 250 Units/L Comment:Testing performed by : [address] [address] Blood 10/16/2024 10:2 2 AM CDT 10/16/2024 10:22 AM CDT Marcella Taylor MD LAB BLOOD ORDERABLES Final Resul t Performing Organization Address [facility] de Phone Number [facility] [place] [address] * (ABNORMAL) Comprehensive metabolic panel (10/16/2024 10:22 AM CDT) Pathologist [facility] Sodium 138 135 - 145 mmol/L Comment:Testing performed by : [address] [address] Potassium, pl 4.6 3.3 - 4.9 mmol/L [facility] Chloride 104 97 - 110 mmol/L [facility] CO2 26 22 - 32 mmol/L [facility] Anion gap 8 2 - 15 mmol/L [facility] BUN 41(H) 6 - 25 mg/dL [facility] Creatinine 5.47(H) 0.80 - 1.30 mg/dL [facility] Glucose 230(H) 70 - 199 mg/dL [facility] Comment: Interpretive Data Fasting glucose [...] 2022. Calcium 8.4(L) 8.5 - 10.3 mg/dL [facility] Bilirubin, total 0.8 0.1 - 1.2 mg/dL [facility] Protein, pl 6.5 6.5 - 8.5 g/dL [facility] Albumin 3.7 3.5 - 5.0 g/dL [facility] Alk phos 84 40 - 130 Units/L [facility] ALT 12 7 - 55 Units/L [facility] AST 19 10 - 50 Units/L [facility] Blood 10/16/2024 10:2 2 AM CDT 10/16/2024 10:22 AM CDT Marcella Taylor MD LAB BLOOD ORDERABLES Final Resul t Performing Organization Address City/[facility]/ZIP Co de Phone Number [facility] [place] [address] * Vitamin B12 (10/16/2024 10:20 AM CDT) Vitamin B12 795 230 - 1,250 pg/mL Blood 10/16/2024 10:2 0 AM CDT 10/16/2024 1:49 PM CDT Marcella Taylor MD LAB BLOOD ORDERABLES Final Resul t Performing Organization Address City/[facility]/ZIP Co de Phone Number [facility] [place] [address] * PET/CT FDG Skull to Thigh (10/16/2024 [...] FDG-PET/CT IMAGING DATE OF STUDY: 10/16/2024 SCANNER: [facility] RADIOPHARMACEUTICAL: 16.31 mCi F-18 Fluorodeoxyglucose (FDG) [...] obtained. The study was interpreted on the Freever workstation. The mean liver SUV (reported for bottle house quality control technician purposes) is 2.4. The total scanned area [...] FDG-PET/CT IMAGING DATE OF STUDY: 10/16/2024 SCANNER: [facility] RADIOPHARMACEUTICAL: 16.31 mCi F-18 Fluorodeoxyglucose (FDG) [...] obtained. The study was interpreted on the Freever workstation. The mean liver SUV (reported for bottle house quality control technician purposes) is 2.4. The total scanned area [...] Electronically signed by: Juan Pablo Graham M.D. us Marcella Taylor MD IMG PET PROCEDURES Final Result * US Hemodialysis Access (10/11/2024 11:22 AM CDT) Anatomical Region Laterality Modality Vascular N/A Ultrasound 10/11/2024 10:4 9 AM CDT Narrative 10/11/2024 1:44 PM CDT [facility] - Department of Vascular Surgery, Vascular Laboratory [address] [place] [address] Dialysis Access Fistula/Graft Duplex Report Patient Name: JOSÉ LUIS GAMBLE : 1945 (79y ) Gender: M Study Date: 10/11/2024 10:49:25 AM Installment Loan Collector: GONZALO Location: [facility] Order Provider: GODFREY VILLARREAL Quality: Adequate [...] Arm Diameter 0.46 cm Rt Deep Vein [place] 58.40 cm/s Rt Outflow Distal Arm Depth 0.27 cm Rt Axillary Vein PSV 58.20 cm/s Rt Outflow Mid Arm Diameter 0.38 cm Rt Subclavian Vein 26.60 cm/s Rt Outflow Mid Arm Depth 0.56 cm Rt Outflow Vein (Graft) Volume Flow Average 310 cc/min Rt Outflow Proximal Arm Diameter 0.43 cm Rt Outflow Proximal Arm Depth 0.71 cm Rt Deep Vein [place] Diameter 0.43 cm Rt Deep Vein [place] Depth 2.10 cm Rt Inflow Artery Diameter 0.53 cm Diameter/Depth Value Units Velocities Value Units FINDINGS: Performing Installment Loan Collector: Jayda Dunn RVT. [place] Arterial Inflow Normal: No evidence of arterial [...] above. Electronically Signed By: Josias Cox MD [facility] [phone] 10/11/2024 1:30:12 PM CDT Procedure Note Josias Cox MD - 10/11/2024 [facility] - Department of Vascular Surgery,Vascular Laboratory [address] [place] [address] Dialysis Access Fistula/Graft Duplex Report Patient Name: JOSÉ LUIS GAMBLE : 1945 (79y ) Gender: M Study Date: 10/11/2024 10:49:25 AM Installment Loan Collector: GNOZALO Location: [facility] Order Provider: GODFREY VILLARREAL Quality: Adequate [...] Arm Diameter 0.46 cm Rt Deep Vein [place] 58.40cm/s Rt Outflow Distal Arm Depth 0.27 cm Rt Axillary Vein PSV 58.20 cm/s Rt Outflow Mid Arm Diameter 0.38 cm Rt Subclavian Vein 26.60 cm/s Rt Outflow Mid Arm Depth 0.56 cm Rt Outflow Vein (Graft) Volume FlowAverage 310 cc/min Rt Outflow Proximal Arm Diameter 0.43 cm Rt Outflow Proximal Arm Depth 0.71 cm Rt Deep Vein [place] Diameter 0.43 cm Rt Deep Vein [place] Depth 2.10 cm Rt Inflow Artery Diameter 0.53 cm Diameter/Depth Value Units Velocities Value Units FINDINGS: Performing Installment Loan Collector: Jayda Dunn RVT. [place] Arterial Inflow Normal: No evidence of arterial [...] above. Electronically Signed By: Josias Cox MD [facility] [phone] 10/11/2024 1:30:12 PM CDT Godfrey Villarreal MD [facility] [place] PROCEDURES Final R esult * POCT glucose (09/20/2024 9:25 AM CDT) Glucose, POC 145 70 - 199 mg/dL Blood 09/20/2024 9:25 AM CDT 09/20/2024 9:25 AM CDT us Godfrey Villarreal MD LAB POCT ORDERABLES - DEV ICE Final Result [facility] [place] [address] * POCT glucose (09/20/2024 9:00 AM CDT) Glucose, POC 133 70 - 199 mg/dL Blood 09/20/2024 9:00 AM CDT 09/20/2024 9:00 AM CDT us Godfrey Villarreal MD LAB POCT ORDERABLES - DEV ICE Final Result Performing Organization Address [facility] Co de Phone Number [facility] [place] [address] * [place] AN ELECTIVE ENDOTRACHEAL AIRWAY, [place] AN PROCEDURE PLACEHOLDER (09/20/2024 7:59 AM CDT) Narrative Caridad Hernandez CRNA - 09/20/2024 7:59 AM CDT Caridad Hernandez CRNA 09/20/2024 8:00 AM Airway Patient location: OR Urgency: elective Date/time: 09/20/2024 7:36 AM Indications for airway management: anesthesia Difficult airway: no Staff: Supervising provider: Joshua Rodgers MD Placed by: CAGE UNLOADER: Caridad Hernandez CRNA Emergent airway documentation: Risks [...] POC 3.2(L) 3.3 - 4.9 mmol/L [facility] Comment: Interpretive Data Not all point of care methods assess for hemolysis. Confirm with instrument and retest K+ if not consistent with clinical signs and symptoms. Current Interpretive Data was last revised on 2023. Glucose, POC 165 70 - 199 mg/dL [facility] Hct, POC 33.0(L) 41.4 - 51.6 % [facility] Total Hb, POC 11.0(L) 13.8 - 17.2 g/dL [facility] Blood 09/20/2024 7:05 AM CDT 09/20/2024 7:05 AM CDT Godfrey Villarreal MD LAB POCT ORDERABLES - DEV ICE Final Result [facility] [place] [address] * (ABNORMAL) eGFR (08/14/2024 11:18 AM CDT) [...] LAB BLOOD ORDERABLES Final Resul t [facility] [place] [address] * (ABNORMAL) Differential, auto (08/14/2024 11:18 AM CDT) Neutrophil abs 7.7(H) 1.5 - 6.5 K/cumm Comment:Testing performed by : [facility], [address] [place] [id number] Imm gran abs 0.1 0.0 - 0.1 K/cumm [facility] Lymphocyte abs 2.0 0.8 - 3.3 K/cumm [facility] Monocyte abs 0.8 0.2 - 0.8 K/cumm [facility] Eosinophil abs 0.4 0.0 - 0.5 K/cumm [facility] Basophil abs 0.1 0.0 - 0.1 K/cumm [facility] Neutrophil pct 69.7 % [facility] Comment: Interpretive Data Percent cell count reference ranges are not reported, since discordance with absolute values may lead to misinterpretation of CBC data. Current Interpretive Data was last revised on 2017. Imm gran pct 0.5 % [facility] Comment: Interpretive Data Percent cell count reference ranges are not reported, since discordance with absolute values may lead to misinterpretation of CBC data. Current Interpretive Data was last revised on 2017. Lymphocyte pct 17.9 % [facility] Comment: Interpretive Data Percent cell count reference ranges are not reported, since discordance with absolute values may lead to misinterpretation of CBC data. Current Interpretive Data was last revised on 2017. Monocyte pct 7.6 % [facility] Comment: Interpretive Data Percent cell count reference ranges are not reported, since discordance with absolute values may lead to misinterpretation of CBC data. Current Interpretive Data was last revised on 2017. Eosinophil pct 3.6 % [facility] Comment: Interpretive Data Percent cell count reference ranges are not reported, since discordance with absolute values may lead to misinterpretation of CBC data. Current Interpretive Data was last revised on 2017. Basophil pct 0.7 % [facility] Comment: Interpretive Data Percent cell count reference ranges are not reported, since discordance with absolute values may lead to misinterpretation of CBC data. Current Interpretive Data was last revised on 2017. Blood 08/14/2024 11:1 8 AM CDT 08/14/2024 11:18 AM CDT us Marcella Taylor MD LAB BLOOD ORDERABLES Final Resul t [facility] [place] [address] * (ABNORMAL) CBC with auto differential (08/14/2024 11:18 AM CDT) WBC 11.0(H) 3.8 - 9.9 K/cumm Comment:Testing performed by : [address] [address] Hgb 10.3(L) 13.0 - 17.5 g/dL [facility] Comment:Testing performed by : [address] [address] Hct 32.1(L) 38.9 - 50.3 % [facility] Comment:Testing performed by : [address] [address] Plt 187 150 - 400 K/cumm [facility] Comment:Testing performed by : [address] [address] MPV 9.6 9.1 - 12.3 fL [facility] RBC 3.88(L) 4.30 - 5.80 M/cumm [facility] MCV 82.7 81.3 - 96.4 fL [facility] MCH 26.5(L) 27.1 - 33.3 pg [facility] MCHC 32.1(L) 32.3 - 35.7 g/dL [facility] RDW CV 17.1(H) 11.1 - 14.9 % [facility] RDW SD 51.6(H) 35.7 - 48.1 fL [facility] NRBC abs 0.00 0.00 - 0.01 K/cumm [facility] Blood 08/14/2024 11:1 8 AM CDT 08/14/2024 11:18 AM CDT Marcella Taylor MD LAB BLOOD ORDERABLES Final Resul t Performing Organization Address [facility] de Phone Number [facility] Department [place] [address] * (ABNORMAL) Lactate dehydrogenase (LD) (08/14/2024 11:18 AM CDT) [facility] Lactate dehydrogenase (LDH) 343(H) 100 - 250 Units/L Comment:Testing performed by : [address] [address] Blood 08/14/2024 11:1 8 AM CDT 08/14/2024 11:18 AM CDT Marcella Taylor MD LAB BLOOD ORDERABLES Final Resul t Performing Organization Address City/[facility] de Phone Number [facility] [place] [address] * (ABNORMAL) Comprehensive metabolic panel (08/14/2024 11:18 AM CDT) [facility] Sodium 142 135 - 145 mmol/L Comment:Testing performed by : [address] [address] Potassium, pl 4.7 3.3 - 4.9 mmol/L [facility] Chloride 107 97 - 110 mmol/L [facility] CO2 27 22 - 32 mmol/L [facility] Anion gap 8 2 - 15 mmol/L [facility] BUN 41(H) 6 - 25 mg/dL [facility] Creatinine 5.63(H) 0.80 - 1.30 mg/dL [facility] Glucose 170 70 - 199 mg/dL [facility] Comment: Interpretive Data Fasting glucose [...] Calcium 8.0(L) 8.5 - 10.3 mg/dL [facility] Bilirubin, total 0.5 0.1 - 1.2 mg/dL [facility] Protein, pl 6.5 6.5 - 8.5 g/dL [facility] Albumin 3.6 3.5 - 5.0 g/dL [facility] Alk phos 83 40 - 130 Units/L [facility] ALT 11 7 - 55 Units/L [facility] AST 22 10 - 50 Units/L [facility] Blood 08/14/2024 11:1 8 AM CDT 08/14/2024 11:18 AM CDT us Marcella Taylor MD LAB BLOOD ORDERABLES Final Resul t [facility] [place] [address] * US Vein Mapping Fistula Access, Bilateral (08/12/2024 9:16 AM CDT) Anatomical Region Laterality Modality Vascular Bilateral Ultrasound 08/12/2024 7:00 AM CDT Narrative 08/12/2024 12:47 PM CDT [employer] - Department of Vascular Surgery, Vascular Laboratory [address] [place] [address] Upper Extremity Vein Mapping Report Patient Name: JOSÉ LUIS GAMBLE : 1945 (78y 10m) Study Date: 08/12/2024 7:00:58 AM Gender: M Installment Loan Collector: GONZALO Location: [facility] Provider: GODFREY VILLARREAL Quality: Adequate Order [...] Value Units Left Value Units FINDINGS: Performing Installment Loan Collector: Jayda Dunn RVT. Bilateral: Venous Doppler signals [...] above. Electronically Signed By: Josias Cox MD [facility] [phone] 08/12/2024 12:46:53 PM CDT Procedure Note Josias Cox MD - 08/12/2024 [facility] - Department of Vascular Surgery,Vascular Laboratory [address] [place] [address] Upper Extremity Vein Mapping Report Patient Name: JOSÉ LUIS GAMBLE : 1945 (78y 10m) Study Date: 08/12/2024 7:00:58 AM Gender: M Installment Loan Collector: GONZALO Location: [facility] Provider: GODFREY VILLARREAL Quality: Adequate Order [...] Value Units Left Value Units FINDINGS: Performing Installment Loan Collector: Jayda Dunn RVT. Bilateral: Venous Doppler signals [...] above. Electronically Signed By: Josias Cox MD [facility] [phone] 08/12/2024 12:46:53 PM CDT Godfrey Villarreal MD [facility] [place] PROCEDURES Final R esult * (ABNORMAL) Hemoglobin A1c (07/11/2024 9:14 PM RN REHABILITATION) Hgb A1C 6.3(H) 4.0 - 5.6 % Estimated Average Glucose 134 mg/dL [facility] Comment: The ADA recommends reporting an estimated Average Glucose (eAG) with all Hemoglobin A1c results using the equation derived from a study of 507 normal and diabetic adults. Minority populations were underrepresented and children were not included. (Diabetes Care 2020; 43(S1): S66-S76). The eAG is not equivalent to a fasting glucose. Blood 07/11/2024 9:14 PM RN REHABILITATION 07/11/2024 9:39 PM RN REHABILITATION Narrative [facility] - 07/12/2024 8:23 AM RN REHABILITATION Reflex us Rex Reid MD LAB BLOOD ORDERABLES Final Resul t Performing Organization Address [facility] Co de Phone Number [facility] [place] [address] * (ABNORMAL) Albumin Creatinine Ratio, Urine (05/13/2024 9:16 AM RN REHABILITATION) Albumin Ur 3,688.8 mg/L Comment: Interpretive Data No reference range established. Current interpretive data was last revised 2018. Creatinine Ur 59.2 mg/dL [facility] Comment: Interpretive Data No reference range established. Current interpretive data was last revised 2018. Albumin Creatinine Ratio, Ur 6,231(H) 1 - 29 mg/g [facility] Urine 05/13/2024 9:16 AM RN REHABILITATION 05/13/2024 2:55 PM RN REHABILITATION us Matt Kendrick MD LAB URINE ORDERABLE S Final Result Performing Organization Address [facility] Co de Phone Number [facility] [address] [place] [address] * (ABNORMAL) Lipid panel (05/13/2024 9:16 AM RN REHABILITATION) Cholesterol 128 30 - 199 mg/dL Comment: [...] NCEP Expert Panel. Circulation 2004;110:227 3. Ovidio Khoury al. JOVI Cardiol. 2020 October 03;5(5):540-548. doi: [...] 3 [facility] Blood 05/13/2024 9:16 AM RN REHABILITATION 05/13/2024 2:55 PM RN REHABILITATION us Matt Kendrick MD LAB BLOOD ORDERABLE S Final Result [facility] [address] [place] [address] * CT abdomen pelvis without contrast (12/14/2023 [...] Date Diagnosed Date Autogenerated Problem 10/29/[address] [place] [id number] MEDICARE LOCAL [address] MCR SUPPLEMENT MEDICARE LOCAL [address] MCR SUPPLEMENT MEDICARE COMMERCIAL GENERIC Advance Directives For more information, please contact: [phone] * Full Code (Latest Code Status on [...] 1:19 PM 07/30/2020 4:54 AM Care Teams Sprinkler Fitter Apprentice Relationship Specialty [place] [address] [address] PCP - General Family Practice 04/26/22 Marcella Taylor MD [address] [place] [address] [address] [place] [address] Medical Oncologist/Excel Analyst Medical Oncology 08/08/20 Godfrey Villarreal MD [address] [facility] 8108-10-06 [place] [address] Surgeon Vascular Surgery 09/20/24
--- OUTSIDE RECORDS SUMMARY | 2024-11-10 10:29 | XMS_ITS | Continuity of Care Document ---
Author Organization [facility] Address [id number] [place] [address] [address] [place] [address] Phone Care Team Providers Care Shrimp Peeler Name Role Phone Bianca Moran Unavailable Advance Directives Directive Yes / No Effective Date File Name No Information Encounters Encounter Description Practice Location Reason(s) For Visit Diagnoses Date Provider Providers Copied on Encounter [facility], [address], [place], [place], [id number], [place] tel:[phone] [facility] No Information Jul-0 5[address]. [address] , [address], [place], [address], [place]. tel:[phone] Family History Family Member Type Diagnosis Age At Onset No Information Payers Payer name Insurance type Covered green party ID Authoriza tion(s) [employer] SOI CI [id number] Social History Type Description Quantity Date Captured [...]
--- OUTSIDE RECORDS SUMMARY | 2024-11-10 10:29 | XMS_ITS | Encounter Summary ---
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 Gender Identity Not on file Sexual Orientation Not on file documented as of this encounter Plan of Treatment Not on file documented as of this encounter Procedures Procedure [...] COVID: Suspected 07/09/2024 07/09/2024 07/09/2024 11:36 AM RIDDLER OPERATOR COVID: Suspected 07/09/2024 07/09/2024 07/09/2024 4:05 PM RIDDLER OPERATOR documented as of this encounter Care Teams Block Tester Relationship Specialty [place] [address] [address] PCP - General Family Practice 04/26/22 Marcella Taylor MD [address] [place] [address] [address] [place] [address] Medical Oncologist/Manager Primary Medical Oncology 08/08/20 Godfrey Villarreal MD [address] [facility] 8108-10-06 [place] [address] Surgeon Vascular Surgery 09/20/24 documented as of this encounter
--- OUTSIDE RECORDS SUMMARY | 2024-11-10 10:29 | XMS_ITS | Continuity of Care Document ---
Author Name [employer] Organization [employer] Care Team Providers Care Kitchen Steward Name Role Phone [employer] Unavailable Unavailable Problems Combined list of problems from Department of [facility] and [facility] facilities. It does not include entries that were removed or entered in error. Problem Status Onset Date Problem Type Date of Resolution Comments Source Diagnosis: ICD-10-CM H90.3 Sensorineural hearing loss, bilateral Active Diagnosis [facility] Immunizations Combined list of available immunizations from the Department of [facility] and [facility] facilities. Immunization Series Date Given Administered By Site Reaction Lot Number CVX Code Drug Can Reconditioner Status Comments Source COVID-19 (PFIZER), MRNA, LNP-S, PF, 30 MCG/0.3 ML DOSE 2 2020 208 complet ed PFR; [id number]; 1 [facility] COVID-19 (PFIZER), MRNA, LNP-S, PF, 30 MCG/0.3 ML DOSE 1 2020 208 complet ed PFR; [id number]; 1 [facility] Encounters Combined list of: 1) Encounters from Department of [facility] Affairs facilities going backup to the last 18 months, not all VA inpatient encounters are included; 2) Encounters from the Department of [facility] facilities going backup to 280 months. Location Location Details Encounter Type Encounter Number Reason For Visit Attending Provider ADM Date DC Date Status Disposition Source [facility] HEARING AID REPAIR/MOD IFYING [id number] Diagnos is: ICD-10- CM H90.3 Sensori neural hearing loss, MICAELA Saba 12/03 [facility] Outpatient Encounter [id number] 06/20 [facility]
--- OUTSIDE RECORDS SUMMARY | 2024-11-10 10:29 | XMS_ITS | Encounter Summary ---
Author Organization [facility] Address [address] [place] [address] Phone Care Team Providers Care Grounds Maintenance Manager Name Role Phone Marcella Taylor MD Unavailable Anselmo Sampson MD Primary Care Provider [phone] Godfrey Villarreal MD Unavailable [phone] Encounter Details Date Type Department Care Team [...] file Legal Sex Male 6:14 AM SENIOR NET APPLICATION DEVELOPER Gender Identity Not on file Sexual Orientation [...] Suspected 07/09/2024 07/09/2024 07/09/2024 11:36 AM SENIOR NET APPLICATION DEVELOPER COVID: Suspected 07/09/2024 07/09/2024 07/09/2024 4:05 PM SENIOR NET APPLICATION DEVELOPER documented as of this encounter Care Teams Grounds Maintenance Manager Relationship Specialty [place] [address] [address] PCP - General Family Practice 04/26/22 Marcella Taylor MD [address] [place] [address] [address] [place] [address] Medical Oncologist/Computer Science Instructor Medical Oncology 08/08/20 Godfrey Villarreal MD [address] [facility] 8108-10-06 [place] [address] Surgeon Vascular Surgery 09/20/24 documented as of this encounter
--- OUTSIDE RECORDS SUMMARY | 2024-11-10 10:29 | XMS_ITS | Encounter Summary ---
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 FRUIT SORTER Gender Identity Not on file Sexual Orientation [...] COVID: Suspected 07/09/2024 07/09/2024 07/09/2024 11:36 AM FRUIT SORTER COVID: Suspected 07/09/2024 07/09/2024 07/09/2024 4:05 PM FRUIT SORTER documented as of this encounter Care Teams Combine Inspector Relationship Specialty Start [place] [address] [address] PCP - General Family Practice 04/26/22 Marcella Taylor MD [address] [facility] [address] [place] [address] Medical Oncologist/Surgical Endoscopist Medical Oncology 08/08/20 Godfrey Villarreal MD [address] [facility] 8108-10-06 [place] [address] Surgeon Vascular Surgery 09/20/24 documented as of this encounter
--- OUTSIDE RECORDS SUMMARY | 2024-11-10 10:29 | XMS_ITS | Clinical Summary ---
Author Organization [facility] Address [address] [place] [address] Care Team Providers Care Data Capture Specialist Name Role Phone Marcella Taylor MD Unavailable Anselmo Sampson MD Primary Care Provider [phone] Godfrey Villarreal MD Unavailable Allergies No known [...] (two) times a day with meals Active wfyaiwl-rrqebxsfp-w inc 333-133-5 mg tabletIndications:V itamin Deficiency Prevention [...] coma, with long-term current use of insulin ([facility]) Check blood sugar 3 times daily 200 [...] coma, with long-term current use of insulin ([facility]) Inject 0.06 mL (6 Units total) under [...] 1 tablet (4 mg total) by mouth director operating before breakfast 2023 Active cyanocobalamin (Vitamin B-12) [...] times a day 2024 Active blood-glucose sensor ([employer] G7 Sensor) deviceIndications:t ype 2 diabetes mellitus [...] 07/11/2024 Assessment & Plan (07/14/2024 9:38 AM JOB DEVELOPMENT SPECIALIST): Patient has had progression of CKD to now ESRD needing dialysis initiation given c/f uremia symptoms. Directly admitted per renal. Underwent tunneled dialysis catheter by IR on 07/12 and received HD on 07/12 and 07/13 -Hemodialysis as per Nephrology -Continue home bicarb URI (upper respiratory infection) 07/11/2024 Assessment & Plan (07/12/2024 12:59 PM JOB DEVELOPMENT SPECIALIST): Suspected viral. COVID/flu/RSV neg 07/09. CXR neg 07/10. Was prescribed azithromycin on 07/09 which he took for 3 days. Will not continued further -Supportive care Hypomagnesemia 01/02/2024 CKD (chronic kidney disease) stage 4, GFR 15-29 ml/min 04/16/2023 Assessment & Plan (07/25/2023 10:06 AM JOB DEVELOPMENT SPECIALIST): Chronic problem. Managed by Dr Flores. Has f/u appt at end of the month. Assessment & Plan (04/16/2023 8:48 PM JOB DEVELOPMENT SPECIALIST): Chronic, stable Following with Business Strategy Manager Acute kidney injury 02/24/2023 (HFpEF) heart failure with preserved ejection fr action 02/24/2023 Assessment & Plan (02/24/2023 3:38 PM CDT): TTE with EF 77% and at least grade 1 diastolic dysfunction (indeterminate on last TTE). Not in exacerbation -Cont home lasix 40mg -strict I&Os, daily weights -F/u with OSH Attendance Clerk Dr. Payton CAD (coronary artery disease) 02/24/2023 Assessment & Plan (02/24/2023 3:38 PM CDT): S/p prior 5v CABG in 2012 -Cont statin and coreg -Intolerant of PATI-I/ARB due to worsening renal function -ASA held due to procedure -F/u with Cardiology outpatient Hyperlipidemia associated with type 2 diabetes aimee ulloa 02/24/2023 Assessment & Plan (07/11/2024 9:32 PM JOB DEVELOPMENT SPECIALIST): -Continue home welchol -Atorvastatin for home pitavastatin (non-formulary) Assessment & Plan (05/13/2024 9:10 AM JOB DEVELOPMENT SPECIALIST): Continue statin therapy Assessment & Plan (11/16/2023 11:18 AM CDT): Chronic problem. Currently taking Pitavatatin 4mg daily. Last lipid panel: 02/24/23 LDL=76, LC=896. Assessment & Plan (07/25/2023 10:22 AM JOB DEVELOPMENT SPECIALIST): Chronic problem. Currently taking Pitavatatin 4mg daily. Last lipid panel: 02/24/23 LDL=76, YP=830. Assessment & Plan (04/16/2023 8:46 PM JOB DEVELOPMENT SPECIALIST): On Pitavastatin therapy Tolerating well Assessment & Plan (02/24/2023 3:39 PM CDT): Cont statin and colesevelam Type 2 diabetes mellitus wit h stage 4 chronic kidney disease, with long-term current use of insulin 02/24/2023 Assessment & Plan (07/11/2024 9:31 PM JOB DEVELOPMENT SPECIALIST): F/b endo. Home regimen: tresiba 5U QHS, aspart 6-8U TID with meals Pt/ report issues with hypoglycemia lately at home. -Will start with SSI for now; titrate/add scheduled insulin pending glucose trends Assessment & Plan (05/13/2024 9:10 AM JOB DEVELOPMENT SPECIALIST): Chronic, uncontrolled, worsening Hemoglobin A1c 6.8 A1c [...] soon Daily foot care Advise to call [employer] and get the dexcom G 6 sensor [...] return to normal. If you're eating a delivery table feeder lunch--drop the Fiasp to 6 units. Current medications: Tresiba 6 units at bedtime Fiasp 4 units with breakfast & dinner, 8 units with lunch (6 units if delivery table feeder lunch) If blood sugar is between 151-200, add 1 units. If blood sugar is between 201-250, add 2 units. If blood sugar is between 251-300, add 3 units. If blood sugar is between 301-350, add 4 units. UTD on DM eye exam (06/15/23 at [facility]). UTD on labs. Discussed with José Luis [...] infection. Assessment & Plan (07/25/2023 10:02 AM JOB DEVELOPMENT SPECIALIST): Chronic problem. A1c stable at 6.1% but having overnight lows & occasionally lows after LN. Call your supply company to switch from Dexcom G6 to Dexcom G7. Lower tresiba to 6 units nightly. If you notice that your over night readings are too high--start to increase by 1 unit weekly until they return to normal. If you're eating a delivery table feeder lunch--drop the Fiasp to 6 units. Current medications: Tresiba 6 units at bedtime Fiasp 4 units with breakfast & dinner, 8 units with lunch (6 units if delivery table feeder lunch) If blood sugar is between 151-200, add 1 units. If blood sugar is between 201-250, add 2 units. If blood sugar is between 251-300, add 3 units. If blood sugar is between 301-350, add 4 units. DM eye exam 06/2023 at [facility]. Letter sent to get copy of report. [...] infection. Assessment & Plan (04/16/2023 8:47 PM JOB DEVELOPMENT SPECIALIST): Chronic , improving overall hyperglycemia but now [...] TID +SSI; adjust PRN -F/u with OSH power engineer Proteinuria 02/24/2023 Assessment & Plan (02/25/2023 [...] 11/04/2021 Assessment & Plan (07/12/2024 12:57 PM JOB DEVELOPMENT SPECIALIST): Getting aranesp outpatient -Trend CBC -Transfuse PRN [...] 11/04/2021 Assessment & Plan (07/11/2024 9:30 PM JOB DEVELOPMENT SPECIALIST): -Continue home amlodipine, hydralazine, coreg Assessment & Plan (05/13/2024 9:11 AM JOB DEVELOPMENT SPECIALIST): Chronic, fairly controlled for pt age Continue amlodipine Managed by nephrology Assessment & Plan (11/16/2023 11:18 AM CDT): Chronic problem. Controlled on current Carvedilol 25mg bid, amlodipine 10mg daily, lasix 20mg daily. not taking hydralazine currently Assessment & Plan (07/25/2023 10:05 AM JOB DEVELOPMENT SPECIALIST): Chronic problem. Controlled on current Carvedilol 25mg bid, amlodipine 10mg daily, lasix 20mg daily. 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 Overview (08/14/2020): Added automatically from request for surgery [id number] Assessment & Plan (07/14/2024 9:38 AM JOB DEVELOPMENT SPECIALIST): Pt of Dr Taylor -Holding home ripretinib [...] Type Department Care Team Description 11/08/2024 Telephone [facility] Surgery [address] [facility] Advanced Medicine 8th [place] [address] [place] [address] Godfrey Villarreal MD 11/01/2024 Documentation [facility] Surgery [address] [facility] Floor 1 [place] [address] Godfrey Villarreal MD 10/31/2024 Telephone [facility] Oncology [address] [place] [address] Valerie Aguirre CMA 10/30/2024 Telephone [facility] Surgery [address] [facility] Floor 1 [place] [address] Godfrey Villarreal MD 10/18/2024 11:59 PM CDT Anesthesia Event [facility] Operating Room [address] [place] [address] Maryjo Galicia NP 10/16/2024 11:00 AM CDT Office Visit [facility] Oncology [address] [place] [address] [place], Ekaterina Ioana, LIFE SKILLS INSTRUCTOR Low vitamin B12 level (Primary Dx); GIST (gastrointestinal stroma tumor), malignant, colon (HCC); 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) 10/16/2024 10:30 AM CDT Lab [facility] [address] [place] [address] GIST (gastrointestinal stroma tumor), malignant, colon (HCC); 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); Low vitamin B12 level 10/16/2024 8:39 AM CDT - 10/16/2024 11:59 PM CDT Hospital Encounter [facility] Advanced Medicine Imaging [address] [place] [address] Discharge Disposition: Discharge to home or self care 10/16/2024 7:18 AM CDT - 10/16/2024 11:59 PM CDT Hospital Encounter [facility] Advanced Medicine Imaging [address] [place] [address] GIST (gastrointestinal stroma tumor), malignant, colon (HCC); 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) Discharge Disposition: Discharge to home or self care 10/16/2024 Results Follow-Up [facility] Oncology [address] [place] [phone] Jose Antonio Gamble Lactate dehydrogenase (LD), Comprehensive metabolic panel, CBC with auto differential, Additional followed-up results: 3 10/14/2024 10:30 AM CDT Office Visit [facility] Vascular Surgery [address] [place] [address] Medical Office Building [address] [place] [phone] Godfrey Villarreal MD ESRD (end stage renal disease) (HCC) (Primary Dx); Encounter for surgical aftercare following surgery on the circulatory system 10/11/2024 11:00 AM CDT Ancillary Procedure [facility]ascular Lab Vascular Surgery [address] [place] [address] [address] 3, [address] DEB LUND [id number] End stage renal disease (HCC) 10/09/2024 Orders Only [facility] Oncology [address] [place] [phone] Jose Antonio Gamble 10/09/2024 Telephone [facility] [address] [place] [address] [address] [place] [address] Matt Nicholson MD 09/20/2024 7:30 AM CDT - 09/20/2024 10:40 AM CDT Surgery [facility] Operating Room [address] [place] [address] Godfrey Villarreal MD CREATION 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 09/20/2024 7:24 AM CDT Anesthesia Event [facility] Operating Room [address] [place] [phone] Joshua Rodgers MD Gangloff, Kerry Marie, NP 09/20/2024 5:44 AM CDT - 09/20/2024 11:38 AM CDT Hospital Encounter [facility] Operating Room 1 [place] [phone] Godfrey Villarreal MD ESRD (end stage renal disease) on dialysis (HCC) (Primary Dx) Discharge Disposition: Discharge to home or self care 09/20/2024 Orders Only [facility] Vascular Surgery [address] [place] [address] Office Building [address] [place] [address] Godfrey Villarreal MD End stage renal disease (HCC) (Primary Dx) 09/19/2024 Telephone [facility] Vascular Surgery [address] [place] [address] Office Building [address] [place] [address] Godfrey Villarreal MD 08/27/2024 Telephone [facility] Surgery [address] [place] [address] Floor 1 [place] [phone] Godfrey Villarreal MD 08/26/2024 Telephone [facility] Surgery [address] [place] [address] Floor 1 [place] [address] Godfrey Villarreal MD 08/14/2024 12:00 PM CDT Office Visit [facility] Oncology [address] [place] [address] Marcella Taylor MD GIST (gastrointestinal stroma tumor), malignant, colon (HCC) (Primary Dx); 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) 08/14/2024 11:30 AM CDT Lab [address] [address] GIST (gastrointestinal stroma tumor), malignant, colon (HCC); 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) 08/12/2024 9:45 AM CDT Office Visit [facility] Vascular Surgery [address] [place] [address] Medical Office Building [address] [place] [phone] Godfrey Villarreal MD ESRD (end stage renal disease) (HCC) (Primary Dx) 08/12/2024 8:45 AM CDT Ancillary Procedure [facility] Vascular Lab Vascular Surgery [address] [place] [address] [address], [address] [place] [address] ESRD (end stage renal disease) (HCC) 08/12/2024 Orders Only [facility] Oncology [address] [place] [address] Jose Antonio Gamble 08/12/2024 Telephone [facility] Oncology [address] [place] [phone] Jose Antonio Gamble from Last 3 Months [...] insufficiency Dialysis Tue / Thur/ Sat in [place], [place] [facility] (HCC) Anemia Heart failure [...] on file Legal Sex Male 6:14 AM JOB DEVELOPMENT SPECIALIST Gender Identity Not on file Sexual [...] 10/18/2024 8:25 AM CDT Plan of Treatment Health Maintenance Due Date [...] Pulliam NP Medical Devices Implanted Type Area Advertising Clerk Device Identifier Shelf Expiration Date Model / Serial / Lot Stent- 8 Implanted:04/19 by [facility], Carol Esquivel MD (Quantity not on file) Stent Heart Description:1.5 or 3 Nazia N ormal Mode Scan 15 rest 5 [employer] Duraflow Embosafe 15.5fr 28cm Basic 2 Lumen Kit Catheter [id number] - [id number] Implanted:Qty: 1 on 07/12/2024 at [facility] [employer] 08/02/2026 [id number] 25 / / [id number] Procedures Procedure Name Priority Date/Time Associated Diagnosis [...] DEVICE Routine 09/20/2024 9 :00 AM CDT HI AN PROCEDURE PLACEHOLDER Routine 09/20/2024 7:59 AM CDT HI AN ELECTIVE ENDOTRACHEAL AIRWAY Routine 09/20/2024 7:59 [...] (HCC) HEMOGLOBIN A1C Timed 07/11/2024 9:14 PM JOB DEVELOPMENT SPECIALIST LIPID PANEL Routine 05/13/2024 9:16 AM JOB DEVELOPMENT SPECIALIST Type 2 diabetes mellitus with stage 4 chronic kidney disease, with long-term current use of insulin (HCC) Hyperlipidemia associated with type 2 diabetes mellitus (HCC) ALBUMIN CREATININE RATIO, URINE Routine 05/13/2024 9:16 AM JOB DEVELOPMENT SPECIALIST Type 2 diabetes mellitus with stage 4 [...] Resul t [facility] Department [place] [address] * Differential, auto (10/16/2024 10:22 AM CDT) Neutrophil abs 5.36 1.50 - 6.50 K/cumm Comment:Testing performed by : [facility], [address] [place] [address] Imm gran abs 0.08 0.00 - 0.10 K/cumm [facility] Lymphocyte abs 1.50 0.80 - 3.30 K/cumm [facility] Monocyte abs 0.64 0.20 - 0.80 K/cumm [facility] Eosinophil abs 0.37 0.00 - 0.50 K/cumm [facility] Basophil abs 0.06 0.00 - 0.10 K/cumm [facility] Neutrophil pct 67.0 % [facility] Comment: Interpretive [...] revised on 2017. Monocyte pct 8.0 % [facility] Comment: Interpretive Data Percent cell count reference ranges are not reported, since discordance with absolute values may lead to misinterpretation of CBC data. Current Interpretive Data was last revised on 2017. Eosinophil pct 4.6 % [facility] Comment: Interpretive Data Percent cell count reference ranges are not reported, since discordance with absolute values may lead to misinterpretation of CBC data. Current Interpretive Data was last revised on 2017. Basophil pct 0.7 % [facility] Comment: Interpretive Data Percent cell count reference ranges are not reported, since discordance with absolute values may lead to misinterpretation of CBC data. Current Interpretive Data was last revised on 2017. Blood 10/16/2024 10:2 2 AM CDT 10/16/2024 10:22 AM CDT us Marcella Taylor MD LAB BLOOD ORDERABLES Final Resul t [facility] Department [place] [address] * (ABNORMAL) CBC with auto differential (10/16/2024 10:22 AM CDT) WBC 8.01 3.80 - 9.90 K/cumm Comment:Testing performed by : [address] [address] Hgb 11.2(L) 13.0 - 17.5 g/dL [facility] Comment:Testing performed by : [address] [address] Hct 34.4(L) 38.9 - 50.3 % [facility] Comment:Testing performed by : [address] [address] Plt 165 150 - 400 K/cumm [facility] Comment:Testing performed by : [address] [address] MPV 10.7 9.1 - 12.3 fL [facility] [...] ORDERABLES Final Resul t Performing Organization Address [facility] de Phone Number [facility] [place] [address] * Lactate dehydrogenase (LD) (10/16/2024 10:22 AM CDT) Lactate dehydrogenase (LDH) 245 100 - 250 Units/L Comment:Testing performed by : [address] [address] Blood 10/16/2024 10:2 2 AM CDT 10/16/2024 10:22 AM CDT Marcella Taylor MD LAB BLOOD ORDERABLES Final Resul t Performing Organization Address [facility] de Phone Number [facility] [place] [address] * (ABNORMAL) Comprehensive metabolic panel (10/16/2024 10:22 AM CDT) Sodium 138 135 - 145 mmol/L Comment:Testing performed by : [address] [address] Potassium, pl 4.6 3.3 - 4.9 mmol/L [...] Calcium 8.4(L) 8.5 - 10.3 mg/dL [facility] Bilirubin, total 0.8 0.1 - 1.2 mg/dL [facility] Protein, pl 6.5 6.5 - 8.5 g/dL [facility] Albumin 3.7 3.5 - 5.0 g/dL [facility] Alk phos 84 40 - 130 Units/L [facility] ALT 12 7 - 55 Units/L [facility] AST 19 10 - 50 Units/L [facility] Blood 10/16/2024 10:2 2 AM CDT 10/16/2024 10:22 AM CDT Marcella Taylor MD LAB BLOOD ORDERABLES Final Resul t Performing Organization Address City/[facility]/ZIP Co de Phone Number [facility] Department [place] [address] * Vitamin B12 (10/16/2024 10:20 AM CDT) Vitamin B12 795 230 - 1,250 pg/mL Blood 10/16/2024 10:2 0 AM CDT 10/16/2024 1:49 PM CDT Marcella Taylor MD LAB BLOOD ORDERABLES Final [facility]ul t [facility] Department [place] [address] * PET/CT FDG Skull to Thigh (10/16/2024 [...] FDG-PET/CT IMAGING DATE OF STUDY: 10/16/2024 SCANNER: [facility] RADIOPHARMACEUTICAL: 16.31 mCi F-18 Fluorodeoxyglucose (FDG) [...] obtained. The study was interpreted on the [employer] workstation. The mean liver SUV (reported for assistant manager quality management purposes) is 2.4. The total scanned area [...] FDG-PET/CT IMAGING DATE OF STUDY: 10/16/2024 SCANNER: [facility] RADIOPHARMACEUTICAL: 16.31 mCi F-18 Fluorodeoxyglucose (FDG) [...] obtained. The study was interpreted on the [employer] workstation. The mean liver SUV (reported for assistant manager quality management purposes) is 2.4. The total scanned area [...] AM CDT Narrative 10/11/2024 1:44 PM CDT [facility] [employer] [facility] - Department of Vascular Surgery, Vascular Laboratory [address] [place] [address] Dialysis Access Fistula/Graft Duplex Report Patient Name: JOSÉ LUIS GAMBLE : 1945 (79y ) Gender: M Study Date: 10/11/2024 10:49:25 AM Material Scheduler: GONZALO Location: [facility] Order Provider: GODFREY VILLARREAL Quality: Adequate [...] Arm Diameter 0.46 cm Rt Deep Vein [place] 58.40 cm/s Rt Outflow Distal Arm Depth 0.27 cm Rt Axillary Vein PSV 58.20 cm/s Rt Outflow Mid Arm Diameter 0.38 cm Rt Subclavian Vein 26.60 cm/s Rt Outflow Mid Arm Depth 0.56 cm Rt Outflow Vein (Graft) Volume Flow Average 310 cc/min Rt Outflow Proximal Arm Diameter 0.43 cm Rt Outflow Proximal Arm Depth 0.71 cm Rt Deep Vein [place] Diameter 0.43 cm Rt Deep Vein [place] Depth 2.10 cm Rt Inflow Artery Diameter 0.53 cm Diameter/Depth Value Units Velocities Value Units FINDINGS: Performing Material Scheduler: Jayda Dunn RVT. [place] Dehe Arterial Inflow Normal: No evidence of arterial [...] above. Electronically Signed By: Josias Cox MD [facility] [phone] 10/11/2024 1:30:12 PM CDT Procedure Note Josias Cox MD - 10/11/2024 [employer] - Department of Vascular Surgery,Vascular Laboratory [address] [place] [address] Dialysis Access Fistula/Graft Duplex Report Patient Name: JOSÉ LUIS GAMBLE : 1945 (79y ) Gender: M Study Date: 10/11/2024 10:49:25 AM Material Scheduler: GONZALO Location: [facility] Order Provider: GODFREY VILLARREAL Quality: Adequate [...] Arm Diameter 0.46 cm Rt Deep Vein [place] 58.40cm/s Rt Outflow Distal Arm Depth 0.27 cm Rt Axillary Vein PSV 58.20 cm/s Rt Outflow Mid Arm Diameter 0.38 cm Rt Subclavian Vein 26.60 cm/s Rt Outflow Mid Arm Depth 0.56 cm Rt Outflow Vein (Graft) Volume FlowAverage 310 cc/min Rt Outflow Proximal Arm Diameter 0.43 cm Rt Outflow Proximal Arm Depth 0.71 cm Rt Deep Vein [place] Diameter 0.43 cm Rt Deep Vein [place] Depth 2.10 cm Rt Inflow Artery Diameter 0.53 cm Diameter/Depth Value Units Velocities Value Units FINDINGS: Performing Material Scheduler: Jayda Dunn RVT. C[place]il Dehe Arterial Inflow Normal: No evidence of arterial [...] above. Electronically Signed By: Josias Cox MD [facility] [phone] 10/11/2024 1:30:12 PM CDT us Godfrey Villarreal MD IM US PROCEDURES Final R esult * POCT glucose (09/20/2024 9:25 AM CDT) Glucose, POC 145 70 - 199 mg/dL Blood 09/20/2024 9:25 AM CDT 09/20/2024 9:25 AM CDT Godfrey Villarreal MD LAB POCT ORDERABLES - DEV ICE Final Result Performing Organization Address [facility] de Phone Number [facility] Department [place] [address] * POCT glucose (09/20/2024 9:00 AM CDT) Glucose, POC 133 70 - 199 mg/dL Blood 09/20/2024 9:00 AM CDT 09/20/2024 9:00 AM CDT Godfrey Villarreal MD LAB POCT ORDERABLES - DEV ICE Final Result Performing Organization Address [facility] de Phone Number [facility] Department [place] [address] * HI AN ELECTIVE ENDOTRACHEAL AIRWAY, HI AN PROCEDURE PLACEHOLDER (09/20/2024 7:59 AM CDT) Narrative Caridad Hernandez CRNA - 09/20/2024 7:59 AM CDT Caridad Hernandez CRNA 09/20/2024 8:00 AM Airway Patient location: OR Urgency: elective Date/time: 09/20/2024 7:36 AM Indications for airway management: anesthesia Difficult airway: no Staff: Supervising provider: Joshua Rodgers MD Placed by: L[employer] MUSIC TEACHER: Caridad Hernandez CRNA Emergent airway documentation: Risks [...] Final Result [facility] Department [place] [address] * (ABNORMAL) eGFR (08/14/2024 11:18 AM CDT) [...] Resul t [facility] Department [place] [address] * (ABNORMAL) Differential, auto (08/14/2024 11:18 AM CDT) Neutrophil abs 7.7(H) 1.5 - 6.5 K/cumm Comment:Testing performed by : [facility], [address] [place] [address] Imm gran abs 0.1 0.0 - 0.1 K/cumm [facility] Lymphocyte abs 2.0 0.8 - 3.3 K/cumm [facility] Monocyte abs 0.8 0.2 - 0.8 K/cumm [facility] Eosinophil abs 0.4 0.0 - 0.5 K/cumm [facility] Basophil abs 0.1 0.0 - 0.1 K/cumm [facility] Neutrophil pct 69.7 % [facility] [...] on 2017. Lymphocyte pct 17.9 % [facility] Comment: Interpretive Data Percent cell count reference ranges are not reported, since discordance with absolute values may lead to misinterpretation of CBC data. Current Interpretive Data was last revised on 2017. Monocyte pct 7.6 % [facility] Comment: Interpretive Data Percent cell count reference ranges are not reported, since discordance with absolute values may lead to misinterpretation of CBC data. Current Interpretive Data was last revised on 2017. Eosinophil pct 3.6 % [facility] Comment: Interpretive Data Percent cell count reference ranges are not reported, since discordance with absolute values may lead to misinterpretation of CBC data. Current Interpretive Data was last revised on 2017. Basophil pct 0.7 % [facility] Comment: Interpretive Data Percent cell count reference ranges are not reported, since discordance with absolute values may lead to misinterpretation of CBC data. Current Interpretive Data was last revised on 2017. Blood 08/14/2024 11:1 8 AM CDT 08/14/2024 11:18 AM CDT us Marcella Taylor MD LAB BLOOD ORDERABLES Final Resul t [facility] Department [place] [address] * (ABNORMAL) CBC with auto differential (08/14/2024 11:18 AM CDT) WBC 11.0(H) 3.8 - 9.9 K/cumm Comment:Testing performed by : [address] [address] Hgb 10.3(L) 13.0 - 17.5 g/dL [facility] Comment:Testing performed by : [address] [address] Hct 32.1(L) 38.9 - 50.3 % [facility] Comment:Testing performed by : [address] [address] Plt 187 150 - 400 K/cumm [facility] Comment:Testing performed by : [facility], [address] [place] [address] MPV 9.6 9.1 - 12.3 fL [facility] RBC 3.88(L) 4.30 - 5.80 M/cumm [facility] MCV 82.7 81.3 - 96.4 [...] ORDERABLES Final Resul t Performing Organization Address City/[facility]/ZIP Co de Phone Number [facility] Department [place] [address] * (ABNORMAL) Lactate dehydrogenase (LD) (08/14/2024 11:18 AM CDT) Lactate dehydrogenase (LDH) 343(H) 100 - 250 Units/L Comment:Testing performed by : [facility], [address] [place] [address] Blood 08/14/2024 11:1 8 AM CDT 08/14/2024 11:18 AM CDT Marcella Taylor MD LAB BLOOD ORDERABLES Final Resul t [facility] Department [place] [address] * (ABNORMAL) Comprehensive metabolic panel (08/14/2024 11:18 AM CDT) Sodium 142 135 - 145 mmol/L Comment:Testing performed by : [facility], [address] [place] [address] Potassium, pl 4.7 3.3 - 4.9 mmol/L [...] Resul t [facility] Department [place] [address] * US Vein Mapping Fistula Access, Bilateral (08/12/2024 9:16 AM CDT) Anatomical Region Laterality Modality Vascular Bilateral Ultrasound 08/12/2024 7:00 AM CDT Narrative 08/12/2024 12:47 PM CDT [facility] - Department of Vascular Surgery, Vascular Laboratory [address] [place] [address] Upper Extremity Vein Mapping Report Patient Name: JOSÉ LUIS GAMBLE : 1945 (78y 10m) Study Date: 08/12/2024 7:00:58 AM Gender: M Material Scheduler: GONZALO Location: [facility] Provider: GODFREY VILLARREAL Quality: Adequate Order Provider: [...] Value Units Left Value Units FINDINGS: Performing Material Scheduler: Jayda Dunn RVT. Bilateral: Venous Doppler signals [...] that is provided above. Electronically Signed By: Jsoias Cox MD [facility] [phone] 08/12/2024 12:46:53 PM CDT Procedure Note Josias Cox MD - 08/12/2024 [facility] - Department of Vascular Surgery,Vascular Laboratory [address] [place] [address] Upper Extremity Vein Mapping Report Patient Name: JOSÉ LUIS GAMBLE : 1945 (78y 10m) Study Date: 08/12/2024 7:00:58 AM Gender: M Material Scheduler: GONZALO Location: [facility] Ref Provider: GODFREY VILLARREAL Quality: Adequate Order Provider: [...] Value Units Left Value Units FINDINGS: Performing Material Scheduler: Jayda Dunn RVT. Bilateral: Venous Doppler signals [...] above. Electronically Signed By: Josias Cox MD [facility] [phone] 08/12/2024 12:46:53 PM CDT us Godfrey Villarreal MD IM US PROCEDURES Final R esult * (ABNORMAL) Hemoglobin A1c (07/11/2024 9:14 PM JOB DEVELOPMENT SPECIALIST) Hgb A1C 6.3(H) 4.0 - 5.6 % Estimated Average Glucose 134 mg/dL [facility] Comment: The ADA recommends reporting an estimated Average Glucose (eAG) with all Hemoglobin A1c results using the equation derived from a study of 507 normal and diabetic adults. Minority populations were underrepresented and children were not included. (Diabetes Care 2020; 43(S1): S66-S76). The eAG is not equivalent to a fasting glucose. Blood 07/11/2024 9:14 PM JOB DEVELOPMENT SPECIALIST 07/11/2024 9:39 PM JOB DEVELOPMENT SPECIALIST Narrative [facility] - 07/12/2024 8:23 AM JOB DEVELOPMENT SPECIALIST Reflex us Rex Reid MD LAB BLOOD ORDERABLES Final Resul t Performing Organization Address City/[facility]/ZIP Co de Phone Number [facility] Department [place] [address] * (ABNORMAL) Albumin Creatinine Ratio, Urine (05/13/2024 9:16 AM JOB DEVELOPMENT SPECIALIST) Albumin Ur 3,688.8 mg/L Comment: Interpretive Data No reference range established. Current interpretive data was last revised 2018. Creatinine Ur 59.2 mg/dL [facility] Comment: Interpretive Data No reference range established. Current interpretive data was last revised 2018. Albumin Creatinine Ratio, Ur 6,231(H) 1 - 29 mg/g [facility] Urine 05/13/2024 9:16 AM JOB DEVELOPMENT SPECIALIST 05/13/2024 2:55 PM JOB DEVELOPMENT SPECIALIST us Matt Kendrick MD LAB URINE ORDERABLE S Final Result [facility] [address] Department [place] [address] * (ABNORMAL) Lipid panel (05/13/2024 9:16 AM JOB DEVELOPMENT SPECIALIST) Cholesterol 128 30 - 199 mg/dL Comment: [...] mg/dL High: >160 mg/dL Calculated using the Nolan LDL-C estimating equation. This equation was implemented [...] 3 [facility] Blood 05/13/2024 9:16 AM JOB DEVELOPMENT SPECIALIST 05/13/2024 2:55 PM JOB DEVELOPMENT SPECIALIST us Matt Kendrick MD LAB BLOOD ORDERABLE S Final Result [facility] [address] Department [place] [address] * CT abdomen pelvis without contrast (12/14/2023 [...] Lenny Redd M.D., Ph.D Marcella Taylor MD [facility] PROCEDURES Final Result * DIABETES EYE EXAM (06/15/2023) 06/15/2023 us Historical Provider HEALTH MAINTENANCE Edited Result - Final from Last 3 Months or Most Recently Relevant to Health Maintenance Additional Health Concerns Active Problems Noted Date Diagnosed Date Autogenerated Problem 10/29/2024 Insurance MEDICARE [place] [id number] [facility] SUPPLEMENT MEDICARE [place] [id number] [facility] SUPPLEMENT MEDICARE COMMERCIAL GENERIC Advance Directives For more information, please contact: [phone] * Full Code (Latest Code Status on [...] 1:19 PM 07/30/2020 4:54 AM Care Teams Data Capture Specialist Relationship Specialty [place] [address] [address] PCP - General Family Practice 04/26/22 Marcella Taylor MD [address] [place] [address] [address] [place] [address] Medical Oncologist/Fiscal Technician Medical Oncology 08/08/20 Godfrey Villarreal MD [address] [facility] 8108-10-06 [place] [address] Surgeon Vascular Surgery 09/20/24
--- OUTSIDE RECORDS SUMMARY | 2024-11-10 10:30 | XMS_ITS | Encounter Summary ---
Author Organization [facility] Address [address] [place] [address] Phone Care Team Providers Care Pecan Mallow Dipper Name Role Phone Marcella Taylor MD Unavailable Anselmo Sampson MD Primary Care Provider [phone] Godfrey Villarreal MD Unavailable [phone] Encounter Details Date Type Department Care Team [...] on file Legal Sex Male 6:14 AM WARE SERVER Gender Identity Not on file Sexual Orientation [...] COVID: Suspected 07/09/2024 07/09/2024 07/09/2024 11:36 AM WARE SERVER COVID: Suspected 07/09/2024 07/09/2024 07/09/2024 4:05 PM WARE SERVER documented as of this encounter Care Teams Pecan Mallow Dipper Relationship Specialty [place] [address] [address] PCP - General Family Practice 04/26/22 Marcella Taylor MD [address] [place] [address] [place] [address] Medical Oncologist/Matrix Supervisor Medical Oncology 08/08/20 Godfrey Villarreal MD [address] [facility] 8108-10-06 [place] [address] Surgeon Vascular Surgery 09/20/24 documented as of this encounter
--- OUTSIDE RECORDS SUMMARY | 2024-11-10 10:30 | XMS_ITS | Clinical Summary ---
Author Organization [facility] Address [address], [facility] [address] [place] [address] Phone Care Team Providers Care Porter Marina Name Role Phone Gerard Mo Primary Care Provider [phone] Allergies No known active allergies Medications citalopram [...] mouth 3 times daily as needed. Active [place]-3 Fatty Acids (FISH OIL PO) Take by [...] on file Legal Sex Male 2:48 PM TISSUE INSERTER Gender Identity Not on file Sexual Orientation Not on file Last Filed Vital Signs Vital Sign Reading Time Taken Comments Blood Pressure 132/82 07/07/2016 2:43 PM TISSUE INSERTER Pulse 73 07/07/2016 2:43 PM TISSUE INSERTER Temperature 37 C (98.6 F) 07/07/2016 2:43 PM TISSUE INSERTER Respiratory Rate - - Oxygen Saturation 97% 07/07/2016 2:43 PM TISSUE INSERTER Inhaled Oxygen Concentration - - Weight 101.6 kg (224 lb) 07/07/2016 2:43 PM TISSUE INSERTER Height 175.3 cm (5' 9) 07/07/2016 2:43 PM TISSUE INSERTER Body Mass Index 33.08 07/07/2016 2:43 PM TISSUE INSERTER Plan of Treatment Health Maintenance Due Date [...] topic Insurance MEDICARE COMMERCIAL GENERIC Care Teams Porter Marina Relationship Specialty Start Date End Date Gerard Mo [address] [place] [address] PCP - General Family Medicine 07/04/16
--- OUTSIDE RECORDS SUMMARY | 2024-11-10 10:30 | XMS_ITS | Encounter Summary ---
Author Organization [facility] Address [address] [place] [address] Phone Care Team Providers Care Tugboat Mate Name Role Phone Gerard Mo MD Primary Care Provider [phone] Marcella Taylor MD Unavailable Anselmo Sampson MD Primary Care Provider [phone] Godfrey Villarreal MD Unavailable [phone] Encounter Details Date Type Department Care Team (Latest Contact Info) Description 08/09/2018 Orders Only [facility] Scanning, Provider Social History Tobacco Use Types Packs/Day Years Used Date Smoking Tobacco: Former Smokeless Tobacco: Never Sex and Gender Information Value Date Recorded Sex Assigned at Not on file Legal Sex Male 6:14 AM YEAST CULTURE OPERATOR Gender Identity Not on file Sexual [...] 10/09/2023 2:41 PM CDT COVID: Suspected 07/09/2024 07/09/202407/09/2024 11:36 AM YEAST CULTURE OPERATOR COVID: Suspected 07/09/2024 07/09/2024 07/09/2024 4:05 PM YEAST CULTURE OPERATOR documented as of this encounter Care Teams Tugboat Mate Relationship Specialty Start Date End Date Gerard Mo MD PCP - General 11/01/17 04/25/22 [place] [address] [address] PCP - General Family Practice 04/26/22 Marcella Taylor MD [address] [place] [address] [address] [place] [address] Medical Oncologist/Director Franchise Sales Medical Oncology 08/08/20 Godfrey Villarreal MD [address] [facility] 8108-10-06 [place] [address] Surgeon Vascular Surgery 09/20/24 documented as of this encounter
--- OUTSIDE RECORDS SUMMARY | 2024-11-10 10:30 | XMS_ITS | Encounter Summary ---
Author Organization [facility] Address [address] [place] [address] Phone Care Team Providers Care Proof Press Operator Name Role Phone Marcella Taylor MD Unavailable Anselmo Sampson MD Primary Care Provider [phone] Godfrey Villarreal MD Unavailable [phone] Encounter Details Date Type Department Care Team [...] on file Legal Sex Male 6:14 AM MEDICAL MANAGER Gender Identity Not on file Sexual Orientation [...] COVID: Suspected 07/09/2024 07/09/2024 07/09/2024 11:36 AM MEDICAL MANAGER COVID: Suspected 07/09/2024 07/09/2024 07/09/2024 4:05 PM MEDICAL MANAGER documented as of this encounter Care Teams Proof Press Operator Relationship Specialty [place] [address] [address] PCP - General Family Practice 04/26/22 Marcella Taylor MD [address] [place] [address] [address] [place] [address] Medical Oncologist/Brush Holder Inspector Medical Oncology 08/08/20 Godfrey Villarreal MD [address] [facility] 8108-10-06 [place] [address] Surgeon Vascular Surgery 09/20/24 documented as of this encounter
--- OUTSIDE RECORDS SUMMARY | 2024-11-10 10:30 | XMS_ITS | Encounter Summary ---
Author Organization [facility] Address [address] [place] [address] Phone Care Team Providers Care Casting Repairer Name Role Phone Gerard Mo MD Primary Care Provider [phone] Marcella Taylor MD Unavailable Anselmo Sampson MD Primary Care Provider + [phone] Godfrey Villarreal MD Unavailable [phone] Encounter Details Date Type Department Care Team [...] on file Legal Sex Male 6:14 AM CEMENT TESTER ASSISTANT Gender Identity Not on file Sexual Orientation [...] COVID: Suspected 07/09/2024 07/09/2024 07/09/2024 11:36 AM CEMENT TESTER ASSISTANT COVID: Suspected 07/09/2024 07/09/2024 07/09/2024 4:05 PM CEMENT TESTER ASSISTANT documented as of this encounter Care Teams Casting Repairer Relationship Specialty Start Date End Date Gerard Mo MD PCP - General 11/01/17 04/25/22 [place] [address] [address] PCP - General Family Practice 04/26/22 Marcella Taylor MD [address] [place] [address] [address] [place] [address] Medical Oncologist/Religion Professor Medical Oncology 08/08/20 Godfrey Villarreal MD [address] [facility] 8108-10-06 [place] [address] Surgeon Vascular Surgery 09/20/24 documented as of this encounter
--- OUTSIDE RECORDS SUMMARY | 2024-11-10 10:30 | XMS_ITS ---
Author Organization [facility] Address [address] [place] [address] Care Team Providers Care Manager Hospice Name Role Phone Marcella Taylor MD Unavailable Anselmo Sampson MD Primary Care Provider [phone] Godfrey Villarreal MD Unavailable Dialysis Access Sites [...] DEVICE Routine 09/20/2024 9 :00 AM CDT NH AN PROCEDURE PLACEHOLDER Routine 09/20/2024 7:59 AM CDT NH AN ELECTIVE ENDOTRACHEAL AIRWAY Routine 09/20/2024 7:59 [...] (HCC) HEMOGLOBIN A1C Timed 07/11/2024 9:14 PM TOP COLLAR MAKER LIPID PANEL Routine 05/13/2024 9:16 AM TOP COLLAR MAKER Type 2 diabetes mellitus with stage 4 chronic kidney disease, with long-term current use of insulin (HCC) Hyperlipidemia associated with type 2 diabetes mellitus (HCC) ALBUMIN CREATININE RATIO, URINE Routine 05/13/2024 9:16 AM TOP COLLAR MAKER Type 2 diabetes mellitus with stage 4 [...] (two) times a day with meals Active celrjeo-pumtelocq-h inc 333-133-5 mg tabletIndications:V itamin Deficiency Prevention [...] 1 tablet (4 mg total) by mouth quality inspector before breakfast 2023 Active cyanocobalamin (Vitamin B-12) [...] 07/11/2024 Assessment & Plan (07/14/2024 9:38 AM TOP COLLAR MAKER): Patient has had progression of CKD to now ESRD needing dialysis initiation given c/f uremia symptoms. Directly admitted per renal. Underwent tunneled dialysis catheter by IR on 07/12 and received HD on 07/12 and 07/13 -Hemodialysis as per Nephrology -Continue home bicarb URI (upper respiratory infection) 07/11/2024 Assessment & Plan (07/12/2024 12:59 PM TOP COLLAR MAKER): Suspected viral. COVID/flu/RSV neg 07/09. CXR neg 07/10. Was prescribed azithromycin on 07/09 which he took for 3 days. Will not continued further -Supportive care Hypomagnesemia 01/02/2024 CKD (chronic kidney disease) stage 4, GFR 15-29 ml/min 04/16/2023 Assessment & Plan (07/25/2023 10:06 AM TOP COLLAR MAKER): Chronic problem. Managed by Dr Flores. Has f/u appt at end of the month. Assessment & Plan (04/16/2023 8:48 PM TOP COLLAR MAKER): Chronic, stable Following with Access Lead Acute kidney injury 02/24/2023 (HFpEF) heart failure with preserved ejection fr action 02/24/2023 Assessment & Plan (02/24/2023 3:38 PM CDT): TTE with EF 77% and at least grade 1 diastolic dysfunction (indeterminate on last TTE). Not in exacerbation -Cont home lasix 40mg -strict I&Os, daily weights -F/u with O[facility] Yard Demurrage Clerk Dr. Payton CAD (coronary artery disease) 02/24/2023 Assessment & Plan (02/24/2023 3:38 PM CDT): S/p prior 5v CABG in 2013 -Cont statin and coreg -Intolerant of PATI-I/ARB due to worsening renal function -ASA held due to procedure -F/u with Cardiology outpatient Hyperlipidemia associated with type 2 diabetes aimee ulloa 02/24/2023 Assessment & Plan (07/11/2024 9:32 PM TOP COLLAR MAKER): -Continue home welchol -Atorvastatin for home pitavastatin (non-formulary) Assessment & Plan (05/13/2024 9:10 AM TOP COLLAR MAKER): Continue statin therapy Assessment & Plan (11/16/2023 11:18 AM CDT): Chronic problem. Currently taking Pitavatatin 4mg daily. Last lipid panel: 02/24/23 LDL=76, TO=537. Assessment & Plan (07/25/2023 10:22 AM TOP COLLAR MAKER): Chronic problem. Currently taking Pitavatatin 4mg daily. Last lipid panel: 02/24/23 LDL=76, WD=534. Assessment & Plan (04/16/2023 8:46 PM TOP COLLAR MAKER): On Pitavastatin therapy Tolerating well Assessment & Plan (02/24/2023 3:39 PM CDT): Cont statin and colesevelam Type 2 diabetes mellitus wit h stage 4 chronic kidney disease, with long-term current use of insulin 02/24/2023 Assessment & Plan (07/11/2024 9:31 PM TOP COLLAR MAKER): F/b endo. Home regimen: tresiba 5U QHS, aspart 6-8U TID with meals Pt/ report issues with hypoglycemia lately at home. -Will start with SSI for now; titrate/add scheduled insulin pending glucose trends Assessment & Plan (05/13/2024 9:10 AM TOP COLLAR MAKER): Chronic, uncontrolled, worsening Hemoglobin A1c 6.8 A1c [...] soon Daily foot care Advise to call [employer] and get the dexcom G 6 sensor [...] return to normal. If you're eating a broadcast journalist lunch--drop the Fiasp to 6 units. Current medications: Tresiba 6 units at bedtime Fiasp 4 units with breakfast & dinner, 8 units with lunch (6 units if broadcast journalist lunch) If blood sugar is between 151-200, add 1 units. If blood sugar is between 201-250, add 2 units. If blood sugar is between 251-300, add 3 units. If blood sugar is between 301-350, add 4 units. UTD on DM eye exam (06/15/23 at [facility]). UTD on labs. Discussed with José Luis [...] infection. Assessment & Plan (07/25/2023 10:02 AM TOP COLLAR MAKER): Chronic problem. A1c stable at 6.1% but having overnight lows & occasionally lows after LN. Call your supply company to switch from Dexcom G6 to Dexcom G7. Lower tresiba to 6 units nightly. If you notice that your over night readings are too high--start to increase by 1 unit weekly until they return to normal. If you're eating a broadcast journalist lunch--drop the Fiasp to 6 units. Current medications: Tresiba 6 units at bedtime Fiasp 4 units with breakfast & dinner, 8 units with lunch (6 units if broadcast journalist lunch) If blood sugar is between 151-200, add 1 units. If blood sugar is between 201-250, add 2 units. If blood sugar is between 251-300, add 3 units. If blood sugar is between 301-350, add 4 units. DM eye exam 06/2023 at [facility]. Letter sent to get copy [...] infection. Assessment & Plan (04/16/2023 8:47 PM TOP COLLAR MAKER): Chronic , improving overall hyperglycemia but now [...] TID +SSI; adjust PRN -F/u with OS data analyst report writer Proteinuria 02/24/2023 Assessment & Plan (02/25/2023 7:46 [...] 11/04/2021 Assessment & Plan (07/12/2024 12:57 PM TOP COLLAR MAKER): Getting aranesp outpatient -Trend CBC -Transfuse PRN [...] 11/04/2021 Assessment & Plan (07/11/2024 9:30 PM TOP COLLAR MAKER): -Continue home amlodipine, hydralazine, coreg Assessment & Plan (05/13/2024 9:11 AM TOP COLLAR MAKER): Chronic, fairly controlled for pt age Continue amlodipine Managed by nephrology Assessment & Plan (11/16/2023 11:18 AM CDT): Chronic problem. Controlled on current Carvedilol 25mg bid, amlodipine 10mg daily, lasix 20mg daily. not taking hydralazine currently Assessment & Plan (07/25/2023 10:05 AM TOP COLLAR MAKER): Chronic problem. Controlled on current Carvedilol 25mg bid, amlodipine 10mg daily, lasix 20mg daily. 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 Overview (08/14/2020): Added automatically from request for surgery [id number] Assessment & Plan (07/14/2024 9:38 AM TOP COLLAR MAKER): Pt of Dr Taylor -Holding home ripretinib [...] on file Legal Sex Male 6:14 AM TOP COLLAR MAKER Gender Identity Not on file Sexual Orientation [...] LAB BLOOD ORDERABLES Final Resul t [facility] Department [place] [address] * Differential, auto (10/16/2024 10:22 AM CDT) Neutrophil abs 5.36 1.50 - 6.50 K/cumm Comment:Testing performed by : [facility], [address] [place] [id number] Imm gran abs 0.08 0.00 - 0.10 K/cumm [facility] Lymphocyte abs 1.50 0.80 - 3.30 K/cumm [facility] Monocyte abs 0.64 0.20 - 0.80 K/cumm [facility] Eosinophil abs 0.37 0.00 - 0.50 K/cumm [facility] Basophil abs 0.06 0.00 - 0.10 K/cumm [facility] Neutrophil pct 67.0 % [facility] Comment: Interpretive Data Percent cell count reference ranges are not reported, since discordance with absolute values may lead to misinterpretation of CBC data. Current Interpretive Data was last revised on 2017. Imm gran pct 1.0 % [facility] Comment: Interpretive Data Percent cell count reference ranges are not reported, since discordance with absolute values may lead to misinterpretation of CBC data. Current Interpretive Data was last revised on 2017. Lymphocyte pct 18.7 % [facility] Comment: Interpretive Data Percent cell count [...] LAB BLOOD ORDERABLES Final Resul t [facility] Department [place] [address] * (ABNORMAL) CBC with auto differential (10/16/2024 10:22 AM CDT) WBC 8.01 3.80 - 9.90 K/cumm Comment:Testing performed by : [address] [address] Hgb 11.2(L) 13.0 - 17.5 g/dL [facility] Comment:Testing performed by : [address] [address] Hct 34.4(L) 38.9 - 50.3 % [facility] Comment:Testing performed by : [address] [address] Plt 165 150 - 400 K/cumm [facility] Comment:Testing performed by : [address] [address] MPV 10.7 9.1 - 12.3 fL [facility] RBC 3.94(L) 4.30 - 5.80 M/cumm [facility] MCV 87.3 81.3 - 96.4 fL [facility] MCH 28.4 27.1 - 33.3 pg [facility] MCHC 32.6 32.3 - 35.7 g/dL [facility] RDW CV 14.6 11.1 - 14.9 % [facility] RDW SD 46.6 35.7 - 48.1 fL [facility] NRBC abs 0.00 0.00 - 0.01 K/cumm [facility] ANC Prelim 5.36 1.50 - 6.50 K/cumm [facility] Comment: Interpretive Data The rapid ANC is a preliminary automated count and may vary from the final ANC (Neut Abs) reported in the WBC differential that follows. Current interpretive data was last revised 2024. Blood 10/16/2024 10:2 2 AM CDT 10/16/2024 10:22 AM CDT Marcella Taylor MD LAB BLOOD ORDERABLES Final Resul t Performing Organization Address [facility] de Phone Number [facility] Department [place] [address] * Lactate dehydrogenase (LD) (10/16/2024 10:22 AM CDT) Lactate dehydrogenase (LDH) 245 100 - 250 Units/L Comment:Testing performed by : [address] [address] Blood 10/16/2024 10:2 2 AM CDT 10/16/2024 10:22 AM CDT Marcella Taylor MD LAB BLOOD ORDERABLES Final Resul t Performing Organization Address [facility]/ZIP Co de Phone Number [facility] [place] [address] * (ABNORMAL) Comprehensive metabolic panel (10/16/2024 10:22 AM CDT) Sodium 138 135 - 145 mmol/L Comment:Testing performed by : [facility], [address] [facility] [address] Potassium, pl 4.6 3.3 - 4.9 mmol/L [facility] Chloride 104 97 - 110 mmol/L [facility] CO2 26 22 - 32 mmol/L [facility] Anion gap 8 2 - 15 mmol/L [facility] BUN 41(H) 6 - 25 mg/dL [facility] Creatinine 5.47(H) 0.80 - 1.30 mg/dL [facility] Glucose 230(H) 70 - 199 mg/dL [facility] Comment: Interpretive Data Fasting glucose >/= [...] Calcium 8.4(L) 8.5 - 10.3 mg/dL [facility] Bilirubin, total 0.8 0.1 - 1.2 mg/dL [facility] Protein, pl 6.5 6.5 - 8.5 g/dL [facility] Albumin 3.7 3.5 - 5.0 g/dL [facility] Alk phos 84 40 - 130 Units/L [facility] ALT 12 7 - 55 Units/L [facility] AST 19 10 - 50 Units/L [facility] Blood 10/16/2024 10:2 2 AM CDT 10/16/2024 10:22 AM CDT us Marcella Taylor MD LAB BLOOD ORDERABLES Final Resul t [facility] Department [place] [address] * Vitamin B12 (10/16/2024 10:20 AM CDT) Vitamin B12 795 230 - 1,250 pg/mL Blood 10/16/2024 10:2 0 AM CDT 10/16/2024 1:49 PM CDT us Marcella Taylor MD LAB BLOOD ORDERABLES Final Resul t [facility] Department [place] [address] * PET/CT FDG Skull to Thigh (10/16/2024 [...] obtained. The study was interpreted on the MONOQI workstation. The mean liver SUV (reported for inspector quality assurance purposes) is 2.4. The total [...] obtained. The study was interpreted on the [employer] workstation. The mean liver SUV (reported for inspector quality assurance purposes) is 2.4. The total [...] AM CDT Narrative 10/11/2024 1:44 PM CDT [facility] - Department of Vascular Surgery, Vascular Laboratory [address] [place] [address] Dialysis Access Fistula/Graft Duplex Report Patient Name: JOSÉ LUIS GAMBLE : 1945 (79y ) Gender: M Study Date: 10/11/2024 10:49:25 AM Junior Accountant Bookkeeper: GONZALO Location: [facility] Order Provider: GODFREY VILLARREAL Quality: Adequate [...] Arm Diameter 0.46 cm Rt Deep Vein [place] 58.40 cm/s Rt Outflow Distal Arm Depth 0.27 cm Rt Axillary Vein PSV 58.20 cm/s Rt Outflow Mid Arm Diameter 0.38 cm Rt Subclavian Vein 26.60 cm/s Rt Outflow Mid Arm Depth 0.56 cm Rt Outflow Vein (Graft) Volume Flow Average 310 cc/min Rt Outflow Proximal Arm Diameter 0.43 cm Rt Outflow Proximal Arm Depth 0.71 cm Rt Deep Vein [place] Diameter 0.43 cm Rt Deep Vein [place] Depth 2.10 cm Rt Inflow Artery Diameter 0.53 cm Diameter/Depth Value Units Velocities Value Units FINDINGS: Performing Junior Accountant Bookkeeper: Jayda Dunn RVT. [place] Arterial Inflow Normal: No evidence of arterial [...] above. Electronically Signed By: Josias Cox MD [facility] [phone] 10/11/2024 1:30:12 PM CDT Procedure Note Josias Cox MD - 10/11/2024 [facility] - Department of Vascular Surgery,Vascular Laboratory [address] [place] [id number] Dialysis Access Fistula/Graft Duplex Report Patient Name: JOSÉ LUIS GAMBLE : 1945 (79y ) Gender: M Study Date: 10/11/2024 10:49:25 AM Junior Accountant Bookkeeper: GONZALO Location: [facility] Order Provider: GODFREY VILLARREAL Quality: Adequate [...] Arm Diameter 0.46 cm Rt Deep Vein [place] 58.40cm/s Rt Outflow Distal Arm Depth 0.27 cm Rt Axillary Vein PSV 58.20 cm/s Rt Outflow Mid Arm Diameter 0.38 cm Rt Subclavian Vein 26.60 cm/s Rt Outflow Mid Arm Depth 0.56 cm Rt Outflow Vein (Graft) Volume FlowAverage 310 cc/min Rt Outflow Proximal Arm Diameter 0.43 cm Rt Outflow Proximal Arm Depth 0.71 cm Rt Deep Vein [place] Diameter 0.43 cm Rt Deep Vein [place] Depth 2.10 cm Rt Inflow Artery Diameter 0.53 cm Diameter/Depth Value Units Velocities Value Units FINDINGS: Performing Junior Accountant Bookkeeper: Jayda Dunn RVT. [place] Arterial Inflow Normal: No evidence of arterial [...] above. Electronically Signed By: Josias Cox MD [facility] [phone] 10/11/2024 1:30:12 PM CDT Godfrey Villarreal MD IMG US PROCEDURES Final R esult * POCT glucose (09/20/2024 9:25 AM CDT) Glucose, POC 145 70 - 199 mg/dL Blood 09/20/2024 9:25 AM CDT 09/20/2024 9:25 AM CDT Godfrey Villarreal MD LAB POCT ORDERABLES - DEV ICE Final Result Performing Organization Address [facility] Co de Phone Number [facility] Department [place] [address] * POCT glucose (09/20/2024 9:00 AM CDT) Glucose, POC 133 70 - 199 mg/dL Blood 09/20/2024 9:00 AM CDT 09/20/2024 9:00 AM CDT Godfrey Villarreal MD LAB POCT ORDERABLES - DEV ICE Final Result Performing Organization Address [facility] de Phone Number [facility] Department [place] [address] * NH AN ELECTIVE ENDOTRACHEAL AIRWAY, NH AN PROCEDURE PLACEHOLDER (09/20/2024 7:59 AM CDT) Narrative Caridad Hernandez CRNA - 09/20/2024 7:59 AM CDT Caridad Hernandez CRNA 09/20/2024 8:00 AM Airway Patient location: OR Urgency: elective Date/time: 09/20/2024 7:36 AM Indications for airway management: anesthesia Difficult airway: no Staff: Supervising provider: Joshua Rodgers MD Placed by: DIRECTOR REGULATORY AGENCY: Caridad Hernandez CRNA Emergent airway documentation: Risks [...] POC 3.2(L) 3.3 - 4.9 mmol/L [facility] Comment: Interpretive Data Not all point of care methods assess for hemolysis. Confirm with instrument and retest K+ if not consistent with clinical signs and symptoms. Current Interpretive Data was last revised on 2023. Glucose, POC 165 70 - 199 mg/dL [facility] Hct, POC 33.0(L) 41.4 - 51.6 % [facility] Total Hb, POC 11.0(L) 13.8 - 17.2 g/dL [facility] Blood 09/20/2024 7:05 AM CDT 09/20/2024 7:05 AM CDT us Godfrey Villarreal MD LAB POCT ORDERABLES - DEV ICE Final Result [facility] [place] [address] * (ABNORMAL) eGFR (08/14/2024 11:18 AM CDT) Pathologist [facility] eGFR 10(L) >=60 mL/min/1. 73 m2 Comment: [...] LAB BLOOD ORDERABLES Final Resul t [facility] Department [place] [address] * (ABNORMAL) Differential, auto (08/14/2024 11:18 AM CDT) Pathologist [facility] Neutrophil abs 7.7(H) 1.5 - 6.5 K/cumm Comment:Testing performed by : [facility], [address] [place] [id number] Imm gran abs 0.1 0.0 - 0.1 K/cumm [facility] Lymphocyte abs 2.0 0.8 - 3.3 K/cumm [facility] Monocyte abs 0.8 0.2 - 0.8 K/cumm [facility] Eosinophil abs 0.4 0.0 - 0.5 K/cumm [facility] Basophil abs 0.1 0.0 - 0.1 K/cumm [facility] Neutrophil pct 69.7 % [facility] Comment: Interpretive Data Percent cell count reference ranges are not reported, since discordance with absolute values may lead to misinterpretation of CBC data. Current Interpretive Data was last revised on 2017. Imm gran pct 0.5 % [facility] Comment: Interpretive Data Percent cell count reference ranges are not reported, since discordance with absolute values may lead to misinterpretation of CBC data. Current Interpretive Data was last revised on 2017. Lymphocyte pct 17.9 % [facility] Comment: Interpretive Data Percent cell count reference ranges are not reported, since discordance with absolute values may lead to misinterpretation of CBC data. Current Interpretive Data was last revised on 2017. Monocyte pct 7.6 % [facility] Comment: Interpretive Data Percent cell count reference ranges are not reported, since discordance with absolute values may lead to misinterpretation of CBC data. Current Interpretive Data was last revised on 2017. Eosinophil pct 3.6 % [facility] Comment: Interpretive Data Percent cell count reference ranges are not reported, since discordance with absolute values may lead to misinterpretation of CBC data. Current Interpretive Data was last revised on 2017. Basophil pct 0.7 % [facility] Comment: Interpretive Data Percent cell count reference ranges are not reported, since discordance with absolute values may lead to misinterpretation of CBC data. Current Interpretive Data was last revised on 2017. Blood 08/14/2024 11:1 8 AM CDT 08/14/2024 11:18 AM CDT us Marcella Taylor MD LAB BLOOD ORDERABLES Final Resul t [facility] [place] [address] * (ABNORMAL) CBC with auto differential (08/14/2024 11:18 AM CDT) WBC 11.0(H) 3.8 - 9.9 K/cumm Comment:Testing performed by : [address] [address] Hgb 10.3(L) 13.0 - 17.5 g/dL [facility] Comment:Testing performed by : [address] [address] Hct 32.1(L) 38.9 - 50.3 % [facility] Comment:Testing performed by : [address] [address] Plt 187 150 - 400 K/cumm [facility] Comment:Testing performed by : [address] [address] MPV 9.6 9.1 - 12.3 fL [facility] RBC 3.88(L) 4.30 - 5.80 M/cumm [facility] MCV 82.7 81.3 - 96.4 fL [facility] MCH 26.5(L) 27.1 - 33.3 pg [facility] MCHC 32.1(L) 32.3 - 35.7 g/dL [facility] RDW CV 17.1(H) 11.1 - 14.9 % [facility] RDW SD 51.6(H) 35.7 - 48.1 fL [facility] NRBC abs 0.00 0.00 - 0.01 K/cumm [facility] Blood 08/14/2024 11:1 8 AM CDT 08/14/2024 11:18 AM CDT us Marcella Taylor MD LAB BLOOD ORDERABLES Final Resul t [facility] Department [place] [address] * (ABNORMAL) Lactate dehydrogenase (LD) (08/14/2024 11:18 AM CDT) Lactate dehydrogenase (LDH) 343(H) 100 - 250 Units/L Comment:Testing performed by : [address] [address] Blood 08/14/2024 11:1 8 AM CDT 08/14/2024 11:18 AM CDT us Marcella Taylor MD LAB BLOOD ORDERABLES Final Resul t [facility] Department [place] [address] * (ABNORMAL) Comprehensive metabolic panel (08/14/2024 11:18 AM CDT) Pathologist [facility] Sodium 142 135 - 145 mmol/L Comment:Testing performed by : [facility], [address] [place] [address] Potassium, pl 4.7 3.3 - 4.9 mmol/L [facility] Chloride 107 97 - 110 mmol/L [facility] CO2 27 22 - 32 mmol/L [facility] Anion gap 8 2 - 15 mmol/L [facility] BUN 41(H) 6 - 25 mg/dL [facility] Creatinine 5.63(H) 0.80 - 1.30 mg/dL [facility] Glucose 170 70 - 199 mg/dL [facility] Comment: Interpretive Data Fasting glucose >/= [...] Calcium 8.0(L) 8.5 - 10.3 mg/dL [facility] Bilirubin, total 0.5 0.1 - 1.2 mg/dL [facility] Protein, pl 6.5 6.5 - 8.5 g/dL [facility] Albumin 3.6 3.5 - 5.0 g/dL [facility] Alk phos 83 40 - 130 Units/L [facility] ALT 11 7 - 55 Units/L [facility] AST 22 10 - 50 Units/L [facility] Blood 08/14/2024 11:1 8 AM CDT 08/14/2024 11:18 AM CDT us Marcella Taylor MD LAB BLOOD ORDERABLES Final Resul t [facility] Department of Laboratories [place] [id number] * US Vein Mapping Fistula Access, Bilateral (08/12/2024 9:16 AM CDT) Anatomical Region Laterality Modality Vascular Bilateral Ultrasound 08/12/2024 7:00 AM CDT Narrative 08/12/2024 12:47 PM CDT [facility] - Department of Vascular Surgery, Vascular Laboratory [address] [place] [id number] Upper Extremity Vein Mapping Report Patient Name: JOSÉ LUIS GAMBLE : 1945 (78y 10m) Study Date: 08/12/2024 7:00:58 AM Gender: M Junior Accountant Bookkeeper: GONZALO Location: [facility] Provider: GODFREY VILLARREAL Quality: Adequate Order [...] Value Units Left Value Units FINDINGS: Performing Junior Accountant Bookkeeper: Jayda Dunn RVT. Bilateral: Venous Doppler signals [...] above. Electronically Signed By: Josias Cox MD [facility] [phone] 08/12/2024 12:46:53 PM CDT Procedure Note Josias Cox MD - 08/12/2024 [facility] - Department of Vascular Surgery,Vascular Laboratory [address] [place] [address] Upper Extremity Vein Mapping Report Patient Name: JOSÉ LUIS GAMBLE : 1945 (78y 10m) Study Date: 08/12/2024 7:00:58 AM Gender: M Junior Accountant Bookkeeper: GONZALO Location: [facility] Provider: GODFREY VILLARREAL Quality: Adequate Order [...] Value Units Left Value Units FINDINGS: Performing Junior Accountant Bookkeeper: Jayda Dunn RVT. Bilateral: Venous Doppler signals [...] above. Electronically Signed By: Josias Cox MD [facility] [phone] 08/12/2024 12:46:53 PM CDT us Godfrey Villarreal MD IMG US PROCEDURES Final R esult * (ABNORMAL) Hemoglobin A1c (07/11/2024 9:14 PM TOP COLLAR MAKER) Hgb A1C 6.3(H) 4.0 - 5.6 % Estimated Average Glucose 134 mg/dL [facility] Comment: The ADA recommends reporting an estimated Average Glucose (eAG) with all Hemoglobin A1c results using the equation derived from a study of 507 normal and diabetic adults. Minority populations were underrepresented and children were not included. (Diabetes Care 2020; 43(S1): S66-S76). The eAG is not equivalent to a fasting glucose. Blood 07/11/2024 9:14 PM TOP COLLAR MAKER 07/11/2024 9:39 PM TOP COLLAR MAKER Narrative [facility] - 07/12/2024 8:23 AM TOP COLLAR MAKER Reflex us Rex Reid MD LAB BLOOD ORDERABLES Final Resul t [facility] Department [place] [address] * (ABNORMAL) Albumin Creatinine Ratio, Urine (05/13/2024 9:16 AM TOP COLLAR MAKER) Albumin Ur 3,688.8 mg/L Comment: Interpretive Data No reference range established. Current interpretive data was last revised 2018. Creatinine Ur 59.2 mg/dL [facility] Comment: Interpretive Data No reference range established. Current interpretive data was last revised 2018. Albumin Creatinine Ratio, Ur 6,231(H) 1 - 29 mg/g [facility] Urine 05/13/2024 9:16 AM TOP COLLAR MAKER 05/13/2024 2:55 PM TOP COLLAR MAKER us Matt Kendrick MD LAB URINE ORDERABLE S Final Result [facility] [address] [facility] Department [place] [address] * (ABNORMAL) Lipid panel (05/13/2024 9:16 AM TOP COLLAR MAKER) Cholesterol 128 30 - 199 mg/dL Comment: [...] 3 [facility] Blood 05/13/2024 9:16 AM TOP COLLAR MAKER 05/13/2024 2:55 PM TOP COLLAR MAKER us Matt Kendrick MD LAB BLOOD ORDERABLE S Final Result [facility] [address] Department [place] [address] * CT abdomen pelvis without contrast (12/14/2023 [...]
--- OUTSIDE RECORDS SUMMARY | 2024-11-10 10:30 | XMS_ITS | Continuity of Care Document ---
Author Organization [facility] Address [address] [place] [address] [place] [address] Phone Care Team Providers Care Waste Collection Driver Name Role Phone Gerard Mo MD Unavailable [...] Diagnoses Date Provider Providers Copied on Encounter [facility], [address], [place], [place], [id number], [place] tel:[phone] [facility] No Information [address], [place], [place], [address] , [place]. tel:[phone] OFFICE/OUTPA TIENT VISIT, EST [facility], [address], [place], [place], [address], [place] tel:[phone] [facility] suture1 (chief complaint) Pain in left hand [address], [place], [place], [address] , [place]. tel:[phone] Referring Provider: [address] [facility] [address], [place], [place], [address]. tel:[phone] OFFICE/OUTPA TIENT VISIT, [facility], [address], [place], [place], [address], [place] tel:[phone] [facility] diarrhea (chief complaint) diarrhea1 (chief complaint) DiarrheaEssential (primary) hypertensionBPH w/ lower urinary tract symptomsEncounter for general adult medical exam w abnormal findingsAnemiaMalig nant neoplasm of small intestine, unspecifiedType 2 diabetes mellitus without complications [address], [place], [place], [address] , [place]. [phone] Referring Provider: [address], [place], [place], [address]. tel:[phone] OFFICE/OUTPA TIENT VISIT, [facility], [address], [place], [place], [address], [place] tel:[phone] [facility] Anemia1 (chief complaint) DM (chief complaint) anxiety1 (chief complaint) insomnia1 (chief complaint) AnemiaType 2 diabetes mellitus without complicationsSleep disorder [address], [place], [place], [address] , [place]. tel:[phone] Referring Provider: Gerard Mo, [address], [place], [place], [address]. tel:[phone] OFFICE/OUTPA TIENT VISIT, [facility], [address], [place], [place], [address], [place] tel:[phone] [facility] Medicine colon CA (chief complaint) HTN (chief complaint) DM (chief complaint) Malignant neoplasm of ascending colonType 2 diabetes mellitus without complicationsEssent ial (primary) hypertensionAnemia 0-201 [address], [place], [place], [address] , [place]. tel:[phone] Referring Provider: Gerard Mo, [address] [facility] [address], [place], [place], [address]. 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 Pt is on metformin and [...] decides to go to see oncologist at [facility] Pt will start chemo soon. Pt already seen the physician at [facility] DM Pt has DM. Pt ta kes [...] just had colectomy two weeks ago at [facility]. Pt is seeing surgeon now. Pt has [...]
--- OUTSIDE RECORDS SUMMARY | 2024-11-10 10:30 | XMS_ITS | Encounter Summary ---
Author Organization [facility] Address [address] [place] [address] Phone Care Team Providers Care Snag Grinder Name Role Phone Marcella Taylor MD Primary Care Provider [phone] Gerard Mo MD Primary Care Provider [phone] Marcella Taylor MD Unavailable Anselmo Sampson MD Primary Care Provider [phone] Godfrey Villarreal MD Unavailable [phone] Encounter Details Date Type Department Care Team (Late st Contact Info) Description 10/26/2017 [facility] Only [facility] ProviderQuinten MD [address] [place] [address] Social History Tobacco Use Types Packs/Day Years Used Date Smoking Tobacco: Former Sex and Gender Information Value Date Recorded Sex Assigned at Not on file 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 Historical Provider LAB BLOOD ORDERABLES Jocelyn l Result documented in this encounter Visit Diagnoses Not on filedocumented in this encounter Additional Health Concerns Infection Onset Date Last Indicated Resolved Time COVID: Suspected 10/09/2023 10/09/2023 10/09/2023 2:41 PM CDT COVID: Suspected 07/09/2024 07/09/2024 07/09/2024 11:36 AM STRETCH BOX TENDER COVID: Suspected 07/09/2024 07/09/2024 07/09/2024 4:05 PM STRETCH BOX TENDER documented as of this encounter Care Teams Snag Grinder Relationship Specialty Start Date End Date Marcella Taylor MD [address] [place] [address] PCP - General 10/26/17 10/31/17 Gerard Mo MD [address] [place] [address] PCP - General 11/01/17 04/25/22 [place] [address] [address] PCP - General Family Practice 04/26/22 Marcella Taylor MD [address] [place] [address] Medical Oncologist/Cuff Presser Medical Oncology 08/08/20 Godfrey Villarreal MD [address] [facility] [address]06 [place] [address] Surgeon Vascular Surgery 09/20/24 documented as of this encounter
--- NOTE | 2024-11-10 11:44 | PC.NURSE ---
Pt has dialysis port to right chest. Pt goes to Dialysis T, TH and Sat.
--- NOTE | 2024-11-10 11:45 | ED.EXTPRO ---
HPI - Extremity Problem General Chief complaint: Extremity Problem,Nontraumatic Stated complaint: Swelling to L. foot x3 days w/out injury Time Seen by Provider: 11/10/24 11:43 Source: patient and family History of Present Illness HPI Narrative: 79 years old white male with history of diabetes, hypertension, hyperlipidemia, and hemodialysis, last dialysis was yesterday complaining of left ankle left foot pain started 3 days ago. Getting worse. He denies any trauma, fever, chills, history of gout. Related Data Allergies Allergy/AdvReac Type Severity Reaction Status Date / Time No Known Allergies Allergy Verified 11/10/24 11:43 Review of Systems Review of Systems: All systems reviewed & are unremarkable except as noted in HPI and below PMFSH Past Medical History Medical History Insulin dependent diabetes mellitus Social History Social History Smoking status: Former smoker Smoking end date: 06/05/10 Alcohol intake: never Do You Feel Safe in your Home?: Yes Lack of Transportation: No Lack of Food: Never True Current Housing: I Have Housing Concerned About Future Housing: No Difficulty Paying Gas/Electric Bills: No Difficulty Paying for Meds: No Currently Unemployed: No Education: High School Diploma/GED Exam Narrative: General appearance: Well-developed, well-nourished Skin: Normal color Head: Normocephalic, nontraumatic Eyes: Clear conjunctiva ENT: Oropharynx normal, ears normal, nose normal Neck: Supple, nontender Chest and respiratory: Airway patent, no respiratory distress, no accessory muscle use Heart: Regular rate/rhythm Abdomen: Soft, nontender, no organomegaly, quiet bowel sounds Vascular: Normal peripheral pulses, normal capillary refill. Musculoskeletal: Left ankle and left foot showed diffuse swelling, tenderness medial malleolus, no erythema, no deformity, no warmth, no wound. Neurologic: Alert and oriented ?3, SUBMARINE DIVER is normal as tested, no gross motor deficit Course Consultations Consultation #1: DR CROSS SPLINT, CRUTCHES, OUTPATIENT FOLLOW-UP Date: 11/10/24 Vital Signs Vital signs: Vital Signs Temperature 36.5 C 11/10/24 10:27 Pulse Rate 70 11/10/24 10:27 Respiratory Rate 16 11/10/24 10:27 Blood Pressure 171/51 H 11/10/24 10:27 Pulse Oximetry 98 11/10/24 10:27 Oxygen Delivery Room Air 11/10/24 10:27 Temperature 36.5 C 11/10/24 10:27 Pulse Rate 70 11/10/24 10:27 Respiratory Rate 16 11/10/24 10:27 Blood Pressure 171/51 H 11/10/24 10:27 Pulse Oximetry 98 11/10/24 10:27 Oxygen Delivery Room Air 11/10/24 10:27 MDM - Extremity (Nontraumatic) MDM Narrative Medical decision making narrative: Patient came with nontraumatic left ankle left foot pain 3 days ago. Vital signs showing blood pressure 171/51 otherwise within normal limit Physical examination showing diffuse tenderness slight swelling of the left ankle and left foot and limited range of motion. Differential diagnosis include fracture, renal osteodystrophy, sprain/strain, arthritis X-ray of the left ankle and left foot showed Differential Diagnosis Differential diagnosis: Likely other (As above) Imaging Data Radiologist's impression: Impressions Ankle X-Ray 11/10/24 12:27 Impression: Probable large osteochondroma of the distal tibia with associated chronic pressure remodeling of the distal fibular shaft. Foot X-Ray 11/10/24 12:29 Impression: Unremarkable left foot radiographs. 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 Leach/Dr landeros for appointment, take Tylenol as as needed for aches and pain, continue home medications. Crutches Splint Patient Language: Bulgarian Prescriptions: New tramadol 50 mg tablet 50 mg PO Q4H PRN (Reason: pain) Qty: 30 0RF No Action hydrocodone-acetaminophen 5-325 mg tablet 1 tablet PO Q6H PRN (Reason: pain) Qty: 12 0RF docusate sodium [Colace] 100 mg capsule 100 mg PO BID Qty: 14 0RF hydralazine 100 mg tablet 100 mg PO BID Qty: 180 3RF Follow-up/Referrals: Adrián,Anselom Walker MD [Primary Care Provider] - Aguilar Villegas MD [Physician] - 11/11/24 Braxton Cross MD [Physician] - 11/11/24
--- OUTSIDE RECORDS SUMMARY | 2024-11-10 11:52 | XMS_ITS | Encounter Summary ---
Author Organization [facility] Address [address] [place] [address] Phone Care Team Providers Care Religious Assistant Name Role Phone Marcella Taylor MD Unavailable Anselmo Sampson MD Primary Care Provider [phone] Godfrey Villarreal MD Unavailable [phone] Encounter Details Date Type Department Care Team (Latest Contact Info) Description 10/16/2024 Results Follow-Up 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 Gender Identity Not on file Sexual Orientation [...] on filedocumented in this encounter Care Teams Religious Assistant Relationship Specialty [place] [address] [address] PCP - General Family Practice 04/26/22 Marcella Taylor MD [address] [place] [address] [address] [place] [address] Medical Oncologist/Leather Belt Loop Cutter Medical Oncology 08/08/20 Godfrey Villarreal MD [address] [facility] [address] [place] [address] Surgeon Vascular Surgery 09/20/24 documented as of this encounter
--- OUTSIDE RECORDS SUMMARY | 2024-11-10 11:52 | XMS_ITS | Clinical Summary ---
Author Organization [facility] Address [address] [place] [address] Care Team Providers Care Head And Neck Surgeon Name Role Phone Marcella Taylor MD Unavailable Anselmo Sampson MD Primary Care Provider [phone] Godfrey Villarreal MD Unavailable Allergies No known [...] (two) times a day with meals Active jywtdqv-cgxuzoxdg-u inc 333-133-5 mg tabletIndications:V itamin Deficiency Prevention [...] with long-term current use of insulin ([facility]) Check blood sugar 3 times daily 200 [...] with long-term current use of insulin ([facility]) Inject 0.06 mL (6 Units total) under [...] 1 tablet (4 mg total) by mouth compensator before breakfast 2023 Active cyanocobalamin (Vitamin B-12) [...] times a day 2024 Active blood-glucose sensor ([employer] G7 Sensor) deviceIndications:t ype 2 diabetes mellitus [...] 07/11/2024 Assessment & Plan (07/14/2024 9:38 AM CUPOLA MELTING SUPERVISOR): Patient has had progression of CKD to now ESRD needing dialysis initiation given c/f uremia symptoms. Directly admitted per renal. Underwent tunneled dialysis catheter by IR on 07/12 and received HD on 07/12 and 07/13 -Hemodialysis as per Nephrology -Continue home bicarb URI (upper respiratory infection) 07/11/2024 Assessment & Plan (07/12/2024 12:59 PM CUPOLA MELTING SUPERVISOR): Suspected viral. COVID/flu/RSV neg 07/09. CXR neg 07/10. Was prescribed azithromycin on 07/09 which he took for 3 days. Will not continued further -Supportive care Hypomagnesemia 01/02/2024 CKD (chronic kidney disease) stage 4, GFR 15-29 ml/min 04/16/2023 Assessment & Plan (07/25/2023 10:06 AM CUPOLA MELTING SUPERVISOR): Chronic problem. Managed by Dr Flores. Has f/u appt at end of the month. Assessment & Plan (04/16/2023 8:48 PM CUPOLA MELTING SUPERVISOR): Chronic, stable Following with Tail Edger Acute kidney injury 02/24/2023 (HFpEF) heart failure with preserved ejection fr action 02/24/2023 Assessment & Plan (02/24/2023 3:38 PM CDT): TTE with EF 77% and at least grade 1 diastolic dysfunction (indeterminate on last TTE). Not in exacerbation -Cont home lasix 40mg -strict I&Os, daily weights -F/u with OSH [employer] Vice President Dr. Payton CAD (coronary artery disease) 02/24/2023 Assessment & Plan (02/24/2023 3:38 PM CDT): S/p prior 5v CABG in 2012 -Cont statin and coreg -Intolerant of PATI-I/ARB due to worsening renal function -ASA held due to procedure -F/u with Cardiology outpatient Hyperlipidemia associated with type 2 diabetes aimee ulloa 02/24/2023 Assessment & Plan (07/11/2024 9:32 PM CUPOLA MELTING SUPERVISOR): -Continue home welchol -Atorvastatin for home pitavastatin (non-formulary) Assessment & Plan (05/13/2024 9:10 AM CUPOLA MELTING SUPERVISOR): Continue statin therapy Assessment & Plan (11/16/2023 11:18 AM CDT): Chronic problem. Currently taking Pitavatatin 4mg daily. Last lipid panel: 02/24/23 LDL=76, YS=216. Assessment & Plan (07/25/2023 10:22 AM CUPOLA MELTING SUPERVISOR): Chronic problem. Currently taking Pitavatatin 4mg daily. Last lipid panel: 02/24/23 LDL=76, UL=124. Assessment & Plan (04/16/2023 8:46 PM CUPOLA MELTING SUPERVISOR): On Pitavastatin therapy Tolerating well Assessment & Plan (02/24/2023 3:39 PM CDT): Cont statin and colesevelam Type 2 diabetes mellitus wit h stage 4 chronic kidney disease, with long-term current use of insulin 02/24/2023 Assessment & Plan (07/11/2024 9:31 PM CUPOLA MELTING SUPERVISOR): F/b endo. Home regimen: tresiba 5U QHS, aspart 6-8U TID with meals Pt/ report issues with hypoglycemia lately at home. -Will start with SSI for now; titrate/add scheduled insulin pending glucose trends Assessment & Plan (05/13/2024 9:10 AM CUPOLA MELTING SUPERVISOR): Chronic, uncontrolled, worsening Hemoglobin A1c 6.8 A1c [...] soon Daily foot care Advise to call [employer] and get the dexcom G 6 sensor [...] return to normal. If you're eating a trademark attorney lunch--drop the Fiasp to 6 units. Current medications: Tresiba 6 units at bedtime Fiasp 4 units with breakfast & dinner, 8 units with lunch (6 units if trademark attorney lunch) If blood sugar is between 151-200, [...] infection. Assessment & Plan (07/25/2023 10:02 AM CUPOLA MELTING SUPERVISOR): Chronic problem. A1c stable at 6.1% but having overnight lows & occasionally lows after LN. Call your supply company to switch from Dexcom G6 to Dexcom G7. Lower tresiba to 6 units nightly. If you notice that your over night readings are too high--start to increase by 1 unit weekly until they return to normal. If you're eating a trademark attorney lunch--drop the Fiasp to 6 units. Current medications: Tresiba 6 units at bedtime Fiasp 4 units with breakfast & dinner, 8 units with lunch (6 units if trademark attorney lunch) If blood sugar is between 151-200, [...] infection. Assessment & Plan (04/16/2023 8:47 PM CUPOLA MELTING SUPERVISOR): Chronic , improving overall hyperglycemia but now [...] TID +SSI; adjust PRN -F/u with OSH electrical tryout person Proteinuria 02/24/2023 Assessment & Plan (02/25/2023 7:46 [...] 11/04/2021 Assessment & Plan (07/12/2024 12:57 PM CUPOLA MELTING SUPERVISOR): Getting aranesp outpatient -Trend CBC -Transfuse PRN [...] 11/04/2021 Assessment & Plan (07/11/2024 9:30 PM CUPOLA MELTING SUPERVISOR): -Continue home amlodipine, hydralazine, coreg Assessment & Plan (05/13/2024 9:11 AM CUPOLA MELTING SUPERVISOR): Chronic, fairly controlled for pt age Continue amlodipine Managed by nephrology Assessment & Plan (11/16/2023 11:18 AM CDT): Chronic problem. Controlled on current Carvedilol 25mg bid, amlodipine 10mg daily, lasix 20mg daily. not taking hydralazine currently Assessment & Plan (07/25/2023 10:05 AM CUPOLA MELTING SUPERVISOR): Chronic problem. Controlled on current Carvedilol 25mg bid, amlodipine 10mg daily, lasix 20mg daily. 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 Overview (08/14/2020): Added automatically from request for surgery [id number] Assessment & Plan (07/14/2024 9:38 AM CUPOLA MELTING SUPERVISOR): Pt of Dr Taylor -Holding home ripretinib [...] Type Department Care Team Description 11/08/2024 Telephone [facility] [address] [facility] Advanced Medicine 8th [place] [address] [place] [address] Godfrey Villarreal MD 11/01/2024 Documentation [facility] [address] [facility] Floor 1 [place] [address] Godfrey Villarreal MD 10/31/2024 Telephone [facility] [address] [place] [address] Valerie Aguirre CMA 10/30/2024 Telephone [facility] [address] [facility] Floor 1 [place] [address] Godfrey Villarreal MD 10/18/2024 11:59 PM CDT Anesthesia Event [facility] Operating Room [address] [place] [address] Maryjo Galicia NP 10/16/2024 11:00 AM CDT Office Visit [facility] [address] [place] [address] [place], Ekaterina Ioana, SUPERVISOR CAB Low vitamin B12 level (Primary Dx); GIST (gastrointestinal stroma tumor), malignant, colon (HCC); 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) 10/16/2024 10:30 AM CDT Lab [facility] [address] [place] [address] GIST (gastrointestinal stroma tumor), malignant, colon (HCC); 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); Low vitamin B12 level 10/16/2024 8:39 AM CDT - 10/16/2024 11:59 PM CDT Hospital Encounter [facility] Advanced Medicine Imaging [address] [place] [address] Discharge Disposition: Discharge to home or self care 10/16/2024 7:18 AM CDT - 10/16/2024 11:59 PM CDT Hospital Encounter [facility] Advanced Medicine Imaging [address] [place] [address] GIST (gastrointestinal stroma tumor), malignant, colon (HCC); 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) Discharge Disposition: Discharge to home or self care 10/16/2024 Results Follow-Up [facility] [address] [place] [phone] Jose Antonio Gamble Lactate dehydrogenase (LD), Comprehensive metabolic panel, CBC with auto differential, Additional followed-up results: 3 10/14/2024 10:30 AM CDT Office Visit [facility] Surgery [address] [place] [address] Medical Office Building [address] [place] [phone] Godfrey Villarreal MD ESRD (end stage renal disease) (HCC) (Primary Dx); Encounter for surgical aftercare following surgery on the circulatory system 10/11/2024 11:00 AM CDT Ancillary Procedure [facility] Vascular Surgery [address] [place] [address] MOB 3, [address] DEB LUND [address] End stage renal disease (HCC) 10/09/2024 Orders Only [facility] [address] [place] [address] Jose Antonio Gamble 10/09/2024 Telephone [facility] [phone] [place] [address] [address] [place] [address] Matt Nicholson MD 09/20/2024 7:30 AM CDT - 09/20/2024 10:40 AM CDT Surgery [facility] Operating Room [address] [place] [address] Godfrey Villarreal MD CREATION 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 09/20/2024 7:24 AM CDT Anesthesia Event [facility] Operating Room [address] [place] [phone] Joshua Rodgers MD Gangloff, Kerry Marie, NP 09/20/2024 5:44 AM CDT - 09/20/2024 11:38 AM CDT Hospital Encounter [facility] Operating Room [address] [place] [phone] Godfrey Villarreal MD ESRD (end stage renal disease) on dialysis (HCC) (Primary Dx) Discharge Disposition: Discharge to home or self care 09/20/2024 Orders Only [facility] [address] [place] [address] Office Building [address] [place] [address] Godfrey Villarreal MD End stage renal disease (HCC) (Primary Dx) 09/19/2024 Telephone [facility] [address] [place] [address] Office Building [address] [place] [address] Godfrey Villarreal MD 08/27/2024 Telephone [facility] [address] [place] [address] Floor 1 [place] [phone] Godfrey Villarreal MD 08/26/2024 Telephone [facility] [address] [place] [address] Floor 1 [place] [address] Godfrey Villarreal MD 08/14/2024 12:00 PM CDT Office Visit [facility] [address] [place] [phone] Marcella Taylor MD GIST (gastrointestinal stroma tumor), malignant, colon (HCC) (Primary Dx); 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) 08/14/2024 11:30 AM CDT Lab [address] [address] GIST (gastrointestinal stroma tumor), malignant, colon (HCC); 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) 08/12/2024 9:45 AM CDT Office Visit [facility] Surgery [address] [place] [address] Medical Office Building 3 [address] [place] [phone] Godfrey Villarreal MD ESRD (end stage renal disease) (HCC) (Primary Dx) 08/12/2024 8:45 AM CDT Ancillary Procedure [facility] Vascular Surgery [address] [place] [address] [address], [address] [place] [address] ESRD (end stage renal disease) (HCC) 08/12/2024 Orders Only [facility] [address] [place] [phone] Jose Antonio Gamble 08/12/2024 Telephone [facility] [address] [place] [phone] Jose Antonio Gamble from Last 3 Months [...] insufficiency Dialysis Tue / Thur/ Sat in [place], [place] [facility] (HCC) Anemia Heart failure [...] on file Legal Sex Male 6:14 AM CUPOLA MELTING SUPERVISOR Gender Identity Not on file Sexual [...] NP Medical Devices Implanted Type Area Manager Building Device Identifier Shelf Expiration Date Model / Serial / Lot Stent- 8 Implanted:04/19 by [facility], Carol Esquivel MD (Quantity not on file) Stent Heart Description:1.5 or 3 Nazia N ormal Mode Scan 15 rest 5 FNZ Duraflow Embosafe 15.5fr 28cm Basic 2 Lumen Kit Catheter [id number] - [id number] Implanted:Qty: 1 on 07/12/2024 at [facility] FNZ 08/02/2026 [id number] / / [id number] Procedures Procedure Name Priority Date/Time Associated Diagnosis [...] DEVICE Routine 09/20/2024 9 :00 AM CDT NM AN PROCEDURE PLACEHOLDER Routine 09/20/2024 7:59 AM CDT NM AN ELECTIVE ENDOTRACHEAL AIRWAY Routine 09/20/2024 7:59 [...] (HCC) HEMOGLOBIN A1C Timed 07/11/2024 9:14 PM CUPOLA MELTING SUPERVISOR LIPID PANEL Routine 05/13/2024 9:16 AM CUPOLA MELTING SUPERVISOR Type 2 diabetes mellitus with stage 4 chronic kidney disease, with long-term current use of insulin (HCC) Hyperlipidemia associated with type 2 diabetes mellitus (HCC) ALBUMIN CREATININE RATIO, URINE Routine 05/13/2024 9:16 AM CUPOLA MELTING SUPERVISOR Type 2 diabetes mellitus with stage 4 [...] MD LAB BLOOD ORDERABLES Final Resul t [facility] Department [place] [address] * Differential, auto (10/16/2024 10:22 AM CDT) Neutrophil abs 5.36 1.50 - 6.50 K/cumm Comment:Testing performed by : [facility], [address] [place] [address] Imm gran abs 0.08 0.00 - 0.10 K/cumm [facility] Lymphocyte abs 1.50 0.80 - 3.30 K/cumm [facility] Monocyte abs 0.64 0.20 - 0.80 K/cumm [facility] Eosinophil abs 0.37 0.00 - 0.50 K/cumm [facility] Basophil abs 0.06 0.00 - 0.10 K/cumm [facility] Neutrophil pct 67.0 % [facility] Comment: Interpretive Data Percent cell count reference ranges are not reported, since discordance with absolute values may lead to misinterpretation of CBC data. Current Interpretive Data was last revised on 2017. Imm gran pct 1.0 % [facility] Comment: Interpretive Data Percent cell count reference ranges are not reported, since discordance with absolute values may lead to misinterpretation of CBC data. Current Interpretive Data was last revised on 2017. Lymphocyte pct 18.7 % [facility] Comment: Interpretive Data Percent cell count reference ranges are not reported, since discordance with absolute values may lead to misinterpretation of CBC data. Current Interpretive Data was last revised on 2017. Monocyte pct 8.0 % [facility] Comment: Interpretive Data Percent cell count reference ranges are not reported, since discordance with absolute values may lead to misinterpretation of CBC data. Current Interpretive Data was last revised on 2017. Eosinophil pct 4.6 % [facility] Comment: Interpretive Data Percent cell count reference ranges are not reported, since discordance with absolute values may lead to misinterpretation of CBC data. Current Interpretive Data was last revised on 2017. Basophil pct 0.7 % [facility] Comment: Interpretive Data Percent cell count reference ranges are not reported, since discordance with absolute values may lead to misinterpretation of CBC data. Current Interpretive Data was last revised on 2017. Blood 10/16/2024 10:2 2 AM CDT 10/16/2024 10:22 AM CDT us Marcella Taylor MD LAB BLOOD ORDERABLES Final Resul t [facility] Department [place] [address] * (ABNORMAL) CBC with auto differential (10/16/2024 10:22 AM CDT) WBC 8.01 3.80 - 9.90 K/cumm Comment:Testing performed by : [address] [address] Hgb 11.2(L) 13.0 - 17.5 g/dL [facility] Comment:Testing performed by : [address] [address] Hct 34.4(L) 38.9 - 50.3 % [facility] Comment:Testing performed by : [address] [address] Plt 165 150 - 400 K/cumm [facility] Comment:Testing performed by : [address] [address] MPV 10.7 9.1 - 12.3 fL [facility] RBC 3.94(L) 4.30 - 5.80 M/cumm [facility] MCV 87.3 81.3 - 96.4 fL [facility] MCH 28.4 27.1 - 33.3 pg [facility] MCHC 32.6 32.3 - 35.7 g/dL [facility] RDW CV 14.6 11.1 - 14.9 % [facility] RDW SD 46.6 35.7 - 48.1 fL [facility] NRBC abs 0.00 0.00 - 0.01 K/cumm [facility] ANC Prelim 5.36 1.50 - 6.50 K/cumm [facility] Comment: Interpretive Data The rapid ANC is a preliminary automated count and may vary from the final ANC (Neut Abs) reported in the WBC differential that follows. Current interpretive data was last revised 2024. Blood 10/16/2024 10:2 2 AM CDT 10/16/2024 10:22 AM CDT Marcella Taylor MD LAB BLOOD ORDERABLES Final Resul t Performing Organization Address [facility] de Phone Number [facility] [place] [address] * Lactate dehydrogenase (LD) (10/16/2024 10:22 AM CDT) Lactate dehydrogenase (LDH) 245 100 - 250 Units/L Comment:Testing performed by : [address] [address] Blood 10/16/2024 10:2 2 AM CDT 10/16/2024 10:22 AM CDT Marcella Taylor MD LAB BLOOD ORDERABLES Final Resul t Performing Organization Address [facility] de Phone Number [facility] [place] [address] * (ABNORMAL) Comprehensive metabolic panel (10/16/2024 10:22 AM CDT) Sodium 138 135 - 145 mmol/L Comment:Testing performed by : [address] [address] Potassium, pl 4.6 3.3 - 4.9 mmol/L [facility] Chloride 104 97 - 110 mmol/L [facility] CO2 26 22 - 32 mmol/L [facility] Anion gap 8 2 - 15 mmol/L [facility] BUN 41(H) 6 - 25 mg/dL [facility] Creatinine 5.47(H) 0.80 - 1.30 mg/dL [facility] Glucose 230(H) 70 - 199 mg/dL [facility] Comment: Interpretive Data Fasting glucose >/= 126 [...] 2022. Calcium 8.4(L) 8.5 - 10.3 mg/dL [facility] Bilirubin, total 0.8 0.1 - 1.2 mg/dL [facility] Protein, pl 6.5 6.5 - 8.5 g/dL [facility] Albumin 3.7 3.5 - 5.0 g/dL [facility] Alk phos 84 40 - 130 Units/L [facility] ALT 12 7 - 55 Units/L [facility] AST 19 10 - 50 Units/L [facility] Blood 10/16/2024 10:2 2 AM CDT 10/16/2024 10:22 AM CDT Marcella Taylor MD LAB BLOOD ORDERABLES Final Resul t Performing Organization Address City/[facility]/ZIP Co de Phone Number [facility] Department [place] [address] * Vitamin B12 (10/16/2024 10:20 AM CDT) Vitamin B12 795 230 - 1,250 pg/mL Blood 10/16/2024 10:2 0 AM CDT 10/16/2024 1:49 PM CDT Marcella Taylor MD LAB BLOOD ORDERABLES Final [facility]ul t [facility] Department [place] [address] * PET/CT FDG Skull to Thigh (10/16/2024 [...] FDG-PET/CT IMAGING DATE OF STUDY: 10/16/2024 SCANNER: [facility] RADIOPHARMACEUTICAL: 16.31 mCi F-18 Fluorodeoxyglucose [...] obtained. The study was interpreted on the mPowa workstation. The mean liver SUV (reported for quality control representative purposes) is 2.4. The total scanned area [...] FDG-PET/CT IMAGING DATE OF STUDY: 10/16/2024 SCANNER: [facility] RADIOPHARMACEUTICAL: 16.31 mCi F-18 Fluorodeoxyglucose [...] obtained. The study was interpreted on the mPowa workstation. The mean liver SUV (reported for quality control representative purposes) is 2.4. The total scanned area [...] AM CDT Narrative 10/11/2024 1:44 PM CDT [facility] - Department of Vascular Surgery, Vascular Laboratory [address] [place] [address] Dialysis Access Fistula/Graft Duplex Report Patient Name: JOSÉ LUIS GAMBLE : 1945 (79y ) Gender: M Study Date: 10/11/2024 10:49:25 AM Holistic Specialist: GONZALO Location: [facility] Order Provider: GODFREY VILLARREAL Quality: Adequate [...] Arm Diameter 0.46 cm Rt Deep Vein [place] 58.40 cm/s Rt Outflow Distal Arm Depth 0.27 cm Rt Axillary Vein PSV 58.20 cm/s Rt Outflow Mid Arm Diameter 0.38 cm Rt Subclavian Vein 26.60 cm/s Rt Outflow Mid Arm Depth 0.56 cm Rt Outflow Vein (Graft) Volume Flow Average 310 cc/min Rt Outflow Proximal Arm Diameter 0.43 cm Rt Outflow Proximal Arm Depth 0.71 cm Rt Deep Vein [place] Diameter 0.43 cm Rt Deep Vein [place] Depth 2.10 cm Rt Inflow Artery Diameter 0.53 cm Diameter/Depth Value Units Velocities Value Units FINDINGS: Performing Holistic Specialist: Jayda Dunn RVT. [place] Arterial Inflow Normal: No evidence of arterial [...] above. Electronically Signed By: Josias Cox MD [facility] [phone] 10/11/2024 1:30:12 PM CDT Procedure Note Josias Cox MD - 10/11/2024 [employer] [facility] - Department of Vascular Surgery,Vascular Laboratory [address] [place] [address] Dialysis Access Fistula/Graft Duplex Report Patient Name: JOSÉ LUIS GAMBLE : 1945 (79y ) Gender: M Study Date: 10/11/2024 10:49:25 AM Holistic Specialist: GONZALO Location: [facility] Order Provider: GODFREY VILLARREAL Quality: Adequate [...] Arm Diameter 0.46 cm Rt Deep Vein [place] 58.40cm/s Rt Outflow Distal Arm Depth 0.27 cm Rt Axillary Vein PSV 58.20 cm/s Rt Outflow Mid Arm Diameter 0.38 cm Rt Subclavian Vein 26.60 cm/s Rt Outflow Mid Arm Depth 0.56 cm Rt Outflow Vein (Graft) Volume FlowAverage 310 cc/min Rt Outflow Proximal Arm Diameter 0.43 cm Rt Outflow Proximal Arm Depth 0.71 cm Rt Deep Vein [place] Diameter 0.43 cm Rt Deep Vein [place] Depth 2.10 cm Rt Inflow Artery Diameter 0.53 cm Diameter/Depth Value Units Velocities Value Units FINDINGS: Performing Holistic Specialist: Jayda Dunn RVT. [place] Arterial Inflow Normal: No evidence of arterial [...] above. Electronically Signed By: Josias Cox MD [facility] [phone] 10/11/2024 1:30:12 PM CDT us Godfrey Villarreal MD IM US PROCEDURES Final R esult * POCT glucose (09/20/2024 9:25 AM CDT) Glucose, POC 145 70 - 199 mg/dL Blood 09/20/2024 9:25 AM CDT 09/20/2024 9:25 AM CDT Godfrey Villarreal MD LAB POCT ORDERABLES - DEV ICE Final Result Performing Organization Address [facility] de Phone Number [facility] Department [place] [address] * POCT glucose (09/20/2024 9:00 AM CDT) Glucose, POC 133 70 - 199 mg/dL Blood 09/20/2024 9:00 AM CDT 09/20/2024 9:00 AM CDT Godfrey Villarreal MD LAB POCT ORDERABLES - DEV ICE Final Result Performing Organization Address [facility] de Phone Number [facility] Department [place] [address] * NM AN ELECTIVE ENDOTRACHEAL AIRWAY, NM AN PROCEDURE PLACEHOLDER (09/20/2024 7:59 AM CDT) Narrative Caridad Hernandez CRNA - 09/20/2024 7:59 AM CDT Caridad Hernandez CRNA 09/20/2024 8:00 AM Airway Patient location: OR Urgency: elective Date/time: 09/20/2024 7:36 AM Indications for airway management: anesthesia Difficult airway: no Staff: Supervising provider: Joshua Rodgers MD Placed by: ACID WASHER OPERATOR: Caridad Hernandez CRNA Emergent airway documentation: Risks [...] K POC 3.2(L) 3.3 - 4.9 mmol/L [facility] Comment: Interpretive Data Not all point of care methods assess for hemolysis. Confirm with instrument and retest K+ if not consistent with clinical signs and symptoms. Current Interpretive Data was last revised on 2023. Glucose, POC 165 70 - 199 mg/dL [facility] Hct, POC 33.0(L) 41.4 - 51.6 % [facility] Total Hb, POC 11.0(L) 13.8 - 17.2 g/dL [facility] Blood 09/20/2024 7:05 AM CDT 09/20/2024 7:05 AM CDT Godfrey Villarreal MD LAB POCT ORDERABLES - DEV ICE Final Result [facility] Department [place] [address] * (ABNORMAL) eGFR (08/14/2024 11:18 AM CDT) [...] MD LAB BLOOD ORDERABLES Final Resul t [facility] Department [place] [address] * (ABNORMAL) Differential, auto (08/14/2024 11:18 AM CDT) Neutrophil abs 7.7(H) 1.5 - 6.5 K/cumm Comment:Testing performed by : [facility], [address] [place] [address] Imm gran abs 0.1 0.0 - 0.1 K/cumm [facility] Lymphocyte abs 2.0 0.8 - 3.3 K/cumm [facility] Monocyte abs 0.8 0.2 - 0.8 K/cumm [facility] Eosinophil abs 0.4 0.0 - 0.5 K/cumm [facility] Basophil abs 0.1 0.0 - 0.1 K/cumm [facility] Neutrophil pct 69.7 % [facility] Comment: Interpretive Data Percent cell count reference ranges are not reported, since discordance with absolute values may lead to misinterpretation of CBC data. Current Interpretive Data was last revised on 2017. Imm gran pct 0.5 % [facility] Comment: Interpretive Data Percent cell count reference ranges are not reported, since discordance with absolute values may lead to misinterpretation of CBC data. Current Interpretive Data was last revised on 2017. Lymphocyte pct 17.9 % [facility] Comment: Interpretive Data Percent cell count reference ranges are not reported, since discordance with absolute values may lead to misinterpretation of CBC data. Current Interpretive Data was last revised on 2017. Monocyte pct 7.6 % [facility] Comment: Interpretive Data Percent cell count reference ranges are not reported, since discordance with absolute values may lead to misinterpretation of CBC data. Current Interpretive Data was last revised on 2017. Eosinophil pct 3.6 % [facility] Comment: Interpretive Data Percent cell count reference ranges are not reported, since discordance with absolute values may lead to misinterpretation of CBC data. Current Interpretive Data was last revised on 2017. Basophil pct 0.7 % [facility] Comment: Interpretive Data Percent cell count reference ranges are not reported, since discordance with absolute values may lead to misinterpretation of CBC data. Current Interpretive Data was last revised on 2017. Blood 08/14/2024 11:1 8 AM CDT 08/14/2024 11:18 AM CDT us Marcella Taylor MD LAB BLOOD ORDERABLES Final Resul t [facility] Department [place] [address] * (ABNORMAL) CBC with auto differential (08/14/2024 11:18 AM CDT) WBC 11.0(H) 3.8 - 9.9 K/cumm Comment:Testing performed by : [address] [address] Hgb 10.3(L) 13.0 - 17.5 g/dL [facility] Comment:Testing performed by : [address] [address] Hct 32.1(L) 38.9 - 50.3 % [facility] Comment:Testing performed by : [address] [address] Plt 187 150 - 400 K/cumm [facility] Comment:Testing performed by : [facility], [address] [place] [address] MPV 9.6 9.1 - 12.3 fL [facility] RBC 3.88(L) 4.30 - 5.80 M/cumm [facility] MCV 82.7 81.3 - 96.4 fL [facility] MCH 26.5(L) 27.1 - 33.3 pg [facility] MCHC 32.1(L) 32.3 - 35.7 g/dL [facility] RDW CV 17.1(H) 11.1 - 14.9 % [facility] RDW SD 51.6(H) 35.7 - 48.1 fL [facility] NRBC abs 0.00 0.00 - 0.01 K/cumm [facility] Blood 08/14/2024 11:1 8 AM CDT 08/14/2024 11:18 AM CDT Marcella Taylor MD LAB BLOOD ORDERABLES Final Resul t Performing Organization Address City/[facility]/ZIP Co de Phone Number [facility] Department [place] [address] * (ABNORMAL) Lactate dehydrogenase (LD) (08/14/2024 11:18 AM CDT) Lactate dehydrogenase (LDH) 343(H) 100 - 250 Units/L Comment:Testing performed by : [facility], [address] [place] [address] Blood 08/14/2024 11:1 8 AM CDT 08/14/2024 11:18 AM CDT Marcella Taylor MD LAB BLOOD ORDERABLES Final Resul t [facility] Department [place] [address] * (ABNORMAL) Comprehensive metabolic panel (08/14/2024 11:18 AM CDT) Sodium 142 135 - 145 mmol/L Comment:Testing performed by : [facility], [address] [place] [address] Potassium, pl 4.7 3.3 - 4.9 mmol/L [facility] Chloride 107 97 - 110 mmol/L [facility] CO2 27 22 - 32 mmol/L [facility] Anion gap 8 2 - 15 mmol/L [facility] BUN 41(H) 6 - 25 mg/dL [facility] Creatinine 5.63(H) 0.80 - 1.30 mg/dL [facility] Glucose 170 70 - 199 mg/dL [facility] Comment: Interpretive Data Fasting glucose >/= 126 [...] 2022. Calcium 8.0(L) 8.5 - 10.3 mg/dL [facility] Bilirubin, total 0.5 0.1 - 1.2 mg/dL [facility] Protein, pl 6.5 6.5 - 8.5 g/dL [facility] Albumin 3.6 3.5 - 5.0 g/dL [facility] Alk phos 83 40 - 130 Units/L [facility] ALT 11 7 - 55 Units/L [facility] AST 22 10 - 50 Units/L [facility] Blood 08/14/2024 11:1 8 AM CDT 08/14/2024 11:18 AM CDT us Marcella Taylor MD LAB BLOOD ORDERABLES Final Resul t [facility] Department [place] [address] * US Vein Mapping Fistula Access, Bilateral (08/12/2024 9:16 AM CDT) Anatomical Region Laterality Modality Vascular Bilateral Ultrasound 08/12/2024 7:00 AM CDT Narrative 08/12/2024 12:47 PM CDT [facility] - Department of Vascular Surgery, Vascular Laboratory [address] [place] [address] Upper Extremity Vein Mapping Report Patient Name: JOSÉ LUIS GAMBLE : 1945 (78y 10m) Study Date: 08/12/2024 7:00:58 AM Gender: M Holistic Specialist: GONZALO Location: [facility] Provider: GODFREY VILLARREAL Quality: Adequate Order [...] Value Units Left Value Units FINDINGS: Performing Holistic Specialist: Jayda Dunn RVT. Bilateral: Venous Doppler signals [...] above. Electronically Signed By: Josias Cox MD [facility] [phone] 08/12/2024 12:46:53 PM CDT Procedure Note Josias Cox MD - 08/12/2024 [facility] - Department of Vascular Surgery,Vascular Laboratory [address] [place] [address] Upper Extremity Vein Mapping Report Patient Name: JOSÉ LUIS GAMBLE : 1945 (78y 10m) Study Date: 08/12/2024 7:00:58 AM Gender: M Holistic Specialist: GONZALO Location: [facility] Ref Provider: GODFREY VILLARREAL Quality: Adequate [...] Value Units Left Value Units FINDINGS: Performing Holistic Specialist: Jayda Dunn RVT. Bilateral: Venous Doppler signals [...] above. Electronically Signed By: Josias Cox MD [facility] [phone] 08/12/2024 12:46:53 PM CDT us Godfrey Villarreal MD IM US PROCEDURES Final R esult * (ABNORMAL) Hemoglobin A1c (07/11/2024 9:14 PM CUPOLA MELTING SUPERVISOR) Hgb A1C 6.3(H) 4.0 - 5.6 % Estimated Average Glucose 134 mg/dL [facility] Comment: The ADA recommends reporting an estimated Average Glucose (eAG) with all Hemoglobin A1c results using the equation derived from a study of 507 normal and diabetic adults. Minority populations were underrepresented and children were not included. (Diabetes Care 2020; 43(S1): S66-S76). The eAG is not equivalent to a fasting glucose. Blood 07/11/2024 9:14 PM CUPOLA MELTING SUPERVISOR 07/11/2024 9:39 PM CUPOLA MELTING SUPERVISOR Narrative [facility] - 07/12/2024 8:23 AM CUPOLA MELTING SUPERVISOR Reflex us Rex Reid MD LAB BLOOD ORDERABLES Final Resul t Performing Organization Address City/[facility]/ZIP Co de Phone Number [facility] Department [place] [address] * (ABNORMAL) Albumin Creatinine Ratio, Urine (05/13/2024 9:16 AM CUPOLA MELTING SUPERVISOR) Albumin Ur 3,688.8 mg/L Comment: Interpretive Data No reference range established. Current interpretive data was last revised 2018. Creatinine Ur 59.2 mg/dL [facility] Comment: Interpretive Data No reference range established. Current interpretive data was last revised 2018. Albumin Creatinine Ratio, Ur 6,231(H) 1 - 29 mg/g [facility] Urine 05/13/2024 9:16 AM CUPOLA MELTING SUPERVISOR 05/13/2024 2:55 PM CUPOLA MELTING SUPERVISOR us Matt Kendrick MD LAB URINE ORDERABLE S Final Result [facility] [address] Department [place] [address] * (ABNORMAL) Lipid panel (05/13/2024 9:16 AM CUPOLA MELTING SUPERVISOR) Cholesterol 128 30 - 199 mg/dL Comment: [...] 3 [facility] Blood 05/13/2024 9:16 AM CUPOLA MELTING SUPERVISOR 05/13/2024 2:55 PM CUPOLA MELTING SUPERVISOR us Matt Kendrick MD LAB BLOOD ORDERABLE S Final Result [facility] [address] [place] [address] * CT abdomen pelvis without contrast (12/14/2023 [...] Lenny Redd M.D., Ph.D Marcella Taylor MD [facility] [place]EDURES Final Result * DIABETES EYE EXAM (06/15/2023) 06/15/2023 us Historical Provider HEALTH MAINTENANCE Edited Result - Final from Last 3 Months or Most Recently Relevant to Health Maintenance Additional Health Concerns Active Problems Noted Date Diagnosed Date Autogenerated Problem 10/29/2024 Insurance MEDICARE [place] [id number] [facility] SUPPLEMENT MEDICARE [place] [id number] [facility] & [facility] SUPPLEMENT MEDICARE COMMERCIAL GENERIC Advance Directives For more information, please contact: [phone] * Full Code (Latest Code Status on [...] 1:19 PM 07/30/2020 4:54 AM Care Teams Head And Neck Surgeon Relationship Specialty [place] [address] [address] [address] PCP - General Family Practice 04/26/22 Marcella Taylor MD [address] [place] [address] [address] [place] [address] Medical Oncologist/Box Icer Medical Oncology 08/08/20 Godfrey Villarreal MD [address] [facility] [address] [place] [address] Surgeon Vascular Surgery 09/20/24
--- OUTSIDE RECORDS SUMMARY | 2024-11-10 11:52 | XMS_ITS | Continuity of Care Document ---
Author Organization [facility] Address [address] [place] [address] [address] [place] [address] Phone Care Team Providers Care Rap Artist Name Role Phone Bianca Moran Unavailable Advance Directives Directive Yes / No Effective Date File Name No Information Encounters Encounter Description Practice Location Reason(s) For Visit Diagnoses Date Provider Providers Copied on Encounter [facility], [address], [place], [place], [id number], [place] tel:[phone] [facility] No Information Jul-0 [address]. [address] , [address], [place], [address], [place]. tel:[phone] Family History Family Member Type Diagnosis Age At Onset No Information Payers Payer name Insurance type Covered republican ID Authoriza tion(s) [employer] SOI CI [id number] Social History Type Description Quantity Date Captured [...]
--- OUTSIDE RECORDS SUMMARY | 2024-11-10 11:52 | XMS_ITS | Encounter Summary ---
Author Organization [facility] Address [address] [place] [address] Phone Care Team Providers Care Men'S Swim Coach Name Role Phone Gerard Mo MD Primary Care Provider [phone] Marcella Taylor MD Unavailable Anselmo Sampson MD Primary Care Provider + [phone] Godfrey Villarreal MD Unavailable [phone] Encounter Details Date Type Department Care Team [...] on file Legal Sex Male 6:14 AM CITY MAINTENANCE MANAGER Gender Identity Not on file Sexual [...] COVID: Suspected 07/09/2024 07/09/2024 07/09/2024 11:36 AM CITY MAINTENANCE MANAGER COVID: Suspected 07/09/2024 07/09/2024 07/09/2024 4:05 PM CITY MAINTENANCE MANAGER documented as of this encounter Care Teams Men'S Swim Coach Relationship Specialty Start Date End Date Gerard Mo MD PCP - General 11/01/17 04/25/22 [place] [address] [address] PCP - General Family Practice 04/26/22 Marcella Taylor MD [address] [place] [address] [address] [place] [address] Medical Oncologist/Silk Screen Painter Medical Oncology 08/08/20 Godfrey Villarreal MD [address] [facility] 8108[address]10-06 [place] [address] Surgeon Vascular Surgery 09/20/24 documented as of this encounter
--- OUTSIDE RECORDS SUMMARY | 2024-11-10 11:52 | XMS_ITS | Clinical Summary ---
Author Organization [facility] Address [address], [facility] [address] [place] [address] Phone Care Team Providers Care Dry Lumber Grader Name Role Phone Gerard Mo Primary Care Provider [phone] Allergies No known active allergies Medications citalopram [...] mouth 3 times daily as needed. Active Sugarloaf-3 Fatty Acids (FISH OIL PO) Take by [...] on file Legal Sex Male 2:48 PM BAKER BISCUIT Gender Identity Not on file Sexual Orientation Not on file Last Filed Vital Signs Vital Sign Reading Time Taken Comments Blood Pressure 132/82 07/07/2016 2:43 PM BAKER BISCUIT Pulse 73 07/07/2016 2:43 PM BAKER BISCUIT Temperature 37 C (98.6 F) 07/07/2016 2:43 PM BAKER BISCUIT Respiratory Rate - - Oxygen Saturation 97% 07/07/2016 2:43 PM BAKER BISCUIT Inhaled Oxygen Concentration - - Weight 101.6 kg (224 lb) 07/07/2016 2:43 PM BAKER BISCUIT Height 175.3 cm (5' 9) 07/07/2016 2:43 PM BAKER BISCUIT Body Mass Index 33.08 07/07/2016 2:43 PM BAKER BISCUIT Plan of Treatment Health Maintenance Due Date [...] topic Insurance MEDICARE COMMERCIAL GENERIC Care Teams Dry Lumber Grader Relationship Specialty Start Date End Date Gerard Mo [address] [place] [address] PCP - General Family Medicine 07/04/16
--- OUTSIDE RECORDS SUMMARY | 2024-11-10 11:52 | XMS_ITS ---
Author Organization [facility] Address [address] [place] [address] Care Team Providers Care Market Research Associate Name Role Phone Marcella Taylor MD Unavailable Anselmo Sampson MD Primary Care Provider [phone] Godfrey Villarreal MD Unavailable [phone] Active Problems Problem Noted Date Diagnosed Date End stage renal disease on dialysis 10/14/2024 ESRD (end stage renal disease) on dialysis 08/27 ESRD (end stage renal disease) 07/11/2024 Assessment & Plan (07/14/2024 9:38 AM POWER WHEELCHAIR MECHANIC): Patient has had progression of CKD to now ESRD needing dialysis initiation given c/f uremia symptoms. Directly admitted per renal. Underwent tunneled dialysis catheter by IR on 07/12 and received HD on 07/12 and 07/13 -Hemodialysis as per Nephrology -Continue home bicarb URI (upper respiratory infection) 07/11/2024 Assessment & Plan (07/12/2024 12:59 PM POWER WHEELCHAIR MECHANIC): Suspected viral. COVID/flu/RSV neg 07/09. CXR neg 07/10. Was prescribed azithromycin on 07/09 which he took for 3 days. Will not continued further -Supportive care Hypomagnesemia 01/02/2024 CKD (chronic kidney disease) stage 4, GFR 15-29 ml/min 04/16/2023 Assessment & Plan (07/25/2023 10:06 AM POWER WHEELCHAIR MECHANIC): Chronic problem. Managed by Dr Flores. Has f/u appt at end of the month. Assessment & Plan (04/16/2023 8:48 PM POWER WHEELCHAIR MECHANIC): Chronic, stable Following with Clinical Rehabilitation Liaison Acute kidney injury 02/24/2023 (HFpEF) heart failure with preserved ejection fr action 02/24/2023 Assessment & Plan (02/24/2023 3:38 PM CDT): TTE with EF 77% and at least grade 1 diastolic dysfunction (indeterminate on last TTE). Not in exacerbation -Cont home lasix 40mg -strict I&Os, daily weights -F/u with OSH Janitor And Cleaner Dr. Payton CAD (coronary artery disease) 02/24/2023 Assessment & Plan (02/24/2023 3:38 PM CDT): S/p prior 5v CABG in 2012 -Cont statin and coreg -Intolerant of PATI-I/ARB due to worsening renal function -ASA held due to procedure -F/u with Cardiology outpatient Hyperlipidemia associated with type 2 diabetes aimee ulloa 02/24/2023 Assessment & Plan (07/11/2024 9:32 PM POWER WHEELCHAIR MECHANIC): -Continue home welchol -Atorvastatin for home pitavastatin (non-formulary) Assessment & Plan (05/13/2024 9:10 AM POWER WHEELCHAIR MECHANIC): Continue statin therapy Assessment & Plan (11/16/2023 11:18 AM CDT): Chronic problem. Currently taking Pitavatatin 4mg daily. Last lipid panel: 02/24/23 LDL=76, PF=324. Assessment & Plan (07/25/2023 10:22 AM POWER WHEELCHAIR MECHANIC): Chronic problem. Currently taking Pitavatatin 4mg daily. Last lipid panel: 02/24/23 LDL=76, OX=754. Assessment & Plan (04/16/2023 8:46 PM POWER WHEELCHAIR MECHANIC): On Pitavastatin therapy Tolerating well Assessment & Plan (02/24/2023 3:39 PM CDT): Cont statin and colesevelam Type 2 diabetes mellitus wit h stage 4 chronic kidney disease, with long-term current use of insulin 02/24/2023 Assessment & Plan (07/11/2024 9:31 PM POWER WHEELCHAIR MECHANIC): F/b endo. Home regimen: tresiba 5U QHS, aspart 6-8U TID with meals Pt/ report issues with hypoglycemia lately at home. -Will start with SSI for now; titrate/add scheduled insulin pending glucose trends Assessment & Plan (05/13/2024 9:10 AM POWER WHEELCHAIR MECHANIC): Chronic, uncontrolled, worsening Hemoglobin A1c 6.8 A1c [...] soon Daily foot care Advise to call [employer]. and get the dexcom G 6 sensor to switch to G7 Check labs today Follow-up in 6 months Assessment & Plan (11/16/2023 11:17 AM CDT): Chronic problem. A1c stable at 6.1% but having overnight lows & occasionally lows after LN. Call your supply [facility] to switch from Dexcom G6 to Dexcom G7. Lower tresiba to 6 units nightly. If you notice that your over night readings are too high--start to increase by 1 unit weekly until they return to normal. If you're eating a trailer sections assembler lunch--drop the Fiasp to 6 units. Current medications: Tresiba 6 units at bedtime Fiasp 4 units with breakfast & dinner, 8 units with lunch (6 units if trailer sections assembler lunch) If blood sugar is between 151-200, add 1 units. If blood sugar is between 201-250, add 2 units. If blood sugar is between 251-300, add 3 units. If blood sugar is between 301-350, add 4 units. UTD on DM eye exam (06/15/23 at [facility]). UTD on labs. Discussed with [...] Assessment & Plan (07/25/2023 10:02 AM POWER WHEELCHAIR MECHANIC): Chronic problem. A1c stable at 6.1% but having overnight lows & occasionally lows after LN. Call your supply company to switch from Dexcom G6 to Dexcom G7. Lower tresiba to 6 units nightly. If you notice that your over night readings are too high--start to increase by 1 unit weekly until they return to normal. If you're eating a trailer sections assembler lunch--drop the Fiasp to 6 units. Current medications: Tresiba 6 units at bedtime Fiasp 4 units with breakfast & dinner, 8 units with lunch (6 units if trailer sections assembler lunch) If blood sugar is between 151-200, add 1 units. If blood sugar is between 201-250, add 2 units. If blood sugar is between 251-300, add 3 units. If blood sugar is between 301-350, add 4 units. DM eye exam 06/2023 at [facility]. Letter sent to get copy [...] Assessment & Plan (04/16/2023 8:47 PM POWER WHEELCHAIR MECHANIC): Chronic , improving overall hyperglycemia but now [...] TID +SSI; adjust PRN -F/u with OSH marketing strategy lead Proteinuria 02/24/2023 Assessment & Plan (02/25/2023 7:46 [...] Assessment & Plan (07/12/2024 12:57 PM POWER WHEELCHAIR MECHANIC): Getting aranesp outpatient -Trend CBC -Transfuse PRN [...] Assessment & Plan (07/11/2024 9:30 PM POWER WHEELCHAIR MECHANIC): -Continue home amlodipine, hydralazine, coreg Assessment & Plan (05/13/2024 9:11 AM POWER WHEELCHAIR MECHANIC): Chronic, fairly controlled for pt age Continue amlodipine Managed by nephrology Assessment & Plan (11/16/2023 11:18 AM CDT): Chronic problem. Controlled on current Carvedilol 25mg bid, amlodipine 10mg daily, lasix 20mg daily. not taking hydralazine currently Assessment & Plan (07/25/2023 10:05 AM POWER WHEELCHAIR MECHANIC): Chronic problem. Controlled on current Carvedilol 25mg bid, amlodipine 10mg daily, lasix 20mg daily. 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
--- OUTSIDE RECORDS SUMMARY | 2024-11-10 11:52 | XMS_ITS | Encounter Summary ---
Author Organization [facility] Address [address] [facility] [place] [address] Phone Care Team Providers Care Plastic Extruding Machine Operator Name Role Phone Marcella Taylor MD Unavailable Anselmo Sampson MD Primary Care Provider [phone] Godfrey Villarreal MD Unavailable [phone] Encounter Details Date Type Department Care Team [...] on file Legal Sex Male 6:14 AM LIGHT EQUIPMENT OPERATOR Gender Identity Not on file Sexual [...] COVID: Suspected 07/09/2024 07/09/2024 07/09/2024 11:36 AM LIGHT EQUIPMENT OPERATOR COVID: Suspected 07/09/2024 07/09/2024 07/09/2024 4:05 PM LIGHT EQUIPMENT OPERATOR documented as of this encounter Care Teams Plastic Extruding Machine Operator Relationship Specialty [place] [address] [address] PCP - General Family Practice 04/26/22 Marcella Taylor MD [address] [place] [address] [address] [place] [address] Medical Oncologist/Meat Stringer Medical Oncology 08/08/20 Godfrey Villarreal MD [address] [facility] [address] [place] [address] Surgeon Vascular Surgery 09/20/24 documented as of this encounter
--- OUTSIDE RECORDS SUMMARY | 2024-11-10 11:52 | XMS_ITS | Encounter Summary ---
Author Organization [facility] Address [address] [place] [address] Phone Care Team Providers Care Saw Handle Assembler Name Role Phone Marcella Taylor MD Unavailable Anselmo Sampson MD Primary Care Provider [phone] Godfrey Villarreal MD Unavailable [phone] Encounter Details Date Type Department Care Team [...] file Legal Sex Male 6:14 AM SENIOR ENVIRONMENTAL TECHNICIAN Gender Identity Not on file Sexual Orientation [...] Suspected 07/09/2024 07/09/2024 07/09/2024 11:36 AM SENIOR ENVIRONMENTAL TECHNICIAN COVID: Suspected 07/09/2024 07/09/2024 07/09/2024 4:05 PM SENIOR ENVIRONMENTAL TECHNICIAN documented as of this encounter Care Teams Saw Handle Assembler Relationship Specialty [place] [address] [address] PCP - General Family Practice 04/26/22 Marcella Taylor MD [address] [place] [address] [address] [place] [address] Medical Oncologist/Modern And Contemporary Art Curator Medical Oncology 08/08/20 Godfrey Villarreal MD [address] [facility] [address] [place] [address] Surgeon Vascular Surgery 09/20/24 documented as of this encounter
--- OUTSIDE RECORDS SUMMARY | 2024-11-10 11:52 | XMS_ITS ---
Author Organization [facility] Address [address] [place] [address] Care Team Providers Care Enrollment Advisor Name Role Phone Marcella Taylor MD Unavailable Anselmo Sampson MD Primary Care Provider [phone] Godfrey Villarreal MD Unavailable [phone] Dialysis Access Sites Type Status Location Placement [...] DEVICE Routine 09/20/2024 9 :00 AM CDT MS AN PROCEDURE PLACEHOLDER Routine 09/20/2024 7:59 AM CDT MS AN ELECTIVE ENDOTRACHEAL AIRWAY Routine 09/20/2024 7:59 [...] (HCC) HEMOGLOBIN A1C Timed 07/11/2024 9:14 PM THERAPY TECH LIPID PANEL Routine 05/13/2024 9:16 AM THERAPY TECH Type 2 diabetes mellitus with stage 4 chronic kidney disease, with long-term current use of insulin (HCC) Hyperlipidemia associated with type 2 diabetes mellitus (HCC) ALBUMIN CREATININE RATIO, URINE Routine 05/13/2024 9:16 AM THERAPY TECH Type 2 diabetes mellitus with stage 4 [...] (two) times a day with meals Active bznxtil-xrhvucjpm-d inc 333-133-5 mg tabletIndications:V itamin Deficiency Prevention [...] 1 tablet (4 mg total) by mouth [employer] before breakfast 2023 Active cyanocobalamin (Vitamin B-12) [...] 07/11/2024 Assessment & Plan (07/14/2024 9:38 AM THERAPY TECH): Patient has had progression of CKD to now ESRD needing dialysis initiation given c/f uremia symptoms. Directly admitted per renal. Underwent tunneled dialysis catheter by IR on 07/12 and received HD on 07/12 and 07/13 -Hemodialysis as per Nephrology -Continue home bicarb URI (upper respiratory infection) 07/11/2024 Assessment & Plan (07/12/2024 12:59 PM THERAPY TECH): Suspected viral. COVID/flu/RSV neg 07/09. CXR neg 07/10. Was prescribed azithromycin on 07/09 which he took for 3 days. Will not continued further -Supportive care Hypomagnesemia 01/02/2024 CKD (chronic kidney disease) stage 4, GFR 15-29 ml/min 04/16/2023 Assessment & Plan (07/25/2023 10:06 AM THERAPY TECH): Chronic problem. Managed by Dr Flores. Has f/u appt at end of the month. Assessment & Plan (04/16/2023 8:48 PM THERAPY TECH): Chronic, stable Following with Outpatient Physical Therapist Assistant Acute kidney injury 02/24/2023 (HFpEF) heart failure with preserved ejection fr action 02/24/2023 Assessment & Plan (02/24/2023 3:38 PM CDT): TTE with EF 77% and at least grade 1 diastolic dysfunction (indeterminate on last TTE). Not in exacerbation -Cont home lasix 40mg -strict I&Os, daily weights -F/u with OSH Photo Mask Processor Dr. Payton CAD (coronary artery disease) 02/24/2023 Assessment & Plan (02/24/2023 3:38 PM CDT): S/p prior 5v CABG in 2013 -Cont statin and coreg -Intolerant of PATI-I/ARB due to worsening renal function -ASA held due to procedure -F/u with Cardiology outpatient Hyperlipidemia associated with type 2 diabetes aimee ulloa 02/24/2023 Assessment & Plan (07/11/2024 9:32 PM THERAPY TECH): -Continue home welchol -Atorvastatin for home pitavastatin (non-formulary) Assessment & Plan (05/13/2024 9:10 AM THERAPY TECH): Continue statin therapy Assessment & Plan (11/16/2023 11:18 AM CDT): Chronic problem. Currently taking Pitavatatin 4mg daily. Last lipid panel: 02/24/23 LDL=76, SF=681. Assessment & Plan (07/25/2023 10:22 AM THERAPY TECH): Chronic problem. Currently taking Pitavatatin 4mg daily. Last lipid panel: 02/24/23 LDL=76, RI=805. Assessment & Plan (04/16/2023 8:46 PM THERAPY TECH): On Pitavastatin therapy Tolerating well Assessment & Plan (02/24/2023 3:39 PM CDT): Cont statin and colesevelam Type 2 diabetes mellitus wit h stage 4 chronic kidney disease, with long-term current use of insulin 02/24/2023 Assessment & Plan (07/11/2024 9:31 PM THERAPY TECH): F/b endo. Home regimen: tresiba 5U QHS, aspart 6-8U TID with meals Pt/ report issues with hypoglycemia lately at home. -Will start with SSI for now; titrate/add scheduled insulin pending glucose trends Assessment & Plan (05/13/2024 9:10 AM THERAPY TECH): Chronic, uncontrolled, worsening Hemoglobin A1c 6.8 A1c [...] soon Daily foot care Advise to call [email or web address] and get the dexcom G 6 sensor [...] return to normal. If you're eating a supervisor mold cleaning and storage lunch--drop the Fiasp to 6 units. Current medications: Tresiba 6 units at bedtime Fiasp 4 units with breakfast & dinner, 8 units with lunch (6 units if supervisor mold cleaning and storage lunch) If blood sugar is between 151-200, add 1 units. If blood sugar is between 201-250, add 2 units. If blood sugar is between 251-300, add 3 units. If blood sugar is between 301-350, add 4 units. UTD on DM eye exam (06/15/23 at [facility]). [...] infection. Assessment & Plan (07/25/2023 10:02 AM THERAPY TECH): Chronic problem. A1c stable at 6.1% but having overnight lows & occasionally lows after LN. Call your supply company to switch from Dexcom G6 to Dexcom G7. Lower tresiba to 6 units nightly. If you notice that your over night readings are too high--start to increase by 1 unit weekly until they return to normal. If you're eating a supervisor mold cleaning and storage lunch--drop the Fiasp to 6 units. Current medications: Tresiba 6 units at bedtime Fiasp 4 units with breakfast & dinner, 8 units with lunch (6 units if supervisor mold cleaning and storage lunch) If blood sugar is between 151-200, add 1 units. If blood sugar is between 201-250, add 2 units. If blood sugar is between 251-300, add 3 units. If blood sugar is between 301-350, add 4 units. DM eye exam 06/2023 at [facility]. Letter sent to get copy of [...] infection. Assessment & Plan (04/16/2023 8:47 PM THERAPY TECH): Chronic , improving overall hyperglycemia but now [...] TID +SSI; adjust PRN -F/u with OS furnace liner Proteinuria 02/24/2023 Assessment & Plan (02/25/2023 7:46 [...] 11/04/2021 Assessment & Plan (07/12/2024 12:57 PM THERAPY TECH): Getting aranesp outpatient -Trend CBC -Transfuse PRN [...] 11/04/2021 Assessment & Plan (07/11/2024 9:30 PM THERAPY TECH): -Continue home amlodipine, hydralazine, coreg Assessment & Plan (05/13/2024 9:11 AM THERAPY TECH): Chronic, fairly controlled for pt age Continue amlodipine Managed by nephrology Assessment & Plan (11/16/2023 11:18 AM CDT): Chronic problem. Controlled on current Carvedilol 25mg bid, amlodipine 10mg daily, lasix 20mg daily. not taking hydralazine currently Assessment & Plan (07/25/2023 10:05 AM THERAPY TECH): Chronic problem. Controlled on current Carvedilol 25mg bid, amlodipine 10mg daily, lasix 20mg daily. 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.] on 2017. Monocyte pct 8.0 % [facility] Comment: Interpretive Data Percent cell count reference ranges are not reported, since discordance with absolute values may lead to misinterpretation of CBC data. Current Interpretive Data was last revised on 2017. Eosinophil pct 4.6 % [facility] Comment: Interpretive Data Percent cell count reference ranges are not reported, since discordance with absolute values may lead to misinterpretation of CBC data. Current Interpretive Data was last revised on 2017. Basophil pct 0.7 % [facility] Comment: Interpretive Data Percent cell count reference ranges are not reported, since discordance with absolute values may lead to misinterpretation of CBC data. Current Interpretive Data was last revised on 2017. Blood 10/16/2024 10:2 2 AM CDT 10/16/2024 10:22 AM CDT us Marcella Taylor MD LAB BLOOD ORDERABLES Final Resul t [facility] [place] [address] * (ABNORMAL) CBC with auto differential (10/16/2024 10:22 AM CDT) WBC 8.01 3.80 - 9.90 K/cumm Comment:Testing performed by : [address] [address] Hgb 11.2(L) 13.0 - 17.5 g/dL [facility] Comment:Testing performed by : [address] [address] Hct 34.4(L) 38.9 - 50.3 % [facility] Comment:Testing performed by : [address] [address] Plt 165 150 - 400 K/cumm [facility] Comment:Testing performed by : [address] [address] MPV 10.7 9.1 - 12.3 fL [facility] RBC 3.94(L) 4.30 - 5.80 M/cumm [facility] [...] ORDERABLES Final Resul t Performing Organization Address City/[facility] de Phone Number [facility] Department [place] [address] * Lactate dehydrogenase (LD) (10/16/2024 10:22 AM CDT) Lactate dehydrogenase (LDH) 245 100 - 250 Units/L Comment:Testing performed by : [address] [address] Blood 10/16/2024 10:2 2 AM CDT 10/16/2024 10:22 AM CDT Marcella Taylor MD LAB BLOOD ORDERABLES Final Resul t Performing Organization Address City/[facility]/ZIP Co de Phone Number [facility] [place] [place] [address] * (ABNORMAL) Comprehensive metabolic panel (10/16/2024 10:22 AM CDT) Sodium 138 135 - 145 mmol/L Comment:Testing performed by : [facility], [address] [facility] [address] Potassium, pl 4.6 3.3 - 4.9 mmol/L [facility] Chloride 104 97 - 110 mmol/L [facility] CO2 26 22 - 32 mmol/L [facility] Anion gap 8 2 - 15 mmol/L [facility] BUN 41(H) 6 - 25 mg/dL [facility] Creatinine 5.47(H) 0.80 - 1.30 mg/dL [facility] Glucose 230(H) 70 - 199 mg/dL [facility] [...] Resul t [facility] [place] [address] * Vitamin B12 (10/16/2024 10:20 AM CDT) Vitamin B12 795 230 - 1,250 pg/mL Blood 10/16/2024 10:2 0 AM CDT 10/16/2024 1:49 PM CDT us Marcella Taylor MD LAB BLOOD ORDERABLES Final Resul t [facility] Department [place] [address] * PET/CT FDG Skull to Thigh (10/16/2024 [...] obtained. The study was interpreted on the Mlog workstation. The mean liver SUV (reported for cloth tester quality purposes) is 2.4. The total scanned area [...] obtained. The study was interpreted on the Mlog workstation. The mean liver SUV (reported for cloth tester quality purposes) is 2.4. The total scanned area [...] AM CDT Narrative 10/11/2024 1:44 PM CDT [facility] - Department of Vascular Surgery, Vascular Laboratory [address] [place] [address] Dialysis Access Fistula/Graft Duplex Report Patient Name: JOSÉ LUIS GAMBLE : 1945 (79y ) Gender: M Study Date: 10/11/2024 10:49:25 AM Software Reliability Engineer: GONZALO Location: [facility] Order Provider: GODFREY [...] Arm Diameter 0.46 cm Rt Deep Vein [place] 58.40 cm/s Rt Outflow Distal Arm Depth 0.27 cm Rt Axillary Vein PSV 58.20 cm/s Rt Outflow Mid Arm Diameter 0.38 cm Rt Subclavian Vein 26.60 cm/s Rt Outflow Mid Arm Depth 0.56 cm Rt Outflow Vein (Graft) Volume Flow Average 310 cc/min Rt Outflow Proximal Arm Diameter 0.43 cm Rt Outflow Proximal Arm Depth 0.71 cm Rt Deep Vein [place] Diameter 0.43 cm Rt Deep Vein [place] Depth 2.10 cm Rt Inflow Artery Diameter 0.53 cm Diameter/Depth Value Units Velocities Value Units FINDINGS: Performing Software Reliability Engineer: Jayda Dunn RVT. [employer] [place] Arterial Inflow Normal: No evidence of arterial [...] Electronically Signed By: Josias Cox MD [facility] [phone] 10/11/2024 1:30:12 PM CDT Procedure Note Josias Cox MD - 10/11/2024 [facility] - Department of Vascular Surgery,Vascular Laboratory [address] [place] [address] Dialysis Access Fistula/Graft Duplex Report Patient Name: JOSÉ LUIS GAMBLE : 1945 (79y ) Gender: M Study Date: 10/11/2024 10:49:25 AM Software Reliability Engineer: GONZALO Location: [facility] Order Provider: GODFREY [...] Arm Diameter 0.46 cm Rt Deep Vein [place] 58.40cm/s Rt Outflow Distal Arm Depth 0.27 cm Rt Axillary Vein PSV 58.20 cm/s Rt Outflow Mid Arm Diameter 0.38 cm Rt Subclavian Vein 26.60 cm/s Rt Outflow Mid Arm Depth 0.56 cm Rt Outflow Vein (Graft) Volume FlowAverage 310 cc/min Rt Outflow Proximal Arm Diameter 0.43 cm Rt Outflow Proximal Arm Depth 0.71 cm Rt Deep Vein [place] Diameter 0.43 cm Rt Deep Vein [place] Depth 2.10 cm Rt Inflow Artery Diameter 0.53 cm Diameter/Depth Value Units Velocities Value Units FINDINGS: Performing Software Reliability Engineer: Jayda Dunn RVT. [employer] Arterial Inflow Normal: No evidence of arterial [...] Electronically Signed By: Josias Cox MD [facility] [phone] 10/11/2024 1:30:12 PM CDT Godfrey Villarreal MD IMG US PROCEDURES Final R esult * POCT glucose (09/20/2024 9:25 AM CDT) Glucose, POC 145 70 - 199 mg/dL Blood 09/20/2024 9:25 AM CDT 09/20/2024 9:25 AM CDT Godfrey Villarreal MD LAB POCT ORDERABLES - DEV ICE Final Result Performing Organization Address [facility] Co de Phone Number [facility] Department [place] [address] * POCT glucose (09/20/2024 9:00 AM CDT) Glucose, POC 133 70 - 199 mg/dL Blood 09/20/2024 9:00 AM CDT 09/20/2024 9:00 AM CDT Godfrey Villarreal MD LAB POCT ORDERABLES - DEV ICE Final Result Performing Organization Address [facility] de Phone Number [facility] Department [place] [address] * MS AN ELECTIVE ENDOTRACHEAL AIRWAY, MS AN PROCEDURE PLACEHOLDER (09/20/2024 7:59 AM CDT) Narrative Caridad Hernandez CRNA - 09/20/2024 7:59 AM CDT Caridad Hernandez CRNA 09/20/2024 8:00 AM Airway Patient location: OR Urgency: elective Date/time: 09/20/2024 7:36 AM Indications for airway management: anesthesia Difficult airway: no Staff: Supervising provider: Joshua Rodgers MD Placed by: WELFARE CASE WORKER: Caridad Hernandez CRNA Emergent airway documentation: Risks [...] Final Result [facility] Department [place] [address] * (ABNORMAL) eGFR (08/14/2024 11:18 AM CDT) Pathologist [facility] eGFR 10(L) >=60 mL/min/1. 73 m2 [...] Resul t [facility] [place] [address] * (ABNORMAL) Differential, auto (08/14/2024 11:18 AM CDT) Pathologist [facility] Neutrophil abs 7.7(H) 1.5 - 6.5 K/cumm Comment:Testing performed by : [facility], [address] [place] [address] Imm gran abs 0.1 0.0 - 0.1 K/cumm [facility] Lymphocyte abs 2.0 0.8 - 3.3 K/cumm [facility] Monocyte abs 0.8 0.2 - 0.8 K/cumm [facility] Eosinophil abs 0.4 0.0 - 0.5 K/cumm [facility] Basophil abs 0.1 0.0 - 0.1 K/cumm [facility] Neutrophil pct 69.7 % [facility] Comment: Interpretive Data Percent cell count reference ranges are not reported, since discordance with absolute values may lead to misinterpretation of CBC data. Current Interpretive Data was last revised on 2017. Imm gran pct 0.5 % [facility] Comment: Interpretive Data Percent cell count reference ranges are not reported, since discordance with absolute values may lead to misinterpretation of CBC data. Current Interpretive Data was last revised on 2017. Lymphocyte pct 17.9 % [facility] Comment: Interpretive Data Percent cell count reference ranges are not reported, since discordance with absolute values may lead to misinterpretation of CBC data. Current Interpretive Data was last revised on 2017. Monocyte pct 7.6 % [facility] Comment: Interpretive Data Percent cell [...] Resul t [facility] Department [place] [address] * (ABNORMAL) CBC with auto differential (08/14/2024 11:18 AM CDT) WBC 11.0(H) 3.8 - 9.9 K/cumm Comment:Testing performed by : [address] [address] Hgb 10.3(L) 13.0 - 17.5 g/dL [facility] Comment:Testing performed by : [address] [address] Hct 32.1(L) 38.9 - 50.3 % [facility] Comment:Testing performed by : [address] [address] Plt 187 150 - 400 K/cumm [facility] Comment:Testing performed by : [address] [address] MPV 9.6 9.1 - 12.3 fL [facility] [...] Resul t [facility] [place] [address] * (ABNORMAL) Lactate dehydrogenase (LD) (08/14/2024 11:18 AM CDT) Lactate dehydrogenase (LDH) 343(H) 100 - 250 Units/L Comment:Testing performed by : [address] [address] Blood 08/14/2024 11:1 8 AM CDT 08/14/2024 11:18 AM CDT us Marcella Taylor MD LAB BLOOD ORDERABLES Final Resul t [facility] Department [place] [address] * (ABNORMAL) Comprehensive metabolic panel (08/14/2024 11:18 AM CDT) Pathologist [facility] Sodium 142 135 - 145 mmol/L Comment:Testing performed by : [facility], [address] [place] [address] Potassium, pl 4.7 3.3 - 4.9 mmol/L [...] phos 83 40 - 130 Units/L [facility] ALT 11 7 - 55 Units/L [facility] AST 22 10 - 50 Units/L [facility] Blood 08/14/2024 11:1 8 AM CDT 08/14/2024 11:18 AM CDT us Marcella Taylor MD LAB BLOOD ORDERABLES Final Resul t [facility] Department of Laboratories [place] [id number] * US Vein Mapping Fistula Access, Bilateral (08/12/2024 9:16 AM CDT) Anatomical Region Laterality Modality Vascular Bilateral Ultrasound 08/12/2024 7:00 AM CDT Narrative 08/12/2024 12:47 PM CDT [facility] - Department of Vascular Surgery, Vascular Laboratory [address] [place] [address] Upper Extremity Vein Mapping Report Patient Name: JOSÉ LUIS GAMBLE : 1945 (78y 10m) Study Date: 08/12/2024 7:00:58 AM Gender: M Software Reliability Engineer: GONZALO Location: [facility] Provider: GODFREY VILLARREAL Quality: Adequate Order Provider: [...] Value Units Left Value Units FINDINGS: Performing Software Reliability Engineer: Jayda Dunn RVT. Bilateral: Venous Doppler signals [...] Electronically Signed By: Josias Cox MD [facility] [phone] 08/12/2024 12:46:53 PM CDT Procedure Note Josias Cox MD - 08/12/2024 [facility] - Department of Vascular Surgery,Vascular Laboratory [address] [place] [address] Upper Extremity Vein Mapping Report Patient Name: JOSÉ LUIS GAMBLE : 1945 (78y 10m) Study Date: 08/12/2024 7:00:58 AM Gender: M Software Reliability Engineer: GONZALO Location: [facility] Provider: GODFREY VILLARREAL Quality: Adequate Order Provider: [...] Value Units Left Value Units FINDINGS: Performing Software Reliability Engineer: Jayda Dunn RVT. Bilateral: Venous Doppler signals [...] Electronically Signed By: Josias Cox MD [facility] [phone] 08/12/2024 12:46:53 PM CDT us Godfrey Villarreal MD IMG US PROCEDURES Final R esult * (ABNORMAL) Hemoglobin A1c (07/11/2024 9:14 PM THERAPY TECH) Hgb A1C 6.3(H) 4.0 - 5.6 % [...] a fasting glucose. Blood 07/11/2024 9:14 PM THERAPY TECH 07/11/2024 9:39 PM THERAPY TECH Narrative [facility] - 07/12/2024 8:23 AM THERAPY TECH Reflex us Rex Reid MD LAB BLOOD ORDERABLES Final Resul t [facility] [place] [address] * (ABNORMAL) Albumin Creatinine Ratio, Urine (05/13/2024 9:16 AM THERAPY TECH) Albumin Ur 3,688.8 mg/L Comment: Interpretive Data No reference range established. Current interpretive data was last revised 2018. Creatinine Ur 59.2 mg/dL [facility] Comment: Interpretive Data No reference range established. Current interpretive data was last revised 2018. Albumin Creatinine Ratio, Ur 6,231(H) 1 - 29 mg/g [facility] Urine 05/13/2024 9:16 AM THERAPY TECH 05/13/2024 2:55 PM THERAPY TECH us Matt Kendrick MD LAB URINE ORDERABLE S Final Result [facility] [address] [facility] [place] [address] * (ABNORMAL) Lipid panel (05/13/2024 9:16 AM THERAPY TECH) Cholesterol 128 30 - 199 mg/dL Comment: [...] 3 [facility] Blood 05/13/2024 9:16 AM THERAPY TECH 05/13/2024 2:55 PM THERAPY TECH us Matt Kendrick MD LAB BLOOD ORDERABLE S Final Result [facility] [address] [address] [place] [address] * CT abdomen pelvis without contrast (12/14/2023 [...]
--- OUTSIDE RECORDS SUMMARY | 2024-11-10 11:52 | XMS_ITS | Continuity of Care Document ---
Author Organization [facility] Address [address] [place] [address] [place] [address] Phone Care Team Providers Care Entry Level Finance Name Role Phone Gerard Mo MD Unavailable [...] Diagnoses Date Provider Providers Copied on Encounter [facility], [address], [place], [place], [id number], [place] tel:[phone] [facility] No Information [address], [place], [place], [address] , [place]. tel:[phone] OFFICE/OUTPA TIENT VISIT, EST [facility], [address], [place], [place], [address], [place] tel:[phone] [facility] suture1 (chief complaint) Pain in left hand [address], [place], [place], [address] , [place]. tel:[phone] Referring Provider: Jada [address] [facility] [address], [place], [place], [id number]. tel:[phone] OFFICE/OUTPA TIENT VISIT, [facility], [address], [place], [place], [address], [place] tel:[phone] [facility] diarrhea (chief complaint) diarrhea1 (chief complaint) DiarrheaEssential (primary) hypertensionBPH w/ lower urinary tract symptomsEncounter for general adult medical exam w abnormal findingsAnemiaMalig nant neoplasm of small intestine, unspecifiedType 2 diabetes mellitus without complications [address], [place], [place], [address] , [place]. [phone] Referring Provider: [address], [place], [place], [address]. tel:[phone] OFFICE/OUTPA TIENT VISIT, [facility], [address], [place], [place], [address], [place] tel:[phone] [facility] Anemia1 (chief complaint) DM (chief complaint) anxiety1 (chief complaint) insomnia1 (chief complaint) AnemiaType 2 diabetes mellitus without complicationsSleep disorder [address], [place], [place], [address] , [place]. tel:[phone] Referring Provider: Gerard Mo, [address], [place], [place], [address]. tel:[phone] OFFICE/OUTPA TIENT VISIT, [facility], [address], [place], [place], [address], [place] tel:[phone] [facility] Medicine colon CA (chief complaint) HTN (chief complaint) DM (chief complaint) Malignant neoplasm of ascending colonType 2 diabetes mellitus without complicationsEssent ial (primary) hypertensionAnemia 0-201 [address], [place], [place], [address] , [place]. tel:[phone] Referring Provider: Gerard Mo, [address] [facility] [address], [place], [place], [address]. tel:[phone] Family History Family Member Type Diagnosis Age [...] cu t volar surface left thumb with lawn service supervisor blade 10 days ago requiring suture [...] losartan, metoprolol, hydralazine and livalo He sees real estate acquisition analyst and endo. Pt is on metformin [...] decides to go to see oncologist at [facility] Pt will start chemo soon. Pt already seen the physician at [facility] DM Pt has DM Pt rosendo jauregui. [...] just had colectomy two weeks ago at [facility]. Pt is seeing surgeon now. Pt has [...]
--- OUTSIDE RECORDS SUMMARY | 2024-11-10 11:52 | XMS_ITS | Encounter Summary ---
Author Organization [facility] Address [address] [place] [address] Phone Care Team Providers Care Program Director Cable Television Name Role Phone Gerard Mo MD Primary Care Provider [phone] Marcella Taylor MD Unavailable Anselmo Sampson MD Primary Care Provider [phone] Godfrey Villarreal MD Unavailable [phone] Encounter Details Date Type Department Care Team (Latest Contact Info) Description 08/09/2018 Orders Only [facility] Scanning, Provider Social History Tobacco Use Types Packs/Day Years Used Date Smoking Tobacco: Former Smokeless Tobacco: Never Sex and Gender Information Value Date Recorded Sex Assigned at Not on file Legal Sex Male 6:14 AM DRESSING ROOM ATTENDANT Gender Identity Not on file Sexual Orientation [...] CDT COVID: Suspected 07/09/2024 07/09/202407/09/2024 11:36 AM DRESSING ROOM ATTENDANT COVID: Suspected 07/09/2024 07/09/2024 07/09/2024 4:05 PM DRESSING ROOM ATTENDANT documented as of this encounter Care Teams Program Director Cable Television Relationship Specialty Start Date End Date Gerard Mo MD PCP - General 11/01/17 04/25/22 [place] [address] [address] PCP - General Family Practice 04/26/22 Marcella Taylor MD [address] [place] [address] [address] [place] [address] Medical Oncologist/Customer Development Manager Medical Oncology 08/08/20 Godfrey Villarreal MD [address] [place] [address] Surgeon Vascular Surgery 09/20/24 documented as of this encounter
--- OUTSIDE RECORDS SUMMARY | 2024-11-10 11:52 | XMS_ITS | Encounter Summary ---
Author Organization [facility] Address [address] [facility] 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 Gender Identity Not on file Sexual [...] COVID: Suspected 07/09/2024 07/09/2024 07/09/2024 11:36 AM NOC ENGINEER COVID: Suspected 07/09/2024 07/09/2024 07/09/2024 4:05 PM NOC ENGINEER documented as of this encounter Care Teams Plant Control Aide Relationship Specialty [place] [address] [address] PCP - General Family Practice 04/26/22 Marcella Taylor MD [address] [place] [address] [address] [place] [address] Medical Oncologist/Pipe Organ Installer Medical Oncology 08/08/20 Godfrey Villarreal MD [address] [facility] [address] [place] [address] Surgeon Vascular Surgery 09/20/24 documented as of this encounter
--- OUTSIDE RECORDS SUMMARY | 2024-11-10 11:52 | XMS_ITS | Encounter Summary ---
Author Organization [facility] Address [address] [place] [address] Phone Care Team Providers Care Adobe Flex Developer Name Role Phone Marcella Taylor MD Primary Care Provider [phone] Gerard Mo MD Primary Care Provider [phone] Marcella Taylor MD Unavailable Anselmo Sampson MD Primary Care Provider [phone]- [phone] Godfrey Villarreal MD Unavailable [phone] Encounter Details Date Type Department Care Team (Late st Contact Info) Description 10/26/2017 Orders Only [facility] ProviderQuinten MD [address] [place] [address] Social History Tobacco Use Types Packs/Day Years Used Date Smoking Tobacco: Former Sex and Gender Information Value Date Recorded Sex Assigned at Not on file 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 Gender Identity Not on file Sexual [...] COVID: Suspected 07/09/2024 07/09/2024 07/09/2024 11:36 AM COLOR PRINT INSPECTOR COVID: Suspected 07/09/2024 07/09/2024 07/09/2024 4:05 PM COLOR PRINT INSPECTOR documented as of this encounter Care Teams Adobe Flex Developer Relationship Specialty Start Date End Date Marcella Taylor MD [address] [place] [address] PCP - General 10/26/17 10/31/17 Gerard Mo MD [address] [place] [address] PCP - General 11/01/17 04/25/22 [place] [address] [address] PCP - General Family Practice 04/26/22 Marcella Taylor MD [address] [place] [address] Medical Oncologist/Chuck Wagon Cook Medical Oncology 08/08/20 Godfrey Villarreal MD [address] [facility] [address] [place] [address] Surgeon Vascular Surgery 09/20/24 documented as of this encounter
--- OUTSIDE RECORDS SUMMARY | 2024-11-10 11:52 | XMS_ITS | Encounter Summary ---
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 Gender Identity Not on file Sexual Orientation [...] COVID: Suspected 07/09/2024 07/09/2024 07/09/2024 11:36 AM CURTAIN FELLER BLINDSTITCH COVID: Suspected 07/09/2024 07/09/2024 07/09/2024 4:05 PM CURTAIN FELLER BLINDSTITCH documented as of this encounter Care Teams Jewelry Bearing Maker Relationship Specialty [place] [address] [address] PCP - General Family Practice 04/26/22 Marcella Taylor MD [address] [place] [address] [address] [place] [address] Medical Oncologist/Stay Cutter Medical Oncology 08/08/20 Godfrey Villarrael MD [address] [facility] [address] [place] [address] Surgeon Vascular Surgery 09/20/24 documented as of this encounter
--- OUTSIDE RECORDS SUMMARY | 2024-11-10 11:52 | XMS_ITS | Continuity of Care Document ---
Author Name [facility] Organization [facility] Care Team Providers Care Burlap Worker Name Role Phone [facility] Unavailable Unavailable Problems Combined list of problems from Department of [facility] and [facility] Affairs facilities. It does not include entries that were removed or entered in error. Problem Status Onset Date Problem Type Date of Resolution Comments Source Diagnosis: ICD-10-CM H90.3 Sensorineural hearing loss, bilateral Active Diagnosis [facility] Immunizations Combined list of available immunizations from the Department of [facility] and [facility] facilities. Immunization Series Date Given Administered By Site Reaction Lot Number CVX Code Drug Compliance Attorney Status Comments Source COVID-19 (PFIZER), MRNA, LNP-S, PF, 30 MCG/0.3 ML DOSE 2 2020 208 complet ed PFR; [id number]; 1 [facility] COVID-19 (PFIZER), MRNA, LNP-S, PF, 30 MCG/0.3 ML DOSE 1 2020 208 complet ed PFR; [id number]; 1 [facility] Encounters Combined list of: 1) Encounters from Department of Veterans Affairs facilities going backup to the last 18 months, not all VA inpatient encounters are included; 2) Encounters from the Department of [facility] facilities going backup to 280 months. Location Location Details Encounter Type Encounter Number Reason For Visit Attending Provider ADM Date DC Date Status Disposition Source [facility] HEARING AID REPAIR/MOD IFYING [id number] Diagnos is: ICD-10- CM H90.3 Sensori neural hearing loss, MICAELA Saba 12/03 [facility] Outpatient Encounter [id number] 06/20 [facility]
--- OUTSIDE RECORDS SUMMARY | 2024-11-10 11:52 | XMS_ITS | Referral Summary ---
Author Organization [facility] al Address [address] [place] [address] Care Team Providers Care Tile Setter Apprentice Name Role Phone Marcella Taylor MD Unavailable Anselmo Sampson MD Primary Care Provider [phone] Godfrey Villarreal MD Unavailable Encounters Date Type Department Care Team Description 11/08/2024 Telephone [facility] Surgery [address] [facility] [place] [facility] 8th [place] [address] [place] [address] Godfrey Villarreal MD 10/18/2024 11:59 PM CDT Anesthesia Event [facility] Operating Room 1 [place] [address] Maryjo Galicia NP 11/01/2024 Documentation [facility] Surgery [address] [facility] Floor 1 [place] [address] Godfrey Villarreal MD 10/31/2024 Telephone [facility] Oncology [address] [place] [address] Valerie Aguirre CMA 10/30/2024 Telephone [facility] Surgery [address] [facility] Floor 1 [place] [address] Godfrey Villarreal MD 10/16/2024 Results Follow-Up [facility] Oncology [address] [place] [phone] Jose Antonio Gamble Lactate dehydrogenase (LD), Comprehensive metabolic panel, CBC with auto differential, Additional followed-up results: 3 10/16/2024 11:00 AM CDT Office Visit [facility] Oncology [address] [place] [phone] Ekaterina Chanel NP Low vitamin B12 level (Primary Dx); GIST (gastrointestinal stroma tumor), malignant, colon (HCC); 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) 10/16/2024 10:30 AM CDT Lab [address] [address] GIST (gastrointestinal stroma tumor), malignant, colon (HCC); 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); Low vitamin B12 level 10/16/2024 8:39 AM CDT - 10/16/2024 11:59 PM CDT Hospital Encounter [facility] [address] [place] [address] Discharge Disposition: Discharge to home or self care 10/16/2024 7:18 AM CDT - 10/16/2024 11:59 PM CDT Hospital Encounter [facility] [address] [place] [address] GIST (gastrointestinal stroma tumor), malignant, colon (HCC); 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) Discharge Disposition: Discharge to home or self care 10/14/2024 10:30 AM CDT Office Visit [facility] Vascular Surgery [address] [place] [address] Medical Office Building [address] [place] [address] Godfrey Villarreal MD ESRD (end stage renal disease) (HCC) (Primary Dx); Encounter for surgical aftercare following surgery on the circulatory system 10/11/2024 11:00 AM CDT Ancillary Procedure [facility] Vascular Lab Vascular Surgery [address] [place] [address] [address] [place] [address] End stage renal disease (HCC) 10/09/2024 Orders Only [facility] Oncology [address] [place] [address] Jose Antonio Gamble 10/09/2024 Telephone [facility] [address] [facility] [address] [place] [address] Matt Nicholson MD 09/20/2024 Orders Only [facility] Vascular Surgery [facility] Office Building 3 [address] [place] [phone] Godfrey Villarreal MD End stage renal disease (HCC) (Primary Dx) 09/20/2024 7:30 AM CDT - 09/20/2024 10:40 AM CDT Surgery [facility] Operating Room 1 [place] [phone] Godfrey Villarreal MD CREATION 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 09/20/2024 7:24 AM CDT Anesthesia Event [facility] Operating Room 1 [place] [phone] Joshua Rodgers MD Gangloff, Kerry Marie, NP 09/20/2024 5:44 AM CDT - 09/20/2024 11:38 AM CDT Hospital Encounter [facility] Operating Room 1 [place] [phone] Godfrey Villarreal MD ESRD (end stage renal disease) on dialysis (HCC) (Primary Dx) Discharge Disposition: Discharge to home or self care 09/19/2024 Telephone [facility] Vascular Surgery [facility] Office Building 3 [address] [place] [phone] Godfrey Villarreal MD 08/27/2024 Telephone [facility] Surgery [address] [place] [address] Floor 1 [place] [phone] Godfrey Villarreal MD 08/26/2024 Telephone [facility] Surgery [address] [place] [address] Floor 1 [place] [address] Godfrey Villarreal MD 08/14/2024 11:30 AM CDT Lab [address] [address] GIST (gastrointestinal stroma tumor), malignant, colon (HCC); 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 08/12/[address] [address] Gamble, Thera A. 08/12/2024 9:45 AM CDT Office Visit [facility] Vascular Surgery [address] [place] [address] Medical Office Building 3 [address] [place] [address] Godfrey Villarreal MD ESRD (end stage renal disease) (HCC) (Primary Dx) 08/12/2024 8:45 AM CDT Ancillary Procedure [facility] Vascular Lab Vascular Surgery [address] [place] [address] [address] [place] [address] ESRD (end stage renal disease) (HCC) from [...] (two) times a day with meals Active naxvjxw-xpfcrwmvi-i inc 333-133-5 mg tabletIndications:V itamin Deficiency Prevention [...] coma, with long-term current use of insulin ([facility]) Use daily or as directed for monitoring [...] coma, with long-term current use of insulin ([facility]) Check blood sugar 3 times daily 200 [...] coma, with long-term current use of insulin ([facility]) Inject 0.06 mL (6 Units total) under [...] 1 tablet (4 mg total) by mouth corporate pilot before breakfast 2023 Active cyanocobalamin (Vitamin B-12) [...] Assessment & Plan (07/14/2024 9:38 AM MACHINE PACKAGING TECHNICIAN): Patient has had progression of CKD to now ESRD needing dialysis initiation given c/f uremia symptoms. Directly admitted per renal. Underwent tunneled dialysis catheter by IR on 07/12 and received HD on 07/12 and 07/13 -Hemodialysis as per Nephrology -Continue home bicarb URI (upper respiratory infection) 07/11/2024 Assessment & Plan (07/12/2024 12:59 PM MACHINE PACKAGING TECHNICIAN): Suspected viral. COVID/flu/RSV neg 07/09. CXR neg 07/10. Was prescribed azithromycin on 07/09 which he took for 3 days. Will not continued further -Supportive care Hypomagnesemia 01/02/2024 CKD (chronic kidney disease) stage 4, GFR 15-29 ml/min 04/16/2023 Assessment & Plan (07/25/2023 10:06 AM MACHINE PACKAGING TECHNICIAN): Chronic problem. Managed by Dr Flores. Has f/u appt at end of the month. Assessment & Plan (04/16/2023 8:48 PM MACHINE PACKAGING TECHNICIAN): Chronic, stable Following with Writing Manager Acute kidney injury 02/24/2023 (HFpEF) heart failure with preserved ejection fr action 02/24/2023 Assessment & Plan (02/24/2023 3:38 PM CDT): TTE with EF 77% and at least grade 1 diastolic dysfunction (indeterminate on last TTE). Not in exacerbation -Cont home lasix 40mg -strict I&Os, daily weights -F/u with OSH Gaming Commissioner Dr. Payton CAD (coronary artery disease) 02/24/2023 Assessment & Plan (02/24/2023 3:38 PM CDT): S/p prior 5v CABG in 2012 -Cont statin and coreg -Intolerant of PATI-I/ARB due to worsening renal function -ASA held due to procedure -F/u with Cardiology outpatient Hyperlipidemia associated with type 2 diabetes aimee ulloa 02/24/2023 Assessment & Plan (07/11/2024 9:32 PM MACHINE PACKAGING TECHNICIAN): -Continue home welchol -Atorvastatin for home pitavastatin (non-formulary) Assessment & Plan (05/13/2024 9:10 AM MACHINE PACKAGING TECHNICIAN): Continue statin therapy Assessment & Plan (11/16/2023 11:18 AM CDT): Chronic problem. Currently taking Pitavatatin 4mg daily. Last lipid panel: 02/24/23 LDL=76, BR=091. Assessment & Plan (07/25/2023 10:22 AM MACHINE PACKAGING TECHNICIAN): Chronic problem. Currently taking Pitavatatin 4mg daily. Last lipid panel: 02/24/23 LDL=76, RO=282. Assessment & Plan (04/16/2023 8:46 PM MACHINE PACKAGING TECHNICIAN): On Pitavastatin therapy Tolerating well Assessment & Plan (02/24/2023 3:39 PM CDT): Cont statin and colesevelam Type 2 diabetes mellitus wit h stage 4 chronic kidney disease, with long-term current use of insulin 02/24/2023 Assessment & Plan (07/11/2024 9:31 PM MACHINE PACKAGING TECHNICIAN): F/b endo. Home regimen: tresiba 5U QHS, aspart 6-8U TID with meals Pt/ report issues with hypoglycemia lately at home. -Will start with SSI for now; titrate/add scheduled insulin pending glucose trends Assessment & Plan (05/13/2024 9:10 AM MACHINE PACKAGING TECHNICIAN): Chronic, uncontrolled, worsening Hemoglobin A1c 6.8 A1c [...] soon Daily foot care Advise to call [employer] and get the dexcom G 6 sensor to switch to G7 Check labs today Follow-up in 6 months Assessment & Plan (11/16/2023 11:17 AM CDT): Chronic problem. A1c stable at 6.1% but having overnight lows & occasionally lows after LN. Call your [employer] to switch from Dexcom G6 to Dexcom G7. Lower tresiba to 6 units nightly. If you notice that your over night readings are too high--start to increase by 1 unit weekly until they return to normal. If you're eating a commercial review appraiser lunch--drop the Fiasp to 6 units. Current medications: Tresiba 6 units at bedtime Fiasp 4 units with breakfast & dinner, 8 units with lunch (6 units if commercial review appraiser lunch) If blood sugar is between 151-200, add 1 units. If blood sugar is between 201-250, add 2 units. If blood sugar is between 251-300, add 3 units. If blood sugar is between 301-350, add 4 units. UTD on DM eye exam (06/15/23 at [facility]). UTD on labs. Discussed with José [...] Assessment & Plan (07/25/2023 10:02 AM MACHINE PACKAGING TECHNICIAN): Chronic problem. A1c stable at 6.1% but having overnight lows & occasionally lows after LN. Call your [employer] to switch from Dexcom G6 to Dexcom G7. Lower tresiba to 6 units nightly. If you notice that your over night readings are too high--start to increase by 1 unit weekly until they return to normal. If you're eating a commercial review appraiser lunch--drop the Fiasp to 6 units. Current medications: Tresiba 6 units at bedtime Fiasp 4 units with breakfast & dinner, 8 units with lunch (6 units if commercial review appraiser lunch) If blood sugar is between 151-200, add 1 units. If blood sugar is between 201-250, add 2 units. If blood sugar is between 251-300, add 3 units. If blood sugar is between 301-350, add 4 units. DM eye exam 06/2023 at [facility]. Letter sent to get copy of report. [...] Assessment & Plan (04/16/2023 8:47 PM MACHINE PACKAGING TECHNICIAN): Chronic , improving overall hyperglycemia but now [...] TID +SSI; adjust PRN -F/u with OSH scanning tech Proteinuria 02/24/2023 Assessment & Plan (02/25/2023 7:46 [...] Assessment & Plan (07/12/2024 12:57 PM MACHINE PACKAGING TECHNICIAN): Getting aranesp outpatient -Trend CBC -Transfuse PRN [...] Assessment & Plan (07/11/2024 9:30 PM MACHINE PACKAGING TECHNICIAN): -Continue home amlodipine, hydralazine, coreg Assessment & Plan (05/13/2024 9:11 AM MACHINE PACKAGING TECHNICIAN): Chronic, fairly controlled for pt age Continue amlodipine Managed by nephrology Assessment & Plan (11/16/2023 11:18 AM CDT): Chronic problem. Controlled on current Carvedilol 25mg bid, amlodipine 10mg daily, lasix 20mg daily. not taking hydralazine currently Assessment & Plan (07/25/2023 10:05 AM MACHINE PACKAGING TECHNICIAN): Chronic problem. Controlled on current Carvedilol 25mg bid, amlodipine 10mg daily, lasix 20mg daily. 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 021 GIST (gastrointestinal stroma tumor), malignant, colon 08/14/2020 Overview (08/14/2020): Added automatically from request for surgery [id number] Assessment & Plan (07/14/2024 9:38 AM MACHINE PACKAGING TECHNICIAN): Pt of Dr Taylor -Holding home ripretinib [...] file Legal Sex Male 6:14 AM MACHINE PACKAGING TECHNICIAN Gender Identity Not on file Sexual [...] Chamberlain NP Medical Devices Implanted Type Area Labor Union Business Representative Device Identifier Shelf Expiration Date Model / Serial / Lot Stent- 8 Implanted:04/19 by [facility], Carol Esquivel MD (Quantity not on file) Stent Heart Description:1.5 or 3 Nazia N ormal Mode Scan 15 rest 5 [employer] Duraflow Embosafe 15.5fr 28cm Basic 2 Lumen Kit Catheter [id number] - [id number] Implanted:Qty: 1 on 07/12/2024 at [facility] [employer] 08/02/2026 [id number] / / [id number] Procedures Procedure Name Priority Date/Time Associated Diagnosis [...] DEVICE Routine 09/20/2024 9 :00 AM CDT TX AN PROCEDURE PLACEHOLDER Routine 09/20/2024 7:59 AM CDT TX AN ELECTIVE ENDOTRACHEAL AIRWAY Routine 09/20/2024 7:59 [...] (HCC) HEMOGLOBIN A1C Timed 07/11/2024 9:14 PM MACHINE PACKAGING TECHNICIAN LIPID PANEL Routine 05/13/2024 9:16 AM MACHINE PACKAGING TECHNICIAN Type 2 diabetes mellitus with stage 4 chronic kidney disease, with long-term current use of insulin (HCC) Hyperlipidemia associated with type 2 diabetes mellitus (HCC) ALBUMIN CREATININE RATIO, URINE Routine 05/13/2024 9:16 AM MACHINE PACKAGING TECHNICIAN Type 2 diabetes mellitus with stage 4 [...] Resul t [facility] Department of Laboratories [place], [place] [id number] * Differential, auto (10/16/2024 10:22 AM CDT) Neutrophil abs 5.36 1.50 - 6.50 K/cumm Comment:Testing performed by : [facility], [address] [place] [address] Imm gran abs 0.08 0.00 - 0.10 K/cumm [facility] Lymphocyte abs 1.50 0.80 - 3.30 K/cumm [facility] Monocyte abs 0.64 0.20 - 0.80 K/cumm [facility] Eosinophil abs 0.37 0.00 - 0.50 K/cumm [facility] Basophil abs 0.06 0.00 - 0.10 K/cumm [facility] Neutrophil pct 67.0 % [facility] Comment: Interpretive Data Percent cell count reference ranges are not reported, since discordance with absolute values may lead to misinterpretation of CBC data. Current Interpretive Data was last revised on 2017. Imm gran pct 1.0 % [facility] Comment: Interpretive Data Percent cell count reference ranges are not reported, since discordance with absolute values may lead to misinterpretation of CBC data. Current Interpretive Data was last revised on 2017. Lymphocyte pct 18.7 % [facility] Comment: Interpretive Data Percent cell count reference ranges are not reported, since discordance with absolute values may lead to misinterpretation of CBC data. Current Interpretive Data was last revised on 2017. Monocyte pct 8.0 % [facility] Comment: Interpretive Data Percent cell count reference ranges are not reported, since discordance with absolute values may lead to misinterpretation of CBC data. Current Interpretive Data was last revised on 2017. Eosinophil pct 4.6 % [facility] Comment: Interpretive Data Percent cell count reference ranges are not reported, since discordance with absolute values may lead to misinterpretation of CBC data. Current Interpretive Data was last revised on 2017. Basophil pct 0.7 % [facility] Comment: Interpretive Data Percent cell count reference ranges are not reported, since discordance with absolute values may lead to misinterpretation of CBC data. Current Interpretive Data was last revised on 2017. Blood 10/16/2024 10:2 2 AM CDT 10/16/2024 10:22 AM CDT us Marcella Taylor MD LAB BLOOD ORDERABLES Final Resul t [facility] [place] [address] * (ABNORMAL) CBC with auto differential (10/16/2024 10:22 AM CDT) WBC 8.01 3.80 - 9.90 K/cumm Comment:Testing performed by : [address] [address] Hgb 11.2(L) 13.0 - 17.5 g/dL [facility] Comment:Testing performed by : [address] [address] Hct 34.4(L) 38.9 - 50.3 % [facility] Comment:Testing performed by : [address] [address] Plt 165 150 - 400 K/cumm [facility] Comment:Testing performed by : [address] [address] MPV 10.7 9.1 - 12.3 fL [facility] RBC 3.94(L) 4.30 - 5.80 M/cumm [facility] MCV 87.3 81.3 - 96.4 fL [facility] MCH 28.4 27.1 - 33.3 pg [facility] MCHC 32.6 32.3 - 35.7 g/dL [facility] RDW CV 14.6 11.1 - 14.9 % [facility] RDW SD 46.6 35.7 - 48.1 fL [facility] NRBC abs 0.00 0.00 - 0.01 K/cumm [facility] ANC Prelim 5.36 1.50 - 6.50 K/cumm [facility] Comment: Interpretive Data The rapid ANC is a preliminary automated count and may vary from the final ANC (Neut Abs) reported in the WBC differential that follows. Current interpretive data was last revised 2024. Blood 10/16/2024 10:2 2 AM CDT 10/16/2024 10:22 AM CDT Marcella Taylor MD LAB BLOOD ORDERABLES Final Resul t Performing Organization Address City/[facility] Co de Phone Number [facility] Department [place] [address] * Lactate dehydrogenase (LD) (10/16/2024 10:22 AM CDT) Lactate dehydrogenase (LDH) 245 100 - 250 Units/L Comment:Testing performed by : [address] [address] Blood 10/16/2024 10:2 2 AM CDT 10/16/2024 10:22 AM CDT Marcella Taylor MD LAB BLOOD ORDERABLES Final Resul t Performing Organization Address [facility] de Phone Number [facility] Department [place] [address] * (ABNORMAL) Comprehensive metabolic panel (10/16/2024 10:22 AM CDT) Pathologist [facility] Sodium 138 135 - 145 mmol/L Comment:Testing performed by : [address] [address] Potassium, pl 4.6 3.3 - 4.9 mmol/L [facility] Chloride 104 97 - 110 mmol/L [facility] CO2 26 22 - 32 mmol/L [facility] Anion gap 8 2 - 15 mmol/L [facility] BUN 41(H) 6 - 25 mg/dL [facility] Creatinine 5.47(H) 0.80 - 1.30 mg/dL [facility] Glucose 230(H) 70 - 199 mg/dL [facility] Comment: Interpretive Data Fasting glucose [...] 2022. Calcium 8.4(L) 8.5 - 10.3 mg/dL [facility] Bilirubin, total 0.8 0.1 - 1.2 mg/dL [facility] Protein, pl 6.5 6.5 - 8.5 g/dL [facility] Albumin 3.7 3.5 - 5.0 g/dL [facility] Alk phos 84 40 - 130 Units/L [facility] ALT 12 7 - 55 Units/L [facility] AST 19 10 - 50 Units/L [facility] Blood 10/16/2024 10:2 2 AM CDT 10/16/2024 10:22 AM CDT Marcella Taylor MD LAB BLOOD ORDERABLES Final Resul t Performing Organization Address City/[facility]/ZIP Co de Phone Number [facility] [place] [place] [address] * Vitamin B12 (10/16/2024 10:20 AM CDT) Vitamin B12 795 230 - 1,250 pg/mL Blood 10/16/2024 10:2 0 AM CDT 10/16/2024 1:49 PM CDT Marcella Taylor MD LAB BLOOD ORDERABLES Final Resul t Performing Organization Address City/[facility]/ZIP Co de Phone Number [facility] [place] [place] [address] * PET/CT FDG Skull to Thigh (10/16/2024 [...] FDG-PET/CT IMAGING DATE OF STUDY: 10/16/2024 SCANNER: [facility] RADIOPHARMACEUTICAL: 16.31 mCi F-18 Fluorodeoxyglucose (FDG) [...] obtained. The study was interpreted on the [employer] workstation. The mean liver SUV (reported for quality assurance practice manager purposes) is 2.4. The total scanned area [...] FDG-PET/CT IMAGING DATE OF STUDY: 10/16/2024 SCANNER: [facility] RADIOPHARMACEUTICAL: 16.31 mCi F-18 Fluorodeoxyglucose (FDG) [...] obtained. The study was interpreted on the [employer] workstation. The mean liver SUV (reported for quality assurance practice manager purposes) is 2.4. The total scanned area [...] AM CDT Narrative 10/11/2024 1:44 PM CDT [facility] - Department of Vascular Surgery, Vascular Laboratory [address] [place] [address] Dialysis Access Fistula/Graft Duplex Report Patient Name: JOSÉ LUIS GAMBLE : 1945 (79y ) Gender: M Study Date: 10/11/2024 10:49:25 AM Stablehand: GONZALO Location: [facility] Order Provider: GODFREY VILLARREAL Quality: Adequate Ref [...] Arm Diameter 0.46 cm Rt Deep Vein [place] 58.40 cm/s Rt Outflow Distal Arm Depth 0.27 cm Rt Axillary Vein PSV 58.20 cm/s Rt Outflow Mid Arm Diameter 0.38 cm Rt Subclavian Vein 26.60 cm/s Rt Outflow Mid Arm Depth 0.56 cm Rt Outflow Vein (Graft) Volume Flow Average 310 cc/min Rt Outflow Proximal Arm Diameter 0.43 cm Rt Outflow Proximal Arm Depth 0.71 cm Rt Deep Vein [place] Diameter 0.43 cm Rt Deep Vein [place] Depth 2.10 cm Rt Inflow Artery Diameter 0.53 cm Diameter/Depth Value Units Velocities Value Units FINDINGS: Performing Stablehand: Jayda Dunn RVT. [place] Arterial Inflow Normal: No evidence of arterial [...] above. Electronically Signed By: Josias Cox MD [facility] [phone] 10/11/2024 1:30:12 PM CDT Procedure Note Josias Cox MD - 10/11/2024 [facility] - Department of Vascular Surgery,Vascular Laboratory [address] [place] [address] Dialysis Access Fistula/Graft Duplex Report Patient Name: JOSÉ LUIS GAMBLE : 1945 (79y ) Gender: M Study Date: 10/11/2024 10:49:25 AM Stablehand: GONZALO Location: [facility] Order Provider: GODFREY VILLARREAL Quality: Adequate Ref [...] Arm Diameter 0.46 cm Rt Deep Vein [place] 58.40cm/s Rt Outflow Distal Arm Depth 0.27 cm Rt Axillary Vein PSV 58.20 cm/s Rt Outflow Mid Arm Diameter 0.38 cm Rt Subclavian Vein 26.60 cm/s Rt Outflow Mid Arm Depth 0.56 cm Rt Outflow Vein (Graft) Volume FlowAverage 310 cc/min Rt Outflow Proximal Arm Diameter 0.43 cm Rt Outflow Proximal Arm Depth 0.71 cm Rt Deep Vein [place] Diameter 0.43 cm Rt Deep Vein [place] Depth 2.10 cm Rt Inflow Artery Diameter 0.53 cm Diameter/Depth Value Units Velocities Value Units FINDINGS: Performing Stablehand: Jayda Dunn RVT. [place] Arterial Inflow Normal: No evidence of arterial [...] above. Electronically Signed By: Josias Cox MD [facility] [phone] 10/11/2024 1:30:12 PM CDT Godfrey Villarreal MD [place] US PROCEDURES Final R esult * POCT glucose (09/20/2024 9:25 AM CDT) Glucose, POC 145 70 - 199 mg/dL Blood 09/20/2024 9:25 AM CDT 09/20/2024 9:25 AM CDT us Godfrey Villarreal MD LAB POCT ORDERABLES - DEV ICE Final [facility] [place] [id number] * POCT glucose (09/20/2024 9:00 AM CDT) Glucose, POC 133 70 - 199 mg/dL Blood 09/20/2024 9:00 AM CDT 09/20/2024 9:00 AM CDT us Godfrey Villarreal MD LAB POCT ORDERABLES - DEV ICE Final Result Performing Organization Address [facility] Co de Phone Number [facility] [place] [address] * TX AN ELECTIVE ENDOTRACHEAL AIRWAY, TX AN PROCEDURE PLACEHOLDER (09/20/2024 7:59 AM CDT) Narrative Caridad Hernandez CRNA - 09/20/2024 7:59 AM CDT Caridad Hernandez CRNA 09/20/2024 8:00 AM Airway Patient location: OR Urgency: elective Date/time: 09/20/2024 7:36 AM Indications for airway management: anesthesia Difficult airway: no Staff: Supervising provider: Joshua Rodgers MD Placed by: SOCIAL MEDIA MANAGER: Caridad Hernandez CRNA Emergent airway documentation: [...] K POC 3.2(L) 3.3 - 4.9 mmol/L [facility] Comment: Interpretive Data Not all point of care methods assess for hemolysis. Confirm with instrument and retest K+ if not consistent with clinical signs and symptoms. Current Interpretive Data was last revised on 2023. Glucose, POC 165 70 - 199 mg/dL [facility] Hct, POC 33.0(L) 41.4 - 51.6 % [facility] Total Hb, POC 11.0(L) 13.8 - 17.2 g/dL [facility] Blood 09/20/2024 7:05 AM CDT 09/20/2024 7:05 AM CDT Godfrey Villarreal MD LAB POCT ORDERABLES - DEV ICE Final Result [facility] [place] [address] * (ABNORMAL) eGFR (08/14/2024 11:18 AM CDT) [...] MD LAB BLOOD ORDERABLES Final Resul t [facility] [place] [address] * (ABNORMAL) Differential, auto (08/14/2024 11:18 AM CDT) Neutrophil abs 7.7(H) 1.5 - 6.5 K/cumm Comment:Testing performed by : [facility], [address] [place] [id number] Imm gran abs 0.1 0.0 - 0.1 K/cumm [facility] Lymphocyte abs 2.0 0.8 - 3.3 K/cumm [facility] Monocyte abs 0.8 0.2 - 0.8 K/cumm [facility] Eosinophil abs 0.4 0.0 - 0.5 K/cumm [facility] Basophil abs 0.1 0.0 - 0.1 K/cumm [facility] Neutrophil pct 69.7 % [facility] Comment: Interpretive Data Percent cell count reference ranges are not reported, since discordance with absolute values may lead to misinterpretation of CBC data. Current Interpretive Data was last revised on 2017. Imm gran pct 0.5 % [facility] Comment: Interpretive Data Percent cell count reference ranges are not reported, since discordance with absolute values may lead to misinterpretation of CBC data. Current Interpretive Data was last revised on 2017. Lymphocyte pct 17.9 % [facility] Comment: Interpretive Data Percent cell count reference ranges are not reported, since discordance with absolute values may lead to misinterpretation of CBC data. Current Interpretive Data was last revised on 2017. Monocyte pct 7.6 % [facility] Comment: Interpretive Data Percent cell count reference ranges are not reported, since discordance with absolute values may lead to misinterpretation of CBC data. Current Interpretive Data was last revised on 2017. Eosinophil pct 3.6 % [facility] Comment: Interpretive Data Percent cell count reference ranges are not reported, since discordance with absolute values may lead to misinterpretation of CBC data. Current Interpretive Data was last revised on 2017. Basophil pct 0.7 % [facility] Comment: Interpretive Data Percent cell count reference ranges are not reported, since discordance with absolute values may lead to misinterpretation of CBC data. Current Interpretive Data was last revised on 2017. Blood 08/14/2024 11:1 8 AM CDT 08/14/2024 11:18 AM CDT us Marcella Taylor MD LAB BLOOD ORDERABLES Final Resul t [facility] [place] [address] * (ABNORMAL) CBC with auto differential (08/14/2024 11:18 AM CDT) WBC 11.0(H) 3.8 - 9.9 K/cumm Comment:Testing performed by : [address] [address] Hgb 10.3(L) 13.0 - 17.5 g/dL [facility] Comment:Testing performed by : [address] [address] Hct 32.1(L) 38.9 - 50.3 % [facility] Comment:Testing performed by : [address] [address] Plt 187 150 - 400 K/cumm [facility] Comment:Testing performed by : [address] [address] MPV 9.6 9.1 - 12.3 fL [facility] RBC 3.88(L) 4.30 - 5.80 M/cumm [facility] MCV 82.7 81.3 - 96.4 fL [facility] MCH 26.5(L) 27.1 - 33.3 pg [facility] MCHC 32.1(L) 32.3 - 35.7 g/dL [facility] RDW CV 17.1(H) 11.1 - 14.9 % [facility] RDW SD 51.6(H) 35.7 - 48.1 fL [facility] NRBC abs 0.00 0.00 - 0.01 K/cumm [facility] Blood 08/14/2024 11:1 8 AM CDT 08/14/2024 11:18 AM CDT Marcella Taylor MD LAB BLOOD ORDERABLES Final Resul t Performing Organization Address [facility] de Phone Number [facility] Department [place] [address] * (ABNORMAL) Lactate dehydrogenase (LD) (08/14/2024 11:18 AM CDT) [facility] Lactate dehydrogenase (LDH) 343(H) 100 - 250 Units/L Comment:Testing performed by : [address] [address] Blood 08/14/2024 11:1 8 AM CDT 08/14/2024 11:18 AM CDT Marcella Taylor MD LAB BLOOD ORDERABLES Final Resul t Performing Organization Address City/[facility] de Phone Number [facility] [place] [address] * (ABNORMAL) Comprehensive metabolic panel (08/14/2024 11:18 AM CDT) [facility] Sodium 142 135 - 145 mmol/L Comment:Testing performed by : [address] [address] Potassium, pl 4.7 3.3 - 4.9 mmol/L [facility] Chloride 107 97 - 110 mmol/L [facility] CO2 27 22 - 32 mmol/L [facility] Anion gap 8 2 - 15 mmol/L [facility] BUN 41(H) 6 - 25 mg/dL [facility] Creatinine 5.63(H) 0.80 - 1.30 mg/dL [facility] Glucose 170 70 - 199 mg/dL [facility] Comment: Interpretive Data Fasting glucose [...] 2022. Calcium 8.0(L) 8.5 - 10.3 mg/dL [facility] Bilirubin, total 0.5 0.1 - 1.2 mg/dL [facility] Protein, pl 6.5 6.5 - 8.5 g/dL [facility] Albumin 3.6 3.5 - 5.0 g/dL [facility] Alk phos 83 40 - 130 Units/L [facility] ALT 11 7 - 55 Units/L [facility] AST 22 10 - 50 Units/L [facility] Blood 08/14/2024 11:1 8 AM CDT 08/14/2024 11:18 AM CDT us Marcella Taylor MD LAB BLOOD ORDERABLES Final Resul t [facility] [place] [address] * US Vein Mapping Fistula Access, Bilateral (08/12/2024 9:16 AM CDT) Anatomical Region Laterality Modality Vascular Bilateral Ultrasound 08/12/2024 7:00 AM CDT Narrative 08/12/2024 12:47 PM CDT [employer] - Department of Vascular Surgery, Vascular Laboratory [address] [place] [id number] Upper Extremity Vein Mapping Report Patient Name: JOSÉ LUIS GAMBLE : 1945 (78y 10m) Study Date: 08/12/2024 7:00:58 AM Gender: M Stablehand: GONZALO Location: [facility] Provider: GODFREY VILLARREAL Quality: Adequate [...] Value Units Left Value Units FINDINGS: Performing Stablehand: Jayda Dunn RVT. Bilateral: Venous Doppler signals [...] above. Electronically Signed By: Josias Cox MD [facility] [phone] 08/12/2024 12:46:53 PM CDT Procedure Note Josias Cox MD - 08/12/2024 [facility] - Department of Vascular Surgery,Vascular Laboratory [address] [place] [address] Upper Extremity Vein Mapping Report Patient Name: JOSÉ LUIS GAMBLE : 1945 (78y 10m) Study Date: 08/12/2024 7:00:58 AM Gender: M Stablehand: GONZALO Location: [facility] Provider: GODFREY VILALRREAL Quality: Adequate Order Provider: GODFREY VILLARREAL PROCEDURES: [...] Value Units Left Value Units FINDINGS: Performing Stablehand: Jayda Dunn RVT. Bilateral: Venous Doppler signals [...] above. Electronically Signed By: Josias Cox MD [facility] [phone] 08/12/2024 12:46:53 PM CDT Godfrey Villarreal MD [place] US PROCEDURES Final R esult * (ABNORMAL) Hemoglobin A1c (07/11/2024 9:14 PM MACHINE PACKAGING TECHNICIAN) Hgb A1C 6.3(H) 4.0 - 5.6 % Estimated Average Glucose 134 mg/dL [facility] Comment: The ADA recommends reporting an estimated Average Glucose (eAG) with all Hemoglobin A1c results using the equation derived from a study of 507 normal and diabetic adults. Minority populations were underrepresented and children were not included. (Diabetes Care 2020; 43(S1): S66-S76). The eAG is not equivalent to a fasting glucose. Blood 07/11/2024 9:14 PM MACHINE PACKAGING TECHNICIAN 07/11/2024 9:39 PM MACHINE PACKAGING TECHNICIAN Narrative [facility] - 07/12/2024 8:23 AM MACHINE PACKAGING TECHNICIAN Reflex us Rex Reid MD LAB BLOOD ORDERABLES Final Resul t Performing Organization Address [facility] Co de Phone Number [facility] [place] [address] * (ABNORMAL) Albumin Creatinine Ratio, Urine (05/13/2024 9:16 AM MACHINE PACKAGING TECHNICIAN) Albumin Ur 3,688.8 mg/L Comment: Interpretive Data No reference range established. Current interpretive data was last revised 2018. Creatinine Ur 59.2 mg/dL [facility] Comment: Interpretive Data No reference range established. Current interpretive data was last revised 2018. Albumin Creatinine Ratio, Ur 6,231(H) 1 - 29 mg/g [facility] Urine 05/13/2024 9:16 AM MACHINE PACKAGING TECHNICIAN 05/13/2024 2:55 PM MACHINE PACKAGING TECHNICIAN us Matt Kendrick MD LAB URINE ORDERABLE S Final Result Performing Organization Address [facility] Co de Phone Number [facility] [address] [place] [address] * (ABNORMAL) Lipid panel (05/13/2024 9:16 AM MACHINE PACKAGING TECHNICIAN) Cholesterol 128 30 - 199 mg/dL Comment: [...] 3 [facility] Blood 05/13/2024 9:16 AM MACHINE PACKAGING TECHNICIAN 05/13/2024 2:55 PM MACHINE PACKAGING TECHNICIAN us Matt Kendrick MD LAB BLOOD ORDERABLE S Final Result [facility] [address] [place] [address] * CT abdomen pelvis without contrast (12/14/2023 [...] Date Diagnosed Date Autogenerated Problem 10/29/[address] [place] [id number] MEDICARE LOCAL [address] SUPPLEMENT MEDICARE LOCAL [address] SUPPLEMENT MEDICARE COMMERCIAL GENERIC Advance Directives For more information, please contact: [phone] * Full Code (Latest Code Status on [...] 1:19 PM 07/30/2020 4:54 AM Care Teams Tile Setter Apprentice Relationship Specialty [place] [address] [address] PCP - General Family Practice 04/26/22 Marcella Taylor MD [address] [place] [address] [address] [place] [address] Medical Oncologist/Safety Trainer Medical Oncology 08/08/20 Godfrey Villarreal MD [address] [facility] [id number] [place] [address] Surgeon Vascular Surgery 09/20/24
--- OUTSIDE RECORDS SUMMARY | 2024-11-10 11:52 | XMS_ITS | Encounter Summary ---
Author Organization [facility] Address [address] [place] [address] Phone Care Team Providers Care Charging Crane Operator Name Role Phone Marcella Taylor MD Unavailable Anselmo Sampson MD Primary Care Provider [phone] Godfrey Villarreal MD Unavailable [phone] Encounter Details Date Type Department Care Team [...] on file Legal Sex Male 6:14 AM PIPELINE WELDER Gender Identity Not on file Sexual Orientation [...] COVID: Suspected 07/09/2024 07/09/2024 07/09/2024 11:36 AM PIPELINE WELDER COVID: Suspected 07/09/2024 07/09/2024 07/09/2024 4:05 PM PIPELINE WELDER documented as of this encounter Care Teams Charging Crane Operator Relationship Specialty Start [place] [address] [address] [address] PCP - General Family Practice 04/26/22 Marcella Taylor MD [address] [facility] [address] [place] [address] Medical Oncologist/Counsellors Medical Oncology 08/08/20 Godfrey Villarreal MD [address] [facility] [id number] [place] [address] Surgeon Vascular Surgery 09/20/24 documented as of this encounter
== END 2024-11-10 13:59 | disposition home or self-care (01) ==
PROVIDERS: Emergency Provider Emergency Medicine; PCP Family Medicine
DX: D16.32 Benign neoplasm of short bones of left lower limb (principal); E11.9 Type 2 diabetes mellitus without complications; I10 Essential (primary) hypertension; E78.5 Hyperlipidemia, unspecified; Z99.2 Dependence on renal dialysis; Z79.4 Long term (current) use of insulin; Z87.891 Personal history of nicotine dependence
CPT/HCPCS: 73610; 73630; 99283

== ENCOUNTER 2024-12-01 14:35 | Inpatient (IN) | payer MEDICARE, OTHER, SELFPAY ==
[2024-12-01] VITALS (24 sets, daily range): BP systolic 149–180; BP diastolic 44–106; PULSE 51–87; RESP 14–29; TEMP 37.4–37.7; O2SAT 93–98; BMI 29.9
--- NOTE | ~2024-12-01 | US_ITS ---
ULTRASOUND ANKLE BRACHIAL INDEX Ordering provider: Aguilar Villegas MD History: . arterial disease bilateral . Comparison: None. FINDINGS: Right brachial systolic blood pressure: 146 mmHg Left brachial systolic blood pressure: 1426 mmHg Right ankle systolic blood pressure: 143 mmHg Left ankle systolic blood pressure: 138 mmHg Right ankle/arm index (ABBIE): 0.98. Left ankle/arm index (ABBIE): 0.95. Note regarding ABBIE: --Normal= 1.0 or slightly greater. --Claudication (moderate stenosis or occlusive state)= 0.6 to 0.9. --Rest pain (severe occlusive states)= 0.5 or less. IMPRESSION: Mild stenosis bilaterally. Clinical correlation and further evaluation advised. Reviewed, dictated and finalized at location A. IMPRESSION: Mild stenosis bilaterally. Clinical correlation and further evaluation advised .
--- NOTE | ~2024-12-01 | XR_ITS ---
Left foot Technique: AP, oblique, and lateral views were obtained. Clinical History: Pain Findings: No acute fracture or dislocation is seen. Probable old, healed fracture of the distal fibul ar shaft. Osseous alignment is anatomic. Joint spaces are preserved without erosive or degenerative c hange. Soft tissues are unremarkable. Impression: No acute abnormality. Probable old healed fracture of the distal fibular shaft. Reviewed, dictated and finalized at location . Impression: No acute abnormality. Probable old healed fracture of the distal fibular shaft.
--- NOTE | ~2024-12-01 | MR_ITS ---
EXAMINATION: MR ankle LT wo con DATE: 12/04/2024 14:14 INDICATION: Avascular necrosis TECHNIQUE: Magnetic resonance imaging (MRI) of the left ankle was performed without intravenous contr ast. Sequences included sagittal, coronal, and axial proton-density weighted fast spin echo without a nd with fat saturation. COMPARISON: None. FINDINGS: Medial ankle ligaments: Superficial deltoid ligament is normal. There is loss of the normally well-defined striated appearanc e of the deep deltoid ligament along with some heterotopic ossification along the ligament consistent with sequela of chronic sprain. Spring ligament complex is normal. Lateral ankle ligaments: The anterior and posterior inferior tibiofibular ligaments are normal. The anterior talofibular, calc aneofibular and posterior talofibular ligaments are normal. Tendons: Enthesophytes and small enthesopathic ossicles at the calcaneal insertion of the otherwise normal Ach illes tendon. The peroneus longus and brevis tendons are normal. The tibialis anterior and extensor h allucis longus and extensor digitorum longus tendons are normal. The tibialis posterior, flexor digit orum longus and flexor hallucis longus tendons are normal. Plantar fascia: Moderate-sized plantar calcaneal spur at the calcaneal origin of the otherwise normal Achilles tendon . Bones/other: There is a large osteochondroma with cortical and medullary continuity arising from the lateral side of the distal tibial metadiaphysis. The margins of the osteochondroma extends towards nearly abuts th e medial margin of the distal fibula with secondary remodeling of the fibula. Bone alignment is other alejandra normal. No fracture. Subtalar osteoarthritis, severe in the anterior and middle facets. Addition al moderate osteoarthritis with subarticular edema-like signal changes at the first tarsal metatarsal joint and mild osteoarthritis the remaining joints throughout the mid foot. Finally there is degener ative change with cortical irregularity and mild subcortical edema-like signal change at the inferior aspect of the talus where it abuts a small portion of the cuboid. Fluid: Likely reactive small ankle and subtalar joint effusions. There is prominent subcutaneous edema about the distal calf extending across ankle and over the dorsum of the foot. Increased fluid signal and m oderate to severe fatty atrophy of the intrinsic musculature of the foot suggestive of acute on chron ic innervation change. IMPRESSION: 1. 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 2. 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 3. Moderate to severe fatty atrophy and diffuse increased muscular fluid signal in the intrinsic musc ulature of the foot suggestive of acute on chronic denervation change. 4. I can't. The the calcaneal insertions of the distal Achilles tendon and proximal plantar aponeuros is. Reviewed, dictated and finalized at location A. IMPRESSION: 1. 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 2. Large osteochondroma at the lateral aspect of the distal metadiaphyseal juliano on of the left tibia which nearly abuts the distal fibula which demonstrates ch ronic secondary remodeling. 3. Moderate to severe fatty atrophy and diffuse increased muscular fluid signal in the intrinsic musculature of the foot suggestive of acute on chronic denerv ation change. 4. I can't. The the calcaneal insertions of the distal Achilles tendon and prox imal plantar aponeurosis.
--- NOTE | ~2024-12-01 | US_ITS ---
BILATERAL LOWER EXTREMITY VENOUS ULTRASOUND Ordering provider: Aguilar Villegas MD History: . severe leg edema . Comparison: None. FINDINGS: RIGHT LOWER EXTREMITY VEINS: --COMMON FEMORAL: Patent and free of thrombus. Normal compressibility, phasic flow and augmentation. --PROXIMAL SUPERFICIAL FEMORAL: Patent and free of thrombus. Normal compressibility, phasic flow and augmentation. --DISTAL SUPERFICIAL FEMORAL: Patent and free of thrombus. Normal compressibility, phasic flow and au gmentation. --POPLITEAL: Patent and free of thrombus. Normal compressibility, phasic flow and augmentation. --POSTERIOR TIBIAL: Patent and free of thrombus. Normal compressibility, phasic flow and augmentation . LEFT LOWER EXTREMITY VEINS: --COMMON FEMORAL: Patent and free of thrombus. Normal compressibility, phasic flow and augmentation. --PROXIMAL SUPERFICIAL FEMORAL: Patent and free of thrombus. Normal compressibility, phasic flow and augmentation. --DISTAL SUPERFICIAL FEMORAL: Patent and free of thrombus. Normal compressibility, phasic flow and au gmentation. --POPLITEAL: Patent and free of thrombus. Normal compressibility, phasic flow and augmentation. --POSTERIOR TIBIAL: Patent and free of thrombus. Normal compressibility, phasic flow and augmentation . IMPRESSION: Negative bilateral lower extremity venous US. No deep vein thrombosis. Reviewed, dictated and finalized at location A.
--- NOTE | ~2024-12-01 | XR_ITS ---
EXAMINATION: XR chest 1V portable Exam Date/Time: 12/01/2024 15:25 CDT HISTORY: cough Comparison: 10/29/2024. RESULT: Lines, tubes, and devices: Intact sternotomy wires. Right IJ dialysis catheter terminating in the ri ght atrium. Coronary stenting. Lungs and pleura: Clear. Cardiomediastinal silhouette: Stable. Other: No acute osseous or upper abdominal finding. IMPRESSION: No acute cardiopulmonary process. Reviewed, dictated and finalized at location K.
--- NOTE | ~2024-12-01 | CT_ITS ---
CT Scan of the Chest without Contrast: Clinical Indication: Cough, fever Technique: Contiguous sections were acquired throughout the chest without intravenous contrast. Dose reduction technique was used on this scan by utilizing automated exposure control and iterative recon struction technique. The dose-length product (DLP) was 437.39 mGy-cm. COMPARISON: 10/29/2024 Findings: Stable mediastinal lymphadenopathy as compared to prior exam. No aortic aneurysm. Coronary artery any cifications are present. No pericardial effusion. Small pleural effusions are present bilaterally. There is a groundglass opacity mild patchy consolidation involving the lingula. There is minimal patc hy airspace disease in the medial right middle and lower lobes. There is minimal groundglass opacity in the medial left lower lobe. Images through the upper abdomen reveal calcified gallstones. Impression: Patchy consolidation of groundglass opacity in the lingula, which more minimal involvement in the med ial lower lobes and medial right middle lobe. Findings are most compatible with pneumonia. Correlate for pulmonary edema. Small bilateral pleural effusions with mild left basilar atelectasis. Stable mediastinal lymphadenopathy, nonspecific. Cholelithiasis. Reviewed, dictated and finalized at [facility]. Impression: Patchy consolidation of groundglass opacity in the lingula, which more minimal involvement in the medial lower lobes and medial right middle lobe. Findings ar e most compatible with pneumonia. Correlate for pulmonary edema. Small bilateral pleural effusions with mild left basilar atelectasis. Stable mediastinal lymphadenopathy, nonspecific. Cholelithiasis.
--- NOTE | 2024-12-01 14:47 | ECG_ITS ---
Test Date: 2024-12-01 14:52:36 Measurements Intervals [place] Rate: 63 P: 53 AR: 165 QRS: 39 QRSD: 93 T: 26 QT: 437 QTc: 451 Interpretive Statements SINUS BRADYCARDIA WITH FREQUENT VENTRICULAR PREMATURE COMPLEXES NONCONDUCTED ATRIAL PREMATURE COMPLEX CONSIDER INFERIOR INFARCT, AGE INDETERMINATE BASELINE ARTIFACT- I, II, III, AVR, AVL, AVF, V4-V6 ABNORMAL ECG Compared to ECG 10/29/2024 20:06:26 NONCONDUCTED ATRIAL PREMATURE COMPLEX NOW PRESENT Electronically Signed On 12-01-2024 15:30:19 CDT by Home Preciado D.O.
--- NOTE | 2024-12-01 15:01 | ED_ITS ---
HPI - Nausea/Vomiting/Diarrhea General Chief complaint: Nausea/Vomiting/Diarrhea Stated complaint: cough Time Seen by Provider: 12/01/24 14:40 History of Present Illness HPI Narrative: 79-year-old male with history of hypertension, CKD on dialysis Monday, , Monday, diabetes, coronary disease. Patient presents to the emergency department with a cough. He states that the cough has been bothering him since Monday and nonproductive and he feels like he can clear the phlegm. Had an episode of posttussive emesis yesterday but not feeling nauseous or vomited today. No chest pain or chest discomfort, no abdominal pain or back pain. No fever or chills. Take Tylenol for headache prior to arrival. Denies any trauma or injuries, states he feels like he got sick after he went to dialysis yesterday and the family were running as the AC was off. Denies any other sick contacts or recent illnesses. Related Data Home Medications ?Medication ?Instructions ?Recorded ?Confirmed ?Last Taken ?Type amlodipine 10 mg tablet 20 mg PO DAILY 12/01/24 12/01/24 Unknown History carvedilol 25 mg tablet 25 mg PO Q12H 12/01/24 12/01/24 12/01/24 History colesevelam 625 mg tablet 625 mg PO BID 12/01/24 12/01/24 12/01/24 History ergocalciferol (vitamin D2) 1,250 1,250 mcg PO WEEKLY 12/01/24 12/01/24 Unknown History mcg (50,000 unit) capsule furosemide 20 mg tablet 20 mg PO DAILY 12/01/24 12/01/24 12/01/24 History insulin aspart 1 sliding scale dose subcut ACHS 12/01/24 12/01/24 Unknown History (niacinamide)(U-100) 100 unit/mL(3 mL) subcutaneous pen (Fiasp FlexTouch U-100 Insulin) insulin degludec 100 unit/mL (3 5 unit subcut QPM 12/01/24 12/01/24 Unknown History mL) subcutaneous pen (Tresiba FlexTouch U-100 insulin) pitavastatin calcium 4 mg tablet 4 mg PO DAILY 12/01/24 12/01/24 Unknown History ripretinib 50 mg tablet (Qinlock) 50 mg PO DAILY 12/01/24 12/01/24 Unknown History sodium bicarbonate 650 mg tablet 650 mg PO BID 12/01/24 12/01/24 Unknown History tamsulosin 0.4 mg capsule 0.4 mg PO HS 12/01/24 12/01/24 Unknown History Allergies Allergy/AdvReac Type Severity Reaction Status Date / Time No Known Allergies Allergy Verified 11/10/24 11:43 Review of Systems 2 Review of Systems: As reviewed above in HPI [facility] Past Medical History Medical History Type 2 diabetes mellitus Patellofemoral arthritis of left knee HTN (hypertension) CAD (coronary artery disease) 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, malignant Surgical History Surgical History S/P CABG x 5 Social History Social History Smoking status: Former smoker Smoking end date: 06/05/10 Alcohol intake: former Substance use: never Do You Feel Safe in your Home?: Yes Lack of Transportation: No Lack of Food: Never True Current Housing: I Have Housing Concerned About Future Housing: No Difficulty Paying Gas/Electric Bills: No Difficulty Paying for Meds: No Currently Unemployed: No Education: Trade/Vocational Certificate Difficulty w/ Childcare or Family Care: No Spiritual care concerns: No Exam 2 Narrative: GENERAL: Well-appearing, not any acute distress, coughing frequently throughout the evaluation. Dry cough. HEAD: [Normocephalic, atraumatic.] EYES: [PERRLA and EOMI.] ENT: Nares clear, no rhinorrhea or epistaxis. Mucous membranes moist. NECK: Supple. CHEST: [Clear to auscultation. No respiratory distress.] Right-sided IJ port without any overlying skin changes or signs of infection HEART: [Regular rate and rhythm]. No murmur heard. [Normal peripheral pulses.] ABDOMEN: [Soft, nondistended], [nontender], [No rigidity or guarding] EXTREMITIES: Normal range of motion. [No edema.] SKIN: Warm, dry, no rash. NEURO: [No focal deficits]. Alert and oriented [x3.] PSYCH: [Normal mood and affect.] Course Vital Signs Vital signs: Vital Signs Temperature 37.7 C H 12/01/24 14:44 Pulse Rate 73 12/01/24 14:44 Respiratory Rate 18 12/01/24 14:44 Blood Pressure 149/106 H 12/01/24 14:44 Pulse Oximetry 94 12/01/24 14:44 Oxygen Delivery Room Air 12/01/24 14:44 Temperature 37.5 C 12/02/24 20:00 Pulse Rate 73 12/02/24 21:45 Respiratory Rate 20 12/02/24 20:23 Blood Pressure 152/67 H 12/02/24 20:00 Pulse Oximetry 91 12/02/24 20:17 Oxygen Delivery Nasal Cannula 12/02/24 20:17 Oxygen Flow Rate 1 12/02/24 20:17 MDM - Nausea/Vomiting/Diarrhea MDM Narrative Medical decision making narrative: 79-year-old male with history of hypertension, diabetes, CKD on dialysis TTS, coronary disease. He presents to the emergency department for a nonproductive cough for last several days. No associated symptoms such as chest pain, abdominal pain, back pain, fever, chills. He was otherwise in his normal state of health. States that he feels he got sick during recent dialysis when the ACs was off and he was getting fans blowing on him. No sick contacts otherwise. He is borderline febrile here in triage with a temperature 37.7? orally. Saturating 94 % on room air, no tachycardia, or significant blood pressure concerns. Differential includes viral versus bacterial upper respiratory infection, bronchitis, bronchiolitis, pneumonia. Laboratory studies were drawn and a chest x-ray and EKG were obtained. Given his borderline fever and dialysis patient lactic acid and blood cultures also obtained but will hold off on empiric antibiotics without further testing at this time. No hemodynamic concerns requiring fluid resuscitation at this time. He was given cough suppressant medications and re-evaluated. Workup shows a leukocytosis of 19.7, anemia of 11.5 at baseline, normal platelet count. BUN and creatinine reflective of his normal end-stage renal disease. Normal potassium and normal lactic acid. Inflammatory markers are elevated including elevated CRP of 17.6. Urinalysis obtained as he still makes urine but negative for any signs of infection there. Blood cultures are sent and viral panel tested and negative. Chest x-ray shows no acute pulmonary disease. Patient's fever came down with Tylenol and he remains hemodynamically stable. Unclear source of patient's infective process but given that he is a dialysis patient he has high risk for other potential causes such as infected port or endocarditis. He remains on broad-spectrum antibiotics at this time and will be admitted to the hospitalist service. I discussed the case with the hospitalist team who accepted him to a telemetry monitored bed and patient comfortable with the plan and remains on broad coverage antibiotics at this time. Medical Records Attestation: I reviewed the patient's medical records. Lab Data Attestation: I reviewed the patient's lab results. 12/02/24 04:46 12/02/24 04:46 Labs: Lab Results 12/01/24 12/01/24 12/01/24 Range/Units 14:54 14:55 16:32 WBC 19.7 H (4.5-10.0) K/mm3 RBC 4.01 L (4.6-6.20) M/mm3 Hgb 11.5 L (14.0-18.0) g/dL Hct 36.1 L (42.0-52.0) % MCV 90.0 (80-100) fl MCH 28.7 (26-34) pg MCHC 31.9 L (32-36) g/dl RDW 14.7 H (11.5-14.5) % Plt Count 187 (150-375) k/mm3 MPV 10.4 (7.4-10.4) fl Immature Gran % (Auto) 0.7 H (0-0.5) % Neut % (Auto) 80.6 H (45.5-73.1) % Lymph % (Auto) 7.7 L (18.3-44.2) % [place] % (Auto) 7.7 (2.6-8.5) % Eos % (Auto) 2.7 (0-4.4) % Baso % (Auto) 0.6 (0.2-1.2) % Lymph # (Auto) 1.51 (0.9-3.2) K/mm3 [place] # (Auto) 1.5 H (0.1-0.6) K/mm3 Eos # (Auto) 0.5 H (0-0.3) K/mm3 Baso # (Auto) 0.1 (0.0-0.1) K/mm3 Abs Immat Gran (auto) 0.14 H (0.00-0.031) K/mm3 Absolute Neuts (auto) 15.9 H (1.3-6.7) K/mm3 Absolute Nucleated RBC 0.000 (0.0-0.012) K/mm3 Nucleated RBC % 0.0 (0.0-0.2) % Sodium 136 L (137-145) mmol/L Potassium 4.1 (3.4-5.0) mmol/L Chloride 101 (98-107) mmol/L Carbon Dioxide 23 (22-30) mmol/L Anion Gap 12 (4-12) mmol/L BUN 37 H (9-20) mg/dL Creatinine 5.25 H (0.7-1.3) mg/dL Estim Creat Clear Calc 13 ml/min Estimated GFR 11 L (59 - ) Glucose 173 H (65-110) mg/dL Lactic Acid 1.0 (0.7-2.0) mmol/L Calcium 8.3 L (8.4-10.2) mg/dL Phosphorus 3.7 (2.5-4.5) mg/dL Magnesium 2.0 (1.6-2.3) mg/dL Total Bilirubin 1.4 H (0.2-1.3) mg/dL AST 23 (17-59) U/L ALT 15 (6-50) U/L Alkaline Phosphatase 85 (38-126) U/L C-Reactive Protein 6.1 H (<1.0) mg/dL Total Protein 6.5 (6.3-8.2) g/dL Albumin 3.8 (3.5-5.1) g/dL Urine Color Yellow (Yellow) Urine Appearance Clear (Clear) Urine pH 8.0 (5.0-9.0) Ur Specific [place] 1.015 (1.001-1.035) Urine Protein 4+ H (Negative) mg/dL Urine Glucose (UA) 2+ H (Negative) mg/dL Urine Ketones Negative (Negative) mg/dL Ur Blood (Man) Negative (Negative) Urine Nitrate Negative (Negative) Urine Bilirubin Negative (Negative) Urine Urobilinogen 0.2 (<2.0) mg/dL Leukocyte Esterase Rfl Negative (Negative) KASI/UL Urine RBC 0-2 (0-2) /hpf Urine WBC 0-5 (0-3) /hpf Ur Squamous Epith Cells None seen (Few) /hpf Urine Bacteria None seen /hpf Urine Casts 0-2 Nasal MRSA (PCR) (NOT DETECTE) Influenza A (RT-PCR) Negative (Negative) Influenza B (RT-PCR) Negative (Negative) RSV (RT-PCR) Negative (Negative) SARS-CoV-2 RNA (RT-PCR) Negative (Negative) 12/01/24 Range/Units 16:40 WBC (4.5-10.0) K/mm3 RBC (4.6-6.20) M/mm3 Hgb (14.0-18.0) g/dL Hct (42.0-52.0) % MCV (80-100) fl MCH (26-34) pg MCHC (32-36) g/dl RDW (11.5-14.5) % Plt Count (150-375) k/mm3 MPV (7.4-10.4) fl Immature Gran % (Auto) (0-0.5) % Neut % (Auto) (45.5-73.1) % Lymph % (Auto) (18.3-44.2) % [place] % (Auto) (2.6-8.5) % Eos % (Auto) (0-4.4) % Baso % (Auto) (0.2-1.2) % Lymph # (Auto) (0.9-3.2) K/mm3 [place] # (Auto) (0.1-0.6) K/mm3 Eos # (Auto) (0-0.3) K/mm3 Baso # (Auto) (0.0-0.1) K/mm3 Abs Immat Gran (auto) (0.00-0.031) K/mm3 Absolute Neuts (auto) (1.3-6.7) K/mm3 Absolute Nucleated RBC (0.0-0.012) K/mm3 Nucleated RBC % (0.0-0.2) % Sodium (137-145) mmol/L Potassium (3.4-5.0) mmol/L Chloride (98-107) mmol/L Carbon Dioxide (22-30) mmol/L Anion Gap (4-12) mmol/L BUN (9-20) mg/dL Creatinine (0.7-1.3) mg/dL Estim Creat Clear Calc ml/min Estimated GFR (59 - ) Glucose (65-110) mg/dL Lactic Acid (0.7-2.0) mmol/L Calcium (8.4-10.2) mg/dL Phosphorus (2.5-4.5) mg/dL Magnesium (1.6-2.3) mg/dL Total Bilirubin (0.2-1.3) mg/dL AST (17-59) U/L ALT (6-50) U/L Alkaline Phosphatase (38-126) U/L C-Reactive Protein (<1.0) mg/dL Total Protein (6.3-8.2) g/dL Albumin (3.5-5.1) g/dL Urine Color (Yellow) Urine Appearance (Clear) Urine pH (5.0-9.0) Ur Specific [place] (1.001-1.035) Urine Protein (Negative) mg/dL Urine Glucose (UA) (Negative) mg/dL Urine Ketones (Negative) mg/dL Ur Blood (Man) (Negative) Urine Nitrate (Negative) Urine Bilirubin (Negative) Urine Urobilinogen (<2.0) mg/dL Leukocyte Esterase Rfl (Negative) KASI/UL Urine RBC (0-2) /hpf Urine WBC (0-3) /hpf Ur Squamous Epith Cells (Few) /hpf Urine Bacteria /hpf Urine Casts Nasal MRSA (PCR) Not detected (NOT DETECTE) Influenza A (RT-PCR) (Negative) Influenza B (RT-PCR) (Negative) RSV (RT-PCR) (Negative) SARS-CoV-2 RNA (RT-PCR) (Negative) Critical Care Time Critical Care Time Critical Care Time: Yes Total Critical Care Time: 35 Discharge Plan Discharge Clinical Impression: Fever of unknown origin (FUO), ESRD (end stage renal disease) on dialysis, Cough in adult Patient Disposition: Still a Patient Condition: Stable
[2024-12-01 15:06] LABS: Hematocrit 36.1 % (42.0-52.0); Hemoglobin 11.5 g/dL (14.0-18.0); Immature Granulocyte Percent A 0.7 % (0-0.5); Lymphocytes Absolute Auto 1.51 K/mm3 (0.9-3.2); Mean Corpuscular HGB Conc 31.9 g/dl (32-36); Mean Corpuscular Hemoglobin 28.7 pg (26-34); Mean Corpuscular Volume 90.0 fl (80-100); Nucleated Red Blood Cells Absolute Auto 0.000 K/mm3 (0.0-0.012); Nucleated Red Blood Cells Perc 0.0 % (0.0-0.2); Platelet Count Result 187 k/mm3 (150-375); Red Blood Count 4.01 M/mm3 (4.6-6.20); White Blood Count 19.7 K/mm3 (4.5-10.0)
[2024-12-01 15:14] LABS: Alanine Aminotransferase 15 U/L (6-50); Albumin Level 3.8 g/dL (3.5-5.1); Alkaline Phosphatase 85 U/L (38-126); Anion Gap 12 mmol/L (4-12); Aspartate Amino Transferase 23 U/L (17-59); Bilirubin,Total 1.4 mg/dL (0.2-1.3); Blood Urea Nitrogen 37 mg/dL (9-20); Calcium 8.3 mg/dL (8.4-10.2); Carbon Dioxide 23 mmol/L (22-30); Chloride 101 mmol/L (98-107); Estimated CRCL calculation 13 ml/min; Estimated Glomerular Filt Rate 11; Glucose 173 mg/dL (65-110); Potassium 4.1 mmol/L (3.4-5.0); Sodium 136 mmol/L (137-145); Total Protein 6.5 g/dL (6.3-8.2)
[2024-12-01] MEDS: ACETAMINOPHEN/CODEINE ELIXIR (*CRX) 120-12 MG/5 ML UDC PO (15:21)
[2024-12-01] MEDS: BENZONATATE 100 MG CAPSULE 200 MG PO (15:21)
[2024-12-01] MEDS: LACTATED RINGERS 500 ML 999 ML IV CONT (15:21)
[2024-12-01 15:45] LABS: Influenza A QL RT-PCR Negative (Negative); Influenza B QL RT-PCR Negative (Negative); RSV RNA, RT-PCR Negative (Negative); SARS-CoV-2 RNA PCR Negative (Negative)
[2024-12-01] MEDS: CEFEPIME 2 GM/NS 50 ML 2 GM/50 ML BAG IVPB (16:44)
[2024-12-01 16:46] LABS: Add Urine Microscopic? YES; Appearance Urine Clear (Clear); Glucose Urine UA 2+ mg/dL (Negative); Leukocyte Esterase Ur Negative LEU/UL (Negative); Nitrate Urine Negative (Negative); Non Pathogenic Casts 0-2; Specific Grav Ur 1.015 (1.001-1.035)
--- NOTE | 2024-12-01 17:18 | P.HP_ITS ---
H&P: HPI History of Present Illness Date/Time: 12/01/24 17:18 Chief Complaint: Fever and cough Narrative: Navdeep is a male patient admitted for evaluation of fever and cough. He reports onset of symptoms of not feeling well around (today is Monday), with fever and coughing starting Monday. He attended dialysis on Monday without issues and did not experience cough during dialysis. He took Tylenol prior to hospital arrival today but continued to have fever. ER found WBCs 19.7. Chest X- ray was normal. He denies chest pain, palpitations, or fluttering during coughing episodes. He has a dialysis port in his chest with no signs of infection. He reports some chest tightness and wheezing. The patient notes this is the first time he has coughed since arriving at the hospital. Patient does not usually have problems with a cough. He also has a left foot problem requiring a boot, with pain but no signs of infection or redness. He has a history of a tumor between two bones in the left leg, present for years, and had Doppler and CT scans a couple of weeks ago at [facility] for foot pain evaluation, as he has gotten to where he cannot walk on it. 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 Velazquez resected. Other history includes diabetes, hypertension, coronary artery disease (history of stent and five-vessel bypass), and end-stage renal disease on dialysis. He takes an oral cancer medication. He has dental implants. 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 He has minimal mobility at home despite Tylenol for pain and the boot. 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, malignant Surgical History Surgical History S/P CABG x 5 Social History Social History Smoking status: Former smoker Smoking end date: 06/05/10 Alcohol intake: never Do You Feel Safe in your Home?: Yes Lack of Transportation: No Lack of Food: Never True Current Housing: I Have Housing Concerned About Future Housing: No Difficulty Paying Gas/Electric Bills: No Difficulty Paying for Meds: No Currently Unemployed: No Education: High School Diploma/GED Meds Home Medications and Allergies Home Medications ?Medication ?Instructions ?Recorded ?Confirmed ?Type hydralazine 100 mg tablet 100 mg PO BID #180 tabs 10/15/24 12/01/24 Rx amlodipine 10 mg tablet 20 mg PO DAILY 12/01/24 12/01/24 History carvedilol 25 mg tablet 25 mg PO Q12H 12/01/24 12/01/24 History colesevelam 625 mg tablet 625 mg PO BID 12/01/24 12/01/24 History ergocalciferol (vitamin D2) 1,250 1,250 mcg PO WEEKLY 12/01/24 12/01/24 History mcg (50,000 unit) capsule furosemide 20 mg tablet 20 mg PO DAILY 12/01/24 12/01/24 History insulin aspart 1 sliding scale dose subcut ACHS 12/01/24 12/01/24 History (niacinamide)(U-100) 100 unit/mL(3 mL) subcutaneous pen (Fiasp FlexTouch U-100 Insulin) insulin degludec 100 unit/mL (3 5 unit subcut QPM 12/01/24 12/01/24 History mL) subcutaneous pen (Tresiba FlexTouch U-100 insulin) pitavastatin calcium 4 mg tablet 4 mg PO DAILY 12/01/24 12/01/24 History ripretinib 50 mg tablet (Qinlock) 50 mg PO DAILY 12/01/24 12/01/24 History sodium bicarbonate 650 mg tablet 650 mg PO BID 12/01/24 12/01/24 History tamsulosin 0.4 mg capsule 0.4 mg PO HS 12/01/24 12/01/24 History Allergies Allergy/AdvReac Type Severity Reaction Status Date / Time No Known Allergies Allergy Verified 11/10/24 11:43 Vital Signs Vital Signs - 24 hr 12/01/24 14:44 12/01/24 15:08 12/01/24 15:15 Temperature 37.7 C H Pulse Rate 73 79 79 Respiratory Rate 18 29 H 20 Blood Pressure 149/106 H Pulse Oximetry 94 94 94 Oxygen Delivery Room Air 12/01/24 15:20 12/01/24 15:30 12/01/24 15:45 Temperature Pulse Rate 83 75 73 Respiratory Rate 16 16 27 H Blood Pressure 169/51 H Pulse Oximetry 98 96 96 Oxygen Delivery 12/01/24 15:48 12/01/24 16:01 12/01/24 16:16 Temperature Pulse Rate 85 74 71 Respiratory Rate 27 H 14 15 Blood Pressure 168/62 H Pulse Oximetry 96 96 Oxygen Delivery 12/01/24 16:31 Temperature Pulse Rate 85 Respiratory Rate 19 Blood Pressure Pulse Oximetry 97 Oxygen Delivery Exam Narrative: GENERAL: Somewhat ill-appearing tachypnea, mild dyspnea and cough HEAD: Normocephalic, atraumatic. ENT:? Mucous membranes moist. PERRL CHEST: Minimal crackles, cough noted, tachypnea with mild dyspnea at rest. Right IJ tunneled dialysis line in place, no surrounding erythema/tenderness HEART: Regular rate and rhythm. ? Normal peripheral pulses. ABDOMEN: Soft, nontender, nondistended. EXTREMITIES: Normal range of motion. Bilateral pitting edema, left foot more swollen with plantar tenderness (unable to walk due to pain, even in a walking boot) with no erythema or open wounds. SKIN: Warm dry normal color NEURO: Alert and oriented x3. Moves all extremities well H&P: Results Labs Labs: Short CBC 12/01/24 Range/Units 14:54 WBC 19.7 H (4.5-10.0) K/mm3 Hgb 11.5 L (14.0-18.0) g/dL Hct 36.1 L (42.0-52.0) % Plt Count 187 (150-375) k/mm3 BMP 12/01/24 14:54 Sodium 136 L Potassium 4.1 Chloride 101 Carbon Dioxide 23 BUN 37 H Creatinine 5.25 H Glucose 173 H Calcium 8.3 L Liver Function 12/01/24 Range/Units 14:54 Total Bilirubin 1.4 H (0.2-1.3) mg/dL AST 23 (17-59) U/L ALT 15 (6-50) U/L Alkaline Phosphatase 85 (38-126) U/L Albumin 3.8 (3.5-5.1) g/dL Urine 12/01/24 Range/Units 16:32 Urine Color Yellow (Yellow) Urine Appearance Clear (Clear) Urine pH 8.0 (5.0-9.0) Ur Specific [place] 1.015 (1.001-1.035) Urine Protein 4+ H (Negative) mg/dL Urine Glucose (UA) 2+ H (Negative) mg/dL Pulse Oximetry SpO2 results: 94-98% on room air Attestation: I personally reviewed and interpreted this pulse oximetry as follows: Interpretation: no need for supplemental oxygenation at this time ECG Attestation: I personally reviewed and interpreted this ECG as follows: ECG completion date: 12/01/24 ECG completion time: 14:52 Prior ECG tracings: available for review Interpretation: Sinus rhythm with frequent PVCs, rate of 63 ER 165 QRS duration 93 QTC 451 QRS axis 39 Imaging Chest x-ray: Radiologist's impression: EXAMINATION: XR chest 1V portable Exam Date/Time: 12/01/2024 15:25 CDT HISTORY: cough Comparison: 10/29/2024. RESULT: Lines, tubes, and devices: Intact sternotomy wires. Right IJ dialysis catheter terminating in the right atrium. Coronary stenting. Lungs and pleura: Clear. Cardiomediastinal silhouette: Stable. Other: No acute osseous or upper abdominal finding. IMPRESSION: No acute cardiopulmonary process. Reviewed, dictated and finalized at location K. Assessment and Plan Assessment and plan (1) Fever of unknown origin (FUO): Code(s): R50.9 - Fever, unspecified Status: Acute Assessment and Plan: -Fever on arrival to ER with associated acute cough -Started feeling ill 3 days ago on evening 11/28 -[place] fine during the day on Wednesday 11/29 but fever/cough in evening -No cough at Dialysis on Monday but returned after getting home -[place] really bad today and unable to stop coughing -No prior events like this -CXR no evident pneumonia -UA no evient infection -Blood cultures pending -Right IJ Dialysis catheter in place with no surrounding signs of infection -Flu/Covid/RSV negative -Ordered send out respiratory pathogen panel -Not hypoxic, not tachycardic, no hemoptysis, low likelihood of PE -Negative venous ultrasound of legs a couple weeks ago at [facility] in [place] per patient and -Left foot swelling without erythema or open wounds, painful to bear weight (2) Cough in adult: Code(s): R05.9 - Cough, unspecified Status: Acute Assessment and Plan: -Ordered Robitussin, Duonebs, Lasix -When patient sits up and leans forward and down he no longer coughs (3) Swelling of left foot: Code(s): M79.89 - Other specified soft tissue disorders Status: Acute Assessment and Plan: -Pain with putting pressure on foot -Bilateral leg swelling similar to each other but left foot more swollen than right foot -On oral furosemide 20 mg daily at home -Ordered IV furosemide now and daily instead -Patient still makes urine even though he is on dialysis (4) Unable to ambulate: Code(s): R26.2 - Difficulty in walking, not elsewhere classified Status: Acute Assessment and Plan: -Due to left foot pain/swelling -Walking boot present -Upcoming appointment with Dr. Stone in the office on MondayDecember 03. 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, malignant: Code(s): C49.A3 - Gastrointestinal stromal tumor of small intestine Status: Chronic Assessment and Plan: -Continue home medications, no GI symptoms reported or noted at this time (6) ESRD (end stage renal disease) on dialysis: Code(s): N18.6 - End stage renal disease; Z99.2 - Dependence on renal dialysis Status: Chronic Assessment and Plan: -Monday, , Monday dialysis -Consult Nephrology tomorrow to plan dialysis on Monday if still admitted (7) S/P CABG x 5: Code(s): Z95.1 - Presence of aortocoronary bypass graft Status: Chronic Assessment and Plan: -Known history, no chest pain or dysrhythmia at this time (8) HTN (hypertension): Code(s): I10 - Essential (primary) hypertension Status: Chronic Assessment and Plan: -Blood pressure elevated on admission, likely missed a dose of medications -Resume home antihypertensive medications -ER gave 500 mL fluid bolus, IV furosemide given (9) Type 2 diabetes mellitus: Qualifiers: Chronic kidney disease stage: on chronic dialysis Diabetes mellitus complication detail: with chronic kidney disease Diabetes mellitus complication status: with kidney complications 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 Qualified Code(s): E11.22 - Type 2 diabetes mellitus with diabetic chronic kidney disease; N18.6 - End stage renal disease; Z79.4 - ocean transportation intermediary (current) use of insulin; Z99.2 - Dependence on renal dialysis Code(s): E11.9 - Type 2 diabetes mellitus without complications Status: Chronic Assessment and Plan: -Renal diet with ACHS fingerstick glucose and SSI -Continue basal insulin 5 units HS Quality VTE Prophylaxis VTE prophylaxis: pharmacologic ordered (Heparin) Hospitalist [facility] Advance Care Plan I have confirmed that the patient's Advanced Care Plan is present, code status is documented, or surrogate decision maker is listed in patient medical record.: Yes Medication Reconciliation I have utilized all available resources to obtain, update and review the patients current medications (includes all prescriptions, OTC, herbals, cannabis, and nutritional supplements).: Yes
[2024-12-01] MEDS: VANCOMYCIN 2,000 MG/NS 500 ML 2,000 MG/500 ML BAG 250 MG IVPB (17:33)
[2024-12-01 18:11] LABS: MRSA (PCR) NOT DETECTED (NOT DETECTE)
--- NOTE | 2024-12-01 19:10 | PC.NURSE ---
Report received from MANUEL George. gave patient box lunch. Assumed care of patient at this time.
--- NOTE | 2024-12-01 20:16 | ADMGEN ---
This patient, Navdeep Payton, was admitted to Medical Room 249-01. Patient/family oriented to hospital policies and general routines including ID bracelet, bed and alarms, visiting hours, pain management, procedures, bathroom and other care routines, personal items, smoking policy, room service/diet, and visiting hours. Information on how to activate the Rapid Response Team has been discussed. Patient/Family are encouraged to report perceived risks to care and to ask questions if they do not understand what they are told or what they should do.
[2024-12-01 20:17] LABS: CRP 6.1 mg/dL (<1.0); Magnesium 2.0 mg/dL (1.6-2.3)
[2024-12-01 21:02] LABS: Procalcitonin 0.5 ng/mL
[2024-12-01] MEDS: FUROSEMIDE INJ 40 MG/4 ML VIAL 20 MG IV PUSH (21:35)
[2024-12-01] MEDS: metroNIDAZOLE 500 MG/ISO 100ML 500 MG/100 ML BAG 100 MG IVPB (21:35)
[2024-12-01] MEDS: TAMSULOSIN HCL 0.4 MG CAPSULE PO (21:35)
[2024-12-01] MEDS: SODIUM BICARBONATE TAB 650 MG TABLET PO (21:36)
[2024-12-01] MEDS: ONDANSETRON INJ 4 MG/2 ML VIAL IV PUSH (23:37)
[2024-12-02] VITALS (20 sets, daily range): BP systolic 123–154; BP diastolic 45–67; PULSE 53–81; RESP 16–20; TEMP 36.2–37.7; O2SAT 91–99
--- NOTE | 2024-12-02 | ECHO_ITS ---
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 Staff Referring Physician: Matt Calderón Chair Springer: Bernie Agrawal Attending Provider: Yadi Ramirez Contrast/Agitated Saline Contrast/Ag. Saline: Definity Amount: 2.00 ml Administered By: Bernie Agrawal Existing IV Access: Yes IV Access Condition: patent with no signs of infiltration Summary 1. Left ventricular systolic function is normal, estimated at 60-65. 2. The left ventricular diastolic function is abnormal. 3. Left atrial chamber dimension is mildly enlarged. 4. There is trace mitral valve regurgitation. 5. There is trace tricuspid valve regurgitation. 6. Moderate pulmonary hypertension, estimated pulmonary arterial systolic pressure is 45 mmHg. Left Ventricle Left ventricular chamber dimension is normal. Left ventricular systolic function is normal, estimated at 60-65. There is no increased left ventricular wall thickness. Left ventricular septal wall motion is normal. The left ventricular diastolic function is abnormal. Right Ventricle Right ventricular chamber dimension is normal. Right ventricular systolic function is normal. Left Atria Left atrial chamber dimension is mildly enlarged. Right Atria Right atrial chamber dimension is normal. Aortic Valve The aortic valve is trileaflet. There is no aortic valve sclerosis. There is no aortic valve stenosis. There is no aortic valve regurgitation. There is mild aortic valve calcification. Pulmonic Valve The pulmonic valve is normal. There is no pulmonic valve stenosis. There is no pulmonic regurgitation. Mitral Valve The mitral valve has normal leaflets. There is no mitral valve stenosis. There is trace mitral valve regurgitation. Tricuspid Valve The tricuspid valve leaflets are normal. There is no significant tricuspid valve stenosis. There is trace tricuspid valve regurgitation. Moderate pulmonary hypertension, estimated pulmonary arterial systolic pressure is 45 mmHg. Pericardium/Pleural The pericardium appears normal. There is no pericardial effusion. Inferior Vena Cava Dilated inferior vena cava with >50% collapse upon inspiration consistent with elevated right atrial pressure, 10 mmHg. Aorta The aortic root size at the sinus of Valsalva is normal. The prox ascending aorta size is normal. Left Ventricular Outflow Tract Name Value Normal LVOT 2D LVOT Diameter 2.0 cm LVOT Doppler LVOT Peak Velocity 146 cm/s LVOT Peak Gradient 9 mmHg LVOT Mean Gradient 4 mmHg LVOT VTI 33 cm LVOT VTI/AV VTI Ratio 0.8 LVOT Stroke Volume 102 ml LVOT CO 5.6 l/min LVOT CI 2.5 l/min/m2 Pulmonic Valve Name Value Normal PV Doppler PV Peak Velocity 131 cm/s PV Peak Gradient 7 mmHg Mitral Valve Name Value Normal MV Doppler MV Peak Gradient 8 mmHg MV Mean Gradient 2 mmHg MV Area (Cont Eq VTI) 1.8 cm2 MV Diastolic Function MV E Peak Velocity 127 cm/s MV A Peak Velocity 78 cm/s MV E/A 1.6 MV Decel Time (PW) 221 ms Tricuspid Valve Name Value Normal TV Regurgitation Doppler TR Peak Velocity 297 cm/s TR Peak Gradient 35 mmHg Estimated PAP/RSVP RA Pressure 10 mmHg <=5 PA Systolic Pressure 45 mmHg <36 RV Systolic Pressure 45 mmHg <36 TV Annular TDI TV Lateral Samira s' Velocity 10.8 cm/s >=9.5 Aortic Valve Name Value Normal AV Doppler AV Peak Velocity 192 cm/s AV Peak Gradient 15 mmHg AV Mean Gradient 7 mmHg AV VTI 44 cm AV Area (Cont Eq VTI) 2.3 cm2 >=3.0 AV Area (Cont Eq Aftab) 2.3 cm2 AV DI (Aftab) 0.76 AV Regurgitation 2D LVOT Area 3.0 cm2 Ventricles Name Value Normal LV Dimensions 2D/MM IVS Diastolic Thickness (2D) 1.0 cm 0.6-1.0 LVID Diastole (2D) 5.5 cm 4.2-5.8 LVIW Diastolic Thickness (2D) 1.0 cm 0.6-1.0 LVID Systole (2D) 3.5 cm 2.5-4.0 LVOT Diameter 2.0 cm LV Mass (2D Cubed) 219.13 g 88.00-224.00 LV Mass Index (2D Cubed) 100 g/m2 49-115 Relative Wall Thickness (2D) 0.37 <=0.42 LV Fractional Shortening/Ejection Fraction 2D/MM LV Fractional Shortening (2D) 38 % 25-43 LV EF (2D Teichholz) 67 % LV Diastolic Volume (4C MOD) 143 ml LV EF (4C MOD) 61 % LV Diastolic Volume (2C MOD) 172 ml LV EF (2C MOD) 65 % LV Diastolic Volume (BP MOD) 159 ml 62-150 LV Diastolic Volume Index (BP MOD) 73 ml/m2 34-74 LV Systolic Volume (BP MOD) 60 ml 21-61 LV Systolic Volume Index (BP MOD) 27 ml/m2 11-31 LV EF (BP MOD) 62 % 52-72 LV Diastolic Length (4C) 9.0 cm LV Systolic Length (4C) 7.1 cm LV Stroke Volume (4C MOD) 87 ml Atria Name Value Normal LA Dimensions LA Volume (4C A-L) 125 ml LA Volume (BP A-L) 125 ml RA Dimensions RA Systolic Major Huntington Length (4C) 5.0 cm 2.1-2.7 RA Area (4C) 16.9 cm2 <=18.0 Report Signatures
[2024-12-02] MEDS: IPRATROPIUM 0.5 MG/ALBUTEROL SULFATE 2.5 MG AMPUL.NEB 3 ML INHALATION ×4 (03:08→20:16)
[2024-12-02 05:12] LABS: Hematocrit 34.2 % (42.0-52.0); Hemoglobin 10.9 g/dL (14.0-18.0); Immature Granulocyte Percent A 0.7 % (0-0.5); Lymphocytes Absolute Auto 1.40 K/mm3 (0.9-3.2); Mean Corpuscular HGB Conc 31.9 g/dl (32-36); Mean Corpuscular Hemoglobin 29.0 pg (26-34); Mean Corpuscular Volume 91.0 fl (80-100); Nucleated Red Blood Cells Absolute Auto 0.000 K/mm3 (0.0-0.012); Nucleated Red Blood Cells Perc 0.0 % (0.0-0.2); Platelet Count Result 158 k/mm3 (150-375); Red Blood Count 3.76 M/mm3 (4.6-6.20); White Blood Count 17.1 K/mm3 (4.5-10.0)
[2024-12-02 05:33] LABS: Alanine Aminotransferase 15 U/L (6-50); Albumin Level 3.4 g/dL (3.5-5.1); Alkaline Phosphatase 65 U/L (38-126); Anion Gap 13 mmol/L (4-12); Aspartate Amino Transferase 21 U/L (17-59); Bilirubin,Total 1.4 mg/dL (0.2-1.3); Blood Urea Nitrogen 42 mg/dL (9-20); Calcium 7.9 mg/dL (8.4-10.2); Carbon Dioxide 21 mmol/L (22-30); Chloride 102 mmol/L (98-107); Estimated CRCL calculation 10 ml/min; Estimated Glomerular Filt Rate 9; Glucose 182 mg/dL (65-110); Magnesium 2.0 mg/dL (1.6-2.3); Potassium 4.4 mmol/L (3.4-5.0); Sodium 136 mmol/L (137-145); Total Protein 6.2 g/dL (6.3-8.2)
[2024-12-02 05:49] LABS: CRP 17.6 mg/dL (<1.0)
[2024-12-02 05:58] LABS: Procalcitonin 1.6 ng/mL
[2024-12-02] MEDS: metroNIDAZOLE 500 MG/ISO 100ML 500 MG/100 ML BAG 100 MG IVPB ×2 (06:17→13:45)
--- NOTE | 2024-12-02 09:05 | PM.CNNEP ---
Assessment and Plan Assessment and plan (1) End stage renal disease: Code(s): N18.6 - End stage renal disease Status: Chronic Assessment and Plan: plan HD tomorrow continue //Monday dialysis schedule while hospitalized follow electrolytes, volume status, and clearance (2) Low grade fever: Code(s): R50.9 - Fever, unspecified Status: Acute Assessment and Plan: as noted in the ER (37.7?/99.9?) noted again at 11:37PM on 12/01 and 3:47AM on 12/02 etiology no clear: CXR with no evident pneumonia UA with no evidence infection blood cultures pending viral testing for influenza/COVID/RSV negative respiratory pathogen penal pending continue supportive therapy (3) Cough: Code(s): R05.9 - Cough, unspecified Status: Acute Assessment and Plan: non-productive sputum cultures and respiratory panel pending on Robitussin and nebulizer treatments CXR results noted consider further imaging (chest CT?) (4) Anemia: Code(s): D64.9 - Anemia, unspecified Status: Acute Assessment and Plan: due to ESRD Epogen with HD follow trend of H/H (5) Hypertension: Code(s): I10 - Essential (primary) hypertension Status: Chronic Assessment and Plan: fluctuating continue home medications follow trend of hemodynamics (6) Type 2 diabetes mellitus: Qualifiers: Chronic kidney disease stage: on chronic dialysis Diabetes mellitus complication detail: with chronic kidney disease Diabetes mellitus complication status: with kidney complications Diabetes mellitus 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 Thank you for allowing me to participate in the care of this patient. History of Present Illness Reason for Consult Consult date: 12/02/24 Reason for consult: end stage renal disease Chief Complaint Chief complaint: Cough and fever History of Present Illness Narrative: The patient is a 79-year-old male past medical history as outlined below presented to [facility] Emergency Room do a persistent cough. The patient states that the cough has been present since last if not longer. His cough is nonproductive but he feels like there is phlegm in the back of his throat that he can get rid. He does report an episode of vomiting following the cough but denies any issues with regard to nausea or any further episodes of vomiting earlier today. He denies any chest pain or chest discomfort, abdominal pain, back pain, fevers, chills, melena, hematochezia, or diarrhea. He reports that he feels like the cough and illness seem to start after his dialysis session on - the AC system was not working so there multiple portable fans blowing in the treatment room at the dialysis center and he reports one of the fans was blowing directly at him. He denies any other sick contacts or recent illnesses at this time. Given the persistence of the cough, he presented to the emergency room for further assessment. Workup and evaluation emergency room demonstrated the patient be hemodynamically stable but with a low-grade fever of 37.7? but with stable oxygen saturations and no apparent distress. Routine labs were notable for a leukocytosis of 19.7, anemia of 11.5, normal platelet count as well as a BUN and creatinine reflective of his known history ofl end-stage renal disease. His potassium and lactic acid were normal. Inflammatory markers are elevated including a CRP of 17.6. Urinalysis was negative for any signs of infection Viral panel was negative his chest x-ray shows no acute pulmonary disease. Given the concerns for possible systemic infection, appropriate blood cultures were obtained and he was initiated on broad-spectrum antibiotics. He was subsequently admitted to the hospital for further evaluation therapy. Since his admission, he still has been on off cough that appears nonproductive and states he really does not feel any significantly better in comparison to admission. Renal consultation is requested due to his end-stage renal disease. The patient normally dialyzes on a Monday, , Monday dialysis schedule at [facility] in [facility] under the care of Dr. Onofre Aguilar. His end-stage renal disease is presumably secondary to his known history of hypertension, diabetes, vascular disease and age-related change. He was following with Nephrology at [facility] once dialysis was initiated, his care was transferred to Dr. Aguilar since he lives in this area. He currently dialyzes through a tunneled dialysis catheter and his overall dialysis treatments have been uneventful as far as I am aware. He is due for dialysis tomorrow. Currently, at the time my evaluation, he does not appear to be in any acute distress. Review of Systems Review of Systems: As per HPI. 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, malignant Patellofemoral arthritis of left knee Surgical History Surgical History S/P CABG x 5 Social History Social History Smoking status: Former smoker Smoking end date: 06/05/10 Alcohol intake: former Substance use: never Do You Feel Safe in your Home?: Yes Lack of Transportation: No Lack of Food: Never True Current Housing: I Have Housing Concerned About Future Housing: No Difficulty Paying Gas/Electric Bills: No Difficulty Paying for Meds: No Currently Unemployed: No Education: Trade/Vocational Certificate Difficulty w/ Childcare or Family Care: No Spiritual care concerns: No Meds Home Medications and Allergies Home Medications ?Medication ?Instructions ?Recorded ?Confirmed ?Type hydralazine 100 mg tablet 100 mg PO BID #180 tabs 10/15/24 12/01/24 Rx amlodipine 10 mg tablet 20 mg PO DAILY 12/01/24 12/01/24 History carvedilol 25 mg tablet 25 mg PO Q12H 12/01/24 12/01/24 History colesevelam 625 mg tablet 625 mg PO BID 12/01/24 12/01/24 History ergocalciferol (vitamin D2) 1,250 1,250 mcg PO WEEKLY 12/01/24 12/01/24 History mcg (50,000 unit) capsule furosemide 20 mg tablet 20 mg PO DAILY 12/01/24 12/01/24 History insulin aspart 1 sliding scale dose subcut ACHS 12/01/24 12/01/24 History (niacinamide)(U-100) 100 unit/mL(3 mL) subcutaneous pen (Fiasp FlexTouch U-100 Insulin) insulin degludec 100 unit/mL (3 5 unit subcut QPM 12/01/24 12/01/24 History mL) subcutaneous pen (Tresiba FlexTouch U-100 insulin) pitavastatin calcium 4 mg tablet 4 mg PO DAILY 12/01/24 12/01/24 History ripretinib 50 mg tablet (Qinlock) 50 mg PO DAILY 12/01/24 12/01/24 History sodium bicarbonate 650 mg tablet 650 mg PO BID 12/01/24 12/01/24 History tamsulosin 0.4 mg capsule 0.4 mg PO HS 12/01/24 12/01/24 History amoxicillin 250 mg-potassium 1 tablet PO .Q12 #6 tabs 12/06/24 Rx clavulanate 125 mg tablet aspirin 81 mg tablet,delayed 81 mg PO QAM #30 tabs 12/06/24 Rx release benzonatate 100 mg capsule 200 mg (2 x 100 mg) PO TID #30 caps 12/06/24 Rx guaifenesin 600 mg tablet, 1,200 mg (2 x 600 mg) PO Q12HR #20 12/06/24 Rx extended release 12 hr (Mucus tabs Relief ER) loratadine 10 mg tablet 10 mg PO QHS #30 tabs 12/06/24 Rx prednisone 20 mg tablet 40 mg (2 x 20 mg) PO DAILY@0800 #6 12/06/24 Rx tabs Allergies Allergy/AdvReac Type Severity Reaction Status Date / Time No Known Allergies Allergy Verified 11/10/24 11:43 Vital Signs Vital Signs Temp Pulse Resp BP Pulse Ox O2 Del Method 12/02/24 08:10 97.5 F L 60 20 154/55 H 99 Room Air 12/02/24 08:07 63 20 12/02/24 08:00 60 12/02/24 07:58 61 20 12/02/24 07:58 93 Room Air 12/02/24 04:00 68 12/02/24 03:46 99.9 F H 69 18 123/47 L 91 12/02/24 03:10 96 Room Air 12/02/24 03:09 70 18 12/02/24 00:00 68 12/01/24 23:37 99.8 F H 51 L 16 161/44 H 93 12/01/24 21:35 79 12/01/24 20:15 Room Air 12/01/24 20:09 79 22 H 97 Room Air 12/01/24 20:00 85 12/01/24 19:39 99.6 F 79 22 H 178/99 H 97 12/01/24 19:30 99.4 F 87 20 180/63 H 94 12/01/24 19:15 99.6 F 77 18 174/66 H 97 12/01/24 19:01 78 27 H 98 12/01/24 18:00 74 20 175/86 H 96 12/01/24 17:45 76 15 94 12/01/24 17:30 73 21 H 96 12/01/24 17:24 75 29 H 97 12/01/24 17:00 74 14 97 12/01/24 16:45 74 22 H 96 12/01/24 16:31 85 19 97 12/01/24 16:16 71 15 96 12/01/24 16:01 74 14 96 12/01/24 15:48 85 27 H 168/62 H 12/01/24 15:45 73 27 H 96 12/01/24 15:30 75 16 96 12/01/24 15:20 83 16 169/51 H 98 12/01/24 15:15 79 20 94 12/01/24 15:08 79 29 H 94 12/01/24 14:44 99.8 F H 73 18 149/106 H 94 Room Air Exam Narrative: GENERAL APPEARANCE: elderly but well developed well nourished male in no acute distress HEENT: normocephalic, atraumatic, normal conjunctiva and sclera, nares patient NECK: no lymphadenopathy, thyromegaly, or JVD MOUTH: normal lips, teeth, and gums CARDIOVASCULAR: RRR, normal S1 and S2, no rub RESPIRATORY: coarse with a few bibasilar crackles ABDOMEN: soft, nontender, nondistended, positive bowel sounds present EXTREMITIES: no evidence of cyanosis, clubbing, 1+ edema (more so in left foot) NEUROLOGICAL: alert and oriented x 3; CN II - XII intact bilaterally; no focal deficits noted Results Lab Results 12/06/24 04:58 12/06/24 04:58 Lab results: Most recent lab results Calcium 7.9 mg/dL (8.4-10.2) L 12/02/24 04:46 Phosphorus 4.3 mg/dL (2.5-4.5) 12/02/24 04:46 Magnesium 2.0 mg/dL (1.6-2.3) 12/02/24 04:46
[2024-12-02] MEDS: FUROSEMIDE INJ 40 MG/4 ML VIAL 20 MG IV PUSH (09:34)
[2024-12-02] MEDS: SODIUM BICARBONATE TAB 650 MG TABLET PO ×2 (09:35→17:29)
--- NOTE | 2024-12-02 12:03 | PM.IMPN ---
Progress Note: A&P Assessment and Plan (1) Fever of unknown origin (FUO): Code(s): R50.9 - Fever, unspecified Status: Acute Assessment and Plan: -Fever on arrival to ER with associated acute cough. Started feeling ill 3 days ago on evening 11/28 -CXR no evident pneumonia -UA no evidence infection -Blood cultures pending -Right IJ Dialysis catheter in place with no surrounding signs of infection. Plan on dialysis tomorrow. -Flu/Covid/RSV negative -Ordered send out respiratory pathogen panel -Sputum culture order. -Not hypoxic, not tachycardic, no hemoptysis, low likelihood of PE -Negative venous ultrasound of legs a couple weeks ago at [facility] in [place] per patient and -Left foot swelling without erythema or open wounds, painful to bear weight -Order Echocardiogram due to b/l lower extremity swelling and cough. (2) Cough in adult: Code(s): R05.9 - Cough, unspecified Status: Acute Assessment and Plan: -Ordered Robitussin, Duonebs, Lasix -When patient sits up and leans forward and down he no longer coughs -Sputum culture and respiratory panel ordered. -BC pending. (3) Swelling of left foot: Code(s): M79.89 - Other specified soft tissue disorders Status: Acute Assessment and Plan: -Pain with putting pressure on foot -Bilateral leg swelling similar to each other but left foot more swollen than right foot -Continue home furosemide 20 mg daily -Patient still makes urine even though he is on dialysis (4) Unable to ambulate: Code(s): R26.2 - Difficulty in walking, not elsewhere classified Status: Acute Assessment and Plan: -Due to left foot pain/swelling -Walking boot present -Upcoming appointment with Dr. Stone in the office on MondayDecember 03. 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, malignant: Code(s): C49.A3 - Gastrointestinal stromal tumor of small intestine Status: Chronic Assessment and Plan: -Continue home medications, no GI symptoms reported or noted at this time (6) ESRD (end stage renal disease) on dialysis: Code(s): N18.6 - End stage renal disease; Z99.2 - Dependence on renal dialysis Status: Chronic Assessment and Plan: -Monday, , Monday dialysis -Consult Nephrology tomorrow to plan dialysis on Monday if still admitted (7) S/P CABG x 5: Code(s): Z95.1 - Presence of aortocoronary bypass graft Status: Chronic Assessment and Plan: -Known history, no chest pain or dysrhythmia at this time -Echo ordered (8) HTN (hypertension): Code(s): I10 - Essential (primary) hypertension Status: Chronic Assessment and Plan: -Blood pressure elevated on admission, likely missed a dose of medications -Resume home antihypertensive medications (9) Type 2 diabetes mellitus: Qualifiers: Diabetes mellitus milk route deliverer insulin use: with milk route deliverer use Diabetes mellitus complication status: with kidney complications Diabetes mellitus complication detail: with chronic kidney disease Chronic kidney disease stage: on chronic dialysis Qualified Code(s): E11.22 - Type 2 diabetes mellitus with diabetic chronic kidney disease; N18.6 - End stage renal disease; Z79.4 - half-way (current) use of insulin; Z99.2 - Dependence on renal dialysis Code(s): E11.9 - Type 2 diabetes mellitus without complications Status: Chronic Assessment and Plan: -Renal diet with ACHS fingerstick glucose and SSI -Continue basal insulin 5 units HS Subjective Date/time seen: 12/02/24 12:03 Interval history: This is a 79-year-old male that is in the hospital due to fever and cough. It is unknown why a he has a fever. His chest x-ray and urine are clear. His temperature today is 97.5. He was not requiring any supplemental oxygen. His white blood cell count is 17.1. He states that he feels fine today. Blood cultures are pending. He does have bilateral lower extremity edema and his cough seems to worsen when lying down flat. I have ordered an echo today due to this. He is still having a cough but it is nonproductive. Exam Narrative: GENERAL: Comfortable, no acute distress HENMT: moist mucous membranes EYES: EOM intact b/l NECK: no lymphadenopathy RESPIRATORY: clear to auscultation, no increased respiratory effort CARDIO: Regular rate and rhythm GI: soft, nontender, bowel sounds present SKIN/EXTREMITIES: no rashes, no redness or tenderness; +1 lower extremity edema NEURO: PROM intact, answers questions appropriately, A&O x4 Objective Data Vital Signs Vital Signs: Vital Signs - 24 hr 12/01/24 14:44 12/01/24 15:08 12/01/24 15:15 Temperature 99.8 F H Pulse Rate 73 79 79 Respiratory Rate 18 29 H 20 Blood Pressure 149/106 H Pulse Oximetry 94 94 94 Oxygen Delivery Room Air 12/01/24 15:20 12/01/24 15:30 12/01/24 15:45 Temperature Pulse Rate 83 75 73 Respiratory Rate 16 16 27 H Blood Pressure 169/51 H Pulse Oximetry 98 96 96 Oxygen Delivery 12/01/24 15:48 12/01/24 16:01 12/01/24 16:16 Temperature Pulse Rate 85 74 71 Respiratory Rate 27 H 14 15 Blood Pressure 168/62 H Pulse Oximetry 96 96 Oxygen Delivery 12/01/24 16:31 12/01/24 16:45 12/01/24 17:00 Temperature Pulse Rate 85 74 74 Respiratory Rate 19 22 H 14 Blood Pressure Pulse Oximetry 97 96 97 Oxygen Delivery 12/01/24 17:24 12/01/24 17:30 12/01/24 17:45 Temperature Pulse Rate 75 73 76 Respiratory Rate 29 H 21 H 15 Blood Pressure Pulse Oximetry 97 96 94 Oxygen Delivery 12/01/24 18:00 12/01/24 19:01 12/01/24 19:15 Temperature 99.6 F Pulse Rate 74 78 77 Respiratory Rate 20 27 H 18 Blood Pressure 175/86 H 174/66 H Pulse Oximetry 96 98 97 Oxygen Delivery 12/01/24 19:30 12/01/24 19:39 12/01/24 20:00 Temperature 99.4 F 99.6 F Pulse Rate 87 79 85 Respiratory Rate 20 22 H Blood Pressure 180/63 H 178/99 H Pulse Oximetry 94 97 Oxygen Delivery 12/01/24 20:09 12/01/24 20:15 12/01/24 21:35 Temperature Pulse Rate 79 79 Respiratory Rate 22 H Blood Pressure Pulse Oximetry 97 Oxygen Delivery Room Air Room Air 12/01/24 23:37 12/02/24 00:00 12/02/24 03:09 Temperature 99.8 F H Pulse Rate 51 L 68 70 Respiratory Rate 16 18 Blood Pressure 161/44 H Pulse Oximetry 93 Oxygen Delivery 12/02/24 03:10 12/02/24 03:46 12/02/24 04:00 Temperature 99.9 F H Pulse Rate 69 68 Respiratory Rate 18 Blood Pressure 123/47 L Pulse Oximetry 96 91 Oxygen Delivery Room Air 12/02/24 07:58 12/02/24 07:58 12/02/24 08:00 Temperature Pulse Rate 61 60 Respiratory Rate 20 Blood Pressure Pulse Oximetry 93 Oxygen Delivery Room Air 12/02/24 08:07 12/02/24 08:10 12/02/24 09:07 Temperature 97.5 F L Pulse Rate 63 60 Respiratory Rate 20 20 Blood Pressure 154/55 H Pulse Oximetry 99 Oxygen Delivery Room Air 12/02/24 09:35 12/02/24 09:35 Temperature Pulse Rate 73 Respiratory Rate Blood Pressure Pulse Oximetry Oxygen Delivery Room Air Intake/Output Intake/Output: Intake & Output 11/29/24 11/30/24 12/01/24 12/02/24 23:59 23:59 23:59 23:59 Intake Total 1150 360 Output Total 200 Balance 1150 160 Meds/Results Medications: Active Medications Generic Name Dose Route Start Last Admin Trade Name Freq PRN Reason Stop Dose Admin Acetaminophen 650 mg 12/01/24 17:07 Acetaminophen 325 Mg Tablet PO Q4H PRN Mild Pain (1-3) or Fever Albuterol/Ipratropium 3 ml 12/01/24 21:10 12/02/24 07:57 Ipratropium 0.5 Mg/Albuterol Sulfate 2.5 Mg Ampul.Neb 3 Ml INHALATION 3 ml Q6HRT RACHEL Administration Amlodipine Besylate 20 mg 12/02/24 09:00 12/02/24 09:36 Amlodipine Besylate 10 Mg Tablet PO 20 mg DAILY RACHEL Administration Carvedilol 25 mg 12/01/24 21:10 12/02/24 09:35 Carvedilol 25 Mg Tablet PO 25 mg Q12HR RACHEL Administration Dextrose 12.5 gm 12/01/24 22:01 Dextrose 50% 25 Gm/50 Ml Syringe IV PUSH PRN PRN Hypoglycemia Protocol Ergocalciferol 1,250 mcg 12/08/24 09:00 Ergocalciferol (Vitamin D2) 1,250 Mcg (50,000 Units) Capsule PO WEEKLY RACHEL Furosemide 20 mg 12/01/24 21:10 12/02/24 09:34 Furosemide Inj 40 Mg/4 Ml Vial IV PUSH 20 mg DAILY RACHEL Administration Glucagon 1 mg 12/01/24 22:01 Glucagon For Inj 1 Mg Vial IM PRN PRN Hypoglycemia Protocol Glucose 15 gm 12/01/24 22:01 Glucose Oral Gel 15 Gm Of Glucse In 37.5 Gm Tube PO PRN PRN Hypoglycemia Protocol Guaifenesin/Dextromethorphan 10 ml 12/01/24 21:07 Guaifenesin/Dextromethorphan 10 Ml Udc PO Q4H PRN Cough Heparin Sodium (Porcine) 5,000 units 12/01/24 21:05 12/02/24 09:35 Heparin Sodium 5,000 Units/Ml Vial SUB-Q 5,000 units Q12HR RACHEL Administration Hydralazine HCl 100 mg 12/01/24 21:10 12/02/24 09:36 Hydralazine Hcl 50 Mg Tablet PO 100 mg Q12HR RACHEL Administration Metronidazole 500 mg in 100 mls @ 100 mls/hr 12/01/24 21:00 12/02/24 06:17 Flagyl 500 Mg/Iso Soln 100 Ml IVPB 100 mls/hr Q8HR RACHEL Administration Cefepime HCl 0.5 gm/ Dextrose 50 mls @ 100 mls/hr 12/02/24 16:00 IVPB Q24H RACHEL Insulin Aspart 2 - 5 units 12/02/24 08:00 12/02/24 08:29 Insulin Aspart (*Bkc) 100 Units/Ml SUB-Q Not Given TIDWM [facility] Protocol Insulin Glargine 5 units 12/01/24 22:00 12/01/24 23:30 Insulin Glargine (*Bkc) 100 Units/Ml SUB-Q Not Given HS RACHEL Miscellaneous Information 0 each 12/01/24 00:01 12/02/24 08:28 Colesevelam Nonform Can Pt Bring From Home? XX 12/31/24 00:00 Not Given CLARIFY RACHEL Miscellaneous Information 0 each 12/01/24 00:01 12/02/24 08:28 Pitavastatin Nonform Can Pt Bring From Home? XX 12/31/24 00:00 Not Given CLARIFY RACHEL Miscellaneous Information 0 each 12/01/24 00:01 12/02/24 08:28 Quinlok Nonform Can Pt Bring From Home? XX 12/31/24 00:00 Not Given CLARIFY [facility] Non-Formulary Medication 625 mg 12/02/24 09:00 Colesevelam PO 01/01/25 08:59 BID RACHEL Non-Formulary Medication 4 mg 12/02/24 09:00 Pitavastatin Calcium PO 01/01/25 08:59 DAILY RACHEL Non-Formulary Medication 50 mg 12/02/24 09:00 Ripretinib [Qinlock] PO 01/01/25 08:59 DAILY RACHEL Ondansetron HCl 4 mg 12/01/24 17:07 12/01/24 23:37 Ondansetron Inj 4 Mg/2 Ml Vial IV PUSH 4 mg Q4H PRN Administration Nausea Perflutren Lipid Microsphere 0 ml 12/02/24 07:24 Perflutren Lipid Microspheres 1.5 Ml Vial Diluted To 10 Ml Total Volume IV PUSH 12/05/24 07:24 ONCE PRN adequate visualization Protocol Sodium Bicarbonate 650 mg 12/01/24 21:10 12/02/24 09:35 Sodium Bicarbonate Tab 650 Mg Tablet PO 650 mg BID RACHEL Administration Tamsulosin HCl 0.4 mg 12/01/24 21:10 12/01/24 21:35 Tamsulosin Hcl 0.4 Mg Capsule PO 0.4 mg HS RACHEL Administration Vancomycin HCl 1 each 12/01/24 16:11 Vancomycin For Hemodialysis IVPB PRN PRN Vancomycin Protocol Radiology Results: ITS Impressions Chest X-Ray 12/01/24 16:13 IMPRESSION: No acute cardiopulmonary process. Labs Labs: Laboratory Results - last 24 hr 12/01/24 12/01/24 12/01/24 14:54 14:55 16:32 WBC 19.7 H RBC 4.01 L Hgb 11.5 L Hct 36.1 L MCV 90.0 MCH 28.7 MCHC 31.9 L RDW 14.7 H Plt Count 187 MPV 10.4 Immature Gran % (Auto) 0.7 H Neut % (Auto) 80.6 H Lymph % (Auto) 7.7 L [place] % (Auto) 7.7 Eos % (Auto) 2.7 Baso % (Auto) 0.6 Lymph # (Auto) 1.51 [place] # (Auto) 1.5 H Eos # (Auto) 0.5 H Baso # (Auto) 0.1 Abs Immat Gran (auto) 0.14 H Absolute Neuts (auto) 15.9 H Absolute Nucleated RBC 0.000 Nucleated RBC % 0.0 ESR Sodium 136 L Potassium 4.1 Chloride 101 Carbon Dioxide 23 Anion Gap 12 BUN 37 H Creatinine 5.25 H Estim Creat Clear Calc 13 Estimated GFR 11 L Glucose 173 H POC Capillary Glucose Lactic Acid 1.0 Calcium 8.3 L Phosphorus 3.7 Magnesium 2.0 Total Bilirubin 1.4 H AST 23 ALT 15 Alkaline Phosphatase 85 C-Reactive Protein 6.1 H Total Protein 6.5 Albumin 3.8 Procalcitonin Urine Color Yellow Urine Appearance Clear Urine pH 8.0 Ur Specific [place] 1.015 Urine Protein 4+ H Urine Glucose (UA) 2+ H Urine Ketones Negative Ur Blood (Man) Negative Urine Nitrate Negative Urine Bilirubin Negative Urine Urobilinogen 0.2 Leukocyte Esterase Rfl Negative Urine RBC 0-2 Urine WBC 0-5 Ur Squamous Epith Cells None seen Urine Bacteria None seen Urine Casts 0-2 Nasal MRSA (PCR) Influenza A (RT-PCR) Negative Influenza B (RT-PCR) Negative RSV (RT-PCR) Negative SARS-CoV-2 RNA (RT-PCR) Negative 12/01/24 12/01/24 12/02/24 16:40 20:28 04:46 WBC 17.1 H RBC 3.76 L Hgb 10.9 L Hct 34.2 L MCV 91.0 MCH 29.0 MCHC 31.9 L RDW 15.2 H Plt Count 158 MPV 10.5 H Immature Gran % (Auto) 0.7 H Neut % (Auto) 81.2 H Lymph % (Auto) 8.2 L [place] % (Auto) 8.8 H Eos % (Auto) 0.6 Baso % (Auto) 0.5 Lymph # (Auto) 1.40 [place] # (Auto) 1.5 H Eos # (Auto) 0.1 Baso # (Auto) 0.1 Abs Immat Gran (auto) 0.12 H Absolute Neuts (auto) 13.9 H Absolute Nucleated RBC 0.000 Nucleated RBC % 0.0 ESR 64 H 50 H Sodium 136 L Potassium 4.4 Chloride 102 Carbon Dioxide 21 L Anion Gap 13 H BUN 42 H Creatinine 5.88 H Estim Creat Clear Calc 10 Estimated GFR 9 L Glucose 182 H POC Capillary Glucose Lactic Acid Calcium 7.9 L Phosphorus 4.3 Magnesium 2.0 Total Bilirubin 1.4 H AST 21 ALT 15 Alkaline Phosphatase 65 C-Reactive Protein 17.6 H Total Protein 6.2 L Albumin 3.4 L Procalcitonin 0.5 1.6 Urine Color Urine Appearance Urine pH Ur Specific [place] Urine Protein Urine Glucose (UA) Urine Ketones Ur Blood (Man) Urine Nitrate Urine Bilirubin Urine Urobilinogen Leukocyte Esterase Rfl Urine RBC Urine WBC Ur Squamous Epith Cells Urine Bacteria Urine Casts Nasal MRSA (PCR) Not detected Influenza A (RT-PCR) Influenza B (RT-PCR) RSV (RT-PCR) SARS-CoV-2 RNA (RT-PCR) 12/02/24 08:05 WBC RBC Hgb Hct MCV MCH MCHC RDW Plt Count MPV Immature Gran % (Auto) Neut % (Auto) Lymph % (Auto) [place] % (Auto) Eos % (Auto) Baso % (Auto) Lymph # (Auto) [place] # (Auto) Eos # (Auto) Baso # (Auto) Abs Immat Gran (auto) Absolute Neuts (auto) Absolute Nucleated RBC Nucleated RBC % ESR Sodium Potassium Chloride Carbon Dioxide Anion Gap BUN Creatinine Estim Creat Clear Calc Estimated GFR Glucose POC Capillary Glucose 150 H Lactic Acid Calcium Phosphorus Magnesium Total Bilirubin AST ALT Alkaline Phosphatase C-Reactive Protein Total Protein Albumin Procalcitonin Urine Color Urine Appearance Urine pH Ur Specific [place] Urine Protein Urine Glucose (UA) Urine Ketones Ur Blood (Man) Urine Nitrate Urine Bilirubin Urine Urobilinogen Leukocyte Esterase Rfl Urine RBC Urine WBC Ur Squamous Epith Cells Urine Bacteria Urine Casts Nasal MRSA (PCR) Influenza A (RT-PCR) Influenza B (RT-PCR) RSV (RT-PCR) SARS-CoV-2 RNA (RT-PCR)
[2024-12-02] MEDS: INSULIN ASPART (*BKC) 100 UNITS/ML SUB-Q ×2 (12:32→17:28)
--- NOTE | 2024-12-02 13:20 | PHAR ---
home med verified QINLOCK 50MG TABLETS TAKE 1 TABLET DAILY
[2024-12-02] MEDS: PERFLUTREN LIPID MICROSPHERES 1.5 ML VIAL DILUTED TO 10 ML TOTAL VOLUME IV PUSH (15:15)
[2024-12-02] MEDS: CEFEPIME 1 GM/NS 50 ML 1 GM/50 ML BAG IVPB (16:35)
--- NOTE | 2024-12-02 16:57 | IVDEFINITY ---
Prior to administration of IV Definity the patient was educated on the risks and benefits of the imaging enhancing agent including potential adverse side effects. The patient verbalized understanding. Allergies were verified. No exclusion criteria were identified and at least one of the following inclusion criteria were met: 1) physician request, 2) patient technically difficult to image (per the [place] [employer] guidelines of two or more segments not discernable within the apical view), or 3) questionable left ventricular function. ?
[2024-12-02] MEDS: [UNRECOGNIZED DRUG - OTHER] 50 EACH PO (21:44)
[2024-12-02] MEDS: INSULIN GLARGINE (*BKC) 100 UNITS/ML SUB-Q (21:46)
[2024-12-02] MEDS: TAMSULOSIN HCL 0.4 MG CAPSULE PO (21:47)
[2024-12-03] VITALS (31 sets, daily range): BP systolic 118–162; BP diastolic 51–80; PULSE 58–85; RESP 16–20; TEMP 36.3–37.3; O2SAT 94–99
[2024-12-03] MEDS: IPRATROPIUM 0.5 MG/ALBUTEROL SULFATE 2.5 MG AMPUL.NEB 3 ML INHALATION (01:49)
[2024-12-03] MEDS: ACETAMINOPHEN 325 MG TABLET 650 MG PO (03:17)
[2024-12-03 05:58] LABS: Hematocrit 31.4 % (42.0-52.0); Hemoglobin 9.8 g/dL (14.0-18.0); Immature Granulocyte Percent A 0.7 % (0-0.5); Lymphocytes Absolute Auto 1.64 K/mm3 (0.9-3.2); Mean Corpuscular HGB Conc 31.2 g/dl (32-36); Mean Corpuscular Hemoglobin 28.7 pg (26-34); Mean Corpuscular Volume 92.1 fl (80-100); Nucleated Red Blood Cells Absolute Auto 0.000 K/mm3 (0.0-0.012); Nucleated Red Blood Cells Perc 0.0 % (0.0-0.2); Platelet Count Result 138 k/mm3 (150-375); Red Blood Count 3.41 M/mm3 (4.6-6.20); White Blood Count 12.3 K/mm3 (4.5-10.0)
[2024-12-03 06:24] LABS: Alanine Aminotransferase 10 U/L (6-50); Albumin Level 3.0 g/dL (3.5-5.1); Alkaline Phosphatase 60 U/L (38-126); Anion Gap 13 mmol/L (4-12); Aspartate Amino Transferase 19 U/L (17-59); Bilirubin,Total 1.2 mg/dL (0.2-1.3); Blood Urea Nitrogen 58 mg/dL (9-20); CRP 19.9 mg/dL (<1.0); Calcium 7.5 mg/dL (8.4-10.2); Carbon Dioxide 19 mmol/L (22-30); Chloride 101 mmol/L (98-107); Estimated CRCL calculation 8 ml/min; Estimated Glomerular Filt Rate 8; Glucose 147 mg/dL (65-110); Magnesium 2.0 mg/dL (1.6-2.3); Potassium 4.0 mmol/L (3.4-5.0); Sodium 133 mmol/L (137-145); Total Protein 5.6 g/dL (6.3-8.2)
[2024-12-03 06:47] LABS: Procalcitonin 1.8 ng/mL
[2024-12-03 07:00] LABS: Hepatitis B Surface Antigen Negative (Negative)
[2024-12-03 07:17] LABS: Hepatitis B Surface Anti Res Negative
--- NOTE | 2024-12-03 07:57 | P.PNIM_ITS ---
Progress Note: A&P Assessment and Plan (1) Fever: Code(s): R50.9 - Fever, unspecified Status: Acute Assessment and Plan: -Fever on arrival to ER with associated acute cough. Started feeling ill evening 11/28 -Last low grade fever 12/02 with WBC trending down. Procal elevated as is CRP. ? xray neg PNA. Will obtain chest CT -UA no evidence infection -Blood cultures NGTD -Right IJ Dialysis catheter in place with no surrounding signs of infection. Plan on dialysis tomorrow. -Flu/Covid/RSV negative -Pending viral respiratory panel results -Sputum culture order-sent but not resulted -Not hypoxic, not tachycardic, no hemoptysis, low likelihood of PE -Negative venous ultrasound of legs a couple weeks ago at [facility] per patient and -Left foot pain without erythema or open wounds, painful to bear weight-will obtain xray -echo nml EF (2) Cough in adult: Code(s): R05.9 - Cough, unspecified Status: Acute Assessment and Plan: -Ordered Robitussin, Duonebs, Lasix -Sputum culture and respiratory panel ordered. 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 Will restart (8) HTN (hypertension): Code(s): I10 - Essential (primary) hypertension Status: Chronic Assessment and Plan: -bp stable 147/54 -continue home medications (9) Type 2 diabetes mellitus: Qualifiers: Chronic kidney disease stage: on chronic dialysis Diabetes mellitus complication detail: with chronic kidney disease Diabetes mellitus complication status: with kidney complications Diabetes mellitus skilled nursing insulin use: with skilled nursing use Qualified Code(s): E11.22 - Type 2 diabetes mellitus with diabetic chronic kidney disease; N18.6 - End stage renal disease; Z79.4 - retirement (current) use of insulin; Z99.2 - Dependence on renal dialysis Code(s): E11.9 - Type 2 diabetes mellitus without complications Status: Chronic Assessment and Plan: -last glucose 147 -Renal diet with ACHS fingerstick glucose and SSI -Continue current regimen Plan dvt ppx heparin Time Spent With Patient Time with patient: 25 - 35 minutes Subjective Date/time seen: 12/03/24 07:57 Interval history: Pt is a 79-year-old male here for cough. Patient states that he continues to have a cough that is productive with white sputum the. He does not think this is getting any better. He does not have any shortness of breath at rest but has not gotten out of bed. He usually is ambulating with a wheelchair for the last 2 weeks due to a foot injury. He states that he feels a little constipated but did have a bowel movement yesterday. He denies chest pain, fevers, chills or abdominal pain. He states his foot continues to hurt and denies trauma to the area. He has been in wheelchair for 2 weeks because he cannot bear weight on it. He says that left leg is usually more swollen due to vein harvest. He states he takes a baby aspirin at home due to history of cardiac disease. Review of Systems Review of Systems: All systems reviewed & are unremarkable except as noted in HPI and below Exam Narrative: General: Well developed well nourished patient in NAD HEENT: normocephalic Neck: supple Neuro: Alert and oriented x4 CV:RRR with occasional extra beat noted Resp: Unable to do complete exam due position need for dialysis. Left lung does sound decreased compared to the right. No overt wheezing Abd: Soft, non distended. No pain to palpation. Positive bowel sounds Extremities: No significant swelling, erythema, or pain to palpation. Left foot with bruising to the lateral aspect but no pain to palpation or erythema Objective Data Vital Signs Vital Signs: Vital Signs - 24 hr 12/02/24 07:58 12/02/24 07:58 12/02/24 08:00 Temperature Pulse Rate 61 60 Respiratory Rate 20 Blood Pressure Pulse Oximetry 93 Oxygen Delivery Room Air Oxygen Flow Rate 12/02/24 08:07 12/02/24 08:10 12/02/24 09:07 Temperature 97.5 F L Pulse Rate 63 60 Respiratory Rate 20 20 Blood Pressure 154/55 H Pulse Oximetry 99 Oxygen Delivery Room Air Oxygen Flow Rate 12/02/24 09:35 12/02/24 09:35 12/02/24 12:00 Temperature Pulse Rate 73 55 L Respiratory Rate Blood Pressure Pulse Oximetry Oxygen Delivery Room Air Oxygen Flow Rate 12/02/24 13:01 12/02/24 14:07 12/02/24 14:17 Temperature 97.1 F L Pulse Rate 54 L 54 L 53 L Respiratory Rate 18 16 16 Blood Pressure 130/45 L Pulse Oximetry 97 Oxygen Delivery Oxygen Flow Rate 12/02/24 16:00 12/02/24 18:08 12/02/24 20:00 Temperature 98.6 F 99.5 F Pulse Rate 53 L 63 65 Respiratory Rate 18 20 Blood Pressure 152/54 H 152/67 H Pulse Oximetry 92 93 Oxygen Delivery Oxygen Flow Rate 12/02/24 20:00 12/02/24 20:00 12/02/24 20:17 Temperature Pulse Rate 63 Respiratory Rate Blood Pressure Pulse Oximetry 91 Oxygen Delivery Room Air Nasal Cannula Oxygen Flow Rate 1 12/02/24 20:17 12/02/24 20:23 12/02/24 21:45 Temperature Pulse Rate 81 73 73 Respiratory Rate 20 20 Blood Pressure Pulse Oximetry Oxygen Delivery Oxygen Flow Rate 12/03/24 00:00 12/03/24 00:31 12/03/24 01:49 Temperature 98.9 F Pulse Rate 65 84 68 Respiratory Rate 16 20 Blood Pressure 118/51 L Pulse Oximetry 94 Oxygen Delivery Oxygen Flow Rate 12/03/24 01:54 12/03/24 04:00 12/03/24 05:08 Temperature 98 F Pulse Rate 67 63 66 Respiratory Rate 20 18 Blood Pressure 147/54 H Pulse Oximetry 96 Oxygen Delivery Oxygen Flow Rate Intake/Output Intake/Output: Intake & Output 11/30/24 12/01/24 12/02/24 12/03/24 23:59 23:59 23:59 23:59 Intake Total 1150 1200 350 Output Total 650 225 Balance 1150 550 125 Meds/Results Medications: Active Medications Generic Name Dose Route Start Last Admin Trade Name Freq PRN Reason Stop Dose Admin Acetaminophen 650 mg 12/01/24 17:07 12/03/24 03:17 Acetaminophen 325 Mg Tablet PO 650 mg Q4H PRN Administration Mild Pain (1-3) or Fever Albuterol/Ipratropium 3 ml 12/01/24 21:10 12/03/24 01:49 Ipratropium 0.5 Mg/Albuterol Sulfate 2.5 Mg Ampul.Neb 3 Ml INHALATION 3 ml Q6HRT RACHEL Administration Amlodipine Besylate 20 mg 12/02/24 09:00 12/02/24 09:36 Amlodipine Besylate 10 Mg Tablet PO 20 mg DAILY RACHEL Administration Carvedilol 25 mg 12/01/24 21:10 12/02/24 21:45 Carvedilol 25 Mg Tablet PO 25 mg Q12HR RACHEL Administration Dextrose 12.5 gm 12/01/24 22:01 Dextrose 50% 25 Gm/50 Ml Syringe IV PUSH PRN PRN Hypoglycemia Protocol Epoetin Robert-epbx 10,000 units 12/03/24 18:28 Epoetin Robert-Epbx 10,000 Units/Ml Vial IV PUSH 12/03/24 18:29 ONCE ONE Ergocalciferol 1,250 mcg 12/08/24 09:00 Ergocalciferol (Vitamin D2) 1,250 Mcg (50,000 Units) Capsule PO WEEKLY RACHEL Furosemide 20 mg 12/01/24 21:10 12/02/24 09:34 Furosemide Inj 40 Mg/4 Ml Vial IV PUSH 20 mg DAILY RACHEL Administration Glucagon 1 mg 12/01/24 22:01 Glucagon For Inj 1 Mg Vial IM PRN PRN Hypoglycemia Protocol Glucose 15 gm 12/01/24 22:01 Glucose Oral Gel 15 Gm Of Glucse In 37.5 Gm Tube PO PRN PRN Hypoglycemia Protocol Guaifenesin/Dextromethorphan 10 ml 12/01/24 21:07 12/02/24 12:38 Guaifenesin/Dextromethorphan 10 Ml Udc PO 10 ml Q4H PRN Administration Cough Heparin Sodium (Porcine) 5,000 units 12/01/24 21:05 12/02/24 21:45 Heparin Sodium 5,000 Units/Ml Vial SUB-Q 5,000 units Q12HR RACHEL Administration Hydralazine HCl 100 mg 12/01/24 21:10 12/02/24 21:46 Hydralazine Hcl 50 Mg Tablet PO 100 mg Q12HR RACHEL Administration Cefepime HCl 1 gm in 50 mls @ 100 mls/hr 12/02/24 16:00 12/02/24 17:05 Maxipime 1 Gm/Ns 50 Ml IVPB Infused Q24H RACHEL Infusion Albumin Human 50 mls @ 999 mls/hr 12/03/24 06:27 Albutein IVPB 01/02/25 06:26 Q10M PRN HYPOTENSION Insulin Aspart 2 - 5 units 12/02/24 08:00 12/02/24 17:28 Insulin Aspart (*Bkc) 100 Units/Ml SUB-Q 2 units TIDWM RACHEL Administration Protocol Insulin Glargine 5 units 12/01/24 22:00 12/02/24 21:46 Insulin Glargine (*Bkc) 100 Units/Ml SUB-Q 5 units HS RACHEL Administration Metronidazole 500 mg 12/02/24 22:00 12/03/24 05:56 Metronidazole 500 Mg Tablet PO 500 mg Q8HR RACHEL Administration Miscellaneous Information 0 each 12/01/24 00:01 12/02/24 08:28 Colesevelam Nonform Can Pt Bring From Home? XX 12/31/24 00:00 Not Given CLARIFY RACHEL Miscellaneous Information 0 each 12/01/24 00:01 12/02/24 08:28 Pitavastatin Nonform Can Pt Bring From Home? XX 12/31/24 00:00 Not Given CLARIFY RACHEL Non-Formulary Medication 625 mg 12/02/24 09:00 Colesevelam PO 01/01/25 08:59 BID RACHEL Non-Formulary Medication 4 mg 12/02/24 09:00 Pitavastatin Calcium PO 01/01/25 08:59 DAILY RACHEL Home Med (Ripretinib 50 mg 12/02/24 21:00 12/02/24 21:44 [Qinlock] 50 Mg PO 01/01/25 20:59 50 mg Tablet) QHS RACHEL Administration Ondansetron HCl 4 mg 12/01/24 17:07 12/01/24 23:37 Ondansetron Inj 4 Mg/2 Ml Vial IV PUSH 4 mg Q4H PRN Administration Nausea Sodium Bicarbonate 650 mg 12/01/24 21:10 12/02/24 17:29 Sodium Bicarbonate Tab 650 Mg Tablet PO 650 mg BID RACHEL Administration Tamsulosin HCl 0.4 mg 12/01/24 21:10 12/02/24 21:47 Tamsulosin Hcl 0.4 Mg Capsule PO 0.4 mg HS RACHEL Administration Radiology Results: ITS Impressions Chest X-Ray 12/01/24 16:13 IMPRESSION: No acute cardiopulmonary process. Labs Labs: Laboratory Results - last 24 hr 12/02/24 12/02/24 12/02/24 08:05 12:27 17:15 WBC RBC Hgb Hct MCV MCH MCHC RDW Plt Count MPV Immature Gran % (Auto) Neut % (Auto) Lymph % (Auto) Hughes % (Auto) Eos % (Auto) Baso % (Auto) Lymph # (Auto) Hughes # (Auto) Eos # (Auto) Baso # (Auto) Abs Immat Gran (auto) Absolute Neuts (auto) Absolute Nucleated RBC Nucleated RBC % ESR Sodium Potassium Chloride Carbon Dioxide Anion Gap BUN Creatinine Estim Creat Clear Calc Estimated GFR Glucose POC Capillary Glucose 150 H 222 H 229 H Calcium Phosphorus Magnesium Total Bilirubin AST ALT Alkaline Phosphatase C-Reactive Protein Total Protein Albumin Procalcitonin Hep Bs Antigen Hep Bs Antibody 12/02/24 12/03/24 21:26 05:18 WBC 12.3 H RBC 3.41 L Hgb 9.8 L Hct 31.4 L MCV 92.1 MCH 28.7 MCHC 31.2 L RDW 15.0 H Plt Count 138 L MPV 11.0 H Immature Gran % (Auto) 0.7 H Neut % (Auto) 70.3 Lymph % (Auto) 13.4 L Hughes % (Auto) 10.0 H Eos % (Auto) 5.1 H Baso % (Auto) 0.5 Lymph # (Auto) 1.64 Hughes # (Auto) 1.2 H Eos # (Auto) 0.6 H Baso # (Auto) 0.1 Abs Immat Gran (auto) 0.08 H Absolute Neuts (auto) 8.6 H Absolute Nucleated RBC 0.000 Nucleated RBC % 0.0 ESR 49 H Sodium 133 L Potassium 4.0 Chloride 101 Carbon Dioxide 19 L Anion Gap 13 H BUN 58 H D Creatinine 6.86 H Estim Creat Clear Calc 8 Estimated GFR 8 L Glucose 147 H POC Capillary Glucose 176 H Calcium 7.5 L Phosphorus 4.6 H Magnesium 2.0 Total Bilirubin 1.2 AST 19 ALT 10 Alkaline Phosphatase 60 C-Reactive Protein 19.9 H Total Protein 5.6 L Albumin 3.0 L Procalcitonin 1.8 Hep Bs Antigen Negative Hep Bs Antibody Negative Quality VTE Prophylaxis VTE prophylaxis: mechanical ordered
--- NOTE | 2024-12-03 09:30 | P.PNNP_ITS ---
Progress Note: A&P Assessment and Plan (1) End stage renal disease: Code(s): N18.6 - End stage renal disease Status: Chronic Assessment and Plan: * HD today * continue //Monday dialysis schedule while hospitalized * follow electrolytes, volume status, and clearance (2) Low grade fever: Code(s): R50.9 - Fever, unspecified Status: Acute Assessment and Plan: * as noted in the ER (37.7?/99.9?) * noted again at 11:37PM on 12/01 and 3:47AM on 12/02 * no further fevers noted * etiology no clear: * CXR no evident pneumonia * UA no evidence infection * cultures negative to date * viral testing for influenza/COVID/RSV negative * respiratory pathogen penal pending * continue supportive therapy (3) Cough: Code(s): R05.9 - Cough, unspecified Status: Acute Assessment and Plan: * now productive with white sputum * sputum cultures and respiratory panel pending * on Robitussin and nebulizer treatments * CXR results noted * CT of chest ordered for today (4) Anemia: Code(s): D64.9 - Anemia, unspecified Status: Acute Assessment and Plan: * due to ESRD * Epogen with HD * follow trend of H/H (5) Hypertension: Code(s): I10 - Essential (primary) hypertension Status: Chronic Assessment and Plan: * fluctuating * continue home medications * follow trend of hemodynamics (6) Type 2 diabetes mellitus: Qualifiers: Chronic kidney disease stage: on chronic dialysis Diabetes mellitus complication detail: with chronic kidney disease Diabetes mellitus complication status: with kidney complications Diabetes mellitus terminal make up operator insulin use: with terminal make up operator use Qualified Code(s): E11.22 - Type 2 diabetes mellitus with diabetic chronic kidney disease; N18.6 - End stage renal disease; Z79.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 L Subjective Date/time seen: 12/03/24 09:30 Interval history: Follow-up for end stage renal disease on hemodialysis. Tolerating dialysis treatment at the time of my visit (seen on HD at 9:20AM); still complains of cough which now is apparently productive of white sputum and he thinks that the cough is getting worse despite interventions since admission; denies any other symptoms with regard to chest pain or shortness of breath; no acute distress when seen. Exam 2 Narrative: General: elderly but WD/WN male in NAD Heart: normal S1 and S2; no rub Lungs: coarse breath sounds; decreased at bases Abdomen: soft, nontender, nondistended, positive bowel sounds Extremities: no cyanosis or clubbing; trace edema Skin: warm and dry Objective Data Vital Signs Vital Signs: Vital Signs Temp Pulse Resp BP Pulse Ox O2 Del Method O2 Flow Rate 12/03/24 09:30 63 147/57 H 12/03/24 09:15 67 148/67 H 12/03/24 09:00 67 145/61 H 12/03/24 08:45 75 147/64 H 12/03/24 08:30 70 131/65 12/03/24 08:15 64 157/73 H 12/03/24 08:00 67 12/03/24 07:54 98.4 F 63 19 154/70 H 96 12/03/24 07:54 64 146/55 H 12/03/24 05:08 98 F 66 18 147/54 H 96 12/03/24 04:00 63 12/03/24 01:54 67 20 12/03/24 01:49 68 20 12/03/24 00:31 98.9 F 84 16 118/51 L 94 12/03/24 00:00 65 12/02/24 21:45 73 12/02/24 20:23 73 20 12/02/24 20:17 81 20 12/02/24 20:17 91 Nasal Cannula 1 12/02/24 20:00 Room Air 12/02/24 20:00 63 12/02/24 20:00 99.5 F 65 20 152/67 H 93 12/02/24 18:08 98.6 F 63 18 152/54 H 92 12/02/24 16:00 53 L 12/02/24 14:17 53 L 16 12/02/24 14:07 54 L 16 12/02/24 13:01 97.1 F L 54 L 18 130/45 L 97 Intake/Output Intake/Output: Intake & Output 06/28/25 12/01/24 12/02/24 12/03/24 23:59 23:59 23:59 23:59 Intake Total 1150 1200 350 Output Total 650 225 Balance 1150 550 125 Meds/Results Medications: Active Medications Generic Name Dose Route Start Last Admin Trade Name Dutchq PRN Reason Stop Dose Admin Acetaminophen 650 mg 12/01/24 17:07 12/03/24 03:17 Acetaminophen 325 Mg Tablet PO 650 mg Q4H PRN Administration Mild Pain (1-3) or Fever Albuterol/Ipratropium 3 ml 12/01/24 21:10 12/03/24 08:55 Ipratropium 0.5 Mg/Albuterol Sulfate 2.5 Mg Ampul.Neb 3 Ml INHALATION Not Given Q6HRT RACHEL Amlodipine Besylate 20 mg 12/02/24 09:00 12/02/24 09:36 Amlodipine Besylate 10 Mg Tablet PO 20 mg DAILY RACHEL Administration Aspirin 81 mg 12/03/24 10:30 Aspirin 81 Mg Enteric Tablet PO QAM RACHEL Carvedilol 25 mg 12/01/24 21:10 12/02/24 21:45 Carvedilol 25 Mg Tablet PO 25 mg Q12HR RACHEL Administration Dextrose 12.5 gm 12/01/24 22:01 Dextrose 50% 25 Gm/50 Ml Syringe IV PUSH PRN PRN Hypoglycemia Protocol Epoetin Robert-epbx 10,000 units 12/03/24 18:28 12/03/24 09:46 Epoetin Robert-Epbx 10,000 Units/Ml Vial IV PUSH 12/03/24 18:29 10,000 units ONCE ONE Administration Ergocalciferol 1,250 mcg 12/08/24 09:00 Ergocalciferol (Vitamin D2) 1,250 Mcg (50,000 Units) Capsule PO WEEKLY RACHEL Furosemide 20 mg 12/01/24 21:10 12/02/24 09:34 Furosemide Inj 40 Mg/4 Ml Vial IV PUSH 20 mg DAILY RACHEL Administration Glucagon 1 mg 12/01/24 22:01 Glucagon For Inj 1 Mg Vial IM PRN PRN Hypoglycemia Protocol Glucose 15 gm 12/01/24 22:01 Glucose Oral Gel 15 Gm Of Glucse In 37.5 Gm Tube PO PRN PRN Hypoglycemia Protocol Guaifenesin/Dextromethorphan 10 ml 12/01/24 21:07 12/02/24 12:38 Guaifenesin/Dextromethorphan 10 Ml Udc PO 10 ml Q4H PRN Administration Cough Heparin Sodium (Porcine) 5,000 units 12/01/24 21:05 12/02/24 21:45 Heparin Sodium 5,000 Units/Ml Vial SUB-Q 5,000 units Q12HR RACHEL Administration Hydralazine HCl 100 mg 12/01/24 21:10 12/02/24 21:46 Hydralazine Hcl 50 Mg Tablet PO 100 mg Q12HR RACHEL Administration Cefepime HCl 1 gm in 50 mls @ 100 mls/hr 12/02/24 16:00 12/02/24 17:05 Maxipime 1 Gm/Ns 50 Ml IVPB Infused Q24H RACHEL Infusion Albumin Human 50 mls @ 999 mls/hr 12/03/24 06:27 Albutein IVPB 01/02/25 06:26 Q10M PRN HYPOTENSION Insulin Aspart 2 - 5 units 12/02/24 08:00 12/03/24 10:45 Insulin Aspart (*Bkc) 100 Units/Ml SUB-Q Not Given TIDWM [facility] Protocol Insulin Glargine 5 units 12/01/24 22:00 12/02/24 21:46 Insulin Glargine (*Bkc) 100 Units/Ml SUB-Q 5 units HS RACHEL Administration Metronidazole 500 mg 12/02/24 22:00 12/03/24 05:56 Metronidazole 500 Mg Tablet PO 500 mg Q8HR RACHEL Administration Miscellaneous Information 0 each 12/01/24 00:01 12/02/24 08:28 Colesevelam Nonform Can Pt Bring From Home? XX 12/31/24 00:00 Not Given CLARIFY RACHEL Miscellaneous Information 0 each 12/01/24 00:01 12/02/24 08:28 Pitavastatin Nonform Can Pt Bring From Home? XX 12/31/24 00:00 Not Given CLARIFY RACHEL Non-Formulary Medication 625 mg 12/02/24 09:00 Colesevelam PO 01/01/25 08:59 BID RACHEL Non-Formulary Medication 4 mg 12/02/24 09:00 Pitavastatin Calcium PO 01/01/25 08:59 DAILY RACHEL Home Med (Ripretinib 50 mg 12/02/24 21:00 12/02/24 21:44 [Qinlock] 50 Mg PO 01/01/25 20:59 50 mg Tablet) QHS RACHEL Administration Ondansetron HCl 4 mg 12/01/24 17:07 12/01/24 23:37 Ondansetron Inj 4 Mg/2 Ml Vial IV PUSH 4 mg Q4H PRN Administration Nausea Sodium Bicarbonate 650 mg 12/01/24 21:10 12/02/24 17:29 Sodium Bicarbonate Tab 650 Mg Tablet PO 650 mg BID RACHEL Administration Tamsulosin HCl 0.4 mg 12/01/24 21:10 12/02/24 21:47 Tamsulosin Hcl 0.4 Mg Capsule PO 0.4 mg HS RACHEL Administration Radiology Results: ITS Impressions Chest X-Ray 12/01/24 16:13 IMPRESSION: No acute cardiopulmonary process. Labs Labs: Laboratory Tests 12/03/24 05:18 12/03/24 05:18 Calcium 7.5 L Phosphorus 4.6 H Magnesium 2.0 Total Bilirubin 1.2 AST 19 ALT 10 Alkaline Phosphatase 60 C-Reactive Protein 19.9 H Total Protein 5.6 L Albumin 3.0 L Procalcitonin 1.8 Microbiology 12/02/24 12:44 Sputum Sputum Culture - Preliminary 12/01/24 15:19 Blood Blood Culture - Preliminary 12/01/24 15:19 Blood Blood Culture - Preliminary
[2024-12-03] MEDS: EPOETIN ALFA-EPBX 10,000 UNITS/ML VIAL 10000 UNITS IV PUSH (09:46)
[2024-12-03] MEDS: ASPIRIN 81 MG ENTERIC TABLET PO (12:03)
[2024-12-03] MEDS: FUROSEMIDE INJ 40 MG/4 ML VIAL 20 MG IV PUSH (12:03)
[2024-12-03] MEDS: SODIUM BICARBONATE TAB 650 MG TABLET PO ×2 (12:03→17:04)
--- NOTE | 2024-12-03 13:50 | PCOTNOTE ---
Attempted to see pt. for occupational therapy evaluation x2 on this date, pt. out of room for dialysis, then being taken for testing. Nursing aware. Following.
[2024-12-03] MEDS: CEFEPIME 1 GM/NS 50 ML 1 GM/50 ML BAG IVPB (17:04)
[2024-12-03] MEDS: INSULIN ASPART (*BKC) 100 UNITS/ML SUB-Q (17:32)
[2024-12-03] MEDS: TAMSULOSIN HCL 0.4 MG CAPSULE PO (20:27)
[2024-12-03] MEDS: MELATONIN 3 MG TABLET PO (20:27)
[2024-12-03] MEDS: INSULIN GLARGINE (*BKC) 100 UNITS/ML SUB-Q (20:28)
[2024-12-03] MEDS: [UNRECOGNIZED DRUG - OTHER] 50 EACH PO (20:28)
[2024-12-04] VITALS (12 sets, daily range): BP systolic 144–155; BP diastolic 46–57; PULSE 53–88; RESP 16–20; TEMP 36.3–36.8; O2SAT 90–96
[2024-12-04 05:52] LABS: Hematocrit 33.9 % (42.0-52.0); Hemoglobin 10.9 g/dL (14.0-18.0); Immature Granulocyte Percent A 0.8 % (0-0.5); Lymphocytes Absolute Auto 1.92 K/mm3 (0.9-3.2); Mean Corpuscular HGB Conc 32.2 g/dl (32-36); Mean Corpuscular Hemoglobin 28.9 pg (26-34); Mean Corpuscular Volume 89.9 fl (80-100); Nucleated Red Blood Cells Absolute Auto 0.000 K/mm3 (0.0-0.012); Nucleated Red Blood Cells Perc 0.0 % (0.0-0.2); Platelet Count Result 165 k/mm3 (150-375); Red Blood Count 3.77 M/mm3 (4.6-6.20); White Blood Count 10.5 K/mm3 (4.5-10.0)
[2024-12-04 07:01] LABS: Alanine Aminotransferase 12 U/L (6-50); Albumin Level 3.3 g/dL (3.5-5.1); Alkaline Phosphatase 78 U/L (38-126); Anion Gap 10 mmol/L (4-12); Aspartate Amino Transferase 26 U/L (17-59); Bilirubin,Total 1.4 mg/dL (0.2-1.3); Blood Urea Nitrogen 31 mg/dL (9-20); CRP 17.2 mg/dL (<1.0); Calcium 8.1 mg/dL (8.4-10.2); Carbon Dioxide 27 mmol/L (22-30); Chloride 100 mmol/L (98-107); Estimated CRCL calculation 13 ml/min; Estimated Glomerular Filt Rate 11; Glucose 146 mg/dL (65-110); Magnesium 2.1 mg/dL (1.6-2.3); Potassium 3.9 mmol/L (3.4-5.0); Sodium 137 mmol/L (137-145); Total Protein 6.2 g/dL (6.3-8.2)
--- NOTE | 2024-12-04 08:16 | PM.CNOR ---
Assessment and Plan Assessment and plan (1) Swelling of left foot: Code(s): M79.89 - Other specified soft tissue disorders Status: Acute Assessment and Plan: Persistent swelling of the left lower leg since vein graft several years ago for cardiac bypass. Venous stasis and lymphedema left lower extremity, chronic. No new changes. (2) Type 2 diabetes mellitus: Qualifiers: Diabetes mellitus adjunct faculty for medical terminology insulin use: with adjunct faculty for medical terminology use Diabetes mellitus complication status: with kidney complications Diabetes mellitus complication detail: with chronic kidney disease Chronic kidney disease stage: on chronic dialysis Qualified Code(s): E11.22 - Type 2 diabetes mellitus with diabetic chronic kidney disease; N18.6 - End stage renal disease; Z79.4 - intermediate accountant (current) use of insulin; Z99.2 - Dependence on renal dialysis Code(s): E11.9 - Type 2 diabetes mellitus without complications Status: Chronic Assessment and Plan: Diabetes with peripheral neuropathy. (3) Osteochondroma of left lower leg: Code(s): D16.22 - Benign neoplasm of long bones of left lower limb Status: Inactive Assessment and Plan: Left distal tibia lateral osteochondroma, chronic with chronic accompanying changes of the overlying fibula. Discussed and reviewed with the patient. Discussed chronicity of the condition and benign nature. Discussed conservative management as well as operative options. Patient is nontender over the area and no other symptoms associated with the osteochondroma. Doubt patient current symptomatology due to osteo chondroma. (4) AVN (avascular necrosis of bone): Code(s): M87.00 - Idiopathic aseptic necrosis of unspecified bone Status: Acute Assessment and Plan: Pain of the left foot and ankle with weight-bearing radiating up the left leg. Insidious onset. Exam shows swelling of the left leg which is chronic. Tenderness on plantar heel. No erythema or fluctuance to suggest infection. Unable to palpate pulses. Concern for AVN or other necrosis. Recommend MRI of the left ankle. (5) Arterial vascular disease: Code(s): I70.90 - Unspecified atherosclerosis Status: Acute Assessment and Plan: Unable to palpate pulses in the left or right foot. Recommend ABBIE/ TBI to evaluate arterial vascular status. History of Present Illness HPI Consult date: 12/04/24 Requesting physician: Joann Bush PA-C Chief complaint: Left foot pain Narrative: 79-year-old gentleman with 1 month history of left plantar foot pain which radiates to the ankle and lower leg. Unknown etiology. Denies injury to the foot or ankle. Insidious onset. Unable to bear weight on the foot or leg. medical history of diabetes, coronary artery disease, end-stage renal disease on hemodialysis. History of vein graft from the left lower leg for cardiac artery bypass surgery with resultant left lower extremity swelling for the past 5 years. Although swelling has been present he has not had this type of pain before. He presented to the emergency room a month ago due to the pain where x-rays and CT scan showed osteochondroma of the distal lateral tibia but no abnormality of the ankle or hindfoot. he states several days ago he was seen by production control coordinating clerk who performed a cortisone injection of the lateral hindfoot with no improvement. Pain is sharp and severe on the plantar heel and radiates up the leg with weight-bearing. He is better when he is off of it. He has not been able to walk due to the pain. 3 days ago use admitted to the hospital with fever, leukocytosis and cough. Currently he has a fairly severe cough with sputum production and shortness of breath. Review of Systems Constitutional: Constitutional: Denies fever(s) Eyes: Eyes: Denies blurry vision ENT: Reports Normal hearing present Cardiovascular: Cardiovascular: Denies chest pain and Denies dyspnea Respiratory: Respiratory: Denies dyspnea and Denies wheezing Gastrointestinal: Gastrointestinal: Denies abdominal pain Genitourinary: Genitourinary: Denies urinary urgency Musculoskeletal: Musculoskeletal: Reports as per HPI and Denies numbness Integumentary/Breasts: Skin/Breast: Denies changing lesions and Denies sores Neurologic: Reports Normal hearing present, Denies behavioral changes, Denies confusion, Denies numbness and Denies convulsions Psychiatric: Psychiatric: Denies behavioral changes, Denies confusion and Denies hallucinations Endocrine: Endocrine: Denies heat intolerance Hematologic/Lymphatic: Hematologic/Lymphatic: Denies easy bleeding Allergic/Immunologic: Allergic/Immunologic: Denies wheezing PMFSH Past Medical History Medical History (Updated 12/04/24 @ 08:23 by Agiular Villegas MD) Arterial vascular disease AVN (avascular necrosis of bone) Type 2 diabetes mellitus Patellofemoral arthritis of left knee HTN (hypertension) CAD (coronary artery disease) 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, malignant Surgical History Surgical History S/P CABG x 5 Social History Social History Smoking status: Former smoker Smoking end date: 06/05/10 Alcohol intake: former Substance use: never Do You Feel Safe in your Home?: Yes Lack of Transportation: No Lack of Food: Never True Current Housing: I Have Housing Concerned About Future Housing: No Difficulty Paying Gas/Electric Bills: No Difficulty Paying for Meds: No Currently Unemployed: No Education: Trade/Vocational Certificate Difficulty w/ Childcare or Family Care: No Spiritual care concerns: No Meds Home Medications and Allergies Home Medications ?Medication ?Instructions ?Recorded ?Confirmed ?Type hydralazine 100 mg tablet 100 mg PO BID #180 tabs 10/15/24 12/01/24 Rx amlodipine 10 mg tablet 20 mg PO DAILY 12/01/24 12/01/24 History carvedilol 25 mg tablet 25 mg PO Q12H 12/01/24 12/01/24 History colesevelam 625 mg tablet 625 mg PO BID 12/01/24 12/01/24 History ergocalciferol (vitamin D2) 1,250 1,250 mcg PO WEEKLY 12/01/24 12/01/24 History mcg (50,000 unit) capsule furosemide 20 mg tablet 20 mg PO DAILY 12/01/24 12/01/24 History insulin aspart 1 sliding scale dose subcut ACHS 12/01/24 12/01/24 History (niacinamide)(U-100) 100 unit/mL(3 mL) subcutaneous pen (Fiasp FlexTouch U-100 Insulin) insulin degludec 100 unit/mL (3 5 unit subcut QPM 12/01/24 12/01/24 History mL) subcutaneous pen (Tresiba FlexTouch U-100 insulin) pitavastatin calcium 4 mg tablet 4 mg PO DAILY 12/01/24 12/01/24 History ripretinib 50 mg tablet (Qinlock) 50 mg PO DAILY 12/01/24 12/01/24 History sodium bicarbonate 650 mg tablet 650 mg PO BID 12/01/24 12/01/24 History tamsulosin 0.4 mg capsule 0.4 mg PO HS 12/01/24 12/01/24 History Allergies Allergy/AdvReac Type Severity Reaction Status Date / Time No Known Allergies Allergy Verified 11/10/24 11:43 Vital Signs Vital Signs - 24 hr 12/03/24 08:30 12/03/24 08:45 12/03/24 09:00 Temperature Pulse Rate 70 75 67 Respiratory Rate Blood Pressure 131/65 147/64 H 145/61 H Pulse Oximetry Oxygen Delivery 12/03/24 09:15 12/03/24 09:30 12/03/24 09:45 Temperature Pulse Rate 67 63 71 Respiratory Rate Blood Pressure 148/67 H 147/57 H 155/69 H Pulse Oximetry Oxygen Delivery 12/03/24 10:00 12/03/24 10:15 12/03/24 10:30 Temperature Pulse Rate 68 70 72 Respiratory Rate Blood Pressure 162/74 H 148/64 H 161/80 H Pulse Oximetry Oxygen Delivery 12/03/24 10:45 12/03/24 11:00 12/03/24 11:15 Temperature Pulse Rate 58 L 67 66 Respiratory Rate Blood Pressure 162/75 H 161/75 H 159/76 H Pulse Oximetry Oxygen Delivery 12/03/24 11:28 12/03/24 11:37 12/03/24 12:00 Temperature 98.4 F 99.1 F Pulse Rate 67 72 72 Respiratory Rate 18 18 Blood Pressure 155/69 H 153/77 H 152/58 H Pulse Oximetry 96 98 Oxygen Delivery 12/03/24 12:00 12/03/24 12:00 12/03/24 12:02 Temperature Pulse Rate 79 72 Respiratory Rate Blood Pressure Pulse Oximetry Oxygen Delivery Room Air 12/03/24 16:00 12/03/24 16:00 12/03/24 20:00 Temperature 99 F 98.1 F Pulse Rate 69 70 85 Respiratory Rate 18 20 Blood Pressure 148/60 H 162/64 H Pulse Oximetry 98 99 Oxygen Delivery 12/03/24 20:00 12/03/24 20:27 12/03/24 20:35 Temperature Pulse Rate 69 63 63 Respiratory Rate 20 Blood Pressure Pulse Oximetry 99 Oxygen Delivery Room Air 12/03/24 22:25 12/04/24 00:00 12/04/24 00:00 Temperature 98.3 F Pulse Rate 53 L 60 Respiratory Rate 20 Blood Pressure 153/49 H Pulse Oximetry 97 96 Oxygen Delivery Room Air 12/04/24 04:00 12/04/24 04:00 Temperature 97.4 F L Pulse Rate 88 57 L Respiratory Rate 20 Blood Pressure 148/46 H Pulse Oximetry 90 Oxygen Delivery Exam Const: General: in distress mild and respiratory and ill appearing acutely; No healthy appearing or confusion Orientation/consciousness: oriented to person, oriented to place, oriented to time and No confusion HENMT: Head: normocephalic, atraumatic and other ( Productive cough with sputum) Eyes: Conjunctivae: conjunctivae normal Sclera: sclerae normal Neck: Neck: supple and nontender Resp: Effort & Inspection: normal respiratory effort and no audible wheezes Cardio: Rhythm: regular rhythm Skin: General skin exam: no rashes or lesions noted Neuro: General: oriented to person, oriented to place, oriented to time and No confusion Extrem: Right upper extremity: normal to inspection Left upper extremity: shoulder/upper arm ( hemodialysis shunt) Right lower extremity: ankle Details: normal to inspection, swelling ( mild) Details: diffusely, abnormal ROM Details: with range as follows (ankle dorsiflexion -10 degrees, plantar flexion 40?, inversion 15?, eversion 15?) and other ( good stability all directions); no tenderness and no ecchymosis and foot Details: abnormal ROM of toe ( hallux MTP dorsiflexion 40, plantar flexion 20?), vascular exam Details: abnormal capillary refill Location: of all toes; dorsalis pedis pulse absent and posterior tibial pulse absent, tendon exam Details: active flexion abnormal and active extension abnormal, motor-sensory exam Details: two point discrimination abnormal Location: in all toes and light-touch abnormal Location: in all toes and other (Hallux metatarsophalangeal motion 20? dorsiflexion/10? plantar flexion) Left lower extremity: lower leg Details: pitting edema Details: 2+ ( diffuse lower leg), ankle Details: normal to inspection, tenderness, swelling ( moderate with 2+ pitting edema) Details: diffusely and abnormal ROM Details: with range as follows (ankle dorsiflexion -10 degrees, plantar flexion 40?, inversion 15?, eversion 15?) and foot Details: normal capillary refill, tenderness Location: of the plantar foot and of the calcaneus ( plantar heel) Details: with squeeze; not point-tender, abnormal ROM of toe, vascular exam Details: abnormal capillary refill Location: of all toes; dorsalis pedis pulse absent and posterior tivial pulse absent, tendon exam active flexion abnormal of the great toe and active extension abnormal of the great toe and motor-sensory exam two point discrimination abnormal and light-touch abnormal in all toes; no crepitus Psych: Affect: normal affect Diabetic Foot: Inspection: No foot deformity, Yes nail disorder, No infection and No ulceration Pulses: Left dorsalis pedis peripheral pulse: diminished, Right dorsalis pedis peripheral pulse: diminished, L posterior tibial pulse: diminished and Right posterior tibial pulse foot exam: diminished Monofilament Exam: L 1st metatarsals: absent, Left 3rd metatarsals monofilament exam: absent, L 5th metatarsals: absent, L great toe: absent, L 3rd toe: absent, L 5th toe: absent, Left medial mid foot: absent, Left lateral mid-foot: absent, Left mid-heel: decreased, Left mid-dorsum foot: absent, R 1st metatarsals: absent, R 3rd metatarsals: absent, R 5th metatarsals: absent, R great toe: absent, R 3rd toe: absent, R 5th toe: absent, Right medial mid foot: absent, Right lateral mid-foot: absent, Right mid-heel: decreased and Right mid-dorsum foot: absent Monofilament foot exam results: Left foot: abnormal and Right foot: abnormal Results Labs 12/04/24 05:14 12/04/24 05:14 Labs: Abnormal lab results 12/03/24 12/03/24 12/03/24 Range/Units 12:01 17:10 19:59 WBC (4.5-10.0) K/mm3 RBC (4.6-6.20) M/mm3 Hgb (14.0-18.0) g/dL Hct (42.0-52.0) % RDW (11.5-14.5) % MPV (7.4-10.4) fl Immature Gran % (Auto) (0-0.5) % Taylor % (Auto) (2.6-8.5) % Eos % (Auto) (0-4.4) % Taylor # (Auto) (0.1-0.6) K/mm3 Eos # (Auto) (0-0.3) K/mm3 Abs Immat Gran (auto) (0.00-0.031) K/mm3 ESR (0-20) mm/hr BUN (9-20) mg/dL Creatinine (0.7-1.3) mg/dL Estimated GFR (59 - ) Glucose (65-110) mg/dL POC Capillary Glucose 137 H 286 H 221 H (65-105) mg/dl Calcium (8.4-10.2) mg/dL Total Bilirubin (0.2-1.3) mg/dL C-Reactive Protein (<1.0) mg/dL Total Protein (6.3-8.2) g/dL Albumin (3.5-5.1) g/dL 12/04/24 12/04/24 Range/Units 05:14 07:41 WBC 10.5 H (4.5-10.0) K/mm3 RBC 3.77 L (4.6-6.20) M/mm3 Hgb 10.9 L (14.0-18.0) g/dL Hct 33.9 L (42.0-52.0) % RDW 14.9 H (11.5-14.5) % MPV 10.5 H (7.4-10.4) fl Immature Gran % (Auto) 0.8 H (0-0.5) % Taylor % (Auto) 10.8 H (2.6-8.5) % Eos % (Auto) 5.6 H (0-4.4) % Taylor # (Auto) 1.1 H (0.1-0.6) K/mm3 Eos # (Auto) 0.6 H (0-0.3) K/mm3 Abs Immat Gran (auto) 0.08 H (0.00-0.031) K/mm3 ESR 80 H (0-20) mm/hr BUN 31 H D (9-20) mg/dL Creatinine 4.97 H (0.7-1.3) mg/dL Estimated GFR 11 L (59 - ) Glucose 146 H (65-110) mg/dL POC Capillary Glucose 171 H (65-105) mg/dl Calcium 8.1 L (8.4-10.2) mg/dL Total Bilirubin 1.4 H (0.2-1.3) mg/dL C-Reactive Protein 17.2 H (<1.0) mg/dL Total Protein 6.2 L (6.3-8.2) g/dL Albumin 3.3 L (3.5-5.1) g/dL H & H 12/01/24 12/02/24 12/03/24 Range/Units 14:54 04:46 05:18 Hgb 11.5 L 10.9 L 9.8 L (14.0-18.0) g/dL Hct 36.1 L 34.2 L 31.4 L (42.0-52.0) % 12/04/24 Range/Units 05:14 Hgb 10.9 L (14.0-18.0) g/dL Hct 33.9 L (42.0-52.0) % All other labs normal. Diagnostic results Ankle/Foot x-ray: image reviewed ( Left foot radiographs show good alignment of the ankle and subtalar joint with minimal degenerative changes. No fracture or acute changes. Osteochondroma of the distal lateral tibia noted with chronic changes of the corresponding fibula.) Ankle/Foot CT: image reviewed ( Distal lateral tibial osteochondroma, chronic. No acute changes)
--- NOTE | 2024-12-04 08:41 | PCSTNOTE ---
Please refer to the Bedside Swallow Evaluation in the EMR. Please note, silent aspiration cannot be ruled out at bedside. The patient is a 79 year old male admitted with end stage renal disease. Orders received to complete a bedside swallow evaluation due to a persistent cough. The patient was seen bedside with the head of the bed elevated to 90 degrees. The patient was presented the following consistencies.: 5cc thin liquid, thin liquid via a cup, pudding/puree, and cracker consistency. Oral stage: The patient was viewed to have timely oral preparation across all consistencies without noted oral residual/pocketing. Pharyngeal stage: Timely swallow initiation was viewed with good laryngeal elevation and no noted coughing, choking, or vocal quality change for all consistencies trialed. Recommend: Continue current diet and no further speech services indicated at this time.
[2024-12-04] MEDS: ASPIRIN 81 MG ENTERIC TABLET PO (09:04)
[2024-12-04] MEDS: SODIUM BICARBONATE TAB 650 MG TABLET PO ×2 (09:04→16:39)
[2024-12-04] MEDS: FUROSEMIDE INJ 40 MG/4 ML VIAL 20 MG IV PUSH (09:04)
[2024-12-04 09:10] LABS: Uric Acid 3.8 mg/dL (3.5-8.5)
--- NOTE | 2024-12-04 10:43 | P.PNIM_ITS ---
Progress Note: A&P Assessment and Plan (1) Pneumonia: Code(s): J18.9 - Pneumonia, unspecified organism Status: Acute Assessment and Plan: patient presented with persistent cough and fever initial CK are was not showing pneumonia however chest CT was completed did show ground-glass opacities consistent with pneumonia * continue with IV cefepime and Flagyl pending cultures. COVID/influenza/ RSV negative * blood cultures NGTD * sputum cultures pending * guaifenesin * add incentive spirometer * Tessalon pearls * Duonebs PRN * viral respiratory panel was ordered and pending (2) Fever: Code(s): R50.9 - Fever, unspecified Status: Acute Assessment and Plan: Fever on arrival to ER with associated acute cough. Started feeling ill evening 11/28 prior to arrival, CXR was negative for pneumonia however CT chest showing ground-glass opacities in the medial lower lobes most consistent with pneumonia also AVN of left ankle being evaluated * Blood cultures NGTD * antipyretics p.r.n. * continue cefepime IV and Flagyl p.o. pending cultures will deescalate (3) AVN (avascular necrosis of bone): Code(s): M87.00 - Idiopathic aseptic necrosis of unspecified bone Status: Acute Assessment and Plan: Patient with HX of Left distal tibia lateral osteochondroma, chronic with chronic accompanying changes of the overlying fibula, ortho discussed conservative management as well as operative options. Patient is nontender over the area and no other symptoms associated with the osteochondroma. Tenderness on plantar heel. No erythema or fluctuance to suggest infection. pulse was palpable toady Concern for AVN or other necrosis. Ortho ordered MRI of the left ankle and ABBIE/TBI * PT/OT pending results (4) ESRD (end stage renal disease) on dialysis: Code(s): N18.6 - End stage renal disease; Z99.2 - Dependence on renal dialysis Status: Chronic Assessment and Plan: ESRD Monday, , Monday dialysis * nephrology consulted * Avoid nephrotoxic drugs. * Monitor antihypertensive drug therapy. * Avoid NSAIDs. * Routine CMP monitoring GFR. * Monitor electrolytes especially potassium. * Antibiotic doses depending on creatinine clearance. * Pharmacy does medications. (5) HTN (hypertension): Code(s): I10 - Essential (primary) hypertension Status: Chronic Assessment and Plan: * bp reviewed * continue amlodipine, hydralazine, and carvedilol * BP per unit protocol (6) Type 2 diabetes mellitus: Qualifiers: Chronic kidney disease stage: on chronic dialysis Diabetes mellitus complication detail: with chronic kidney disease Diabetes mellitus complication status: with kidney complications Diabetes mellitus prison insulin use: with buttermaker use Qualified Code(s): E11.22 - Type 2 diabetes mellitus with diabetic chronic kidney disease; N18.6 - End stage renal disease; Z79.4 - long term acute care registered nurse (current) use of insulin; Z99.2 - Dependence on renal dialysis Code(s): E11.9 - Type 2 diabetes mellitus without complications Status: Chronic Assessment and Plan: * Accu-Cheks a.cEros HS * SSI * diabetic/renal diet * hypoglycemic protocol * resume patient's long-acting insulin (7) CAD (coronary artery disease): Code(s): I25.10 - Atherosclerotic heart disease of [place] coronary artery without angina pectoris Status: Acute Assessment and Plan: patient with history of CABG * patient on pitavastatin non formulated here (8) Unsteady gait: Code(s): R26.81 - Unsteadiness on feet Status: Acute Assessment and Plan: patient reporting inability to ambulate for the last 2 weeks due to new onset acute pain to left ankle * ortho consulted evaluating for further treatment plans * will order PT/OT pending further treatment Plan Code status: Full code per patient DVT prophylaxis: Heparin Stress ulcer prophylaxis: Protonix 40 daily PT/OT notes: PT/OT pending Disposition: Patient continues admission left further evaluation on left ankle pain with MRI and ABIs will continue to treat for pneumonia per chest CT. PT/ OT evaluation pending results as well to determine discharge planning needs. Time Spent With Patient Time with patient: 15 - 25 minutes Subjective Date/time seen: 12/04/24 10:43 Interval history: Pt is a 79-year-old male here for cough and inability to ambulate due to foot injury. Patient states that he continues to have a cough that is productive wit h white sputum the. He usually is ambulating with a wheelchair for the last 2 weeks due to a foot injury. 12/05/2024 Patient still with persistant cough with mild improvement reports keeping him up at night and unable to lay flat. MR ankle and ABBIE pending I was able to palpate a pedal pulse today. Has remained afebrile and WBC trending down. Review of Systems Review of Systems: All systems reviewed & are unremarkable except as noted in HPI and below Exam Narrative: General: Well developed well nourished patient in NAD HEENT: normocephalic Neck: supple Neuro: Alert and oriented x4 CV:RRR Resp: Diminished throughout, rhonci heard lower left lobe, non-productive dry cough Abd: Soft, non distended. No pain to palpation. Positive bowel sounds Extremities: No significant swelling, erythema, or pain to palpation. Left foot with bruising to the lateral aspect, palpable pedal pulse to LLE Objective Data Vital Signs Vital Signs: Vital Signs - 24 hr 12/03/24 10:45 12/03/24 11:00 12/03/24 11:15 Temperature Pulse Rate 58 L 67 66 Respiratory Rate Blood Pressure 162/75 H 161/75 H 159/76 H Pulse Oximetry Oxygen Delivery 12/03/24 11:28 12/03/24 11:37 12/03/24 12:00 Temperature 98.4 F 99.1 F Pulse Rate 67 72 72 Respiratory Rate 18 18 Blood Pressure 155/69 H 153/77 H 152/58 H Pulse Oximetry 96 98 Oxygen Delivery 12/03/24 12:00 12/03/24 12:00 12/03/24 12:02 Temperature Pulse Rate 79 72 Respiratory Rate Blood Pressure Pulse Oximetry Oxygen Delivery Room Air 12/03/24 16:00 12/03/24 16:00 12/03/24 20:00 Temperature 99 F 98.1 F Pulse Rate 69 70 85 Respiratory Rate 18 20 Blood Pressure 148/60 H 162/64 H Pulse Oximetry 98 99 Oxygen Delivery 12/03/24 20:00 12/03/24 20:27 12/03/24 20:35 Temperature Pulse Rate 69 63 63 Respiratory Rate 20 Blood Pressure Pulse Oximetry 99 Oxygen Delivery Room Air 12/03/24 22:25 12/04/24 00:00 12/04/24 00:00 Temperature 98.3 F Pulse Rate 53 L 60 Respiratory Rate 20 Blood Pressure 153/49 H Pulse Oximetry 97 96 Oxygen Delivery Room Air 12/04/24 04:00 12/04/24 04:00 12/04/24 08:00 Temperature 97.4 F L 98.1 F Pulse Rate 88 57 L 67 Respiratory Rate 20 16 Blood Pressure 148/46 H 155/57 H Pulse Oximetry 90 94 Oxygen Delivery 12/04/24 09:03 Temperature Pulse Rate 76 Respiratory Rate Blood Pressure Pulse Oximetry Oxygen Delivery Intake/Output Intake/Output: Intake & Output 12/01/24 12/02/24 12/03/24 12/04/24 23:59 23:59 23:59 23:59 Intake Total 1150 1200 1360 390 Output Total 650 1425 300 Balance 1150 550 -65 90 Meds/Results Medications: Active Medications Generic Name Dose Route Start Last Admin Trade Name Freq PRN Reason Stop Dose Admin Acetaminophen 650 mg 12/01/24 17:07 12/03/24 03:17 Acetaminophen 325 Mg Tablet PO 650 mg Q4H PRN Administration Mild Pain (1-3) or Fever Albuterol/Ipratropium 3 ml 12/03/24 14:50 Ipratropium 0.5 Mg/Albuterol Sulfate 2.5 Mg Ampul.Neb 3 Ml INHALATION Q6HRT PRN Wheezing Amlodipine Besylate 20 mg 12/02/24 09:00 12/04/24 09:03 Amlodipine Besylate 10 Mg Tablet PO 20 mg DAILY RACHEL Administration Aspirin 81 mg 12/03/24 10:30 12/04/24 09:04 Aspirin 81 Mg Enteric Tablet PO 81 mg QAM RACHEL Administration Carvedilol 25 mg 12/01/24 21:10 12/04/24 09:03 Carvedilol 25 Mg Tablet PO 25 mg Q12HR RACHEL Administration Dextrose 12.5 gm 12/01/24 22:01 Dextrose 50% 25 Gm/50 Ml Syringe IV PUSH PRN PRN Hypoglycemia Protocol Ergocalciferol 1,250 mcg 12/08/24 09:00 Ergocalciferol (Vitamin D2) 1,250 Mcg (50,000 Units) Capsule PO WEEKLY RACHEL Furosemide 20 mg 12/01/24 21:10 12/04/24 09:04 Furosemide Inj 40 Mg/4 Ml Vial IV PUSH 20 mg DAILY RACHEL Administration Glucagon 1 mg 12/01/24 22:01 Glucagon For Inj 1 Mg Vial IM PRN PRN Hypoglycemia Protocol Glucose 15 gm 12/01/24 22:01 Glucose Oral Gel 15 Gm Of Glucse In 37.5 Gm Tube PO PRN PRN Hypoglycemia Protocol Guaifenesin/Dextromethorphan 10 ml 12/01/24 21:07 12/04/24 09:27 Guaifenesin/Dextromethorphan 10 Ml Udc PO 10 ml Q4H PRN Administration Cough Heparin Sodium (Porcine) 5,000 units 12/01/24 21:05 12/04/24 09:06 Heparin Sodium 5,000 Units/Ml Vial SUB-Q 5,000 units Q12HR RACHEL Administration Hydralazine HCl 100 mg 12/01/24 21:10 12/04/24 09:03 Hydralazine Hcl 50 Mg Tablet PO 100 mg Q12HR RACHEL Administration Cefepime HCl 1 gm in 50 mls @ 100 mls/hr 12/02/24 16:00 12/03/24 17:34 Maxipime 1 Gm/Ns 50 Ml IVPB Infused Q24H RACHEL Infusion Albumin Human 50 mls @ 999 mls/hr 12/03/24 06:27 Albutein IVPB 01/02/25 06:26 Q10M PRN HYPOTENSION Insulin Aspart 2 - 5 units 12/02/24 08:00 12/04/24 08:23 Insulin Aspart (*Bkc) 100 Units/Ml SUB-Q Not Given [facility] Protocol Insulin Glargine 5 units 12/01/24 22:00 12/03/24 20:28 Insulin Glargine (*Bkc) 100 Units/Ml SUB-Q 5 units HS RACHEL Administration Melatonin 3 mg 12/03/24 21:00 12/03/24 20:27 Melatonin 3 Mg Tablet PO 3 mg HS RACHEL Administration Metronidazole 500 mg 12/02/24 22:00 12/04/24 05:23 Metronidazole 500 Mg Tablet PO 500 mg Q8HR RACHEL Administration Home Med (Ripretinib 50 mg 12/02/24 21:00 12/03/24 20:28 [Qinlock] 50 Mg PO 01/01/25 20:59 50 mg Tablet) QHS RACHEL Administration Ondansetron HCl 4 mg 12/01/24 17:07 12/01/24 23:37 Ondansetron Inj 4 Mg/2 Ml Vial IV PUSH 4 mg Q4H PRN Administration Nausea Sodium Bicarbonate 650 mg 12/01/24 21:10 12/04/24 09:04 Sodium Bicarbonate Tab 650 Mg Tablet PO 650 mg BID RACHEL Administration Tamsulosin HCl 0.4 mg 12/01/24 21:10 12/03/24 20:27 Tamsulosin Hcl 0.4 Mg Capsule PO 0.4 mg HS RACHEL Administration Radiology Results: ITS Impressions Chest X-Ray 12/01/24 16:13 IMPRESSION: No acute cardiopulmonary process. Chest CT 12/03/24 15:02 Impression: Patchy consolidation of groundglass opacity in the lingula, which more minimal involvement in the medial lower lobes and medial right middle lobe. Findings are most compatible with pneumonia. Correlate for pulmonary edema. Small bilateral pleural effusions with mild left basilar atelectasis. Stable mediastinal lymphadenopathy, nonspecific. Cholelithiasis. Foot X-Ray 12/03/24 15:09 Impression: No acute abnormality. Probable old healed fracture of the distal fibular shaft. Labs Labs: Laboratory Results - last 24 hr 12/03/24 12/03/24 12/03/24 12:01 17:10 19:59 WBC RBC Hgb Hct MCV MCH MCHC RDW Plt Count MPV Immature Gran % (Auto) Neut % (Auto) Lymph % (Auto) [place] % (Auto) Eos % (Auto) Baso % (Auto) Lymph # (Auto) [place] # (Auto) Eos # (Auto) Baso # (Auto) Abs Immat Gran (auto) Absolute Neuts (auto) Absolute Nucleated RBC Nucleated RBC % ESR Sodium Potassium Chloride Carbon Dioxide Anion Gap BUN Creatinine Estim Creat Clear Calc Estimated GFR Glucose POC Capillary Glucose 137 H 286 H 221 H Uric Acid Calcium Phosphorus Magnesium Total Bilirubin AST ALT Alkaline Phosphatase C-Reactive Protein Total Protein Albumin Procalcitonin 12/04/24 12/04/24 05:14 07:41 WBC 10.5 H RBC 3.77 L Hgb 10.9 L Hct 33.9 L MCV 89.9 MCH 28.9 MCHC 32.2 RDW 14.9 H Plt Count 165 MPV 10.5 H Immature Gran % (Auto) 0.8 H Neut % (Auto) 63.7 Lymph % (Auto) 18.3 [place] % (Auto) 10.8 H Eos % (Auto) 5.6 H Baso % (Auto) 0.8 Lymph # (Auto) 1.92 [place] # (Auto) 1.1 H Eos # (Auto) 0.6 H Baso # (Auto) 0.1 Abs Immat Gran (auto) 0.08 H Absolute Neuts (auto) 6.7 Absolute Nucleated RBC 0.000 Nucleated RBC % 0.0 ESR 80 H Sodium 137 Potassium 3.9 Chloride 100 Carbon Dioxide 27 Anion Gap 10 BUN 31 H D Creatinine 4.97 H Estim Creat Clear Calc 13 Estimated GFR 11 L Glucose 146 H POC Capillary Glucose 171 H Uric Acid 3.8 Calcium 8.1 L Phosphorus 3.7 Magnesium 2.1 Total Bilirubin 1.4 H AST 26 ALT 12 Alkaline Phosphatase 78 C-Reactive Protein 17.2 H Total Protein 6.2 L Albumin 3.3 L Procalcitonin Cancelled Quality VTE Prophylaxis VTE prophylaxis: mechanical ordered and pharmacologic ordered -Patient's previous records reviewed on admission -ER notes reviewed in detail on admission -discussed all findings and current treatment plan with patient/Family/POA -Consultations reviewed for recommendations -Patient's disposition for safe discharge discussed with rn case mgr Dictation performed by [employer] direct speech recognition software, therefore parking worker variants and typographical errors may occur. Hospitalist MIPS Advance Care Plan I have confirmed that the patient's Advanced Care Plan is present, code status is documented, or surrogate decision maker is listed in patient medical record.: Yes Medication Reconciliation I have utilized all available resources to obtain, update and review the patients current medications (includes all prescriptions, OTC, herbals, cannabis, and nutritional supplements).: Yes The patient is not eligible for med reconciliation; the patient is in a emergent medical situation where delaying treatment would jeopardize the patients health.: No
[2024-12-04] MEDS: INSULIN ASPART (*BKC) 100 UNITS/ML SUB-Q ×2 (12:40→17:31)
--- NOTE | 2024-12-04 13:03 | P.PNNP_ITS ---
Progress Note: A&P Assessment and Plan (1) End stage renal disease: Code(s): N18.6 - End stage renal disease Status: Chronic Assessment and Plan: * HD tomorrow * continue //Monday dialysis schedule while hospitalized * follow electrolytes, volume status, and clearance (2) Low grade fever: Code(s): R50.9 - Fever, unspecified Status: Acute Assessment and Plan: * as noted in the ER (37.7?/99.9?) * noted again at 11:37PM on 12/01 and 3:47AM on 12/02 * no further fevers noted * etiology no clear: * CXR no evident pneumonia * UA no evidence infection * cultures negative to date * viral testing for influenza/COVID/RSV negative * respiratory pathogen penal pending * continue supportive therapy (3) Cough: Code(s): R05.9 - Cough, unspecified Status: Acute Assessment and Plan: * now productive with white sputum * sputum cultures and respiratory panel pending * on Robitussin and nebulizer treatments * CXR results noted * CT of chest ordered for today (4) Pneumonia: Code(s): J18.9 - Pneumonia, unspecified organism Status: Acute Assessment and Plan: * presumed etiology of #2 and #3 * CT of chest with ground-glass opacities consistent with pneumonia * on antibiotics * blood cultures NGTD * sputum cultures pending * continue supportive therap: * guaifenesin * incentive spirometer * Tessalon pearls * Duonebs PRN * follow respiratory status (5) Anemia: Code(s): D64.9 - Anemia, unspecified Status: Acute Assessment and Plan: * due to ESRD * Epogen with HD * follow trend of H/H (6) Hypertension: Code(s): I10 - Essential (primary) hypertension Status: Chronic Assessment and Plan: * fluctuating * continue home medications * follow trend of hemodynamics (7) Arthritis of ankle, left, degenerative: Qualifiers: Osteoarthritis type: primary Qualified Code(s): M19.072 - Primary osteoarthritis, left ankle and foot Code(s): M19.072 - Primary osteoarthritis, left ankle and foot Status: Acute Assessment and Plan: * Orthopedics following * recommendations noted * PT/OT as tolerated (8) Type 2 diabetes mellitus: Qualifiers: Diabetes mellitus exterminator insulin use: with mcc use Diabetes mellitus complication status: with kidney complications Diabetes mellitus complication detail: with chronic kidney disease Chronic kidney disease stage: on chronic dialysis Qualified Code(s): E11.22 - Type 2 diabetes mellitus with diabetic chronic kidney disease; N18.6 - End stage renal disease; Z79.4 - FPC (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 L Subjective Date/time seen: 12/04/24 13:03 Interval history: Follow-up for end stage renal disease on hemodialysis. Tolerated dialysis treatment yesterday without any issues or problems; continues to have an ongoing cough that has not significantly improved since admission which does not allow him to sleep or lay down; CT of chest yesterday demonstrated evidence of pneumonia despite negative CXR on admission. Exam 2 Narrative: General: elderly but WD/WN male in NAD Heart: normal S1 and S2; no rub Lungs: coarse breath sounds; decreased at bases Abdomen: soft, nontender, nondistended, positive bowel sounds Extremities: no cyanosis or clubbing; trace edema Skin: warm and intact Objective Data Vital Signs Vital Signs: Vital Signs Temp Pulse Resp BP Pulse Ox O2 Del Method 12/04/24 12:00 58 L 12/04/24 09:03 76 12/04/24 09:00 Room Air 12/04/24 08:00 64 12/04/24 08:00 98.1 F 67 16 155/57 H 94 12/04/24 04:00 57 L 12/04/24 04:00 97.4 F L 88 20 148/46 H 90 12/04/24 00:00 98.3 F 60 20 153/49 H 96 12/04/24 00:00 53 L 12/03/24 22:25 97 Room Air 12/03/24 20:35 63 20 99 Room Air 12/03/24 20:27 63 12/03/24 20:00 69 12/03/24 20:00 98.1 F 85 20 162/64 H 99 Intake/Output Intake/Output: Intake & Output 12/01/24 12/02/24 12/03/24 12/04/24 23:59 23:59 23:59 23:59 Intake Total 1150 1200 1360 1110 Output Total 650 1425 1100 Balance 1150 550 -65 10 Meds/Results Medications: Active Medications Generic Name Dose Route Start Last Admin Trade Name Frejuan PRN Reason Stop Dose Admin Acetaminophen 650 mg 12/01/24 17:07 12/03/24 03:17 Acetaminophen 325 Mg Tablet PO 650 mg Q4H PRN Administration Mild Pain (1-3) or Fever Albuterol/Ipratropium 3 ml 12/03/24 14:50 Ipratropium 0.5 Mg/Albuterol Sulfate 2.5 Mg Ampul.Neb 3 Ml INHALATION Q6HRT PRN Wheezing Amlodipine Besylate 20 mg 12/02/24 09:00 12/04/24 09:03 Amlodipine Besylate 10 Mg Tablet PO 20 mg DAILY RACHEL Administration Aspirin 81 mg 12/03/24 10:30 12/04/24 09:04 Aspirin 81 Mg Enteric Tablet PO 81 mg QAM RACHEL Administration Benzonatate 200 mg 12/04/24 17:00 12/04/24 16:39 Benzonatate 100 Mg Capsule PO 200 mg TID RACHEL Administration Carvedilol 25 mg 12/01/24 21:10 12/04/24 09:03 Carvedilol 25 Mg Tablet PO 25 mg Q12HR RACHEL Administration Dextrose 12.5 gm 12/01/24 22:01 Dextrose 50% 25 Gm/50 Ml Syringe IV PUSH PRN PRN Hypoglycemia Protocol Ergocalciferol 1,250 mcg 12/08/24 09:00 Ergocalciferol (Vitamin D2) 1,250 Mcg (50,000 Units) Capsule PO WEEKLY RACHEL Furosemide 20 mg 12/01/24 21:10 12/04/24 09:04 Furosemide Inj 40 Mg/4 Ml Vial IV PUSH 20 mg DAILY RACHEL Administration Glucagon 1 mg 12/01/24 22:01 Glucagon For Inj 1 Mg Vial IM PRN PRN Hypoglycemia Protocol Glucose 15 gm 12/01/24 22:01 Glucose Oral Gel 15 Gm Of Glucse In 37.5 Gm Tube PO PRN PRN Hypoglycemia Protocol Guaifenesin 1,200 mg 12/04/24 21:00 Guaifenesin 12 Hr 600 Mg Tabcr PO Q12HR RACHEL Heparin Sodium (Porcine) 5,000 units 12/01/24 21:05 12/04/24 09:06 Heparin Sodium 5,000 Units/Ml Vial SUB-Q 5,000 units Q12HR RACHEL Administration Hydralazine HCl 100 mg 12/01/24 21:10 12/04/24 09:03 Hydralazine Hcl 50 Mg Tablet PO 100 mg Q12HR RACHEL Administration Cefepime HCl 1 gm in 50 mls @ 100 mls/hr 12/02/24 16:00 12/04/24 17:09 Maxipime 1 Gm/Ns 50 Ml IVPB Infused Q24H RACHEL Infusion Albumin Human 50 mls @ 999 mls/hr 12/03/24 06:27 Albutein IVPB 01/02/25 06:26 Q10M PRN HYPOTENSION Insulin Aspart 2 - 5 units 12/02/24 08:00 12/04/24 17:31 Insulin Aspart (*Bkc) 100 Units/Ml SUB-Q 2 units TIDWM RACHEL Administration Protocol Insulin Glargine 5 units 12/01/24 22:00 12/03/24 20:28 Insulin Glargine (*Bkc) 100 Units/Ml SUB-Q 5 units HS RACHEL Administration Loratadine 10 mg 12/04/24 21:00 Loratadine 10 Mg Tablet PO QHS RACHEL Melatonin 3 mg 12/03/24 21:00 12/03/24 20:27 Melatonin 3 Mg Tablet PO 3 mg HS RACHEL Administration Metronidazole 500 mg 12/02/24 22:00 12/04/24 15:11 Metronidazole 500 Mg Tablet PO 500 mg Q8HR RACHEL Administration Home Med (Ripretinib 50 mg 12/02/24 21:00 12/03/24 20:28 [Qinlock] 50 Mg PO 01/01/25 20:59 50 mg Tablet) QHS RACHEL Administration Ondansetron HCl 4 mg 12/01/24 17:07 12/01/24 23:37 Ondansetron Inj 4 Mg/2 Ml Vial IV PUSH 4 mg Q4H PRN Administration Nausea Sodium Bicarbonate 650 mg 12/01/24 21:10 12/04/24 16:39 Sodium Bicarbonate Tab 650 Mg Tablet PO 650 mg BID RACHEL Administration Tamsulosin HCl 0.4 mg 12/01/24 21:10 12/03/24 20:27 Tamsulosin Hcl 0.4 Mg Capsule PO 0.4 mg HS RACHEL Administration Radiology Results: ITS Impressions Chest X-Ray 12/01/24 16:13 IMPRESSION: No acute cardiopulmonary process. Chest CT 12/03/24 15:02 Impression: Patchy consolidation of groundglass opacity in the lingula, which more minimal involvement in the medial lower lobes and medial right middle lobe. Findings are most compatible with pneumonia. Correlate for pulmonary edema. Small bilateral pleural effusions with mild left basilar atelectasis. Stable mediastinal lymphadenopathy, nonspecific. Cholelithiasis. Foot X-Ray 12/03/24 15:09 Impression: No acute abnormality. Probable old healed fracture of the distal fibular shaft. Ankle MRI 12/04/24 14:18 IMPRESSION: 1. 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 2. 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 3. Moderate to severe fatty atrophy and diffuse increased muscular fluid signal in the intrinsic musculature of the foot suggestive of acute on chronic denervation change. 4. I can't. The the calcaneal insertions of the distal Achilles tendon and proximal plantar aponeurosis. Labs Labs: Laboratory Tests 12/04/24 05:14 12/04/24 05:14 ESR 80 H Uric Acid 3.8 Calcium 8.1 L Phosphorus 3.7 Magnesium 2.1 Total Bilirubin 1.4 H AST 26 ALT 12 Alkaline Phosphatase 78 C-Reactive Protein 17.2 H Total Protein 6.2 L Albumin 3.3 L Procalcitonin 1.5 Microbiology 12/02/24 12:44 Sputum Sputum Culture - Preliminary
[2024-12-04 13:43] LABS: Procalcitonin 1.5 ng/mL
[2024-12-04] MEDS: BENZONATATE 100 MG CAPSULE 200 MG PO (16:39)
[2024-12-04] MEDS: CEFEPIME 1 GM/NS 50 ML 1 GM/50 ML BAG IVPB (16:39)
[2024-12-04] MEDS: guaiFENesin 12 HR 600 MG TABCR 1200 MG PO (20:13)
[2024-12-04] MEDS: TAMSULOSIN HCL 0.4 MG CAPSULE PO (20:13)
[2024-12-04] MEDS: INSULIN GLARGINE (*BKC) 100 UNITS/ML SUB-Q (20:14)
[2024-12-04] MEDS: LORATADINE 10 MG TABLET PO (20:14)
[2024-12-04] MEDS: MELATONIN 3 MG TABLET PO (20:14)
[2024-12-04] MEDS: [UNRECOGNIZED DRUG - OTHER] 50 EACH PO (22:39)
[2024-12-04] MEDS: IPRATROPIUM 0.5 MG/ALBUTEROL SULFATE 2.5 MG AMPUL.NEB 3 ML INHALATION (23:39)
[2024-12-05] VITALS (29 sets, daily range): BP systolic 135–176; BP diastolic 48–84; PULSE 55–82; RESP 18–28; TEMP 36.4–37.4; O2SAT 91–98
[2024-12-05] MEDS: ACETAMINOPHEN 325 MG TABLET 650 MG PO (00:58)
[2024-12-05 05:08] LABS: Hematocrit 33.0 % (42.0-52.0); Hemoglobin 10.7 g/dL (14.0-18.0); Immature Granulocyte Percent A 1.3 % (0-0.5); Lymphocytes Absolute Auto 2.31 K/mm3 (0.9-3.2); Mean Corpuscular HGB Conc 32.4 g/dl (32-36); Mean Corpuscular Hemoglobin 29.2 pg (26-34); Mean Corpuscular Volume 90.2 fl (80-100); Nucleated Red Blood Cells Absolute Auto 0.000 K/mm3 (0.0-0.012); Nucleated Red Blood Cells Perc 0.0 % (0.0-0.2); Platelet Count Result 167 k/mm3 (150-375); Red Blood Count 3.66 M/mm3 (4.6-6.20); White Blood Count 10.3 K/mm3 (4.5-10.0)
[2024-12-05 05:19] LABS: Alanine Aminotransferase 11 U/L (6-50); Albumin Level 3.4 g/dL (3.5-5.1); Alkaline Phosphatase 74 U/L (38-126); Anion Gap 12 mmol/L (4-12); Aspartate Amino Transferase 23 U/L (17-59); Bilirubin,Total 1.4 mg/dL (0.2-1.3); Blood Urea Nitrogen 40 mg/dL (9-20); Calcium 7.9 mg/dL (8.4-10.2); Carbon Dioxide 24 mmol/L (22-30); Chloride 99 mmol/L (98-107); Estimated CRCL calculation 11 ml/min; Estimated Glomerular Filt Rate 9; Glucose 168 mg/dL (65-110); Magnesium 2.1 mg/dL (1.6-2.3); Potassium 4.0 mmol/L (3.4-5.0); Sodium 135 mmol/L (137-145); Total Protein 6.3 g/dL (6.3-8.2)
[2024-12-05] MEDS: FUROSEMIDE INJ 40 MG/4 ML VIAL 20 MG IV PUSH (08:06)
[2024-12-05] MEDS: BENZONATATE 100 MG CAPSULE 200 MG PO ×3 (08:09→17:33)
[2024-12-05] MEDS: ASPIRIN 81 MG ENTERIC TABLET PO (08:10)
[2024-12-05] MEDS: guaiFENesin 12 HR 600 MG TABCR 1200 MG PO ×2 (08:10→20:42)
[2024-12-05] MEDS: SODIUM BICARBONATE TAB 650 MG TABLET PO ×2 (08:11→17:33)
--- NOTE | 2024-12-05 10:10 | P.PNNP_ITS ---
Progress Note: A&P Assessment and Plan (1) End stage renal disease: Code(s): N18.6 - End stage renal disease Status: Chronic Assessment and Plan: * HD today * continue //Monday dialysis schedule while hospitalized * follow electrolytes, volume status, and clearance (2) Low grade fever: Code(s): R50.9 - Fever, unspecified Status: Acute Assessment and Plan: * as noted in the ER (37.7?/99.9?) * noted again at 11:37PM on 12/01 and 3:47AM on 12/02 * no further fevers noted * etiology no clear: * CXR no evident pneumonia * UA no evidence infection * cultures negative to date * viral testing for influenza/COVID/RSV negative * respiratory pathogen penal pending * continue supportive therapy (3) Cough: Code(s): R05.9 - Cough, unspecified Status: Acute Assessment and Plan: * now productive with white sputum * sputum cultures and respiratory panel pending * on Robitussin and nebulizer treatments * CXR results noted * CT of chest ordered for today (4) Pneumonia: Code(s): J18.9 - Pneumonia, unspecified organism Status: Acute Assessment and Plan: * presumed etiology of #2 and #3 * CT of chest with ground-glass opacities consistent with pneumonia * on antibiotics * blood cultures NGTD * sputum cultures pending * continue supportive therap: * guaifenesin * incentive spirometer * Tessalon pearls * Duonebs PRN * follow respiratory status (5) Anemia: Code(s): D64.9 - Anemia, unspecified Status: Acute Assessment and Plan: * due to ESRD * Epogen with HD * follow trend of H/H (6) Hypertension: Code(s): I10 - Essential (primary) hypertension Status: Chronic Assessment and Plan: * fluctuating * continue home medications * follow trend of hemodynamics (7) Arthritis of ankle, left, degenerative: Qualifiers: Osteoarthritis type: primary Qualified Code(s): M19.072 - Primary osteoarthritis, left ankle and foot Code(s): M19.072 - Primary osteoarthritis, left ankle and foot Status: Acute Assessment and Plan: * Orthopedics following * recommendations noted * PT/OT as tolerated (8) Type 2 diabetes mellitus: Qualifiers: Diabetes mellitus shelter insulin use: with shelter use Diabetes mellitus complication status: with kidney complications Diabetes mellitus complication detail: with chronic kidney disease Chronic kidney disease stage: on chronic dialysis Qualified Code(s): E11.22 - Type 2 diabetes mellitus with diabetic chronic kidney disease; N18.6 - End stage renal disease; Z79.4 - senior care (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 L Subjective Date/time seen: 12/05/24 10:10 Interval history: Follow-up for end stage renal disease on hemodialyis. Tolerating dialysis treatment at the time of my visit (seen on HD at 10:00am); cough seems to be doing better when seen but still persists in general; does not want anymore than 1L fluid removal with HD today; no other events overnight or earlier this morning. Exam 2 Narrative: General: elderly but WD/WN male in NAD Heart: normal S1 and S2; no rub Lungs: coarse breath sounds; decreased at bases Abdomen: soft, nontender, nondistended, positive bowel sounds Extremities: no cyanosis or clubbing; trace edema Skin: no rash Objective Data Vital Signs Vital Signs: Vital Signs Temp Pulse Resp BP Pulse Ox O2 Del Method 12/05/24 10:00 68 157/69 H 12/05/24 09:45 63 157/71 H 12/05/24 09:30 62 157/61 H 12/05/24 09:15 62 154/66 H 12/05/24 09:09 55 L 138/74 12/05/24 08:48 98.1 F 62 28 H 153/63 H 98 12/05/24 08:19 Room Air 12/05/24 08:10 66 12/05/24 08:00 64 12/05/24 08:00 98.3 F 58 L 18 143/60 H 91 12/05/24 04:00 97.7 F 60 18 164/53 H 97 12/05/24 04:00 57 L 12/05/24 00:00 56 L 12/05/24 00:00 97.6 F 60 18 155/57 H 97 12/04/24 23:45 61 20 12/04/24 23:41 93 Room Air 12/04/24 23:39 56 L 20 12/04/24 20:13 70 12/04/24 20:00 62 12/04/24 20:00 98.0 F 70 18 155/46 H 90 Intake/Output Intake/Output: Intake & Output 12/02/24 12/03/24 12/04/24 12/05/24 23:59 23:59 23:59 23:59 Intake Total 1200 1360 1230 720 Output Total 650 1425 1400 2025 Balance 360 -49 -760 -2248 Meds/Results Medications: Active Medications Generic Name Dose Route Start Last Admin Trade Name Freq PRN Reason Stop Dose Admin Acetaminophen 650 mg 12/01/24 17:07 12/05/24 00:58 Acetaminophen 325 Mg Tablet PO 650 mg Q4H PRN Administration Mild Pain (1-3) or Fever Albuterol/Ipratropium 3 ml 12/03/24 14:50 12/04/24 23:39 Ipratropium 0.5 Mg/Albuterol Sulfate 2.5 Mg Ampul.Neb 3 Ml INHALATION 3 ml Q6HRT PRN Administration Wheezing Amlodipine Besylate 20 mg 12/02/24 09:00 12/05/24 08:10 Amlodipine Besylate 10 Mg Tablet PO 20 mg DAILY RACHEL Administration Aspirin 81 mg 12/03/24 10:30 12/05/24 08:10 Aspirin 81 Mg Enteric Tablet PO 81 mg QAM RACHEL Administration Benzonatate 200 mg 12/04/24 17:00 12/05/24 13:23 Benzonatate 100 Mg Capsule PO 200 mg TID RACHEL Administration Carvedilol 25 mg 12/01/24 21:10 12/05/24 08:10 Carvedilol 25 Mg Tablet PO 25 mg Q12HR RACHEL Administration Dextrose 12.5 gm 12/01/24 22:01 Dextrose 50% 25 Gm/50 Ml Syringe IV PUSH PRN PRN Hypoglycemia Protocol Epoetin Robert-epbx 4,000 units 12/05/24 18:10 12/05/24 11:45 Epoetin Robert-Epbx 4,000 Units/Ml Vial IV PUSH 12/05/24 18:11 4,000 units ONCE ONE Administration Ergocalciferol 1,250 mcg 12/08/24 09:00 Ergocalciferol (Vitamin D2) 1,250 Mcg (50,000 Units) Capsule PO WEEKLY RACHEL Furosemide 20 mg 12/01/24 21:10 12/05/24 08:06 Furosemide Inj 40 Mg/4 Ml Vial IV PUSH 20 mg DAILY RACHEL Administration Glucagon 1 mg 12/01/24 22:01 Glucagon For Inj 1 Mg Vial IM PRN PRN Hypoglycemia Protocol Glucose 15 gm 12/01/24 22:01 Glucose Oral Gel 15 Gm Of Glucse In 37.5 Gm Tube PO PRN PRN Hypoglycemia Protocol Guaifenesin 1,200 mg 12/04/24 21:00 12/05/24 08:10 Guaifenesin 12 Hr 600 Mg Tabcr PO 1,200 mg Q12HR RACHEL Administration Heparin Sodium (Porcine) 5,000 units 12/01/24 21:05 12/05/24 08:07 Heparin Sodium 5,000 Units/Ml Vial SUB-Q 5,000 units Q12HR RACHEL Administration Hydralazine HCl 100 mg 12/01/24 21:10 12/05/24 08:09 Hydralazine Hcl 50 Mg Tablet PO 100 mg Q12HR RACHEL Administration Cefepime HCl 1 gm in 50 mls @ 100 mls/hr 12/02/24 16:00 12/05/24 15:22 Maxipime 1 Gm/Ns 50 Ml IVPB 100 mls/hr Q24H RACHEL Administration Albumin Human 50 mls @ 999 mls/hr 12/03/24 06:27 Albutein IVPB 01/02/25 06:26 Q10M PRN HYPOTENSION Sodium Chloride 1,000 mls @ 999 mls/hr 12/05/24 18:06 Normal Saline Iv IV CONT 12/05/24 19:06 .Q1H1M ONE Insulin Aspart 2 - 5 units 12/02/24 08:00 12/05/24 15:16 Insulin Aspart (*Bkc) 100 Units/Ml SUB-Q Not Given TIDWM RACHEL Protocol Insulin Glargine 5 units 12/01/24 22:00 12/04/24 20:14 Insulin Glargine (*Bkc) 100 Units/Ml SUB-Q 5 units HS RACHEL Administration Loratadine 10 mg 12/04/24 21:00 12/04/24 20:14 Loratadine 10 Mg Tablet PO 10 mg QHS RACHEL Administration Melatonin 3 mg 12/03/24 21:00 12/04/24 20:14 Melatonin 3 Mg Tablet PO 3 mg HS RACHEL Administration Metronidazole 500 mg 12/02/24 22:00 12/05/24 13:23 Metronidazole 500 Mg Tablet PO 500 mg Q8HR RACHEL Administration Home Med (Ripretinib 50 mg 12/02/24 21:00 12/04/24 22:39 [Qinlock] 50 Mg PO 01/01/25 20:59 50 mg Tablet) QHS RACHEL Administration Ondansetron HCl 4 mg 12/01/24 17:07 12/01/24 23:37 Ondansetron Inj 4 Mg/2 Ml Vial IV PUSH 4 mg Q4H PRN Administration Nausea Prednisone 40 mg 12/05/24 13:50 12/05/24 15:22 Prednisone 20 Mg Tablet PO 40 mg DAILY@0800 RACHEL Administration Sodium Bicarbonate 650 mg 12/01/24 21:10 12/05/24 08:11 Sodium Bicarbonate Tab 650 Mg Tablet PO 650 mg BID RACHEL Administration Tamsulosin HCl 0.4 mg 12/01/24 21:10 12/04/24 20:13 Tamsulosin Hcl 0.4 Mg Capsule PO 0.4 mg HS RACHEL Administration Radiology Results: ITS Impressions Chest X-Ray 12/01/24 16:13 IMPRESSION: No acute cardiopulmonary process. Chest CT 12/03/24 15:02 Impression: Patchy consolidation of groundglass opacity in the lingula, which more minimal involvement in the medial lower lobes and medial right middle lobe. Findings are most compatible with pneumonia. Correlate for pulmonary edema. Small bilateral pleural effusions with mild left basilar atelectasis. Stable mediastinal lymphadenopathy, nonspecific. Cholelithiasis. Foot X-Ray 12/03/24 15:09 Impression: No acute abnormality. Probable old healed fracture of the distal fibular shaft. Ankle MRI 12/04/24 14:18 IMPRESSION: 1. 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 2. 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 3. Moderate to severe fatty atrophy and diffuse increased muscular fluid signal in the intrinsic musculature of the foot suggestive of acute on chronic denervation change. 4. I can't. The the calcaneal insertions of the distal Achilles tendon and proximal plantar aponeurosis. Ankle Brachial Index 12/04/24 21:11 IMPRESSION: Mild stenosis bilaterally. Clinical correlation and further evaluation advised. Labs Labs: Laboratory Tests 12/05/24 04:42 12/05/24 04:42 Calcium 7.9 L Phosphorus 4.7 H Magnesium 2.1 Total Bilirubin 1.4 H AST 23 ALT 11 Alkaline Phosphatase 74 Total Protein 6.3 Albumin 3.4 L Microbiology 12/02/24 12:44 Sputum Sputum Culture - Final
[2024-12-05] MEDS: EPOETIN ALFA-EPBX 4,000 UNITS/ML VIAL 4000 UNITS IV PUSH (11:45)
--- NOTE | 2024-12-05 13:47 | P.PNIM_ITS ---
Progress Note: A&P Assessment and Plan (1) Pneumonia: Code(s): J18.9 - Pneumonia, unspecified organism Status: Acute Assessment and Plan: patient presented with persistent cough and fever initial CK are was not showing pneumonia however chest CT was completed did show ground-glass opacities consistent with pneumonia * continue with IV cefepime and Flagyl pending cultures. COVID/influenza/ RSV negative * blood cultures NGTD * sputum cultures negative * guaifenesin * added prednisone 40mg daily * add incentive spirometer * Tessalon pearls * Duonebs PRN * viral respiratory panel was ordered and pending L (2) Fever: Code(s): R50.9 - Fever, unspecified Status: Acute Assessment and Plan: Fever on arrival to ER with associated acute cough. Started feeling ill evening 11/28 prior to arrival, CXR was negative for pneumonia however CT chest showing ground-glass opacities in the medial lower lobes most consistent with pneumonia also AVN of left ankle being evaluated * Blood cultures NGTD * antipyretics p.r.n. * continue cefepime IV and Flagyl p.o. pending cultures will deescalate (3) AVN (avascular necrosis of bone): Code(s): M87.00 - Idiopathic aseptic necrosis of unspecified bone Status: Acute Assessment and Plan: Patient with HX of Left distal tibia lateral osteochondroma, chronic with chronic accompanying changes of the overlying fibula, ortho discussed conservative management as well as operative options. Patient is nontender over the area and no other symptoms associated with the osteochondroma. Tenderness on plantar heel. No erythema or fluctuance to suggest infection. pulse was palpable toady Concern for AVN or other necrosis. Ortho ordered MRI of the left ankle and ABBIE/TBI * PT/OT pending results (4) ESRD (end stage renal disease) on dialysis: Code(s): N18.6 - End stage renal disease; Z99.2 - Dependence on renal dialysis Status: Chronic Assessment and Plan: ESRD Monday, , Monday dialysis * nephrology consulted * Avoid nephrotoxic drugs. * Monitor antihypertensive drug therapy. * Avoid NSAIDs. * Routine CMP monitoring GFR. * Monitor electrolytes especially potassium. * Antibiotic doses depending on creatinine clearance. * Pharmacy does medications. (5) HTN (hypertension): Code(s): I10 - Essential (primary) hypertension Status: Chronic Assessment and Plan: * bp reviewed * continue amlodipine, hydralazine, and carvedilol * BP per unit protocol (6) Type 2 diabetes mellitus: Qualifiers: Diabetes mellitus terminal system operator insulin use: with terminal system operator use Diabetes mellitus complication status: with kidney complications Diabetes mellitus complication detail: with chronic kidney disease Chronic kidney disease stage: on chronic dialysis Qualified Code(s): E11.22 - Type 2 diabetes mellitus with diabetic chronic kidney disease; N18.6 - End stage renal disease; Z79.4 - rat exterminator (current) use of insulin; Z99.2 - Dependence on renal dialysis Code(s): E11.9 - Type 2 diabetes mellitus without complications Status: Chronic Assessment and Plan: * Accu-Cheks a.c. HS * SSI * diabetic/renal diet * hypoglycemic protocol * resume patient's long-acting insulin (7) CAD (coronary artery disease): Code(s): I25.10 - Atherosclerotic heart disease of [place] coronary artery without angina pectoris Status: Acute Assessment and Plan: patient with history of CABG * patient on pitavastatin non formulated here (8) Unsteady gait: Code(s): R26.81 - Unsteadiness on feet Status: Acute Assessment and Plan: patient reporting inability to ambulate for the last 2 weeks due to new onset acute pain to left ankle * ortho consulted evaluating for further treatment plans * will order PT/OT pending further treatment Plan Code status: Full code per patient DVT prophylaxis: Heparin Stress ulcer prophylaxis: Protonix 40 daily PT/OT notes: PT/OT pending Disposition: Patient continues admission left further evaluation on left ankle pain with MRI and ABIs will continue to treat for pneumonia per chest CT. PT/ OT evaluation pending results as well to determine discharge planning needs. Time Spent With Patient Time with patient: 15 - 25 minutes Subjective Date/time seen: 12/05/24 13:47 Interval history: Pt is a 79-year-old male here for cough and inability to ambulate due to foot injury. Patient states that he continues to have a cough that is productive with white sputum the. He usually is ambulating with a wheelchair for the last 2 weeks due to a foot injury. 12/05/2024 Patient was seen in dialysis tolerating procedure. Still with persistent cough but patient reports he is finally having sputum production with mild improvement. Denied CP, N/V, SOB. Review of Systems Review of Systems: All systems reviewed & are unremarkable except as noted in HPI and below Exam Narrative: General: Well developed well nourished patient in NAD HEENT: normocephalic Neck: supple Neuro: Alert and oriented x4 CV:RRR Resp: Diminished throughout, rhonci heard lower left lobe, non-productive dry cough Abd: Soft, non distended. No pain to palpation. Positive bowel sounds Extremities: No significant swelling, erythema, or pain to palpation. Left foot with bruising to the lateral aspect, palpable pedal pulse to LLE Objective Data Vital Signs Vital Signs: Vital Signs - 24 hr 12/04/24 14:46 12/04/24 16:00 12/04/24 20:00 Temperature 98.0 F Pulse Rate 84 60 70 Respiratory Rate 18 18 Blood Pressure 144/46 H 155/46 H Pulse Oximetry 94 90 Oxygen Delivery 12/04/24 20:00 12/04/24 20:13 12/04/24 23:39 Temperature Pulse Rate 62 70 56 L Respiratory Rate 20 Blood Pressure Pulse Oximetry Oxygen Delivery 12/04/24 23:41 12/04/24 23:45 12/05/24 00:00 Temperature 97.6 F Pulse Rate 61 60 Respiratory Rate 20 18 Blood Pressure 155/57 H Pulse Oximetry 93 97 Oxygen Delivery Room Air 12/05/24 00:00 12/05/24 04:00 12/05/24 04:00 Temperature 97.7 F Pulse Rate 56 L 57 L 60 Respiratory Rate 18 Blood Pressure 164/53 H Pulse Oximetry 97 Oxygen Delivery 12/05/24 08:00 12/05/24 08:00 12/05/24 08:10 Temperature 98.3 F Pulse Rate 58 L 64 66 Respiratory Rate 18 Blood Pressure 143/60 H Pulse Oximetry 91 Oxygen Delivery 12/05/24 08:19 12/05/24 08:48 12/05/24 09:09 Temperature 98.1 F Pulse Rate 62 55 L Respiratory Rate 28 H Blood Pressure 153/63 H 138/74 Pulse Oximetry 98 Oxygen Delivery Room Air 12/05/24 09:15 12/05/24 09:30 12/05/24 09:45 Temperature Pulse Rate 62 62 63 Respiratory Rate Blood Pressure 154/66 H 157/61 H 157/71 H Pulse Oximetry Oxygen Delivery 12/05/24 10:00 12/05/24 10:15 12/05/24 10:30 Temperature Pulse Rate 68 61 59 L Respiratory Rate Blood Pressure 157/69 H 148/65 H 161/68 H Pulse Oximetry Oxygen Delivery 12/05/24 10:45 12/05/24 11:00 12/05/24 11:15 Temperature Pulse Rate 66 65 70 Respiratory Rate Blood Pressure 150/68 H 148/67 H 157/66 H Pulse Oximetry Oxygen Delivery 12/05/24 11:30 12/05/24 11:45 12/05/24 12:00 Temperature Pulse Rate 56 L 69 72 Respiratory Rate Blood Pressure 149/84 H 167/71 H 159/72 H Pulse Oximetry Oxygen Delivery 12/05/24 12:00 12/05/24 12:15 12/05/24 12:50 Temperature 98.4 F Pulse Rate 77 76 76 Respiratory Rate 20 Blood Pressure 161/72 H 156/77 H Pulse Oximetry 95 Oxygen Delivery Intake/Output Intake/Output: Intake & Output 12/02/24 12/03/24 12/04/24 12/05/24 23:59 23:59 23:59 23:59 Intake Total 1200 1360 1230 600 Output Total 650 1425 1400 1025 Balance 550 -65 -170 -425 Meds/Results Medications: Active Medications Generic Name Dose Route Start Last Admin Trade Name Freq PRN Reason Stop Dose Admin Acetaminophen 650 mg 12/01/24 17:07 12/05/24 00:58 Acetaminophen 325 Mg Tablet PO 650 mg Q4H PRN Administration Mild Pain (1-3) or Fever Albuterol/Ipratropium 3 ml 12/03/24 14:50 12/04/24 23:39 Ipratropium 0.5 Mg/Albuterol Sulfate 2.5 Mg Ampul.Neb 3 Ml INHALATION 3 ml Q6HRT PRN Administration Wheezing Amlodipine Besylate 20 mg 12/02/24 09:00 12/05/24 08:10 Amlodipine Besylate 10 Mg Tablet PO 20 mg DAILY RACHEL Administration Aspirin 81 mg 12/03/24 10:30 12/05/24 08:10 Aspirin 81 Mg Enteric Tablet PO 81 mg QAM RACHEL Administration Benzonatate 200 mg 12/04/24 17:00 12/05/24 13:23 Benzonatate 100 Mg Capsule PO 200 mg TID RACHEL Administration Carvedilol 25 mg 12/01/24 21:10 12/05/24 08:10 Carvedilol 25 Mg Tablet PO 25 mg Q12HR RACHEL Administration Dextrose 12.5 gm 12/01/24 22:01 Dextrose 50% 25 Gm/50 Ml Syringe IV PUSH PRN PRN Hypoglycemia Protocol Epoetin Robert-epbx 4,000 units 12/05/24 18:10 12/05/24 11:45 Epoetin Robert-Epbx 4,000 Units/Ml Vial IV PUSH 12/05/24 18:11 4,000 units ONCE ONE Administration Ergocalciferol 1,250 mcg 12/08/24 09:00 Ergocalciferol (Vitamin D2) 1,250 Mcg (50,000 Units) Capsule PO WEEKLY RACHEL Furosemide 20 mg 12/01/24 21:10 12/05/24 08:06 Furosemide Inj 40 Mg/4 Ml Vial IV PUSH 20 mg DAILY RACHEL Administration Glucagon 1 mg 12/01/24 22:01 Glucagon For Inj 1 Mg Vial IM PRN PRN Hypoglycemia Protocol Glucose 15 gm 12/01/24 22:01 Glucose Oral Gel 15 Gm Of Glucse In 37.5 Gm Tube PO PRN PRN Hypoglycemia Protocol Guaifenesin 1,200 mg 12/04/24 21:00 12/05/24 08:10 Guaifenesin 12 Hr 600 Mg Tabcr PO 1,200 mg Q12HR RAHCEL Administration Heparin Sodium (Porcine) 5,000 units 12/01/24 21:05 12/05/24 08:07 Heparin Sodium 5,000 Units/Ml Vial SUB-Q 5,000 units Q12HR RACHEL Administration Hydralazine HCl 100 mg 12/01/24 21:10 12/05/24 08:09 Hydralazine Hcl 50 Mg Tablet PO 100 mg Q12HR RACHEL Administration Cefepime HCl 1 gm in 50 mls @ 100 mls/hr 12/02/24 16:00 12/04/24 17:09 Maxipime 1 Gm/Ns 50 Ml IVPB Infused Q24H RACHEL Infusion Albumin Human 50 mls @ 999 mls/hr 12/03/24 06:27 Albutein IVPB 01/02/25 06:26 Q10M PRN HYPOTENSION Sodium Chloride 1,000 mls @ 999 mls/hr 12/05/24 18:06 Normal Saline Iv IV CONT 12/05/24 19:06 .Q1H1M ONE Insulin Aspart 2 - 5 units 12/02/24 08:00 12/05/24 08:12 Insulin Aspart (*Bkc) 100 Units/Ml SUB-Q Not Given TIDWM [facility] Protocol Insulin Glargine 5 units 12/01/24 22:00 12/04/24 20:14 Insulin Glargine (*Bkc) 100 Units/Ml SUB-Q 5 units HS RACHEL Administration Loratadine 10 mg 12/04/24 21:00 12/04/24 20:14 Loratadine 10 Mg Tablet PO 10 mg QHS RACHEL Administration Melatonin 3 mg 12/03/24 21:00 12/04/24 20:14 Melatonin 3 Mg Tablet PO 3 mg HS RACHEL Administration Metronidazole 500 mg 12/02/24 22:00 12/05/24 13:23 Metronidazole 500 Mg Tablet PO 500 mg Q8HR RACHEL Administration Home Med (Ripretinib 50 mg 12/02/24 21:00 12/04/24 22:39 [Qinlock] 50 Mg PO 01/01/25 20:59 50 mg Tablet) QHS RACHEL Administration Ondansetron HCl 4 mg 12/01/24 17:07 12/01/24 23:37 Ondansetron Inj 4 Mg/2 Ml Vial IV PUSH 4 mg Q4H PRN Administration Nausea Sodium Bicarbonate 650 mg 12/01/24 21:10 12/05/24 08:11 Sodium Bicarbonate Tab 650 Mg Tablet PO 650 mg BID RACHEL Administration Tamsulosin HCl 0.4 mg 12/01/24 21:10 12/04/24 20:13 Tamsulosin Hcl 0.4 Mg Capsule PO 0.4 mg HS RACEHL Administration Radiology Results: ITS Impressions Chest X-Ray 12/01/24 16:13 IMPRESSION: No acute cardiopulmonary process. Chest CT 12/03/24 15:02 Impression: Patchy consolidation of groundglass opacity in the lingula, which more minimal involvement in the medial lower lobes and medial right middle lobe. Findings are most compatible with pneumonia. Correlate for pulmonary edema. Small bilateral pleural effusions with mild left basilar atelectasis. Stable mediastinal lymphadenopathy, nonspecific. Cholelithiasis. Foot X-Ray 12/03/24 15:09 Impression: No acute abnormality. Probable old healed fracture of the distal fibular shaft. Ankle MRI 12/04/24 14:18 IMPRESSION: 1. 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 2. 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 3. Moderate to severe fatty atrophy and diffuse increased muscular fluid signal in the intrinsic musculature of the foot suggestive of acute on chronic denervation change. 4. I can't. The the calcaneal insertions of the distal Achilles tendon and proximal plantar aponeurosis. Ankle Brachial Index 12/04/24 21:11 IMPRESSION: Mild stenosis bilaterally. Clinical correlation and further evaluation advised. Labs Labs: Laboratory Results - last 24 hr 12/04/24 12/04/24 12/05/24 16:47 20:04 04:42 WBC 10.3 H RBC 3.66 L Hgb 10.7 L Hct 33.0 L MCV 90.2 MCH 29.2 MCHC 32.4 RDW 14.6 H Plt Count 167 MPV 10.3 Immature Gran % (Auto) 1.3 H Neut % (Auto) 58.0 Lymph % (Auto) 22.4 [place] % (Auto) 9.8 H Eos % (Auto) 7.6 H Baso % (Auto) 0.9 Lymph # (Auto) 2.31 [place] # (Auto) 1.0 H Eos # (Auto) 0.8 H Baso # (Auto) 0.1 Abs Immat Gran (auto) 0.13 H Absolute Neuts (auto) 6.0 Absolute Nucleated RBC 0.000 Nucleated RBC % 0.0 Sodium 135 L Potassium 4.0 Chloride 99 Carbon Dioxide 24 Anion Gap 12 BUN 40 H Creatinine 5.90 H Estim Creat Clear Calc 11 Estimated GFR 9 L Glucose 168 H POC Capillary Glucose 218 H 200 H Calcium 7.9 L Phosphorus 4.7 H Magnesium 2.1 Total Bilirubin 1.4 H AST 23 ALT 11 Alkaline Phosphatase 74 Total Protein 6.3 Albumin 3.4 L 12/05/24 07:57 WBC RBC Hgb Hct MCV MCH MCHC RDW Plt Count MPV Immature Gran % (Auto) Neut % (Auto) Lymph % (Auto) [place] % (Auto) Eos % (Auto) Baso % (Auto) Lymph # (Auto) [place] # (Auto) Eos # (Auto) Baso # (Auto) Abs Immat Gran (auto) Absolute Neuts (auto) Absolute Nucleated RBC Nucleated RBC % Sodium Potassium Chloride Carbon Dioxide Anion Gap BUN Creatinine Estim Creat Clear Calc Estimated GFR Glucose POC Capillary Glucose 149 H Calcium Phosphorus Magnesium Total Bilirubin AST ALT Alkaline Phosphatase Total Protein Albumin Quality VTE Prophylaxis VTE prophylaxis: mechanical ordered and pharmacologic ordered -Patient's previous records reviewed on admission -ER notes reviewed in detail on admission -discussed all findings and current treatment plan with patient/Family/POA -Consultations reviewed for recommendations -Patient's disposition for safe discharge discussed with mattress spring encaser Dictation performed by Eve direct speech recognition software, therefore telephone engineer variants and typographical errors may occur. Hospitalist MIPS Advance Care Plan I have confirmed that the patient's Advanced Care Plan is present, code status is documented, or surrogate decision maker is listed in patient medical record.: Yes Medication Reconciliation I have utilized all available resources to obtain, update and review the patients current medications (includes all prescriptions, OTC, herbals, cannabis, and nutritional supplements).: Yes The patient is not eligible for med reconciliation; the patient is in a emergent medical situation where delaying treatment would jeopardize the patients health.: No
--- NOTE | 2024-12-05 14:49 | P.PNOP_ITS ---
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 ABIs done in the interim show adequate blood flow to the ankles although TBIs were not reported and questionable whether they were done. MRI of the left ankle shows severe degenerative changes of the subtalar joint which is most likely etiology for pain. Discussed with patient. Recommend conservative treatment with ice and elevation. Protected weight- bearing with fracture boot. May continue PT/OT with weight-bearing as tolerated. Recommend continued treatment for lower extremity edema. Reflux studies pending. No further intervention indicated at this time from orthopedic standpoint. Subjective Subjective Date/Time Seen: 12/05/24 14:49 Principal diagnosis: Left leg pain and swelling Interval history: Continued pain and swelling left leg. ABIs done in the interim which showed adequate blood flow to the ankle. MRI done which shows severe degenerative changes of the subtalar joint and mild degenerative changes of the ankle joint. 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 Review of Systems Constitutional: Constitutional: Denies fever(s) Eyes: Eyes: Denies blurry vision ENT: Reports Normal hearing present Cardiovascular: Cardiovascular: Denies chest pain and Denies dyspnea Respiratory: Respiratory: Denies dyspnea and Denies wheezing Gastrointestinal: Gastrointestinal: Denies abdominal pain Genitourinary: Genitourinary: Denies urinary urgency Musculoskeletal: Musculoskeletal: Reports as per HPI and Denies numbness Integumentary/Breasts: Skin/Breast: Denies changing lesions and Denies sores Neurologic: Reports Normal hearing present, Denies behavioral changes, Denies confusion, Denies numbness and Denies convulsions Psychiatric: Psychiatric: Denies behavioral changes, Denies confusion and Denies hallucinations Endocrine: Endocrine: Denies heat intolerance Hematologic/Lymphatic: Hematologic/Lymphatic: Denies easy bleeding Allergic/Immunologic: Allergic/Immunologic: Denies wheezing Exam Const: General: in distress mild and respiratory and ill appearing acutely; No healthy appearing or confusion Orientation/consciousness: oriented to person, oriented to place, oriented to time and No confusion HENMT: Head: normocephalic, atraumatic and other ( Productive cough with sputum) Eyes: Conjunctivae: conjunctivae normal Sclera: sclerae normal Neck: Neck: supple and nontender Resp: Effort & Inspection: normal respiratory effort and no audible wheezes Cardio: Rhythm: regular rhythm Skin: General skin exam: no rashes or lesions noted Neuro: General: oriented to person, oriented to place, oriented to time and No confusion Extrem: Right upper extremity: normal to inspection Left upper extremity: shoulder/upper arm ( hemodialysis shunt) Right lower extremity: ankle Details: normal to inspection, swelling ( mild) Details: diffusely, abnormal ROM Details: with range as follows (ankle dorsiflexion -10 degrees, plantar flexion 40?, inversion 15?, eversion 15?) and other ( good stability all directions); no tenderness and no ecchymosis and foot Details: abnormal ROM of toe ( hallux MTP dorsiflexion 40, plantar flexion 20?), vascular exam Details: abnormal capillary refill Location: of all toes; dorsalis pedis pulse absent and posterior tibial pulse absent, tendon exam Details: active flexion abnormal and active extension abnormal, motor-sensory exam Details: two point discrimination abnormal Location: in all toes and light-touch abnormal Location: in all toes and other (Hallux metatarsophalangeal motion 20? dorsiflexion/10? plantar flexion) Left lower extremity: lower leg Details: pitting edema Details: 2+ ( diffuse lower leg), ankle Details: normal to inspection, tenderness, swelling ( moderate with 2+ pitting edema) Details: diffusely and abnormal ROM Details: with range as follows (ankle dorsiflexion -10 degrees, plantar flexion 40?, inversion 15?, eversion 15?) and foot Details: normal capillary refill, tenderness Location: of the plantar foot and of the calcaneus ( plantar heel) Details: with squeeze; not point-tender, abnormal ROM of toe, vascular exam Details: abnormal capillary refill Location: of all toes; dorsalis pedis pulse absent and posterior tivial pulse absent, tendon exam active flexion abnormal of the great toe and active extension abnormal of the great toe and motor-sensory exam two point discrimination abnormal and light-touch abnormal in all toes; no crepitus Psych: Affect: normal affect Objective Data Vital Signs Vital Signs: Vital Signs - 24 hr 12/04/24 16:00 12/04/24 20:00 12/04/24 20:00 Temperature 98.0 F Pulse Rate 60 70 62 Respiratory Rate 18 Blood Pressure 155/46 H Pulse Oximetry 90 Oxygen Delivery 12/04/24 20:13 12/04/24 23:39 12/04/24 23:41 Temperature Pulse Rate 70 56 L Respiratory Rate 20 Blood Pressure Pulse Oximetry 93 Oxygen Delivery Room Air 12/04/24 23:45 12/05/24 00:00 12/05/24 00:00 Temperature 97.6 F Pulse Rate 61 60 56 L Respiratory Rate 20 18 Blood Pressure 155/57 H Pulse Oximetry 97 Oxygen Delivery 12/05/24 04:00 12/05/24 04:00 12/05/24 08:00 Temperature 97.7 F 98.3 F Pulse Rate 57 L 60 58 L Respiratory Rate 18 18 Blood Pressure 164/53 H 143/60 H Pulse Oximetry 97 91 Oxygen Delivery 12/05/24 08:00 12/05/24 08:10 12/05/24 08:19 Temperature Pulse Rate 64 66 Respiratory Rate Blood Pressure Pulse Oximetry Oxygen Delivery Room Air 12/05/24 08:48 12/05/24 09:09 12/05/24 09:15 Temperature 98.1 F Pulse Rate 62 55 L 62 Respiratory Rate 28 H Blood Pressure 153/63 H 138/74 154/66 H Pulse Oximetry 98 Oxygen Delivery 12/05/24 09:30 12/05/24 09:45 12/05/24 10:00 Temperature Pulse Rate 62 63 68 Respiratory Rate Blood Pressure 157/61 H 157/71 H 157/69 H Pulse Oximetry Oxygen Delivery 12/05/24 10:15 12/05/24 10:30 12/05/24 10:45 Temperature Pulse Rate 61 59 L 66 Respiratory Rate Blood Pressure 148/65 H 161/68 H 150/68 H Pulse Oximetry Oxygen Delivery 12/05/24 11:00 12/05/24 11:15 12/05/24 11:30 Temperature Pulse Rate 65 70 56 L Respiratory Rate Blood Pressure 148/67 H 157/66 H 149/84 H Pulse Oximetry Oxygen Delivery 12/05/24 11:45 12/05/24 12:00 12/05/24 12:00 Temperature Pulse Rate 69 72 77 Respiratory Rate Blood Pressure 167/71 H 159/72 H Pulse Oximetry Oxygen Delivery 12/05/24 12:15 12/05/24 12:30 12/05/24 12:41 Temperature Pulse Rate 76 81 76 Respiratory Rate Blood Pressure 161/72 H 164/79 H 135/66 Pulse Oximetry Oxygen Delivery 12/05/24 12:50 Temperature 98.4 F Pulse Rate 76 Respiratory Rate 20 Blood Pressure 156/77 H Pulse Oximetry 95 Oxygen Delivery Intake/Output Intake/Output: Intake & Output 12/02/24 12/03/24 12/04/24 12/05/24 23:59 23:59 23:59 23:59 Intake Total 1200 1360 1230 720 Output Total 650 1425 1400 5 Balance 111 -07 -735 -7558 Meds/Results Medications: Active Medications Generic Name Dose Route Start Last Admin Trade Name Freq PRN Reason Stop Dose Admin Acetaminophen 650 mg 12/01/24 17:07 12/05/24 00:58 Acetaminophen 325 Mg Tablet PO 650 mg Q4H PRN Administration Mild Pain (1-3) or Fever Albuterol/Ipratropium 3 ml 12/03/24 14:50 12/04/24 23:39 Ipratropium 0.5 Mg/Albuterol Sulfate 2.5 Mg Ampul.Neb 3 Ml INHALATION 3 ml Q6HRT PRN Administration Wheezing Amlodipine Besylate 20 mg 12/02/24 09:00 12/05/24 08:10 Amlodipine Besylate 10 Mg Tablet PO 20 mg DAILY RACHEL Administration Aspirin 81 mg 12/03/24 10:30 12/05/24 08:10 Aspirin 81 Mg Enteric Tablet PO 81 mg QAM RACHEL Administration Benzonatate 200 mg 12/04/24 17:00 12/05/24 13:23 Benzonatate 100 Mg Capsule PO 200 mg TID RACHEL Administration Carvedilol 25 mg 12/01/24 21:10 12/05/24 08:10 Carvedilol 25 Mg Tablet PO 25 mg Q12HR RACHEL Administration Dextrose 12.5 gm 12/01/24 22:01 Dextrose 50% 25 Gm/50 Ml Syringe IV PUSH PRN PRN Hypoglycemia Protocol Epoetin Robert-epbx 4,000 units 12/05/24 18:10 12/05/24 11:45 Epoetin Robert-Epbx 4,000 Units/Ml Vial IV PUSH 12/05/24 18:11 4,000 units ONCE ONE Administration Ergocalciferol 1,250 mcg 12/08/24 09:00 Ergocalciferol (Vitamin D2) 1,250 Mcg (50,000 Units) Capsule PO WEEKLY RACHEL Furosemide 20 mg 12/01/24 21:10 12/05/24 08:06 Furosemide Inj 40 Mg/4 Ml Vial IV PUSH 20 mg DAILY RACHEL Administration Glucagon 1 mg 12/01/24 22:01 Glucagon For Inj 1 Mg Vial IM PRN PRN Hypoglycemia Protocol Glucose 15 gm 12/01/24 22:01 Glucose Oral Gel 15 Gm Of Glucse In 37.5 Gm Tube PO PRN PRN Hypoglycemia Protocol Guaifenesin 1,200 mg 12/04/24 21:00 12/05/24 08:10 Guaifenesin 12 Hr 600 Mg Tabcr PO 1,200 mg Q12HR RACHEL Administration Heparin Sodium (Porcine) 5,000 units 12/01/24 21:05 12/05/24 08:07 Heparin Sodium 5,000 Units/Ml Vial SUB-Q 5,000 units Q12HR RACHEL Administration Hydralazine HCl 100 mg 12/01/24 21:10 12/05/24 08:09 Hydralazine Hcl 50 Mg Tablet PO 100 mg Q12HR RACHEL Administration Cefepime HCl 1 gm in 50 mls @ 100 mls/hr 12/02/24 16:00 12/04/24 17:09 Maxipime 1 Gm/Ns 50 Ml IVPB Infused Q24H RACHEL Infusion Albumin Human 50 mls @ 999 mls/hr 12/03/24 06:27 Albutein IVPB 01/02/25 06:26 Q10M PRN HYPOTENSION Sodium Chloride 1,000 mls @ 999 mls/hr 12/05/24 18:06 Normal Saline Iv IV CONT 12/05/24 19:06 .Q1H1M ONE Insulin Aspart 2 - 5 units 12/02/24 08:00 12/05/24 08:12 Insulin Aspart (*Bkc) 100 Units/Ml SUB-Q Not Given TIDWM RACHEL Protocol Insulin Glargine 5 units 12/01/24 22:00 12/04/24 20:14 Insulin Glargine (*Bkc) 100 Units/Ml SUB-Q 5 units HS RACHEL Administration Loratadine 10 mg 12/04/24 21:00 12/04/24 20:14 Loratadine 10 Mg Tablet PO 10 mg QHS RACHEL Administration Melatonin 3 mg 07/01/25 21:00 12/04/24 20:14 Melatonin 3 Mg Tablet PO 3 mg HS RACHEL Administration Metronidazole 500 mg 12/02/24 22:00 12/05/24 13:23 Metronidazole 500 Mg Tablet PO 500 mg Q8HR RACHEL Administration Home Med (Ripretinib 50 mg 12/02/24 21:00 12/04/24 22:39 [Qinlock] 50 Mg PO 01/01/25 20:59 50 mg Tablet) QHS RACHEL Administration Ondansetron HCl 4 mg 12/01/24 17:07 12/01/24 23:37 Ondansetron Inj 4 Mg/2 Ml Vial IV PUSH 4 mg Q4H PRN Administration Nausea Prednisone 40 mg 12/05/24 13:50 Prednisone 20 Mg Tablet PO DAILY@0800 RACHEL Sodium Bicarbonate 650 mg 12/01/24 21:10 12/05/24 08:11 Sodium Bicarbonate Tab 650 Mg Tablet PO 650 mg BID RACHEL Administration Tamsulosin HCl 0.4 mg 12/01/24 21:10 12/04/24 20:13 Tamsulosin Hcl 0.4 Mg Capsule PO 0.4 mg HS RACHEL Administration Radiology Results: ITS Impressions Chest X-Ray 12/01/24 16:13 IMPRESSION: No acute cardiopulmonary process. Chest CT 12/03/24 15:02 Impression: Patchy consolidation of groundglass opacity in the lingula, which more minimal involvement in the medial lower lobes and medial right middle lobe. Findings are most compatible with pneumonia. Correlate for pulmonary edema. Small bilateral pleural effusions with mild left basilar atelectasis. Stable mediastinal lymphadenopathy, nonspecific. Cholelithiasis. Foot X-Ray 12/03/24 15:09 Impression: No acute abnormality. Probable old healed fracture of the distal fibular shaft. Ankle MRI 12/04/24 14:18 IMPRESSION: 1. 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 2. 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 3. Moderate to severe fatty atrophy and diffuse increased muscular fluid signal in the intrinsic musculature of the foot suggestive of acute on chronic denervation change. 4. I can't. The the calcaneal insertions of the distal Achilles tendon and proximal plantar aponeurosis. Ankle Brachial Index 12/04/24 21:11 IMPRESSION: Mild stenosis bilaterally. Clinical correlation and further evaluation advised. Labs Labs: Laboratory Results - last 24 hr 12/04/24 12/04/24 12/05/24 16:47 20:04 04:42 WBC 10.3 H RBC 3.66 L Hgb 10.7 L Hct 33.0 L MCV 90.2 MCH 29.2 MCHC 32.4 RDW 14.6 H Plt Count 167 MPV 10.3 Immature Gran % (Auto) 1.3 H Neut % (Auto) 58.0 Lymph % (Auto) 22.4 [place] % (Auto) 9.8 H Eos % (Auto) 7.6 H Baso % (Auto) 0.9 Lymph # (Auto) 2.31 [place] # (Auto) 1.0 H Eos # (Auto) 0.8 H Baso # (Auto) 0.1 Abs Immat Gran (auto) 0.13 H Absolute Neuts (auto) 6.0 Absolute Nucleated RBC 0.000 Nucleated RBC % 0.0 Sodium 135 L Potassium 4.0 Chloride 99 Carbon Dioxide 24 Anion Gap 12 BUN 40 H Creatinine 5.90 H Estim Creat Clear Calc 11 Estimated GFR 9 L Glucose 168 H POC Capillary Glucose 218 H 200 H Calcium 7.9 L Phosphorus 4.7 H Magnesium 2.1 Total Bilirubin 1.4 H AST 23 ALT 11 Alkaline Phosphatase 74 Total Protein 6.3 Albumin 3.4 L 12/05/24 12/05/24 07:57 13:27 WBC RBC Hgb Hct MCV MCH MCHC RDW Plt Count MPV Immature Gran % (Auto) Neut % (Auto) Lymph % (Auto) [place] % (Auto) Eos % (Auto) Baso % (Auto) Lymph # (Auto) [place] # (Auto) Eos # (Auto) Baso # (Auto) Abs Immat Gran (auto) Absolute Neuts (auto) Absolute Nucleated RBC Nucleated RBC % Sodium Potassium Chloride Carbon Dioxide Anion Gap BUN Creatinine Estim Creat Clear Calc Estimated GFR Glucose POC Capillary Glucose 149 H 154 H Calcium Phosphorus Magnesium Total Bilirubin AST ALT Alkaline Phosphatase Total Protein Albumin
[2024-12-05] MEDS: CEFEPIME 1 GM/NS 50 ML 1 GM/50 ML BAG IVPB (15:22)
[2024-12-05] MEDS: INSULIN ASPART (*BKC) 100 UNITS/ML SUB-Q (17:33)
[2024-12-05 19:54] LABS: Human Parainfluenza Virus 1 Not Detected (Not Detected); Human Parainfluenza Virus 2 Not Detected (Not Detected); Human Parainfluenza Virus 3 Not Detected (Not Detected); Human Parainfluenza Virus 4 Not Detected (Not Detected); Human RSV B Not Detected (Not Detected)
[2024-12-05] MEDS: TAMSULOSIN HCL 0.4 MG CAPSULE PO (20:41)
[2024-12-05] MEDS: INSULIN GLARGINE (*BKC) 100 UNITS/ML SUB-Q (20:42)
[2024-12-05] MEDS: LORATADINE 10 MG TABLET PO (20:42)
[2024-12-05] MEDS: MELATONIN 3 MG TABLET PO (20:42)
[2024-12-05] MEDS: [UNRECOGNIZED DRUG - OTHER] 50 EACH PO (20:45)
[2024-12-06] VITALS: PULSE 71
[2024-12-06 04:00] VITALS: BP 165/62; PULSE 68; RESP 18; TEMP 36.4; O2SAT 96
[2024-12-06 05:28] LABS: Hematocrit 33.8 % (42.0-52.0); Hemoglobin 10.9 g/dL (14.0-18.0); Immature Granulocyte Percent A 2.4 % (0-0.5); Lymphocytes Absolute Auto 2.11 K/mm3 (0.9-3.2); Mean Corpuscular HGB Conc 32.2 g/dl (32-36); Mean Corpuscular Hemoglobin 28.7 pg (26-34); Mean Corpuscular Volume 88.9 fl (80-100); Nucleated Red Blood Cells Absolute Auto 0.000 K/mm3 (0.0-0.012); Nucleated Red Blood Cells Perc 0.0 % (0.0-0.2); Platelet Count Result 181 k/mm3 (150-375); Red Blood Count 3.80 M/mm3 (4.6-6.20); White Blood Count 13.8 K/mm3 (4.5-10.0)
[2024-12-06 05:46] LABS: Alanine Aminotransferase 15 U/L (6-50); Albumin Level 3.7 g/dL (3.5-5.1); Alkaline Phosphatase 79 U/L (38-126); Anion Gap 12 mmol/L (4-12); Aspartate Amino Transferase 23 U/L (17-59); Bilirubin,Total 1.4 mg/dL (0.2-1.3); Blood Urea Nitrogen 31 mg/dL (9-20); Calcium 8.6 mg/dL (8.4-10.2); Carbon Dioxide 24 mmol/L (22-30); Chloride 98 mmol/L (98-107); Estimated CRCL calculation 14 ml/min; Estimated Glomerular Filt Rate 12; Glucose 276 mg/dL (65-110); Magnesium 2.1 mg/dL (1.6-2.3); Potassium 4.1 mmol/L (3.4-5.0); Sodium 134 mmol/L (137-145); Total Protein 6.4 g/dL (6.3-8.2)
[2024-12-06 06:01] VITALS: BP 165/55; PULSE 97; RESP 18; TEMP 36.4; O2SAT 90
[2024-12-06 08:00] VITALS: BP 158/57; PULSE 66; RESP 20; TEMP 36.4; O2SAT 99
[2024-12-06] MEDS: guaiFENesin 12 HR 600 MG TABCR 1200 MG PO (08:07)
[2024-12-06] MEDS: BENZONATATE 100 MG CAPSULE 200 MG PO ×2 (08:07→12:08)
[2024-12-06 08:08] VITALS: PULSE 64
[2024-12-06] MEDS: SODIUM BICARBONATE TAB 650 MG TABLET PO (08:08)
[2024-12-06] MEDS: ASPIRIN 81 MG ENTERIC TABLET PO (08:08)
[2024-12-06] MEDS: FUROSEMIDE INJ 40 MG/4 ML VIAL 20 MG IV PUSH (08:09)
--- NOTE | 2024-12-06 08:31 | PM.PNORT ---
Progress Note: A&P Assessment and Plan (1) Arthritis of ankle, left, degenerative: Qualifiers: Osteoarthritis type: primary Qualified Code(s): M19.072 - Primary osteoarthritis, left ankle and foot Code(s): M19.072 - Primary osteoarthritis, left ankle and foot Status: Acute Assessment and Plan: Left ankle pain and swelling improved today. Patient able to ambulate with regular shoe wear and walker with minimal pain. ABIs done in the interim show adequate blood flow to the ankles although TBIs were not reported and questionable whether they were done. MRI of the left ankle shows severe degenerative changes of the subtalar joint which is most likely etiology for pain. Discussed with patient. Recommend conservative treatment with ice and elevation. Protected weight-bearing with fracture boot as needed. May use regular shoe wear if more comfortable. Continue PT/OT with weight-bearing as tolerated. Recommend continued treatment for lower extremity edema. Reflux studies pending. No further intervention indicated at this time from orthopedic standpoint. Subjective Subjective Date/Time Seen: 12/06/24 08:31 Principal diagnosis: Left leg pain and swelling Interval history: Pain and swelling left leg improved. ABIs done in the interim which showed adequate blood flow to the ankle. MRI done which shows severe degenerative changes of the subtalar joint and mild degenerative changes of the ankle joint. 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 Patient states decreased pain and better ability to ambulate today. Exam Const: General: in distress mild and respiratory and ill appearing acutely; No healthy appearing or confusion HENMT: Head: normocephalic, atraumatic and other ( Productive cough with sputum) Neck: Neck: supple and nontender Resp: Effort & Inspection: normal respiratory effort and no audible wheezes Neuro: General: oriented to person, oriented to place, oriented to time and No confusion Extrem: Right upper extremity: normal to inspection Left upper extremity: shoulder/upper arm ( hemodialysis shunt) Right lower extremity: ankle Details: normal to inspection, swelling ( mild) Details: diffusely, abnormal ROM Details: with range as follows (ankle dorsiflexion -10 degrees, plantar flexion 40?, inversion 15?, eversion 15?) and other ( good stability all directions); no tenderness and no ecchymosis and foot Details: abnormal ROM of toe ( hallux MTP dorsiflexion 40, plantar flexion 20?), vascular exam Details: abnormal capillary refill Location: of all toes; dorsalis pedis pulse absent and posterior tibial pulse absent, tendon exam Details: active flexion abnormal and active extension abnormal, motor-sensory exam Details: two point discrimination abnormal Location: in all toes and light-touch abnormal Location: in all toes and other (Hallux metatarsophalangeal motion 20? dorsiflexion/10? plantar flexion) Left lower extremity: lower leg Details: pitting edema Details: 2+ ( diffuse lower leg), ankle Details: normal to inspection, tenderness, swelling ( moderate with 2+ pitting edema) Details: diffusely and abnormal ROM Details: with range as follows (ankle dorsiflexion -10 degrees, plantar flexion 40?, inversion 15?, eversion 15?) and foot Details: normal capillary refill, tenderness Location: of the plantar foot and of the calcaneus ( plantar heel) Details: with squeeze; not point-tender, abnormal ROM of toe, vascular exam Details: abnormal capillary refill Location: of all toes; dorsalis pedis pulse absent and posterior tivial pulse absent, tendon exam active flexion abnormal of the great toe and active extension abnormal of the great toe and motor-sensory exam two point discrimination abnormal and light-touch abnormal in all toes; no crepitus Psych: Affect: normal affect Objective Data Vital Signs Vital Signs: Vital Signs - 24 hr 12/05/24 08:48 12/05/24 09:09 12/05/24 09:15 Temperature 98.1 F Pulse Rate 62 55 L 62 Respiratory Rate 28 H Blood Pressure 153/63 H 138/74 154/66 H Pulse Oximetry 98 Oxygen Delivery Fraction of Inspired Oxygen 12/05/24 09:30 12/05/24 09:45 12/05/24 10:00 Temperature Pulse Rate 62 63 68 Respiratory Rate Blood Pressure 157/61 H 157/71 H 157/69 H Pulse Oximetry Oxygen Delivery Fraction of Inspired Oxygen 12/05/24 10:15 12/05/24 10:30 12/05/24 10:45 Temperature Pulse Rate 61 59 L 66 Respiratory Rate Blood Pressure 148/65 H 161/68 H 150/68 H Pulse Oximetry Oxygen Delivery Fraction of Inspired Oxygen 12/05/24 11:00 12/05/24 11:15 12/05/24 11:30 Temperature Pulse Rate 65 70 56 L Respiratory Rate Blood Pressure 148/67 H 157/66 H 149/84 H Pulse Oximetry Oxygen Delivery Fraction of Inspired Oxygen 12/05/24 11:45 12/05/24 12:00 12/05/24 12:00 Temperature Pulse Rate 69 72 77 Respiratory Rate Blood Pressure 167/71 H 159/72 H Pulse Oximetry Oxygen Delivery Fraction of Inspired Oxygen 12/05/24 12:15 12/05/24 12:30 12/05/24 12:41 Temperature Pulse Rate 76 81 76 Respiratory Rate Blood Pressure 161/72 H 164/79 H 135/66 Pulse Oximetry Oxygen Delivery Fraction of Inspired Oxygen 12/05/24 12:50 12/05/24 16:00 12/05/24 16:00 Temperature 98.4 F 99.4 F Pulse Rate 76 81 57 L Respiratory Rate 20 19 Blood Pressure 156/77 H 148/74 H Pulse Oximetry 95 96 Oxygen Delivery Fraction of Inspired Oxygen 12/05/24 20:00 12/05/24 20:00 12/05/24 20:37 Temperature 98.1 F Pulse Rate 77 76 82 Respiratory Rate 18 20 Blood Pressure 169/48 H Pulse Oximetry 95 92 Oxygen Delivery Room Air Fraction of Inspired Oxygen 21 12/05/24 20:40 12/05/24 20:41 12/05/24 23:51 Temperature 98.1 F Pulse Rate 69 69 80 Respiratory Rate 20 18 Blood Pressure 176/79 H Pulse Oximetry 92 92 Oxygen Delivery Room Air Fraction of Inspired Oxygen 21 12/06/24 00:00 12/06/24 04:00 12/06/24 04:00 Temperature 97.6 F Pulse Rate 71 68 68 Respiratory Rate 18 Blood Pressure 165/62 H Pulse Oximetry 96 Oxygen Delivery Fraction of Inspired Oxygen 12/06/24 06:01 12/06/24 08:08 Temperature 97.6 F Pulse Rate 97 64 Respiratory Rate 18 Blood Pressure 165/55 H Pulse Oximetry 90 Oxygen Delivery Fraction of Inspired Oxygen Intake/Output Intake/Output: Intake & Output 12/03/24 12/04/24 12/05/24 12/06/24 23:59 23:59 23:59 23:59 Intake Total 1360 1230 2060 Output Total 1429 5676 4482 Balance -65 -170 -565 Meds/Results Medications: Active Medications Generic Name Dose Route Start Last Admin Trade Name Freq PRN Reason Stop Dose Admin Acetaminophen 650 mg 12/01/24 17:07 12/05/24 00:58 Acetaminophen 325 Mg Tablet PO 650 mg Q4H PRN Administration Mild Pain (1-3) or Fever Albuterol/Ipratropium 3 ml 12/03/24 14:50 12/04/24 23:39 Ipratropium 0.5 Mg/Albuterol Sulfate 2.5 Mg Ampul.Neb 3 Ml INHALATION 3 ml Q6HRT PRN Administration Wheezing Amlodipine Besylate 20 mg 12/02/24 09:00 12/06/24 08:08 Amlodipine Besylate 10 Mg Tablet PO 20 mg DAILY RACHEL Administration Aspirin 81 mg 12/03/24 10:30 12/06/24 08:08 Aspirin 81 Mg Enteric Tablet PO 81 mg QAM RACHEL Administration Benzonatate 200 mg 12/04/24 17:00 12/06/24 08:07 Benzonatate 100 Mg Capsule PO 200 mg TID RACHEL Administration Carvedilol 25 mg 12/01/24 21:10 12/06/24 08:08 Carvedilol 25 Mg Tablet PO 25 mg Q12HR RACHEL Administration Dextrose 12.5 gm 12/01/24 22:01 Dextrose 50% 25 Gm/50 Ml Syringe IV PUSH PRN PRN Hypoglycemia Protocol Ergocalciferol 1,250 mcg 12/08/24 09:00 Ergocalciferol (Vitamin D2) 1,250 Mcg (50,000 Units) Capsule PO WEEKLY RACHEL Furosemide 20 mg 12/01/24 21:10 12/06/24 08:09 Furosemide Inj 40 Mg/4 Ml Vial IV PUSH 20 mg DAILY RACHEL Administration Glucagon 1 mg 12/01/24 22:01 Glucagon For Inj 1 Mg Vial IM PRN PRN Hypoglycemia Protocol Glucose 15 gm 12/01/24 22:01 Glucose Oral Gel 15 Gm Of Glucse In 37.5 Gm Tube PO PRN PRN Hypoglycemia Protocol Guaifenesin 1,200 mg 12/04/24 21:00 12/06/24 08:07 Guaifenesin 12 Hr 600 Mg Tabcr PO 1,200 mg Q12HR RACHEL Administration Heparin Sodium (Porcine) 5,000 units 12/01/24 21:05 12/06/24 08:09 Heparin Sodium 5,000 Units/Ml Vial SUB-Q 5,000 units Q12HR RACHEL Administration Hydralazine HCl 100 mg 12/01/24 21:10 12/06/24 08:06 Hydralazine Hcl 50 Mg Tablet PO 100 mg Q12HR RACHEL Administration Cefepime HCl 1 gm in 50 mls @ 100 mls/hr 12/02/24 16:00 12/05/24 15:22 Maxipime 1 Gm/Ns 50 Ml IVPB 100 mls/hr Q24H RACHEL Administration Albumin Human 50 mls @ 999 mls/hr 12/03/24 06:27 Albutein IVPB 01/02/25 06:26 Q10M PRN HYPOTENSION Insulin Aspart 2 - 5 units 12/02/24 08:00 12/05/24 17:33 Insulin Aspart (*Bkc) 100 Units/Ml SUB-Q 3 units TIDWM RACHEL Administration Protocol Insulin Glargine 5 units 12/01/24 22:00 12/05/24 20:42 Insulin Glargine (*Bkc) 100 Units/Ml SUB-Q 5 units HS RACHEL Administration Loratadine 10 mg 12/04/24 21:00 12/05/24 20:42 Loratadine 10 Mg Tablet PO 10 mg QHS RACHEL Administration Melatonin 3 mg 12/03/24 21:00 12/05/24 20:42 Melatonin 3 Mg Tablet PO 3 mg HS RACHEL Administration Metronidazole 500 mg 12/02/24 22:00 12/06/24 05:21 Metronidazole 500 Mg Tablet PO 500 mg Q8HR RACHEL Administration Home Med (Ripretinib 50 mg 12/02/24 21:00 12/05/24 20:45 [Qinlock] 50 Mg PO 01/01/25 20:59 50 mg Tablet) QHS RACHEL Administration Ondansetron HCl 4 mg 12/01/24 17:07 12/01/24 23:37 Ondansetron Inj 4 Mg/2 Ml Vial IV PUSH 4 mg Q4H PRN Administration Nausea Prednisone 40 mg 12/05/24 13:50 12/06/24 08:07 Prednisone 20 Mg Tablet PO 40 mg DAILY@0800 RACHEL Administration Sodium Bicarbonate 650 mg 12/01/24 21:10 12/06/24 08:08 Sodium Bicarbonate Tab 650 Mg Tablet PO 650 mg BID RACHEL Administration Tamsulosin HCl 0.4 mg 12/01/24 21:10 12/05/24 20:41 Tamsulosin Hcl 0.4 Mg Capsule PO 0.4 mg HS RACHEL Administration Radiology Results: ITS Impressions Chest X-Ray 12/01/24 16:13 IMPRESSION: No acute cardiopulmonary process. Chest CT 12/03/24 15:02 Impression: Patchy consolidation of groundglass opacity in the lingula, which more minimal involvement in the medial lower lobes and medial right middle lobe. Findings are most compatible with pneumonia. Correlate for pulmonary edema. Small bilateral pleural effusions with mild left basilar atelectasis. Stable mediastinal lymphadenopathy, nonspecific. Cholelithiasis. Foot X-Ray 12/03/24 15:09 Impression: No acute abnormality. Probable old healed fracture of the distal fibular shaft. Ankle MRI 12/04/24 14:18 IMPRESSION: 1. 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 2. 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 3. Moderate to severe fatty atrophy and diffuse increased muscular fluid signal in the intrinsic musculature of the foot suggestive of acute on chronic denervation change. 4. I can't. The the calcaneal insertions of the distal Achilles tendon and proximal plantar aponeurosis. Ankle Brachial Index 12/04/24 21:11 IMPRESSION: Mild stenosis bilaterally. Clinical correlation and further evaluation advised. Venous Doppler Study 12/05/24 15:17 IMPRESSION: Negative bilateral lower extremity venous US. No deep vein thrombosis. Labs Labs: Laboratory Results - last 24 hr 12/02/24 12/05/24 12/05/24 12:50 13:27 16:54 WBC RBC Hgb Hct MCV MCH MCHC RDW Plt Count MPV Immature Gran % (Auto) Neut % (Auto) Lymph % (Auto) Frontier % (Auto) Eos % (Auto) Baso % (Auto) Lymph # (Auto) Frontier # (Auto) Eos # (Auto) Baso # (Auto) Abs Immat Gran (auto) Absolute Neuts (auto) Absolute Nucleated RBC Nucleated RBC % Sodium Potassium Chloride Carbon Dioxide Anion Gap BUN Creatinine Estim Creat Clear Calc Estimated GFR Glucose POC Capillary Glucose 154 H 263 H Calcium Phosphorus Magnesium Total Bilirubin AST ALT Alkaline Phosphatase Total Protein Albumin Nasal RSV Type A (PCR) Detected A Nasal RSV Type B (PCR) Not detected Chlamy pneumoniae PCR Not detected Adenovirus DNA Not detected Human Bocavirus (JOANIE) Not detected Coronavirus Type OC43 Not detected Coronavirus Type HKU1 Not detected Coronavirus Type 229E Not detected Coronavirus Type NL63 Not detected Human Metapneumovir PCR Not detected Influenza A (PCR) Not detected Influenza A (H1) RNA Not detected Influenza A (H3) PCR Not detected M. pneumoniae DNA Not detected Parainfluenza PCR Not detected Parainfluenza 2 (PCR) Not detected Parainfluenza 3 RNA (PCR) Not detected Parainfluenza 4 (PCR) Not detected Rhino/Enterovirus (JOANIE) Detected A SARS-CoV-2 RNA (RT-PCR) Not detected Influenza Type B (PCR) Not detected Misc Test Comment see note 12/05/24 12/06/24 20:21 04:58 WBC 13.8 H RBC 3.80 L Hgb 10.9 L Hct 33.8 L MCV 88.9 MCH 28.7 MCHC 32.2 RDW 14.6 H Plt Count 181 MPV 10.3 Immature Gran % (Auto) 2.4 H Neut % (Auto) 77.9 H Lymph % (Auto) 15.3 L Frontier % (Auto) 3.9 Eos % (Auto) 0.1 Baso % (Auto) 0.4 Lymph # (Auto) 2.11 Frontier # (Auto) 0.5 Eos # (Auto) 0.0 Baso # (Auto) 0.1 Abs Immat Gran (auto) 0.33 H Absolute Neuts (auto) 10.7 H Absolute Nucleated RBC 0.000 Nucleated RBC % 0.0 Sodium 134 L Potassium 4.1 Chloride 98 Carbon Dioxide 24 Anion Gap 12 BUN 31 H Creatinine 4.58 H Estim Creat Clear Calc 14 Estimated GFR 12 L Glucose 276 H POC Capillary Glucose 343 H Calcium 8.6 Phosphorus 3.9 Magnesium 2.1 Total Bilirubin 1.4 H AST 23 ALT 15 Alkaline Phosphatase 79 Total Protein 6.4 Albumin 3.7 Nasal RSV Type A (PCR) Nasal RSV Type B (PCR) Chlamy pneumoniae PCR Adenovirus DNA Human Bocavirus (JOANIE) Coronavirus Type OC43 Coronavirus Type HKU1 Coronavirus Type 229E Coronavirus Type NL63 Human Metapneumovir PCR Influenza A (PCR) Influenza A (H1) RNA Influenza A (H3) PCR M. pneumoniae DNA Parainfluenza PCR Parainfluenza 2 (PCR) Parainfluenza 3 RNA (PCR) Parainfluenza 4 (PCR) Rhino/Enterovirus (JOANIE) SARS-CoV-2 RNA (RT-PCR) Influenza Type B (PCR) Misc Test Comment
[2024-12-06] MEDS: INSULIN ASPART (*BKC) 100 UNITS/ML SUB-Q ×2 (08:55→12:08)
--- NOTE | 2024-12-06 11:10 | P.PNNP_ITS ---
Progress Note: A&P Assessment and Plan (1) End stage renal disease: Code(s): N18.6 - End stage renal disease Status: Chronic Assessment and Plan: * HD tomorrow * continue //Monday dialysis schedule while hospitalized * follow electrolytes, volume status, and clearance (2) Low grade fever: Code(s): R50.9 - Fever, unspecified Status: Acute Assessment and Plan: * as noted in the ER (37.7?/99.9?) * noted again at 11:37PM on 12/01 and 3:47AM on 12/02 * no further fevers noted * etiology no clear: * CXR no evident pneumonia * UA no evidence infection * cultures negative to date * viral testing for influenza/COVID/RSV negative * respiratory pathogen penal pending * continue supportive therapy (3) Cough: Code(s): R05.9 - Cough, unspecified Status: Acute Assessment and Plan: * now productive with white sputum * sputum cultures and respiratory panel pending * on Robitussin and nebulizer treatments * CXR results noted * CT of chest ordered for today (4) Pneumonia: Code(s): J18.9 - Pneumonia, unspecified organism Status: Acute Assessment and Plan: * presumed etiology of #2 and #3 * CT of chest with ground-glass opacities consistent with pneumonia * on antibiotics * blood cultures NGTD * sputum cultures pending * continue supportive therap: * guaifenesin * incentive spirometer * Tessalon pearls * Duonebs PRN * follow respiratory status (5) Anemia: Code(s): D64.9 - Anemia, unspecified Status: Acute Assessment and Plan: * due to ESRD * Epogen with HD * follow trend of H/H (6) Hypertension: Code(s): I10 - Essential (primary) hypertension Status: Chronic Assessment and Plan: * fluctuating * continue home medications * follow trend of hemodynamics (7) Arthritis of ankle, left, degenerative: Qualifiers: Osteoarthritis type: primary Qualified Code(s): M19.072 - Primary osteoarthritis, left ankle and foot Code(s): M19.072 - Primary osteoarthritis, left ankle and foot Status: Acute Assessment and Plan: * Orthopedics following * recommendations noted * PT/OT as tolerated (8) Type 2 diabetes mellitus: Qualifiers: Diabetes mellitus exterminator helper insulin use: with mcc use Diabetes mellitus complication status: with kidney complications Diabetes mellitus complication detail: with chronic kidney disease Chronic kidney disease stage: on chronic dialysis Qualified Code(s): E11.22 - Type 2 diabetes mellitus with diabetic chronic kidney disease; N18.6 - End stage renal disease; Z79.4 - care home (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 L Subjective Date/time seen: 12/06/24 11:10 Interval history: Follow-up for end stage renal disease on hemodialysis. Tolerated dialysis treatment yesterday without any issues or problems; reports his cough is doing significantly better at this time; no other events overnight or earlier this morning; no other acute complaints voiced; at bedside and we discussed the situation. Exam 2 Narrative: General: elderly but WD/WN male in NAD Heart: normal S1 and S2; no rub Lungs: coarse breath sounds; decreased at bases Abdomen: soft, nontender, nondistended, positive bowel sounds Extremities: no cyanosis or clubbing; trace edema Skin: no nodules Objective Data Vital Signs Vital Signs: Vital Signs Temp Pulse Resp BP Pulse Ox O2 Del Method FiO2 12/06/24 08:08 64 12/06/24 08:00 Room Air 12/06/24 08:00 66 12/06/24 08:00 97.6 F 66 20 158/57 H 99 12/06/24 06:01 97.6 F 97 18 165/55 H 90 12/06/24 04:00 68 12/06/24 04:00 97.6 F 68 18 165/62 H 96 12/06/24 00:00 71 12/05/24 23:51 98.1 F 80 18 176/79 H 92 12/05/24 20:41 69 12/05/24 20:40 69 20 92 Room Air 21 12/05/24 20:37 82 20 92 Room Air 21 12/05/24 20:00 76 12/05/24 20:00 98.1 F 77 18 169/48 H 95 12/05/24 16:00 99.4 F 57 L 19 148/74 H 96 12/05/24 16:00 81 Intake/Output Intake/Output: Intake & Output 12/03/24 12/04/24 12/05/24 12/06/24 23:59 23:59 23:59 23:59 Intake Total 1360 1230 2060 236 Output Total 1426 4523 1843 [facility] -65 -170 -565 236 Meds/Results Medications: Active Medications Generic Name Dose Route Start Trade Name Freq PRN Reason Stop Acetaminophen 650 mg 12/01/24 17:07 Acetaminophen 325 Mg Tablet PO Q4H PRN Mild Pain (1-3) or Fever Albuterol/Ipratropium 3 ml 12/03/24 14:50 Ipratropium 0.5 Mg/Albuterol Sulfate 2.5 Mg Ampul.Neb 3 Ml INHALATION Q6HRT PRN Wheezing Amlodipine Besylate 20 mg 12/02/24 09:00 Amlodipine Besylate 10 Mg Tablet PO DAILY [facility] Aspirin 81 mg 12/03/24 10:30 Aspirin 81 Mg Enteric Tablet PO QAM [facility] Benzonatate 200 mg 12/04/24 17:00 Benzonatate 100 Mg Capsule PO TID [facility] Carvedilol 25 mg 12/01/24 21:10 Carvedilol 25 Mg Tablet PO Q12HR [facility] Dextrose 12.5 gm 12/01/24 22:01 Dextrose 50% 25 Gm/50 Ml Syringe IV PUSH PRN PRN Hypoglycemia Protocol Epoetin Robert-epbx 4,000 units 12/05/24 18:10 Epoetin Robert-Epbx 4,000 Units/Ml Vial IV PUSH 12/05/24 18:11 ONCE ONE Ergocalciferol 1,250 mcg 12/08/24 09:00 Ergocalciferol (Vitamin D2) 1,250 Mcg (50,000 Units) Capsule PO WEEKLY [facility] Furosemide 20 mg 12/01/24 21:10 Furosemide Inj 40 Mg/4 Ml Vial IV PUSH DAILY [facility] Glucagon 1 mg 12/01/24 22:01 Glucagon For Inj 1 Mg Vial IM PRN PRN Hypoglycemia Protocol Glucose 15 gm 12/01/24 22:01 Glucose Oral Gel 15 Gm Of Glucse In 37.5 Gm Tube PO PRN PRN Hypoglycemia Protocol Guaifenesin 1,200 mg 12/04/24 21:00 Guaifenesin 12 Hr 600 Mg Tabcr PO Q12HR [facility] Heparin Sodium (Porcine) 5,000 units 12/01/24 21:05 Heparin Sodium 5,000 Units/Ml Vial SUB-Q Q12HR [facility] Hydralazine HCl 100 mg 12/01/24 21:10 Hydralazine Hcl 50 Mg Tablet PO Q12HR [facility] Cefepime HCl 1 gm in 50 mls @ 100 mls/hr 12/02/24 16:00 Maxipime 1 Gm/Ns 50 Ml IVPB Q24H RACHEL Albumin Human 50 mls @ 999 mls/hr 12/03/24 06:27 Albutein IVPB 01/02/25 06:26 Q10M PRN HYPOTENSION Sodium Chloride 1,000 mls @ 999 mls/hr 12/05/24 18:06 Normal Saline Iv IV CONT 12/05/24 19:06 .Q1H1M ONE Insulin Aspart 2 - 5 units 12/02/24 08:00 Insulin Aspart (*Bkc) 100 Units/Ml SUB-Q TIDWM [facility] Protocol Insulin Glargine 5 units 12/01/24 22:00 Insulin Glargine (*Bkc) 100 Units/Ml SUB-Q HS [facility] Loratadine 10 mg 12/04/24 21:00 Loratadine 10 Mg Tablet PO QHS [facility] Melatonin 3 mg 12/03/24 21:00 Melatonin 3 Mg Tablet PO [facility] Metronidazole 500 mg 12/02/24 22:00 Metronidazole 500 Mg Tablet PO Q8HR [facility] Home Med (Ripretinib 50 mg 12/02/24 21:00 [Qinlock] 50 Mg PO 01/01/25 20:59 Tablet) QHS [facility] Ondansetron HCl 4 mg 12/01/24 17:07 Ondansetron Inj 4 Mg/2 Ml Vial IV PUSH Q4H PRN Nausea Prednisone 40 mg 12/05/24 13:50 Prednisone 20 Mg Tablet PO DAILY@0800 [facility] Sodium Bicarbonate 650 mg 12/01/24 21:10 Sodium Bicarbonate Tab 650 Mg Tablet PO BID [facility] Tamsulosin HCl 0.4 mg 12/01/24 21:10 Tamsulosin Hcl 0.4 Mg Capsule PO [facility] Radiology Results: ITS Impressions Chest X-Ray 12/01/24 16:13 IMPRESSION: No acute cardiopulmonary process. Chest CT 12/03/24 15:02 Impression: Patchy consolidation of groundglass opacity in the lingula, which more minimal involvement in the medial lower lobes and medial right middle lobe. Findings are most compatible with pneumonia. Correlate for pulmonary edema. Small bilateral pleural effusions with mild left basilar atelectasis. Stable mediastinal lymphadenopathy, nonspecific. Cholelithiasis. Foot X-Ray 12/03/24 15:09 Impression: No acute abnormality. Probable old healed fracture of the distal fibular shaft. Ankle MRI 12/04/24 14:18 IMPRESSION: 1. 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 2. 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 3. Moderate to severe fatty atrophy and diffuse increased muscular fluid signal in the intrinsic musculature of the foot suggestive of acute on chronic denervation change. 4. I can't. The the calcaneal insertions of the distal Achilles tendon and proximal plantar aponeurosis. Ankle Brachial Index 12/04/24 21:11 IMPRESSION: Mild stenosis bilaterally. Clinical correlation and further evaluation advised. Venous Doppler Study 12/05/24 15:17 IMPRESSION: Negative bilateral lower extremity venous US. No deep vein thrombosis. Labs Labs: Laboratory Tests 12/06/24 04:58 12/06/24 04:58 Calcium 8.6 Phosphorus 3.9 Magnesium 2.1 Total Bilirubin 1.4 H AST 23 ALT 15 Alkaline Phosphatase 79 Total Protein 6.4 Albumin 3.7
[2024-12-06] MEDS: INSULIN ASPART (*BKC) 100 UNITS/ML 10 UNITS SUB-Q (12:08)
--- NOTE | 2024-12-06 12:29 | P.DS_ITS ---
DS: Admitting Diagnosis Discharge Date 12/06/2024 Admitting Diagnosis Pneumonia/ Fever/arthritis of left ankle causing immobility DS: Discharge Diagnosis Discharge Diagnosis (1) Pneumonia: Code(s): J18.9 - Pneumonia, unspecified organism Status: Acute (2) Fever: Code(s): R50.9 - Fever, unspecified Status: Acute (3) ESRD (end stage renal disease) on dialysis: Code(s): N18.6 - End stage renal disease; Z99.2 - Dependence on renal dialysis Status: Chronic (4) HTN (hypertension): Code(s): I10 - Essential (primary) hypertension Status: Chronic (5) Type 2 diabetes mellitus: Qualifiers: Chronic kidney disease stage: on chronic dialysis Diabetes mellitus complication detail: with chronic kidney disease Diabetes mellitus complication status: with kidney complications Diabetes mellitus 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 manufacturing insulin use: with shelter use Qualified Code(s): E11.22 - Type 2 diabetes mellitus with diabet ic chronic kidney disease; N18.6 - End stage renal disease; Z79.4 - [facility] (current) use of insulin; Z99.2 - Dependence on renal dialysis Code(s): E11.9 - Type 2 diabetes mellitus without complications Status: Chronic (6) CAD (coronary artery disease): Code(s): I25.10 - Atherosclerotic heart disease of [place] coronary artery without angina pectoris Status: Acute (7) Unsteady gait: Code(s): R26.81 - Unsteadiness on feet Status: Acute DS: Summary Hospital Course Reason for hospitalization: Pneumonia/ Fever/arthritis of left ankle causing immobility Hospital Course: Admission: Patient was a male admitted to the medical unit for further evaluation of fever and cough. He reports onset of symptoms of not feeling well around (today is Monday), with fever and coughing starting Monday. He attended dialysis on Monday without issues and did not experience cough during dialysis. He took Tylenol prior to hospital arrival today but continued to have fever. ER found WBCs 19.7. Chest X-ray was normal. He denies chest pain, palpitations, or fluttering during coughing episodes. He has a dialysis port in his chest with no signs of infection. He reports some chest tightness and wheezing. The patient notes this is the first time he has coughed since arriving at the hospital. Patient does not usually have problems with a cough. In the ED: patient is found to have leukocytosis, fever and severe cough initial chest x-ray did not show any acute cardiopulmonary process however CT of left foot had possible concerns for AVN. Patient was admitted to the medical unit for further evaluation and treatment. Hospital Course: patient underwent evaluation for fever and cough initially no known source CXR was not showing any pneumonia however follow-up CT chest did show suspicion for lobe pneumonia. Patient's dialysis catheter with no signs of infection however there was some concerning swelling to his left foot with worsening pain which was restricting his ability to ambulate at baseline. Orthopedics were consulted for further evaluation and MRI of left foot was shown to just have severe degenerative arthritis and osteochondroma. patient was initially on IV cefepime, vancomycin and Flagyl pending results MRI de-escalated patient to oral Augmentin for pneumonia coverage however patient continued to have a pretty severe nonproductive cough initiated patient on guaifenesin, DuoNebs and added Pulmicort still continue with severe cough unrelieved likely bronchiolitis so I added 40 mg of prednisone patient had 95% improvement to severe cough. patient continued to receive his hemodialysis inpatient tolerated well with nephrology following. patient's fever and cough both resolved with treatment, blood cultures with no growth and evaluation by ortho recommended elevation when at rest ice packs and to wear fractured boot with ambulation. Patient was eval by PT/OT who recommended outpatient therapy patient currently lives at [facility] but they do provide PT/OT services. patient was discharged home with prescriptions for 3 more days of prednisone 40, Tessalon Perles, guaif enesin and 3 more days of Augmentin for pneumonia coverage. patient and spouse at bedside both acknowledged and agreed with discharge plan. Status at Discharge Functional status at discharge: uses cane/walker Overall status at discharge: patient is progressing back to baseline Time Spent with Patient Time attestation: Total time spent providing and/or coordinating discharge services: Time spent: Greater than 30 minutes Exam Narrative: General: Well developed well nourished patient in NAD HEENT: normocephalic Neck: supple Neuro: Alert and oriented x4 CV:RRR Resp: Diminished throughout, rhonci heard lower left lobe, non-productive dry cough Abd: Soft, non distended. No pain to palpation. Positive bowel sounds Extremities: No significant swelling, erythema, or pain to palpation. Left foot with bruising to the lateral aspect, palpable pedal pulse to LLE DS: Data Data Completed and Pending Labs on day of discharge: Labs from last 24 hours 12/06/24 12/06/24 12/06/24 11:43 07:50 04:58 WBC 13.8 H RBC 3.80 L Hgb 10.9 L Hct 33.8 L MCV 88.9 MCH 28.7 MCHC 32.2 RDW 14.6 H Plt Count 181 MPV 10.3 Immature Gran % (Auto) 2.4 H Neut % (Auto) 77.9 H Lymph % (Auto) 15.3 L [place] % (Auto) 3.9 Eos % (Auto) 0.1 Baso % (Auto) 0.4 Lymph # (Auto) 2.11 [place] # (Auto) 0.5 Eos # (Auto) 0.0 Baso # (Auto) 0.1 Abs Immat Gran (auto) 0.33 H Absolute Neuts (auto) 10.7 H Absolute Nucleated RBC 0.000 Nucleated RBC % 0.0 Sodium 134 L Potassium 4.1 Chloride 98 Carbon Dioxide 24 Anion Gap 12 BUN 31 H Creatinine 4.58 H Estim Creat Clear Calc 14 Estimated GFR 12 L Glucose 276 H POC Capillary Glucose 414 H 247 H Calcium 8.6 Phosphorus 3.9 Magnesium 2.1 Total Bilirubin 1.4 H AST 23 ALT 15 Alkaline Phosphatase 79 Total Protein 6.4 Albumin 3.7 Nasal RSV Type A (PCR) Nasal RSV Type B (PCR) Chlamy pneumoniae PCR Adenovirus DNA Human Bocavirus (JOANIE) Coronavirus Type OC43 Coronavirus Type HKU1 Coronavirus Type 229E Coronavirus Type NL63 Human Metapneumovir PCR Influenza A (PCR) Influenza A (H1) RNA Influenza A (H3) PCR M. pneumoniae DNA Parainfluenza PCR Parainfluenza 2 (PCR) Parainfluenza 3 RNA (PCR) Parainfluenza 4 (PCR) Rhino/Enterovirus (JOANIE) SARS-CoV-2 RNA (RT-PCR) Influenza Type B (PCR) Misc Test Comment 12/05/24 12/05/24 12/05/24 20:21 16:54 13:27 WBC RBC Hgb Hct MCV MCH MCHC RDW Plt Count MPV Immature Gran % (Auto) Neut % (Auto) Lymph % (Auto) [place] % (Auto) Eos % (Auto) Baso % (Auto) Lymph # (Auto) [place] # (Auto) Eos # (Auto) Baso # (Auto) Abs Immat Gran (auto) Absolute Neuts (auto) Absolute Nucleated RBC Nucleated RBC % Sodium Potassium Chloride Carbon Dioxide Anion Gap BUN Creatinine Estim Creat Clear Calc Estimated GFR Glucose POC Capillary Glucose 343 H 263 H 154 H Calcium Phosphorus Magnesium Total Bilirubin AST ALT Alkaline Phosphatase Total Protein Albumin Nasal RSV Type A (PCR) Nasal RSV Type B (PCR) Chlamy pneumoniae PCR Adenovirus DNA Human Bocavirus (JOANIE) Coronavirus Type OC43 Coronavirus Type HKU1 Coronavirus Type 229E Coronavirus Type NL63 Human Metapneumovir PCR Influenza A (PCR) Influenza A (H1) RNA Influenza A (H3) PCR M. pneumoniae DNA Parainfluenza PCR Parainfluenza 2 (PCR) Parainfluenza 3 RNA (PCR) Parainfluenza 4 (PCR) Rhino/Enterovirus (JOANIE) SARS-CoV-2 RNA (RT-PCR) Influenza Type B (PCR) [facility] Test Comment 12/02/24 12:50 WBC RBC Hgb Hct MCV MCH MCHC RDW Plt Count MPV Immature Gran % (Auto) Neut % (Auto) Lymph % (Auto) [place] % (Auto) Eos % (Auto) Baso % (Auto) Lymph # (Auto) [place] # (Auto) Eos # (Auto) Baso # (Auto) Abs Immat Gran (auto) Absolute Neuts (auto) Absolute Nucleated RBC Nucleated RBC % Sodium Potassium Chloride Carbon Dioxide Anion Gap BUN Creatinine Estim Creat Clear Calc Estimated GFR Glucose POC Capillary Glucose Calcium Phosphorus Magnesium Total Bilirubin AST ALT Alkaline Phosphatase Total Protein Albumin Nasal RSV Type A (PCR) Detected A Nasal RSV Type B (PCR) Not detected Chlamy pneumoniae PCR Not detected Adenovirus DNA Not detected Human Bocavirus (JOANIE) Not detected Coronavirus Type OC43 Not detected Coronavirus Type HKU1 Not detected Coronavirus Type 229E Not detected Coronavirus Type NL63 Not detected Human Metapneumovir PCR Not detected Influenza A (PCR) Not detected Influenza A (H1) RNA Not detected Influenza A (H3) PCR Not detected M. pneumoniae DNA Not detected Parainfluenza PCR Not detected Parainfluenza 2 (PCR) Not detected Parainfluenza 3 RNA (PCR) Not detected Parainfluenza 4 (PCR) Not detected Rhino/Enterovirus (JOANIE) Detected A SARS-CoV-2 RNA (RT-PCR) Not detected Influenza Type B (PCR) Not detected Misc Test Comment see note Preliminary micro results at discharge 12/01/24 15:19 Blood Culture - Preliminary Blood 12/01/24 15:19 Blood Culture - Preliminary Blood Imaging Radiologist's impression: Radiology Results: ITS Impressions Chest X-Ray 12/01/24 16:13 IMPRESSION: No acute cardiopulmonary process. Chest CT 12/03/24 15:02 Impression: Patchy consolidation of groundglass opacity in the lingula, which more minimal involvement in the medial lower lobes and medial right middle lobe. Findings are most compatible with pneumonia. Correlate for pulmonary edema. Small bilateral pleural effusions with mild left basilar atelectasis. Stable mediastinal lymphadenopathy, nonspecific. Cholelithiasis. Foot X-Ray 12/03/24 15:09 Impression: No acute abnormality. Probable old healed fracture of the distal fibular shaft. Ankle MRI 12/04/24 14:18 IMPRESSION: 1. 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 2. 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 3. Moderate to severe fatty atrophy and diffuse increased muscular fluid signal in the intrinsic musculature of the foot suggestive of acute on chronic denervation change. 4. I can't. The the calcaneal insertions of the distal Achilles tendon and proximal plantar aponeurosis. Ankle Brachial Index 12/04/24 21:11 IMPRESSION: Mild stenosis bilaterally. Clinical correlation and further evaluation advised. Discharge Plan Discharge Attending physician on discharge: Morgan Nova Consulting providers: Mel Lama; Justa Tripathi; Aguilar Villegas Discharging Clinician: Justa Tripathi Anticipated Discharge Date/Time: 12/06/24 12:08 Patient Disposition: Home Activity: may shower, as tolerated and follow weight bearing status Diet: diabetic and renal Discharge Instructions: 1). Pneumonia * I have prescribed oral antibiotics please complete as indicated even if feeling better * I also prescribed prednisone 40mg daily for 3 more days * continue using your incentive spirometer * Continue with guaifenesin and Tessalon pearls for cough * May take acetaminophen for fevers and mild pain 2). Arthritis of the left ankle * Ice and elevation * PT/OT weight bearing as tolerated with fracture boot * follow-up with Orthopedics outpatient as needed 3). ESRD * Continue with dialysis as scheduled last treatment was 12/05/2024 * Recommend Renal diet * Follow-up with Nephrology as scheduled 4). Diabetes * continue with home insulin * I do recommend monitor your blood sugars closely for the next few days since you are on prednisone this can raise your blood sugars * Continue with diabetic/Renal diet Patient Instructions: Antibiotic Form, Bronchiolitis (DC), Dialysis Nutrition Plan (DC), Managing Diabetes During Sick Days (DC), Bacterial Pneumonia (DC), Diabetic Hyperglycemia (DC), End Stage Kidney Disease (DC), Arthritis (DC), Diabetes and Nutrition (DC) Patient Language: Azeri Stand Alone Forms: General Discharge Information Follow-up/Referrals: Aguilar Villegas MD [Physician] - Call for Appointment Sampson,Anselmo Walker MD [Primary Care Provider] - 2 Weeks Discharge Medications: New prednisone 20 mg Tablet 40 mg PO DAILY@0800 Qty: 6 0RF aspirin 81 mg Tablet,Delayed Release (Dr/Ec) 81 mg PO QAM Qty: 30 0RF benzonatate 100 mg Capsule 200 mg PO TID Qty: 30 0RF loratadine 10 mg Tablet 10 mg PO QHS Qty: 30 0RF guaifenesin [Mucus Relief ER] 600 mg Tablet Extended Release 12hr 1,200 mg PO Q12HR Qty: 20 0RF amoxicillin-pot clavulanate 250-125 mg tablet 1 tablet PO .Q12 Qty: 6 0RF Continued amlodipine 10 mg tablet 20 mg PO DAILY carvedilol 25 mg tablet 25 mg PO Q12H colesevelam 625 mg tablet 625 mg PO BID ergocalciferol (vitamin D2) 1,250 mcg (50,000 unit) capsule 1,250 mcg PO WEEKLY furosemide 20 mg tablet 20 mg PO DAILY Fiasp FlexTouch U-100 Insulin 100 unit/mL (3 mL) insulin pen 1 sliding scale dose SUBCUT ACHS insulin degludec [Tresiba FlexTouch U-100] 100 unit/mL (3 mL) insulin pen 5 unit SUBCUT QPM pitavastatin calcium 4 mg tablet 4 mg PO DAILY Qinlock 50 mg tablet 50 mg PO DAILY sodium bicarbonate 650 mg tablet 650 mg PO BID tamsulosin 0.4 mg capsule 0.4 mg PO HS hydralazine 100 mg tablet 100 mg PO BID Qty: 180 3RF Other Ambulatory Orders: PT Outpatient Eval and Treat (ONCE) Timeframe: [id number] Location: Determined by Patient Ordered By: Justa Tripathi Date of admission: 12/01/24 17:07 Primary Care Provider: Adrián,Anselmo Walker Admitting Provider: Yadi Ramirez Attending physician on admission: Joann Bush Condition: Stable Quality VTE Prophylaxis VTE prophylaxis: mechanical ordered and pharmacologic ordered -Patient's previous records reviewed on admission -ER notes reviewed in detail on admission -discussed all findings and current treatment plan with patient/Family/POA -Consultations reviewed for recommendations -Patient's disposition for safe discharge discussed with case advocate Dictation performed by [employer] direct speech recognition software, therefore mobile disc jockey variants and typographical errors may occur. Hospitalist MIPS Heart Failure (Exclusion) Patient has history of Heart Transplant or Left Ventricular Assistive Device?: No IF YES, STOP HERE Heart Failure (Qualifier) Patient has current or prior documentation of LVEF less than or equal to 40%, or mod/servere depressed LVSF?: No IF NO, STOP HERE
== END 2024-12-06 13:50 | disposition home or self-care (01) | DRG 193 ==
LOC: ANHED 15:06 → ANH2MED 19:18
PROVIDERS: Internal Medicine Nephrology; Nurse Practitioner; Physician Assistant; Admitting Provider Internal Medicine; Emergency Provider Student in an Organized Health Care Education/Training Program; PCP Family Medicine; Visit Provider Nurse Practitioner Family
DX: J18.9 Pneumonia, unspecified organism (principal); N18.6 End stage renal disease; I12.0 Hypertensive chronic kidney disease with stage 5 chronic kidney disease or end stage renal disease; M19.072 Primary osteoarthritis, left ankle and foot; R26.81 Unsteadiness on feet; E11.22 Type 2 diabetes mellitus with diabetic chronic kidney disease; I25.10 Atherosclerotic heart disease of native coronary artery without angina pectoris; D63.1 Anemia in chronic kidney disease; D16.22 Benign neoplasm of long bones of left lower limb; Z20.822 Contact with and (suspected) exposure to COVID-19; Z87.19 Personal history of other diseases of the digestive system; Z95.1 Presence of aortocoronary bypass graft; Z87.891 Personal history of nicotine dependence; Z79.4 Long term (current) use of insulin; Z99.2 Dependence on renal dialysis
CPT/HCPCS: 36415; 71045; 71250; 73630; 73721; 80053; 80069; 81001; 82948; 83605; 83735; 84100; 84145; 84550; 85025; 85652; 86140; 86706; 87040; 87070; 87205; 87340; 87633; 87637; 87641; 92610; 93005; 93922; 93970; 94640; 96365; 96367; 96375; 97161; 97165; 99285; A9270; C8929; G0257; J0692; J1644; J1815; J1836; J1938; J2405; J3370; J7030; J7120; J7512; Q5105; Q9957